=== PATIENT | male | born 1965 | race Two or more races ===

== ENCOUNTER 2023-06-09 22:42 | Emergency (ER) | payer OTHER ==
[~2023-06-09] VITALS: Ht 177.8 cm; Wt 80.0 kg
[2023-06-09] MEDS ORDERED: APIX5TAB PO (23:45)
[2023-06-09] MEDS ORDERED: CEPH250C PO (23:45)
[2023-06-09] MEDS ORDERED: ACE3T PO (23:45)
[2023-06-09 23:53] VITALS: BP 142/92; PULSE 82; TEMP 98.4; O2SAT 98
[2023-06-09 23:57] VITALS: PULSE 116; RESP 18; O2SAT 96
== END 2023-06-09 23:58 | disposition home or self-care (01) ==
LOC: EDBD 22:42 → ER 22:42
DX: S01.01XA Laceration without foreign body of scalp, initial encounter (principal); Z76.0 Encounter for issue of repeat prescription; Y04.8XXA Assault by other bodily force, initial encounter; Y93.89 Activity, other specified; Y92.89 Other specified places as the place of occurrence of the external cause; Y99.8 Other external cause status
CPT/HCPCS: 12002

== ENCOUNTER 2023-08-16 03:44 | Inpatient (IN) | payer OTHER ==
[~2023-08-16] VITALS: Ht 180.3 cm; Wt 91.0 kg
[2023-08-16] VITALS (9 sets, daily range): BP systolic 119–134; BP diastolic 69–111; PULSE 59–138; RESP 18–22; TEMP 97.6–98.9; O2SAT 93–99
[~2023-08-16 03:44] MED LIST: ACE3T PO; APIX5TAB PO; CEPH250C PO
[2023-08-16 04:09] LABS: Basophils # (auto) 0.3 10 ^3/uL (0-0.2); Basophils % (auto) 2.5 % (0.0-2.0); Eosinophils # (auto) 0.1 10 ^3/uL (0-0.8); Eosinophils % (auto) 1.2 % (0.0-7.0); Hematocrit 43.4 % (41.0-53.0); Hemoglobin 13.9 g/dL (13.5-17.5); Lymphocytes # (auto) 2.3 10 ^3/uL (0.4-5.4); Lymphocytes % (auto) 20.6 % (10.0-50.0); Mean Corpuscular Hemoglobin 31.4 pg (28.0-32.0); Mean Corpuscular Hgb Conc. 32.1 g/dL (32.0-36.0); Mean Corpuscular Volume 97.7 fL (80.0-100.0); Monocytes # (auto) 1.2 10 ^3/uL (0-1.3); Neutrophils # (auto) 7.3 10 ^3/uL (1.6-8.6); Neutrophils % (auto) 64.7 % (37.0-80.0); Nucleated Red Blood Cells % 0.1 %; Red Blood Cells 4.45 10^6/uL (4.5-5.90); Red Cell Distribution Width 17.6 % (11.8-14.3); White Blood Cell 11.3 10^3/uL (4.4-10.8)
[2023-08-16 04:14] LABS: Chloride 102 mmol/L (98-107); Potassium 3.8 mmol/L (3.5-5.1); Sodium 135 mmol/L (136-145)
[2023-08-16 04:15] LABS: Anion Gap 12 (5-15); Calcium 9.2 mg/dL (8.7-10.4); Carbon Dioxide 21 mmol/L (20-30)
[2023-08-16] MEDS ORDERED: AMIODARONE BOLUS KIT 100 ML IV ONE (04:15)
[2023-08-16] MEDS: METOPROLOL TARTRATE 1MG/1ML-5ML VIAL IV ONE ×2 (04:18→20:35)
[2023-08-16 04:20] LABS: BUN/Creatinine Ratio 18.5 (10.0-20.0); Blood Urea Nitrogen 24 mg/dL (9-23); Glucose 140 mg/dL (74-106)
[2023-08-16] MEDS ORDERED: AMIODARONE 450mg/250ml AE 250 ML IV SCH (04:30)
[2023-08-16] MEDS: DIGOXIN (250MCG/ML) 2 ML AMPULE IV ONE (04:32)
[2023-08-16] MEDS: FUROSEMIDE 40 MG/4 ML VIAL IV ONE (05:52)
[2023-08-16] MEDS ORDERED: NITROGLYCERIN 0.4 MG SL TAB SL PRN (06:00)
[2023-08-16] MEDS ORDERED: ONDANSETRON HCL 4 MG/2 ML VIAL IV PRN (06:00)
[2023-08-16] MEDS ORDERED: ACETAMINOPHEN 325 MG TAB PO PRN (06:00)
[2023-08-16] MEDS ORDERED: MORPHINE SULFATE INJ 2 MG/ml SYRG IV PRN (06:00)
[2023-08-16] MEDS: IOHEXOL 350 MG/ML 100ML IJ ONE (06:33)
[2023-08-16 06:36] LABS: INR 1.36 (0.9-1.15); Partial Thromboplastin Time 27.8 SEC (24.5-34.5)
[2023-08-16] MEDS: ENOXAPARIN SOD 100 MG/1 ML SYRINGE SC SCH (06:47)
[2023-08-16] MEDS: METOPROLOL SUCCINATE XL 50 MG TAB PO SCH (08:18)
[2023-08-16 08:24] LABS: Urine Bacteria None Seen /hpf (None Seen); Urine WBC None Seen /hpf (0 - 3)
[2023-08-16 08:44] LABS: Urine Blood Negative /uL (Negative); Urine Clarity Clear (Clear); Urine Protein, UAD Negative (Negative); Urine Specific Gravity 1.009 (1.001-1.035); Urine Urobilinogen Normal (Negative); Urine pH 6.5 (5.0-9.0)
[2023-08-16 08:45] LABS: Urine Color Straw (Yellow)
[2023-08-16] MEDS: ASPirin 81 mg TAB PO SCH (11:18)
[2023-08-16] MEDS: DIGOXIN 0.125 MG TAB PO SCH (11:18)
[2023-08-16] MEDS: LOSARTAN POTASSIUM 25 MG TAB PO SCH (11:19)
[2023-08-16] MEDS ORDERED: DIGO0.12 PO (12:13)
[2023-08-16] MEDS ORDERED: METO-289 PO (12:13)
[2023-08-16] MEDS ORDERED: LOSA-533 PO (12:13)
[2023-08-16] MEDS ORDERED: FURO40TA4 PO (12:13)
[2023-08-16 12:14] LABS: Amphetamine Screen, Urine Neg (NEGATIVE); Barbiturate Scree,Urine Neg (NEGATIVE); Benzodiazephine Screen, Urine Neg (NEGATIVE); Cocaine Screen, Urine Neg (NEGATIVE); Opiate Scree,Urine Neg (NEGATIVE)
[2023-08-16 12:15] LABS: Cannabinoid Screen, Urine Neg (NEGATIVE); Phencyclidine Screen, Urine Neg (NEGATIVE)
[2023-08-16 15:22] LABS: Magnesium 1.7 mg/dL (1.6-2.6)
[2023-08-16] MEDS: MAGNESIUM SULFATE 1GM/100ML 100 ML IV ONE (17:10)
[2023-08-16] MEDS: FUROSEMIDE 20 MG/2 ML VIAL IV SCH (17:24)
[2023-08-16] MEDS: SACUBITRIL-VALSARTAN 24mg/26mg TAB PO SCH (22:43)
[2023-08-16] MEDS: ATORVASTATIN 20 MG TAB PO SCH (22:44)
[2023-08-17] VITALS (8 sets, daily range): BP systolic 104–123; BP diastolic 67–89; PULSE 50–111; RESP 17–20; TEMP 97.2–98.2; O2SAT 92–100
[2023-08-17] MEDS: FUROSEMIDE 20 MG/2 ML VIAL IV ONE (01:27)
[2023-08-17] MEDS: METOPROLOL TARTRATE 1MG/1ML-5ML VIAL IV ONE (03:19)
[2023-08-17 06:10] LABS: Basophils # (auto) 0.1 10 ^3/uL (0-0.2); Eosinophils # (auto) 0.1 10 ^3/uL (0-0.8); Eosinophils % (auto) 1.1 % (0.0-7.0); Hematocrit 42.7 % (41.0-53.0); Hemoglobin 13.9 g/dL (13.5-17.5); Lymphocytes # (auto) 2.2 10 ^3/uL (0.4-5.4); Lymphocytes % (auto) 19.4 % (10.0-50.0); Mean Corpuscular Hemoglobin 31.7 pg (28.0-32.0); Mean Corpuscular Hgb Conc. 32.5 g/dL (32.0-36.0); Mean Corpuscular Volume 97.6 fL (80.0-100.0); Monocytes # (auto) 1.4 10 ^3/uL (0-1.3); Monocytes % (auto) 12.8 % (0.0-12.0); Neutrophils # (auto) 7.4 10 ^3/uL (1.6-8.6); Neutrophils % (auto) 65.7 % (37.0-80.0); Red Blood Cells 4.37 10^6/uL (4.5-5.90); Red Cell Distribution Width 17.5 % (11.8-14.3); White Blood Cell 11.2 10^3/uL (4.4-10.8)
[2023-08-17 06:24] LABS: Alanine Aminotransferase 38 U/L (7-40); Albumin 3.7 g/dL (3.2-4.8); Alkaline Phosphatase 130 U/L (46-116); Anion Gap 12 (5-15); Aspartate Aminotransferase 42 U/L (13-40); BUN/Creatinine Ratio 19.7 (10.0-20.0); Blood Urea Nitrogen 23 mg/dL (9-23); Calcium 8.8 mg/dL (8.5-10.1); Carbon Dioxide 22 mmol/L (20-30); Chloride 102 mmol/L (98-107); Glucose 89 mg/dL (74-106); Potassium 3.6 mmol/L (3.5-5.1); Sodium 136 mmol/L (136-145)
[2023-08-17 06:25] LABS: Total Protein 5.7 g/dL (5.7-8.2)
[2023-08-17] MEDS: ASPirin 81 mg TAB PO SCH (09:17)
[2023-08-17] MEDS: POTASSIUM CHL 20 Meq TABLET PO ONE (09:17)
[2023-08-17] MEDS: SPIRONOLACTONE 25 MG TAB PO SCH (09:18)
[2023-08-17] MEDS: EMPAGLIFLOZIN 10 MG TAB PO SCH (09:19)
[2023-08-17] MEDS: METOPROLOL SUCCINATE XL 50 MG TAB PO SCH (09:19)
[2023-08-17] MEDS: MAGNESIUM SULFATE 1GM/100ML 100 ML IV ONE (17:01)
[2023-08-17] MEDS: APIXABAN 5 MG TAB PO SCH (21:25)
[2023-08-18] VITALS (7 sets, daily range): BP systolic 102–116; BP diastolic 67–87; PULSE 63–131; RESP 17–20; TEMP 97.6–98.3; O2SAT 94–98
[2023-08-18 07:45] LABS: Anion Gap 10 (5-15); Carbon Dioxide 23 mmol/L (20-30); Chloride 105 mmol/L (98-107); Potassium 3.6 mmol/L (3.5-5.1); Sodium 138 mmol/L (136-145)
[2023-08-18 07:47] LABS: Calcium 8.8 mg/dL (8.5-10.1)
[2023-08-18 07:52] LABS: BUN/Creatinine Ratio 16.3 (10.0-20.0); Blood Urea Nitrogen 24 mg/dL (9-23); Glucose 100 mg/dL (74-106)
[2023-08-19 01:00] VITALS: BP 114/93; PULSE 67; RESP 16; TEMP 97.7; O2SAT 93
[2023-08-19 05:00] VITALS: BP 106/83; PULSE 75; RESP 18; TEMP 97.7; O2SAT 93
[2023-08-19 07:35] VITALS: PULSE 120
[2023-08-19 09:22] VITALS: BP 116/70; PULSE 103; RESP 18; TEMP 97.6; O2SAT 95
[2023-08-19] MEDS ORDERED: SPIR25TA PO (12:22)
[2023-08-19] MEDS ORDERED: METO-6 PO (12:22)
[2023-08-19] MEDS ORDERED: ASPI-325 PO (12:22)
[2023-08-19] MEDS ORDERED: ATOR20TA50 PO (12:22)
[2023-08-19] MEDS ORDERED: DIGO0.12 PO (12:22)
[2023-08-19] MEDS ORDERED: FURO40TA4 PO (12:22)
[2023-08-19] MEDS ORDERED: APIX5TAB PO (12:22)
[2023-08-19] MEDS ORDERED: EMPA1TAB PO (12:22)
[2023-08-19] MEDS ORDERED: SACU1TAB PO (12:22)
[2023-08-19 14:50] VITALS: BP 101/81; PULSE 90; RESP 17; TEMP 98.1; O2SAT 96
== END 2023-08-19 15:58 | disposition home or self-care (01) | DRG 201 ==
LOC: ER 03:44 → TELE 06:09 → TELE-WESTW 12:13
PROVIDERS: ADMIT Nurse Practitioner; ATTEND Internal Medicine
DX: I48.20 Chronic atrial fibrillation, unspecified (principal); I21.A1 Myocardial infarction type 2; I50.23 Acute on chronic systolic (congestive) heart failure; I42.0 Dilated cardiomyopathy; I11.0 Hypertensive heart disease with heart failure; E78.5 Hyperlipidemia, unspecified; F17.210 Nicotine dependence, cigarettes, uncomplicated; Z88.0 Allergy status to penicillin; Z88.8 Allergy status to other drugs, medicaments and biological substances; Z79.1 Long term (current) use of non-steroidal anti-inflammatories (NSAID); Z79.2 Long term (current) use of antibiotics; Z79.899 Other long term (current) drug therapy; Z82.49 Family history of ischemic heart disease and other diseases of the circulatory system; Z79.01 Long term (current) use of anticoagulants; Z91.128 Patient's intentional underdosing of medication regimen for other reason
CPT/HCPCS: 36415; 71045; 71275; 80048; 80053; 80061; 80307; 81001; 83036; 83735; 83880; 84443; 84484; 85025; 85379; 85610; 85730; 87081; 93005; 93306; 96374; 96375; 99291; G0378

== ENCOUNTER 2024-02-11 04:07 | Inpatient (IN) | payer OTHER ==
[~2024-02-11] VITALS: Ht 185.4 cm; Wt 94.6 kg
[~2024-02-11 04:07] MED LIST changes: -ACE3T PO; +ASPI-325 PO; +ATOR20TA50 PO; -CEPH250C PO; +DIGO0.12 PO; +EMPA1TAB PO; +FURO40TA4 PO; +METO-6 PO; +SACU1TAB PO; +SPIR25TA PO
[2024-02-11 05:45] VITALS: PULSE 125; RESP 18; O2SAT 99
[2024-02-11 07:26] VITALS: PULSE 147; RESP 25; O2SAT 97
[2024-02-11] MEDS: METOPROLOL TARTRATE 1MG/1ML-5ML VIAL IV ONE ×2 (08:16→11:52)
[2024-02-11] MEDS: SPIRONOLACTONE 25 MG TAB PO ONE (08:16)
[2024-02-11] MEDS: SODIUM CHLORIDE 0.9% 1,000 ML IV ONE (08:19)
[2024-02-11 08:43] LABS: Basophils # (auto) 0.1 10 ^3/uL (0-0.2); Eosinophils # (auto) 0.1 10 ^3/uL (0-0.8); Eosinophils % (auto) 1.2 % (0.0-7.0); Lymphocytes # (auto) 1.4 10 ^3/uL (0.4-5.4); Mean Corpuscular Hgb Conc. 31.8 g/dL (32.0-36.0); Nucleated Red Blood Cells % 0.1 %
[2024-02-11 08:45] LABS: Basophils % (auto) 1.2 % (0.0-2.0); Hematocrit 38.7 % (41.0-53.0); Hemoglobin 12.3 g/dL (13.5-17.5); Lymphocytes % (auto) 15.1 % (10.0-50.0); Mean Corpuscular Hemoglobin 26.3 pg (28.0-32.0); Mean Corpuscular Volume 82.7 fL (80.0-100.0); Monocytes # (auto) 1.3 10 ^3/uL (0-1.3); Neutrophils % (auto) 67.5 % (37.0-80.0); Platelet Count (auto) 323 10^3/uL (140-450); Red Blood Cells 4.68 10^6/uL (4.5-5.90); Red Cell Distribution Width 21.5 % (11.8-14.3)
[2024-02-11] MEDS: FUROSEMIDE 20 MG/2 ML VIAL IV ONE (08:48)
[2024-02-11 08:56] LABS: INR 1.39 (0.9-1.15); Partial Thromboplastin Time 26.2 SEC (24.5-34.5); Prothrombin Time 14.4 sec (9.3-11.8)
[2024-02-11 08:59] LABS: Alanine Aminotransferase 27 U/L (7-40); Albumin 4.1 g/dL (3.2-4.8); Alkaline Phosphatase 229 U/L (46-116); Anion Gap 8 (5-15); Aspartate Aminotransferase 31 U/L (13-40); BUN/Creatinine Ratio 17.2 (10.0-20.0); Bilirubin, Total 2.5 mg/dL (0.2-1.0); Blood Urea Nitrogen 23 mg/dL (9-23); Calcium 9.6 mg/dL (8.7-10.4); Carbon Dioxide 27 mmol/L (20-31); Chloride 101 mmol/L (98-107); Glucose 126 mg/dL (74-106); Magnesium 2.2 mg/dL (1.6-2.6); Potassium 3.7 mmol/L (3.5-5.1); Sodium 136 mmol/L (136-145); Total Protein 6.6 g/dL (5.7-8.2)
[2024-02-11 10:19] LABS: Urine Bacteria None Seen /hpf (None Seen)
[2024-02-11] MEDS: IOHEXOL 350 MG/ML 100ML IJ ONE (10:44)
[2024-02-11 10:47] LABS: Urine Blood Negative /uL (Negative); Urine Clarity Clear (Clear); Urine Color Yellow (Yellow); Urine Hyaline Cast MANY /lpf (0 - 2); Urine Mucus FEW (None Seen); Urine Protein, UAD 1+ (Negative); Urine Specific Gravity 1.022 (1.001-1.035); Urine Urobilinogen 2 mg/dL (Negative); Urine WBC 1 /hpf (0 - 3)
[2024-02-11] MEDS ORDERED: NITROGLYCERIN 0.4 MG SL TAB SL PRN (11:45)
[2024-02-11] MEDS ORDERED: MORPHINE SULFATE INJ 2 MG/ml SYRG IV PRN ×2 (11:45)
[2024-02-11] MEDS ORDERED: ONDANSETRON HCL 4 MG/2 ML VIAL IV PRN (11:45)
[2024-02-11] MEDS: dilTIAZem 25 MG/5 ML VIAL IV ONE (11:46)
[2024-02-11 12:54] LABS: Amphetamine Screen, Urine Pos (NEGATIVE); Barbiturate Scree,Urine Neg (NEGATIVE); Benzodiazephine Screen, Urine Neg (NEGATIVE); Cannabinoid Screen, Urine Neg (NEGATIVE); Opiate Scree,Urine Neg (NEGATIVE); Phencyclidine Screen, Urine Neg (NEGATIVE)
[2024-02-11 12:59] LABS: Cocaine Screen, Urine Neg (NEGATIVE)
[2024-02-11] MEDS: ENOXAPARIN SOD 40 MG/0.4 ML SYRINGE SC SCH (14:05)
[2024-02-11 17:35] LABS: Body Fluid pH 8
[2024-02-11] MEDS: FUROSEMIDE 20 MG/2 ML VIAL IV SCH (18:12)
[2024-02-11 19:17] LABS: Body Fluid Polymorphonuclear 70 % (0-25); Body Fluid Red Blood Cells 290 CUMM (0-2000); Body Fluid White Blood Cells 113 CUMM (0-200)
[2024-02-11 19:25] VITALS: PULSE 135; RESP 22; O2SAT 97
[2024-02-11] MEDS ORDERED: ATORVASTATIN 20 MG TAB PO SCH (22:00)
[2024-02-11] MEDS ORDERED: METOPROLOL SUCCINATE XL 50 MG TAB PO SCH (22:00)
[2024-02-11] MEDS: SACUBITRIL-VALSARTAN 24mg/26mg TAB PO SCH (22:48)
[2024-02-11] MEDS: ATORVASTATIN 20 MG TAB PO SCH (22:49)
[2024-02-11] MEDS: APIXABAN 5 MG TAB PO SCH (22:49)
[2024-02-12] VITALS (37 sets, daily range): BP systolic 33–135; BP diastolic 17–112; PULSE 100–156; RESP 13–35; TEMP 97.6–98.2; O2SAT 92–100
[2024-02-12 05:33] LABS: Hematocrit 38.4 % (41.0-53.0); Mean Corpuscular Hemoglobin 26.4 pg (28.0-32.0); Mean Corpuscular Hgb Conc. 31.3 g/dL (32.0-36.0); Mean Corpuscular Volume 84.3 fL (80.0-100.0); Platelet Count (auto) 304 10^3/uL (140-450); Red Blood Cells 4.55 10^6/uL (4.5-5.90); White Blood Cell 10.8 10^3/uL (4.4-10.8)
[2024-02-12 05:38] LABS: Red Cell Distribution Width 21.5 % (11.8-14.3)
[2024-02-12 05:40] LABS: Band Neutrophils % (manual) 0; Basophils % (manual) 0 (0.0-2.0); Blast Cells 0; Eosinophils % (manual) 0 (0-7); Metamyelocytes % 0; Myelocytes % 0; Promyelocytes % 0; Reactive Lymphocytes 0
[2024-02-12 05:41] LABS: Anion Gap 11 (5-15); Carbon Dioxide 23 mmol/L (20-31); Chloride 99 mmol/L (98-107); Potassium 3.9 mmol/L (3.5-5.1); Sodium 133 mmol/L (136-145)
[2024-02-12 05:42] LABS: Calcium 9.2 mg/dL (8.7-10.4)
[2024-02-12 05:47] LABS: BUN/Creatinine Ratio 17.1 (10.0-20.0); Blood Urea Nitrogen 26 mg/dL (9-23); Glucose 104 mg/dL (74-106)
[2024-02-12 08:02] LABS: Lymphocytes % (manual) 20 (10.0-50.0); Monocytes % (manual) 21 (0-12); Platelet Estimate Adequate
[2024-02-12] MEDS: EMPAGLIFLOZIN 10 MG TAB PO SCH (10:26)
[2024-02-12 11:08] LABS: Protein, Body Fluid 1.4 g/dL (.)
[2024-02-12] MEDS: DIGOXIN 0.125 MG TAB PO ONE (16:27)
[2024-02-12] MEDS: POTASSIUM CHL 20 Meq TABLET PO ONE (16:27)
[2024-02-12] MEDS: METOPROLOL TARTRATE 1MG/1ML-5ML VIAL IV ONE (16:28)
[2024-02-12] MEDS: PHENYLEPHRINE IV 250 ML IV SCH (16:55)
[2024-02-12] MEDS: PHENYLEPHRINE IV 250 ML IV ONE (16:59)
[2024-02-12] MEDS: FUROSEMIDE 40 MG/4 ML VIAL IV SCH (18:35)
[2024-02-12] MEDS: FUROSEMIDE INJECTION 100 MG in SODIUM CHL 0.9% 100 ML IV ONE (20:55)
[2024-02-12] MEDS: METOPROLOL SUCCINATE XL 50 MG TAB PO SCH (21:54)
[2024-02-13] VITALS (47 sets, daily range): BP systolic 91–137; BP diastolic 36–96; PULSE 60–159; RESP 14–46; TEMP 97.5–99.7; O2SAT 82–100
[2024-02-13] MEDS ORDERED: LORazepam 0.5 MG TAB PO PRN (02:00)
[2024-02-13 06:50] LABS: Chloride 98 mmol/L (98-107); Potassium 3.6 mmol/L (3.5-5.1); Sodium 135 mmol/L (136-145)
[2024-02-13 06:51] LABS: Anion Gap 9 (5-15); Carbon Dioxide 28 mmol/L (20-31)
[2024-02-13 06:52] LABS: Calcium 8.9 mg/dL (8.7-10.4)
[2024-02-13 06:56] LABS: BUN/Creatinine Ratio 23.8 (10.0-20.0); Glucose 92 mg/dL (74-106)
[2024-02-13 07:01] LABS: Blood Urea Nitrogen 39 mg/dL (9-23)
[2024-02-13 07:13] LABS: Basophils # (auto) 0.1 10 ^3/uL (0-0.2); Eosinophils # (auto) 0.1 10 ^3/uL (0-0.8); Hematocrit 38.3 % (41.0-53.0); Hemoglobin 12.1 g/dL (13.5-17.5); Lymphocytes # (auto) 1.4 10 ^3/uL (0.4-5.4); Lymphocytes % (auto) 15.1 % (10.0-50.0); Mean Corpuscular Hgb Conc. 31.5 g/dL (32.0-36.0); Mean Corpuscular Volume 82.6 fL (80.0-100.0); Monocytes # (auto) 1.3 10 ^3/uL (0-1.3); Monocytes % (auto) 14.5 % (0.0-12.0); Neutrophils # (auto) 6.2 10 ^3/uL (1.6-8.6); Neutrophils % (auto) 68.4 % (37.0-80.0); Nucleated Red Blood Cells % 0.1 %; Platelet Count (auto) 313 10^3/uL (140-450); Red Blood Cells 4.63 10^6/uL (4.5-5.90); Red Cell Distribution Width 21.6 % (11.8-14.3)
[2024-02-13] MEDS: DIGOXIN 0.125 MG TAB PO SCH (09:11)
[2024-02-13] MEDS: TAMSULOSIN HYDROCHLORIDE 0.4 MG CAP PO ONE ×2 (10:45→17:34)
[2024-02-13] MEDS: DIGOXIN (250MCG/ML) 2 ML AMPULE IV ONE (13:45)
[2024-02-13] MEDS: POTASSIUM EFFERVESENT TAB 25 MEQ PO ONE (17:11)
[2024-02-14] VITALS (34 sets, daily range): BP systolic 97–174; BP diastolic 63–96; PULSE 90–136; RESP 12–28; TEMP 97.5–98; O2SAT 37–100
[2024-02-14 05:43] LABS: Chloride 103 mmol/L (98-107); Potassium 4.4 mmol/L (3.5-5.1); Sodium 136 mmol/L (136-145)
[2024-02-14 05:44] LABS: Anion Gap 5 (5-15); Carbon Dioxide 28 mmol/L (20-31)
[2024-02-14 05:45] LABS: Basophils # (auto) 0.1 10 ^3/uL (0-0.2); Basophils % (auto) 0.9 % (0.0-2.0); Calcium 8.6 mg/dL (8.7-10.4); Eosinophils # (auto) 0.2 10 ^3/uL (0-0.8); Hematocrit 37.3 % (41.0-53.0); Hemoglobin 11.9 g/dL (13.5-17.5); Lymphocytes # (auto) 1.1 10 ^3/uL (0.4-5.4); Lymphocytes % (auto) 13.8 % (10.0-50.0); Mean Corpuscular Hemoglobin 26.5 pg (28.0-32.0); Mean Corpuscular Hgb Conc. 31.8 g/dL (32.0-36.0); Mean Corpuscular Volume 83.4 fL (80.0-100.0); Monocytes # (auto) 1.2 10 ^3/uL (0-1.3); Monocytes % (auto) 14.8 % (0.0-12.0); Neutrophils # (auto) 5.7 10 ^3/uL (1.6-8.6); Neutrophils % (auto) 68.5 % (37.0-80.0); Nucleated Red Blood Cells % 0.1 %; Platelet Count (auto) 290 10^3/uL (140-450); Red Blood Cells 4.47 10^6/uL (4.5-5.90); Red Cell Distribution Width 21.4 % (11.8-14.3); White Blood Cell 8.3 10^3/uL (4.4-10.8)
[2024-02-14 05:49] LABS: BUN/Creatinine Ratio 23.4 (10.0-20.0); Blood Urea Nitrogen 33 mg/dL (9-23); Glucose 112 mg/dL (74-106)
[2024-02-14] MEDS: SPIRONOLACTONE 25 MG TAB PO SCH (09:57)
[2024-02-14] MEDS: CALCIUM CARB 500 MG CHEW TAB PO PRN (10:27)
[2024-02-14 11:17] LABS: Hepatitis B Surface Antigen Negative (Negative)
[2024-02-14 11:37] LABS: Hepatitis A Ab IgM Negative
[2024-02-14 11:39] LABS: Hepatitis B Core IgM Negative; Hepatitis C Antibody Negative (Negative)
[2024-02-14] MEDS ORDERED: CALCIUM CARB 500 MG CHEW TAB PO SCH (12:00)
[2024-02-14] MEDS: TAMSULOSIN HYDROCHLORIDE 0.4 MG CAP PO SCH (18:00)
[2024-02-15] VITALS (9 sets, daily range): BP systolic 99–122; BP diastolic 63–94; PULSE 56–140; RESP 16–20; TEMP 36.5; O2SAT 96–98
[2024-02-15] MEDS ORDERED: ALBUTEROL SULF 2.5 MG/0.5ML(0.5%) NEB SOLN NEB SCH (06:00)
[2024-02-15 06:48] LABS: Anion Gap 7 (5-15); Carbon Dioxide 24 mmol/L (20-31); Chloride 106 mmol/L (98-107); Potassium 4.6 mmol/L (3.5-5.1); Sodium 137 mmol/L (136-145)
[2024-02-15 06:50] LABS: Calcium 9.4 mg/dL (8.7-10.4)
[2024-02-15 06:54] LABS: BUN/Creatinine Ratio 18.6 (10.0-20.0); Basophils # (auto) 0.1 10 ^3/uL (0-0.2); Basophils % (auto) 0.9 % (0.0-2.0); Blood Urea Nitrogen 24 mg/dL (9-23); Eosinophils # (auto) 0.2 10 ^3/uL (0-0.8); Eosinophils % (auto) 1.8 % (0.0-7.0); Glucose 112 mg/dL (74-106); Hematocrit 38.5 % (41.0-53.0); Hemoglobin 12.3 g/dL (13.5-17.5); Lymphocytes # (auto) 1.1 10 ^3/uL (0.4-5.4); Mean Corpuscular Hemoglobin 26.6 pg (28.0-32.0); Mean Corpuscular Volume 83.3 fL (80.0-100.0); Monocytes # (auto) 1.3 10 ^3/uL (0-1.3); Monocytes % (auto) 14.7 % (0.0-12.0); Neutrophils # (auto) 6.4 10 ^3/uL (1.6-8.6); Neutrophils % (auto) 70.6 % (37.0-80.0); Nucleated Red Blood Cells % 0.1 %; Platelet Count (auto) 334 10^3/uL (140-450); Red Blood Cells 4.62 10^6/uL (4.5-5.90); Red Cell Distribution Width 21.9 % (11.8-14.3); White Blood Cell 9.1 10^3/uL (4.4-10.8)
[2024-02-15] MEDS ORDERED: guaiFENesin-DM 100/10mg/5ml SYR PO PRN (09:15)
[2024-02-15] MEDS ORDERED: FURO1TAB31 PO (09:41)
[2024-02-15] MEDS ORDERED: DIGO1TAB48 PO (09:41)
[2024-02-15] MEDS ORDERED: CARV-214 PO (09:41)
[2024-02-15] MEDS: CARVEDILOL 3.125 MG TAB PO SCH (10:18)
[2024-02-15] MEDS: FUROSEMIDE 20 MG/2 ML VIAL IV ONE (10:19)
[2024-02-15] MEDS ORDERED: FUROSEMIDE 20 MG TAB PO SCH ×2 (18:00)
== END 2024-02-15 13:55 | disposition home or self-care (01) | DRG 133 ==
LOC: ER 04:07 → TELE 11:42 → DOU IN ICU 02-12 12:27 → TELE-CENTR 02-14 13:25
PROVIDERS: ADMIT Internal Medicine; ATTEND Internal Medicine
PROC: 0W993ZZ Drainage of Right Pleural Cavity, Percutaneous Approach (ICD-10-PCS; principal; 2024-02-11)
DX: J96.01 Acute respiratory failure with hypoxia (principal); N17.0 Acute kidney failure with tubular necrosis; I50.23 Acute on chronic systolic (congestive) heart failure; I42.0 Dilated cardiomyopathy; D68.69 Other thrombophilia; E87.1 Hypo-osmolality and hyponatremia; I42.7 Cardiomyopathy due to drug and external agent; I13.0 Hypertensive heart and chronic kidney disease with heart failure and stage 1 through stage 4 chronic kidney disease, or unspecified chronic kidney disease; I47.20 Ventricular tachycardia, unspecified; I48.19 Other persistent atrial fibrillation; N18.2 Chronic kidney disease, stage 2 (mild); E66.9 Obesity, unspecified; J91.8 Pleural effusion in other conditions classified elsewhere; N40.1 Benign prostatic hyperplasia with lower urinary tract symptoms; R33.8 Other retention of urine; F17.210 Nicotine dependence, cigarettes, uncomplicated; T50.995A Adverse effect of other drugs, medicaments and biological substances, initial encounter; Z82.49 Family history of ischemic heart disease and other diseases of the circulatory system; Z91.199 Patient's noncompliance with other medical treatment and regimen due to unspecified reason; Z68.27 Body mass index [BMI] 27.0-27.9, adult; Z86.718 Personal history of other venous thrombosis and embolism; Z88.0 Allergy status to penicillin; Y92.89 Other specified places as the place of occurrence of the external cause
CPT/HCPCS: 32555; 36415; 71045; 71046; 71275; 76604; 76942; 80048; 80053; 80074; 80162; 80307; 81001; 83735; 83880; 83986; 84443; 84484; 85007; 85025; 85027; 85379; 85610; 85730; 86703; 87081; 87205; 89051; 93005; 93306; G0378

== ENCOUNTER 2024-04-15 02:23 | Emergency (ER) | payer OTHER ==
[~2024-04-15] VITALS: Ht 180.3 cm; Wt 102.0 kg
[~2024-04-15 02:23] MED LIST changes: +CARV-214 PO; +DIGO1TAB48 PO; +FURO1TAB31 PO; -METO-6 PO
[2024-04-15 03:40] VITALS: BP 102/74; PULSE 85; RESP 18; TEMP 97.6; O2SAT 98
[2024-04-15] MEDS ORDERED: CLIN1CAP70 PO (03:44)
[2024-04-15] MEDS ORDERED: ACET500T58 PO (03:44)
--- NOTE | 2024-04-15 03:44 | ED.PDOC ---
Eye-HPI HPI Comments 58 year old male presents to ER with complaints of toothache x 1 week. Patient reports he has been experiencing left upper toothache with associated swelling to left upper gums x 1 week. He rates his current left upper tootache pain a 9/10 without radiation. States he has been taking aspirin for his pain without relief. Patient presents to ER ambulatory on arrival, with steady gait, in no distress and states he has not yet contacted a dentist to follow-up with but plans on contacting one this week. Denies fever, body aches, chills, facial swelling, headache or any further symptoms/complaints Chief Complaint: Tooth Pain Time Seen by MD: 02:24 Primary Care Provider: JANICE Reviewed Notes: Nurses Notes, Medications, Allergies Allergies: Coded Allergies: Amiodarone (Verified Allergy, Unknown, 08/16/23) Metoprolol (Verified Allergy, Unknown, rapid decrease in blood pressure, 02/13/24) Penicillins (Verified Allergy, Unknown, 06/09/23) Home Meds Active Scripts Acetaminophen (Acetaminophen) 500 Mg Tab, 500 MG PO QIDP, #30 TAB 0 Refills Prov:DONNELL BRITO 04/15/24 Clindamycin Hcl (Clindamycin Hcl) 300 Mg Cap, 300 MG PO QID for 7 Days, #28 CAP 0 Refills Prov:DONNELL BRITO 04/15/24 Furosemide (Lasix) 40 Mg Tab, 40 MG PO DAILY for 30 Days, #30 TAB Prov:ANTIONE LUA RESIDENT 02/15/24 Carvedilol (COREG) 3.125 Mg Tab, 3.125 MG PO Q12HR for 30 Days, #60 TAB Prov:ANTIONE LUA RESIDENT 02/15/24 Digoxin (Lanoxin) 125 Mcg Tab, 0.125 MG PO DAILY for 30 Days, #30 TAB Prov:ANTIONE LUA RESIDENT 02/15/24 Spironolactone (Aldactone) 25 Mg Tab, 12.5 MG PO DAILY for 30 Days, #15 TAB 6 Refills Prov:JAH AYALA DO 08/19/23 Sacubitril-Valsartan (Entresto 24-26 mg) 1 Tab Tab, 1 TAB PO BID for 30 Days, #60 TAB 6 Refills Prov:JAH AYALA DO 08/19/23 Empagliflozin (Jardiance) 10 Mg Tab, 10 MG PO DAILY for 30 Days, #30 TAB 6 Refills Prov:JAH AYALA DO 08/19/23 Atorvastatin Calcium (ATORVASTATIN CALCIUM) 20 Mg Tab, 10 MG PO HS for 30 Days, #15 TAB 6 Refills Prov:JAH AYALA DO 08/19/23 Aspirin (Aspirin Low Dose) 81 Mg Tab, 81 MG PO DAILY for 30 Days, #30 TAB 6 Refills Prov:JAH AYALA DO 08/19/23 Digoxin (Digoxin) 125 Mcg Tab, 1 TAB PO DAILY for 30 Days, #30 TAB 6 Refills Prov:JAH AYALA DO 08/19/23 Furosemide (Furosemide) 40 Mg Tab, 1 TAB PO DAILY for 30 Days, #30 TAB 6 Refills Prov:JAH AYALA DO 08/19/23 Apixaban Base (ELIQUIS) 5 Mg Tab, 5 MG PO BID for 30 Days, #60 TAB 6 Refills Prov:JAH AYALA DO 08/19/23 Information Source: Patient Mode of Arrival: Ambulatory Past Medical History PAST MEDICAL HISTORY: AFIB, CHF, High Lipids, HTN Surgical History: Hernia Repair Family History Family History: Unknown Social History Smoker: Cigarettes, Less Than 1 Pack/Day Alcohol: Occasionally Drugs: Methamphetamine Lives In: Home Constitutional: denies: chills, diaphoresis, fatigue, fever, malaise, sweats, weakness, others EENTM: reports: others (As stated in HPI) Respiratory: denies: cough, hemoptysis, orthopnea, SOB at rest, shortness of breath, SOB with excertion, stridor, wheezing, others Cardiovascular: denies: chest pain, dizzy spells, diaphoresis, Dyspnea on exertion, edema, irregular heart beat, left arm pain, lightheadedness, palpitations, PND, syncope, others Gastrointestinal: denies: abdomen distended, abdominal pain, blood streaked bowels, constipated, diarrhea, dysphagia, difficulty swallowing, hematemesis, melena, nausea, poor appetite, poor fluid intake, rectal bleeding, rectal pain, vomiting, others Genitourinary: denies: burning, dysuria, flank pain, frequency, hematuria, incontinence, penile discharge, penile sore, pain, testicle pain, testicle swelling, urgency, others Neurological: denies: dizziness, fainting, headache, left sided numbness, left sided weakness, numbness, paresthesia, pre-existing deficit, right sided numbness, right sided weakness, seizure, speech problems, tingling, tremors, weakness, others Musculoskeletal: denies: back pain, gout, joint pain, joint swelling, muscle pain, muscle stiffness, neck pain, others Integumetry: denies: bruises, change in color, change in hair/nails, dryness, laceration, lesions, lumps, rash, wounds, others Allergic/Immunocompromised: denies: Difficulty Healing, Frequent Infections, Hives, Itching, others Hematologic/Lymphatic: denies: anemia, blood clots, easy bleeding, easy bruising, swollen glands, others Endocrine: denies: excessive hunger, excessive sweating, excessive thirst, excessive urination, flushing, intolerance to cold, intolerance to heat, unexplained weight gain, unexplained weight loss, others Psychiatric: denies: anxiety, bipolar disorder, depression, hopeless, panic disorder, schizophrenia, sleepless, suicidal, others Physical Exam General Appearance: No Apparent Distress HEENT: PERRL/EOMI, Pharynx Normal, TMs Normal Neck: Full Range of Motion, Non-Tender, Normal Respiratory: Chest Non-Tender, Lungs Clear, No Accessory Muscle Use, No Respiratory Distress, Normal Breath Sounds Cardiovascular: No Murmur, No Gallop, Regular Rate/Rhythm Breast Exam: Deferred Gastrointestinal: NOT DONE Genitalia: Deferred Pelvic: Deferred Rectal: Deferred Extremities: Normal capillary refill, Normal range of motion Neurologic: Alert, certified nurse midwife II-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 Was a procedure done?: No Sedation Sedation?: No Images 1 - Missing tooth #12 noted with mild surrounding gum swelling/erythema, no bleeding/drainage noted. No facial swelling/skin changes noted. EENT DIFF Eye: N/A Mouth: Thrush, Other (dental abscess, Angel's angina, fractured tooth) X-Ray, Labs, Meds, VS Vital Signs Date Time Temp Pulse Resp B/P (MAP) Pulse Ox O2 Delivery O2 Flow Rate FiO2 04/15/24 03:40 85 18 98 Room Air 04/15/24 03:40 97.6 85 18 102/74 (83) 98 97.6 04/15/24 03:15 97.6 85 18 102/74 (83) 98 Hep-lock IV ordered Clindamycin 900 IV ordered Hurricane spray ordered. Patient educated on proper use/dosage Patient reported improvement in symptoms and in no distress prior to discharge Smoking/methamphetamine cessation discussed and advised Advised to follow up with PCP and dentist in 1-2 days Patient verbalized understanding and agreeable with current plan of care Advised to return to ER immediately if symptoms worsen Time of 1ST Reevaluation: 03:20 Reevaluation 1ST: N/A Patient Education/Counseling: Diagnosis, Treatment, Prognosis, Need For Follow Up Family Education/Counseling: No Family Present Departure 1 Departure Time of Disposition: 03:42 Impression: Primary Impression: Dental infection Disposition: 01 HOME / SELF CARE / HOMELESS Condition: Stable e-Prescriptions Acetaminophen (Acetaminophen) 500 Mg Tab 500 MG PO QIDP, #30 TAB 0 Refills Prov: DONNELL BRITO 04/15/24 Clindamycin Hcl (Clindamycin Hcl) 300 Mg Cap 300 MG PO QID for 7 Days, #28 CAP 0 Refills Prov: DONNELL BRITO 04/15/24 Discharged With: Self Critical Care Note Critical Care Time?: No Stability Stability form required: No Heart Score Heart Score: Heart Score Response (Comments) Value History N/A 0 EKG N/A 0 Age N/A 0 Risk Factors N/A 0 Troponin N/A 0 Total 0 DONNELL BRITO Apr 15, 2024 03:44
[2024-04-15] MEDS: BENZOCAINE (DENTAL) 20 % SPRAY 60ML MT ONE (03:58)
[2024-04-15] MEDS: CLINDAMYCIN 900MG IV 50 ML IV ONE (04:13)
== END 2024-04-15 05:07 | disposition home or self-care (01) ==
LOC: ER 02:23
DX: K04.7 Periapical abscess without sinus (principal); I11.0 Hypertensive heart disease with heart failure; I50.9 Heart failure, unspecified; I48.91 Unspecified atrial fibrillation; F17.210 Nicotine dependence, cigarettes, uncomplicated; E78.5 Hyperlipidemia, unspecified; Z79.01 Long term (current) use of anticoagulants; Z79.82 Long term (current) use of aspirin; Z79.84 Long term (current) use of oral hypoglycemic drugs; Z79.899 Other long term (current) drug therapy; Z88.0 Allergy status to penicillin; Z98.890 Other specified postprocedural states; Z88.8 Allergy status to other drugs, medicaments and biological substances
CPT/HCPCS: 96365; 99284; J3490

== ENCOUNTER 2024-09-02 20:58 | Inpatient (IN) | payer OTHER ==
[~2024-09-02] VITALS: Ht 180.3 cm; Wt 83.3 kg
[2024-09-02] MEDS: CEFEPIME 2GM/50ML NS 50 ML IV ONE (00:45)
[~2024-09-02 20:58] MED LIST changes: +ACET500T58 PO; +CLIN1CAP70 PO
[2024-09-02 21:42] LABS: Basophils # (auto) 0.1 10 ^3/uL (0-0.2); Eosinophils # (auto) 0.1 10 ^3/uL (0-0.8); Hemoglobin 14.3 g/dL (13.5-17.5); Lymphocytes # (auto) 1.3 10 ^3/uL (0.4-5.4); Monocytes # (auto) 1.7 10 ^3/uL (0-1.3); Nucleated Red Blood Cells % 0.1 %
[2024-09-02 21:43] LABS: Basophils % (auto) 0.9 % (0.0-2.0); Eosinophils % (auto) 0.5 % (0.0-7.0); Hematocrit 44.8 % (41.0-53.0); Lymphocytes % (auto) 11.8 % (10.0-50.0); Mean Corpuscular Hemoglobin 25.9 pg (28.0-32.0); Mean Corpuscular Hgb Conc. 31.9 g/dL (32.0-36.0); Mean Corpuscular Volume 81.2 fL (80.0-100.0); Monocytes % (auto) 14.7 % (0.0-12.0); Neutrophils # (auto) 8.1 10 ^3/uL (1.6-8.6); Neutrophils % (auto) 72.1 % (37.0-80.0); Platelet Count (auto) 367 10^3/uL (140-450); Red Blood Cells 5.51 10^6/uL (4.5-5.90); White Blood Cell 11.3 10^3/uL (4.4-10.8)
[2024-09-02 21:44] LABS: Red Cell Distribution Width 20.9 % (11.8-14.3)
--- NOTE | 2024-09-02 21:44 | ED.PDOC ---
SOB-HPI HPI Comments 59-year-old male with PMHx CHF, A-Fib presents with a chief complaint of SOB x 4 days. Patient mentions that he ran out of Lasix x 6 months ago. Patient mentions that he has been getting Lasix from a 2nd hand person and not getting refills from his primary care doctor. Patient also reports non-productive coughing. Chief Complaint: Shortness of Breath Time Seen by MD: 21:08 Primary Care Provider: JANICE Toussaint notes: Medications, Allergies Information Source: Patient Mode of Arrival: EMS Severity: Moderate Timing: Days Duration: Since onset Context: At Rest PE Risk Factors: None History of: CHF Prehospital treatment: 12 Lead EKG, [employer] Associated Signs and Symptoms: Cough If cough with SOB: Non-Productive Past Medical History PAST MEDICAL HISTORY: AFIB, CHF, High Lipids, HTN Surgical History: Hernia Repair Family History Family History: Unknown Social History Smoker: Cigarettes, Less Than 1 Pack/Day Alcohol: Occasionally Drugs: Methamphetamine Lives In: Home Constitutional: denies: chills, diaphoresis, fatigue, fever, malaise, sweats, weakness, others EENTM: denies: blurred vision, double vision, ear bleeding, ear discharge, ear drainage, ear pain, ear ringing, eye pain, eye redness, hearing loss, mouth pain, mouth swelling, nasal discharge, nose bleeding, nose congestion, nose pain, photophobia, tearing, throat pain, throat swelling, voice changes, others Respiratory: reports: cough, shortness of breath; denies: hemoptysis, orthopnea, SOB at rest, SOB with excertion, stridor, wheezing, others Cardiovascular: denies: chest pain, dizzy spells, diaphoresis, Dyspnea on exertion, edema, irregular heart beat, left arm pain, lightheadedness, palpitations, PND, syncope, others Gastrointestinal: denies: abdomen distended, abdominal pain, blood streaked bowels, constipated, diarrhea, dysphagia, difficulty swallowing, hematemesis, melena, nausea, poor appetite, poor fluid intake, rectal bleeding, rectal pain, vomiting, others Genitourinary: denies: burning, dysuria, flank pain, frequency, hematuria, incontinence, penile discharge, penile sore, pain, testicle pain, testicle swelling, urgency, others Neurological: denies: dizziness, fainting, headache, left sided numbness, left sided weakness, numbness, paresthesia, pre-existing deficit, right sided numbness, right sided weakness, seizure, speech problems, tingling, tremors, weakness, others Musculoskeletal: denies: back pain, gout, joint pain, joint swelling, muscle pain, muscle stiffness, neck pain, others Integumetry: denies: bruises, change in color, change in hair/nails, dryness, laceration, lesions, lumps, rash, wounds, others Allergic/Immunocompromised: denies: Difficulty Healing, Frequent Infections, Hives, Itching, others Hematologic/Lymphatic: denies: anemia, blood clots, easy bleeding, easy bruising, swollen glands, others Endocrine: denies: excessive hunger, excessive sweating, excessive thirst, excessive urination, flushing, intolerance to cold, intolerance to heat, unexplained weight gain, unexplained weight loss, others Psychiatric: denies: anxiety, bipolar disorder, depression, hopeless, panic disorder, schizophrenia, sleepless, suicidal, others All Other Systems: Reviewed and Negative Physical Exam General Appearance: Moderate Distress HEENT: Normal ENT Inspection, Pharynx Normal, TMs Normal Neck: Full Range of Motion, Non-Tender, Normal, Normal Inspection Respiratory: Chest Non-Tender, Lungs Clear, No Accessory Muscle Use, No Respiratory Distress, Normal Breath Sounds Cardiovascular: No Edema, No JVD, No Murmur, No Gallop, Normal Peripheral Pulses, Regular Rate/Rhythm Breast Exam: Deferred Gastrointestinal: No Organomegaly, Non Tender, No Pulsatile Mass, Normal Bowel Sounds, Soft Genitalia: Deferred Pelvic: Deferred Rectal: Deferred Extremities: No calf tenderness, Normal capillary refill, Normal inspection, Normal range of motion, Non-tender, No pedal edema Musculoskeletal : Apperance: Normal Neurologic: Alert, radio reporter II-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 Was a procedure done?: No Differential Dx Differential Diagnosis: CHF, COPD, Myocardial infarction, Pneumonia, Pulmonary Embolism, URI X-Ray, Labs, Meds, VS Vital Signs Date Time Temp Pulse Resp B/P (MAP) Pulse Ox O2 Delivery O2 Flow Rate FiO2 09/02/24 22:08 138 09/02/24 21:11 99.0 130 24 119/86 (97) 87 99.0 09/02/24 20:58 156 Lab Test 09/02/24 23:15 09/02/24 22:21 09/02/24 21:21 Range/Units Lactic Acid Level Pending 3.3 *H 0.4-2.0 mmol/L Troponin I High Sensitivity 48 50 </=54 ng/L White Blood Count 11.3 H 4.4-10.8 10^3/uL Red Blood Count 5.51 4.5-5.90 10^6/uL Hemoglobin 14.3 13.5-17.5 g/dL Hematocrit 44.8 41.0-53.0 % Mean Corpuscular Volume 81.2 80.0-100.0 fL Mean Corpuscular Hemoglobin 25.9 L 28.0-32.0 pg Mean Corpuscular Hemoglobin Concent 31.9 L 32.0-36.0 g/dL Red Cell Distribution Width 20.9 H 11.8-14.3 % Platelet Count 367 140-450 10^3/uL Mean Platelet Volume 8.3 6.9-10.8 fL Neutrophils (%) (Auto) 72.1 37.0-80.0 % Lymphocytes (%) (Auto) 11.8 10.0-50.0 % Monocytes (%) (Auto) 14.7 H 0.0-12.0 % Eosinophils (%) (Auto) 0.5 0.0-7.0 % Basophils (%) (Auto) 0.9 0.0-2.0 % Neutrophils # (Auto) 8.1 1.6-8.6 10 ^3/uL Lymphocytes # (Auto) 1.3 0.4-5.4 10 ^3/uL Monocytes # (Auto) 1.7 H 0-1.3 10 ^3/uL Eosinophils # (Auto) 0.1 0-0.8 10 ^3/uL Basophils # (Auto) 0.1 0-0.2 10 ^3/uL Nucleated Red Blood Cells 0.1 % Sodium Level 133 L 136-145 mmol/L Potassium Level 4.5 3.5-5.1 mmol/L Chloride Level 102 98-107 mmol/L Carbon Dioxide Level 20 20-31 mmol/L Anion Gap 11 5-15 Blood Urea Nitrogen 39 H 9-23 mg/dL Creatinine 1.33 H 0.700-1.30 mg/dL Glomerular Filtration Rate Calc 62 >90 mL/min BUN/Creatinine Ratio 29.3 H 10.0-20.0 Serum Glucose 145 H 74-106 mg/dL Calcium Level 9.3 8.7-10.4 mg/dL B-Type Natriuretic Peptide 4229.28 0-100 pg/mL Current Medications Medications (Trade) Dose Ordered Sig/Zainab Route Start Time Stop Time Status Last Admin Digoxin (Lanoxin Injection) 125 mcg ONCE ONCE IV 09/02/24 21:45 09/02/24 21:46 DC 09/02/24 22:08 Time of 1ST Reevaluation: 21:38 Reevaluation 1ST: Unchanged Patient Education/Counseling: Diagnosis, Treatment Family Education/Counseling: No Family Present Departure 1 Departure Time of Disposition: 23:24 (Patient presents with AFib with RVR, acute on chronic systolic failure with volume overload. Patient with a right lower lobe pneumonia however patient is lying overloaded so empirically cover patient with antibiotics but we will not give fluids instead we will diurese the patient. We will admit patient for further workup) Impression: Primary Impression: Atrial fibrillation with RVR Additional Impressions: Right lower lobe pneumonia Qualified Codes: J18.9 - Pneumonia, unspecified organism Acute on chronic systolic (congestive) heart failure Disposition: ADMITTED INPATIENT Admit to: Tele Condition: Guarded Critical Care Note Critical Care Time?: Yes Critical care comment: AFib with RVR Authorized and Performed by: Davida Malloy MD Total critical care time: Approximately 116 minutes Due to a high probability of clinically significant, life threatening deterioration, the patient required my highest level of preparedness to intervene emergently and I personally spent this critical care time directly and personally managing the patient. This critical care time included obtaining a history; examining the patient; pulse oximetry; ordering and review of studies; arranging urgent treatment with development of a management plan; evaluation of patient's response to treatment; frequent reassessment; and, discussions with other providers. This critical care time was performed to assess and manage the high probability of imminent, life-threatening deterioration that could result in multi-organ failure. It was exclusive of separately billable procedures and treating other patients and teaching time. Please see my other sections and the rest of the note for further information on patient assessment and treatment. Stability Stability form required: No Heart Score Heart Score: Heart Score Response (Comments) Value History Moderate Suspicious 1 EKG Repolarization Disturb 1 Age 45-64 1 Risk Factors >3 or Hx ASHD 2 Troponin >3 x's Normal limit 2 Total 7 I personally scribed for DVAIDA MALLOY MD ([email or web address]) on 09/02/24 at 21:44. Electronically submitted by Mendel Blair ([email or web address]). DAVIDA MALLOY MD Sep 02, 2024 21:44
[2024-09-02 21:48] LABS: Chloride 102 mmol/L (98-107); Potassium 4.5 mmol/L (3.5-5.1)
[2024-09-02 21:49] LABS: Anion Gap 11 (5-15); Calcium 9.3 mg/dL (8.7-10.4)
[2024-09-02 21:54] LABS: BUN/Creatinine Ratio 29.3 (10.0-20.0)
[2024-09-02 21:55] LABS: Blood Urea Nitrogen 39 mg/dL (9-23); Carbon Dioxide 20 mmol/L (20-31); Glucose 145 mg/dL (74-106); Sodium 133 mmol/L (136-145)
[2024-09-02 22:02] LABS: Lactic Acid w/Reflex 3.3 mmol/L (0.4-2.0)
[2024-09-02] MEDS: DIGOXIN (250MCG/ML) 2 ML AMPULE IV ONE ×2 (22:08→23:27)
--- NOTE | 2024-09-02 22:29 | DVH ---
CHEST RADIOGRAPH Indication: sob Technique: Single frontal view of the chest was obtained Comparison: XY CHEST PORTABLE on DOS: 02/11/24, XY CHEST PORTABLE on DOS: 08/16/23 FINDINGS: Lines and Tubes: None Lungs: Airspace disease right lower lung field with small pleural effusion findings appear worse than prior study of 02/11/2024 Pleura: No effusion. No pneumothorax. Cardiomediastinal contours: Unremarkable Bones: No acute osseous abnormality. IMPRESSION: 1. Right lower lobe airspace disease and small pleural effusion.
[2024-09-02 22:30] VITALS: PULSE 148; RESP 16; O2SAT 96
[2024-09-02] MEDS: FUROSEMIDE 40 MG/4 ML VIAL IV ONE (23:27)
--- NOTE | 2024-09-02 23:40 | DVHHPRES ---
History of Present Illness Resident Creating Document: DONNIE PEDRO RESIDENT History of Present Illness Mr Ozuna is a 59-year-old male with past history of congestive heart failure- LVEF 25%, severely dilated LV, atrial fibrillation on anticoagulation, benign prostatic hyperplasia, multiple right-sided thoracocentesis who presented to the ER with a chief complaint of shortness of breaths for the past week. Patient reports that he ran out of LasHappy Days 1 week back and has been getting his medications from friends. Patient does not have a PCP. Associated symptoms include orthopnea, PND, cough with productive whitish phlegm, nausea and vomiting. Patient also reports shortness of breath with whitish phlegm for the past 6 Echocardiogram 02/2024 showed severely dilated with LVEF 20% Patient last seen in his facility on 02/2024 in which 1.5 L of fluid was removed with thoracocentesis from biliary side PMH: congestive heart failure-LVEF 25%, severely dilated LV, atrial fibrillation on anticoagulation, benign prostatic hyperplasia, multiple right-sided thoracocentesis Social history: quit smoking 1 month ago, previously smoked 1 pack a day for 40 years. Lasted methamphetamine was 1 week back Patient seen and examined at the bedside. Has b/l expiratory wheezing Smoke: Quit ALCOHOL: heavy Drugs: Other Lives: Friends Review of Systems Constitutional: Yes: Weakness Respiratory: Cough, Shortness of breath, SOB with excertion, Wheezing Allergies: Coded Allergies: Amiodarone (Verified Allergy, Unknown, 08/16/23) Metoprolol (Verified Allergy, Unknown, rapid decrease in blood pressure, 02/13/24) Penicillins (Verified Allergy, Unknown, 06/09/23) Exam Vital Signs Vital Signs Date Time Temp Pulse Resp B/P (MAP) Pulse Ox O2 Delivery O2 Flow Rate FiO2 09/02/24 23:27 114/86 09/02/24 23:27 142 09/02/24 21:11 99.0 24 87 99.0 General Appearance: Alert, Oriented X3, Cooperative, No acute distress Respiratory: Other (expiratory wheezing, bilateral crackles. On 6 L NC) Cardiovascular: No murmurs, Other (Irregular and tachycardic) Abdominal: Normal bowel sounds, Other (soft reducible umbilical hernia) Extremities: Other (3+ pitting edema, Left knee is erythematous, warm and has a punctate wound) Labs/Xrays Labs Test 09/02/24 23:15 09/02/24 22:21 09/02/24 21:21 Range/Units Troponin I High Sensitivity 48 </=54 ng/L White Blood Count 11.3 H 4.4-10.8 10^3/uL Red Blood Count 5.51 4.5-5.90 10^6/uL Hemoglobin 14.3 13.5-17.5 g/dL Hematocrit 44.8 41.0-53.0 % Mean Corpuscular Volume 81.2 80.0-100.0 fL Mean Corpuscular Hemoglobin 25.9 L 28.0-32.0 pg Mean Corpuscular Hemoglobin Concent 31.9 L 32.0-36.0 g/dL Red Cell Distribution Width 20.9 H 11.8-14.3 % Platelet Count 367 140-450 10^3/uL Mean Platelet Volume 8.3 6.9-10.8 fL Neutrophils (%) (Auto) 72.1 37.0-80.0 % Lymphocytes (%) (Auto) 11.8 10.0-50.0 % Monocytes (%) (Auto) 14.7 H 0.0-12.0 % Eosinophils (%) (Auto) 0.5 0.0-7.0 % Basophils (%) (Auto) 0.9 0.0-2.0 % Neutrophils # (Auto) 8.1 1.6-8.6 10 ^3/uL Lymphocytes # (Auto) 1.3 0.4-5.4 10 ^3/uL Monocytes # (Auto) 1.7 H 0-1.3 10 ^3/uL Eosinophils # (Auto) 0.1 0-0.8 10 ^3/uL Basophils # (Auto) 0.1 0-0.2 10 ^3/uL Nucleated Red Blood Cells 0.1 % Sodium Level 133 L 136-145 mmol/L Potassium Level 4.5 3.5-5.1 mmol/L Chloride Level 102 98-107 mmol/L Carbon Dioxide Level 20 20-31 mmol/L Anion Gap 11 5-15 Blood Urea Nitrogen 39 H 9-23 mg/dL Creatinine 1.33 H 0.700-1.30 mg/dL Glomerular Filtration Rate Calc 62 >90 mL/min BUN/Creatinine Ratio 29.3 H 10.0-20.0 Serum Glucose 145 H 74-106 mg/dL Calcium Level 9.3 8.7-10.4 mg/dL B-Type Natriuretic Peptide 4229.28 0-100 pg/mL Assessment/Plan Assessment/Plan Acute hypoxic respiratory failure due to Acute on chronic HfrEF exacerbation - last LVEF 25% Sepsis due to Gram Negative Pneumonia Afib with RVR secondary to above ([id number] 2, hasbled 1) Pulmonary Edema Lactic Acidosis R/O L knee cellulitis NSTEMI, type 1 vs 2 R sided pleural effusion CKD Umbilical Hernia - soft reducible Mild Hyponatremia Meth use dependence BPH Last echo 02/2024 shows LVEF 25% and severly dilated LV Last thoracocentesis 02/2024 with 1.5ltr removed from R side Plan: BNP 4200, Trop 50, 48 IV lasix 40mg tid, strict I&O, fluid restriction IV Vancomycin, IV Cefepime and IV azithromycin, nebulized treatments Q6hr Coreg, entresto, spironolactone, and Jiardiance as GDMT Lovenox 1mg/kg bid for anticoagulation Chest U/S shows Small to moderate right pleural effusion with right atelectasis F/U with echocardiogram Follow up with urine studies and pth Follow up with blood culture and sputum culture Tamsulosin 0.4 mg daily F/U with Left knee ultrasound Plan discussed with patient in which all questions have been answered Goals of care discussed with patient for more than 20 minutes, full code status Case discussed with Dr. Miller Plan discussed with: Patient Date of Service: Sep 02, 2024 Billing Provider: JOHN MILLER MD Common Visit Codes: [id number] INP/OBS CARE (HIGH) DONNIE PEDRO RESIDENT Sep 02, 2024 23:40
[2024-09-02] MEDS: AZITHROMYCIN 250 MG TAB PO ONE (23:52)
[2024-09-02] MEDS: VANCOMYCIN 1GM/200ML PM 200 ML IV ONE (23:52)
[2024-09-03] VITALS (20 sets, daily range): BP systolic 97–124; BP diastolic 66–97; PULSE 84–128; RESP 13–23; TEMP 97.3–98.4; O2SAT 77–98
[2024-09-03 00:29] LABS: Urine Bacteria None Seen /hpf (None Seen)
[2024-09-03 00:44] LABS: Urine Blood Negative /uL (Negative); Urine Clarity Clear (Clear); Urine Color Light-Yellow (Yellow); Urine Hyaline Cast FEW /lpf (0 - 2); Urine Protein, UAD Negative (Negative); Urine Specific Gravity 1.009 (1.001-1.035); Urine Squamous Epithelial Cell None Seen /hpf (<5); Urine Urobilinogen Normal (Negative); Urine WBC 1 /HPF (0-3)
--- NOTE | 2024-09-03 02:04 | ECG ---
[facility] Test Date: 2024-09-02 Test Time: 20:53:41 Pat Name: CARMEN BERNAL Department: ED Room: [address] [place] [address] A Gender: M Mail Handler: ROGELIO : 1965 Requested By: DAVIDA MALLOY Order Number: [id number] Reading MD: Shad Washington Measurements Intervals [place] Rate: 156 P: 0 MI: 0 QRS: 122 QRSD: 86 T: 19 QT: 323 QTc: 521 Interpretive Statements Atrial fibrillation Probable right ventricular hypertrophy Prolonged QT interval Electronically Signed On 09-03-2024 17:10:32 PDT by Shad Washington Please click the below link to view image of tracing.
--- NOTE | 2024-09-03 02:56 | DVH ---
Date: 09/03/2024 02:11 AM Clinical history: R sided effusion Images submitted: 2 Technique: Limited sonographic evaluation of the right chest was performed . IMPRESSION: Small to moderate right pleural effusion with right atelectasis.
[2024-09-03 03:01] LABS: Amphetamine Screen, Urine Pos (NEGATIVE); Barbiturate Scree,Urine Neg (NEGATIVE); Benzodiazephine Screen, Urine Neg (NEGATIVE); Cannabinoid Screen, Urine Neg (NEGATIVE); Cocaine Screen, Urine Neg (NEGATIVE); Opiate Scree,Urine Neg (NEGATIVE); Phencyclidine Screen, Urine Neg (NEGATIVE)
[2024-09-03] MEDS ORDERED: MORPHINE SULFATE INJ 2 MG/ml SYRG IV PRN (05:30)
[2024-09-03] MEDS ORDERED: HYDROcodone-ACET 5/325MG TAB PO PRN (05:30)
[2024-09-03] MEDS ORDERED: ACETAMINOPHEN 500 MG TAB or CAP PO PRN (05:30)
[2024-09-03] MEDS: ENOXAPARIN SOD 100 MG/1 ML SYRINGE SC SCH (05:52)
[2024-09-03] MEDS: TAMSULOSIN HYDROCHLORIDE 0.4 MG CAP PO ONE (05:52)
[2024-09-03] MEDS: IPRATROPIUM BROM 0.5 MG/2.5ML INH SOL NEB SCH (06:00)
[2024-09-03] MEDS: LEVALBUTEROL HCL 1.25 MG/3 ML NEB NEB SCH (06:00)
[2024-09-03] MEDS: FUROSEMIDE 40 MG/4 ML VIAL IV SCH (06:21)
--- NOTE | 2024-09-03 06:54 | DVH ---
EXAM: XR Left Knee, 1 or 2 Views CLINICAL INDICATION: joint effusion TECHNIQUE: Frontal and/or lateral views of the left knee. COMPARISON: None FINDINGS: BONES/JOINTS: Unremarkable. No acute fracture. No dislocation. SOFT TISSUES: Soft tissue swelling. OTHER FINDINGS: . . IMPRESSION: No acute fracture.
[2024-09-03 07:10] LABS: Basophils # (auto) 0.1 10 ^3/uL (0-0.2); Eosinophils # (auto) 0.1 10 ^3/uL (0-0.8); Hemoglobin 13.5 g/dL (13.5-17.5); Neutrophils % (auto) 73.5 % (37.0-80.0)
[2024-09-03 07:14] LABS: Basophils % (auto) 0.8 % (0.0-2.0); Eosinophils % (auto) 0.9 % (0.0-7.0); Hematocrit 43.6 % (41.0-53.0); Lymphocytes # (auto) 1.3 10 ^3/uL (0.4-5.4); Lymphocytes % (auto) 10.8 % (10.0-50.0); Mean Corpuscular Hemoglobin 24.9 pg (28.0-32.0); Mean Corpuscular Hgb Conc. 30.9 g/dL (32.0-36.0); Mean Corpuscular Volume 80.6 fL (80.0-100.0); Monocytes # (auto) 1.7 10 ^3/uL (0-1.3); Neutrophils # (auto) 8.8 10 ^3/uL (1.6-8.6); Nucleated Red Blood Cells % 0.1 %; Platelet Count (auto) 350 10^3/uL (140-450); Red Blood Cells 5.41 10^6/uL (4.5-5.90); Red Cell Distribution Width 20.4 % (11.8-14.3)
[2024-09-03 07:25] LABS: INR 1.54 (0.9-1.15); Partial Thromboplastin Time 28.5 SEC (24.5-34.5); Prothrombin Time 15.6 sec (9.3-11.8)
[2024-09-03] MEDS ORDERED: LEVALBUTEROL HCL 1.25 MG/3 ML NEB NEB PRN (07:30)
[2024-09-03] MEDS ORDERED: IPRATROPIUM BROM 0.5 MG/2.5ML INH SOL NEB PRN (07:30)
[2024-09-03 07:32] LABS: Alanine Aminotransferase 26 U/L (7-40); Albumin 3.9 g/dL (3.2-4.8); Anion Gap 8 (5-15); Aspartate Aminotransferase 29 U/L (13-40); BUN/Creatinine Ratio 33.1 (10.0-20.0); Calcium 9.2 mg/dL (8.7-10.4); Carbon Dioxide 23 mmol/L (20-31); Chloride 103 mmol/L (98-107); Potassium 4.2 mmol/L (3.5-5.1); Total Protein 6.4 g/dL (5.7-8.2)
[2024-09-03 07:33] LABS: Alkaline Phosphatase 249 U/L (46-116); Bilirubin, Total 2.5 mg/dL (0.2-1.0); Blood Urea Nitrogen 43 mg/dL (9-23); Glucose 118 mg/dL (74-106); Sodium 134 mmol/L (136-145)
[2024-09-03] MEDS ORDERED: VANCOMYCIN PER PHARMACY 0 MG IV SCH (07:45)
[2024-09-03 07:51] LABS: CRP High Sensitivity 2.25 mg/dL (<1.0)
[2024-09-03] MEDS: CEFEPIME 1GM/ 50ML 50 ML IV ONE (08:25)
--- NOTE | 2024-09-03 08:27 | DVH ---
Exam: US LEFT LOWER EXTREMITY ULTRASOUN Date: 09/03/2024 07:52 AM Clinical History: r/p knee effusion Comparison: None Findings: Targeted sonographic evaluation of the soft tissues of the left knee was obtained utilizing grayscale and color Doppler imaging. Small left knee effusion IMPRESSION: Small left knee effusion END IMPRESSION:
[2024-09-03 08:43] LABS: Erythrocyte Sedimentation Rate 2 mm/hr (0-20)
[2024-09-03 08:57] LABS: Protein, Urine 19.8 mg/dL (1-14)
[2024-09-03 09:00] LABS: Creatinine, Urine 29.31 mg/dL (30.0-125.0); Urine Protein/Creatinine Ratio 0.68
[2024-09-03] MEDS ORDERED: cefTRIAXone 1GM/50ML D5W 50 ML IV SCH (09:00)
[2024-09-03 09:01] LABS: Rapid Influenza A Negative (Negative); Rapid Influenza B Negative (Negative)
[2024-09-03 09:02] LABS: COVID19 ANTIGEN SOFIA FIA NEGATIVE (NEGATIVE)
[2024-09-03] MEDS: VANCOMYCIN 1.25GM/250ML 250 ML IV ONE (09:12)
[2024-09-03] MEDS ORDERED: DIGOXIN 0.125 MG TAB PO SCH (10:00)
--- NOTE | 2024-09-03 10:05 | MEDREC ---
[facility] Intervention Section I [facility] Intervention: Review courses of therapy (DUE TO PROLONG QTc > 500 PLEASE CONSIDER SWITCHING AZITHROMYCIN TO DOXYCYCLINE ) RON BRAN PHARMACIST Sep 03, 2024 10:05
--- NOTE | 2024-09-03 10:45 | DVHINCON2 ---
Date Seen: Sep 03, 2024 Referring Physician JOSE Fagan Reason for Consultation Afib RVR History of Present Illness This is a 59-year-old male patient who presents to the emergency room with chief complaint of worsening shortness of breath for one week. The patient reports he ran out of all of his medications approximately two months ago. He now comes to the emergency room for further evaluation. Cardiology has been consulted at this time for atrial fibrillation with rapid ventricular rate. Initial twelve lead electrocardiogram reveals atrial fibrillation with rapid ventricular rate prolonged QTc interval. The patient denies any chest pain or palpitations at time of assessment. Initial troponin level of 50ng/L with down trend thereafter. Initial BNP level of 4229.28pg/mL. Significant past medical history includes congestive heart failure, atrial fibrillation (prescribed Eliquis), hypertension, hyperlipidemia, history of multiple thoracentesis, tobacco use, substance abuse, and obesity. The patient denies following up with Cardiology in the outpatient setting. Past Medical History Past medical history reviewed. No other significant than mentioned above. Past Surgical History Hernia repair Family History: FH: myocardial infarction G8 FATHER FH: natural G8 MOTHER Family History Family history reviewed. Social History Patient has a 41 pack-year history, quit smoking approximately two months ago Patient admits to drinking vodka shots daily Patient admits to recent methamphetamine use, last time approximately one week ago. Toxicology screen positive for amphetamines Allergies: Coded Allergies: Amiodarone (Verified Allergy, Unknown, 08/16/23) Metoprolol (Verified Allergy, Unknown, rapid decrease in blood pressure, 02/13/24) Penicillins (Verified Allergy, Unknown, 06/09/23) Home Meds Active Scripts Acetaminophen (Acetaminophen) 500 Mg Tab, 500 MG PO QIDP, #30 TAB 0 Refills Prov:DONNELL BRITO 04/15/24 Clindamycin Hcl (Clindamycin Hcl) 300 Mg Cap, 300 MG PO QID for 7 Days, #28 CAP 0 Refills Prov:DONNELL BRITO 04/15/24 Furosemide (Lasix) 40 Mg Tab, 40 MG PO DAILY for 30 Days, #30 TAB Prov:ANTIONE LUA RESIDENT 02/15/24 Carvedilol (COREG) 3.125 Mg Tab, 3.125 MG PO Q12HR for 30 Days, #60 TAB Prov:ANTIONE LUA RESIDENT 02/15/24 Digoxin (Lanoxin) 125 Mcg Tab, 0.125 MG PO DAILY for 30 Days, #30 TAB Prov:ANTIONE LUA RESIDENT 02/15/24 Spironolactone (Aldactone) 25 Mg Tab, 12.5 MG PO DAILY for 30 Days, #15 TAB 6 Refills Prov:JAH AYALA 08/19/23 Sacubitril-Valsartan (Entresto 24-26 mg) 1 Tab Tab, 1 TAB PO BID for 30 Days, #60 TAB 6 Refills Prov:JAH AYALA 08/19/23 Empagliflozin (Jardiance) 10 Mg Tab, 10 MG PO DAILY for 30 Days, #30 TAB 6 Refills Prov:JAH AYALA 08/19/23 Atorvastatin Calcium (ATORVASTATIN CALCIUM) 20 Mg Tab, 10 MG PO HS for 30 Days, #15 TAB 6 Refills Prov:JAH AYALA 08/19/23 Aspirin (Aspirin Low Dose) 81 Mg Tab, 81 MG PO DAILY for 30 Days, #30 TAB 6 Refills Prov:JAH AYALA 08/19/23 Digoxin (Digoxin) 125 Mcg Tab, 1 TAB PO DAILY for 30 Days, #30 TAB 6 Refills Prov:JAH AYALA 08/19/23 Furosemide (Furosemide) 40 Mg Tab, 1 TAB PO DAILY for 30 Days, #30 TAB 6 Refills Prov:JAH AYALA 08/19/23 Apixaban Base (ELIQUIS) 5 Mg Tab, 5 MG PO BID for 30 Days, #60 TAB 6 Refills Prov:JAH AYALA 08/19/23 Home Meds Home medications reviewed. Current Medications Current Medications Medications (Trade) Dose Ordered Sig/Zainab Route PRN Reason Start Time Stop Time Status Last Admin Aspirin (Ecotrin Enteric Coated Tablet) 81 mg DAILY PO 09/03/24 10:00 Atorvastatin Calcium (Lipitor) 10 mg HS PO 09/03/24 22:00 Carvedilol (Coreg Tablet) 3.125 mg Q12HR PO 09/03/24 10:00 Digoxin (Lanoxin Tablet) 0.125 mg DAILY PO 09/03/24 10:00 09/03/24 05:30 DC Ceftriaxone Sodium 50 ml @ 100 mls/hr DAILY@09 IV 09/03/24 09:00 09/03/24 07:34 DC Azithromycin 250 ml @ 125 mls/hr DAILY IV 09/03/24 10:00 Ipratropium [place] (Atrovent Medneb) 0.5 mg Q4HR NEB 09/03/24 06:00 09/03/24 07:25 DC Levalbuterol HCl (Xopenex Medneb) 1.25 mg Q4HR NEB 09/03/24 06:00 09/03/24 07:25 DC Furosemide (Lasix Injection) 40 mg TID IV 09/03/24 06:00 09/03/24 06:21 Acetaminophen (Tylenol Tablet Or Capsule) 500 mg Q4HPRN PRN PO MILD PAIN (1-3 PAIN SCALE) 09/03/24 05:30 Acetaminophen/ Hydrocodone Bitart ([place] 5/325MG Tab) 1 tab Q4HPRN PRN PO MODERATE PAIN (4-6 PAIN SCALE) 09/03/24 05:30 Morphine Sulfate 1 mg Q4HPRN PRN IV SEVERE PAIN (7-10 PAIN SCALE) 09/03/24 05:30 Enoxaparin Sodium (Lovenox) 90 mg Q12HR SC 09/03/24 05:30 09/03/24 05:52 Tamsulosin HCl (Flomax) 0.4 mg QPM PO 09/03/24 18:00 Empaglifozin (Jardiance) 10 mg DAILY PO 09/03/24 10:00 Sacubitril/ Valsartan (Entresto 24-26 Mg tab) 1 tab BID PO 09/03/24 10:00 Spironolactone (Aldactone) 12.5 mg DAILY PO 09/03/24 10:00 Ipratropium [place] (Atrovent Medneb) 0.5 mg Q4HPRN PRN NEB SHORTNESS OF BREATH 09/03/24 07:30 Levalbuterol HCl (Xopenex Medneb) 1.25 mg Q4HPRN PRN NEB SHORTNESS OF BREATH 09/03/24 07:30 Vancomycin HCl 0 ml @ 0 mls/hr UD IV 09/03/24 07:45 Cefepime HCl 50 ml @ 12.5 mls/hr Q8HR IV 09/03/24 14:00 Vancomycin HCl 250 ml @ 200 mls/hr Q24H IV 09/04/24 09:00 Review of Systems Constitutional: No symptom reported Ears, Nose, & Throat: No symptom reported Eyes: No symptom reported Neurological: No symptoms reported Pulmonary/Respiratory: Shortness of breath Cardiovascular: No symptom reported Gastrointestinal: No symptom reported Genitourinary: No symptom reported Musculoskeletal: No symptom reported Skin: No symptom reported Psychiatric: No symptom reported Endocrine: No symptom reported Hematologic/Lymphatic: No symptom reported Vital Signs Vital Signs Date Time Temp Pulse Resp B/P (MAP) Pulse Ox O2 Delivery O2 Flow Rate FiO2 09/03/24 10:01 126 22 109/65 (80) 94 09/03/24 08:09 Room Air* 0 21 21 09/02/24 21:37 98.2 98.2 Physical Exam General Appearance: Cooperative. Well-developed. Well-nourished. No acute distress. Pulmonary/Respiratory: Expiratory wheezes bilaterally Cardiovascular/Chest: Irregular rate and rhythm. Peripheral Pulses: 2+ Radial (R). 2+ Radial (L). 2+ Pedal (R). 2+ Pedal (L) Abdominal Exam: Normal bowel sounds. Ankle Exam: 2+ pitting edema Lower extremities: 2+ pitting edema Neuro/Mental Status: A/OX4, coherent. Thoughts/Psych: Normal thought pattern. Appropriate mood and affect. Good judgment and insight. Appearance: No acute distress. Skin Exam: Redness to bilateral knees and feet. Skin warm and dry Labs/Diagnostic Data Labs Test 09/03/24 06:40 09/03/24 05:55 09/03/24 00:22 09/03/24 00:21 Range/Units White Blood Count 12.0 H 4.4-10.8 10^3/uL Red Blood Count 5.41 4.5-5.90 10^6/uL Hemoglobin 13.5 13.5-17.5 g/dL Hematocrit 43.6 41.0-53.0 % Mean Corpuscular Volume 80.6 80.0-100.0 fL Mean Corpuscular Hemoglobin 24.9 L 28.0-32.0 pg Mean Corpuscular Hemoglobin Concent 30.9 L 32.0-36.0 g/dL Red Cell Distribution Width 20.4 H 11.8-14.3 % Platelet Count 350 140-450 10^3/uL Mean Platelet Volume 8.4 6.9-10.8 fL Neutrophils (%) (Auto) 73.5 37.0-80.0 % Lymphocytes (%) (Auto) 10.8 10.0-50.0 % Monocytes (%) (Auto) 14.0 H 0.0-12.0 % Eosinophils (%) (Auto) 0.9 0.0-7.0 % Basophils (%) (Auto) 0.8 0.0-2.0 % Neutrophils # (Auto) 8.8 H 1.6-8.6 10 ^3/uL Lymphocytes # (Auto) 1.3 0.4-5.4 10 ^3/uL Monocytes # (Auto) 1.7 H 0-1.3 10 ^3/uL Eosinophils # (Auto) 0.1 0-0.8 10 ^3/uL Basophils # (Auto) 0.1 0-0.2 10 ^3/uL Nucleated Red Blood Cells 0.1 % Erythrocyte Sedimentation Rate 2 0-20 mm/hr Prothrombin Time 15.6 H 9.3-11.8 sec Prothrombin Time INR 1.54 H 0.9-1.15 Activated Partial Thromboplast Time 28.5 24.5-34.5 SEC Sodium Level 134 L 136-145 mmol/L Potassium Level 4.2 3.5-5.1 mmol/L Chloride Level 103 98-107 mmol/L Carbon Dioxide Level 23 20-31 mmol/L Anion Gap 8 5-15 Blood Urea Nitrogen 43 H 9-23 mg/dL Creatinine 1.30 0.700-1.30 mg/dL Glomerular Filtration Rate Calc 64 >90 mL/min BUN/Creatinine Ratio 33.1 H 10.0-20.0 Serum Glucose 118 H 74-106 mg/dL Hemoglobin A1c 5.9 H <5.7 % A1C Serum Osmolality 299 H 278-298 mOsm/kg Lactic Acid Level 1.8 0.4-2.0 mmol/L Calcium Level 9.2 8.7-10.4 mg/dL Magnesium Level 2.0 1.6-2.6 mg/dL Total Bilirubin 2.5 H 0.2-1.0 mg/dL Aspartate Amino Transferase (AST) 29 13-40 U/L Alanine Aminotransferase (ALT) 26 7-40 U/L Alkaline Phosphatase 249 H 46-116 U/L C-Reactive Protein High Sensitivity 2.25 H <1.0 mg/dL Total Protein 6.4 5.7-8.2 g/dL Albumin 3.9 3.2-4.8 g/dL Vitamin B12 Level 1346 H 211-911 pg/mL Vitamin D 25-Hydroxy 26.6 L 30.0-100 ng/mL Thyroid Stimulating Hormone (TSH) 2.87 0.55-4.78 uIU/mL Influenza Type A Antigen Negative Negative Influenza Type B Antigen Negative Negative SARS-CoV-2 Antigen (Rapid) Negative NEGATIVE Urine Color Light-yellow Yellow Urine Clarity Clear Clear Urine pH 5.0 5.0-9.0 Urine Specific [place] 1.009 1.001-1.035 Urine Protein Negative Negative Urine Ketones Negative Negative Urine Blood Negative Negative /uL Urine Nitrite Negative Negative Urine Bilirubin Negative Negative Urine Urobilinogen Normal Negative mg/dL Urine Leukocyte Esterase Negative Negative /uL Urine RBC None seen 0 - 3 /hpf Urine Microscopic WBC 1 0-3 /HPF Urine Squamous Epithelial Cells None seen <5 /hpf Urine Bacteria None seen None Seen /hpf Urine Hyaline Casts Few 0 - 2 /lpf Urine Creatinine 29.31 L 30.0-125.0 mg/dL Urine Protein/Creatinine Ratio 0.68 Urine Sodium 95 40-220 mmol/L Urine Glucose Normal Normal mg/dL Urine Total Protein 19.8 H 1-14 mg/dL Urine Opiates Screen Neg NEGATIVE Urine Fentanyl Screen Neg NEGATIVE Urine Barbiturates Screen Neg NEGATIVE Urine Phencyclidine Screen Neg NEGATIVE Urine Amphetamines Screen Pos NEGATIVE Urine Benzodiazepines Screen Neg NEGATIVE Urine Cocaine Screen Neg NEGATIVE Urine Cannabinoids Screen Neg NEGATIVE Troponin I High Sensitivity 48 </=54 ng/L Test 09/02/24 21:21 Range/Units B-Type Natriuretic Peptide 4229.28 0-100 pg/mL Assessment Atrial fibrillation with rapid ventricular rate (Prescribed Eliquis) Acute on chronic decompensated HFrEF, NYHA class III Dilated cardiomyopathy, likely drug-induced Hypertension Hyperlipidemia Moderate tricuspid valve regurgitation Pulmonary hypertension ?Bilateral lower extremity cellulitis Polysubstance use Tobacco use Medical noncompliance Plan/Recommendation We will continue with the following plan/recommendations (Dr. Washington): * Obtain transthoracic echocardiogram to evaluate cardiac function * Transthoracic echocardiogram from 02/12/2024 reveals EF 25%, RVSP 48 mmHg * Initiate GDMT for CHF with stable BP * Aggressive diuresis as tolerated * Strict intake and output, maintain fluid restriction, daily weights * [id number] VASc score: 2 * Therapeutic Lovenox, transition to NOAC when appropriate * Digoxin loading dose, then daily oral Digoxin * Recommend hold antiarrhythmic agent given unknown how long patient has been in atrial fibrillation (*patient allergic to amiodarone as well) * Avoid calcium channel blockers such as Cardizem as this can lead to worsening heart failure * Monitor and replete electrolytes as needed, keep potassium greater than 4 and magnesium greater than 2 * Lipid-lowering agent * Risk factor modifications, counseled * Lifestyle and dietary changes * Cessation of drug and alcohol use * Adherence to prescribed medication Case discussed with Dr. Washington. Thank you for allowing us to care for this patient. Please call with any questions or concerns. Critical care time spent: 44 minutes This medical document was created using an electronic medical record system with voice recognition software and computerized dictation system. Although this document has been carefully reviewed, there might still be some phonetic and typographical errors. Occasional wrong-word or ``sound-alike substitutions may have occurred due to the inherent limitations of voice recognition software. These areas are purely typographical due to imperfections of the software programs and do not reflect any compromise in the patient's medical care. Please read the chart carefully and recognize, using context, where these substitutions have occurred. Plan discussed with: Patient NYHA Physical activity limitations: Class3(Marked) ordinary (activity causes symtoms) Date of Service: Sep 03, 2024 Billing Provider: SANDEEP VALDEZ Cardiology Common Codes: [id number] INP/OBS CARE (High) Cardiology Consultation Codes: [id number] CONSULT <45MIN SANDEEP VALDEZ Sep 03, 2024 10:45
[2024-09-03] MEDS: EMPAGLIFLOZIN 10 MG TAB PO SCH (10:49)
[2024-09-03] MEDS: SACUBITRIL-VALSARTAN 24mg/26mg TAB PO SCH (10:49)
[2024-09-03] MEDS: SPIRONOLACTONE 25 MG TAB PO SCH (10:50)
[2024-09-03] MEDS: ASPirin-EC 81 mg tab PO SCH (10:50)
[2024-09-03] MEDS: CARVEDILOL 3.125 MG TAB PO SCH (10:51)
[2024-09-03] MEDS: AZITHROMYCIN 500MG/ 250ML 250 ML IV SCH (10:51)
[2024-09-03] MEDS: DIGOXIN (250MCG/ML) 2 ML AMPULE IV ONE (11:01)
[2024-09-03] MEDS: NOREPINEPHRINE 8 MG/250ML KIT 250 ML IV SCH ×2 (12:45→16:51)
[2024-09-03] MEDS: NOREPINEPHRINE 8 MG/250ML KIT 250 ML IV ONE (13:01)
--- NOTE | 2024-09-03 14:13 | DVHPNRES ---
Progress Note Date Seen: Sep 03, 2024 Resident Creating Document: RAJANI CLAROS NANI Has the PT tested + for MRSA If YES, has PT been informed?: Yes Medical Necessity Reason Pt with a Central, PICC or Fol: No Subjective Review of Systems Mr Ozuna is a 59-year-old male with past history of congestive heart failure- LVEF 25%, severely dilated LV, atrial fibrillation on anticoagulation, benign prostatic hyperplasia, multiple right-sided thoracocentesis who presented to the ER with a chief complaint of shortness of breaths for the past week. Patient reports that he ran out of [employer] 1 week back and has been getting his medications from friends. Patient does not have a PCP. Associated symptoms include orthopnea, PND, cough with productive whitish phlegm, nausea and vomiting. Patient also reports shortness of breath with whitish phlegm for the past 6 Echocardiogram 02/2024 showed severely dilated with LVEF 20% Patient last seen in his facility on 02/2024 in which 1.5 L of fluid was removed with thoracocentesis from biliary side PMH: congestive heart failure-LVEF 25%, severely dilated LV, atrial fibrillation on anticoagulation, benign prostatic hyperplasia, multiple right-sided thoracocentesis Social history: quit smoking 1 month ago, previously smoked 1 pack a day for 40 years. Lasted methamphetamine was 1 week back Patient seen and examined at the bedside. Patient is still complaining of shortness of breaths. Patient reports: No new complaints, Feels better Changes from previous H/P or p: Changes Objective vital signs Vital Sign Date Time Temp Pulse Resp B/P (MAP) Pulse Ox O2 Delivery O2 Flow Rate FiO2 09/03/24 13:00 84/41 09/03/24 11:51 99 09/03/24 11:30 97.5 14 92 97.5 09/03/24 08:09 Room Air* 0 21 21 Total Intake and Output 09/02/24 09/02/24 09/03/24 15:00 23:00 07:00 Intake Total 50.0 ml Output Total 1800 ml Balance -1750.0 ml medications Current Medications Medications Dose Ordered Sig/Zainab Route Start Time Stop Time Status Last Admin Dose Admin Aspirin 81 mg DAILY PO 09/03/24 10:00 09/03/24 10:50 81 MG Atorvastatin Calcium 10 mg HS PO 09/03/24 22:00 Azithromycin 250 ml @ 125 mls/hr DAILY IV 09/03/24 10:00 09/03/24 10:51 125 MLS/HR Furosemide 40 mg TID IV 09/03/24 06:00 09/03/24 06:21 40 MG Acetaminophen 500 mg Q4HPRN PRN PO 09/03/24 05:30 Acetaminophen/ Hydrocodone Bitart 1 tab Q4HPRN PRN PO 09/03/24 05:30 Morphine Sulfate 1 mg Q4HPRN PRN IV 09/03/24 05:30 Enoxaparin Sodium 90 mg Q12HR SC 09/03/24 05:30 09/03/24 10:51 90 MG Tamsulosin HCl 0.4 mg QPM PO 09/03/24 18:00 Ipratropium [place] 0.5 mg Q4HPRN PRN NEB 09/03/24 07:30 Levalbuterol HCl 1.25 mg Q4HPRN PRN NEB 09/03/24 07:30 Vancomycin HCl 0 ml @ 0 mls/hr UD IV 09/03/24 07:45 Cefepime HCl 50 ml @ 12.5 mls/hr Q8HR IV 09/03/24 14:00 Vancomycin HCl 250 ml @ 200 mls/hr Q24H IV 09/04/24 09:00 Norepinephrine Bitartrate 32 mg/ Sodium Chloride 250 ml @ 0.938 mls/ hr Q24H IV 09/03/24 12:45 Examination General Appearance: Alert, Oriented X3, Cooperative, No acute distress HEENT: Atraumatic, PERRLA, EOMI, Mucous membrane moist/pink Respiratory: Bilateral lower zone mild crackles, with right lower zone decreased breath sounds Cardiovascular: Regular rate, Normal S1, Normal S2, No murmurs, no chest wall tenderness Abdominal: Normal bowel sounds, Soft, No tenderness, No hepatospenomegaly, No masses Extremities: Bilateral grade 2 pedal edema Skin: No rashes, No breakdown, No significant lesion Neuro: Normal gait, Normal speech, Strength at 5/5 X4 ext, Normal tone, Sensation intact, Cranial nerves 3-12 NL, Reflexes 2+ Psych/Mental Status: Mental status NL, Mood NL laboratory and microbiology Laboratory Tests 09/03/24 06:40 Test 09/03/24 06:40 Range/Units Serum Glucose 118 H 74-106 mg/dL Problem List/Assessment/Plan Problem List/Assessment/Plan Acute hypoxic respiratory failure due to Acute on chronic HfrEF exacerbation - last LVEF 25% Acute on chronic systolic heart failure Cardiogenic shock Chronic systolic/dilated heart failure, 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 Sepsis due to pneumonia Pneumonia, likely due to Gram-positive Gram-negative bacteria/viral Afib with RVR secondary to above ([id number] 2, hasbled 1) Pulmonary Edema Lactic Acidosis Possible L knee cellulitis Ruled out NSTEMI Right [id number] sided pleural effusion CKD Umbilical Hernia - soft reducible Mild Hyponatremia BPH Prediabetes Possible primary hyperparathyroidism Current smoker Ruled out cellulitis Possible pulmonary hypertension Moderate tricuspid valve regurgitation Dyslipidemia Plan: Last echo 02/2024 shows LVEF 25% and severly dilated LV Last thoracocentesis 02/2024 with 1.5ltr removed from R side BNP 4200 Ultrasound shows small left knee effusion Cardiology consulted, recommended medical management Empiric antibiotic, vancomycin, cefepime and doxycycline IV laser 40 mg t.i.d. Levophed drip We will GDMT gradually, once BP stabilized Digoxin Continue home meds DIET: Cardiac diet DVT PROPHYLAXIS: Therapeutic dose Lovenox GI PROPHYLAXIS:: Protonix BOWEL REGIMEN: Colace CODE STATUS: Goal of care discussed for more than 18 minutes, full code DISPOSITION: Telemetry Patient's status and plan discussed with the patient. Case discussed with Dr. Lynn. Plan discussed with: Patient (RN) My Orders My Orders Orders - RAJANI CLAROS RESDIENT Procedure Category Date Status Time Cardiac DIET 09/03/24 Transmitted Diet-2gna,Lofat,Lochol Lunch Date of Service: Sep 03, 2024 Billing Provider: BABATUNDE GUILLEN MD Common Visit Codes: [id number] INP/OBS CARE(HIGH) RAJANI CLAROS RESDIENT Sep 03, 2024 14:13 BABATUNDE GUILLEN MD September 06, 2024 20:41
[2024-09-03] MEDS: CEFEPIME 1GM/ 50ML 50 ML IV SCH (14:38)
[2024-09-03] MEDS: NOREPINEPHRINE BITARTRATE 32 MG in SODIUM CHL 0.9% 218 ML IV SCH (16:09)
[2024-09-03] MEDS: TAMSULOSIN HYDROCHLORIDE 0.4 MG CAP PO SCH (18:37)
[2024-09-03] MEDS: ATORVASTATIN 20 MG TAB PO SCH (21:29)
--- NOTE | 2024-09-03 21:41 | DVH ---
Exam: CT CT AB PEL WO CON-NO ORAL OR IV History: PAIN Comparison Study: None Technique: Multidetector spiral CT of the abdomen was performed from lung bases to pubic symphysis. Imaging was performed without IV contrast. Axial, coronal and sagittal multiplanar reformats were ob tained from the axial data set by the technologist. Radiation Dose : 1. Abdomen/Pelvis: CTDIvol 12.1 mGy, DLP 687 mGy*cm. Findings: Evaluation of solid organs is limited due to lack of intravenous contrast use. Lung Bases: Right lower lobe pneumonia. Small to moderate right pleural effusion Liver: The liver is normal in size. No focal lesions. Gallbladder and Biliary Tree: Unremarkable Spleen: Unremarkable Pancreas: The pancreas is grossly normal in appearance. Adrenal Glands: Unremarkable Kidneys: Kidneys are grossly normal without calculi or hydronephrosis. Bladder: Grossly unremarkable for degree of distention. Bowel: The stomach is grossly normal in appearance. Small bowel and colon are normal in caliber and d istribution. The appendix is not visualized; however, no secondary findings of acute appendicitis id entified. Ascites: Trace abdominopelvic ascites Lymphadenopathy: No mesenteric, retroperitoneal or periportal lymphadenopathy. Abdominal Wall and Mesentery: Unremarkable. Vasculature: The visualized abdominal aorta is normal in size and caliber. Evaluation of abdominal a nd pelvic vessels is limited due to lack of intravenous contrast. Pelvic Organs: Unremarkable Musculoskeletal: No aggressive focal bony lesions, acute fractures or dislocation. IMPRESSION: 1. Right lower lobe pneumonia. 2. Small to moderate right pleural effusion. 3. Trace abdominopelvic ascites. Radiation optimization: All CT scans at this facility use at least one of these dose optimization grupo hniques: automated exposure control mA and/or kV adjustment per patient size (includes targeted exam s where dose is matched to clinical indication) or iterative reconstruction.
[2024-09-04] VITALS (11 sets, daily range): BP systolic 92–129; BP diastolic 62–84; PULSE 65–113; RESP 14–18; TEMP 97.5–98.3; O2SAT 93–100
[2024-09-04 05:37] LABS: Basophils # (auto) 0.1 10 ^3/uL (0-0.2); Basophils % (auto) 0.8 % (0.0-2.0); Eosinophils # (auto) 0.2 10 ^3/uL (0-0.8); Eosinophils % (auto) 2.1 % (0.0-7.0); Hemoglobin 13.1 g/dL (13.5-17.5); Lymphocytes # (auto) 1.3 10 ^3/uL (0.4-5.4)
[2024-09-04 05:43] LABS: Hematocrit 40.7 % (41.0-53.0); Lymphocytes % (auto) 12.2 % (10.0-50.0); Mean Corpuscular Hemoglobin 25.8 pg (28.0-32.0); Mean Corpuscular Hgb Conc. 32.1 g/dL (32.0-36.0); Mean Corpuscular Volume 80.2 fL (80.0-100.0); Monocytes # (auto) 1.4 10 ^3/uL (0-1.3); Monocytes % (auto) 13.3 % (0.0-12.0); Neutrophils # (auto) 7.7 10 ^3/uL (1.6-8.6); Neutrophils % (auto) 71.6 % (37.0-80.0); Platelet Count (auto) 298 10^3/uL (140-450); Red Blood Cells 5.07 10^6/uL (4.5-5.90); Red Cell Distribution Width 19.8 % (11.8-14.3); White Blood Cell 10.7 10^3/uL (4.4-10.8)
[2024-09-04 06:02] LABS: Alanine Aminotransferase 21 U/L (7-40); Albumin 3.4 g/dL (3.2-4.8); Anion Gap 7 (5-15); BUN/Creatinine Ratio 29.6 (10.0-20.0); Calcium 8.9 mg/dL (8.7-10.4); Carbon Dioxide 31 mmol/L (20-31); Chloride 100 mmol/L (98-107); Glucose 102 mg/dL (74-106); Potassium 3.5 mmol/L (3.5-5.1); Sodium 138 mmol/L (136-145); Total Protein 5.8 g/dL (5.7-8.2)
[2024-09-04 06:06] LABS: Alkaline Phosphatase 217 U/L (46-116); Bilirubin, Total 2.6 mg/dL (0.2-1.0); Blood Urea Nitrogen 40 mg/dL (9-23)
[2024-09-04 06:11] LABS: Aspartate Aminotransferase 27 U/L (13-40)
[2024-09-04] MEDS: VANCOMYCIN 1.25GM/250ML 250 ML IV SCH (09:56)
--- NOTE | 2024-09-04 12:51 | DVHPNRES ---
Progress Note Date Seen: September 04, 2024 Resident Creating Document: RAJANI CLAROS NANI Has the PT tested + for MRSA If YES, has PT been informed?: Yes Medical Necessity Reason Pt with a Central, PICC or Fol: No Subjective Review of Systems Since the bedside. Patient is still complaining of shortness of breaths. Patient reports: No new complaints, Feels better Changes from previous H/P or p: Changes Objective vital signs Vital Sign Date Time Temp Pulse Resp B/P (MAP) Pulse Ox O2 Delivery O2 Flow Rate FiO2 09/04/24 10:00 96 Nasal Cannula 2.0 09/04/24 09:00 98.3 80 14 112/84 (93) 98.3 09/04/24 08:00 21 Total Intake and Output 09/03/24 09/03/24 09/04/24 15:00 23:00 07:00 Intake Total 550 ml 302.5 ml 549.5 ml Output Total 1650 ml 3440 ml 1890 ml Balance -1100 ml -3137.5 ml -1340.5 ml medications Current Medications Medications Dose Ordered Sig/Zainab Route Start Time Stop Time Status Last Admin Dose Admin Aspirin 81 mg DAILY PO 09/03/24 10:00 09/04/24 09:46 81 MG Atorvastatin Calcium 10 mg HS PO 09/03/24 22:00 09/03/24 21:29 10 MG Azithromycin 250 ml @ 125 mls/hr DAILY IV 09/03/24 10:00 09/04/24 10:12 125 MLS/HR Furosemide 40 mg TID IV 09/03/24 06:00 09/04/24 06:10 40 MG Acetaminophen 500 mg Q4HPRN PRN PO 09/03/24 05:30 Acetaminophen/ Hydrocodone Bitart 1 tab Q4HPRN PRN PO 09/03/24 05:30 Morphine Sulfate 1 mg Q4HPRN PRN IV 09/03/24 05:30 Enoxaparin Sodium 90 mg Q12HR SC 09/03/24 05:30 09/04/24 09:51 90 MG Tamsulosin HCl 0.4 mg QPM PO 09/03/24 18:00 09/03/24 18:37 0.4 MG Ipratropium [place] 0.5 mg Q4HPRN PRN NEB 09/03/24 07:30 Levalbuterol HCl 1.25 mg Q4HPRN PRN NEB 09/03/24 07:30 Vancomycin HCl 0 ml @ 0 mls/hr UD IV 09/03/24 07:45 Cefepime HCl 50 ml @ 12.5 mls/hr Q8HR IV 09/03/24 14:00 09/04/24 06:12 12.5 MLS/HR Vancomycin HCl 250 ml @ 200 mls/hr Q24H IV 09/04/24 09:00 09/04/24 09:56 200 MLS/HR Examination General Appearance: Alert, Oriented X3, Cooperative, No acute distress HEENT: Atraumatic, PERRLA, EOMI, Mucous membrane moist/pink Respiratory: Bilateral lower zone mild crackles, with right lower zone decreased breath sounds Cardiovascular: Regular rate, Normal S1, Normal S2, No murmurs, no chest wall tenderness Abdominal: Normal bowel sounds, Soft, No tenderness, No hepatospenomegaly, No masses Extremities: Bilateral grade 2 pedal edema Skin: No rashes, No breakdown, No significant lesion Neuro: Normal gait, Normal speech, Strength at 5/5 X4 ext, Normal tone, Sensation intact, Cranial nerves 3-12 NL, Reflexes 2+ Psych/Mental Status: Mental status NL, Mood NL laboratory and microbiology Laboratory Tests 09/04/24 04:57 Test 09/04/24 04:57 Range/Units Serum Glucose 102 74-106 mg/dL Microbiology Date/Time Source Procedure Growth Status 09/03/24 08:00 Nose MRSA Screen - Final Complete 09/02/24 23:25 Blood Blood Culture - Preliminary NO GROWTH AFTER 24 HOURS OF INCUBATION. 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 Sepsis due to pneumonia Pneumonia, likely due to Gram-positive Gram-negative bacteria/viral Afib with RVR secondary to above ([id number] 2, hasbled 1) Pulmonary Edema Lactic Acidosis Possible L knee cellulitis Ruled out NSTEMI Right [id number] sided pleural effusion CKD Umbilical Hernia - soft reducible Mild Hyponatremia BPH Prediabetes Possible primary hyperparathyroidism Current smoker Ruled out cellulitis Possible pulmonary hypertension Moderate tricuspid valve regurgitation Dyslipidemia Plan: Last echo 02/2024 shows LVEF 25% and severly dilated LV Last thoracocentesis 02/2024 with 1.5ltr removed from R side BNP 4200 Ultrasound shows small left knee effusion Cardiology consulted, recommended medical management Empiric antibiotic, vancomycin, cefepime and doxycycline Continue IV laser 40 mg t.i.d. Levophed drip We will GDMT gradually, once BP stabilized Digoxin Continue home meds DIET: Cardiac diet DVT PROPHYLAXIS: Therapeutic dose Lovenox GI PROPHYLAXIS:: Protonix BOWEL REGIMEN: Colace CODE STATUS: Goal of care discussed for more than 18 minutes, full code DISPOSITION: Telemetry Patient's status and plan discussed with the patient. Case discussed with Dr. Lynn. Plan discussed with: Patient, Other (RN) My Orders My Orders Orders - RAJANI CLAROS RESDIAELJANDRA Procedure Category Date Status Time Cardiac DIET 09/03/24 Transmitted Diet-2gna,Lofat,Lochol Lunch * Radiologist Consult CONS 09/03/24 Transmitted 16:53 Ct Ab Pel Wo Con-No CT 09/03/24 Resulted Oral Or Iv 21:14 Date of Service: September 04, 2024 Billing Provider: BABATUNDE GUILLEN MD Common Visit Codes: [id number] INP/OBS CARE(HIGH) RAJANI CLAROS RESDIENT September 04, 2024 12:50 BABATUNDE GUILLEN MD September 06, 2024 20:42
[2024-09-04] MEDS: SPIRONOLACTONE 25 MG TAB PO ONE (13:00)
[2024-09-04 13:07] LABS: Anti-Centromere B Antibody <0.2 AI (0.0-0.9); Anti-Jo-1 Antibody <0.2 AI (0.0-0.9); Anti-dsDNA Antibody 2 IU/mL (0-9); Antichromatin Antibody <0.2 AI (0.0-0.9); Antiscleroderma-70 Antibody <0.2 AI (0.0-0.9); RNP Antibody 0.4 AI (0.0-0.9); Sjogren's Anti-SS-A Antibody <0.2 AI (0.0-0.9); Sjogren's Anti-SS-B Antibody <0.2 AI (0.0-0.9); Smith Antibody <0.2 AI (0.0-0.9)
--- NOTE | 2024-09-04 13:17 | DVHSR ---
APPROVED REPORT EXAM: Two-dimensional and M-mode echocardiogram with Doppler and color Doppler. Blood Pressure: 122/88 mmHg INDICATION CHF exacerbation RISK FACTORS Height: 70, Weight: 185 DIMENSIONS LVDd5.7 (3.8-5.7cm)LA (2D)5.0 (1.9-4.0cm)Aortic Root4.5 (2.0-3.7cm) LVDs5.0 (2.5-4.0cm)LA (MM) (1.9-4.0cm)Aortic Cusp Exc2.1 (1.5-2.0cm) EF (%) 25.0 (55-70%)Rt. Atrium6.4 (1.9-4.0cm)Asc. Aorta cm Mitral Valve MitralMitral Stenosis E wave0.86m/sMV Mean GR.mmHg E/A ratio0.02D MVAcm2 Aortic Valve Aortic ValveAortic Stenosis V10.84m/Mac Mean GR.3mmHg V21.19m/Mac Peak GR.6mmHg LVOT Diameter2.3 (1.8-2.4cm)Doppler AVA2.93cm2 Pulmonic Valve V20.79m/s Tricuspid Valve TR Velocity2.65m/s [id number] Other Information Technically limited study due to high heart rate. Patient laying flat on his back during exam. Conclusion Technically good study. Atrial fibrillation. Biatrial enlargement. Aortic root enlargement. Dilated RV outflow tract. RV enlargement. Valves appear to be structurally normal. Left ventricular function is markedly diminished. EF is approximately 20% with severe global hypokin esis especially of the posterolateral wall. Underlying severe global hypokinesis with diminished RV function. Trace mitral insufficiency. Mild tricuspid regurgitation. Small pericardial effusion not hemodynamically significant. No masses or vegetations discernible.
--- NOTE | 2024-09-04 14:14 | DVHPN2 ---
Consult Progress Note Subjective Patient reports: Feels better Other Systems: Patient remains in AFib with controlled rate on residential monitor. Denies any cardiac symptoms at time of assessment Objective vital signs Vital Sign Date Time Temp Pulse Resp B/P (MAP) Pulse Ox O2 Delivery O2 Flow Rate FiO2 09/04/24 10:00 96 Nasal Cannula* 2 28 09/04/24 09:00 98.3 80 14 112/84 (93) 98.3 Total Intake and Output 09/03/24 09/03/24 09/04/24 15:00 23:00 07:00 Intake Total 550 ml 302.5 ml 549.5 ml Output Total 1650 ml 3440 ml 1890 ml Balance -1100 ml -3137.5 ml -1340.5 ml medications Current Medications Medications Dose Ordered Sig/Zainab Route Start Time Stop Time Status Last Admin Dose Admin Aspirin 81 mg DAILY PO 09/03/24 10:00 09/04/24 09:46 81 MG Atorvastatin Calcium 10 mg HS PO 09/03/24 22:00 09/03/24 21:29 10 MG Azithromycin 250 ml @ 125 mls/hr DAILY IV 09/03/24 10:00 09/04/24 10:12 125 MLS/HR Furosemide 40 mg TID IV 09/03/24 06:00 09/04/24 06:10 40 MG Acetaminophen 500 mg Q4HPRN PRN PO 09/03/24 05:30 Acetaminophen/ Hydrocodone Bitart 1 tab Q4HPRN PRN PO 09/03/24 05:30 Morphine Sulfate 1 mg Q4HPRN PRN IV 09/03/24 05:30 Enoxaparin Sodium 90 mg Q12HR SC 09/03/24 05:30 09/04/24 09:51 90 MG Tamsulosin HCl 0.4 mg QPM PO 09/03/24 18:00 09/03/24 18:37 0.4 MG Ipratropium [place] 0.5 mg Q4HPRN PRN NEB 09/03/24 07:30 Levalbuterol HCl 1.25 mg Q4HPRN PRN NEB 09/03/24 07:30 Vancomycin HCl 0 ml @ 0 mls/hr UD IV 09/03/24 07:45 Cefepime HCl 50 ml @ 12.5 mls/hr Q8HR IV 09/03/24 14:00 09/04/24 06:12 12.5 MLS/HR Vancomycin HCl 250 ml @ 200 mls/hr Q24H IV 09/04/24 09:00 09/04/24 09:56 200 MLS/HR Spironolactone 25 mg DAILY PO 09/05/24 10:00 Examination: GENERAL:Normal, LUNGS:Normal, CVS:Normal, NEURO:Normal laboratory and microbiology Laboratory Tests 09/04/24 04:57 Test 09/04/24 04:57 Range/Units Serum Glucose 102 74-106 mg/dL Problem List/Assessment/Plan Problem List/Assessment/Plan Atrial fibrillation with rapid ventricular rate (Prescribed Eliquis) Acute on chronic decompensated HFrEF, NYHA class III Cardiogenic shock Dilated cardiomyopathy, likely drug-induced Hypertension Hyperlipidemia Mild tricuspid valve regurgitation Pulmonary hypertension Polysubstance use Tobacco use Medical noncompliance Plan/Recommendations (Dr. Washington): * Obtain transthoracic echocardiogram reveals an EF of 20% * Initiate GDMT for CHF with stable BP * Aggressive diuresis as tolerated * Strict intake and output, maintain fluid restriction, daily weights * [id number] VASc score: 2, HAS-BLED score: 1 point * Therapeutic Lovenox, transition to NOAC (Eliquis) when appropriate * Daily oral digoxin, monitor digoxin levels * Recommend hold antiarrhythmic agent given unknown how long patient has been in atrial fibrillation (*patient allergic to amiodarone as well) * Avoid calcium channel blockers such as Cardizem as this can lead to worsening heart failure * Monitor and replete electrolytes as needed, keep potassium greater than 4 and magnesium greater than 2 * Lipid-lowering agent * Risk factor modifications, counseled * Lifestyle and dietary changes * Cessation of drug and alcohol use * Adherence to prescribed medication The patient may benefit from ischemic workup in the outpatient setting. The patient is not an ideal candidate at this time given medical noncompliance as well as polysubstance use. The patient was educated regarding the importance of cessation of all substance use. The patient was also educated on medication compliance. The patient will need to follow up with Cardiology in the outpatient setting within 1-2 weeks post discharge. There is no further inpatient cardiac workup indicated at this time. Please reconsult if needed. Thank you for allowing us to care for this patient. Please call with any questions or concerns. This medical document was created using an electronic medical record system with voice recognition software and computerized dictation system. Although this document has been carefully reviewed, there might still be some phonetic and typographical errors. Occasional wrong-word or ``sound-alike substitutions may have occurred due to the inherent limitations of voice recognition software. These areas are purely typographical due to imperfections of the software programs and do not reflect any compromise in the patient's medical care. Please read the chart carefully and recognize, using context, where these substitutions have occurred. Plan discussed with: Patient Date of Service: September 04, 2024 Billing Provider: SANDEEP VALDEZ Common Visit Codes: [id number] INP/OBS CARE(HIGH) SANDEEP VALDEZ September 04, 2024 14:14
[2024-09-04] MEDS: FUROSEMIDE 40 MG/4 ML VIAL IV SCH (18:26)
[2024-09-04] MEDS ORDERED: DOXYCYCLINE 100MG/100ML 100 ML IV ONE (18:30)
[2024-09-04] MEDS: DOXYCYCLINE 100MG/100ML 100 ML IV SCH (19:01)
[2024-09-05] VITALS (11 sets, daily range): BP systolic 93–122; BP diastolic 60–88; PULSE 52–148; RESP 17–18; TEMP 97.6–98.1; O2SAT 92–97
[2024-09-05] MEDS ORDERED: CARVEDILOL 3.125 MG TAB PO ONE (04:00)
[2024-09-05] MEDS: POTASSIUM EFFERVESENT TAB 25 MEQ PO ONE (04:11)
[2024-09-05 07:25] LABS: Basophils # (auto) 0.1 10 ^3/uL (0-0.2); Basophils % (auto) 0.7 % (0.0-2.0); Eosinophils # (auto) 0.2 10 ^3/uL (0-0.8); Eosinophils % (auto) 1.6 % (0.0-7.0); Hematocrit 40.9 % (41.0-53.0); Hemoglobin 13.1 g/dL (13.5-17.5); Lymphocytes # (auto) 1.3 10 ^3/uL (0.4-5.4); Lymphocytes % (auto) 14.1 % (10.0-50.0); Mean Corpuscular Hemoglobin 26.1 pg (28.0-32.0); Mean Corpuscular Hgb Conc. 31.9 g/dL (32.0-36.0); Mean Corpuscular Volume 81.8 fL (80.0-100.0); Monocytes # (auto) 1.4 10 ^3/uL (0-1.3); Neutrophils # (auto) 6.5 10 ^3/uL (1.6-8.6); Neutrophils % (auto) 68.6 % (37.0-80.0); Platelet Count (auto) 272 10^3/uL (140-450); Red Cell Distribution Width 20.7 % (11.8-14.3); White Blood Cell 9.5 10^3/uL (4.4-10.8)
[2024-09-05 07:36] LABS: Alanine Aminotransferase 24 U/L (7-40); Albumin 3.6 g/dL (3.2-4.8); Anion Gap 6 (5-15); Aspartate Aminotransferase 29 U/L (13-40); BUN/Creatinine Ratio 30.4 (10.0-20.0); Calcium 9.3 mg/dL (8.7-10.4); Carbon Dioxide 30 mmol/L (20-31); Chloride 100 mmol/L (98-107); Magnesium 1.9 mg/dL (1.6-2.6); Potassium 4.9 mmol/L (3.5-5.1); Sodium 136 mmol/L (136-145); Total Protein 6.1 g/dL (5.7-8.2)
[2024-09-05 07:39] LABS: Alkaline Phosphatase 240 U/L (46-116); Bilirubin, Total 2.1 mg/dL (0.2-1.0); Blood Urea Nitrogen 41 mg/dL (9-23)
[2024-09-05 07:54] LABS: Glucose 114 mg/dL (74-106)
--- NOTE | 2024-09-05 08:03 | ECG ---
[facility] Test Date: 2024-09-05 Test Time: 03:39:28 Pat Name: CARMEN BERNAL Department: Room: [facility]1T B Gender: M Table Cover Folder: sharyn : 1965 Requested By: NENO QUESADA Order Number: [id number] Reading MD: Shad Washington Measurements Intervals [place] Rate: 86 P: 0 GA: 0 QRS: 95 QRSD: 98 T: -27 QT: 427 QTc: 511 Interpretive Statements Atrial fibrillation Borderline right axis deviation Borderline T abnormalities, diffuse leads Prolonged QT interval Electronically Signed On 09-05-2024 9:09:01 PDT by Shad Washington Please click the below link to view image of tracing.
[2024-09-05] MEDS: SPIRONOLACTONE 25 MG TAB PO SCH (09:31)
[2024-09-05] MEDS: DIGOXIN 0.125 MG TAB PO ONE (09:31)
[2024-09-05] MEDS ORDERED: CARVEDILOL 3.125 MG TAB PO SCH (10:00)
--- NOTE | 2024-09-05 10:47 | DVH ---
US CHEST ULTRASOUND, HISTORY: Pleural effusion COMPARISON(S): None TECHNICAL DATA: Transverse and longitudinal images are obtained of the chest. FINDING: IMPRESSION(S): There is a moderate right pleural effusion.
--- NOTE | 2024-09-05 13:52 | DVH ---
US THORACENTESIS, HISTORY: RT PLEURAL EFFUSION PROCEDURE: Informed consent was obtained. The patient was seated on the bed. A limited localization u ltrasound of the right thorax was obtained, and the optimal approach was marked on the skin. The area was prepped with chlorhexidine which was allowed to dry and draped in the usual sterile fashion. Misael e out was performed. The skin and the soft tissues were infiltrated with 1% lidocaine. A 5.5 [place] c entesis needle catheter was advanced into right pleural space. Following aspiration of fluid, the cat heter was advanced and the needle removed. About 1500 cc of fluid was drained. Specimen/s was/were se nt for appropriate cultures/cytology/cultures and cytology. No immediate complication was identified. FINDINGS: Moderate right pleural effusion. Aspirated fluid is clear and serous. IMPRESSION: right thoracentesis with 1.5L removed.
--- NOTE | 2024-09-05 14:01 | DVH ---
CHEST RADIOGRAPH Indication: POST THORACENTESIS Technique: Single frontal view of the chest was obtained Comparison: XY CHEST PORTABLE on DOS: 09/02/24, XY CHEST PORTABLE on DOS: 02/11/24, XY CHEST PORTABLE o n DOS: 08/16/23 FINDINGS: Lines and Tubes: None Lungs: Improved aeration of the right mid and lower lung zone with right basilar opacity. No pneumothorax. Cardiomediastinal contours: Mild cardiomegaly. Bones: No acute osseous abnormality. IMPRESSION: Improved aeration of the right mid and lower lung zone with right basilar opacity which may represent atelectasis /pneumonia. Underlying trace effusion can not excluded. No pneumothorax.
[2024-09-05 14:12] LABS: Band Neutrophils % (manual) 0; Basophils % (manual) 0 (0.0-2.0); Blast Cells 0; Metamyelocytes % 0; Myelocytes % 0; Promyelocytes % 0; Reactive Lymphocytes 0
[2024-09-05 14:49] LABS: Body Fluid Red Blood Cells 270 CUMM (0-2000); Body Fluid White Blood Cells 280 CUMM (0-200)
[2024-09-05 15:21] LABS: Eosinophils % (manual) 2 (0-7); Lymphocytes % (manual) 21 (10.0-50.0); Monocytes % (manual) 15 (0-12)
[2024-09-05 15:22] LABS: Anisocytosis Slight; Ovalocytes FEW
[2024-09-05 15:23] LABS: Platelet Estimate Adequate
[2024-09-05 15:45] LABS: Platelet Count (auto) 272 10^3/uL (140-450)
--- NOTE | 2024-09-05 16:53 | DVHPNRES ---
Progress Note Date Seen: September 05, 2024 Resident Creating Document: RAJANI CLAROS NANI Has the PT tested + for MRSA If YES, has PT been informed?: Yes Medical Necessity Reason Pt with a Central, PICC or Fol: No Subjective Review of Systems Patient seen and examined at the bedside. Patient is still complained of shortness of breaths. Patient reports: No new complaints, Feels better Changes from previous H/P or p: Changes Objective vital signs Vital Sign Date Time Temp Pulse Resp B/P (MAP) Pulse Ox O2 Delivery O2 Flow Rate FiO2 09/05/24 13:00 98.1 62 18 93/72 (79) 96 98.1 09/05/24 10:00 Room Air* 0 21 Total Intake and Output 09/04/24 09/04/24 09/05/24 15:00 23:00 07:00 Intake Total 740 ml 1210 ml 500 ml Output Total 2000 ml 2100 ml Balance 740 ml -790 ml -1600 ml medications Current Medications Medications Dose Ordered Sig/Zainab Route Start Time Stop Time Status Last Admin Dose Admin Aspirin 81 mg DAILY PO 09/03/24 10:00 09/05/24 09:30 81 MG Atorvastatin Calcium 10 mg HS PO 09/03/24 22:00 09/04/24 22:02 10 MG Acetaminophen 500 mg Q4HPRN PRN PO 09/03/24 05:30 Acetaminophen/ Hydrocodone Bitart 1 tab Q4HPRN PRN PO 09/03/24 05:30 Morphine Sulfate 1 mg Q4HPRN PRN IV 09/03/24 05:30 Enoxaparin Sodium 90 mg Q12HR SC 09/03/24 05:30 09/05/24 09:30 90 MG Tamsulosin HCl 0.4 mg QPM PO 09/03/24 18:00 09/04/24 18:24 0.4 MG Vancomycin HCl 0 ml @ 0 mls/hr UD IV 09/03/24 07:45 Cefepime HCl 50 ml @ 12.5 mls/hr Q8HR IV 09/03/24 14:00 09/05/24 07:18 12.5 MLS/HR Vancomycin HCl 250 ml @ 200 mls/hr Q24H IV 09/04/24 09:00 09/05/24 09:26 200 MLS/HR Spironolactone 25 mg DAILY PO 09/05/24 10:00 09/05/24 09:31 25 MG Furosemide 40 mg BIDD IV 09/04/24 18:00 09/05/24 07:14 40 MG Doxycycline Hyclate 100 ml @ 50 mls/hr Q12H IV 09/04/24 18:30 09/05/24 07:21 50 MLS/HR Digoxin 0.125 mg DAILY PO 09/06/24 10:00 Examination General Appearance: Alert, Oriented X3, Cooperative, No acute distress HEENT: Atraumatic, PERRLA, EOMI, Mucous membrane moist/pink Respiratory: Bilateral lower zone mild crackles, with right lower zone decreased breath sounds Cardiovascular: Regular rate, Normal S1, Normal S2, No murmurs, no chest wall tenderness Abdominal: Normal bowel sounds, Soft, No tenderness, No hepatospenomegaly, No masses Extremities: Bilateral grade 2 pedal edema Skin: No rashes, No breakdown, No significant lesion Neuro: Normal gait, Normal speech, Strength at 5/5 X4 ext, Normal tone, Sensation intact, Cranial nerves 3-12 NL, Reflexes 2+ Psych/Mental Status: Mental status NL, Mood NL laboratory and microbiology Laboratory Tests 09/05/24 06:46 Test 09/05/24 06:46 Range/Units Serum Glucose 114 H 74-106 mg/dL Microbiology Date/Time Source Procedure Growth Status 09/03/24 08:00 Nose MRSA Screen - Final Complete 09/02/24 23:25 Blood Blood Culture - Preliminary NO GROWTH AFTER 48 HOURS OF INCUBATION. 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 Sepsis due to pneumonia Pneumonia, likely due to Gram-positive Gram-negative bacteria/viral Afib with RVR secondary to above ([id number] 2, hasbled 1) Pulmonary Edema Lactic Acidosis Possible L knee cellulitis Ruled out NSTEMI Right [id number] sided pleural effusion CKD Umbilical Hernia - soft reducible Mild Hyponatremia BPH Prediabetes Possible primary hyperparathyroidism Current smoker Ruled out cellulitis Possible pulmonary hypertension Moderate tricuspid valve regurgitation Dyslipidemia Plan: Last echo 02/2024 shows LVEF 25% and severly dilated LV Last thoracocentesis 02/2024 with 1.5ltr removed from R side BNP 4200 Ultrasound shows small left knee effusion Cardiology consulted, recommended medical management Empiric antibiotic, vancomycin, cefepime and doxycycline Continue IV laser 40 mg t.i.d. We will GDMT gradually, once BP stabilized Digoxin Continue home meds DIET: Cardiac diet DVT PROPHYLAXIS: Therapeutic dose Lovenox GI PROPHYLAXIS:: Protonix BOWEL REGIMEN: Colace CODE STATUS: Goal of care discussed for more than 18 minutes, full code DISPOSITION: Telemetry Patient's status and plan discussed with the patient. Case discussed with Dr. Ayala. Plan discussed with: Patient, Other (RN) My Orders My Orders Orders - RAJANI CLAROS RESDIALEJANDRA Procedure Category Date Status Time Doxycycline PHA 09/04/24 In Process 100mg/100ml 18:30 Digoxin Tablet PHA 09/06/24 In Process (Lanoxin Tablet) 10:00 Chest Ultrasound US 09/05/24 Resulted 10:03 * Radiologist Consult CONS 09/05/24 Transmitted 12:52 Thoracentesis US 09/05/24 Resulted 13:14 Date of Service: September 05, 2024 Billing Provider: JAH AYALA DO Common Visit Codes: [id number] INP/OBS CARE(HIGH) RAJANI CLAROS RESDIALEJANDRA September 05, 2024 16:52 JAH AYALA DO September 06, 2024 10:41
[2024-09-06 01:00] VITALS: BP 92/54; PULSE 68; RESP 18; TEMP 97.9; O2SAT 96
[2024-09-06 05:00] VITALS: BP 104/80; PULSE 111; RESP 18; TEMP 97.7; O2SAT 96
[2024-09-06] MEDS: DIGOXIN 0.125 MG TAB PO SCH (07:48)
[2024-09-06 08:00] VITALS: PULSE 121
[2024-09-06 09:00] VITALS: BP 121/90; PULSE 56; RESP 16; TEMP 97.8; O2SAT 98
[2024-09-06 10:00] VITALS: O2SAT 96
[2024-09-06] MEDS ORDERED: DIGO0.12 PO (10:33)
--- NOTE | 2024-09-06 11:06 | DVHDSRES ---
Discharge Summary Date of Admission Resident Creating Document: RAJANI CLAROS RESDIENT Sep 02, 2024 at 23:39 Date of Discharge: September 06, 2024 Admitting Diagnosis Shortness of breaths Labs/Diagnostic Data: Laboratory Results Test 09/05/24 13:50 09/05/24 06:46 09/03/24 06:40 09/03/24 05:55 Body Fluid Source Pleural fluid Body Fluid pH 9.0 Body Fluid WBC (Manual) 280 CUMM (0-200) Body Fluid RBC (Manual) 270 CUMM (0-2000) Body Fluid Mononuclear Cells 46 % Body Fluid Polymorphonuclear Cells 54 % (0-25) White Blood Count 9.5 10^3/uL (4.4-10.8) Red Blood Count 5.00 10^6/uL (4.5-5.90) Hemoglobin 13.1 g/dL (13.5-17.5) Hematocrit 40.9 % (41.0-53.0) Mean Corpuscular Volume 81.8 fL (80.0-100.0) Mean Corpuscular Hemoglobin 26.1 pg (28.0-32.0) Mean Corpuscular Hemoglobin Concent 31.9 g/dL (32.0-36.0) Red Cell Distribution Width 20.7 % (11.8-14.3) Platelet Count 272 10^3/uL (140-450) Mean Platelet Volume 8.3 fL (6.9-10.8) Neutrophils (%) (Auto) 68.6 % (37.0-80.0) Lymphocytes (%) (Auto) 14.1 % (10.0-50.0) Monocytes (%) (Auto) 15.0 % (0.0-12.0) Eosinophils (%) (Auto) 1.6 % (0.0-7.0) Basophils (%) (Auto) 0.7 % (0.0-2.0) Neutrophils # (Auto) 6.5 10 ^3/uL (1.6-8.6) Lymphocytes # (Auto) 1.3 10 ^3/uL (0.4-5.4) Monocytes # (Auto) 1.4 10 ^3/uL (0-1.3) Eosinophils # (Auto) 0.2 10 ^3/uL (0-0.8) Basophils # (Auto) 0.1 10 ^3/uL (0-0.2) Differential Total Cells Counted 100.0 (100) Neutrophils % (Manual) 62 (37.0-80.0) Band Neutrophils % (Manual) 0 Lymphocytes % (Manual) 21 (10.0-50.0) Monocytes % (Manual) 15 (0-12) Eosinophils % (Manual) 2 (0-7) Basophils % (Manual) 0 (0.0-2.0) Metamyelocytes % (manual) 0 Myelocytes % (Manual) 0 Promyelocytes % (Manual) 0 Blast Cells % (Manual) 0 Nucleated Red Blood Cells 0.0 % Reactive Lymphocytes 0 Platelet Estimate Adequate Anisocytosis (manual) Slight Ovalocytes Few Sodium Level 136 mmol/L (136-145) Potassium Level 4.9 mmol/L (3.5-5.1) Chloride Level 100 mmol/L (98-107) Carbon Dioxide Level 30 mmol/L (20-31) Anion Gap 6 (5-15) Blood Urea Nitrogen 41 mg/dL (9-23) Creatinine 1.35 mg/dL (0.700-1.30) Glomerular Filtration Rate Calc 61 mL/min (>90) BUN/Creatinine Ratio 30.4 (10.0-20.0) Serum Glucose 114 mg/dL (74-106) Calcium Level 9.3 mg/dL (8.7-10.4) Magnesium Level 1.9 mg/dL (1.6-2.6) Total Bilirubin 2.1 mg/dL (0.2-1.0) Aspartate Amino Transferase (AST) 29 U/L (13-40) Alanine Aminotransferase (ALT) 24 U/L (7-40) Alkaline Phosphatase 240 U/L (46-116) Total Protein 6.1 g/dL (5.7-8.2) Albumin 3.6 g/dL (3.2-4.8) Digoxin Level 0.33 ng/mL (0.8-2) Erythrocyte Sedimentation Rate 2 mm/hr (0-20) Prothrombin Time 15.6 sec (9.3-11.8) Prothrombin Time INR 1.54 (0.9-1.15) Activated Partial Thromboplast Time 28.5 SEC (24.5-34.5) Hemoglobin A1c 5.9 % A1C (<5.7) Serum Osmolality 299 mOsm/kg (278-298) Lactic Acid Level 1.8 mmol/L (0.4-2.0) C-Reactive Protein High Sensitivity 2.25 mg/dL (<1.0) Vitamin B12 Level 1346 pg/mL (211-911) Vitamin D 25-Hydroxy 26.6 ng/mL (30.0-100) Thyroid Stimulating Hormone (TSH) 2.87 uIU/mL (0.55-4.78) Parathyroid Hormone (Intact) 146.7 pg/mL (18.4-80.1) Anti-Nuclear Antibody Comment Comment (.) KAREN-1 Antibody <0.2 AI (0.0-0.9) SS-A/Ro Antibody <0.2 AI (0.0-0.9) SS-B/La Antibody <0.2 AI (0.0-0.9) Sm Antibody <0.2 AI (0.0-0.9) CLOCK REPAIR TECHNICIAN Antibody 0.4 AI (0.0-0.9) Scl-70 (Scleroderma) Antibody <0.2 AI (0.0-0.9) Anti-Double Strand DNA Antibody 2 IU/mL (0-9) Chromatin Antibody <0.2 AI (0.0-0.9) Centromere B Antibody <0.2 AI (0.0-0.9) Influenza Type A Antigen Negative (Negative) Influenza Type B Antigen Negative (Negative) SARS-CoV-2 Antigen (Rapid) Negative (NEGATIVE) Test 09/03/24 00:22 09/03/24 00:21 09/02/24 21:21 Urine Color Light-yellow (Yellow) Urine Clarity Clear (Clear) Urine pH 5.0 (5.0-9.0) Urine Specific [place] 1.009 (1.001-1.035) Urine Protein Negative (Negative) Urine Ketones Negative (Negative) Urine Blood Negative /uL (Negative) Urine Nitrite Negative (Negative) Urine Bilirubin Negative (Negative) Urine Urobilinogen Normal mg/dL (Negative) Urine Leukocyte Esterase Negative /uL (Negative) Urine RBC None seen /hpf (0 - 3) Urine Microscopic WBC 1 /HPF (0-3) Urine Squamous Epithelial Cells None seen /hpf (<5) Urine Bacteria None seen /hpf (None Seen) Urine Hyaline Casts Few /lpf (0 - 2) Urine Osmolality 388 mOsm/kg Urine Creatinine 29.31 mg/dL (30.0-125.0) Urine Protein/Creatinine Ratio 0.68 Urine Sodium 95 mmol/L (40-220) Urine Glucose Normal mg/dL (Normal) Urine Total Protein 19.8 mg/dL (1-14) Urine Opiates Screen Neg (NEGATIVE) Urine Fentanyl Screen Neg (NEGATIVE) Urine Barbiturates Screen Neg (NEGATIVE) Urine Phencyclidine Screen Neg (NEGATIVE) Urine Amphetamines Screen Pos (NEGATIVE) Urine Benzodiazepines Screen Neg (NEGATIVE) Urine Cocaine Screen Neg (NEGATIVE) Urine Cannabinoids Screen Neg (NEGATIVE) Troponin I High Sensitivity 48 ng/L (</=54) B-Type Natriuretic Peptide 4229.28 pg/mL (0-100) Other Laboratory Tests 09/05/24 06:46 Brief Hx & Hospital Course: Mr Ozuna is a 59-year-old male with past history of congestive heart failure- LVEF 25%, severely dilated LV, atrial fibrillation on anticoagulation, benign prostatic hyperplasia, multiple right-sided thoracocentesis who presented to the ER with a chief complaint of shortness of breaths for the past week. Patient reports that he ran out of Lasix 1 week back and has been getting his medications from friends. Patient does not have a PCP. Associated symptoms include orthopnea, PND, cough with productive whitish phlegm, nausea and vomiting. Patient also reports shortness of breath with whitish phlegm for the past 6 Echocardiogram 02/2024 showed severely dilated with LVEF 20% Patient last seen in his facility on 02/2024 in which 1.5 L of fluid was removed with thoracocentesis from biliary side PMH: congestive heart failure-LVEF 25%, severely dilated LV, atrial fibrillation on anticoagulation, benign prostatic hyperplasia, multiple right-sided thoracocentesis Social history: quit smoking 1 month ago, previously smoked 1 pack a day for 40 years. Lasted methamphetamine was 1 week back Hospital course: Patient was admitted on the line of acute on chronic systolic heart failure leading to respiratory failure and volume overload. The patient was started on IV diuretic Lasix 40 mg b.i.d.. EKGs showed AFib with RVR. Cardiology consulted and recommended IV diuretic and digoxin. On 2nd day, the patient underwent cardiogenic shock, and the patient was started on Levophed for 1 day, subsequently the patient gradually improved. CT scan was performed, showed consolidation and right-sided [id number] pleural effusion. The patient was given empiric antibiotic of vancomycin, cefepime and doxycycline, and feeling management. On 3rd day of admission, chest ultrasound repeated but still showed moderate pleural effusion, consulted IR and performed thoracentesis, took out 1.5 L, still pathology reports pending and will follow up on outpatient basis. During hospital admission, the patient had recurrent episodes of nonsustained ventricular tachycardia, considering his EF and narrow based QRS complex the patient was not a good candidate for ICD or ENGRAVER MACHINE at the moment. The patient needs optimization of the medicine for at least 3-6 months to be considered for possible ICD. On 09/06/24, the patient was feeling better since admission. Discharge plan discussed with the patient the patient discharged home. Discharge plan: Follow up with the PCP within 1 week of the discharge. Follow up with the discharge Clinic within 1 week of the discharge. Follow up with the Cardiology on outpatient basis. Tablet digoxin 0.125 mg daily Follow up with the digoxin level within 1 week of the discharge. Tablet Augmentin for 5 days Tablet doxycycline for 5 days Continue home meds Operations or Procedures [place] [address] Ph: [phone] DIAGNOSTIC IMAGING Diagnostic Imaging Report : [id number] Signed PATIENT: CARMEN OZUANACCT: [id number] UNIT: [id number] : 1965 LOC: [facility] ROOM / BED: [address] [place] [address] AGE / SEX: 59 / M ADM STATUS: ADM IN SERVICE 0522 ORDERING PHYSICIAN: DONNIE PEDRO PROCEDURE(s): ECIDC - ECHO 2D MODE CARDIAC DOP REASON: chf exacerbation ORDER NUMBER(s): [id number], ACCESSION NUMBER(s): [id number] APPROVED REPORT EXAM: Two-dimensional and M-mode echocardiogram with Doppler and color Doppler. Blood Pressure: 122/88 mmHg INDICATION CHF exacerbation RISK FACTORS Height: 70, Weight: 185 DIMENSIONS LVDd 5.7 (3.8-5.7cm) LA (2D) 5.0 (1.9-4.0cm) Aortic Root 4.5 (2.0- 3.7cm) LVDs 5.0 (2.5-4.0cm) LA (MM) (1.9-4.0cm) Aortic Cusp Exc 2.1 (1.5- 2.0cm) EF (%) 25.0 (55-70%) Rt. Atrium 6.4 (1.9-4.0cm) Asc. Aorta cm Mitral Valve Mitral Mitral Stenosis E wave 0.86m/s MV Mean GR. mmHg E/A ratio 0.0 2D MVA cm2 Aortic Valve Aortic Valve Aortic Stenosis V1 0.84m/s AO Mean GR. 3mmHg V2 1.19m/s AO Peak GR. 6mmHg LVOT Diameter 2.3 (1.8-2.4cm) Doppler ALLEN 2.93cm2 Pulmonic Valve V2 0.79m/s Tricuspid Valve TR Velocity 2.65m/s RVSP 45mmHg Other Information Technically limited study due to high heart rate. Patient laying flat on his back during exam. Conclusion Technically good study. Atrial fibrillation. Biatrial enlargement. Aortic root enlargement. Dilated RV outflow tract. RV enlargement. Valves appear to be structurally normal. Left ventricular function is markedly diminished. EF is approximately 20% with severe global hypokinesis especially of the posterolateral wall. Underlying severe global hypokinesis with diminished RV function. Trace mitral insufficiency. Mild tricuspid regurgitation. Small pericardial effusion not hemodynamically significant. No masses or vegetations discernible. SIGNED BY: NBA SALGUERO Sr., MD SIGNED DATE/TIME: 09/04/24 0264 CC: Condition at Discharge: Fair Final Diagnosis/Problems List Acute hypoxic respiratory failure due to Acute on chronic HfrEF exacerbation - last LVEF 25% Acute on chronic systolic heart failure Cardiogenic shock, given Levophed drip Chronic systolic/dilated heart failure, 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 Sepsis due to pneumonia Pneumonia, likely due to Gram-positive Gram-negative bacteria/viral Afib with RVR secondary to above ([id number] 2, hasbled 1) Pulmonary Edema Lactic Acidosis Possible L knee cellulitis Ruled out NSTEMI Right nfco-[id number] sided pleural effusion CKD Umbilical Hernia - soft reducible Mild Hyponatremia BPH Prediabetes Possible primary hyperparathyroidism Current smoker Ruled out cellulitis Possible pulmonary hypertension Moderate tricuspid valve regurgitation Dyslipidemia Hypertension Methamphetamine use disorder Current smoker, nicotine dependence Nonadherence with the medicine Discharge Disposition: Home Discharge Instruct/Medications Diet: Cardiac 2g Na,low cholest Activity: No Restrictions, As Tolerated Follow Up/Referral: With the PCP within 1 week of the discharge. Follow up with the Cardiology on outpatient basis. Follow up the digoxin level within 1 week after discharge with the PCP. Medications: Tablet digoxin 0.125 mg daily Continue home meds Discharge Statement: "Patient was advised to return to the ER or call 911 if any headaches, dizziness, shortness of breath, chest pain, abdominal pain, bleeding, fevers, or worsening of medical condition. Patient was counseled about treatment plan, medications, possible side effects, patientverbalized understanding. All questions were answered to the best of my ability. This discharge took greater then 30 minutes in planning, reviewing documentation, counseling the patient, and discussing with other team members." ASSESSMENT ASSESSMENT Assessment Heart failure Pneumonia Date of Service: September 06, 2024 Billing Provider: JAH AYALA DO Common Visit Codes: 12492-XPR/OBS DISCH DAY >30min RAJANI CLAROS RESDIENT September 06, 2024 11:06 JAH AYALA DO September 08, 2024 20:28
[2024-09-06] MEDS ORDERED: AUG875T PO (11:09)
[2024-09-06] MEDS ORDERED: DOXY-346 PO (11:09)
--- NOTE | 2024-09-06 11:23 | DVHINCON2 ---
Date of service: September 05, 2024 Referring Physician Acute kidney injury Reason for Consultation Jah Ayala MD History of Present Illness Gilbert Ozuna is a 59-year-old Male with Past Medical History pertinent for Congestive heart failure-LVEF 25%, Severely dilated LV, Atrial fibrillation on anticoagulation, Benign prostatic hyperplasia and Multiple right-sided thoracocentesis who presented to the hospital with a chief complaint of shortness of breaths for the past week. Patient reports running out of his Lasix 1 week prior and has been getting his medications from friends. Not established with a PCP. Patient was admitted for further evaluation of acute on chronic systolic heart failure leading to respiratory failure and volume overload. EKGs showed AFib with RVR. Patient underwent cardiogenic shock on day two of admission and received Levophed for [address] scan reported consolidation and right-sided [id number] pleural effusion. S/p thoracentesis with IR, 1.5 L removed. Patient has continued empiric antibiotics with vancomycin, cefepime and doxycycline. Diuresing with IV Lasix 40 mg twice daily. Patient currently reports feeling better. Continues to endorse shortness of breath. Labs this morning are remarkable for Creatinine 1.35 with BUN of 41. K is wnl. Allergies: Coded Allergies: Amiodarone (Verified Allergy, Unknown, 08/16/23) Metoprolol (Verified Allergy, Unknown, rapid decrease in blood pressure, 02/13/24) Penicillins (Verified Allergy, Unknown, 06/09/23) Home Meds Active Scripts Doxycycline (Monohydrate) (Doxycycline) 100 Mg Tab, 100 MG PO BID for 5 Days, #10 TAB Prov:RAJANI CLAROS RESDIENT 09/06/24 Amoxicillin & Pot Clavulanate (AUGMENTIN TABLET) 875 Mg Tb, 875 MG PO BID for 5 Days, #10 TAB Prov:KARRI CLAROSWAD RESDIENT 09/06/24 Digoxin (Digoxin) 125 Mcg Tab, 125 MCG PO DAILY for 20 Days, #20 TAB Prov:NISHANT CLAROSD RESDIENT 09/06/24 Acetaminophen (Acetaminophen) 500 Mg Tab, 500 MG PO QIDP, #30 TAB 0 Refills Prov:DONNELL BRITO 04/15/24 Clindamycin Hcl (Clindamycin Hcl) 300 Mg Cap, 300 MG PO QID for 7 Days, #28 CAP 0 Refills Prov:DONNELL BRITO 04/15/24 Furosemide (Lasix) 40 Mg Tab, 40 MG PO DAILY for 30 Days, #30 TAB Prov:[facility] 02/15/24 Carvedilol (COREG) 3.125 Mg Tab, 3.125 MG PO Q12HR for 30 Days, #60 TAB [facility] 02/15/24 Digoxin (Lanoxin) 125 Mcg Tab, 0.125 MG PO DAILY for 30 Days, #30 TAB Prov[facility] 02/15/24 Spironolactone (Aldactone) 25 Mg Tab, 12.5 MG PO DAILY for 30 Days, #15 TAB 6 Refills Prov:JAH AYALA [facility] 08/19/23 Sacubitril-Valsartan (Entresto 24-26 mg) 1 Tab Tab, 1 TAB PO BID for 30 Days, #60 TAB 6 Refills Prov:AYALAJAH Quinn [facility] 08/19/23 Empagliflozin (Jardiance) 10 Mg Tab, 10 MG PO DAILY for 30 Days, #30 TAB 6 Refills Prov:AYALAJAH Quinn [facility] 08/19/23 Atorvastatin Calcium (ATORVASTATIN CALCIUM) 20 Mg Tab, 10 MG PO HS for 30 Days, #15 TAB 6 Refills Prov:JAH AYALA [facility] 08/19/23 Aspirin (Aspirin Low Dose) 81 Mg Tab, 81 MG PO DAILY for 30 Days, #30 TAB 6 Refills Prov:AYALAJAH Quinn [facility] 08/19/23 Digoxin (Digoxin) 125 Mcg Tab, 1 TAB PO DAILY for 30 Days, #30 TAB 6 Refills Prov:AYALAJAH Quinn [facility] 08/19/23 Furosemide (Furosemide) 40 Mg Tab, 1 TAB PO DAILY for 30 Days, #30 TAB 6 Refills Prov:JAH AYALA [facility] 08/19/23 Apixaban Base (ELIQUIS) 5 Mg Tab, 5 MG PO BID for 30 Days, #60 TAB 6 Refills Prov:AYALAJAH Quinn [facility] 08/19/23 Current Medications Current Medications Medications (Trade) Dose Ordered Sig/Zainab Route PRN Reason Start Time Stop Time Status Last Admin Digoxin (Lanoxin Tablet) 0.125 mg DAILY PO 09/06/24 10:00 09/06/24 07:48 Family History: FH: myocardial infarction G8 FATHER FH: natural G8 MOTHER 19 CHILD Review of Systems Reviewed and negative unless otherwise noted in HPI. H&P Exam Vital Signs/I&O Vital Sign Date Time Temp Pulse Resp B/P (MAP) Pulse Ox O2 Delivery O2 Flow Rate FiO2 09/06/24 10:00 96 Room Air 0.0 09/06/24 10:00 21 09/06/24 09:00 97.8 56 16 121/90 (100) 97.8 Intake and Output 09/05/24 09/06/24 19:00 07:00 Intake Total 984 ml 1550 ml Output Total 2200 ml 4700 ml Balance -1216 ml -3150 ml Intake Oral 984 ml 1400 ml IV Total 150 ml Output Urine Total 2200 ml 4700 ml Physical Exam Vitals and nursing notes reviewed. General Appearance: Cooperative. Well-developed. Well-nourished. No acute distress. HENT: NC/AT. MMM Pulmonary/Respiratory: Normal effort. Clear breath sounds present. Cardiovascular/Chest: Irregular rate and rhythm. Abdominal Exam: Normal bowel sounds. Lower extremities: 2+ pitting edema Neuro/Mental Status: A/OX4, coherent. Thoughts/Psych: Normal thought pattern. Appropriate mood and affect. Good judgment and insight. Appearance: No acute distress. Skin Exam: Redness to bilateral knees and feet. Skin warm and dry Labs/Diagnostic Data Labs/Diagnostic Data Laboratory Tests Test 09/05/24 13:50 09/05/24 06:46 09/04/24 04:57 09/03/24 06:40 Range/Units Body Fluid Source Pleural fluid Body Fluid pH 9.0 Body Fluid WBC (Manual) 280 H 0-200 CUMM Body Fluid RBC (Manual) 270 0-2000 CUMM Body Fluid Mononuclear Cells 46 % Body Fluid Polymorphonuclear Cells 54 H 0-25 % White Blood Count 9.5 10.7 12.0 H 4.4-10.8 10^3/uL Red Blood Count 5.00 5.07 5.41 4.5-5.90 10^6/uL Hemoglobin 13.1 L 13.1 L 13.5 13.5-17.5 g/dL Hematocrit 40.9 L 40.7 L 43.6 41.0-53.0 % Mean Corpuscular Volume 81.8 80.2 80.6 80.0-100.0 fL Mean Corpuscular Hemoglobin 26.1 L 25.8 L 24.9 L 28.0-32.0 pg Mean Corpuscular Hemoglobin Concent 31.9 L 32.1 30.9 L 32.0-36.0 g/dL Red Cell Distribution Width 20.7 H 19.8 H 20.4 H 11.8-14.3 % Platelet Count 272 298 350 140-450 10^3/uL Mean Platelet Volume 8.3 8.5 8.4 6.9-10.8 fL Neutrophils (%) (Auto) 68.6 71.6 73.5 37.0-80.0 % Lymphocytes (%) (Auto) 14.1 12.2 10.8 10.0-50.0 % Monocytes (%) (Auto) 15.0 H 13.3 H 14.0 H 0.0-12.0 % Eosinophils (%) (Auto) 1.6 2.1 0.9 0.0-7.0 % Basophils (%) (Auto) 0.7 0.8 0.8 0.0-2.0 % Neutrophils # (Auto) 6.5 7.7 8.8 H 1.6-8.6 10 ^3/uL Lymphocytes # (Auto) 1.3 1.3 1.3 0.4-5.4 10 ^3/uL Monocytes # (Auto) 1.4 H 1.4 H 1.7 H 0-1.3 10 ^3/uL Eosinophils # (Auto) 0.2 0.2 0.1 0-0.8 10 ^3/uL Basophils # (Auto) 0.1 0.1 0.1 0-0.2 10 ^3/uL Differential Total Cells Counted 100.0 100 Neutrophils % (Manual) 62 37.0-80.0 Band Neutrophils % (Manual) 0 Lymphocytes % (Manual) 21 10.0-50.0 Monocytes % (Manual) 15 H 0-12 Eosinophils % (Manual) 2 0-7 Basophils % (Manual) 0 0.0-2.0 Metamyelocytes % (manual) 0 Myelocytes % (Manual) 0 Promyelocytes % (Manual) 0 Blast Cells % (Manual) 0 Nucleated Red Blood Cells 0.0 0.0 0.1 % Reactive Lymphocytes 0 Platelet Estimate Adequate Anisocytosis (manual) Slight Ovalocytes Few Sodium Level 136 138 134 L 136-145 mmol/L Potassium Level 4.9 3.5 4.2 3.5-5.1 mmol/L Chloride Level 100 100 103 98-107 mmol/L Carbon Dioxide Level 30 31 23 20-31 mmol/L Anion Gap 6 7 8 5-15 Blood Urea Nitrogen 41 H 40 H 43 H 9-23 mg/dL Creatinine 1.35 H 1.35 H 1.30 0.700-1.30 mg/dL Glomerular Filtration Rate Calc 61 61 64 >90 mL/min BUN/Creatinine Ratio 30.4 H 29.6 H 33.1 H 10.0-20.0 Serum Glucose 114 H 102 118 H 74-106 mg/dL Calcium Level 9.3 8.9 9.2 8.7-10.4 mg/dL Magnesium Level 1.9 2.0 1.6-2.6 mg/dL Total Bilirubin 2.1 H 2.6 H 2.5 H 0.2-1.0 mg/dL Aspartate Amino Transferase (AST) 29 27 29 13-40 U/L Alanine Aminotransferase (ALT) 24 21 26 7-40 U/L Alkaline Phosphatase 240 H 217 H 249 H 46-116 U/L Total Protein 6.1 5.8 6.4 5.7-8.2 g/dL Albumin 3.6 3.4 3.9 3.2-4.8 g/dL Digoxin Level 0.33 L 0.8-2 ng/mL Erythrocyte Sedimentation Rate 2 0-20 mm/hr Prothrombin Time 15.6 H 9.3-11.8 sec Prothrombin Time INR 1.54 H 0.9-1.15 Activated Partial Thromboplast Time 28.5 24.5-34.5 SEC Hemoglobin A1c 5.9 H <5.7 % A1C Serum Osmolality 299 H 278-298 mOsm/kg Lactic Acid Level 1.8 0.4-2.0 mmol/L C-Reactive Protein High Sensitivity 2.25 H <1.0 mg/dL Vitamin B12 Level 1346 H 211-911 pg/mL Vitamin D 25-Hydroxy 26.6 L 30.0-100 ng/mL Thyroid Stimulating Hormone (TSH) 2.87 0.55-4.78 uIU/mL Parathyroid Hormone (Intact) 146.7 H 18.4-80.1 pg/mL Anti-Nuclear Antibody Comment Comment . KAREN-1 Antibody <0.2 0.0-0.9 AI SS-A/Ro Antibody <0.2 0.0-0.9 AI SS-B/La Antibody <0.2 0.0-0.9 AI Sm Antibody <0.2 0.0-0.9 AI DAM WORKER Antibody 0.4 0.0-0.9 AI Scl-70 (Scleroderma) Antibody <0.2 0.0-0.9 AI Anti-Double Strand DNA Antibody 2 0-9 IU/mL Chromatin Antibody <0.2 0.0-0.9 AI Centromere B Antibody <0.2 0.0-0.9 AI Test 09/03/24 05:55 09/03/24 00:22 09/03/24 00:21 09/02/24 23:15 Range/Units Influenza Type A Antigen Negative Negative Influenza Type B Antigen Negative Negative SARS-CoV-2 Antigen (Rapid) Negative NEGATIVE Urine Color Light-yellow Yellow Urine Clarity Clear Clear Urine pH 5.0 5.0-9.0 Urine Specific [place] 1.009 1.001-1.035 Urine Protein Negative Negative Urine Ketones Negative Negative Urine Blood Negative Negative /uL Urine Nitrite Negative Negative Urine Bilirubin Negative Negative Urine Urobilinogen Normal Negative mg/dL Urine Leukocyte Esterase Negative Negative /uL Urine RBC None seen 0 - 3 /hpf Urine Microscopic WBC 1 0-3 /HPF Urine Squamous Epithelial Cells None seen <5 /hpf Urine Bacteria None seen None Seen /hpf Urine Hyaline Casts Few 0 - 2 /lpf Urine Osmolality 388 mOsm/kg Urine Creatinine 29.31 L 30.0-125.0 mg/dL Urine Protein/Creatinine Ratio 0.68 Urine Sodium 95 40-220 mmol/L Urine Glucose Normal Normal mg/dL Urine Total Protein 19.8 H 1-14 mg/dL Urine Opiates Screen Neg NEGATIVE Urine Fentanyl Screen Neg NEGATIVE Urine Barbiturates Screen Neg NEGATIVE Urine Phencyclidine Screen Neg NEGATIVE Urine Amphetamines Screen Pos NEGATIVE Urine Benzodiazepines Screen Neg NEGATIVE Urine Cocaine Screen Neg NEGATIVE Urine Cannabinoids Screen Neg NEGATIVE Troponin I High Sensitivity 48 </=54 ng/L Lactic Acid Level 2.7 *H 0.4-2.0 mmol/L Test 09/02/24 22:21 09/02/24 21:21 Range/Units Troponin I High Sensitivity 48 50 </=54 ng/L White Blood Count 11.3 H 4.4-10.8 10^3/uL Red Blood Count 5.51 4.5-5.90 10^6/uL Hemoglobin 14.3 13.5-17.5 g/dL Hematocrit 44.8 41.0-53.0 % Mean Corpuscular Volume 81.2 80.0-100.0 fL Mean Corpuscular Hemoglobin 25.9 L 28.0-32.0 pg Mean Corpuscular Hemoglobin Concent 31.9 L 32.0-36.0 g/dL Red Cell Distribution Width 20.9 H 11.8-14.3 % Platelet Count 367 140-450 10^3/uL Mean Platelet Volume 8.3 6.9-10.8 fL Neutrophils (%) (Auto) 72.1 37.0-80.0 % Lymphocytes (%) (Auto) 11.8 10.0-50.0 % Monocytes (%) (Auto) 14.7 H 0.0-12.0 % Eosinophils (%) (Auto) 0.5 0.0-7.0 % Basophils (%) (Auto) 0.9 0.0-2.0 % Neutrophils # (Auto) 8.1 1.6-8.6 10 ^3/uL Lymphocytes # (Auto) 1.3 0.4-5.4 10 ^3/uL Monocytes # (Auto) 1.7 H 0-1.3 10 ^3/uL Eosinophils # (Auto) 0.1 0-0.8 10 ^3/uL Basophils # (Auto) 0.1 0-0.2 10 ^3/uL Nucleated Red Blood Cells 0.1 % Sodium Level 133 L 136-145 mmol/L Potassium Level 4.5 3.5-5.1 mmol/L Chloride Level 102 98-107 mmol/L Carbon Dioxide Level 20 20-31 mmol/L Anion Gap 11 5-15 Blood Urea Nitrogen 39 H 9-23 mg/dL Creatinine 1.33 H 0.700-1.30 mg/dL Glomerular Filtration Rate Calc 62 >90 mL/min BUN/Creatinine Ratio 29.3 H 10.0-20.0 Serum Glucose 145 H 74-106 mg/dL Lactic Acid Level 3.3 *H 0.4-2.0 mmol/L Calcium Level 9.3 8.7-10.4 mg/dL B-Type Natriuretic Peptide 4229.28 0-100 pg/mL Microbiology Date/Time Source Procedure Growth Status 09/03/24 08:00 Nose MRSA Screen - Final Complete Assessment Atrial fibrillation with rapid ventricular rate Acute on chronic decompensated HFrEF, NYHA class III Cardiogenic shock Dilated cardiomyopathy, 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 Cardiology following. Empiric antibiotics with Vancomycin, Cefepime and Doxycycline. Diuretics with IV Lasix 40 mg t.i.d. Digoxin. Continue home medications as ordered. DVT/GI prophylaxis. Cardiac diet. Additional plan as per the hospital course. Plan discussed with: Patient, Other (RN) MATTHEW BLANCA DO September 06, 2024 11:23
--- NOTE | 2024-09-06 11:24 | DVHPN2 ---
Progress Note - Dictate Date Seen: September 06, 2024 Has the PT tested + for MRSA If YES, has PT been informed?: Yes Medical Necessity Reason Pt with a Central, PICC or Fol: No Subjective Patient was seen and evaluated in follow up. No acute events overnight. Patient reports feeling better. No new complaints. Discharge planning in progress. vital signs Vital Sign Date Time Temp Pulse Resp B/P (MAP) Pulse Ox O2 Delivery O2 Flow Rate FiO2 09/06/24 09:00 97.8 56 16 121/90 (100) 98 97.8 09/05/24 20:00 Room Air* 0 21 Total Intake and Output 09/05/24 09/05/24 09/06/24 15:00 23:00 07:00 Intake Total 240 ml 894 ml 1400 ml Output Total 2200 ml 4700 ml Balance 240 ml -1306 ml -3300 ml medications Current Medications Medications Dose Ordered Sig/Zainab Route Start Time Stop Time Status Last Admin Dose Admin Aspirin 81 mg DAILY PO 09/03/24 10:00 09/05/24 09:30 Atorvastatin Calcium 10 mg HS PO 09/03/24 22:00 09/05/24 21:55 Acetaminophen 500 mg Q4HPRN PRN PO 09/03/24 05:30 Acetaminophen/ Hydrocodone Bitart 1 tab Q4HPRN PRN PO 09/03/24 05:30 Morphine Sulfate 1 mg Q4HPRN PRN IV 09/03/24 05:30 Enoxaparin Sodium 90 mg Q12HR SC 09/03/24 05:30 09/05/24 21:56 Tamsulosin HCl 0.4 mg QPM PO 09/03/24 18:00 09/05/24 18:07 Vancomycin HCl 0 ml @ 0 mls/hr UD IV 09/03/24 07:45 Cefepime HCl 50 ml @ 12.5 mls/hr Q8HR IV 09/03/24 14:00 09/06/24 05:33 Vancomycin HCl 250 ml @ 200 mls/hr Q24H IV 09/04/24 09:00 09/05/24 09:26 Spironolactone 25 mg DAILY PO 09/05/24 10:00 09/05/24 09:31 Furosemide 40 mg BIDD IV 09/04/24 18:00 09/06/24 05:29 Doxycycline Hyclate 100 ml @ 50 mls/hr Q12H IV 09/04/24 18:30 09/06/24 06:18 Digoxin 0.125 mg DAILY PO 09/06/24 10:00 09/06/24 07:48 objective Vitals and nursing notes reviewed. General Appearance: Cooperative. Well-developed. Well-nourished. No acute distress. HENT: NC/AT. MMM Pulmonary/Respiratory: Normal effort. Clear breath sounds present. Cardiovascular/Chest: Irregular rate and rhythm. Abdominal Exam: Normal bowel sounds. Lower extremities: BLE edema, improved Neuro/Mental Status: A/OX4, coherent. Thoughts/Psych: Normal thought pattern. Appropriate mood and affect. Good judgment and insight. Appearance: No acute distress. Skin Exam: Redness to bilateral knees and feet. Skin warm and dry laboratory and microbiology Laboratory Tests 09/05/24 06:46 Test 09/05/24 06:46 Range/Units Serum Glucose 114 H 74-106 mg/dL Problem List Atrial fibrillation with rapid ventricular rate Acute on chronic decompensated HFrEF, NYHA class III Cardiogenic shock Dilated cardiomyopathy, likely drug-induced ROBERTO Hypertension Hyperlipidemia Mild tricuspid valve regurgitation Pulmonary hypertension Polysubstance use Tobacco use Medical noncompliance Assessment/Plan DC planning in progress. Cleared for discharge from Nephrology standpoint with outpatient follow up recommended. Plan discussed with: Patient, Other (RN) MATTHEW BLANCA DO September 06, 2024 11:24
[2024-09-06 11:50] VITALS: PULSE 140
[2024-09-06 13:08] LABS: Protein, Body Fluid 1.3 g/dL (.)
== END 2024-09-06 12:30 | disposition home or self-care (01) | DRG 720 ==
LOC: EDBD 20:58 → ER 20:58 → OVERFLOW 23:39 → TELE-WESTW 09-04 02:47
PROVIDERS: ADMIT Internal Medicine; ATTEND Internal Medicine
PROC: 0W993ZZ Drainage of Right Pleural Cavity, Percutaneous Approach (ICD-10-PCS; principal; 2024-09-05)
DX: A41.50 Gram-negative sepsis, unspecified (principal); J96.01 Acute respiratory failure with hypoxia; R57.0 Cardiogenic shock; I50.23 Acute on chronic systolic (congestive) heart failure; J15.69 Pneumonia due to other Gram-negative bacteria; J15.9 Unspecified bacterial pneumonia; J12.9 Viral pneumonia, unspecified; E87.20 Acidosis, unspecified; I13.0 Hypertensive heart and chronic kidney disease with heart failure and stage 1 through stage 4 chronic kidney disease, or unspecified chronic kidney disease; E87.1 Hypo-osmolality and hyponatremia; Z20.822 Contact with and (suspected) exposure to COVID-19; I27.20 Pulmonary hypertension, unspecified; I48.91 Unspecified atrial fibrillation; N18.9 Chronic kidney disease, unspecified; K42.9 Umbilical hernia without obstruction or gangrene; F15.90 Other stimulant use, unspecified, uncomplicated; N40.0 Benign prostatic hyperplasia without lower urinary tract symptoms; I07.1 Rheumatic tricuspid insufficiency; E78.5 Hyperlipidemia, unspecified; E21.0 Primary hyperparathyroidism; J91.8 Pleural effusion in other conditions classified elsewhere; N17.9 Acute kidney failure, unspecified; L03.115 Cellulitis of right lower limb; I42.0 Dilated cardiomyopathy; Z88.0 Allergy status to penicillin; Z88.8 Allergy status to other drugs, medicaments and biological substances; Z79.899 Other long term (current) drug therapy; Z79.82 Long term (current) use of aspirin; Z91.148 Patient's other noncompliance with medication regimen for other reason; T43.625A Adverse effect of amphetamines, initial encounter; Y92.89 Other specified places as the place of occurrence of the external cause
CPT/HCPCS: 32555; 36415; 71045; 73560; 74176; 76604; 76942; 80048; 80053; 80162; 80307; 81001; 82306; 82570; 82607; 83036; 83516; 83605; 83735; 83880; 83930; 83935; 83970; 83986; 84156; 84300; 84443; 84484; 85025; 85610; 85652; 85730; 86141; 86225; 86235; 87040; 87070; 87081; 87205; 87426; 87804; 89051; 93005; 93306; 93926; 94640; 96365; 96375; 99291; 99292; G0378; J0692

== ENCOUNTER 2024-09-20 22:00 | Emergency (ER) | payer OTHER ==
[~2024-09-20 22:00] MED LIST changes: +AUG875T PO; +DOXY-346 PO; -FURO40TA4 PO
[2024-09-21] MEDS ORDERED: TAMS-35 PO (00:57)
[2024-09-21] MEDS ORDERED: APIX5TAB PO (00:57)
[2024-09-21] MEDS ORDERED: FURO40TA4 PO (00:57)
[2024-09-21] MEDS ORDERED: POTA-228 PO (00:57)
== END 2024-09-20 22:19 | disposition left against medical advice (07) ==
LOC: ER 22:00
DX: Z76.0 Encounter for issue of repeat prescription (principal); Z53.21 Procedure and treatment not carried out due to patient leaving prior to being seen by health care provider

== ENCOUNTER 2024-09-20 23:46 | Emergency (ER) | payer OTHER ==
[~2024-09-20] VITALS: Ht 180.3 cm; Wt 85.9 kg
[2024-09-21] MEDS ORDERED: FURO40TA4 PO (00:57)
[2024-09-21] MEDS ORDERED: APIX5TAB PO (00:57)
[2024-09-21] MEDS ORDERED: TAMS-35 PO (00:57)
[2024-09-21] MEDS ORDERED: POTA-228 PO (00:57)
--- NOTE | 2024-09-21 01:01 | ED.PDOC ---
History of Present Illness HPI Comments 59 year old male who came to ER due to bilateral lower extremity swelling. Patient was discharged your last and was diagnosed with 1. Acute hypoxic respiratory failure due to Acute on chronic HF, 2. Cardiogenic shock, given Levophed drip, 3. Sepsis due to pneumonia, 4. Afib with RVR, 5. Pulmonary Edema, 6. BPH, 7. Hypertension, 8. Methamphetamine use disorder. Patient states he was discharged with no home medications, and since then he noted that these both his lower extremities has been gradually getting swollen. He denies any shortness a breath at this time. Patient coming in asking for a prescription of Lasix, Eliquis, Flomax, and potassium supplements. Chief Complaint: Lower Extremity Time Seen by MD: 01:00 Primary Care Provider: Dr. Matson Reviewed Notes: Nurses Notes Allergies: Coded Allergies: Amiodarone (Verified Allergy, Unknown, 08/16/23) Metoprolol (Verified Allergy, Unknown, rapid decrease in blood pressure, 1 ) Penicillins (Verified Allergy, Unknown, 06/09/23) Home Meds Active Scripts Tamsulosin Hcl (Flomax) 0.4 Mg Cap, 1 CAP PO DAILY for 90 Days, #30 CAP 11 Refills Prov:MICHAEL RAY MD 09/21/24 Apixaban Base (ELIQUIS) 5 Mg Tab, 5 MG PO BID for 90 Days, #180 TAB 5 Refills Prov:MICHAEL RAY MD 09/21/24 Potassium Chloride (Potassium Chloride ER) 10 Meq Tab, 10 MEQ PO BID for 90 Days, #180 TAB 5 Refills Prov:MICHAEL RAY MD 09/21/24 Furosemide (Furosemide) 40 Mg Tab, 1 TAB PO DAILY for 90 Days, #90 TAB 5 Refills Prov:MICHAEL RAY MD 09/21/24 Doxycycline (Monohydrate) (Doxycycline) 100 Mg Tab, 100 MG PO BID for 5 Days, #10 TAB Prov:RAJANI CLAROS RESDIENT 09/06/24 Amoxicillin & Pot Clavulanate (AUGMENTIN TABLET) 875 Mg Tb, 875 MG PO BID for 5 Days, #10 TAB Prov:RAJANI CLAROS RESDIENT 09/06/24 Digoxin (Digoxin) 125 Mcg Tab, 125 MCG PO DAILY for 20 Days, #20 TAB Prov:RAJANI CLAROS RESDIENT 09/06/24 Acetaminophen (Acetaminophen) 500 Mg Tab, 500 MG PO QIDP, #30 TAB 0 Refills Prov:DONNELL BRITO 04/15/24 Clindamycin Hcl (Clindamycin Hcl) 300 Mg Cap, 300 MG PO QID for 7 Days, #28 CAP 0 Refills Prov:DONNELL BRITO 04/15/24 Furosemide (Lasix) 40 Mg Tab, 40 MG PO DAILY for 30 Days, #30 TAB Prov:ANTIONE LUA [facility] 02/15/24 Carvedilol (COREG) 3.125 Mg Tab, 3.125 MG PO Q12HR for 30 Days, #60 TAB Prov:ANTIONE LUA [facility] 02/15/24 Digoxin (Lanoxin) 125 Mcg Tab, 0.125 MG PO DAILY for 30 Days, #30 TAB Prov:ANTIONE LUA [facility] 02/15/24 Spironolactone (Aldactone) 25 Mg Tab, 12.5 MG PO DAILY for 30 Days, #15 TAB 6 Refills Prov:JAH AYALA 08/19/23 Sacubitril-Valsartan (Entresto 24-26 mg) 1 Tab Tab, 1 TAB PO BID for 30 Days, #60 TAB 6 Refills Prov:JAH AYALA DO 08/19/23 Empagliflozin (Jardiance) 10 Mg Tab, 10 MG PO DAILY for 30 Days, #30 TAB 6 Refills Prov:JAH AYALA DO 08/19/23 Atorvastatin Calcium (ATORVASTATIN CALCIUM) 20 Mg Tab, 10 MG PO HS for 30 Days, #15 TAB 6 Refills Prov:JAH AYALA DO 08/19/23 Aspirin (Aspirin Low Dose) 81 Mg Tab, 81 MG PO DAILY for 30 Days, #30 TAB 6 Ref ills Prov:JAH AYALA DO 08/19/23 Digoxin (Digoxin) 125 Mcg Tab, 1 TAB PO DAILY for 30 Days, #30 TAB 6 Refills Prov:JAH AYALA DO 08/19/23 Apixaban Base (ELIQUIS) 5 Mg Tab, 5 MG PO BID for 30 Days, #60 TAB 6 Refills Prov:JAH AYALA DO 08/19/23 Information Source: Patient Mode of Arrival: Wheelchair Severity: Moderate Timing: Days Duration: Since onset Past Medical History PAST MEDICAL HISTORY: AFIB, CHF, High Lipids, HTN Past Medical History (Other): Pneumonia, pleural effusion, pulmonary edema Surgical History: Hernia Repair Family History Family History: Reviewed,noncontributory to illness Social History Smoker: Cigarettes, Less Than 1 Pack/Day Alcohol: Occasionally Drugs: Methamphetamine Lives In: Home Constitutional: denies: chills, diaphoresis, fatigue, fever, malaise, sweats, weakness, others EENTM: denies: blurred vision, double vision, ear bleeding, ear discharge, ear drainage, ear pain, ear ringing, eye pain, eye redness, hearing loss, mouth pain, mouth swelling, nasal discharge, nose bleeding, nose congestion, nose pain, photophobia, tearing, throat pain, throat swelling, voice changes, others Respiratory: denies: cough, hemoptysis, orthopnea, SOB at rest, shortness of breath, SOB with excertion, stridor, wheezing, others Cardiovascular: reports: edema; denies: chest pain, dizzy spells, diaphoresis, Dyspnea on exertion, irregular heart beat, left arm pain, lightheadedness, palpitations, PND, syncope, others Gastrointestinal: denies: abdomen distended, abdominal pain, blood streaked bowels, constipated, diarrhea, dysphagia, difficulty swallowing, hematemesis, melena, nausea, poor appetite, poor fluid intake, rectal bleeding, rectal pain, vomiting, others Genitourinary: denies: burning, dysuria, flank pain, frequency, hematuria, incontinence, penile discharge, penile sore, pain, testicle pain, testicle swelling, urgency, others Neurological: denies: dizziness, fainting, headache, left sided numbness, left sided weakness, numbness, paresthesia, pre-existing deficit, right sided numbness, right sided weakness, seizure, speech problems, tingling, tremors, weakness, others Musculoskeletal: denies: back pain, gout, joint pain, joint swelling, muscle pain, muscle stiffness, neck pain, others Integumetry: denies: bruises, change in color, change in hair/nails, dryness, laceration, lesions, lumps, rash, wounds, others Allergic/Immunocompromised: denies: Difficulty Healing, Frequent Infections, Hives, Itching, others Hematologic/Lymphatic: denies: anemia, blood clots, easy bleeding, easy bruising, swollen glands, others Endocrine: denies: excessive hunger, excessive sweating, excessive thirst, excessive urination, flushing, intolerance to cold, intolerance to heat, unexplained weight gain, unexplained weight loss, others Psychiatric: denies: anxiety, bipolar disorder, depression, hopeless, panic disorder, schizophrenia, sleepless, suicidal, others Physical Exam General Appearance: No Apparent Distress, Normal HEENT: Normal ENT Inspection, Pharynx Normal, TMs Normal Neck: Full Range of Motion, Non-Tender, Normal, Normal Inspection Respiratory: Chest Non-Tender, Lungs Clear, No Accessory Muscle Use, No Respiratory Distress, Normal Breath Sounds Cardiovascular: No Edema, No JVD, No Murmur, No Gallop, Normal Peripheral Pulses, Regular Rate/Rhythm Breast Exam: Deferred Gastrointestinal: No Organomegaly, Non Tender, No Pulsatile Mass, Normal Bowel Sounds, Soft Genitalia: Deferred Pelvic: Deferred Rectal: Deferred Extremities: No calf tenderness, Normal capillary refill, Normal inspection, Normal range of motion, Non-tender, No pedal edema Musculoskeletal : Apperance: Normal Neurologic: Alert, magento web developer II-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 Was a procedure done?: No Differential Dx Considerations may include: Congestive heart failure, AFib, medication noncompliance X-Ray, Labs, Meds, VS Vital Signs Date Time Temp Pulse Resp B/P (MAP) Pulse Ox O2 Delivery O2 Flow Rate FiO2 09/21/24 01:13 75 22 98 Room Air 09/21/24 01:13 98.3 75 22 110/75 (87) 98 98.3 09/21/24 01:07 110/75 09/20/24 23:50 97.7 62 18 117/91 (100) 95 97.7 Current Medications Medications (Trade) Dose Ordered Sig/Zainab Route Start Time Stop Time Status Last Admin Furosemide (Lasix Tablet) 40 mg ONCE ONCE PO 09/21/24 01:00 09/21/24 01:01 DC 09/21/24 01:07 Time of 1ST Reevaluation: 00:53 Reevaluation 1ST: Unchanged Patient Education/Counseling: Diagnosis, Treatment Family Education/Counseling: No Family Present Departure 1 Departure Time of Disposition: 03:00 Impression: Primary Impression: CHF (congestive heart failure) Disposition: 01 HOME / SELF CARE / HOMELESS Condition: Stable e-Prescriptions Tamsulosin Hcl (Flomax) 0.4 Mg Cap 1 CAP PO DAILY for 90 Days, #30 CAP 11 Refills Prov: MICHAEL RAY MD 09/21/24 Apixaban Base (ELIQUIS) 5 Mg Tab 5 MG PO BID for 90 Days, #180 TAB 5 Refills Prov: MICHAEL RAY MD 09/21/24 Potassium Chloride (Potassium Chloride ER) 10 Meq Tab 10 MEQ PO BID for 90 Days, #180 TAB 5 Refills Prov: MICHAEL RAY MD 09/21/24 Furosemide (Furosemide) 40 Mg Tab 1 TAB PO DAILY for 90 Days, #90 TAB 5 Refills Prov: MICHAEL RAY MD 09/21/24 Discharged With: Self Critical Care Note Critical Care Time?: No Stability Stability form required: No Heart Score Heart Score: Heart Score Response (Comments) Value History N/A 0 EKG N/A 0 Age N/A 0 Risk Factors N/A 0 Troponin N/A 0 Total 0 I personally scribed for MICHAEL RAY MD ([email or web address]) on 09/21/24 at 01:01. Electronically submitted by Richi Butt ([email or web address]). MICHAEL RAY MD September 21, 2024 01:01
[2024-09-21] MEDS: FUROSEMIDE 40 MG TAB PO ONE (01:07)
[2024-09-21 01:13] VITALS: BP 110/75; PULSE 75; RESP 22; TEMP 98.3; O2SAT 98
== END 2024-09-21 01:21 | disposition home or self-care (01) ==
LOC: ER 23:46
DX: I11.0 Hypertensive heart disease with heart failure (principal); I50.9 Heart failure, unspecified; I48.91 Unspecified atrial fibrillation; E78.5 Hyperlipidemia, unspecified; F17.210 Nicotine dependence, cigarettes, uncomplicated; F15.10 Other stimulant abuse, uncomplicated; Z98.890 Other specified postprocedural states; Z88.0 Allergy status to penicillin; Z79.899 Other long term (current) drug therapy

== ENCOUNTER 2024-10-03 00:10 | Inpatient (IN) | payer OTHER ==
[~2024-10-03] VITALS: Ht 180.3 cm; Wt 79.1 kg
[~2024-10-03 00:10] MED LIST changes: +FURO40TA4 PO; +POTA-228 PO; +TAMS-35 PO; +TAMS0.4C39 PO
--- NOTE | 2024-10-03 00:38 | ED.PDOC ---
HPI Comments HPI: Poor Historian. 59-year-old male presents to emergency department by ambulance from home for evaluation of midsternal chest pain and shortness of breath for the last three weeks worse in the last week. Patient has history of CHF and atrial fibrillation on Eliquis and states compliance with his water pills. He has been off of some of his medications in the last few days because he was not home. Denies any use of drugs however he drinks two shots of alcohol daily. Per EMS, patient was hypoxic 80% at room air. They placed him on supplemental oxygen. He was in atrial fibrillation with RVR at home. Past Medical History: CHF, atrial fibrillation, umbilical hernia Past Surgical History: Denies any REVIEW OF SYSTEMS: CONSTITUTIONAL: Denies acute: fever, diaphoresis, chills, HEAD: Denies acute: headache, photophobia Eyes: Denies acute: Double vision, vision loss, eye pain, eye discharge. EARS: Denies acute: tinnitus, hearing loss, ear discharge, ear pain, THROAT: Denies acute: sore throat, swelling, difficulty swallowing , pain with swallowing, change in voice. NECK: Denies acute: neck pain, neck swelling, stiff neck. HEART: Denies acute : , LUNGS: Denies acute: wheezing, cough, hemoptysis ABDOMEN: Denies acute: abdominal pain, Nausea, Vomiting, diarrhea, melena , hematemesis, hematochezia SKIN: Denies acute: rash, redness, lesions, itchiness. EXTREMITIES: Denies acute: calf pain, numbness, tingling, weakness, denies pain in extremity. Denies acute: Low back pain. Neuro: Denies acute: focal neurological deficit, motor or sensory focal neurological deficit, tremors, seizure like activity, confusion, dizziness, change in mental status, loss of bowel or bladder function, cauda equina like symptoms. : Denies acute: dysuria, hematuria, flank pain, increase in urinary frequency. PSYCH: Denies acute: hallucination, suicidal ideation, homicidal ideation. PHYSICAL EXAM: General: ---[id number]-----acute distress, awake and alert. Head: normocephalic, atraumatic. Neck: supple, trachea is midline, no swelling. Throat: Normal phonation. Eyes:, no erythema, no purulent discharge, no proptosis, no icterus. Heart: Regular rate and rhythm consistent with atrial fibrillation with RVR, no significant murmur appreciated. Lungs: Mild respiratory distress, Able to speak in full sentences. No wheezing, no rhonchi, no crackles. No stridors Clear to auscultation bilaterally. Abdomen: non tender to palpation, non distended, soft, no guarding, no rebound, + bowel sounds. Neuro: Awake, Alert, oriented to name, self, situation, follows commands GCS=15. Speech is normal. Skin: no petechia, no purpura, no cyanosis, non-pale, not jaundice. Lower extremities: --trace bilateral - Pitting edema no deformity, no focal swelling, no calf TTP. Makes eye contact. moves all four extremities. Face: no apparent facial droop. ED COURSE: Chief Complaint: Chest Pain Time Seen by MD: 00:11 Primary Care Provider: Dr. Matson Reviewed Notes: Nurses Notes, Allergies Allergies: Coded Allergies: Amiodarone (Verified Allergy, Unknown, 08/16/23) Metoprolol (Verified Allergy, Unknown, rapid decrease in blood pressure, 02/13/24) Penicillins (Verified Allergy, Unknown, 06/09/23) Home Meds Active Scripts Tamsulosin Hcl (Flomax) 0.4 Mg Cap, 1 CAP PO DAILY for 90 Days, #30 CAP 11 Refills Prov:MICHAEL RAY MD 09/21/24 Apixaban Base (ELIQUIS) 5 Mg Tab, 5 MG PO BID for 90 Days, #180 TAB 5 Refills Prov:MICHAEL RAY MD 09/21/24 Potassium Chloride (Potassium Chloride ER) 10 Meq Tab, 10 MEQ PO BID for 90 Days, #180 TAB 5 Refills Prov:MICHAEL RAY MD 09/21/24 Furosemide (Furosemide) 40 Mg Tab, 1 TAB PO DAILY for 90 Days, #90 TAB 5 Refills Prov:MICHAEL RAY MD 09/21/24 Doxycycline (Monohydrate) (Doxycycline) 100 Mg Tab, 100 MG PO BID for 5 Days, #10 TAB Prov:RAJANI CLAROS 09/06/24 Amoxicillin & Pot Clavulanate (AUGMENTIN TABLET) 875 Mg Tb, 875 MG PO BID for 5 Days, #10 TAB Prov:NISHANTSOBEIDANISHANTSerge RESDIENT 09/06/24 Digoxin (Digoxin) 125 Mcg Tab, 125 MCG PO DAILY for 20 Days, #20 TAB Prov:NISHANT CLAROSSerge RESDIENT 09/06/24 Acetaminophen (Acetaminophen) 500 Mg Tab, 500 MG PO QIDP, #30 TAB 0 Refills Prov:DONNELL BRITO 04/15/24 Clindamycin Hcl (Clindamycin Hcl) 300 Mg Cap, 300 MG PO QID for 7 Days, #28 CAP 0 Refills Prov:DONNELL BRITO 04/15/24 Furosemide (Lasix) 40 Mg Tab, 40 MG PO DAILY for 30 Days, #30 TAB Prov:ANTIONE LUA [facility] 02/15/24 Carvedilol (COREG) 3.125 Mg Tab, 3.125 MG PO Q12HR for 30 Days, #60 TAB Prov:ANTIONE LUA [facility] 02/15/24 Digoxin (Lanoxin) 125 Mcg Tab, 0.125 MG PO DAILY for 30 Days, #30 TAB Prov:ANTIONE LUA [facility] 02/15/24 Spironolactone (Aldactone) 25 Mg Tab, 12.5 MG PO DAILY for 30 Days, #15 TAB 6 Refills Prov:JAH AYALA 08/19/23 Sacubitril-Valsartan (Entresto 24-26 mg) 1 Tab Tab, 1 TAB PO BID for 30 Days, #60 TAB 6 Refills Prov:JAH AYALA DO 08/19/23 Empagliflozin (Jardiance) 10 Mg Tab, 10 MG PO DAILY for 30 Days, #30 TAB 6 Refills Prov:JAH AYALA 08/19/23 Atorvastatin Calcium (ATORVASTATIN CALCIUM) 20 Mg Tab, 10 MG PO HS for 30 Days, #15 TAB 6 Refills Prov:JAH AYALA DO 08/19/23 Aspirin (Aspirin Low Dose) 81 Mg Tab, 81 MG PO DAILY for 30 Days, #30 TAB 6 Refills Prov:JAH AYALA DO 08/19/23 Digoxin (Digoxin) 125 Mcg Tab, 1 TAB PO DAILY for 30 Days, #30 TAB 6 Refills Prov:JAH AYALA DO 08/19/23 Apixaban Base (ELIQUIS) 5 Mg Tab, 5 MG PO BID for 30 Days, #60 TAB 6 Refills Prov:JAH AYALA DO 08/19/23 Mode of Arrival: Ambulatory Past Medical History PAST MEDICAL HISTORY: AFIB, CHF, High Lipids, HTN Surgical History: Hernia Repair Family History Family History: Reviewed,noncontributory to illness Social History Smoker: Cigarettes, Less Than 1 Pack/Day Alcohol: Occasionally Drugs: Methamphetamine Lives In: Home Was a procedure done? Was a procedure done?: No CP Differential Dx Differential Diagnosis: A-fib, A-Flutter, Angina, Anxiety / Panic Attack, Atrial Dysrhythmia, Digoxin Toxicity, Electrolyte Disorder, Heart Failure, Hyperthyroidism, Hyperventilation, Hypoxia, MAT, NH, PAC's, PSVT, Pulmonary E mbolus, PVC's, Sinus Tachycardia, Torsades De Pointes, Ventricular Dysrhythmia, V-Fib, V-Tach, WPW Differential Diagnosis: Other (Ddx include but not limitied to gastritis, musculoskeletal pain, radiculopathy, atypical chest pain, dissection, aneurysm, ACS, unstable angina, hiatal hernia, GERD, anxiety, costochondritis, PE, pneumothroax, neoplasm, cardiac ischemia, drug abuse, anemia.) X-Ray, Labs, Meds, VS Vital Signs Date Time Temp Pulse Resp B/P (MAP) Pulse Ox O2 Delivery O2 Flow Rate FiO2 10/03/24 01:25 132 10/03/24 01:25 136/70 10/03/24 01:06 98.3 129 25 136/70 (92) 97 98.3 10/03/24 00:11 34 10/03/24 00:10 97.9 130 18 112/85 (94) 96 97.9 Lab Test 10/03/24 00:40 Range/Units White Blood Count 9.2 4.4-10.8 10^3/uL Red Blood Count 4.80 4.5-5.90 10^6/uL Hemoglobin 12.3 L 13.5-17.5 g/dL Hematocrit 38.5 L 41.0-53.0 % Mean Corpuscular Volume 80.2 80.0-100.0 fL Mean Corpuscular Hemoglobin 25.7 L 28.0-32.0 pg Mean Corpuscular Hemoglobin Concent 32.1 32.0-36.0 g/dL Red Cell Distribution Width 21.9 H 11.8-14.3 % Platelet Count 302 140-450 10^3/uL Mean Platelet Volume 8.1 6.9-10.8 fL Neutrophils (%) (Auto) 71.2 37.0-80.0 % Lymphocytes (%) (Auto) 11.4 10.0-50.0 % Monocytes (%) (Auto) 15.2 H 0.0-12.0 % Eosinophils (%) (Auto) 0.8 0.0-7.0 % Basophils (%) (Auto) 1.4 0.0-2.0 % Neutrophils # (Auto) 6.5 1.6-8.6 10 ^3/uL Lymphocytes # (Auto) 1.0 0.4-5.4 10 ^3/uL Monocytes # (Auto) 1.4 H 0-1.3 10 ^3/uL Eosinophils # (Auto) 0.1 0-0.8 10 ^3/uL Basophils # (Auto) 0.1 0-0.2 10 ^3/uL Nucleated Red Blood Cells 0.1 % Sodium Level 135 L 136-145 mmol/L Potassium Level 3.8 3.5-5.1 mmol/L Chloride Level 96 L 98-107 mmol/L Carbon Dioxide Level 27 20-31 mmol/L Anion Gap 12 5-15 Blood Urea Nitrogen 34 H 9-23 mg/dL Creatinine 1.69 H 0.700-1.30 mg/dL Glomerular Filtration Rate Calc 46 >90 mL/min BUN/Creatinine Ratio 20.1 H 10.0-20.0 Serum Glucose 107 H 74-106 mg/dL Lactic Acid Level Pending Calcium Level 8.8 8.7-10.4 mg/dL Magnesium Level 1.7 1.6-2.6 mg/dL Total Bilirubin 2.7 H 0.2-1.0 mg/dL Aspartate Amino Transferase (AST) 29 13-40 U/L Alanine Aminotransferase (ALT) 20 7-40 U/L Alkaline Phosphatase 182 H 46-116 U/L Troponin I High Sensitivity 48 </=54 ng/L B-Type Natriuretic Peptide 2805.18 0-100 pg/mL Total Protein 6.0 5.7-8.2 g/dL Albumin 3.8 3.2-4.8 g/dL Current Medications Medications (Trade) Dose Ordered Sig/Zainab Route Start Time Stop Time Status Last Admin Furosemide (Lasix Injection) 40 mg ONCE ONCE IV 10/03/24 00:30 10/03/24 00:31 DC 10/03/24 01:25 Digoxin (Lanoxin Injection) 125 mcg ONCE ONCE IV 10/03/24 00:45 10/03/24 00:48 DC 10/03/24 01:25 Time of 1ST Reevaluation: 01:32 (Chest x-ray is still pending. Patient has not received his medications yet.) Reevaluation 1ST: Unchanged Patient Education/Counseling: Diagnosis, Treatment Family Education/Counseling: Other Comments Patient presented with the above HPI.-hypoxemia, atrial fibrillation with RVR, chest pain, shortness of breath-----workup was initiated. patient was found with the above mentioned diagnosis. the following medications were ordered: please refer to order lists of meds and tests obtained by myself Dr. Vieira. Patient ED course and VS have been stabilized. Patient has been reassessed in the ED and remained in a stable condition. Pertinent incidental findings were discussed with the patient and/or family. Patient/family voices understanding and is agreeable with plan. Patient has been observed in the ED adequate length of time to insure improvement/stability. Escalation of care considered: Consideration of escalation to observation or admission Patient is allergic to amiodarone and metoprolol, patient was given his home medications of digoxin IV and Lasix. Patient states he is compliant with his Eliquis. Patient was ADMITTED to the medicine team for further evaluation and treatment of their presentation. All the reports of any imaging studies that were ordered by myself were reviewed by myself. Departure 1 Departure Time of Disposition: 00:37 Impression: Primary Impression: Atrial fibrillation with RVR Additional Impressions: Chest pain Dyspnea Hypoxemia CHF exacerbation Disposition: ADMITTED INPATIENT Admit to: Tele Condition: Guarded Discharged With: Self Critical Care Note Critical Care Time?: Yes (45 min-critical care time only) Heart Score Heart Score: Heart Score Response (Comments) Value History Highly Suspicious [address]-Deviation 2 Age 45-64 1 Risk Factors 1 or 2 risk factors 1 Troponin Normal limit 0 Total 6 ARTIE VIEIRA DO October 03, 2024 00:38
[2024-10-03 01:03] LABS: Basophils # (auto) 0.1 10 ^3/uL (0-0.2); Basophils % (auto) 1.4 % (0.0-2.0); Eosinophils # (auto) 0.1 10 ^3/uL (0-0.8); Eosinophils % (auto) 0.8 % (0.0-7.0); Hematocrit 38.5 % (41.0-53.0); Hemoglobin 12.3 g/dL (13.5-17.5); Lymphocytes % (auto) 11.4 % (10.0-50.0); Mean Corpuscular Hemoglobin 25.7 pg (28.0-32.0); Mean Corpuscular Hgb Conc. 32.1 g/dL (32.0-36.0); Mean Corpuscular Volume 80.2 fL (80.0-100.0); Monocytes # (auto) 1.4 10 ^3/uL (0-1.3); Monocytes % (auto) 15.2 % (0.0-12.0); Neutrophils # (auto) 6.5 10 ^3/uL (1.6-8.6); Neutrophils % (auto) 71.2 % (37.0-80.0); Nucleated Red Blood Cells % 0.1 %; Platelet Count (auto) 302 10^3/uL (140-450); Red Cell Distribution Width 21.9 % (11.8-14.3); White Blood Cell 9.2 10^3/uL (4.4-10.8)
[2024-10-03] MEDS: DIGOXIN (250MCG/ML) 2 ML AMPULE IV ONE ×2 (01:25→02:19)
[2024-10-03] MEDS: FUROSEMIDE 40 MG/4 ML VIAL IV ONE (01:25)
[2024-10-03 01:26] LABS: Alanine Aminotransferase 20 U/L (7-40); Albumin 3.8 g/dL (3.2-4.8); Anion Gap 12 (5-15); Aspartate Aminotransferase 29 U/L (13-40); BUN/Creatinine Ratio 20.1 (10.0-20.0); Calcium 8.8 mg/dL (8.7-10.4); Carbon Dioxide 27 mmol/L (20-31); Magnesium 1.7 mg/dL (1.6-2.6); Potassium 3.8 mmol/L (3.5-5.1)
[2024-10-03 01:30] LABS: Alkaline Phosphatase 182 U/L (46-116); Bilirubin, Total 2.7 mg/dL (0.2-1.0); Blood Urea Nitrogen 34 mg/dL (9-23); Chloride 96 mmol/L (98-107); Glucose 107 mg/dL (74-106); Sodium 135 mmol/L (136-145)
[2024-10-03 01:31] LABS: Lactic Acid w/Reflex 2.7 mmol/L (0.4-2.0)
[2024-10-03 01:35] VITALS: PULSE 138; RESP 24; O2SAT 96
[2024-10-03] MEDS ORDERED: ONDANSETRON HCL 4 MG/2 ML VIAL IV PRN (01:45)
[2024-10-03] MEDS ORDERED: ACETAMINOPHEN 325 MG TAB PO PRN (01:45)
[2024-10-03] MEDS ORDERED: NITROGLYCERIN 0.4 MG SL TAB SL PRN (01:45)
[2024-10-03] MEDS ORDERED: MORPHINE SULFATE INJ 2 MG/ml SYRG IV PRN (01:45)
[2024-10-03] MEDS ORDERED: DOCUSATE SOD 100 MG CAP PO PRN (01:45)
--- NOTE | 2024-10-03 01:46 | DVHHP2 ---
History of Present Illness Reason for Visit: Atrial fibrillation with RVR History of Present Illness The patient is a 59-year-old male with past medical history of CHF, atrial fibrillation, hypertension, and hyperlipidemia who presented to [facility] ED with complaint of midsternal chest pain. Patient reports symptoms progressively get worse with associated shortness of breaths for the past 3 weeks, increased work of breathing, getting worse that prompted this visit. Patient was seen and evaluated in the ED, laboratory data shows WBC 9.2, platelets 302, sodium 135, potassium 3.8, BUN 34, creatinine 1.69, glucose 107, lactic acid 2.7, total bilirubin 2.7, BNP 2805.18, troponin 48, blood pressure 136/70, heart rate 132 trending down to 96, temperature 98.3 F, O2 saturation 97% on oxygen. Chest x-ray revealing moderate to large right-sided pleural effusion and associated atelectasis/consolidation in right mid to lower lung, left lung is well inflated and clear, no pulmonary edema. Patient was started on IV Lasix, please see medication orders section in the computer. On my assessment, patient denies chest pain at this moment, no headache, no dizziness, currently on oxygen, no diaphoresis, no nausea, no vomiting, no fever, no chills. Patient was admitted for further evaluation and medical management. Past Medical History CHF, Atrial fibrillation, HTN, HLD, umbilical hernia Past Surgical History Hernia Repair Family History Reviewed, noncontributory to the management of this case. Past Social History The patient lives at home, smokes cigarettes less than 1 pack per day, drinks alcohol occasionally, uses methamphetamine. Review of Systems Constitutional: No: Fever, Chills, Sweats, Weakness, Malaise, Other Eyes: No: Pain, Vision change, Conjunctivae inflammation, Eyelid inflammation, Other, Redness ENT: No: Ear pain, Ear discharge, Nose pain, Nose discharge, Nose congestion, Mouth pain, Mouth swelling, Throat pain, Throat swelling, Other Respiratory: Shortness of breath, Other (SOB at rest); No: Cough, Dry, SOB with excertion, Wheezing, Hemoptysis, Pleuritic Pain, Sputum, Wheezing Cardiovascular: Chest Pain; No: Palpitations, Orthopnea, Paroxysmal Noc. Dyspnea, Edema, Lt Headedness, Other Gastrointestinal: No: Nausea, Vomiting, Abdominal Pain, Diarrhea, Constipation, Melena, Hematochezia, Other Genitourinary: No Dysuria, No Frequency, No Incontinence, No Hematuria, No Retention, No Other Musculoskeletal: No: other, neck pain, shoulder pain, arm pain, back pain, hand pain, leg pain, foot pain Skin: No: Rash, Lesions, Jaundice, Bruising, Other Neurological: No: Weakness, Numbness, Incoordination, Change in speech, C onfusion, Seizures, Other Allergies: Coded Allergies: Amiodarone (Verified Allergy, Unknown, 08/16/23) Metoprolol (Verified Allergy, Unknown, rapid decrease in blood pressure, 02/13/24) Penicillins (Verified Allergy, Unknown, 06/09/23) Exam Vital Signs Vital Signs Date Time Temp Pulse Resp B/P (MAP) Pulse Ox O2 Delivery O2 Flow Rate FiO2 10/03/24 01:35 98.1 138 24 135/87 (103) 95 98.1 10/03/24 01:35 Nasal Cannula* 4 36 General Appearance: Alert, Oriented X3, Cooperative, No acute distress HEENT: Atraumatic, PERRLA, EOMI, Mucous membr. moist/pink Respiratory: Other (Diminished breath sounds) Cardiovascular: Regular rate, Normal S1, Normal S2, No murmurs Abdominal: Normal bowel sounds, Soft, No tenderness, No hepatospenomegaly, No masses Extremities: No clubbing, No cyanosis, No edema, Normal pulses, No tenderness/swelling Skin: No rashes, No breakdown, No significant lesion Neuro: Normal speech, Normal tone, Sensation intact, Cranial nerves 3-12 NL, Reflexes 2+, Other (Generalized weakness) Psych/Mental Status: Mental status NL, Mood NL Labs/Xrays Labs Test 10/03/24 00:40 Range/Units White Blood Count 9.2 4.4-10.8 10^3/uL Red Blood Count 4.80 4.5-5.90 10^6/uL Hemoglobin 12.3 L 13.5-17.5 g/dL Hematocrit 38.5 L 41.0-53.0 % Mean Corpuscular Volume 80.2 80.0-100.0 fL Mean Corpuscular Hemoglobin 25.7 L 28.0-32.0 pg Mean Corpuscular Hemoglobin Concent 32.1 32.0-36.0 g/dL Red Cell Distribution Width 21.9 H 11.8-14.3 % Platelet Count 302 140-450 10^3/uL Mean Platelet Volume 8.1 6.9-10.8 fL Neutrophils (%) (Auto) 71.2 37.0-80.0 % Lymphocytes (%) (Auto) 11.4 10.0-50.0 % Monocytes (%) (Auto) 15.2 H 0.0-12.0 % Eosinophils (%) (Auto) 0.8 0.0-7.0 % Basophils (%) (Auto) 1.4 0.0-2.0 % Neutrophils # (Auto) 6.5 1.6-8.6 10 ^3/uL Lymphocytes # (Auto) 1.0 0.4-5.4 10 ^3/uL Monocytes # (Auto) 1.4 H 0-1.3 10 ^3/uL Eosinophils # (Auto) 0.1 0-0.8 10 ^3/uL Basophils # (Auto) 0.1 0-0.2 10 ^3/uL Nucleated Red Blood Cells 0.1 % Sodium Level 135 L 136-145 mmol/L Potassium Level 3.8 3.5-5.1 mmol/L Chloride Level 96 L 98-107 mmol/L Carbon Dioxide Level 27 20-31 mmol/L Anion Gap 12 5-15 Blood Urea Nitrogen 34 H 9-23 mg/dL Creatinine 1.69 H 0.700-1.30 mg/dL Glomerular Filtration Rate Calc 46 >90 mL/min BUN/Creatinine Ratio 20.1 H 10.0-20.0 Serum Glucose 107 H 74-106 mg/dL Lactic Acid Level 2.7 *H 0.4-2.0 mmol/L Calcium Level 8.8 8.7-10.4 mg/dL Magnesium Level 1.7 1.6-2.6 mg/dL Total Bilirubin 2.7 H 0.2-1.0 mg/dL Aspartate Amino Transferase (AST) 29 13-40 U/L Alanine Aminotransferase (ALT) 20 7-40 U/L Alkaline Phosphatase 182 H 46-116 U/L Troponin I High Sensitivity 48 </=54 ng/L B-Type Natriuretic Peptide 2805.18 0-100 pg/mL Total Protein 6.0 5.7-8.2 g/dL Albumin 3.8 3.2-4.8 g/dL PATIENT: CARMEN BERNALACCT: [id number] UNIT: [id number] : 1965 LOC: OVERFLOW ROOM / BED: [address] [place] [address] AGE / SEX: 59 / M ADM STATUS: ADM IN SERVICE ORDERING PHYSICIAN: ARTIE VIEIRA DO PROCEDURE(s): CXRP - CHEST PORTABLE REASON: cp sob hypoxemia Atrial fib w RVR ORDER NUMBER(s): [id number], ACCESSION NUMBER(s): [id number] CHEST RADIOGRAPH Indication: cp sob hypoxemia Atrial fib w RVR Technique: Single frontal view of the chest was obtained COMPARISON: XY CHEST PORTABLE on DOS: 09/05/24 FINDINGS/IMPRESSION: Lines and Tubes: None Lungs/Pleura: [id number] right-sided pleural effusion and associated atelectasis/consolidation in right edr-tj-payym lung. Left lung is well-inflated and clear. No pulmonary edema. Cardiomediastinal contours: Cardiomegaly. Assessment/Plan Assessment/Plan Atrial fibrillation with RVR Acute chest pain Acute renal injury Dyspnea Acute respiratory failure with hypoxia Hypoxemia Acute exacerbation of congestive heart failure Plan 1. Admit to telemetry unit 2. Breathing treatment 3. Pain control management 4. Management of fluids and electrolytes 5. Consultation for Cardiology/hospitalist 6. Diagnostic tests chest x-ray 7. DVT prophylaxis-on Eliquis 8. Repeat labs CBC, CMP in a.m. 9. Continue with current medical management 10. Treatment plan discussed with patient and RN. Patient verbalized understanding. Plan discussed with: Patient, Other (RN) My Orders Orders - [facility] Procedure Category Date Status Time Complete Blood Count LAB 10/03/24 Verified 04:00 Comprehensive LAB 10/03/24 Verified Metabolic Panel 04:00 Furosemide Injection PHA 10/03/24 Verified (Lasix Injection) 10:00 Digoxin Tablet PHA 10/03/24 Verified (Lanoxin Tablet) 10:00 Atorvastatin (Lipitor) PHA 10/03/24 Verified 22:00 Carvedilol Tablet PHA 10/03/24 Verified (Coreg Tablet) 10:00 Famotidine Injection PHA 10/03/24 Verified (Pepcid Injection) 10:00 * Cardiology Consult CONS 10/03/24 Verified 01:37 Apixaban (Eliquis) PHA 10/03/24 Verified 10:00 Admit ADMIT 10/03/24 Verified 01:37 Allergies MICHAEL 10/03/24 Verified 01:37 Code Status CODE 10/03/24 Verified 01:37 Oxygen Per Hour RT 10/03/24 Verified 01:37 Hydrocodone-Acet PHA 10/03/24 Verified 5/325mg Tab ([place] 01:45 Ondansetron Hcl PHA 10/03/24 Verified (Zofran) 01:45 Docusate Sodium PHA 10/03/24 Verified Capsule (Colace 01:45 Fall Risk Precautions [facility] 10/03/[address] 01:37 Complete Blood Count LAB 10/04/24 Verified 04:00 Comprehensive LAB 10/04/24 Verified Metabolic Panel 04:00 Cardiac DIET 10/03/24 Verified Diet-2gna,Lofat,Lochol Breakfast Echo 2d Mode Cardiac US 10/03/24 Verified DOP 01:37 Condition: Serious [facility] 10/03/24 Verified 01:37 Acetaminophen Tablet PHA 10/03/24 Verified (Tylenol Tablet) 01:45 Maintain Bed Rest [facility] 10/03/24 Verified 01:37 Sequential [facility] 10/03/24 Verified Compression Device Nitroglycerin [facility] 10/03/24 Verified Sublingual (Ntrostat 01:45 Morphine Sulfate [facility] 10/03/24 Verified Injection 01:45 Stat Ekg For Chest [facility] 10/03/24 Verified Pain 01:37 Notify Md Of Changes [facility] 10/03/24 Verified From Base 01:37 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 [facility] 10/03/24 Verified 24 Hours 01:37 Emergency Dysrhythmia [facility] 10/03/24 Verified Protocol 01:37 Rhythm Strips Once [facility] 10/03/24 Verified Every Shift 01:37 Oxygen By Nasal RT 10/03/24 Verified Cannula 01:37 Problem List: (1) Atrial fibrillation with RVR (2) Acute chest pain (3) Acute renal injury (4) Dyspnea (5) Acute respiratory failure with hypoxia (6) Acute exacerbation of congestive heart failure Date of Service: October 03, 2024 Billing Provider: SUMAN MCKEON DNP Common Visit Codes: [id number] INP/OBS CARE (HIGH) SUMAN MCKEON DNP October 03, 2024 01:46
--- NOTE | 2024-10-03 02:05 | DVH ---
CHEST RADIOGRAPH Indication: cp sob hypoxemia Atrial fib w RVR Technique: Single frontal view of the chest was obtained COMPARISON: XY CHEST PORTABLE on DOS: 09/05/24 FINDINGS / IMPRESSION: Lines and Tubes: None Lungs / Pleura: Frbhbayn-fj-kiawb right-sided pleural effusion and associated atelectasis/consolidati on in right fvm-xx-jkrez lung. Left lung is well-inflated and clear. No pulmonary edema. Cardiomediastinal contours: Cardiomegaly.
[2024-10-03 02:40] LABS: Urine Bacteria None Seen /hpf (None Seen)
[2024-10-03 02:53] LABS: Urine Blood Negative /uL (Negative); Urine Clarity Clear (Clear); Urine Color Dark-Yellow (Yellow); Urine Hyaline Cast MANY /lpf (0 - 2); Urine Mucus FEW (None Seen); Urine Protein, UAD 1+ (Negative); Urine Specific Gravity 1.018 (1.001-1.035); Urine Squamous Epithelial Cell FEW /hpf (<5); Urine Urobilinogen 8 mg/dL (Negative); Urine WBC 2 /HPF (0-3); Urine pH 5.5 (5.0-9.0)
--- NOTE | 2024-10-03 05:48 | ECG ---
[facility] Test Date: 2024-10-03 Test Time: 00:11:45 Pat Name: CARMEN BERNAL Department: ED Room: 0203T Gender: M Security Developer: korin : 1965 Requested By: ARTIE VIEIRA Order Number: [id number] Reading MD: Shad Washington Measurements Intervals [place] Rate: 134 P: 0 WV: 0 QRS: 87 QRSD: 75 T: 259 QT: 344 QTc: 514 Interpretive Statements Atrial fibrillation Ventricular premature complex Consider anterolateral infarct Borderline repolarization abnormality Prolonged QT interval Electronically Signed On 10-05-2024 22:16:36 PDT by Shad Washington Please click the below link to view image of tracing.
[2024-10-03 06:22] LABS: Basophils # (auto) 0.1 10 ^3/uL (0-0.2); Basophils % (auto) 1.4 % (0.0-2.0); Eosinophils # (auto) 0.1 10 ^3/uL (0-0.8); Hematocrit 41.3 % (41.0-53.0); Hemoglobin 13.3 g/dL (13.5-17.5); Lymphocytes # (auto) 1.1 10 ^3/uL (0.4-5.4); Lymphocytes % (auto) 12.3 % (10.0-50.0); Mean Corpuscular Hemoglobin 25.8 pg (28.0-32.0); Mean Corpuscular Hgb Conc. 32.2 g/dL (32.0-36.0); Mean Corpuscular Volume 80.2 fL (80.0-100.0); Monocytes # (auto) 1.4 10 ^3/uL (0-1.3); Monocytes % (auto) 15.7 % (0.0-12.0); Neutrophils # (auto) 6.4 10 ^3/uL (1.6-8.6); Neutrophils % (auto) 69.6 % (37.0-80.0); Nucleated Red Blood Cells % 0.1 %; Platelet Count (auto) 290 10^3/uL (140-450); Red Blood Cells 5.15 10^6/uL (4.5-5.90); White Blood Cell 9.2 10^3/uL (4.4-10.8)
[2024-10-03 06:41] LABS: Alanine Aminotransferase 17 U/L (7-40); Anion Gap 14 (5-15); Aspartate Aminotransferase 27 U/L (13-40); BUN/Creatinine Ratio 20.9 (10.0-20.0); Calcium 9.1 mg/dL (8.7-10.4); Carbon Dioxide 26 mmol/L (20-31); Glucose 94 mg/dL (74-106); Sodium 136 mmol/L (136-145); Total Protein 6.5 g/dL (5.7-8.2)
[2024-10-03 06:50] LABS: Alkaline Phosphatase 188 U/L (46-116); Bilirubin, Total 2.9 mg/dL (0.2-1.0); Blood Urea Nitrogen 32 mg/dL (9-23); Chloride 96 mmol/L (98-107); Potassium 3.1 mmol/L (3.5-5.1)
[2024-10-03 08:00] VITALS: PULSE 101; RESP 16; O2SAT 95
[2024-10-03] MEDS: POTASSIUM CHL 20 Meq TABLET PO ONE (08:27)
[2024-10-03] MEDS: MAGNESIUM SULFATE 1GM/100ML 100 ML IV ONE ×2 (08:27→10:09)
[2024-10-03 09:43] LABS: Amphetamine Screen, Urine Pos (NEGATIVE); Barbiturate Scree,Urine Neg (NEGATIVE); Benzodiazephine Screen, Urine Neg (NEGATIVE); Cannabinoid Screen, Urine Neg (NEGATIVE); Cocaine Screen, Urine Neg (NEGATIVE); Opiate Scree,Urine Neg (NEGATIVE); Phencyclidine Screen, Urine Neg (NEGATIVE)
--- NOTE | 2024-10-03 11:02 | DVHINCON2 ---
RAJANI CLAROS [facility] 10/03/24 1102: Date Seen: October 03, 2024 Reason for Consultation Shortness of breaths History of Present Illness This is a 59-year-old male with past medical history of heart failure (HFrEF, methamphetamine induced, EF 20%), permanent AFib (on Eliquis), BPH, recurrent right-sided pleural effusion/thoracentesis, hypertension and dyslipidemia came to the hospital due to shortness of breath since 1 week. Patient was recently discharged from hospital (had admitted due to CHF exacerbation), per patient he could not get his medicine including urine pills, since discharge he has shortness of breaths which progressively worsened and prompted this visit. Per patient, he has shortness of bed at baseline (Functional Class III) but recently has worsened. He also reports orthopnea, PND, generalized weakness. He denies fever, chest pain, cough, nausea, vomiting, or any recent sick contact. Of note, during last admission the patient underwent thoracentesis (took out 1.5 L of fluid), fluid analysis could not meet light criteria. Previous hospitalization: Had admitted on 09/02/2024, due to CHF exacerbation PMHx: heart failure (HFrEF, methamphetamine induced, EF 20%), permanent AFib (on Eliquis), BPH, recurrent right-sided pleural effusion/thoracentesis, hypertension and dyslipidemia PSHx: Not significant Family history: Noncontributory Social history: Ex methamphetamine user, ex marijuana user, received ex-smoker, denies any current drug use. Home medication: Eliquis 5 mg b.i.d., digoxin 0.125 mg, has been, atorvastatin, Jardiance, Lasix 40 mg daily, Entresto, Aldactone, and carvedilol, but the patient does not take any medicine the med. Allergic history: Amiodarone, metoprolol and penicillin Patient seen and examined at bedside. Patient is still complaining of shortness of breaths. Past Medical History Per H&P Past Surgical History Per H&P Family History: FH: myocardial infarction G8 FATHER FH: natural G8 MOTHER 19 CHILD Allergies: Coded Allergies: Amiodarone (Verified Allergy, Unknown, 08/16/23) Metoprolol (Verified Allergy, Unknown, rapid decrease in blood pressure, 02/13/24) Penicillins (Verified Allergy, Unknown, 06/09/23) Home Meds Active Scripts Tamsulosin Hcl (Flomax) 0.4 Mg Cap, 1 CAP PO DAILY for 90 Days, #30 CAP 11 Refills Prov:MICHAEL RAY MD 09/21/24 Apixaban Base (ELIQUIS) 5 Mg Tab, 5 MG PO BID for 90 Days, #180 TAB 5 Refills Prov:MICHAEL RAY MD 09/21/24 Potassium Chloride (Potassium Chloride ER) 10 Meq Tab, 10 MEQ PO BID for 90 Days, #180 TAB 5 Refills Prov:MICHAEL RAY MD 09/21/24 Furosemide (Furosemide) 40 Mg Tab, 1 TAB PO DAILY for 90 Days, #90 TAB 5 Refills Prov:MICHAEL RAY MD 09/21/24 Doxycycline (Monohydrate) (Doxycycline) 100 Mg Tab, 100 MG PO BID for 5 Days, #10 TAB Prov:RAJANI CLAROS RESDIENT 09/06/24 Amoxicillin & Pot Clavulanate (AUGMENTIN TABLET) 875 Mg Tb, 875 MG PO BID for 5 Days, #10 TAB Prov:RAJANI CLAROS RESDIENT 09/06/24 Digoxin (Digoxin) 125 Mcg Tab, 125 MCG PO DAILY for 20 Days, #20 TAB Prov:RAJANI CLAROS RESDIENT 09/06/24 Acetaminophen (Acetaminophen) 500 Mg Tab, 500 MG PO QIDP, #30 TAB 0 Refills Prov:DONNELL BRITO 04/15/24 Clindamycin Hcl (Clindamycin Hcl) 300 Mg Cap, 300 MG PO QID for 7 Days, #28 CAP 0 Refills Prov:DONNELL BRITO 04/15/24 Furosemide (Lasix) 40 Mg Tab, 40 MG PO DAILY for 30 Days, #30 TAB Prov:HASANTIONE ARTEAGA RESIDENT 02/15/24 Carvedilol (COREG) 3.125 Mg Tab, 3.125 MG PO Q12HR for 30 Days, #60 TAB Prov:HASJENNIRASHEDUL RESIDENT 02/15/24 Digoxin (Lanoxin) 125 Mcg Tab, 0.125 MG PO DAILY for 30 Days, #30 TAB Prov:JUDITH LUAUL RESIDENT 02/15/24 Spironolactone (Aldactone) 25 Mg Tab, 12.5 MG PO DAILY for 30 Days, #15 TAB 6 Refills Prov:JAH AYALA DO 08/19/23 Sacubitril-Valsartan (Entresto 24-26 mg) 1 Tab Tab, 1 TAB PO BID for 30 Days, #60 TAB 6 Refills Prov:JAH AYALA DO 08/19/23 Empagliflozin (Jardiance) 10 Mg Tab, 10 MG PO DAILY for 30 Days, #30 TAB 6 Refills Prov:JAH AYALA DO 08/19/23 Atorvastatin Calcium (ATORVASTATIN CALCIUM) 20 Mg Tab, 10 MG PO HS for 30 Days, #15 TAB 6 Refills Prov:JAH AYALA DO 08/19/23 Aspirin (Aspirin Low Dose) 81 Mg Tab, 81 MG PO DAILY for 30 Days, #30 TAB 6 Refills Prov:JAH AYALA DO 08/19/23 Digoxin (Digoxin) 125 Mcg Tab, 1 TAB PO DAILY for 30 Days, #30 TAB 6 Refills Prov:JAH AYALA DO 08/19/23 Apixaban Base (ELIQUIS) 5 Mg Tab, 5 MG PO BID for 30 Days, #60 TAB 6 Refills Prov:JAH AYALA DO 08/19/23 Current Medications Current Medications Medications (Trade) Dose Ordered Sig/Zainab Route PRN Reason Start Time Stop Time Status Last Admin Furosemide (Lasix Injection) 40 mg DAILY IV 10/03/24 10:00 Digoxin (Lanoxin Tablet) 0.125 mg DAILY PO 10/03/24 10:00 Atorvastatin Calcium (Lipitor) 20 mg HS PO 10/03/24 22:00 Carvedilol (Coreg Tablet) 3.125 mg Q12HR PO 10/03/24 10:00 Famotidine (Pepcid Injection) 20 mg DAILY IV 10/03/24 10:00 Apixaban (Eliquis) 5 mg BID PO 10/03/24 10:00 Acetaminophen/ Hydrocodone Bitart ([place] 5/325MG Tab) 1 tab Q4HP PRN PO MODERATE PAIN (4-6 PAIN SCALE) 10/03/24 01:45 Ondansetron HCl (Zofran) 4 mg Q4HP PRN IV NAUSEA / VOMITING 10/03/24 01:45 Docusate Sodium (Colace Capsule) 100 mg BIDPRN PRN PO FOR CONSTIPATION 10/03/24 01:45 Acetaminophen (Tylenol Tablet) 650 mg Q6HP PRN PO PAIN SCALE 1-3 OR TEMP>100.4 10/03/24 01:45 Nitroglycerin (Ntrostat Sublingual) 0.4 mg Q5MINP PRN SL FOR CHEST PAIN 10/03/24 01:45 Morphine Sulfate 2 mg Q30M PRN IV FOR CHEST PAIN 10/03/24 01:45 Review of Systems Per H&P Vital Signs Vital Signs Date Time Temp Pulse Resp B/P (MAP) Pulse Ox O2 Delivery O2 Flow Rate FiO2 10/03/24 10:00 139 20 127/101 (110) 98 10/03/24 08:00 97.4 97.4 10/03/24 08:00 Nasal Cannula* 4 36 Physical Exam General Appearance: Alert, Oriented X3, Cooperative, No acute distress HEENT: Atraumatic, PERRLA, EOMI, Mucous membrane moist/pink Respiratory: Bilateral lower zone crackles, decreased breath sound on the right side mid and lower zone Cardiovascular: Regular rate, Normal S1, Normal S2, No murmurs, no chest wall tenderness Abdominal: Normal bowel sounds, Soft, No tenderness, No hepatospenomegaly, No masses Extremities: No clubbing, No cyanosis, No edema, Normal pulses, No tenderness/swelling Skin: No rashes, No breakdown, No significant lesion Neuro: Normal gait, Normal speech, Strength at 5/5 X4 ext, Normal tone, Sensation intact, Cranial nerves 3-12 NL, Reflexes 2+ Psych/Mental Status: Mental status NL, Mood NL Labs/Diagnostic Data Labs Test 10/03/24 05:36 10/03/24 02:30 10/03/24 00:40 Range/Units White Blood Count 9.2 4.4-10.8 10^3/uL Red Blood Count 5.15 4.5-5.90 10^6/uL Hemoglobin 13.3 L 13.5-17.5 g/dL Hematocrit 41.3 41.0-53.0 % Mean Corpuscular Volume 80.2 80.0-100.0 fL Mean Corpuscular Hemoglobin 25.8 L 28.0-32.0 pg Mean Corpuscular Hemoglobin Concent 32.2 32.0-36.0 g/dL Red Cell Distribution Width 22.0 H 11.8-14.3 % Platelet Count 290 140-450 10^3/uL Mean Platelet Volume 8.5 6.9-10.8 fL Neutrophils (%) (Auto) 69.6 37.0-80.0 % Lymphocytes (%) (Auto) 12.3 10.0-50.0 % Monocytes (%) (Auto) 15.7 H 0.0-12.0 % Eosinophils (%) (Auto) 1.0 0.0-7.0 % Basophils (%) (Auto) 1.4 0.0-2.0 % Neutrophils # (Auto) 6.4 1.6-8.6 10 ^3/uL Lymphocytes # (Auto) 1.1 0.4-5.4 10 ^3/uL Monocytes # (Auto) 1.4 H 0-1.3 10 ^3/uL Eosinophils # (Auto) 0.1 0-0.8 10 ^3/uL Basophils # (Auto) 0.1 0-0.2 10 ^3/uL Nucleated Red Blood Cells 0.1 % Sodium Level 136 136-145 mmol/L Potassium Level 3.1 L 3.5-5.1 mmol/L Chloride Level 96 L 98-107 mmol/L Carbon Dioxide Level 26 20-31 mmol/L Anion Gap 14 5-15 Blood Urea Nitrogen 32 H 9-23 mg/dL Creatinine 1.53 H 0.700-1.30 mg/dL Glomerular Filtration Rate Calc 52 >90 mL/min BUN/Creatinine Ratio 20.9 H 10.0-20.0 Serum Glucose 94 74-106 mg/dL Lactic Acid Level 2.2 *H 0.4-2.0 mmol/L Calcium Level 9.1 8.7-10.4 mg/dL Total Bilirubin 2.9 H 0.2-1.0 mg/dL Aspartate Amino Transferase (AST) 27 13-40 U/L Alanine Aminotransferase (ALT) 17 7-40 U/L Alkaline Phosphatase 188 H 46-116 U/L Troponin I High Sensitivity 45 </=54 ng/L Total Protein 6.5 5.7-8.2 g/dL Albumin 4.0 3.2-4.8 g/dL Urine Color Dark-yellow Yellow Urine Clarity Clear Clear Urine pH 5.5 5.0-9.0 Urine Specific [place] 1.018 1.001-1.035 Urine Protein 1+ H Negative Urine Ketones Negative Negative Urine Blood Negative Negative /uL Urine Nitrite Negative Negative Urine Bilirubin 1+ Negative Urine Urobilinogen 8 H Negative mg/dL Urine Leukocyte Esterase Negative Negative /uL Urine RBC 3 0 - 3 /hpf Urine Microscopic WBC 2 0-3 /HPF Urine Squamous Epithelial Cells Few <5 /hpf Urine Bacteria None seen None Seen /hpf Urine Hyaline Casts Many 0 - 2 /lpf Urine Mucus Few None Seen Urine Glucose Normal Normal mg/dL Urine Opiates Screen Neg NEGATIVE Urine Fentanyl Screen Neg NEGATIVE Urine Barbiturates Screen Neg NEGATIVE Urine Phencyclidine Screen Neg NEGATIVE Urine Amphetamines Screen Pos NEGATIVE Urine Benzodiazepines Screen Neg NEGATIVE Urine Cocaine Screen Neg NEGATIVE Urine Cannabinoids Screen Neg NEGATIVE Magnesium Level 1.7 1.6-2.6 mg/dL B-Type Natriuretic Peptide 2805.18 0-100 pg/mL Assessment Acute hypoxic respiratory failure, likely due to CHF exacerbation Acute on chronic systolic heart failure Acute pulmonary edema, due to systolic heart failure Dilated cardiomyopathy, methamphetamine induced, EF 20% Right-sided pleural effusion, likely due to heart failure Atrial fibrillation with RVR Secondary hypercoagulability ROBERTO, likely VMN Methamphetamine use disorder Hypertension Dyslipidemia Possible pulmonary hypertension Moderate tricuspid valve regurgitation * EKGs shows, atrial fibrillation with rapid ventricular response, no significant ST or T-wave changes * Serial trop I is within normal limits, BNP is raised at 2800 * Echo from 09/04/2024 shows biatrial enlargement, severe LV global hypokinesia with EF 20% * [place] heart failure diagnostic criteria: Positive for the heart failure * Vasc score: 2 Plan/Recommendation (Case discussed with Dr. Calvin) * IV diuretic, Lasix60 mg t.i.d and metolazone 5mg daily * Continue Jardiance 10 mg daily, spironolactone 12.5 mg daily, and Entresto 24/ b.i.d. * Lovenox. and digoxin 0.125 mg daily * Follow up with the patient * Rest of plan, per primary team, may consult the IR for possible thoracentesis Thank you for allowing us to participate in this patient's care. Please call if you have any questions or concerns. Plan discussed with: Patient, Other NYHA Physical activity limitations: Class4(Severe)discomfort Date of Service: October 03, 2024 Billing Provider: VALERY CALVIN MD Cardiology Common Codes: [id number] INP/OBS CARE (High) VALERY CALVIN MD 10/03/24 1842: Family History: FH: myocardial infarction G8 FATHER FH: natural G8 MOTHER 19 CHILD Allergies: Coded Allergies: Amiodarone (Verified Allergy, Unknown, 08/16/23) Metoprolol (Verified Allergy, Unknown, rapid decrease in blood pressure, 02/13/24) Penicillins (Verified Allergy, Unknown, 06/09/23) Home Meds Active Scripts Tamsulosin Hcl (Flomax) 0.4 Mg Cap, 1 CAP PO DAILY for 90 Days, #30 CAP 11 Refills Prov:MICHAEL RAY MD 09/21/24 Apixaban Base (ELIQUIS) 5 Mg Tab, 5 MG PO BID for 90 Days, #180 TAB 5 Refills Prov:MICHAEL RAY MD 09/21/24 Potassium Chloride (Potassium Chloride ER) 10 Meq Tab, 10 MEQ PO BID for 90 Days, #180 TAB 5 Refills Prov:MICHAEL RAY MD 09/21/24 Furosemide (Furosemide) 40 Mg Tab, 1 TAB PO DAILY for 90 Days, #90 TAB 5 Refills Prov:MICHAEL RAY MD 09/21/24 Doxycycline (Monohydrate) (Doxycycline) 100 Mg Tab, 100 MG PO BID for 5 Days, #10 TAB Prov:RAJANI CLAROS RESDIENT 09/06/24 Amoxicillin & Pot Clavulanate (AUGMENTIN TABLET) 875 Mg Tb, 875 MG PO BID for 5 Days, #10 TAB Prov:RAJANI CLAROS RESDIENT 09/06/24 Digoxin (Digoxin) 125 Mcg Tab, 125 MCG PO DAILY for 20 Days, #20 TAB Prov:RAJANI CLAROS RESDIENT 09/06/24 Acetaminophen (Acetaminophen) 500 Mg Tab, 500 MG PO QIDP, #30 TAB 0 Refills Prov:DONNELL BRITO 04/15/24 Clindamycin Hcl (Clindamycin Hcl) 300 Mg Cap, 300 MG PO QID for 7 Days, #28 CAP 0 Refills Prov:DONNELL BRITO 04/15/24 Furosemide (Lasix) 40 Mg Tab, 40 MG PO DAILY for 30 Days, #30 TAB Prov:ANTIONE LUA [facility] 02/15/24 Carvedilol (COREG) 3.125 Mg Tab, 3.125 MG PO Q12HR for 30 Days, #60 TAB Prov:ANTIONE LUA [facility] 02/15/24 Digoxin (Lanoxin) 125 Mcg Tab, 0.125 MG PO DAILY for 30 Days, #30 TAB Prov:[facility]UDITH [facility] 02/15/24 Spironolactone (Aldactone) 25 Mg Tab, 12.5 MG PO DAILY for 30 Days, #15 TAB 6 Refills Prov:JAH AYALA 08/19/23 Sacubitril-Valsartan (Entresto 24-26 mg) 1 Tab Tab, 1 TAB PO BID for 30 Days, #60 TAB 6 Refills Prov:JAH AYALA 08/19/23 Empagliflozin (Jardiance) 10 Mg Tab, 10 MG PO DAILY for 30 Days, #30 TAB 6 Refills Prov:JAH AYALA 08/19/23 Atorvastatin Calcium (ATORVASTATIN CALCIUM) 20 Mg Tab, 10 MG PO HS for 30 Days, #15 TAB 6 Refills Prov:JAH AYALA 08/19/23 Aspirin (Aspirin Low Dose) 81 Mg Tab, 81 MG PO DAILY for 30 Days, #30 TAB 6 Refills Prov:JAH AYALA 08/19/23 Digoxin (Digoxin) 125 Mcg Tab, 1 TAB PO DAILY for 30 Days, #30 TAB 6 Refills Prov:JAH AYALA [facility] 08/19/23 Apixaban Base (ELIQUIS) 5 Mg Tab, 5 MG PO BID for 30 Days, #60 TAB 6 Refills Prov:JAH AYALA 08/19/23 Plan/Recommendation very ill patient, drug addict pt seen with CV team and examined early shock needs flomax +- martinez metolazone hold BB for now high risk for decompensation RAJANI CLAROS RESDIALEJANDRA October 03, 2024 11:02 VALERY CALVIN MD October 03, 2024 18:42
[2024-10-03] MEDS: FAMOTIDINE (10MG/ML) 2ML VL IV SCH (11:11)
[2024-10-03] MEDS: FUROSEMIDE 40 MG/4 ML VIAL IV SCH ×3 (11:12→22:22)
[2024-10-03] MEDS: APIXABAN 5 MG TAB PO SCH (11:12)
[2024-10-03] MEDS: DIGOXIN 0.125 MG TAB PO SCH (11:13)
[2024-10-03] MEDS: CARVEDILOL 3.125 MG TAB PO SCH (11:13)
[2024-10-03] MEDS: SPIRONOLACTONE 25 MG TAB PO ONE (13:04)
[2024-10-03 13:23] LABS: Magnesium 2.2 mg/dL (1.6-2.6)
[2024-10-03 13:26] LABS: Potassium 3.3 mmol/L (3.5-5.1)
[2024-10-03] MEDS ORDERED: CARVEDILOL 3.125 MG TAB PO SCH ×2 (13:30→22:00)
[2024-10-03] MEDS: TAMSULOSIN HYDROCHLORIDE 0.4 MG CAP PO ONE (13:54)
[2024-10-03] MEDS: CARVEDILOL 3.125 MG TAB PO ONE (13:55)
[2024-10-03] MEDS: HYDROcodone-ACET 5/325MG TAB PO PRN (15:03)
--- NOTE | 2024-10-03 16:08 | DVH ---
Bilateral Chest Sonogram Clinical history: Pleural effusion Technique: Limited sonographic evaluation of the right and left chest was performed. Findings/Impression: Small left and moderate right pleural effusion.
[2024-10-03] MEDS: metOLazone 5 MG TAB PO ONE (17:33)
[2024-10-03 19:30] VITALS: PULSE 98; RESP 21; O2SAT 98
[2024-10-03] MEDS: ENOXAPARIN SOD 100 MG/1 ML SYRINGE SC SCH (22:17)
[2024-10-03] MEDS: ATORVASTATIN 20 MG TAB PO SCH (22:17)
[2024-10-03 23:10] VITALS: BP 115/84; PULSE 85; RESP 20; TEMP 97.4; O2SAT 100
[2024-10-04] VITALS (8 sets, daily range): BP systolic 107–164; BP diastolic 58–86; PULSE 40–140; RESP 17–20; TEMP 97.1–98.1; O2SAT 95–100
[2024-10-04] MEDS: POTASSIUM CHL 20 Meq TABLET PO ONE (06:00)
[2024-10-04 07:35] LABS: Basophils # (auto) 0.1 10 ^3/uL (0-0.2); Eosinophils # (auto) 0.2 10 ^3/uL (0-0.8); Hematocrit 38.8 % (41.0-53.0); Hemoglobin 12.4 g/dL (13.5-17.5); Monocytes # (auto) 1.3 10 ^3/uL (0-1.3); Nucleated Red Blood Cells % 0.1 %; White Blood Cell 9.4 10^3/uL (4.4-10.8)
[2024-10-04 07:37] LABS: Basophils % (auto) 1.6 % (0.0-2.0); Eosinophils % (auto) 1.9 % (0.0-7.0); Lymphocytes # (auto) 1.1 10 ^3/uL (0.4-5.4); Lymphocytes % (auto) 12.2 % (10.0-50.0); Mean Corpuscular Hemoglobin 25.6 pg (28.0-32.0); Mean Corpuscular Hgb Conc. 31.9 g/dL (32.0-36.0); Mean Corpuscular Volume 80.3 fL (80.0-100.0); Monocytes % (auto) 13.6 % (0.0-12.0); Neutrophils # (auto) 6.7 10 ^3/uL (1.6-8.6); Neutrophils % (auto) 70.7 % (37.0-80.0); Platelet Count (auto) 286 10^3/uL (140-450); Red Blood Cells 4.83 10^6/uL (4.5-5.90); Red Cell Distribution Width 21.9 % (11.8-14.3)
[2024-10-04 07:55] LABS: Alanine Aminotransferase 16 U/L (7-40); Anion Gap 12 (5-15); BUN/Creatinine Ratio 23.2 (10.0-20.0); Calcium 9.6 mg/dL (8.7-10.4); Carbon Dioxide 27 mmol/L (20-31); Potassium 3.8 mmol/L (3.5-5.1)
[2024-10-04 07:56] LABS: Total Protein 6.3 g/dL (5.7-8.2)
[2024-10-04 07:57] LABS: Albumin 3.8 g/dL (3.2-4.8); Aspartate Aminotransferase 26 U/L (13-40)
[2024-10-04 07:59] LABS: Alkaline Phosphatase 189 U/L (46-116); Bilirubin, Total 3.3 mg/dL (0.2-1.0); Blood Urea Nitrogen 43 mg/dL (9-23); Chloride 96 mmol/L (98-107); Glucose 165 mg/dL (74-106); Sodium 135 mmol/L (136-145)
[2024-10-04] MEDS: metOLazone 5 MG TAB PO SCH ×2 (09:06→17:20)
[2024-10-04] MEDS: EMPAGLIFLOZIN 10 MG TAB PO SCH (09:06)
[2024-10-04] MEDS: SPIRONOLACTONE 25 MG TAB PO SCH (09:15)
--- NOTE | 2024-10-04 10:32 | DVHPN2 ---
Reviewed: Care Plan, H&P, Labs, Medications, Previous Orders, Radiology Changes from previous H/P or p: No Changes General: Per HPI Eyes: No Pain, No Vision change, No Conjunctivae inflammation, No Eyelid inflammation, No Other, No Redness ENT: No Ear pain, No Ear discharge, No Nose pain, No Nose discharge, No Nose congestion, No Mouth pain, No Mouth swelling, No Throat pain, No Throat swelling, No Other Cardiovascular: Chest Pain; No Palpitations, No Orthopnea, No Paroxysmal Noc. Dyspnea, No Edema, No Lt Headedness, No Other Respiratory: No Cough, No Dry; Shortness of breath; No SOB with excertion, No Wheezing, No Hemoptysis, No Pleuritic Pain, No Sputum; Other (SOB at rest) Gastrointestinal: No Nausea, No Vomiting, No Abdominal Pain, No Diarrhea, No Constipation, No Melena, No Hematochezia, No Other Genitourinary: No Dysuria, No Frequency, No Incontinence, No Hematuria, No Retention, No Other Musculoskeletal: No other, No neck pain, No shoulder pain, No arm pain, No back pain, No hand pain, No leg pain, No foot pain Skin: No Rash, No Lesions, No Jaundice, No Bruising, No Other Objective Vitals Vital Signs Date Time Temp Pulse Resp B/P (MAP) Pulse Ox O2 Delivery O2 Flow Rate FiO2 10/04/24 09:06 114/86 10/04/24 09:06 66 10/04/24 08:36 97.9 19 99 97.9 10/04/24 08:00 Nasal Cannula* 4 36 Intake/Output Intake and Output 10/04/24 07:00 Intake Total 500 ml Output Total 950 ml Balance -450 ml Intake Oral 400 ml IV Total 100 ml Output Urine Total 950 ml General Appearance: Alert, Oriented X3, Cooperative HEENT: Atraumatic Cardiovascular: Regular rate, Normal S1, Normal S2 Abdomen: Normal bowel sounds, Soft Medications Current Medications Medications Dose Ordered Sig/Zainab Route Start Time Stop Time Status Last Admin Dose Admin Digoxin 0.125 mg DAILY PO 10/03/24 10:00 10/04/24 09:06 0.125 MG Atorvastatin Calcium 20 mg HS PO 10/03/24 22:00 10/03/24 22:17 20 MG Famotidine 20 mg DAILY IV 10/03/24 10:00 10/04/24 09:05 20 MG Acetaminophen/ Hydrocodone Bitart 1 tab Q4HP PRN PO 10/03/24 01:45 10/03/24 15:03 1 TAB Ondansetron HCl 4 mg Q4HP PRN IV 10/03/24 01:45 Docusate Sodium 100 mg BIDPRN PRN PO 10/03/24 01:45 Acetaminophen 650 mg Q6HP PRN PO 10/03/24 01:45 Nitroglycerin 0.4 mg Q5MINP PRN SL 10/03/24 01:45 Morphine Sulfate 2 mg Q30M PRN IV 10/03/24 01:45 Empaglifozin 10 mg DAILY PO 10/04/24 10:00 10/04/24 09:06 10 MG Spironolactone 12.5 mg DAILY PO 10/04/24 10:00 10/04/24 09:15 12.5 MG Tamsulosin HCl 0.4 mg QPM PO 10/04/24 18:00 Enoxaparin Sodium 90 mg Q12HR SC 10/03/24 22:00 10/04/24 09:05 90 MG Furosemide 60 mg TID IV 10/03/24 22:00 10/03/24 22:22 60 MG Metolazone 5 mg DAILY PO 10/04/24 10:00 10/04/24 09:06 5 MG Laboratory Results Laboratory Tests 10/04/24 05:35 Chemistry Test 10/03/24 12:48 10/04/24 05:35 Magnesium Level 2.2 mg/dL (1.6-2.6) Albumin 3.8 g/dL (3.2-4.8) Calcium Level 9.6 mg/dL (8.7-10.4) Total Protein 6.3 g/dL (5.7-8.2) LFT Test 10/04/24 05:35 Alanine Aminotransferase (ALT) 16 U/L (7-40) Alkaline Phosphatase 189 U/L (46-116) H Aspartate Amino Transferase (AST) 26 U/L (13-40) Total Bilirubin 3.3 mg/dL (0.2-1.0) H Urinalysis Test 10/03/24 02:30 Urine Color Dark-yellow (Yellow) Urine Clarity Clear (Clear) Urine pH 5.5 (5.0-9.0) Urine Specific [place] 1.018 (1.001-1.035) Urine Protein 1+ (Negative) H Urine Ketones Negative (Negative) Urine Blood Negative /uL (Negative) Urine Nitrite Negative (Negative) Urine Bilirubin 1+ (Negative) Urine Urobilinogen 8 mg/dL (Negative) H Urine Leukocyte Esterase Negative /uL (Negative) Urine RBC 3 /hpf (0 - 3) Urine Microscopic WBC 2 /HPF (0-3) Urine Squamous Epithelial Cells Few /hpf (<5) Urine Bacteria None seen /hpf (None Seen) Urine Hyaline Casts Many /lpf (0 - 2) Urine Mucus Few (None Seen) Urine Glucose Normal mg/dL (Normal) Labs and/or images reviewed: Labs reviewed by me, Image(s) reviewed by me Assessment/Plan Assessment/Plan The patient is a 59-year-old male with past medical history of CHF, atrial fibrillation, hypertension, and hyperlipidemia who presented to [facility] ED with complaint of midsternal chest pain. Patient reports symptoms progressively get worse with associated shortness of breaths for the past 3 weeks, increased work of breathing, getting worse that prompted this visit. Patient was seen and evaluated in the ED, laboratory data shows WBC 9.2, platelets 302, sodium 135, potassium 3.8, BUN 34, creatinine 1.69, glucose 107, lactic acid 2.7, total bilirubin 2.7, BNP 2805.18, troponin 48, blood pressure 136/70, heart rate 132 trending down to 96, temperature 98.3 F, O2 saturation 97% on oxygen. Chest x-ray revealing moderate to large right-sided pleural effusion and associated atelectasis/consolidation in right mid to lower lung, left lung is well inflated and clear, no pulmonary edema. Patient was started on IV Lasix, please see medication orders section in the computer. On my assessment, patient denies chest pain at this moment, no headache, no dizziness, currently on oxygen, no diaphoresis, no nausea, no vomiting, no fever, no chills. Patient was admitted for further evaluation and medical management. Atrial fibrillation with RVR Acute chest pain Acute renal injury Dyspnea Acute respiratory failure with hypoxia Acute exacerbation of congestive heart failure moderate to large pleural effusion 10/04/2024: consult to pulm for thoracentesis cardio consulted nephro on board Plan discussed with: Patient My Orders Orders - AYALA,JAH T DO Procedure Category Date Status Time Mrsa Screen VISH 10/04/24 In Process 06:03 *Consult CONS 10/04/24 Transmitted / 10:24 Date of Service: October 04, 2024 Billing Provider: JAH AYALA DO Common Visit Codes: [id number] INP/OBS CARE(HIGH) JAH AYALA DO October 04, 2024 10:32
--- NOTE | 2024-10-04 10:44 | DVHINCON2 ---
Date of service: October 04, [address] ayala Reason for Consultation pl effusion History of Present Illness HPI Patient is a 59-year-old gentleman with a history of congestive heart failure who presented with shortness of breaths and swelling. He was found to have pleural effusions bilaterally more on the right. Patient required supplemental oxygen admitted for further workup. Home Meds Active Scripts Tamsulosin Hcl (Flomax) 0.4 Mg Cap, 1 CAP PO DAILY for 90 Days, #30 CAP 11 Refills Prov:MICHAEL RAY MD 09/21/24 Apixaban Base (ELIQUIS) 5 Mg Tab, 5 MG PO BID for 90 Days, #180 TAB 5 Refills Prov:MICHAEL RAY MD 09/21/24 Potassium Chloride (Potassium Chloride ER) 10 Meq Tab, 10 MEQ PO BID for 90 Days, #180 TAB 5 Refills Prov:MICHAEL RAY MD 09/21/24 Furosemide (Furosemide) 40 Mg Tab, 1 TAB PO DAILY for 90 Days, #90 TAB 5 Refills Prov:MICHAEL RAY MD 09/21/24 Doxycycline (Monohydrate) (Doxycycline) 100 Mg Tab, 100 MG PO BID for 5 Days, #10 TAB Prov:RAJANI CLAROS RESDIENT 09/06/24 Amoxicillin & Pot Clavulanate (AUGMENTIN TABLET) 875 Mg Tb, 875 MG PO BID for 5 Days, #10 TAB Prov:RAJANI CLAROS RESDIENT 09/06/24 Digoxin (Digoxin) 125 Mcg Tab, 125 MCG PO DAILY for 20 Days, #20 TAB Prov:RAJANI CLAROS RESDIENT 09/06/24 Acetaminophen (Acetaminophen) 500 Mg Tab, 500 MG PO QIDP, #30 TAB 0 Refills Prov:DONNELL BRITO 04/15/24 Clindamycin Hcl (Clindamycin Hcl) 300 Mg Cap, 300 MG PO QID for 7 Days, #28 CAP 0 Refills Prov:DONNELL BRITO 04/15/24 Furosemide (Lasix) 40 Mg Tab, 40 MG PO DAILY for 30 Days, #30 TAB Prov:ANTIONE LUA 02/15/24 Carvedilol (COREG) 3.125 Mg Tab, 3.125 MG PO Q12HR for 30 Days, #60 TAB Prov:ANTIONE LUA [facility] 02/15/24 Digoxin (Lanoxin) 125 Mcg Tab, 0.125 MG PO DAILY for 30 Days, #30 TAB Prov:JUDITH LUAHCA [facility] 02/15/24 Spironolactone (Aldactone) 25 Mg Tab, 12.5 MG PO DAILY for 30 Days, #15 TAB 6 Refills Prov:JAH AYALA 08/19/23 Sacubitril-Valsartan (Entresto 24-26 mg) 1 Tab Tab, 1 TAB PO BID for 30 Days, #60 TAB 6 Refills Prov:JAH AYALA 08/19/23 Empagliflozin (Jardiance) 10 Mg Tab, 10 MG PO DAILY for 30 Days, #30 TAB 6 Refills Prov:JAH AYALA 08/19/23 Atorvastatin Calcium (ATORVASTATIN CALCIUM) 20 Mg Tab, 10 MG PO HS for 30 Days, #15 TAB 6 Refills Prov:JAH AYALA 08/19/23 Aspirin (Aspirin Low Dose) 81 Mg Tab, 81 MG PO DAILY for 30 Days, #30 TAB 6 Refills Prov:JAH AYALA 08/19/23 Digoxin (Digoxin) 125 Mcg Tab, 1 TAB PO DAILY for 30 Days, #30 TAB 6 Refills Prov:JAH AYALA 08/19/23 Apixaban Base (ELIQUIS) 5 Mg Tab, 5 MG PO BID for 30 Days, #60 TAB 6 Refills Prov:JAH AYALA 08/19/23 Past Medical History Cardiac: CHF, HTN Pulmonary: No pertinent Hx Central Nervous System: No pertinent Hx GI: No pertinent Hx Hemotology/Oncology: No pertinent Hx Hepatobiliary: No pertinent Hx Psychiatric: No pertinent Hx Musculoskeletal: No pertinent Hx Rheumotologic: No pertinent Hx Infectious Disease: No peritnent Hx ENT: No pertinent Hx Renal/: No pertinent Hx Endocrine: No pertinent Hx Dermatology: No pertinent Hx Past Surgical History: No pertinent Hx Patient Family History: FH: myocardial infarction G8 FATHER FH: natural G8 MOTHER 19 CHILD Review of Systems Constitutional: No symptom reported Ears, Nose, & Throat: No symptom reported Eyes: No symptom reported Pulmonary/Respiratory: Dyspnea Cardiovascular: No symptom reported Gastrointestinal: No symptom reported Genitourinary: No symptom reported Musculoskeletal: No symptom reported Skin: No symptom reported Psychiatric: No symptom reported Endocrine: No symptom reported Hemotologic/Lymphatic: No symptom reported H&P Exam Vital Signs Vital Signs Date Time Temp Pulse Resp B/P (MAP) Pulse Ox O2 Delivery O2 Flow Rate FiO2 10/04/24 09:06 114/86 10/04/24 09:06 66 10/04/24 08:36 97.9 19 99 97.9 10/04/24 08:00 Nasal Cannula* 4 36 General Appeara: Well developed, Well nourished Head Exam: Normal inspection Neck Exam: Normal inspection, Non-tender, Normal alignment Eye Exam: bilateral eye Normal inspection, bilateral eye PERRL Ear Exam: bilateral ear Auricle normal, bilateral ear Canal normal Nasal Exam: Normal inspection Mouth: Normal Inspection Pulmonary/Respiratory: Normal inspection, Normal breath sounds, Chest non- tender Cardiovascular/Chest: Normal inspection Peripheral Pulses: 4+ carotid (R), 4+ carotid (L) Abdominal Exam: Normal bowel sounds Labs/Xrays Labs Test 10/04/24 05:35 10/03/24 12:48 10/03/24 05:36 10/03/24 02:30 Range/Units White Blood Count 9.4 4.4-10.8 10^3/uL Red Blood Count 4.83 4.5-5.90 10^6/uL Hemoglobin 12.4 L 13.5-17.5 g/dL Hematocrit 38.8 L 41.0-53.0 % Mean Corpuscular Volume 80.3 80.0-100.0 fL Mean Corpuscular Hemoglobin 25.6 L 28.0-32.0 pg Mean Corpuscular Hemoglobin Concent 31.9 L 32.0-36.0 g/dL Red Cell Distribution Width 21.9 H 11.8-14.3 % Platelet Count 286 140-450 10^3/uL Mean Platelet Volume 8.7 6.9-10.8 fL Neutrophils (%) (Auto) 70.7 37.0-80.0 % Lymphocytes (%) (Auto) 12.2 10.0-50.0 % Monocytes (%) (Auto) 13.6 H 0.0-12.0 % Eosinophils (%) (Auto) 1.9 0.0-7.0 % Basophils (%) (Auto) 1.6 0.0-2.0 % Neutrophils # (Auto) 6.7 1.6-8.6 10 ^3/uL Lymphocytes # (Auto) 1.1 0.4-5.4 10 ^3/uL Monocytes # (Auto) 1.3 0-1.3 10 ^3/uL Eosinophils # (Auto) 0.2 0-0.8 10 ^3/uL Basophils # (Auto) 0.1 0-0.2 10 ^3/uL Nucleated Red Blood Cells 0.1 % Sodium Level 135 L 136-145 mmol/L Potassium Level 3.8 3.5-5.1 mmol/L Chloride Level 96 L 98-107 mmol/L Carbon Dioxide Level 27 20-31 mmol/L Anion Gap 12 5-15 Blood Urea Nitrogen 43 #H 9-23 mg/dL Creatinine 1.85 H 0.700-1.30 mg/dL Glomerular Filtration Rate Calc 42 >90 mL/min BUN/Creatinine Ratio 23.2 H 10.0-20.0 Serum Glucose 165 H 74-106 mg/dL Calcium Level 9.6 8.7-10.4 mg/dL Total Bilirubin 3.3 H 0.2-1.0 mg/dL Aspartate Amino Transferase (AST) 26 13-40 U/L Alanine Aminotransferase (ALT) 16 7-40 U/L Alkaline Phosphatase 189 H 46-116 U/L Total Protein 6.3 5.7-8.2 g/dL Albumin 3.8 3.2-4.8 g/dL Magnesium Level 2.2 1.6-2.6 mg/dL Lactic Acid Level 2.2 *H 0.4-2.0 mmol/L Troponin I High Sensitivity 45 </=54 ng/L Urine Color Dark-yellow Yellow Urine Clarity Clear Clear Urine pH 5.5 5.0-9.0 Urine Specific [place] 1.018 1.001-1.035 Urine Protein 1+ H Negative Urine Ketones Negative Negative Urine Blood Negative Negative /uL Urine Nitrite Negative Negative Urine Bilirubin 1+ Negative Urine Urobilinogen 8 H Negative mg/dL Urine Leukocyte Esterase Negative Negative /uL Urine RBC 3 0 - 3 /hpf Urine Microscopic WBC 2 0-3 /HPF Urine Squamous Epithelial Cells Few <5 /hpf Urine Bacteria None seen None Seen /hpf Urine Hyaline Casts Many 0 - 2 /lpf Urine Mucus Few None Seen Urine Glucose Normal Normal mg/dL Urine Opiates Screen Neg NEGATIVE Urine Fentanyl Screen Neg NEGATIVE Urine Barbiturates Screen Neg NEGATIVE Urine Phencyclidine Screen Neg NEGATIVE Urine Amphetamines Screen Pos NEGATIVE Urine Benzodiazepines Screen Neg NEGATIVE Urine Cocaine Screen Neg NEGATIVE Urine Cannabinoids Screen Neg NEGATIVE Test 10/03/24 00:40 Range/Units B-Type Natriuretic Peptide 2805.18 0-100 pg/mL Assessment/Plan Plan Acute hypoxemic respiratory failure Congestive heart failure Atelectasis Pleural effusions Management plan Hold Eliquis We will proceed to ultrasound-guided thoracentesis Otherwise continue supportive care diuresis etc. Plan discussed with: Patient JESSICA RAYMUNDO MD October 04, 2024 10:44
--- NOTE | 2024-10-04 14:11 | DVHPN2 ---
Progress Note Date Seen: October 04, 2024 Medical Necessity Reason Pt with a Central, PICC or Fol: No Subjective Patient reports: Feels better Other Systems: diureseing little better pt seen with RN Objective vital signs Vital Sign Date Time Temp Pulse Resp B/P (MAP) Pulse Ox O2 Delivery O2 Flow Rate FiO2 10/04/24 13:23 111/78 10/04/24 12:56 97.3 40 18 100 97.3 10/04/24 08:00 Nasal Cannula* 4 36 Total Intake and Output 10/03/24 10/03/24 10/04/24 15:00 23:00 07:00 Intake Total 100 ml 400 ml Output Total 250 ml 700 ml Balance -150 ml -300 ml medications Current Medications Medications Dose Ordered Sig/Zainab Route Start Time Stop Time Status Last Admin Dose Admin Digoxin 0.125 mg DAILY PO 10/03/24 10:00 10/04/24 09:06 0.125 MG Atorvastatin Calcium 20 mg HS PO 10/03/24 22:00 10/03/24 22:17 20 MG Famotidine 20 mg DAILY IV 10/03/24 10:00 10/04/24 09:05 20 MG Acetaminophen/ Hydrocodone Bitart 1 tab Q4HP PRN PO 10/03/24 01:45 10/03/24 15:03 1 TAB Ondansetron HCl 4 mg Q4HP PRN IV 10/03/24 01:45 Docusate Sodium 100 mg BIDPRN PRN PO 10/03/24 01:45 Acetaminophen 650 mg Q6HP PRN PO 10/03/24 01:45 Nitroglycerin 0.4 mg Q5MINP PRN SL 10/03/24 01:45 Morphine Sulfate 2 mg Q30M PRN IV 10/03/24 01:45 Empaglifozin 10 mg DAILY PO 10/04/24 10:00 10/04/24 09:06 10 MG Spironolactone 12.5 mg DAILY PO 10/04/24 10:00 10/04/24 09:15 12.5 MG Tamsulosin HCl 0.4 mg QPM PO 10/04/24 18:00 Enoxaparin Sodium 90 mg Q12HR SC 10/03/24 22:00 10/04/24 09:05 90 MG Furosemide 60 mg TID IV 10/03/24 22:00 10/04/24 13:23 60 MG Metolazone 5 mg DAILY PO 10/04/24 10:00 10/04/24 09:06 5 MG Examination: GENERAL:Abnormal, HEENT:Abnormal, LUNGS:Abnormal, CVS:Abnormal, ABDOMEN:Abnormal laboratory and microbiology Laboratory Tests 10/04/24 05:35 Test 10/04/24 05:35 Range/Units Serum Glucose 165 H 74-106 mg/dL Microbiology Date/Time Source Procedure Growth Status 10/04/24 05:55 Nose MRSA Screen - Final Methicillin Resistant S.aureus Complete Problem List/Assessment/Plan Problem List/Assessment/Plan class IV HF ckd meth abuse drug abuse cont metolazone talked to RN, do not hold his lasix , was held in AM for no reason afib , resume doac hold BB for today if renal function worsens, will need inotrope therapy pt is aware his prognossi is poor and his response to diuretics are worse than before, he is non compliant, doesnt see MD outside of this hospital or obtain meds Plan discussed with: Patient My Orders My Orders Orders - VALERY CALVIN MD Procedure Category Date Status Time Furosemide Injection PHA 10/03/24 In Process (Lasix Injection) 22:00 Basic Metabolic Panel LAB 10/05/24 Verified 05:00 Basic Metabolic Panel LAB 10/06/24 Verified 05:00 Date of Service: October 04, 2024 Billing Provider: VALERY CALVIN MD Common Visit Codes: NOT BILLABLE VALERY CALVIN MD October 04, 2024 14:11
[2024-10-04] MEDS: TAMSULOSIN HYDROCHLORIDE 0.4 MG CAP PO SCH (17:20)
[2024-10-04] MEDS: FUROSEMIDE 40 MG/4 ML VIAL IV SCH (21:21)
[2024-10-05] VITALS (9 sets, daily range): BP systolic 98–142; BP diastolic 54–93; PULSE 61–119; RESP 16–18; TEMP 97.1–98.7; O2SAT 95–100
[2024-10-05 05:45] LABS: Anion Gap 8 (5-15)
[2024-10-05 05:50] LABS: BUN/Creatinine Ratio 23.4 (10.0-20.0); Glucose 86 mg/dL (74-106)
[2024-10-05 05:51] LABS: Blood Urea Nitrogen 46 mg/dL (9-23); Carbon Dioxide 34 mmol/L (20-31); Chloride 92 mmol/L (98-107); Potassium 3.3 mmol/L (3.5-5.1); Sodium 134 mmol/L (136-145)
[2024-10-05] MEDS ORDERED: DOBUTamine 1000MCG/ML 250 ML IV SCH (08:30)
--- NOTE | 2024-10-05 09:55 | DVHPN2 ---
Reviewed: Care Plan, H&P, Labs, Medications, Previous Orders, Radiology Changes from previous H/P or p: No Changes General: Per HPI Eyes: No Pain, No Vision change, No Conjunctivae inflammation, No Eyelid inflammation, No Other, No Redness ENT: No Ear pain, No Ear discharge, No Nose pain, No Nose discharge, No Nose congestion, No Mouth pain, No Mouth swelling, No Throat pain, No Throat swelling, No Other Cardiovascular: Chest Pain; No Palpitations, No Orthopnea, No Paroxysmal Noc. Dyspnea, No Edema, No Lt Headedness, No Other Respiratory: No Cough, No Dry; Shortness of breath; No SOB with excertion, No Wheezing, No Hemoptysis, No Pleuritic Pain, No Sputum; Other (SOB at rest) Gastrointestinal: No Nausea, No Vomiting, No Abdominal Pain, No Diarrhea, No Constipation, No Melena, No Hematochezia, No Other Genitourinary: No Dysuria, No Frequency, No Incontinence, No Hematuria, No Retention, No Other Musculoskeletal: No other, No neck pain, No shoulder pain, No arm pain, No back pain, No hand pain, No leg pain, No foot pain Skin: No Rash, No Lesions, No Jaundice, No Bruising, No Other Objective Vitals Vital Signs Date Time Temp Pulse Resp B/P (MAP) Pulse Ox O2 Delivery O2 Flow Rate FiO2 10/05/24 09:00 97.9 97 16 142/88 (106) 99 97.9 10/05/24 07:46 Nasal Cannula* 4 36 Intake/Output Intake and Output 10/05/24 07:00 Intake Total 1300 ml Output Total 4100 ml Balance -2800 ml Intake Oral 1300 ml Output Urine Total 4100 ml # Bowel Movements 2 General Appearance: Alert, Oriented X3, Cooperative HEENT: Atraumatic Cardiovascular: Regular rate, Normal S1, Normal S2 Abdomen: Normal bowel sounds, Soft Medications Current Medications Medications Dose Ordered Sig/Zainab Route Start Time Stop Time Status Last Admin Dose Admin Digoxin 0.125 mg DAILY PO 10/03/24 10:00 10/05/24 08:38 0.125 MG Atorvastatin Calcium 20 mg HS PO 10/03/24 22:00 10/04/24 21:18 20 MG Famotidine 20 mg DAILY IV 10/03/24 10:00 10/05/24 08:37 20 MG Acetaminophen/ Hydrocodone Bitart 1 tab Q4HP PRN PO 10/03/24 01:45 10/03/24 15:03 1 TAB Ondansetron HCl 4 mg Q4HP PRN IV 10/03/24 01:45 Docusate Sodium 100 mg BIDPRN PRN PO 10/03/24 01:45 Acetaminophen 650 mg Q6HP PRN PO 10/03/24 01:45 Nitroglycerin 0.4 mg Q5MINP PRN SL 10/03/24 01:45 Morphine Sulfate 2 mg Q30M PRN IV 10/03/24 01:45 Empaglifozin 10 mg DAILY PO 10/04/24 10:00 10/05/24 08:38 10 MG Spironolactone 12.5 mg DAILY PO 10/04/24 10:00 10/05/24 08:38 12.5 MG Tamsulosin HCl 0.4 mg QPM PO 10/04/24 18:00 10/04/24 17:20 0.4 MG Enoxaparin Sodium 90 mg Q12HR SC 10/03/24 22:00 10/04/24 09:05 90 MG Furosemide 80 mg TID IV 10/04/24 22:00 10/05/24 05:29 80 MG Metolazone 5 mg BIDD PO 10/04/24 18:00 10/05/24 05:29 5 MG Laboratory Results Laboratory Tests 10/04/24 05:35 10/05/24 04:29 Chemistry Test 10/05/24 04:29 Calcium Level 10.0 mg/dL (8.7-10.4) Urinalysis Test 10/03/24 02:30 Urine Color Dark-yellow (Yellow) Urine Clarity Clear (Clear) Urine pH 5.5 (5.0-9.0) Urine Specific [place] 1.018 (1.001-1.035) Urine Protein 1+ (Negative) H Urine Ketones Negative (Negative) Urine Blood Negative /uL (Negative) Urine Nitrite Negative (Negative) Urine Bilirubin 1+ (Negative) Urine Urobilinogen 8 mg/dL (Negative) H Urine Leukocyte Esterase Negative /uL (Negative) Urine RBC 3 /hpf (0 - 3) Urine Microscopic WBC 2 /HPF (0-3) Urine Squamous Epithelial Cells Few /hpf (<5) Urine Bacteria None seen /hpf (None Seen) Urine Hyaline Casts Many /lpf (0 - 2) Urine Mucus Few (None Seen) Urine Glucose Normal mg/dL (Normal) Microbiology Microbiology Date/Time Source Procedure Growth Status 10/04/24 05:55 Nose MRSA Screen - Final Methicillin Resistant S.aureus Complete Assessment/Plan Assessment/Plan The patient is a 59-year-old male with past medical history of CHF, atrial fibrillation, hypertension, and hyperlipidemia who presented to [facility] ED with complaint of midsternal chest pain. Patient reports symptoms progressively get worse with associated shortness of breaths for the past 3 weeks, increased work of breathing, getting worse that prompted this visit. Patient was seen and evaluated in the ED, laboratory data shows WBC 9.2, platelets 302, sodium 135, potassium 3.8, BUN 34, creatinine 1.69, glucose 107, lactic acid 2.7, total bilirubin 2.7, BNP 2805.18, troponin 48, blood pressure 136/70, heart rate 132 trending down to 96, temperature 98.3 F, O2 saturation 97% on oxygen. Chest x-ray revealing moderate to large right-sided pleural effusion and associated atelectasis/consolidation in right mid to lower lung, left lung is well inflated and clear, no pulmonary edema. Patient was started on IV Lasix, please see medication orders section in the computer. On my assessment, patient denies chest pain at this moment, no headache, no dizziness, currently on oxygen, no diaphoresis, no nausea, no vomiting, no fever, no chills. Patient was admitted for further evaluation and medical management. Atrial fibrillation with RVR Acute chest pain Acute renal injury Dyspnea Acute respiratory failure with hypoxia Acute exacerbation of congestive heart failure moderate to large pleural effusion 10/04/2024: consult to pulm for thoracentesis cardio consulted nephro on board 10/05/2024 to be evaluated by cardio and nephro Plan discussed with: Patient My Orders Orders - JAH AYALA DO Procedure Category Date Status Time *Consult CONS 10/04/24 Transmitted / 10:24 *Dr. Romana Mancuso CONS 10/04/24 Transmitted 10:31 Furosemide Injection PHA 10/04/24 In Process (Lasix Injection) 22:00 Metolazone (Zaroxolyn) PHA 10/04/24 In Process 18:00 Date of Service: Oct 05, 2024 Billing Provider: JAH AYALA DO Common Visit Codes: [id number] INP/OBS CARE(HIGH) JAH AYALA DO Oct 05, 2024 09:55
--- NOTE | 2024-10-05 10:06 | DVHPN2 ---
Progress Note Date Seen: Oct 05, 2024 Medical Necessity Reason Pt with a Central, PICC or Fol: No Subjective Patient reports: Feels better Other Systems: diuresed well Objective vital signs Vital Sign Date Time Temp Pulse Resp B/P (MAP) Pulse Ox O2 Delivery O2 Flow Rate FiO2 10/05/24 09:00 97.9 97 16 142/88 (106) 99 97.9 10/05/24 07:46 Nasal Cannula* 4 36 Total Intake and Output 10/04/24 10/04/24 10/05/24 15:00 23:00 07:00 Intake Total 600 ml 700 ml Output Total 2000 ml 2100 ml Balance -1400 ml -1400 ml medications Current Medications Medications Dose Ordered Sig/Zainab Route Start Time Stop Time Status Last Admin Dose Admin Digoxin 0.125 mg DAILY PO 10/03/24 10:00 10/05/24 08:38 0.125 MG Atorvastatin Calcium 20 mg HS PO 10/03/24 22:00 10/04/24 21:18 20 MG Famotidine 20 mg DAILY IV 10/03/24 10:00 10/05/24 08:37 20 MG Acetaminophen/ Hydrocodone Bitart 1 tab Q4HP PRN PO 10/03/24 01:45 10/03/24 15:03 1 TAB Ondansetron HCl 4 mg Q4HP PRN IV 10/03/24 01:45 Docusate Sodium 100 mg BIDPRN PRN PO 10/03/24 01:45 Acetaminophen 650 mg Q6HP PRN PO 10/03/24 01:45 Nitroglycerin 0.4 mg Q5MINP PRN SL 10/03/24 01:45 Morphine Sulfate 2 mg Q30M PRN IV 10/03/24 01:45 Empaglifozin 10 mg DAILY PO 10/04/24 10:00 10/05/24 08:38 10 MG Spironolactone 12.5 mg DAILY PO 10/04/24 10:00 10/05/24 08:38 12.5 MG Tamsulosin HCl 0.4 mg QPM PO 10/04/24 18:00 10/04/24 17:20 0.4 MG Enoxaparin Sodium 90 mg Q12HR SC 10/03/24 22:00 10/04/24 09:05 90 MG Furosemide 80 mg TID IV 10/04/24 22:00 10/05/24 05:29 80 MG Metolazone 5 mg BIDD PO 10/04/24 18:00 10/05/24 05:29 5 MG Examination: GENERAL:Abnormal, HEENT:Abnormal, LUNGS:Abnormal, CVS:Abnormal, ABDOMEN:Abnormal laboratory and microbiology Laboratory Tests 10/05/24 04:29 10/04/24 05:35 Test 10/05/24 04:29 Range/Units Serum Glucose 86 74-106 mg/dL Microbiology Date/Time Source Procedure Growth Status 10/04/24 05:55 Nose MRSA Screen - Final Methicillin Resistant S.aureus Complete Problem List/Assessment/Plan Problem List/Assessment/Plan class IV HF ckd meth abuse drug abuse cont metolazone talked to RN, do not hold his lasix , was held in AM for no reason afib , resume doac hold BB for today if renal function worsens, will need inotrope therapy pt is aware his prognossi is poor and his response to diuretics are worse than before, he is non compliant, doesnt see MD outside of this hospital or obtain meds hold off on dobutamine 1 more day of aggressive diuresis plan for dc 10/06 if stable on po lasix, Plan discussed with: Patient Date of Service: Oct 05, 2024 Billing Provider: VALERY CALVIN MD Common Visit Codes: NOT BILLABLE VALERY CALVIN MD Oct 05, 2024 10:06
--- NOTE | 2024-10-05 14:30 | DVHNC2 ---
Procedure - Procedure right-sided thoracentesis ultrasound-guided Indication pleural effusion. Procedure in detail consent was obtained time-out was done per protocol patient sustained a sitting position. ChloraPrep x2 was used to clean the upper significant sterile drapes cc cover the area local analgesia lidocaine 1% 3 cc. Approximately 1.3 L of light yellow fluid drained with size 8 Burmese catheter. At the end of the procedure Band-Aid applied No complications Chest x-ray ordered JESSICA RAYMUNDO MD Oct 05, 2024 14:30
--- NOTE | 2024-10-05 14:31 | DVHPN2 ---
Progress Note - Dictate Date Seen: Oct 05, 2024 Medical Necessity Reason Pt with a Central, PICC or Fol: No vital signs Vital Sign Date Time Temp Pulse Resp B/P (MAP) Pulse Ox O2 Delivery O2 Flow Rate FiO2 10/05/24 13:00 97.9 100 18 99/66 (77) 100 97.9 10/05/24 07:46 Nasal Cannula* 4 36 Total Intake and Output 10/04/24 10/04/24 10/05/24 15:00 23:00 07:00 Intake Total 600 ml 700 ml Output Total 2000 ml 2100 ml Balance -1400 ml -1400 ml medications Current Medications Medications Dose Ordered Sig/Zainab Route Start Time Stop Time Status Last Admin Dose Admin Digoxin 0.125 mg DAILY PO 10/03/24 10:00 10/05/24 08:38 0.125 MG Atorvastatin Calcium 20 mg HS PO 10/03/24 22:00 10/04/24 21:18 20 MG Famotidine 20 mg DAILY IV 10/03/24 10:00 10/05/24 08:37 20 MG Acetaminophen/ Hydrocodone Bitart 1 tab Q4HP PRN PO 10/03/24 01:45 10/03/24 15:03 1 TAB Ondansetron HCl 4 mg Q4HP PRN IV 10/03/24 01:45 Docusate Sodium 100 mg BIDPRN PRN PO 10/03/24 01:45 Acetaminophen 650 mg Q6HP PRN PO 10/03/24 01:45 Nitroglycerin 0.4 mg Q5MINP PRN SL 10/03/24 01:45 Morphine Sulfate 2 mg Q30M PRN IV 10/03/24 01:45 Empaglifozin 10 mg DAILY PO 10/04/24 10:00 10/05/24 08:38 10 MG Spironolactone 12.5 mg DAILY PO 10/04/24 10:00 10/05/24 08:38 12.5 MG Tamsulosin HCl 0.4 mg QPM PO 10/04/24 18:00 10/04/24 17:20 0.4 MG Enoxaparin Sodium 90 mg Q12HR SC 10/03/24 22:00 10/04/24 09:05 90 MG Furosemide 80 mg TID IV 10/04/24 22:00 10/05/24 05:29 80 MG Metolazone 5 mg BIDD PO 10/04/24 18:00 10/05/24 05:29 5 MG laboratory and microbiology Laboratory Tests 10/05/24 04:29 10/04/24 05:35 Test 10/05/24 04:29 Range/Units Serum Glucose 86 74-106 mg/dL Assessment/Plan Acute hypoxemic respiratory failure Pleural effusions Congestive heart failure Cardiomyopathy Events Patient is status post right-sided thoracentesis 1.3 L of fluid drained today Management plan Restart anticoagulants for cardiac issues Continue diuresis Supportive care bronchodilators/oxygen/incentive spirometry Plan discussed with: Other (rn) JESSICA RAYMUNDO MD Oct 05, 2024 14:31
--- NOTE | 2024-10-05 15:06 | DVH ---
INDICATION: S/P THORACETESIS TECHNIQUE: Frontal view of the chest. COMPARISON: XY CHEST PORTABLE on DOS: 10/03/24, XY CHEST PORTABLE on DOS: 09/05/24, XY CHEST PORTABLE on DOS: 09/02/24, XY CHEST PORTABLE on DOS: 02/11/24, XY CHEST PORTABLE on DOS: 08/16/23 FINDINGS: DECREASED RIGHT PLEURAL EFFUSION STATUS POST THORACENTESIS.. Small right pleural effusion remains . C ardiomegaly.. . Stable right basilar opacity. The bony structures of the chest are intact without fracture. IMPRESSION: 1. No pneumothorax status post right thoracentesis.
[2024-10-06 01:00] VITALS: BP 104/81; PULSE 67; RESP 18; O2SAT 96
[2024-10-06 05:00] VITALS: BP 111/72; PULSE 65; RESP 18; TEMP 97.7; O2SAT 95
[2024-10-06 06:39] LABS: Alanine Aminotransferase 17 U/L (7-40); Albumin 3.8 g/dL (3.2-4.8); Anion Gap 9 (5-15); Aspartate Aminotransferase 24 U/L (13-40); BUN/Creatinine Ratio 26.5 (10.0-20.0); Calcium 9.4 mg/dL (8.7-10.4); Glucose 85 mg/dL (74-106); Sodium 136 mmol/L (136-145); Total Protein 6.2 g/dL (5.7-8.2)
[2024-10-06 06:45] LABS: Alkaline Phosphatase 202 U/L (46-116); Bilirubin, Total 2.4 mg/dL (0.2-1.0); Blood Urea Nitrogen 53 mg/dL (9-23); Carbon Dioxide 39 mmol/L (20-31); Chloride 88 mmol/L (98-107); Potassium 3.3 mmol/L (3.5-5.1)
[2024-10-06 08:00] VITALS: PULSE 101; PULSE 111; RESP 18
[2024-10-06] MEDS: POTASSIUM EFFERVESENT TAB 25 MEQ PO ONE (08:42)
[2024-10-06 09:03] VITALS: BP 112/63; PULSE 60; RESP 17; TEMP 98.2; O2SAT 93
--- NOTE | 2024-10-06 11:24 | DVHPN2 ---
Subjective Feels better On room air Edema is gone Reviewed: Care Plan, H&P, Labs, Medications, Previous Orders, Radiology Changes from previous H/P or p: Changes General: Per HPI Eyes: No Pain, No Vision change, No Conjunctivae inflammation, No Eyelid inflammation, No Other, No Redness ENT: No Ear pain, No Ear discharge, No Nose pain, No Nose discharge, No Nose congestion, No Mouth pain, No Mouth swelling, No Throat pain, No Throat swelling, No Other Cardiovascular: Chest Pain; No Palpitations, No Orthopnea, No Paroxysmal Noc. Dyspnea, No Edema, No Lt Headedness, No Other Respiratory: No Cough, No Dry; Shortness of breath; No SOB with excertion, No Wheezing, No Hemoptysis, No Pleuritic Pain, No Sputum; Other (SOB at rest) Gastrointestinal: No Nausea, No Vomiting, No Abdominal Pain, No Diarrhea, No Constipation, No Melena, No Hematochezia, No Other Genitourinary: No Dysuria, No Frequency, No Incontinence, No Hematuria, No Retention, No Other Musculoskeletal: No other, No neck pain, No shoulder pain, No arm pain, No back pain, No hand pain, No leg pain, No foot pain Skin: No Rash, No Lesions, No Jaundice, No Bruising, No Other Objective Vitals Vital Signs Date Time Temp Pulse Resp B/P (MAP) Pulse Ox O2 Delivery O2 Flow Rate FiO2 10/06/24 09:48 108/60 10/06/24 09:48 62 10/06/24 09:03 98.2 17 93 98.2 10/06/24 08:00 Nasal Cannula* 2 28 Intake/Output Intake and Output 10/06/24 07:00 Intake Total 1975 ml Output Total 7650 ml Balance -5675 ml Intake Oral 1975 ml Output Urine Total 7650 ml General Appearance: Alert, Oriented X3, Cooperative HEENT: Atraumatic Cardiovascular: Regular rate, Normal S1, Normal S2 Abdomen: Normal bowel sounds, Soft Medications Current Medications Medications Dose Ordered Sig/Zainab Route Start Time Stop Time Status Last Admin Dose Admin Digoxin 0.125 mg DAILY PO 10/03/24 10:00 10/06/24 09:48 0.125 MG Atorvastatin Calcium 20 mg HS PO 10/03/24 22:00 10/05/24 22:55 20 MG Famotidine 20 mg DAILY IV 10/03/24 10:00 10/06/24 09:47 20 MG Acetaminophen/ Hydrocodone Bitart 1 tab Q4HP PRN PO 10/03/24 01:45 10/03/24 15:03 1 TAB Ondansetron HCl 4 mg Q4HP PRN IV 10/03/24 01:45 Docusate Sodium 100 mg BIDPRN PRN PO 10/03/24 01:45 Acetaminophen 650 mg Q6HP PRN PO 10/03/24 01:45 Nitroglycerin 0.4 mg Q5MINP PRN SL 10/03/24 01:45 Morphine Sulfate 2 mg Q30M PRN IV 10/03/24 01:45 Empaglifozin 10 mg DAILY PO 10/04/24 10:00 10/06/24 09:47 10 MG Spironolactone 12.5 mg DAILY PO 10/04/24 10:00 10/06/24 09:49 12.5 MG Tamsulosin HCl 0.4 mg QPM PO 10/04/24 18:00 10/05/24 17:40 0.4 MG Mupirocin 1 applic BID EACHNOSTRI 10/06/24 22:00 10/11/24 21:59 Apixaban 5 mg BID PO 10/06/24 22:00 UNV Furosemide 40 mg DAILY PO 10/07/24 10:00 UNV Laboratory Results Laboratory Tests 10/04/24 05:35 10/06/24 05:04 Chemistry Test 10/06/24 05:04 Albumin 3.8 g/dL (3.2-4.8) Calcium Level 9.4 mg/dL (8.7-10.4) Total Protein 6.2 g/dL (5.7-8.2) LFT Test 10/06/24 05:04 Alanine Aminotransferase (ALT) 17 U/L (7-40) Alkaline Phosphatase 202 U/L (46-116) H Aspartate Amino Transferase (AST) 24 U/L (13-40) Total Bilirubin 2.4 mg/dL (0.2-1.0) H Urinalysis Test 10/03/24 02:30 Urine Color Dark-yellow (Yellow) Urine Clarity Clear (Clear) Urine pH 5.5 (5.0-9.0) Urine Specific [place] 1.018 (1.001-1.035) Urine Protein 1+ (Negative) H Urine Ketones Negative (Negative) Urine Blood Negative /uL (Negative) Urine Nitrite Negative (Negative) Urine Bilirubin 1+ (Negative) Urine Urobilinogen 8 mg/dL (Negative) H Urine Leukocyte Esterase Negative /uL (Negative) Urine RBC 3 /hpf (0 - 3) Urine Microscopic WBC 2 /HPF (0-3) Urine Squamous Epithelial Cells Few /hpf (<5) Urine Bacteria None seen /hpf (None Seen) Urine Hyaline Casts Many /lpf (0 - 2) Urine Mucus Few (None Seen) Urine Glucose Normal mg/dL (Normal) Microbiology Microbiology Date/Time Source Procedure Growth Status 10/04/24 05:55 Nose MRSA Screen - Final Methicillin Resistant S.aureus Complete Assessment/Plan Assessment/Plan Acute hypoxic respiratory failure due to heart failure, improved Acute on chronic heart failure with low ejection fraction Acute pulmonary edema, due to systolic heart failure Dilated cardiomyopathy, methamphetamine induced, EF 20% Right-sided pleural effusion, likely due to heart failure Atrial fibrillation with rapid ventricular response Right pleural effusion status post thoracentesis Acute kidney injury hemodynamically mediated due to vasomotor nephropathy Chronic kidney disease MRSA of the nares Amphetamine use Hypertension Dyslipidemia Moderate tricuspid valve regurgitation Hypokalemia Plan Replace potassium Stopped the IV Lasix and metolazone Continue Aldactone Start p.o. Lasix Restart beta blockers Coreg low-dose Discontinue Lovenox Start Eliquis Lipitor Digoxin Jardiance Monitor in the hospital 1 more day Discharge planning for tomorrow Full code Advance directives discussed for 18 minutes Plan discussed with: Patient My Orders Orders - DAVID VOGEL MD Procedure Category Date Status Time Mupirocin 2% Oint PHA 10/06/24 In Process Mrsa Nares (Bactroban 22:00 Apixaban (Eliquis) PHA 10/06/24 Logged 22:00 Furosemide Tablet PHA 10/07/24 Logged (Lasix Tablet) 10:00 Date of Service: Oct 06, 2024 Billing Provider: DAVID VOGEL MD Common Visit Codes: [id number] INP/OBS CARE(HIGH) Secondary Visit Codes: [id number] CARE PLAN 30 MINUTES DAVID VOGEL MD Oct 06, 2024 11:23
--- NOTE | 2024-10-06 11:46 | DVHPN2 ---
Progress Note Date Seen: Oct 06, 2024 Medical Necessity Reason Pt with a Central, PICC or Fol: No Subjective Patient reports: Feels better Objective vital signs Vital Sign Date Time Temp Pulse Resp B/P (MAP) Pulse Ox O2 Delivery O2 Flow Rate FiO2 10/06/24 09:48 108/60 10/06/24 09:48 62 10/06/24 09:03 98.2 17 93 98.2 10/06/24 08:00 Nasal Cannula* 2 28 Total Intake and Output 10/05/24 10/05/24 10/06/24 15:00 23:00 07:00 Intake Total 1175 ml 800 ml Output Total 5100 ml 2550 ml Balance -3925 ml -1750 ml medications Current Medications Medications Dose Ordered Sig/Zainab Route Start Time Stop Time Status Last Admin Dose Admin Digoxin 0.125 mg DAILY PO 10/03/24 10:00 10/06/24 09:48 0.125 MG Atorvastatin Calcium 20 mg HS PO 10/03/24 22:00 10/05/24 22:55 20 MG Acetaminophen/ Hydrocodone Bitart 1 tab Q4HP PRN PO 10/03/24 01:45 10/03/24 15:03 1 TAB Ondansetron HCl 4 mg Q4HP PRN IV 10/03/24 01:45 Docusate Sodium 100 mg BIDPRN PRN PO 10/03/24 01:45 Acetaminophen 650 mg Q6HP PRN PO 10/03/24 01:45 Nitroglycerin 0.4 mg Q5MINP PRN SL 10/03/24 01:45 Morphine Sulfate 2 mg Q30M PRN IV 10/03/24 01:45 Empaglifozin 10 mg DAILY PO 10/04/24 10:00 10/06/24 09:47 10 MG Spironolactone 12.5 mg DAILY PO 10/04/24 10:00 10/06/24 09:49 12.5 MG Tamsulosin HCl 0.4 mg QPM PO 10/04/24 18:00 10/05/24 17:40 0.4 MG Mupirocin 1 applic BID EACHNOSTRI 10/06/24 22:00 10/11/24 21:59 Apixaban 5 mg BID PO 10/06/24 22:00 UNV Furosemide 40 mg DAILY PO 10/07/24 10:00 UNV Carvedilol 3.125 mg Q12HR PO 10/06/24 22:00 UNV Examination: GENERAL:Abnormal, HEENT:Abnormal, LUNGS:Abnormal, CVS:Abnormal, ABDOMEN:Abnormal laboratory and microbiology Laboratory Tests 10/06/24 05:04 10/04/24 05:35 Test 10/06/24 05:04 Range/Units Serum Glucose 85 74-106 mg/dL Microbiology Date/Time Source Procedure Growth Status 10/04/24 05:55 Nose MRSA Screen - Final Methicillin Resistant S.aureus Complete Problem List/Assessment/Plan Problem List/Assessment/Plan class IV HF ckd meth abuse drug abuse cont metolazone talked to RN, do not hold his lasix , was held in AM for no reason afib , resume doac hold BB for today if renal function worsens, will need inotrope therapy pt is aware his prognossi is poor and his response to diuretics are worse than before, he is non compliant, doesnt see MD outside of this hospital or obtain meds hold off on dobutamine 1 more day of aggressive diuresis plan for dc 10/06 if stable on po lasix, diuresed very well on 10/06 hold diuretics today cv cleared for dcd home cont HF meds signing off Plan discussed with: Patient Date of Service: Oct 06, 2024 Billing Provider: VALERY CALVIN MD Common Visit Codes: NOT BILLABLE VALERY CALVIN MD Oct 06, 2024 11:46
[2024-10-06 13:00] VITALS: BP 96/68; PULSE 84; RESP 19; TEMP 97.6; O2SAT 98
[2024-10-06 17:00] VITALS: BP 108/80; PULSE 50; RESP 19; TEMP 98; O2SAT 98
--- NOTE | 2024-10-06 19:55 | DVHPN2 ---
Progress Note - Dictate Date Seen: Oct 06, 2024 Medical Necessity Reason Pt with a Central, PICC or Fol: No Subjective Patient seen and examined at bedside. Remains on supplemental oxygen Overnight events reviewed. vital signs Vital Sign Date Time Temp Pulse Resp B/P (MAP) Pulse Ox O2 Delivery O2 Flow Rate FiO2 10/06/24 17:00 98.0 50 19 108/80 (89) 98 98.0 10/06/24 08:00 Nasal Cannula* 2 28 Total Intake and Output 10/05/24 10/05/24 10/06/24 15:00 23:00 07:00 Intake Total 1175 ml 800 ml Output Total 5100 ml 2550 ml Balance -3925 ml -1750 ml medications Current Medications Medications Dose Ordered Sig/Zainab Route Start Time Stop Time Status Last Admin Dose Admin Digoxin 0.125 mg DAILY PO 10/03/24 10:00 10/06/24 09:48 0.125 MG Atorvastatin Calcium 20 mg HS PO 10/03/24 22:00 10/05/24 22:55 20 MG Acetaminophen/ Hydrocodone Bitart 1 tab Q4HP PRN PO 10/03/24 01:45 10/03/24 15:03 1 TAB Ondansetron HCl 4 mg Q4HP PRN IV 10/03/24 01:45 Docusate Sodium 100 mg BIDPRN PRN PO 10/03/24 01:45 Acetaminophen 650 mg Q6HP PRN PO 10/03/24 01:45 Nitroglycerin 0.4 mg Q5MINP PRN SL 10/03/24 01:45 Morphine Sulfate 2 mg Q30M PRN IV 10/03/24 01:45 Empaglifozin 10 mg DAILY PO 10/04/24 10:00 10/06/24 09:47 10 MG Spironolactone 12.5 mg DAILY PO 10/04/24 10:00 10/06/24 09:49 12.5 MG Tamsulosin HCl 0.4 mg QPM PO 10/04/24 18:00 10/06/24 17:54 0.4 MG Mupirocin 1 applic BID EACHNOSTRI 10/06/24 22:00 10/11/24 21:59 Apixaban 5 mg BID PO 10/06/24 22:00 Furosemide 40 mg DAILY PO 10/07/24 10:00 Carvedilol 3.125 mg Q12HR PO 10/06/24 22:00 objective Gen.: Patient lying in bed in no apparent distress. On supplemental oxygen. Head: Normocephalic, atraumatic. Eyes: EOMI/PERRLA. Ears: Normal hearing. Normal anatomy. Neck/trachea: Trachea midline, supple. Nose: Normal external anatomy. Mouth: Moist mucous membranes. Chest: Decreased air entry bilaterally. No wheezing or rhonchi. Cardiovascular: Positive S1, positive S2. Regular rate and rhythm. Abdomen: Positive bowel sounds in all 4 quadrants. Soft, non-tender, non- distended. : Deferred. Rectal: Deferred. Skin: Warm, dry. Intact. Extremities: 2+ radial pulses bilaterally. No lower extremity edema. Neuro: Awake, alert, oriented x3. No gross motor or sensory deficits. Cranial nerves II through XII intact. Gait not assessed. laboratory and microbiology Laboratory Tests 10/06/24 05:04 10/04/24 05:35 Test 10/06/24 05:04 Range/Units Serum Glucose 85 74-106 mg/dL Assessment/Plan Impression: Acute hypoxemic respiratory failure Dependence on supplemental oxygen Pleural effusion, s/p right thoracentesis Atelectasis Congestive heart failure Cardiomyopathy Events Status post right-sided thoracentesis w/ 1.3 L of yellow fluid drained yesterday. Remains on supplemental oxygen, 2 LPM NC Taper O2 as tolerated Incentive spirometry Eliquis BID. Diurese with Lasix and metolazone. Monitor renal function Monitor electrolytes. Supplement as necessary. Monitor ins and outs. Labs and imaging reviewed. Rest of plan as noted below. Plan: Supplemental oxygen Titrate to keep O2 sats above 92%. Continue diuresis Supportive care w/ bronchodilators/oxygen/incentive spirometry Eliquis BID. Monitor renal function Monitor electrolytes. Supplement as necessary. Monitor ins and outs. Prognosis: Guarded given patient's multiple co-morbidities. Rest of plan per hospitalist and other consultants. Thank you Dr. Ornelas, for allowing me to participate in this patient's care. Further recommendations will depend on the patient's clinical course. Please do not hesitate to contact me if you have any questions or concerns. This medical document was created using an electronic medical record system with [employer] system. Although these documentations are being carefully reviewed, there may still be some phonetic and typographical changes. The errors are purely typographical, due to imperfection on the software program, and do not reflect any compromise in the patient's medical care. Dietary Evaluation Review Comments: Monitor PO intake to meet 75% of his needs, Avoid sodium Expected Outcomes/Goals: maintain fluid balance, meaint body weight Plan discussed with: Patient, Other (DAVID Montero) CIELO ZIMMERMAN MD Oct 06, 2024 19:55
[2024-10-06] MEDS ORDERED: CARVEDILOL 3.125 MG TAB PO SCH (22:00)
[2024-10-06] MEDS ORDERED: MUPIROCIN 2% OINT 15gm or 22gm FOR MRSA NARES EACHNOSTRI SCH (22:00)
[2024-10-06] MEDS ORDERED: APIXABAN 5 MG TAB PO SCH (22:00)
--- NOTE | 2024-10-07 08:40 | DVHDS2 ---
Discharge Summary Date of Admission October 03, 2024 at 01:37 Date of Discharge: Oct 06, 2024 Labs/Diagnostic Data: Laboratory Results Test 10/06/24 05:04 10/04/24 05:35 10/03/24 12:48 10/03/24 05:36 Sodium Level 136 mmol/L (136-145) Potassium Level 3.3 mmol/L (3.5-5.1) Chloride Level 88 mmol/L (98-107) Carbon Dioxide Level 39 mmol/L (20-31) Anion Gap 9 (5-15) Blood Urea Nitrogen 53 mg/dL (9-23) Creatinine 2.00 mg/dL (0.700-1.30) Glomerular Filtration Rate Calc 38 mL/min (>90) BUN/Creatinine Ratio 26.5 (10.0-20.0) Serum Glucose 85 mg/dL (74-106) Calcium Level 9.4 mg/dL (8.7-10.4) Total Bilirubin 2.4 mg/dL (0.2-1.0) Aspartate Amino Transferase (AST) 24 U/L (13-40) Alanine Aminotransferase (ALT) 17 U/L (7-40) Alkaline Phosphatase 202 U/L (46-116) Total Protein 6.2 g/dL (5.7-8.2) Albumin 3.8 g/dL (3.2-4.8) White Blood Count 9.4 10^3/uL (4.4-10.8) Red Blood Count 4.83 10^6/uL (4.5-5.90) Hemoglobin 12.4 g/dL (13.5-17.5) Hematocrit 38.8 % (41.0-53.0) Mean Corpuscular Volume 80.3 fL (80.0-100.0) Mean Corpuscular Hemoglobin 25.6 pg (28.0-32.0) Mean Corpuscular Hemoglobin Concent 31.9 g/dL (32.0-36.0) Red Cell Distribution Width 21.9 % (11.8-14.3) Platelet Count 286 10^3/uL (140-450) Mean Platelet Volume 8.7 fL (6.9-10.8) Neutrophils (%) (Auto) 70.7 % (37.0-80.0) Lymphocytes (%) (Auto) 12.2 % (10.0-50.0) Monocytes (%) (Auto) 13.6 % (0.0-12.0) Eosinophils (%) (Auto) 1.9 % (0.0-7.0) Basophils (%) (Auto) 1.6 % (0.0-2.0) Neutrophils # (Auto) 6.7 10 ^3/uL (1.6-8.6) Lymphocytes # (Auto) 1.1 10 ^3/uL (0.4-5.4) Monocytes # (Auto) 1.3 10 ^3/uL (0-1.3) Eosinophils # (Auto) 0.2 10 ^3/uL (0-0.8) Basophils # (Auto) 0.1 10 ^3/uL (0-0.2) Nucleated Red Blood Cells 0.1 % Magnesium Level 2.2 mg/dL (1.6-2.6) Lactic Acid Level 2.2 mmol/L (0.4-2.0) Troponin I High Sensitivity 45 ng/L (</=54) Test 10/03/24 02:30 10/03/24 00:40 Urine Color Dark-yellow (Yellow) Urine Clarity Clear (Clear) Urine pH 5.5 (5.0-9.0) Urine Specific [place] 1.018 (1.001-1.035) Urine Protein 1+ (Negative) Urine Ketones Negative (Negative) Urine Blood Negative /uL (Negative) Urine Nitrite Negative (Negative) Urine Bilirubin 1+ (Negative) Urine Urobilinogen 8 mg/dL (Negative) Urine Leukocyte Esterase Negative /uL (Negative) Urine RBC 3 /hpf (0 - 3) Urine Microscopic WBC 2 /HPF (0-3) Urine Squamous Epithelial Cells Few /hpf (<5) Urine Bacteria None seen /hpf (None Seen) Urine Hyaline Casts Many /lpf (0 - 2) Urine Mucus Few (None Seen) Urine Glucose Normal mg/dL (Normal) Urine Opiates Screen Neg (NEGATIVE) Urine Fentanyl Screen Neg (NEGATIVE) Urine Barbiturates Screen Neg (NEGATIVE) Urine Phencyclidine Screen Neg (NEGATIVE) Urine Amphetamines Screen Pos (NEGATIVE) Urine Benzodiazepines Screen Neg (NEGATIVE) Urine Cocaine Screen Neg (NEGATIVE) Urine Cannabinoids Screen Neg (NEGATIVE) B-Type Natriuretic Peptide 2805.18 pg/mL (0-100) Other Laboratory Tests 10/06/24 05:04 10/04/24 05:35 Brief Hx & Hospital Course: Final diagnoses: Acute hypoxic respiratory failure due to heart failure, improved Acute on chronic heart failure with low ejection fraction Acute pulmonary edema, due to systolic heart failure Dilated cardiomyopathy, methamphetamine induced, EF 20% Right-sided pleural effusion, likely due to heart failure Atrial fibrillation with rapid ventricular response Right pleural effusion status post thoracentesis Acute kidney injury hemodynamically mediated due to vasomotor nephropathy Chronic kidney disease MRSA of the nares Amphetamine use Hypertension Dyslipidemia Moderate tricuspid valve regurgitation Hypokalemia The patient's potassium was low, we ordered replacement Changed Lovenox to Eliquis Started PO Lasix We wanted him to stay one more day However he left AMA Condition at Discharge: Undetermined Final Diagnosis/Problems List Acute hypoxic respiratory failure due to heart failure, improved Acute on chronic heart failure with low ejection fraction Acute pulmonary edema, due to systolic heart failure Dilated cardiomyopathy, methamphetamine induced, EF 20% Right-sided pleural effusion, likely due to heart failure Atrial fibrillation with rapid ventricular response Right pleural effusion status post thoracentesis Acute kidney injury hemodynamically mediated due to vasomotor nephropathy Chronic kidney disease MRSA of the nares Amphetamine use Hypertension Dyslipidemia Moderate tricuspid valve regurgitation Hypokalemia Discharge Disposition: AMA SNF Discharge Will this Physician continue t: No Discharge Statement: "Patient was advised to return to the ER or call 911 if any headaches, dizziness, shortness of breath, chest pain, abdominal pain, bleeding, fevers, or worsening of medical condition. Patient was counseled about treatment plan, medications, possible side effects, patientverbalized understanding. All questions were answered to the best of my ability. This discharge took greater then 30 minutes in planning, reviewing documentation, counseling the patient, and discussing with other team members." ASSESSMENT ASSESSMENT Assessment Date of Service: Oct 06, 2024 Billing Provider: DAVID VOGEL MD Common Visit Codes: [id number] DISCH DAY >30min DAVID VOGEL MD Oct 07, 2024 08:40
[2024-10-07] MEDS ORDERED: FUROSEMIDE 20 MG TAB PO SCH (10:00)
== END 2024-10-06 20:19 | disposition left against medical advice (07) | DRG 133 ==
LOC: EDBD 00:10 → ER 00:12 → OVERFLOW 01:37 → TELE-CENTR 23:10
PROVIDERS: ADMIT Internal Medicine Geriatric Medicine; ATTEND Internal Medicine Geriatric Medicine
PROC: 0W993ZZ Drainage of Right Pleural Cavity, Percutaneous Approach (ICD-10-PCS; principal; 2024-10-05)
DX: J96.01 Acute respiratory failure with hypoxia (principal); N17.0 Acute kidney failure with tubular necrosis; I50.23 Acute on chronic systolic (congestive) heart failure; D68.59 Other primary thrombophilia; J91.8 Pleural effusion in other conditions classified elsewhere; I42.0 Dilated cardiomyopathy; I13.0 Hypertensive heart and chronic kidney disease with heart failure and stage 1 through stage 4 chronic kidney disease, or unspecified chronic kidney disease; Z99.81 Dependence on supplemental oxygen; Z79.01 Long term (current) use of anticoagulants; I07.1 Rheumatic tricuspid insufficiency; F15.10 Other stimulant abuse, uncomplicated; N18.9 Chronic kidney disease, unspecified; E78.5 Hyperlipidemia, unspecified; I48.91 Unspecified atrial fibrillation; N40.0 Benign prostatic hyperplasia without lower urinary tract symptoms; J98.11 Atelectasis; F17.210 Nicotine dependence, cigarettes, uncomplicated; E87.6 Hypokalemia; Z53.29 Procedure and treatment not carried out because of patient's decision for other reasons; Z82.49 Family history of ischemic heart disease and other diseases of the circulatory system; Z79.899 Other long term (current) drug therapy; Z79.84 Long term (current) use of oral hypoglycemic drugs; Z91.199 Patient's noncompliance with other medical treatment and regimen due to unspecified reason; Z88.0 Allergy status to penicillin; Z79.82 Long term (current) use of aspirin
CPT/HCPCS: 32555; 36415; 71045; 76604; 80048; 80053; 80307; 81001; 83605; 83735; 83880; 84132; 84484; 85025; 87081; 93005; 99291; G0378; J3490

== ENCOUNTER 2024-10-14 04:59 | Inpatient (IN) | payer OTHER ==
[~2024-10-14] VITALS: Ht 180.3 cm; Wt 83.5 kg
[~2024-10-14 04:59] MED LIST changes: -AUG875T PO; -CLIN1CAP70 PO; -DIGO1TAB48 PO; -DOXY-346 PO; -FURO1TAB31 PO; -TAMS-35 PO
--- NOTE | 2024-10-14 05:29 | ECG ---
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
[2024-10-14 05:45] VITALS: PULSE 93; RESP 20; O2SAT 96
[2024-10-14] MEDS: SODIUM CHLORIDE 0.9% 250 ML IV ONE ×2 (05:49→07:01)
[2024-10-14 06:18] LABS: Basophils # (auto) 0.1 10 ^3/uL (0-0.2); Chloride 103 mmol/L (98-107); Lymphocytes # (auto) 1.2 10 ^3/uL (0.4-5.4); Monocytes # (auto) 1.5 10 ^3/uL (0-1.3); Neutrophils # (auto) 6.6 10 ^3/uL (1.6-8.6); Nucleated Red Blood Cells % 0.1 %; Potassium 3.5 mmol/L (3.5-5.1); Sodium 136 mmol/L (136-145); White Blood Cell 9.6 10^3/uL (4.4-10.8)
[2024-10-14 06:19] LABS: Anion Gap 9 (5-15); Carbon Dioxide 24 mmol/L (20-31)
[2024-10-14 06:22] LABS: Basophils % (auto) 1.2 % (0.0-2.0); Eosinophils # (auto) 0.2 10 ^3/uL (0-0.8); Eosinophils % (auto) 1.9 % (0.0-7.0); Hematocrit 37.3 % (41.0-53.0); Lymphocytes % (auto) 12.7 % (10.0-50.0); Mean Corpuscular Hemoglobin 25.7 pg (28.0-32.0); Mean Corpuscular Hgb Conc. 32.1 g/dL (32.0-36.0); Monocytes % (auto) 15.5 % (0.0-12.0); Neutrophils % (auto) 68.7 % (37.0-80.0); Platelet Count (auto) 402 10^3/uL (140-450); Red Blood Cells 4.66 10^6/uL (4.5-5.90); Red Cell Distribution Width 22.5 % (11.8-14.3)
[2024-10-14 06:24] LABS: Glucose 101 mg/dL (74-106)
[2024-10-14 06:25] LABS: BUN/Creatinine Ratio 31.4 (10.0-20.0)
[2024-10-14 06:28] LABS: Blood Urea Nitrogen 33 mg/dL (9-23); Calcium 8.5 mg/dL (8.7-10.4); Lipase 54 U/L (12-53)
[2024-10-14] MEDS ORDERED: SODIUM CHLORIDE 0.9% 1,000 ML IV ONE (06:45)
[2024-10-14] MEDS: ONDANSETRON HCL 4 MG/2 ML VIAL IV ONE (07:01)
[2024-10-14] MEDS: SODIUM CHLORIDE 0.9% 1,000 ML IV ONE (07:01)
[2024-10-14] MEDS: MORPHINE SULFATE 4 MG/ML SYR/VIAL IV ONE (07:02)
--- NOTE | 2024-10-14 07:09 | ED.PDOC ---
GI ASSESSMENT HPI Comments 59 y/o M, BIBA, with PMHx of CHF, AFib, HLD, and HTN presents to the ED for CC of abdominal pain. Patient reports, he has been experiencing epigastric abdominal pain onset, x6 hours. Patient relays, that he has had an associated cough [id number]. Patient denies nausea, vomiting, diarrhea, fever, or chills. No other symptoms or modifying factors present at this time. Chief Complaint: Abdominal Pain Time Seen by MD: 06:55 Primary Care Provider: Dr. Matson Reviewed Notes: Nurses Notes, Civil Celebrant Notes, Medications, Allergies Allergies: Coded Allergies: Amiodarone (Verified Allergy, Unknown, 08/16/23) Metoprolol (Verified Allergy, Unknown, rapid decrease in blood pressure, 02/13/24) Penicillins (Verified Allergy, Unknown, 06/09/23) Home Meds Active Scripts Digoxin (Digoxin) 125 Mcg Tab, 125 MCG PO DAILY for 20 Days, #20 TAB Prov:RAJANI CLAROS RESDIENT 09/06/24 Acetaminophen (Acetaminophen) 500 Mg Tab, 500 MG PO QIDP, #30 TAB 0 Refills Prov:DONNELL BRITO 04/15/24 Carvedilol (COREG) 3.125 Mg Tab, 3.125 MG PO Q12HR for 30 Days, #60 TAB Prov:ANTIONE LUA 02/15/24 Spironolactone (Aldactone) 25 Mg Tab, 12.5 MG PO DAILY for 30 Days, #15 TAB 6 Refills Prov:JAH AYALA DO 08/19/23 Sacubitril-Valsartan (Entresto 24-26 mg) 1 Tab Tab, 1 TAB PO BID for 30 Days, #60 TAB 6 Refills Prov:JAH AYALA DO 08/19/23 Empagliflozin (Jardiance) 10 Mg Tab, 10 MG PO DAILY for 30 Days, #30 TAB 6 Refills Prov:JAH AYALA DO 08/19/23 Atorvastatin Calcium (ATORVASTATIN CALCIUM) 20 Mg Tab, 10 MG PO HS for 30 Days, #15 TAB 6 Refills Prov:JAH AYALA DO 08/19/23 Aspirin (Aspirin Low Dose) 81 Mg Tab, 81 MG PO DAILY for 30 Days, #30 TAB 6 Refills Prov:JAH AYALA DO 08/19/23 Reported Medications Potassium Chloride (Potassium Chloride ER) 10 Meq Tab, 1 TAB PO BID for 5 Days, #10 10/06/24 Tamsulosin Hcl (Tamsulosin Hcl) 0.4 Mg Cap, 1 CAP PO DAILY for 30 Days, #30 10/06/24 Apixaban Base (ELIQUIS) 5 Mg Tab, 1 TAB PO BID for 90 Days, #180 10/06/24 Furosemide (Furosemide) 40 Mg Tab, 1 TAB PO DAILY for 90 Days, #90 10/06/24 Information Source: Patient, Emergency Med Personnel Mode of Arrival: EMS Timing: Hours Duration: Since onset Prehospital treatment: None Quality: None Vomitus: None Stool: Normal Severity: Moderate Recent: None Recent Hx of: None Pain Location: Epigastric Modifying Factors: Nothing Associated sign and symptoms: Abdominal Pain Past Medical History PAST MEDICAL HISTORY: AFIB, CHF, High Lipids, HTN Surgical History: Hernia Repair Family History Family History: Reviewed,noncontributory to illness Social History Smoker: Cigarettes, Less Than 1 Pack/Day Alcohol: Occasionally Drugs: Methamphetamine Lives In: Home Constitutional: denies: chills, diaphoresis, fatigue, fever, malaise, sweats, weakness, others EENTM: denies: blurred vision, double vision, ear bleeding, ear discharge, ear drainage, ear pain, ear ringing, eye pain, eye redness, hearing loss, mouth pain, mouth swelling, nasal discharge, nose bleeding, nose congestion, nose pain, photophobia, tearing, throat pain, throat swelling, voice changes, others Respiratory: reports: cough; denies: hemoptysis, orthopnea, SOB at rest, shortness of breath, SOB with excertion, stridor, wheezing, others Cardiovascular: denies: chest pain, dizzy spells, diaphoresis, Dyspnea on exertion, edema, irregular heart beat, left arm pain, lightheadedness, palpitations, PND, syncope, others Gastrointestinal: reports: abdominal pain; denies: abdomen distended, blood streaked bowels, constipated, diarrhea, dysphagia, difficulty swallowing, hem atemesis, melena, nausea, poor appetite, poor fluid intake, rectal bleeding, rectal pain, vomiting, others Genitourinary: denies: burning, dysuria, flank pain, frequency, hematuria, incontinence, penile discharge, penile sore, pain, testicle pain, testicle swelling, urgency, others Neurological: denies: dizziness, fainting, headache, left sided numbness, left sided weakness, numbness, paresthesia, pre-existing deficit, right sided numbness, right sided weakness, seizure, speech problems, tingling, tremors, weakness, others Musculoskeletal: denies: back pain, gout, joint pain, joint swelling, muscle pain, muscle stiffness, neck pain, others Integumetry: denies: bruises, change in color, change in hair/nails, dryness, laceration, lesions, lumps, rash, wounds, others Allergic/Immunocompromised: denies: Difficulty Healing, Frequent Infections, Hives, Itching, others Hematologic/Lymphatic: denies: anemia, blood clots, easy bleeding, easy bruising, swollen glands, others Endocrine: denies: excessive hunger, excessive sweating, excessive thirst, excessive urination, flushing, intolerance to cold, intolerance to heat, unexplained weight gain, unexplained weight loss, others Psychiatric: denies: anxiety, bipolar disorder, depression, hopeless, panic disorder, schizophrenia, sleepless, suicidal, others All Other Systems: Reviewed and Negative Physical Exam General Appearance: Mild Distress HEENT: Pharynx Normal Neck: Normal Inspection Respiratory: No Respiratory Distress Cardiovascular: Irregular, Tachycardia Breast Exam: Deferred Gastrointestinal: Other (epigastric tenderness) Genitalia: Deferred Pelvic: Deferred Rectal: Deferred Extremities: No pedal edema Neurologic: No Motor Deficits Cerebellar Function: NOT DONE Reflexes: NOT DONE Skin: Normal Color Lymphatic: NOT DONE Was a procedure done? Was a procedure done?: No GI differential Dx Differential Diagnosis: Diverticular disease, Hernia, Inflammatory BD, Ischemic Bowel, Pancreatitis X-Ray, Labs, Meds, VS Vital Signs Date Time Temp Pulse Resp B/P (MAP) Pulse Ox O2 Delivery O2 Flow Rate FiO2 10/14/24 07:32 62 15 116/62 10/14/24 07:30 102 19 97 Nasal Cannula* 2 28 10/14/24 07:30 102 19 116/62 (80) 97 10/14/24 07:06 97 24 116/62 (80) 98 10/14/24 07:02 97 24 116/62 10/14/24 05:45 93 20 96 Room Air* 0 21 10/14/24 05:45 97.5 101 20 89/50 (63) 96 97.5 10/14/24 05:14 98.1 105 18 164/112 (129) 95 98.1 10/14/24 05:01 105 Lab Test 10/14/24 08:06 10/14/24 05:40 Range/Units Urine Color Yellow Yellow Urine Clarity Clear Clear Urine pH 5.0 5.0-9.0 Urine Specific [place] 1.022 1.001-1.035 Urine Protein Trace H Negative Urine Ketones Negative Negative Urine Blood Negative Negative /uL Urine Nitrite Negative Negative Urine Bilirubin Negative Negative Urine Urobilinogen 2 H Negative mg/dL Urine Leukocyte Esterase Negative Negative /uL Urine RBC None seen 0 - 3 /hpf Urine Microscopic WBC < 1 0-3 /HPF Urine Squamous Epithelial Cells None seen <5 /hpf Urine Bacteria None seen None Seen /hpf Urine Glucose 3+ H Normal mg/dL White Blood Count 9.6 4.4-10.8 10^3/uL Red Blood Count 4.66 4.5-5.90 10^6/uL Hemoglobin 12.0 L 13.5-17.5 g/dL Hematocrit 37.3 L 41.0-53.0 % Mean Corpuscular Volume 80.0 80.0-100.0 fL Mean Corpuscular Hemoglobin 25.7 L 28.0-32.0 pg Mean Corpuscular Hemoglobin Concent 32.1 32.0-36.0 g/dL Red Cell Distribution Width 22.5 H 11.8-14.3 % Platelet Count 402 140-450 10^3/uL Mean Platelet Volume 7.9 6.9-10.8 fL Neutrophils (%) (Auto) 68.7 37.0-80.0 % Lymphocytes (%) (Auto) 12.7 10.0-50.0 % Monocytes (%) (Auto) 15.5 H 0.0-12.0 % Eosinophils (%) (Auto) 1.9 0.0-7.0 % Basophils (%) (Auto) 1.2 0.0-2.0 % Neutrophils # (Auto) 6.6 1.6-8.6 10 ^3/uL Lymphocytes # (Auto) 1.2 0.4-5.4 10 ^3/uL Monocytes # (Auto) 1.5 H 0-1.3 10 ^3/uL Eosinophils # (Auto) 0.2 0-0.8 10 ^3/uL Basophils # (Auto) 0.1 0-0.2 10 ^3/uL Nucleated Red Blood Cells 0.1 % Sodium Level 136 136-145 mmol/L Potassium Level 3.5 3.5-5.1 mmol/L Chloride Level 103 98-107 mmol/L Carbon Dioxide Level 24 20-31 mmol/L Anion Gap 9 5-15 Blood Urea Nitrogen 33 H 9-23 mg/dL Creatinine 1.05 0.700-1.30 mg/dL Glomerular Filtration Rate Calc 82 >90 mL/min BUN/Creatinine Ratio 31.4 H 10.0-20.0 Serum Glucose 101 74-106 mg/dL Calcium Level 8.5 L 8.7-10.4 mg/dL Troponin I High Sensitivity 32 </=54 ng/L Lipase 54 H 12-53 U/L Current Medications Medications (Trade) Dose Ordered Sig/Zainab Route Start Time Stop Time Status Last Admin Sodium Chloride 250 ml @ 250 mls/hr Q1H ONCE IV 10/14/24 05:45 10/14/24 06:44 DC 10/14/24 05:49 Sodium Chloride 1,000 ml @ 250 mls/hr Q4H ONCE IV 10/14/24 07:00 10/14/24 10:59 10/14/24 07:01 Ondansetron HCl (Zofran) 4 mg ONCE ONCE IV 10/14/24 07:00 10/14/24 07:01 DC 10/14/24 07:01 Morphine Sulfate 4 mg ONCE ONCE IV 10/14/24 07:00 10/14/24 07:01 [place] 10/14/24 07:02 [place] [address] Ph: [phone] DIAGNOSTIC IMAGING Diagnostic Imaging Report : [id number] Signed PATIENT: CARMEN BERNALACCT: [id number] UNIT: [id number] : 1965 LOC: ER ROOM / BED: / AGE / SEX: 59 / M ADM STATUS: REG ER SERVICE 7 ORDERING PHYSICIAN: DAVIDA MALLOY MD PROCEDURE(s): CXRP - CHEST PORTABLE REASON: weakness ORDER NUMBER(s): [id number], ACCESSION NUMBER(s): [id number] CLINICAL INFORMATION: 59 years old, Male; weakness. TECHNIQUE: Single AP portable chest radiograph was obtained. COMPARISON: XY CHEST PORTABLE on DOS: 10/05/24, XY CHEST PORTABLE on DOS: 10/03/24, XY CHEST PORTABLE on DOS: 09/05/24 FINDINGS: Lungs: Atelectasis in the lung bases. Cardiac: Moderate cardiomegaly, unchanged. Pulmonary vasculature: Mild prominence of the pulmonary vasculature. Mediastinum/rodrigo: Unremarkable. Bones: No acute osseous abnormality identified. Other: No other significant findings. IMPRESSION: 1. Cardiomegaly and mild prominence of the pulmonary vasculature suggesting a degree of pulmonary vascular congestion in the appropriate clinical setting. 2. Mild bibasilar atelectasis. No focal consolidation. ATED BY: WINSTON CHO DO DICTATED DATE/TIME: 10/14/24717 SIGNED BY: WINSTON CHO DO SIGNED DATE/TIME: 10/14/24717 CC: Time of 1ST Reevaluation: 07:25 Reevaluation 1ST: Unchanged Patient Education/Counseling: Diagnosis, Treatment Family Education/Counseling: No Family Present Departure 1 Departure Time of Disposition: 08:38 (Patient presented with abdominal pain that was concerning for possible appendicits, gastritis, cholecystitis, colitis, gastroenteritis, sbo, or orther possible surgical emergency. Data: 1. I ordered and reviewed the result of at least 3 labs including a CBC, BMP, and Urinalysis. 2. I independently interpreted the following tests: CT Abdoment and Pelvis is concerning for umbilical hernia.Risk:This patient has a high risk of morbidity due to further diagnostic testing or treatment and may suffer from an acute abdominal process disorder. Workup reveals intractable abdominal pain and umbilical hernia and patient should be admitted for further workup. and possible expert consultation. ) Impression: Primary Impression: Intractable abdominal pain Additional Impressions: Umbilical hernia Qualified Codes: K42.9 - Umbilical hernia without obstruction or gangrene Projectile vomiting with nausea Disposition: ADMITTED INPATIENT Admit to: Med Surg Condition: Guarded Critical Care Note Critical Care Time?: Yes Critical care comment: Intractable abdominal pain Authorized and Performed by: Davida Malloy MD Total critical care time: Approximately 39 minutes Due to a high probability of clinically significant, life threatening deterioration, the patient required my highest level of preparedness to intervene emergently and I personally spent this critical care time directly and personally managing the patient. This critical care time included obtaining a history; examining the patient; pulse oximetry; ordering and review of studies; arranging urgent treatment with development of a management plan; evaluation of patient's response to treatment; frequent reassessment; and, discussions with other providers. This critical care time was performed to assess and manage the high probability of imminent, life-threatening deterioration that could result in multi-organ failure. It was exclusive of separately billable procedures and treating other patients and teaching time. Please see my other sections and the rest of the note for further information on patient assessment and treatment. Stability Stability form required: No Heart Score Heart Score: Heart Score Response (Comments) Value History N/A 0 EKG N/A 0 Age N/A 0 Risk Factors N/A 0 Troponin N/A 0 Total 0 I personally scribed for DAVIDA MALLOY MD ([email or web address]) on 10/14/24 at 07:09. Electronically submitted by Misty Wong ([email or web address]). I personally scribed for DAVIDA MALLOY MD ([email or web address]) on 10/14/24 at 07:29. Electronically submitted by Misty Wong ([email or web address]). DAVIDA MALLOY MD Oct 14, 2024 07:09
--- NOTE | 2024-10-14 07:20 | DVH ---
CLINICAL INFORMATION: 59 years old, Male; weakness. TECHNIQUE: Single AP portable chest radiograph was obtained. COMPARISON: XY CHEST PORTABLE on DOS: 10/05/24, XY CHEST PORTABLE on DOS: 10/03/24, XY CHEST PORTABLE on DOS: 09/05/24 FINDINGS: Lungs: Atelectasis in the lung bases. Cardiac: Moderate cardiomegaly, unchanged. Pulmonary vasculature: Mild prominence of the pulmonary vasculature. Mediastinum/rodrigo: Unremarkable. Bones: No acute osseous abnormality identified. Other: No other significant findings. IMPRESSION: 1. Cardiomegaly and mild prominence of the pulmonary vasculature suggesting a degree of pulmonary vas cular congestion in the appropriate clinical setting. 2. Mild bibasilar atelectasis. No focal consolidation.
[2024-10-14 07:30] VITALS: PULSE 102; RESP 19; O2SAT 97
[2024-10-14] MEDS: IOHEXOL 300 MG/ML 100ML BOTTLE IJ ONE (07:50)
[2024-10-14 08:12] LABS: Urine Bacteria None Seen /hpf (None Seen)
--- NOTE | 2024-10-14 08:14 | DVH ---
EXAM: CT Abdomen and Pelvis With Intravenous Contrast CLINICAL INDICATION: abdominal pain TECHNIQUE: Axial computed tomography images of the abdomen and pelvis with intravenous contrast. is CT exam was performed using one or more of the following dose reduction techniques: automated exp osure control, adjustment of the mA and/or kV according to patient size, and/or use of iterative felix nstruction technique. CONTRAST: RADIATION DOSE: CTDIvol = 9.64 mGy, DLP = 520.91 mGy-cm COMPARISON: None FINDINGS: LUNG BASES: See below. PLEURAL SPACE: Bilateral pleural effusions with dependent atelectasis, bilaterally. HEART: Cardiomegaly. ABDOMEN: LIVER: Hepatomegaly with fatty infiltration. GALLBLADDER AND BILE DUCTS: Unremarkable. No calcified stones. No ductal dilation. PANCREAS: Unremarkable. No mass. No ductal dilation. SPLEEN: Unremarkable. No splenomegaly. ADRENALS: Unremarkable. No mass. KIDNEYS AND URETERS: Unremarkable. No stones within either kidney. No hydronephrosis. STOMACH AND BOWEL: Fecal retention in the colon consistent with constipation. No obstruction. No mucosal thickening. PELVIS: APPENDIX: Normal appendix. BLADDER: Unremarkable. No mass. REPRODUCTIVE: Unremarkable as visualized. ABDOMEN and PELVIS: INTRAPERITONEAL SPACE: Unremarkable. No free air. No significant fluid collection. BONES/JOINTS: No acute fracture. No dislocation. SOFT TISSUES: Umbilical hernia containing fat. Left inguinal hernia. VASCULATURE: Scattered calcified atherosclerotic disease of aorta. No abdominal aortic aneurysm. LYMPH NODES: Unremarkable. No enlarged lymph nodes. OTHER FINDINGS: . . . . IMPRESSION: 1. Normal appendix. 2. Hepatomegaly with fatty infiltration. 3. Umbilical hernia containing fat. 4. Fecal retention in the colon consistent with constipation. 5. No obstructive uropathy. 6. Left inguinal hernia.
[2024-10-14 08:34] LABS: Urine Blood Negative /uL (Negative); Urine Clarity Clear (Clear); Urine Color Yellow (Yellow); Urine Protein, UAD TRACE (Negative); Urine Specific Gravity 1.022 (1.001-1.035); Urine Squamous Epithelial Cell None Seen /hpf (<5); Urine Urobilinogen 2 mg/dL (Negative); Urine WBC < 1 /HPF (0-3)
[2024-10-14] MEDS ORDERED: MORPHINE SULFATE INJ 2 MG/ml SYRG IV PRN (09:45)
[2024-10-14] MEDS ORDERED: ACETAMINOPHEN 325 MG TAB PO PRN (09:45)
[2024-10-14] MEDS ORDERED: ONDANSETRON HCL 4 MG/2 ML VIAL IV PRN (09:45)
[2024-10-14] MEDS ORDERED: HYDROcodone-ACET 5/325MG TAB PO PRN (09:45)
[2024-10-14] MEDS ORDERED: DOCUSATE SOD 100 MG CAP PO PRN (09:45)
[2024-10-14] MEDS: TAMSULOSIN HYDROCHLORIDE 0.4 MG CAP PO SCH (10:00)
[2024-10-14] MEDS: FUROSEMIDE 20 MG/2 ML VIAL IV ONE (10:00)
--- NOTE | 2024-10-14 10:00 | DVHHP2 ---
History of Present Illness Reason for Visit: Abdominal pain History of Present Illness Gilbert Ozuna is a 59-year-old male with past medical history of CHF, atrial fibrillation, hypertension, pre-diabetes, chronic kidney disease, and BPH, who came in for abdominal pain. Patient states he has had a cough for about 6 months. His coughing has caused an umbilical hernia. He states it is usually around the size of golf ball. It doesn't hurt, it will pop out when he coughs and he is able to manually reduce it. Yesterday he was coughing, felt a pop, and extreme pain in his umbilical region. There is a small mass, smaller than normal, and too painful for him to reduce, prompting him to come to the ER. Cardiovascular: AFIB, CHF, HTN Renal/: Chronic renal insuff, Benign prostatic enlarg. Past Surgical History: Hernia Repair Smoke: No ALCOHOL: occassional Drugs: None Lives: with Family Domestic Violence: Neg Review of Systems Constitutional: No: Fever, Chills, Sweats, Weakness, Malaise, Other Eyes: No: Pain, Vision change, Conjunctivae inflammation, Eyelid inflammation, Other, Redness ENT: No: Ear pain, Ear discharge, Nose pain, Nose discharge, Nose congestion, Mouth pain, Mouth swelling, Throat pain, Throat swelling, Other Respiratory: Cough, Sputum; No: Dry, Shortness of breath, SOB with excertion, Wheezing, Hemoptysis, Pleuritic Pain, Wheezing, Other Cardiovascular: No: Chest Pain, Palpitations, Orthopnea, Paroxysmal Noc. Dyspnea, Edema, Lt Headedness, Other Gastrointestinal: Abdominal Pain; No: Nausea, Vomiting, Diarrhea, Constipation, Melena, Hematochezia, Other Genitourinary: No Dysuria, No Frequency, No Incontinence, No Hematuria, No Retention, No Other Musculoskeletal: No: other, neck pain, shoulder pain, arm pain, back pain, hand pain, leg pain, foot pain Skin: No: Rash, Lesions, Jaundice, Bruising, Other Neurological: No: Weakness, Numbness, Incoordination, Change in speech, Confusion, Seizures, Other Allergies: Coded Allergies: Amiodarone (Verified Allergy, Unknown, 08/16/23) Metoprolol (Verified Allergy, Unknown, rapid decrease in blood pressure, 02/13/24) Penicillins (Verified Allergy, Unknown, 06/09/23) Medications Current Medications Medications Dose Ordered Sig/Zainab Route Start Time Stop Time Status Last Admin Dose Admin Sodium Chloride 10 ml Q8HR IV 10/14/24 14:00 UNV Acetaminophen/ Hydrocodone Bitart 1 tab Q4HP PRN PO 10/14/24 09:45 UNV Ondansetron HCl 4 mg Q4HP PRN IV 10/14/24 09:45 UNV Docusate Sodium 100 mg BIDPRN PRN PO 10/14/24 09:45 UNV Acetaminophen 650 mg Q6HP PRN PO 10/14/24 09:45 UNV Morphine Sulfate 2 mg Q4HPRN PRN IV 10/14/24 09:45 UNV Empaglifozin 10 mg DAILY PO 10/14/24 10:00 UNV Tamsulosin HCl 0.4 mg DAILY PO 10/14/24 10:00 UNV Exam Vital Signs Vital Signs Date Time Temp Pulse Resp B/P (MAP) Pulse Ox O2 Delivery O2 Flow Rate FiO2 10/14/24 09:00 98 17 98/73 (81) 98 10/14/24 07:30 Nasal Cannula* 2 28 10/14/24 05:45 97.5 97.5 General Appearance: Alert, Oriented X3, Cooperative, mild distress HEENT: Atraumatic, PERRLA Respiratory: Other (Diminshed breath sounds ) Cardiovascular: Regular rate, Normal S1, Normal S2 Abdominal: Normal bowel sounds, Other (umbilical pain with small proturding mass noted) Extremities: No clubbing, No cyanosis, No edema, Normal pulses Skin: No rashes, No breakdown, No significant lesion Neuro: Normal gait, Normal speech, Strength at 5/5 X4 ext, Normal tone Psych/Mental Status: Mental status NL, Mood NL Labs/Xrays Labs Test 10/14/24 08:06 10/14/24 05:40 Range/Units Urine Color Yellow Yellow Urine Clarity Clear Clear Urine pH 5.0 5.0-9.0 Urine Specific [place] 1.022 1.001-1.035 Urine Protein Trace H Negative Urine Ketones Negative Negative Urine Blood Negative Negative /uL Urine Nitrite Negative Negative Urine Bilirubin Negative Negative Urine Urobilinogen 2 H Negative mg/dL Urine Leukocyte Esterase Negative Negative /uL Urine RBC None seen 0 - 3 /hpf Urine Microscopic WBC < 1 0-3 /HPF Urine Squamous Epithelial Cells None seen <5 /hpf Urine Bacteria None seen None Seen /hpf Urine Glucose 3+ H Normal mg/dL White Blood Count 9.6 4.4-10.8 10^3/uL Red Blood Count 4.66 4.5-5.90 10^6/uL Hemoglobin 12.0 L 13.5-17.5 g/dL Hematocrit 37.3 L 41.0-53.0 % Mean Corpuscular Volume 80.0 80.0-100.0 fL Mean Corpuscular Hemoglobin 25.7 L 28.0-32.0 pg Mean Corpuscular Hemoglobin Concent 32.1 32.0-36.0 g/dL Red Cell Distribution Width 22.5 H 11.8-14.3 % Platelet Count 402 140-450 10^3/uL Mean Platelet Volume 7.9 6.9-10.8 fL Neutrophils (%) (Auto) 68.7 37.0-80.0 % Lymphocytes (%) (Auto) 12.7 10.0-50.0 % Monocytes (%) (Auto) 15.5 H 0.0-12.0 % Eosinophils (%) (Auto) 1.9 0.0-7.0 % Basophils (%) (Auto) 1.2 0.0-2.0 % Neutrophils # (Auto) 6.6 1.6-8.6 10 ^3/uL Lymphocytes # (Auto) 1.2 0.4-5.4 10 ^3/uL Monocytes # (Auto) 1.5 H 0-1.3 10 ^3/uL Eosinophils # (Auto) 0.2 0-0.8 10 ^3/uL Basophils # (Auto) 0.1 0-0.2 10 ^3/uL Nucleated Red Blood Cells 0.1 % Sodium Level 136 136-145 mmol/L Potassium Level 3.5 3.5-5.1 mmol/L Chloride Level 103 98-107 mmol/L Carbon Dioxide Level 24 20-31 mmol/L Anion Gap 9 5-15 Blood Urea Nitrogen 33 H 9-23 mg/dL Creatinine 1.05 0.700-1.30 mg/dL Glomerular Filtration Rate Calc 82 >90 mL/min BUN/Creatinine Ratio 31.4 H 10.0-20.0 Serum Glucose 101 74-106 mg/dL Calcium Level 8.5 L 8.7-10.4 mg/dL Troponin I High Sensitivity 32 </=54 ng/L Lipase 54 H 12-53 U/L EXAM: CT Abdomen and Pelvis With Intravenous Contrast FINDINGS: LUNG BASES: See below. PLEURAL SPACE: Bilateral pleural effusions with dependent atelectasis, bilaterally. HEART: Cardiomegaly. ABDOMEN: LIVER: Hepatomegaly with fatty infiltration. GALLBLADDER AND BILE DUCTS: Unremarkable. No calcified stones. No ductal dilation. PANCREAS: Unremarkable. No mass. No ductal dilation. SPLEEN: Unremarkable. No splenomegaly. ADRENALS: Unremarkable. No mass. KIDNEYS AND URETERS: Unremarkable. No stones within either kidney. No hydronephrosis. STOMACH AND BOWEL: Fecal retention in the colon consistent with constipation. No obstruction. No mucosal thickening. PELVIS: APPENDIX: Normal appendix. BLADDER: Unremarkable. No mass. REPRODUCTIVE: Unremarkable as visualized. ABDOMEN and PELVIS: INTRAPERITONEAL SPACE: Unremarkable. No free air. No significant fluid collection. BONES/JOINTS: No acute fracture. No dislocation. SOFT TISSUES: Umbilical hernia containing fat. Left inguinal hernia. VASCULATURE: Scattered calcified atherosclerotic disease of aorta. No abdominal aortic aneurysm. LYMPH NODES: Unremarkable. No enlarged lymph nodes. OTHER FINDINGS: . . . . IMPRESSION: 1. Normal appendix. 2. Hepatomegaly with fatty infiltration. 3. Umbilical hernia containing fat. 4. Fecal retention in the colon consistent with constipation. 5. No obstructive uropathy. 6. Left inguinal hernia. TECHNIQUE: Single AP portable chest radiograph was obtained. FINDINGS: Lungs: Atelectasis in the lung bases. Cardiac: Moderate cardiomegaly, unchanged. Pulmonary vasculature: Mild prominence of the pulmonary vasculature. Mediastinum/rodrigo: Unremarkable. Bones: No acute osseous abnormality identified. Other: No other significant findings. IMPRESSION: 1. Cardiomegaly and mild prominence of the pulmonary vasculature suggesting a degree of pulmonary vascular congestion in the appropriate clinical setting. 2. Mild bibasilar atelectasis. No focal consolidation. 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 Procedure Category Date Status Time Lactulose Oral PHA 10/14/24 Logged 09:45 Admit ADMIT 10/14/24 Transmitted 09:45 Code Status CODE 10/14/24 Transmitted 09:45 Sodium Chloride Lock PHA 10/14/24 Transmitted (Saline Lock Ns) 14:00 Hydrocodone-Acet PHA 10/14/24 Transmitted 5/325mg Tab ([place] 09:45 Ondansetron Hcl PHA 10/14/24 Transmitted (Zofran) 09:45 Docusate Sodium PHA 10/14/24 Transmitted Capsule (Colace 09:45 Complete Blood Count LAB 10/15/24 Verified 04:00 Comprehensive LAB 10/15/24 Verified Metabolic Panel 04:00 Cardiac DIET 10/14/24 Transmitted Diet-2gna,Lofat,Lochol Lunch Condition: Serious MICHAEL 10/14/24 In Process 09:45 Acetaminophen Tablet PHA 10/14/24 Transmitted (Tylenol Tablet) 09:45 Morphine Sulfate PHA 10/14/24 Transmitted Injection 09:45 Empagliflozin PHA 10/14/24 Transmitted (Jardiance) 10:00 Tamsulosin PHA 10/14/24 Transmitted Hydrochloride (Flomax) 10:00 Date of Service: Oct 14, 2024 Billing Provider: RUSTY CASON Common Visit Codes: [id number] INP/OBS CARE (MOD) RUSTY CASON Oct 14, 2024 10:00
[2024-10-14] MEDS: LACTULOSE 20Gm/30ML SOLN PO ONE (10:08)
[2024-10-14] MEDS: EMPAGLIFLOZIN 10 MG TAB PO SCH (10:08)
[2024-10-14 10:32] VITALS: BP 89/48; PULSE 92; RESP 16; TEMP 97.8; O2SAT 95
[2024-10-14] MEDS ORDERED: SODIUM CHLORIDE 0.9% 1,000 ML IV SCH (11:30)
[2024-10-14 11:40] VITALS: BP 95/48; PULSE 57; PULSE 75; RESP 16; TEMP 97; O2SAT 95; O2SAT 96
[2024-10-14 13:00] VITALS: BP 108/97; PULSE 57; RESP 16; TEMP 97.6; O2SAT 96
[2024-10-14 13:05] LABS: Amphetamine Screen, Urine Neg (NEGATIVE); Barbiturate Scree,Urine Neg (NEGATIVE); Benzodiazephine Screen, Urine Neg (NEGATIVE); Cannabinoid Screen, Urine Neg (NEGATIVE); Cocaine Screen, Urine Neg (NEGATIVE); Opiate Scree,Urine Neg (NEGATIVE); Phencyclidine Screen, Urine Neg (NEGATIVE)
--- NOTE | 2024-10-14 13:58 | DVHCONRES ---
NENO QUESADA RESIDENT 10/14/24 1358: Date Seen: Oct 14, 2024 Resident Creating Document: NENO QUESADA RESIDENT Reason for Consultation Cardiac clearance for preop History of Present Illness Patient is a 51-year-old male with past medical history of heart failure with reduced ejection fraction 10% improved to 20% in August 2024, amphetamine cardiomyopathy, history of recurrent PE and DVT, atrial fibrillation diagnosed 15 years ago, hypertension, prediabetes, polysubstance abuse, questionable chronic kidney disease and BPH who comes in due to abdominal pain. According to the patient, he has had umbilical hernia usually on the size of a golf ball, without pain and manually reducible. However, according to the patient with a past 6 months he has been having productive cough with whitish sputum which is caused his umbilical hernia to enlarge, yesterday after having a coughing spell he felt a popping sensation along with severe pain in the umbilical area, at this point per patient mass was not reducible, which is what prompted this visit to the hospital. CT abdomen pelvis showed umbilical hernia containing fat, bilateral pleural effusions with dependent atelectasis, cardiomegaly with a hepatomegaly with fatty infiltration and a left inguinal hernia. Cardiology is consulted for preoperative evaluation. Per patient, he is able to climb up to 2 flights of stairs without any shortness of breath or chest pain limiting him. Past Medical History heart failure with reduced ejection fraction 20% in August 2024, atrial fibri llation diagnosed 15 years ago, hypertension, prediabetes, questionable chronic kidney disease and BPH Past Surgical History Left hand surgery as a child Family History: FH: myocardial infarction G8 FATHER FH: natural G8 MOTHER 19 CHILD Social History Smoking: Quit in 2023, prior to that was smoking half a pack per day for 40 years Alcohol: Reduced usage now, prior history of heavy alcohol use daily 1 year ago Drugs: Currently denies with a negative UDS, however, prior history of prolonged and heavy methamphetamine abuse Allergies: Coded Allergies: Amiodarone (Verified Allergy, Unknown, 08/16/23) Metoprolol (Verified Allergy, Unknown, rapid decrease in blood pressure, 02/13/24) Penicillins (Verified Allergy, Unknown, 06/09/23) Home Meds Active Scripts Digoxin (Digoxin) 125 Mcg Tab, 125 MCG PO DAILY for 20 Days, #20 TAB Prov:RAJANI CLAROSENT 09/06/24 Acetaminophen (Acetaminophen) 500 Mg Tab, 500 MG PO QIDP, #30 TAB 0 Refills Prov:DONNELL BRITO 04/15/24 Carvedilol (COREG) 3.125 Mg Tab, 3.125 MG PO Q12HR for 30 Days, #60 TAB Prov:[facility] 02/15/24 Spironolactone (Aldactone) 25 Mg Tab, 12.5 MG PO DAILY for 30 Days, #15 TAB 6 Refills Prov:JAH AYALA 08/19/23 Sacubitril-Valsartan (Entresto 24-26 mg) 1 Tab Tab, 1 TAB PO BID for 30 Days, #60 TAB 6 Refills Prov:JAH AYALA 08/19/23 Empagliflozin (Jardiance) 10 Mg Tab, 10 MG PO DAILY for 30 Days, #30 TAB 6 Refills Prov:AYALAJAH Quinn [facility] 08/19/23 Atorvastatin Calcium (ATORVASTATIN CALCIUM) 20 Mg Tab, 10 MG PO HS for 30 Days, #15 TAB 6 Refills Prov:JAH AYALA 08/19/23 Aspirin (Aspirin Low Dose) 81 Mg Tab, 81 MG PO DAILY for 30 Days, #30 TAB 6 Refills Prov:JAH AYALA 08/19/23 Reported Medications Potassium Chloride (Potassium Chloride ER) 10 Meq Tab, 1 TAB PO BID for 5 Days, #10 10/06/24 Tamsulosin Hcl (Tamsulosin Hcl) 0.4 Mg Cap, 1 CAP PO DAILY for 30 Days, #30 10/06/24 Apixaban Base (ELIQUIS) 5 Mg Tab, 1 TAB PO BID for 90 Days, #180 10/06/24 Furosemide (Furosemide) 40 Mg Tab, 1 TAB PO DAILY for 90 Days, #90 10/06/24 Current Medications Current Medications Medications (Trade) Dose Ordered Sig/Zainab Route PRN Reason Start Time Stop Time Status Last Admin Sodium Chloride (Saline Lock Ns) 10 ml Q8HR IV 10/14/24 14:00 Acetaminophen/ Hydrocodone Bitart ([place] 5/325MG Tab) 1 tab Q4HP PRN PO MODERATE PAIN (4-6 PAIN SCALE) 10/14/24 09:45 Ondansetron HCl (Zofran) 4 mg Q4HP PRN IV NAUSEA / VOMITING 10/14/24 09:45 Docusate Sodium (Colace Capsule) 100 mg BIDPRN PRN PO FOR CONSTIPATION 10/14/24 09:45 Acetaminophen (Tylenol Tablet) 650 mg Q6HP PRN PO PAIN SCALE 1-3 OR TEMP>100.4 10/14/24 09:45 Morphine Sulfate 2 mg Q4HPRN PRN IV SEVERE PAIN (7-10 PAIN SCALE) 10/14/24 09:45 UNV Empaglifozin (Jardiance) 10 mg DAILY PO 10/14/24 10:00 10/14/24 10:08 Tamsulosin HCl (Flomax) 0.4 mg DAILY PO 10/14/24 10:00 10/14/24 10:00 Furosemide (Lasix Injection) 20 mg DAILY IV 10/15/24 10:00 Morphine Sulfate 2 mg Q4HPRN PRN IV SEVERE PAIN (7-10 PAIN SCALE) 10/14/24 10:15 Sodium Chloride 1,000 ml @ 60 mls/hr [id number] IV 10/14/24 11:30 10/14/24 13:51 DC Ceftriaxone Sodium 50 ml @ 100 mls/hr DAILY@09 IV 10/15/24 09:00 Metronidazole 100 ml @ 100 mls/hr Q8HR IV 10/14/24 14:00 Potassium Chloride/Dextrose/ Sod Cl 1,000 ml @ 120 mls/hr Q8H20M IV 10/14/24 14:00 Review of Systems Patient seen and examined at bedside. Patient is alert and oriented to time, place person and responding to all questions. Eyes: No Pain, No Vision change, No Conjunctivae inflammation, No Eyelid inflammation, No Other, No Redness ENT: No Ear pain, No Ear discharge, No Nose pain, No Nose discharge, No Nose congestion, No Mouth pain, No Mouth swelling, No Throat pain, No Throat swelling, No Other Cardiovascular: No Chest Pain, No Palpitations, No Orthopnea, No Paroxysmal No Dyspnea, No Edema, No Lt Headedness, No Other Respiratory: Productive cough, No Shortness of breath, No SOB with exertion, No Wheezing, No Hemoptysis, No Pleuritic Pain, No Sputum, No Other Gastrointestinal: No Nausea, No Vomiting, Abdominal Pain, No Diarrhea, No Constipation, No Melena, No Hematochezia, No Other Genitourinary: No Dysuria, No Frequency, No Incontinence, No Hematuria, No Retention, No Other Musculoskeletal: No other, No neck pain, No shoulder pain, No arm pain, No back pain, No hand pain, No leg pain, No foot pain Skin: No Rash, No Lesions, No Jaundice, No Bruising, No Other Vital Signs Vital Signs Date Time Temp Pulse Resp B/P (MAP) Pulse Ox O2 Delivery O2 Flow Rate FiO2 10/14/24 13:00 97.6 57 16 108/97 (101) 96 97.6 10/14/24 07:30 Nasal Cannula* 2 28 Physical Exam General Appearance: Cooperative. Well developed. Well nourished. NAD Head Exam: Normal inspection Neck Exam: Normal inspection. Non-tender. Normal alignment Pulmonary/Respiratory: Chest non-tender. Decreased bilateral breath sounds, no crackles, trace expiratory wheezes in bilateral bases Cardiovascular/Chest: Regular rate and rhythm. No murmurs. No JVD. Peripheral Pulses: 2+ Radial (R). 2+ Radial (L). 2+ Pedal (R). 2+ Pedal (L) Abdominal Exam: Normal bowel sounds. Soft. normal abdomen, no visible veins, Nontender. No hepatospenomegaly. Small protruding umbilical hernia noted Ankle Exam: Negative ankle edema Lower extremities: Negative lower extremity edema Neuro/Mental Status: A&O x4. Coherent. Thoughts/Psych: Normal thought pattern. Appropriate mood and affect. Good judgement and insight Skin Exam: Normal inspection. Normal color. Warm. Dry Labs/Diagnostic Data Labs Test 10/14/24 08:06 10/14/24 05:40 Range/Units Urine Color Yellow Yellow Urine Clarity Clear Clear Urine pH 5.0 5.0-9.0 Urine Specific [place] 1.022 1.001-1.035 Urine Protein Trace H Negative Urine Ketones Negative Negative Urine Blood Negative Negative /uL Urine Nitrite Negative Negative Urine Bilirubin Negative Negative Urine Urobilinogen 2 H Negative mg/dL Urine Leukocyte Esterase Negative Negative /uL Urine RBC None seen 0 - 3 /hpf Urine Microscopic WBC < 1 0-3 /HPF Urine Squamous Epithelial Cells None seen <5 /hpf Urine Bacteria None seen None Seen /hpf Urine Glucose 3+ H Normal mg/dL Urine Opiates Screen Neg NEGATIVE Urine Fentanyl Screen Neg NEGATIVE Urine Barbiturates Screen Neg NEGATIVE Urine Phencyclidine Screen Neg NEGATIVE Urine Amphetamines Screen Neg NEGATIVE Urine Benzodiazepines Screen Neg NEGATIVE Urine Cocaine Screen Neg NEGATIVE Urine Cannabinoids Screen Neg NEGATIVE White Blood Count 9.6 4.4-10.8 10^3/uL Red Blood Count 4.66 4.5-5.90 10^6/uL Hemoglobin 12.0 L 13.5-17.5 g/dL Hematocrit 37.3 L 41.0-53.0 % Mean Corpuscular Volume 80.0 80.0-100.0 fL Mean Corpuscular Hemoglobin 25.7 L 28.0-32.0 pg Mean Corpuscular Hemoglobin Concent 32.1 32.0-36.0 g/dL Red Cell Distribution Width 22.5 H 11.8-14.3 % Platelet Count 402 140-450 10^3/uL Mean Platelet Volume 7.9 6.9-10.8 fL Neutrophils (%) (Auto) 68.7 37.0-80.0 % Lymphocytes (%) (Auto) 12.7 10.0-50.0 % Monocytes (%) (Auto) 15.5 H 0.0-12.0 % Eosinophils (%) (Auto) 1.9 0.0-7.0 % Basophils (%) (Auto) 1.2 0.0-2.0 % Neutrophils # (Auto) 6.6 1.6-8.6 10 ^3/uL Lymphocytes # (Auto) 1.2 0.4-5.4 10 ^3/uL Monocytes # (Auto) 1.5 H 0-1.3 10 ^3/uL Eosinophils # (Auto) 0.2 0-0.8 10 ^3/uL Basophils # (Auto) 0.1 0-0.2 10 ^3/uL Nucleated Red Blood Cells 0.1 % Sodium Level 136 136-145 mmol/L Potassium Level 3.5 3.5-5.1 mmol/L Chloride Level 103 98-107 mmol/L Carbon Dioxide Level 24 20-31 mmol/L Anion Gap 9 5-15 Blood Urea Nitrogen 33 H 9-23 mg/dL Creatinine 1.05 0.700-1.30 mg/dL Glomerular Filtration Rate Calc 82 >90 mL/min BUN/Creatinine Ratio 31.4 H 10.0-20.0 Serum Glucose 101 74-106 mg/dL Calcium Level 8.5 L 8.7-10.4 mg/dL Troponin I High Sensitivity 32 </=54 ng/L Lipase 54 H 12-53 U/L Assessment Persistent atrial fibrillation; CHADS VASc 5 Chronic heart failure with reduced ejection fraction 20% in August 2024 Methamphetamine cardiomyopathy Secondary hypercoagulable state with history of recurrent DVT and PE Chronic recurrent pleural effusion Acute intractable abdominal pain due to Umbilical hernia Plan: Resumed GDMT as tolerated Echocardiogram from 09/03/2024 showed biatrial enlargement dilated RV outflow tract, RV enlarged. EF 20% with global hypokinesis with decreased RV function. EKG shows atrial fibrillation Negative UDS Serum BNP 809 RCRI 2 points with 10.1% of risk of MACE. Patient has history of congestive heart failure, possible coronary artery disease but patient has good functional capacity likely equivalent to 4-5 METs, per patient he is able to climb up to 2 flights of stairs without getting short of breath or chest pain limiting mobility. Per Cardiology standpoint, patient is at a moderate risk for moderate risk surgery. At this time, there was no additional cardiac workup indicated prior to surgery. Thank you so much for the opportunity to consult on your patient. Cardiology team will sign off. In case of any questions or concerns please feel free to reach out. Plan discussed with Dr. Ornelas Plan discussed with: Patient, Other (RN) Visit Coding Cardiology RES Date of Service: Oct 14, 2024 Billing Provider: MARAH ORNELAS MD Cardiology Common Codes: [id number] INP/OBS CARE (High) MARAH ORNELAS MD 10/16/24 1016: Date Seen: Oct 14, 2024 Family History: FH: myocardial infarction G8 FATHER FH: natural G8 MOTHER 19 CHILD Allergies: Coded Allergies: Amiodarone (Verified Allergy, Unknown, 08/16/23) Metoprolol (Verified Allergy, Unknown, rapid decrease in blood pressure, 02/13/24) Penicillins (Verified Allergy, Unknown, 06/09/23) Home Meds Active Scripts Digoxin (Digoxin) 125 Mcg Tab, 125 MCG PO DAILY for 20 Days, #20 TAB Prov:RAJANI CLAROS RESDIENT 09/06/24 Acetaminophen (Acetaminophen) 500 Mg Tab, 500 MG PO QIDP, #30 TAB 0 Refills Prov:DONNELL BRITO 04/15/24 Carvedilol (COREG) 3.125 Mg Tab, 3.125 MG PO Q12HR for 30 Days, #60 TAB Prov:ANTIONE LUA RESIDENT 02/15/24 Spironolactone (Aldactone) 25 Mg Tab, 12.5 MG PO DAILY for 30 Days, #15 TAB 6 Refills Prov:JAH AYALA DO 08/19/23 Sacubitril-Valsartan (Entresto 24-26 mg) 1 Tab Tab, 1 TAB PO BID for 30 Days, #60 TAB 6 Refills Prov:JAH AYALA DO 08/19/23 Empagliflozin (Jardiance) 10 Mg Tab, 10 MG PO DAILY for 30 Days, #30 TAB 6 Refills Prov:JAH AYALA DO 08/19/23 Atorvastatin Calcium (ATORVASTATIN CALCIUM) 20 Mg Tab, 10 MG PO HS for 30 Days, #15 TAB 6 Refills Prov:JAH AYALA DO 08/19/23 Aspirin (Aspirin Low Dose) 81 Mg Tab, 81 MG PO DAILY for 30 Days, #30 TAB 6 Refills Prov:JAH AYALA 08/19/23 Reported Medications Potassium Chloride (Potassium Chloride ER) 10 Meq Tab, 1 TAB PO BID for 5 Days, #10 10/06/24 Tamsulosin Hcl (Tamsulosin Hcl) 0.4 Mg Cap, 1 CAP PO DAILY for 30 Days, #30 10/06/24 Apixaban Base (ELIQUIS) 5 Mg Tab, 1 TAB PO BID for 90 Days, #180 10/06/24 Furosemide (Furosemide) 40 Mg Tab, 1 TAB PO DAILY for 90 Days, #90 10/06/24 Plan/Recommendation 59yo M, drug use, dilated CM. CHF admission 1 month prior. Currently reporting significantly improved functional class. No acute cardiac syndrome. OK to proceed with surgery understanding risk associated with patients comorbidities. patient expressed understanding and agreeable. monitor AF HR, IV Lopressor 5 mg q4h if needed to control. Otherwise patient will need outpatient follow up for risk factor modification. Also referral for ICD, primary prevention of SCD. Visit Coding Cardiology RES Cardiology Common Codes: [id number] INP/OBS CARE (High) NENO QUESADA Oct 14, 2024 13:58 MARAH ORNELAS MD Oct 16, 2024 10:16
[2024-10-14] MEDS: cefTRIAXone 1GM/50ML D5W 50 ML IV ONE (14:09)
[2024-10-14] MEDS: SODIUM CHLOR 0.9% PF (SALINE LOCK) 10ML VIAL/SYR IV SCH (14:09)
[2024-10-14] MEDS: metroNIDAZOLE 500MG/100ML 100 ML IV SCH (14:09)
[2024-10-14] MEDS: ENOXAPARIN SOD 100 MG/1 ML SYRINGE SC ONE (14:26)
[2024-10-14 14:28] LABS: INR 1.08 (0.9-1.15); Partial Thromboplastin Time 25.7 SEC (24.5-34.5); Prothrombin Time 11.4 sec (9.3-11.8)
--- NOTE | 2024-10-14 15:17 | DVHPN2 ---
Progress Note Date Seen: Oct 14, 2024 Medical Necessity Reason Pt with a Central, PICC or Fol: No Objective vital signs Vital Sign Date Time Temp Pulse Resp B/P (MAP) Pulse Ox O2 Delivery O2 Flow Rate FiO2 10/14/24 13:00 97.6 57 16 108/97 (101) 96 97.6 10/14/24 07:30 Nasal Cannula* 2 28 Total Intake and Output 10/13/24 10/13/24 10/14/24 15:00 23:00 07:00 Intake Total 250 ml Balance 250 ml medications Current Medications Medications Dose Ordered Sig/Zainab Route Start Time Stop Time Status Last Admin Dose Admin Sodium Chloride 10 ml Q8HR IV 10/14/24 14:00 10/14/24 14:09 10 ML Acetaminophen/ Hydrocodone Bitart 1 tab Q4HP PRN PO 10/14/24 09:45 Ondansetron HCl 4 mg Q4HP PRN IV 10/14/24 09:45 Docusate Sodium 100 mg BIDPRN PRN PO 10/14/24 09:45 Acetaminophen 650 mg Q6HP PRN PO 10/14/24 09:45 Morphine Sulfate 2 mg Q4HPRN PRN IV 10/14/24 09:45 UNV Empaglifozin 10 mg DAILY PO 10/14/24 10:00 10/14/24 10:08 10 MG Tamsulosin HCl 0.4 mg DAILY PO 10/14/24 10:00 10/14/24 10:00 0.4 MG Furosemide 20 mg DAILY IV 10/15/24 10:00 Morphine Sulfate 2 mg Q4HPRN PRN IV 10/14/24 10:15 Ceftriaxone Sodium 50 ml @ 100 mls/hr DAILY@09 IV 10/15/24 09:00 Metronidazole 100 ml @ 100 mls/hr Q8HR IV 10/14/24 14:00 10/14/24 14:09 100 MLS/HR Potassium Chloride/Dextrose/ Sod Cl 1,000 ml @ 120 mls/hr Q8H20M IV 10/14/24 14:00 laboratory and microbiology Laboratory Tests 10/14/24 05:40 Test 10/14/24 05:40 Range/Units Serum Glucose 101 74-106 mg/dL Problem List/Assessment/Plan Problem List/Assessment/Plan 10/14/24 patient e valuated in the emergency department, he has a tender umbilical hernia but has eaten just prior to my arrival, abdomen is generally non tender, non distended, CT shows hernia with contained fat, no bowel involvement, will repair in AM, operation, risks and complications explained in detail Plan discussed with: Patient TAI TANNER MD Oct 14, 2024 15:17
[2024-10-14] MEDS: D5W/SOD CHL 0.45%/KCL 20MEQ 1,000 ML IV SCH (16:23)
[2024-10-14] MEDS: MORPHINE SULFATE 4 MG/ML SYR/VIAL IV PRN (18:42)
[2024-10-14 21:00] VITALS: BP 104/83; PULSE 42; RESP 18; TEMP 98.6; O2SAT 94
[2024-10-14] MEDS: MUPIROCIN 2% OINT 15gm or 22gm FOR MRSA NARES EACHNOSTRI SCH (22:00)
[2024-10-15 05:00] VITALS: BP 96/71; PULSE 94; RESP 18; TEMP 97.3; O2SAT 95
[2024-10-15 07:38] LABS: Basophils # (auto) 0.1 10 ^3/uL (0-0.2); Hemoglobin 12.3 g/dL (13.5-17.5); Monocytes # (auto) 1.2 10 ^3/uL (0-1.3)
[2024-10-15 07:42] LABS: Basophils % (auto) 1.5 % (0.0-2.0); Eosinophils # (auto) 0.2 10 ^3/uL (0-0.8); Eosinophils % (auto) 1.7 % (0.0-7.0); Hematocrit 38.7 % (41.0-53.0); Lymphocytes % (auto) 11.7 % (10.0-50.0); Mean Corpuscular Hemoglobin 25.8 pg (28.0-32.0); Mean Corpuscular Hgb Conc. 31.7 g/dL (32.0-36.0); Mean Corpuscular Volume 81.3 fL (80.0-100.0); Monocytes % (auto) 13.8 % (0.0-12.0); Neutrophils # (auto) 6.3 10 ^3/uL (1.6-8.6); Neutrophils % (auto) 71.3 % (37.0-80.0); Platelet Count (auto) 360 10^3/uL (140-450); Red Blood Cells 4.76 10^6/uL (4.5-5.90); White Blood Cell 8.8 10^3/uL (4.4-10.8)
[2024-10-15 07:47] LABS: Red Cell Distribution Width 22.7 % (11.8-14.3)
[2024-10-15 08:00] VITALS: PULSE 69; RESP 20; O2SAT 89
[2024-10-15 08:06] LABS: Alanine Aminotransferase 24 U/L (7-40); Anion Gap 9 (5-15); Aspartate Aminotransferase 24 U/L (13-40); Calcium 9.8 mg/dL (8.7-10.4); Carbon Dioxide 26 mmol/L (20-31); Chloride 103 mmol/L (98-107); Glucose 102 mg/dL (74-106); Potassium 4.2 mmol/L (3.5-5.1); Sodium 138 mmol/L (136-145); Total Protein 6.6 g/dL (5.7-8.2)
[2024-10-15 08:07] LABS: Alkaline Phosphatase 193 U/L (46-116); Bilirubin, Total 1.9 mg/dL (0.2-1.0); Blood Urea Nitrogen 29 mg/dL (9-23)
[2024-10-15 09:00] VITALS: BP 132/104; PULSE 69; RESP 20; TEMP 96.9; O2SAT 90
[2024-10-15] MEDS: cefTRIAXone 1GM/50ML D5W 50 ML IV SCH (09:45)
[2024-10-15] MEDS: FUROSEMIDE 20 MG/2 ML VIAL IV SCH (10:00)
--- NOTE | 2024-10-15 11:44 | DVHPN2 ---
Reviewed: Care Plan, H&P, Labs, Medications, Previous Orders, Radiology Changes from previous H/P or p: No Changes Eyes: No Pain, No Vision change, No Conjunctivae inflammation, No Eyelid inflammation, No Other, No Redness ENT: No Ear pain, No Ear discharge, No Nose pain, No Nose discharge, No Nose congestion, No Mouth pain, No Mouth swelling, No Throat pain, No Throat swelling, No Other Cardiovascular: No Chest Pain, No Palpitations, No Orthopnea, No Paroxysmal Noc. Dyspnea, No Edema, No Lt Headedness, No Other Respiratory: Cough; No Dry, No Shortness of breath, No SOB with excertion, No Wheezing, No Hemoptysis, No Pleuritic Pain; Sputum; No Other Gastrointestinal: No Nausea, No Vomiting; Abdominal Pain; No Diarrhea, No Constipation, No Melena, No Hematochezia, No Other Genitourinary: No Dysuria, No Frequency, No Incontinence, No Hematuria, No Retention, No Other Musculoskeletal: No other, No neck pain, No shoulder pain, No arm pain, No back pain, No hand pain, No leg pain, No foot pain Skin: No Rash, No Lesions, No Jaundice, No Bruising, No Other Objective Vitals Vital Signs Date Time Temp Pulse Resp B/P (MAP) Pulse Ox O2 Delivery O2 Flow Rate FiO2 10/15/24 09:00 96.9 69 20 132/104 (113) 90 96.9 10/15/24 08:00 Room Air* 0 21 Intake/Output Intake and Output 10/15/24 07:00 Intake Total 1520 ml Output Total 452 ml Balance 1068 ml Intake Oral 750 ml IV Total 770 ml Output Urine Total 450 ml Stool Total 2 ml # Voids 2 Medications Current Medications Medications Dose Ordered Sig/Zainab Route Start Time Stop Time Status Last Admin Dose Admin Sodium Chloride 10 ml Q8HR IV 10/14/24 14:00 10/15/24 06:43 10 ML Acetaminophen/ Hydrocodone Bitart 1 tab Q4HP PRN PO 10/14/24 09:45 Ondansetron HCl 4 mg Q4HP PRN IV 10/14/24 09:45 Docusate Sodium 100 mg BIDPRN PRN PO 10/14/24 09:45 Acetaminophen 650 mg Q6HP PRN PO 10/14/24 09:45 Morphine Sulfate 2 mg Q4HPRN PRN IV 10/14/24 09:45 UNV Empaglifozin 10 mg DAILY PO 10/14/24 10:00 10/14/24 10:08 10 MG Tamsulosin HCl 0.4 mg DAILY PO 10/14/24 10:00 10/14/24 10:00 0.4 MG Furosemide 20 mg DAILY IV 10/15/24 10:00 Morphine Sulfate 2 mg Q4HPRN PRN IV 10/14/24 10:15 10/14/24 23:02 2 MG Ceftriaxone Sodium 50 ml @ 100 mls/hr DAILY@09 IV 10/15/24 09:00 10/15/24 09:45 100 MLS/HR Metronidazole 100 ml @ 100 mls/hr Q8HR IV 10/14/24 14:00 10/15/24 06:43 100 MLS/HR Potassium Chloride/Dextrose/ Sod Cl 1,000 ml @ 120 mls/hr Q8H20M IV 10/14/24 14:00 10/15/24 06:42 120 MLS/HR Mupirocin 1 applic BID EACHNOSTRI 10/14/24 22:00 10/19/24 21:59 10/14/24 22:00 1 APPLIC Laboratory Results Laboratory Tests 10/15/24 05:35 Chemistry Test 10/15/24 05:35 Albumin 4.0 g/dL (3.2-4.8) Calcium Level 9.8 mg/dL (8.7-10.4) Total Protein 6.6 g/dL (5.7-8.2) Coagulation Test 10/14/24 13:54 Prothrombin Time 11.4 sec (9.3-11.8) Prothrombin Time INR 1.08 (0.9-1.15) Activated Partial Thromboplast Time 25.7 SEC (24.5-34.5) LFT Test 10/15/24 05:35 Alanine Aminotransferase (ALT) 24 U/L (7-40) Alkaline Phosphatase 193 U/L (46-116) H Aspartate Amino Transferase (AST) 24 U/L (13-40) Total Bilirubin 1.9 mg/dL (0.2-1.0) H Urinalysis Test 10/14/24 08:06 Urine Color Yellow (Yellow) Urine Clarity Clear (Clear) Urine pH 5.0 (5.0-9.0) Urine Specific [place] 1.022 (1.001-1.035) Urine Protein Trace (Negative) H Urine Ketones Negative (Negative) Urine Blood Negative /uL (Negative) Urine Nitrite Negative (Negative) Urine Bilirubin Negative (Negative) Urine Urobilinogen 2 mg/dL (Negative) H Urine Leukocyte Esterase Negative /uL (Negative) Urine RBC None seen /hpf (0 - 3) Urine Microscopic WBC < 1 /HPF (0-3) Urine Squamous Epithelial Cells None seen /hpf (<5) Urine Bacteria None seen /hpf (None Seen) Urine Glucose 3+ mg/dL (Normal) H Microbiology Microbiology Date/Time Source Procedure Growth Status 10/14/24 12:00 Nose MRSA Screen - Final Methicillin Resistant S.aureus Complete Labs and/or images reviewed: Labs reviewed by me, Image(s) reviewed by me Assessment/Plan Assessment/Plan Acute abdominal pain secondary to Umbilical hernia status post surgery by Dr. Grant 10-15-24 Acute hypoxic respiratory failure due to heart failure, improved Acute on chronic heart failure with low ejection fraction Acute pulmonary edema, due to systolic heart failure Dilated cardiomyopathy, methamphetamine induced, EF 20% Right-sided pleural effusion, likely due to heart failure Atrial fibrillation with rapid ventricular response Acute kidney injury hemodynamically mediated due to vasomotor nephropathy Chronic kidney disease Amphetamine use Hypertension Dyslipidemia Moderate tricuspid valve regurgitation Hypokalemia Time spent 45 minutes Plan discussed with: Patient Date of Service: Oct 15, 2024 Billing Provider: TAMMI LYNN MD Common Visit Codes: [id number] INP/OBS CARE(HIGH) TAMMI LYNN MD Oct 15, 2024 11:44
[2024-10-15] MEDS: LIDOCAINE W/ EPINEPHRINE 1% 20ML VIAL ONE (12:37)
[2024-10-15] MEDS: SUCCINYLCHOLINE CHLORIDE 20 MG/ML 10ML VIAL IV ONE (12:48)
[2024-10-15] MEDS ORDERED: HYDROmorphone HCL 2 MG/ML VL/or syr ONE (12:49)
[2024-10-15] MEDS ORDERED: fentaNYL CITRATE 100 MCG/2 ML VL ONE (12:49)
[2024-10-15] MEDS: BUPIVACAINE 0.5% P/F INJ 10 ML VIAL ONE (13:00)
[2024-10-15] MEDS ORDERED: ROCURONIUM 10MG/ML 10ML VIAL IV ONE (13:20)
[2024-10-15] MEDS ORDERED: SUGAMMADEX 200mg/2ml Vial (100MG/ML) IV ONE (13:37)
[2024-10-15 13:46] VITALS: PULSE 118; RESP 12; O2SAT 94
[2024-10-15] MEDS ORDERED: HYDROmorphone HCL 2 MG/ML VL/or syr IV PRN (14:00)
[2024-10-15] MEDS: ONDANSETRON HCL 4 MG/2 ML VIAL IV ONE (14:00)
[2024-10-15] MEDS ORDERED: ACETAMINOPHEN IV 1000 MG/100ML (10MG/ML) IV PRN (14:00)
--- NOTE | 2024-10-15 14:01 | DVHOP ---
DATE OF SURGERY: 10/15/2024 PREOPERATIVE DIAGNOSIS: Incarcerated umbilical hernia. POSTOPERATIVE DIAGNOSIS: Incarcerated umbilical hernia. SURGEON: Richi Grant MD EMPLOYEE PLACEMENT SPECIALIST: José Luis De Los Santos NP ANESTHESIA: General endotracheal, Dr. Lambert. PROCEDURE: Repair of incarcerated umbilical hernia. DESCRIPTION OF PROCEDURE: Under general anesthesia with the patient's skin prepped and draped, incision was made over the palpable visible bulge above the umbilicus. This was exposed by dissection of surrounding fat. The sac of the hernia contained hemorrhagic fluid. The sac was opened and the incarcerated omental fat was inspected. It appeared viable. It was reduced into the peritoneal cavity. The sac of the hernia was excised. The edges of the hernia sac were explored with a dissecting finger source to minimize the likelihood of injury to sub lying bowel. I changed my mind. The repair consisted of 0 nonabsorbable suture. Subcutaneous tissues and skin were then approximated using Monocryl suture, Dermabond glue, and Steri-Strips. The patient remained stable throughout the procedure and left the operating room following an accurate needle and sponge counts. His family (sister Myranda) was informed by phone. However, she expressed that she and her brother are not on speaking terms and her brother probably just wanted her to be notified in case and was informed as it was the number given to us by the patient preoperatively as contact. MD DANG Hererra/JUANCHO TID: [id number] RECEIPT: [id number]
[2024-10-15 16:36] VITALS: BP 101/81; PULSE 91; RESP 18; TEMP 96.3; O2SAT 96
[2024-10-15 21:00] VITALS: BP 95/70; PULSE 98; RESP 17; TEMP 80.4; O2SAT 97
[2024-10-16] VITALS (8 sets, daily range): BP systolic 92–123; BP diastolic 68–87; PULSE 52–115; RESP 15–20; TEMP 97.5–98.5; O2SAT 89–98
--- NOTE | 2024-10-16 08:09 | DVHPN2 ---
Reviewed: Care Plan, H&P, Labs, Medications, Previous Orders, Radiology Changes from previous H/P or p: No Changes Eyes: No Pain, No Vision change, No Conjunctivae inflammation, No Eyelid inflammation, No Other, No Redness ENT: No Ear pain, No Ear discharge, No Nose pain, No Nose discharge, No Nose congestion, No Mouth pain, No Mouth swelling, No Throat pain, No Throat swelling, No Other Cardiovascular: No Chest Pain, No Palpitations, No Orthopnea, No Paroxysmal Noc. Dyspnea, No Edema, No Lt Headedness, No Other Respiratory: Cough; No Dry, No Shortness of breath, No SOB with excertion, No Wheezing, No Hemoptysis, No Pleuritic Pain; Sputum; No Other Gastrointestinal: No Nausea, No Vomiting; Abdominal Pain; No Diarrhea, No Constipation, No Melena, No Hematochezia, No Other Genitourinary: No Dysuria, No Frequency, No Incontinence, No Hematuria, No Retention, No Other Musculoskeletal: No other, No neck pain, No shoulder pain, No arm pain, No back pain, No hand pain, No leg pain, No foot pain Skin: No Rash, No Lesions, No Jaundice, No Bruising, No Other Objective Vitals Vital Signs Date Time Temp Pulse Resp B/P (MAP) Pulse Ox O2 Delivery O2 Flow Rate FiO2 10/16/24 06:14 78 18 116/74 10/16/24 04:54 98.1 95 98.1 10/15/24 20:00 Room Air* 0 21 Intake/Output Intake and Output 10/16/24 07:00 Intake Total 1050 ml Output Total 650 ml Balance 400 ml Intake Oral 700 ml IV Total 350 ml Output Urine Total 650 ml # Voids 4 # Bowel Movements 1 Medications Current Medications Medications Dose Ordered Sig/Zainab Route Start Time Stop Time Status Last Admin Dose Admin Sodium Chloride 10 ml Q8HR IV 10/14/24 14:00 10/16/24 05:47 10 ML Acetaminophen/ Hydrocodone Bitart 1 tab Q4HP PRN PO 10/14/24 09:45 Ondansetron HCl 4 mg Q4HP PRN IV 10/14/24 09:45 Docusate Sodium 100 mg BIDPRN PRN PO 10/14/24 09:45 Acetaminophen 650 mg Q6HP PRN PO 10/14/24 09:45 Morphine Sulfate 2 mg Q4HPRN PRN IV 10/14/24 09:45 UNV Empaglifozin 10 mg DAILY PO 10/14/24 10:00 10/15/24 15:19 10 MG Tamsulosin HCl 0.4 mg DAILY PO 10/14/24 10:00 10/15/24 15:18 0.4 MG Furosemide 20 mg DAILY IV 10/15/24 10:00 Morphine Sulfate 2 mg Q4HPRN PRN IV 10/14/24 10:15 10/16/24 05:44 2 MG Ceftriaxone Sodium 50 ml @ 100 mls/hr DAILY@09 IV 10/15/24 09:00 10/15/24 09:45 100 MLS/HR Metronidazole 100 ml @ 100 mls/hr Q8HR IV 10/14/24 14:00 10/15/24 22:11 100 MLS/HR Potassium Chloride/Dextrose/ Sod Cl 1,000 ml @ 120 mls/hr Q8H20M IV 10/14/24 14:00 10/15/24 15:15 120 MLS/HR Mupirocin 1 applic BID EACHNOSTRI 10/14/24 22:00 10/19/24 21:59 10/15/24 22:23 1 APPLIC Laboratory Results Laboratory Tests 10/15/24 05:35 Urinalysis Test 10/14/24 08:06 Urine Color Yellow (Yellow) Urine Clarity Clear (Clear) Urine pH 5.0 (5.0-9.0) Urine Specific [place] 1.022 (1.001-1.035) Urine Protein Trace (Negative) H Urine Ketones Negative (Negative) Urine Blood Negative /uL (Negative) Urine Nitrite Negative (Negative) Urine Bilirubin Negative (Negative) Urine Urobilinogen 2 mg/dL (Negative) H Urine Leukocyte Esterase Negative /uL (Negative) Urine RBC None seen /hpf (0 - 3) Urine Microscopic WBC < 1 /HPF (0-3) Urine Squamous Epithelial Cells None seen /hpf (<5) Urine Bacteria None seen /hpf (None Seen) Urine Glucose 3+ mg/dL (Normal) H Microbiology Microbiology Date/Time Source Procedure Growth Status 10/14/24 12:00 Nose MRSA Screen - Final Methicillin Resistant S.aureus Complete Labs and/or images reviewed: Labs reviewed by me, Image(s) reviewed by me Assessment/Plan Assessment/Plan Incarcerated umbilical hernia status post surgery by Dr. Grnat 10/15/2024 Acute hypoxic respiratory failure due to heart failure, improved Acute on chronic congestive heart failure with low ejection fraction Acute pulmonary edema, due to systolic heart failure Dilated cardiomyopathy, methamphetamine induced, EF 20% Right-sided pleural effusion, likely due to heart failure Atrial fibrillation with rapid ventricular response Acute kidney injury hemodynamically mediated due to vasomotor nephropathy Chronic kidney disease Amphetamine use Hypertension Dyslipidemia Moderate tricuspid valve regurgitation Hypokalemia Time spent 45 minutes Advance diet as tolerated Plan discussed with: Patient My Orders Orders - TAMMI LYNN MD Procedure Category Date Status Time Full Liq Diet DIET 10/15/24 Transmitted Dinner Date of Service: Oct 16, 2024 Billing Provider: TAMMI LYNN MD Common Visit Codes: [id number] INP/OBS CARE(HIGH) TAMMI LYNN MD Oct 16, 2024 08:09
--- NOTE | 2024-10-16 13:18 | DVHPN2 ---
Subjective Date Seen: Oct 16, 2024 Post op day Post op day: 1 Patient reports: No new complaints Nursing reports: No new complaints General: Normal HNT: Normal Cardiovascular: Normal Respiratory: Normal Gastrointestinal: Normal Genitourinary: Normal Musculoskeletal: Normal Neurological: Normal Objective Vitals Vital Sign Date Time Temp Pulse Resp B/P (MAP) Pulse Ox O2 Delivery O2 Flow Rate FiO2 10/16/24 10:00 111/73 10/16/24 09:00 98.1 115 19 95 98.1 10/16/24 08:00 Room Air* 0 21 Total Intake and Output 10/15/24 10/15/24 10/16/24 15:00 23:00 07:00 Intake Total 250 ml 300 ml 500 ml Output Total 650 ml Balance 250 ml 300 ml -150 ml Medications Current Medications Medications Dose Ordered Sig/Zainab Route Start Time Stop Time Status Last Admin Dose Admin Sodium Chloride 10 ml Q8HR IV 10/14/24 14:00 10/16/24 05:47 10 ML Acetaminophen/ Hydrocodone Bitart 1 tab Q4HP PRN PO 10/14/24 09:45 Ondansetron HCl 4 mg Q4HP PRN IV 10/14/24 09:45 Docusate Sodium 100 mg BIDPRN PRN PO 10/14/24 09:45 Acetaminophen 650 mg Q6HP PRN PO 10/14/24 09:45 Morphine Sulfate 2 mg Q4HPRN PRN IV 10/14/24 09:45 UNV Empaglifozin 10 mg DAILY PO 10/14/24 10:00 10/16/24 10:00 10 MG Tamsulosin HCl 0.4 mg DAILY PO 10/14/24 10:00 10/16/24 10:36 0.4 MG Furosemide 20 mg DAILY IV 10/15/24 10:00 10/16/24 10:00 20 MG Morphine Sulfate 2 mg Q4HPRN PRN IV 10/14/24 10:15 10/16/24 05:44 2 MG Ceftriaxone Sodium 50 ml @ 100 mls/hr DAILY@09 IV 10/15/24 09:00 10/15/24 09:45 100 MLS/HR Metronidazole 100 ml @ 100 mls/hr Q8HR IV 10/14/24 14:00 10/15/24 22:11 100 MLS/HR Potassium Chloride/Dextrose/ Sod Cl 1,000 ml @ 120 mls/hr Q8H20M IV 10/14/24 14:00 10/15/24 15:15 120 MLS/HR Mupirocin 1 applic BID EACHNOSTRI 10/14/24 22:00 10/19/24 21:59 10/16/24 10:00 1 APPLIC General: Normal, Well developed Head/Eyes: Normal ENT: Normal Neck: Normal Lungs: Normal Cardiovascular: Normal, Regular rate and rhythm Abdominal: Normal, Soft Skin: Normal, Normal inspection Labs and Microbiology Laboratory Tests 10/15/24 05:35 Test 10/15/24 05:35 Range/Units Serum Glucose 102 74-106 mg/dL Ass/Plan Labs and/or images reviewed: Labs reviewed by me, Image(s) reviewed by me Problem List 10/14/24 patient e valuated in the emergency department, he has a tender umbilical hernia but has eaten just prior to my arrival, abdomen is generally non tender, non distended, CT shows hernia with contained fat, no bowel involvement, will repair in AM, operation, risks and complications explained in detail Problems(with codes): (1) Umbilical hernia (2) Intractable abdominal pain Assessment/Plan no new complaints abdomen soft, non distended, appropriately tender tolerating diet, denies nausea and vomiting passing gas Plan: per surgery point of view ok to discharge ok to shower in 72 hours advance diet as tolerated follow up in surgery clinic in two weeks Prognosis: Excellent Plan discussed with patient, Dr. Grant Visit Coding Surgery Date of Service if different f: Oct 16, 2024 Billing Provider: TAI GRANT MD Surgery Visit Codes: [id number] INP/OBS CARE(HIGH) YOUSIF MALIK DENTURE [employer] W[employer] SPECIALIST Oct 16, 2024 13:17
[2024-10-17 01:00] VITALS: BP 105/85; PULSE 84; RESP 18; TEMP 97.8; O2SAT 97
[2024-10-17 05:00] VITALS: BP 104/84; PULSE 59; RESP 18; TEMP 97.7; O2SAT 95
[2024-10-17 08:03] VITALS: PULSE 69; RESP 20; O2SAT 89
[2024-10-17] MEDS ORDERED: MET500T PO (08:18)
[2024-10-17] MEDS ORDERED: LEVO500T91 PO (08:18)
[2024-10-17] MEDS ORDERED: HYDR-4902 PO (08:19)
--- NOTE | 2024-10-17 08:21 | DVHPN2 ---
Reviewed: Care Plan, H&P, Labs, Medications, Previous Orders, Radiology Changes from previous H/P or p: No Changes Eyes: No Pain, No Vision change, No Conjunctivae inflammation, No Eyelid inflammation, No Other, No Redness ENT: No Ear pain, No Ear discharge, No Nose pain, No Nose discharge, No Nose congestion, No Mouth pain, No Mouth swelling, No Throat pain, No Throat swelling, No Other Cardiovascular: No Chest Pain, No Palpitations, No Orthopnea, No Paroxysmal Noc. Dyspnea, No Edema, No Lt Headedness, No Other Respiratory: Cough; No Dry, No Shortness of breath, No SOB with excertion, No Wheezing, No Hemoptysis, No Pleuritic Pain; Sputum; No Other Gastrointestinal: No Nausea, No Vomiting; Abdominal Pain; No Diarrhea, No Constipation, No Melena, No Hematochezia, No Other Genitourinary: No Dysuria, No Frequency, No Incontinence, No Hematuria, No Retention, No Other Musculoskeletal: No other, No neck pain, No shoulder pain, No arm pain, No back pain, No hand pain, No leg pain, No foot pain Skin: No Rash, No Lesions, No Jaundice, No Bruising, No Other Objective Vitals Vital Signs Date Time Temp Pulse Resp B/P (MAP) Pulse Ox O2 Delivery O2 Flow Rate FiO2 10/17/24 08:03 69 20 89 Room Air* 0 21 10/17/24 05:00 97.7 104/84 (91) 97.7 Intake/Output Intake and Output 10/17/24 07:00 Intake Total 850 ml Output Total 1325 ml Balance -475 ml Intake Oral 850 ml Output Urine Total 1325 ml # Bowel Movements 2 Medications Current Medications Medications Dose Ordered Sig/Zainab Route Start Time Stop Time Status Last Admin Dose Admin Sodium Chloride 10 ml Q8HR IV 10/14/24 14:00 10/17/24 05:41 10 ML Acetaminophen/ Hydrocodone Bitart 1 tab Q4HP PRN PO 10/14/24 09:45 Ondansetron HCl 4 mg Q4HP PRN IV 10/14/24 09:45 Docusate Sodium 100 mg BIDPRN PRN PO 10/14/24 09:45 Acetaminophen 650 mg Q6HP PRN PO 10/14/24 09:45 Morphine Sulfate 2 mg Q4HPRN PRN IV 10/14/24 09:45 UNV Empaglifozin 10 mg DAILY PO 10/14/24 10:00 10/16/24 10:00 10 MG Tamsulosin HCl 0.4 mg DAILY PO 10/14/24 10:00 10/16/24 10:36 0.4 MG Furosemide 20 mg DAILY IV 10/15/24 10:00 10/16/24 10:00 20 MG Morphine Sulfate 2 mg Q4HPRN PRN IV 10/14/24 10:15 10/17/24 03:33 2 MG Ceftriaxone Sodium 50 ml @ 100 mls/hr DAILY@09 IV 10/15/24 09:00 10/15/24 09:45 100 MLS/HR Metronidazole 100 ml @ 100 mls/hr Q8HR IV 10/14/24 14:00 10/15/24 22:11 100 MLS/HR Potassium Chloride/Dextrose/ Sod Cl 1,000 ml @ 120 mls/hr Q8H20M IV 10/14/24 14:00 10/15/24 15:15 120 MLS/HR Mupirocin 1 applic BID EACHNOSTRI 10/14/24 22:00 10/19/24 21:59 10/16/24 21:15 1 APPLIC Laboratory Results Laboratory Tests 10/15/24 05:35 Urinalysis Test 10/14/24 08:06 Urine Color Yellow (Yellow) Urine Clarity Clear (Clear) Urine pH 5.0 (5.0-9.0) Urine Specific [place] 1.022 (1.001-1.035) Urine Protein Trace (Negative) H Urine Ketones Negative (Negative) Urine Blood Negative /uL (Negative) Urine Nitrite Negative (Negative) Urine Bilirubin Negative (Negative) Urine Urobilinogen 2 mg/dL (Negative) H Urine Leukocyte Esterase Negative /uL (Negative) Urine RBC None seen /hpf (0 - 3) Urine Microscopic WBC < 1 /HPF (0-3) Urine Squamous Epithelial Cells None seen /hpf (<5) Urine Bacteria None seen /hpf (None Seen) Urine Glucose 3+ mg/dL (Normal) H Microbiology Microbiology Date/Time Source Procedure Growth Status 10/14/24 12:00 Nose MRSA Screen - Final Methicillin Resistant S.aureus Complete Labs and/or images reviewed: Labs reviewed by me, Image(s) reviewed by me Assessment/Plan Assessment/Plan Incarcerated umbilical hernia status post surgery by Dr. Grant 10/15/2024 Acute hypoxic respiratory failure due to heart failure, improved Acute on chronic congestive heart failure with low ejection fraction Acute pulmonary edema, due to systolic heart failure Dilated cardiomyopathy, methamphetamine induced, EF 20% Mild Right-sided pleural effusion, likely due to heart failure Atrial fibrillation with rapid ventricular response Acute kidney injury hemodynamically mediated due to vasomotor nephropathy Chronic kidney disease Amphetamine use Hypertension Dyslipidemia Moderate tricuspid valve regurgitation Hypokalemia Time spent 45 minutes Advance diet as tolerated Patient is having bowel movement abdomen is soft afebrile stable vital signs cleared for discharge by surgeon Plan discussed with: Patient My Orders Orders - TAMMI LYNN MD Procedure Category Date Status Time * [employer] CONS 10/16/24 Transmitted Consult Soft Diet DIET 10/16/24 Transmitted Breakfast Date of Service: Oct 17, 2024 Billing Provider: TAMMI LYNN MD Common Visit Codes: [id number] INP/OBS CARE(HIGH) TAMMI LYNN MD Oct 17, 2024 08:21
--- NOTE | 2024-10-17 08:25 | DVHDS2 ---
Discharge Summary Date of Admission Oct 14, 2024 at 09:45 Date of Discharge: Oct 17, 2024 Admitting Diagnosis Abdominal pain Wounds: Surgery for the umbilical hernia Labs/Diagnostic Data: Laboratory Results Test 10/15/24 05:35 10/14/24 13:54 10/14/24 08:06 10/14/24 05:40 White Blood Count 8.8 10^3/uL (4.4-10.8) Red Blood Count 4.76 10^6/uL (4.5-5.90) Hemoglobin 12.3 g/dL (13.5-17.5) Hematocrit 38.7 % (41.0-53.0) Mean Corpuscular Volume 81.3 fL (80.0-100.0) Mean Corpuscular Hemoglobin 25.8 pg (28.0-32.0) Mean Corpuscular Hemoglobin Concent 31.7 g/dL (32.0-36.0) Red Cell Distribution Width 22.7 % (11.8-14.3) Platelet Count 360 10^3/uL (140-450) Mean Platelet Volume 8.2 fL (6.9-10.8) Neutrophils (%) (Auto) 71.3 % (37.0-80.0) Lymphocytes (%) (Auto) 11.7 % (10.0-50.0) Monocytes (%) (Auto) 13.8 % (0.0-12.0) Eosinophils (%) (Auto) 1.7 % (0.0-7.0) Basophils (%) (Auto) 1.5 % (0.0-2.0) Neutrophils # (Auto) 6.3 10 ^3/uL (1.6-8.6) Lymphocytes # (Auto) 1.0 10 ^3/uL (0.4-5.4) Monocytes # (Auto) 1.2 10 ^3/uL (0-1.3) Eosinophils # (Auto) 0.2 10 ^3/uL (0-0.8) Basophils # (Auto) 0.1 10 ^3/uL (0-0.2) Nucleated Red Blood Cells 0.0 % Sodium Level 138 mmol/L (136-145) Potassium Level 4.2 mmol/L (3.5-5.1) Chloride Level 103 mmol/L (98-107) Carbon Dioxide Level 26 mmol/L (20-31) Anion Gap 9 (5-15) Blood Urea Nitrogen 29 mg/dL (9-23) Creatinine 1.16 mg/dL (0.700-1.30) Glomerular Filtration Rate Calc 73 mL/min (>90) BUN/Creatinine Ratio 25.0 (10.0-20.0) Serum Glucose 102 mg/dL (74-106) Calcium Level 9.8 mg/dL (8.7-10.4) Total Bilirubin 1.9 mg/dL (0.2-1.0) Aspartate Amino Transferase (AST) 24 U/L (13-40) Alanine Aminotransferase (ALT) 24 U/L (7-40) Alkaline Phosphatase 193 U/L (46-116) Total Protein 6.6 g/dL (5.7-8.2) Albumin 4.0 g/dL (3.2-4.8) Prothrombin Time 11.4 sec (9.3-11.8) Prothrombin Time INR 1.08 (0.9-1.15) Activated Partial Thromboplast Time 25.7 SEC (24.5-34.5) Urine Color Yellow (Yellow) Urine Clarity Clear (Clear) Urine pH 5.0 (5.0-9.0) Urine Specific [place] 1.022 (1.001-1.035) Urine Protein Trace (Negative) Urine Ketones Negative (Negative) Urine Blood Negative /uL (Negative) Urine Nitrite Negative (Negative) Urine Bilirubin Negative (Negative) Urine Urobilinogen 2 mg/dL (Negative) Urine Leukocyte Esterase Negative /uL (Negative) Urine RBC None seen /hpf (0 - 3) Urine Microscopic WBC < 1 /HPF (0-3) Urine Squamous Epithelial Cells None seen /hpf (<5) Urine Bacteria None seen /hpf (None Seen) Urine Glucose 3+ mg/dL (Normal) Urine Opiates Screen Neg (NEGATIVE) Urine Fentanyl Screen Neg (NEGATIVE) Urine Barbiturates Screen Neg (NEGATIVE) Urine Phencyclidine Screen Neg (NEGATIVE) Urine Amphetamines Screen Neg (NEGATIVE) Urine Benzodiazepines Screen Neg (NEGATIVE) Urine Cocaine Screen Neg (NEGATIVE) Urine Cannabinoids Screen Neg (NEGATIVE) Troponin I High Sensitivity 32 ng/L (</=54) B-Type Natriuretic Peptide 809.45 pg/mL (0-100) Lipase 54 U/L (12-53) Other Laboratory Tests 10/15/24 05:35 Brief Hx & Hospital Course: 59-year-old male with a history of hypertension hyperlipidemia amphetamine abuse congestive heart failure chronic respiratory failure dilated cardiomyopathy ejection fraction 20 percent atrial fibrillation chronic kidney disease came in for abdominal pain found to have incarcerated umbilical hernia underwent surgery by Dr. Grant on 10/15/2024 postop course uneventful cleared for discharge by surgeon. Prescription for Levaquin Flagyl [place] transmitted to pharmacy he will follow up with surgeon in two weeks Consults/Reason for consult Surgeon Dr. Grant Operations or Procedures Umbilical hernia repair Condition at Discharge: Fair Final Diagnosis/Problems List Incarcerated umbilical hernia status post surgery by Dr. Grant 10/15/2024 Acute hypoxic respiratory failure due to heart failure, improved Acute on chronic congestive heart failure with low ejection fraction Acute pulmonary edema, due to systolic heart failure Dilated cardiomyopathy, methamphetamine induced, EF 20% Mild Right-sided pleural effusion, likely due to heart failure Atrial fibrillation with rapid ventricular response Acute kidney injury hemodynamically mediated due to vasomotor nephropathy Chronic kidney disease Amphetamine use Hypertension Dyslipidemia Moderate tricuspid valve regurgitation Hypokalemia Discharge Disposition: Home Discharge Instruct/Medications Diet: Cardiac 2g Na,low cholest Activity: Light activity Follow Up/Referral: Follow up with surgeon Dr. Grant in two weeks Follow up with the primary Dr in one week Resume all previous home meds Medications: Levaquin Flagyl [place] [facility] (Time taken for discharge summary 45 minutes) Discharge Statement: "Patient was advised to return to the ER or call 911 if any headaches, dizziness, shortness of breath, chest pain, abdominal pain, bleeding, fevers, or worsening of medical condition. Patient was counseled about treatment plan, medications, possible side effects, patientverbalized understanding. All questions were answered to the best of my ability. This discharge took greater then 30 minutes in planning, reviewing documentation, counseling the patient, and discussing with other team members." ASSESSMENT ASSESSMENT Hospital Course Improved Assessment Incarcerated umbilical hernia status post surgery by Dr. Grant 10/15/2024 Acute hypoxic respiratory failure due to heart failure, improved Acute on chronic congestive heart failure with low ejection fraction Acute pulmonary edema, due to systolic heart failure Dilated cardiomyopathy, methamphetamine induced, EF 20% Mild Right-sided pleural effusion, likely due to heart failure Atrial fibrillation with rapid ventricular response Acute kidney injury hemodynamically mediated due to vasomotor nephropathy Chronic kidney disease Amphetamine use Hypertension Dyslipidemia Moderate tricuspid valve regurgitation Hypokalemia Date of Service: Oct 17, 2024 Billing Provider: TAMMI LYNN MD Common Visit Codes: [id number] DISCH DAY >30min TAMMI LYNN MD Oct 17, 2024 08:25
[2024-10-17 08:30] VITALS: BP 100/76; PULSE 103; RESP 19; TEMP 97.3; O2SAT 97
[2024-10-17 09:14] VITALS: BP 100/76; PULSE 103; RESP 19; TEMP 97.3; O2SAT 97
[2024-10-17 09:27] VITALS: BP 110/60; PULSE 80; RESP 19
== END 2024-10-17 12:05 | disposition home or self-care (01) | DRG 228 ==
LOC: ER 04:59 → EDBD 04:59 → OVERFLOW 09:45 → CENTRAL 17:32
PROVIDERS: ADMIT Family Medicine; ATTEND Family Medicine
PROC: 0WQF0ZZ Repair Abdominal Wall, Open Approach (ICD-10-PCS; principal; 2024-10-15 12:57)
DX: K42.0 Umbilical hernia with obstruction, without gangrene (principal); J81.0 Acute pulmonary edema; N17.0 Acute kidney failure with tubular necrosis; I50.23 Acute on chronic systolic (congestive) heart failure; I42.0 Dilated cardiomyopathy; I13.0 Hypertensive heart and chronic kidney disease with heart failure and stage 1 through stage 4 chronic kidney disease, or unspecified chronic kidney disease; I48.19 Other persistent atrial fibrillation; E86.0 Dehydration; J90 Pleural effusion, not elsewhere classified; E78.5 Hyperlipidemia, unspecified; E87.6 Hypokalemia; K59.00 Constipation, unspecified; N18.9 Chronic kidney disease, unspecified; N40.0 Benign prostatic hyperplasia without lower urinary tract symptoms; F15.90 Other stimulant use, unspecified, uncomplicated; I07.1 Rheumatic tricuspid insufficiency; Z88.0 Allergy status to penicillin; Z88.8 Allergy status to other drugs, medicaments and biological substances; Z79.82 Long term (current) use of aspirin; Z79.899 Other long term (current) drug therapy
CPT/HCPCS: 36415; 71045; 74177; 80048; 80053; 80307; 81001; 83690; 83880; 84484; 85025; 85610; 85730; 86850; 86900; 86901; 87081; 88302; 93005; 96365; 96372; 96375; 99291; G0378; J0131; J0330; J2405; J3490

== ENCOUNTER 2024-12-15 22:25 | Inpatient (IN) | payer OTHER ==
[~2024-12-15] VITALS: Ht 177.8 cm; Wt 85.0 kg
[~2024-12-15 22:25] MED LIST changes: +HYDR-4902 PO; +LEVO500T91 PO; +MET500T PO
--- NOTE | 2024-12-15 22:59 | ECG ---
[facility] Test Date: 2024-12-15 Test Time: 22:32:29 Pat Name: CARMEN BERNAL Department: ED Room: 0248T Gender: M Second Rigger: [id number] : [id number] Requested By: EMERGENCY EMERGENCY Order Number: [id number] Reading MD: Shad Washington Measurements Intervals [place] Rate: 134 P: 0 MT: 0 QRS: 104 QRSD: 92 T: -58 QT: 317 QTc: 474 Interpretive Statements Atrial fibrillation Right axis deviation Borderline T abnormalities, inferior leads Electronically Signed On 12-22-2024 22:26:31 PDT by Shad Washington Please click the below link to view image of tracing.
--- NOTE | 2024-12-15 23:28 | ED.PDOC ---
History of Present Illness HPI Comments This is a 59 year-old male, with a PMHX of CHF, High Lipids, HTN, who presents to the ED via EMS with a chief complaint of tremors with associated SOB as of X2 weeks ago. Patient reports his lungs are "full of liquid". Patient reports running out of prescribed Eliquis for 1.5 weeks. Patient additionally states he has been experiencing abdominal "tightness", with no known relief. Patient has no further complaints at this time. Patient denies cough, chest pain, dizziness, weakness, or LOC. REVIEW OF SYSTEMS: General: (+) Tremors, No fever, no chills, or fatigue HEENT: No sore throat, no earache, no congestion, no neck pain. Cardiac: No chest pain. No palpitations. Lungs: (+) shortness of breath, no cough. GI: No nausea, no vomiting, no diarrhea, no constipation, no abdominal pain : No dysuria, frequency, or urgency. No hematuria. Musculoskeletal: No joint pain , no joint swelling, no extremity edema. Skin: No rash, no itching. Neuro: No headache, no dizziness, no weakness Physical EXAM: General: Awake, alert and oriented. No acute distress. Skin: Skin in warm, dry and intact. Appropriate color for ethnicity. HEENT: The head is normocephalic and atraumatic. Conjunctivae are clear without exudates or hemorrhage. Sclera is non-icteric. EOM are intact. No signs of nystagmus. Eyelids are normal in appearance without swelling or lesions. Oral mucosa is pink and moist Neck: The neck is supple with normal range of motion. No JVD. Cardiac: Heart rate and rhythm are normal. No murmurs, gallops, or rubs are auscultated. Respiratory: (+) Diminished Breath Sounds Bilaterally with Wheezing. Abdominal: (+) Abdominal distention, firm, nontender. Bowel sounds are present and normoactive in all four quadrants. Extremities: Upper and lower extremities are atraumatic in appearance without deformity or edema. Neurological: The patient is awake, alert and oriented to person, place, and time with normal speech. Speech is clear. There is no facial asymmetry. Psychiatric: Appropriate mood and affect. Good judgement and insight. Chief Complaint: Shortness of Breath Time Seen by MD: 23:09 Primary Care Provider: Dr. Matson Reviewed Notes: Medications, Allergies Allergies: Coded Allergies: Amiodarone (Verified Allergy, Unknown, 08/16/23) Metoprolol (Verified Allergy, Unknown, rapid decrease in blood pressure, 02/13/24) Penicillins (Verified Allergy, Unknown, 06/09/23) Home Meds Active Scripts Hydrocodone-Acetaminophen (Hydrocodone Bitartrate/AC 5-325 mg) 1 Tab Tab, 1 TAB PO QID PRN, #20 TAB Prov:TAMMI LYNN MD 10/17/24 Metronidazole (Metronidazole) 500 Mg Tab, 500 MG PO TID, #20 TAB Prov:TAMMI LYNN MD 10/17/24 Levofloxacin Hemihydrate (LEVAQUIN 500 MG) 500 Mg Tab, 1 TAB PO DAILY, #7 TAB Prov:TAMMI LYNN MD 10/17/24 Digoxin (Digoxin) 125 Mcg Tab, 125 MCG PO DAILY for 20 Days, #20 TAB Prov:RAJANI CLAROS RESDIENT 09/06/24 Acetaminophen (Acetaminophen) 500 Mg Tab, 500 MG PO QIDP, #30 TAB 0 Refills Prov:DONNELL BRITO 04/15/24 Carvedilol (COREG) 3.125 Mg Tab, 3.125 MG PO Q12HR for 30 Days, #60 TAB Prov:ANTIONE LUA 02/15/24 Spironolactone (Aldactone) 25 Mg Tab, 12.5 MG PO DAILY for 30 Days, #15 TAB 6 Re fills Prov:JAH AYALA DO 08/19/23 Sacubitril-Valsartan (Entresto 24-26 mg) 1 Tab Tab, 1 TAB PO BID for 30 Days, #60 TAB 6 Refills Prov:JAH AYALA DO 08/19/23 Empagliflozin (Jardiance) 10 Mg Tab, 10 MG PO DAILY for 30 Days, #30 TAB 6 Refills Prov:JAH AYALA DO 08/19/23 Atorvastatin Calcium (ATORVASTATIN CALCIUM) 20 Mg Tab, 10 MG PO HS for 30 Days, #15 TAB 6 Refills Prov:JAH AYALA DO 08/19/23 Aspirin (Aspirin Low Dose) 81 Mg Tab, 81 MG PO DAILY for 30 Days, #30 TAB 6 Refills Prov:JAH AYALA DO 08/19/23 Reported Medications Potassium Chloride (Potassium Chloride ER) 10 Meq Tab, 1 TAB PO BID for 5 Days, #10 10/06/24 Tamsulosin Hcl (Tamsulosin Hcl) 0.4 Mg Cap, 1 CAP PO DAILY for 30 Days, #30 10/06/24 Apixaban Base (ELIQUIS) 5 Mg Tab, 1 TAB PO BID for 90 Days, #180 10/06/24 Furosemide (Furosemide) 40 Mg Tab, 1 TAB PO DAILY for 90 Days, #90 10/06/24 Information Source: Patient Mode of Arrival: EMS Severity: Moderate Timing: Weeks Duration: Since onset Associated signs and symptoms SOB, Tremors Past Medical History PAST MEDICAL HISTORY: AFIB, CHF, High Lipids, HTN Surgical History: Hernia Repair Family History Family History: Reviewed,noncontributory to illness Social History Smoker: Cigarettes, Less Than 1 Pack/Day Alcohol: Occasionally Drugs: Methamphetamine Lives In: Home Was a procedure done? Was a procedure done?: No EKG EKG : Pulse Rate (adult): 134 [place]: RAD Cardiac Rhythm: Afib Comments Borderline T abnormalities , no STEMI Differential Dx Considerations may include: Differential diagnoses considered includebut arenot limited to acute Bronchitis, Asthma, COPD, Pneumothorax, PE, CHF, Pulmonary HTN, Anemia, CO Poisoning, Methemoglobinemia, Hyperventilation, Metabolic Acidosis, Pulmonary Edema, Pneumonia, ACS, Pericardial Tamponade, Anxiety, other X-Ray, Labs, Meds, VS Vital Signs Date Time Temp Pulse Resp B/P (MAP) Pulse Ox O2 Delivery O2 Flow Rate FiO2 12/16/24 00:19 107/80 12/15/24 23:59 69 20 107/80 (89) 97 12/15/24 23:59 69 20 97 Nasal Cannula 2.0 12/15/24 23:59 97 Nasal Cannula* 2 28 12/15/24 23:28 134 12/15/24 22:36 98.9 124 24 112/69 98 98.9 12/15/24 22:32 134 Lab Test 12/16/24 00:20 12/15/24 23:31 Range/Units Troponin I High Sensitivity 31 32 </=54 ng/L White Blood Count 9.2 4.4-10.8 10^3/uL Red Blood Count 4.93 4.5-5.90 10^6/uL Hemoglobin 12.4 L 13.5-17.5 g/dL Hematocrit 39.6 L 41.0-53.0 % Mean Corpuscular Volume 80.3 80.0-100.0 fL Mean Corpuscular Hemoglobin 25.2 L 28.0-32.0 pg Mean Corpuscular Hemoglobin Concent 31.4 L 32.0-36.0 g/dL Red Cell Distribution Width 22.1 H 11.8-14.3 % Platelet Count 381 140-450 10^3/uL Mean Platelet Volume 7.9 6.9-10.8 fL Neutrophils (%) (Auto) 70.6 37.0-80.0 % Lymphocytes (%) (Auto) 9.9 L 10.0-50.0 % Monocytes (%) (Auto) 17.3 H 0.0-12.0 % Eosinophils (%) (Auto) 1.2 0.0-7.0 % Basophils (%) (Auto) 1.0 0.0-2.0 % Neutrophils # (Auto) 6.5 1.6-8.6 10 ^3/uL Lymphocytes # (Auto) 0.9 0.4-5.4 10 ^3/uL Monocytes # (Auto) 1.6 H 0-1.3 10 ^3/uL Eosinophils # (Auto) 0.1 0-0.8 10 ^3/uL Basophils # (Auto) 0.1 0-0.2 10 ^3/uL Nucleated Red Blood Cells 0.1 % Sodium Level 139 136-145 mmol/L Potassium Level 4.8 3.5-5.1 mmol/L Chloride Level 108 H 98-107 mmol/L Carbon Dioxide Level 21 20-31 mmol/L Anion Gap 10 5-15 Blood Urea Nitrogen 41 H 9-23 mg/dL Creatinine 1.29 0.700-1.30 mg/dL Glomerular Filtration Rate Calc 64 >90 mL/min BUN/Creatinine Ratio 31.8 H 10.0-20.0 Serum Glucose 106 74-106 mg/dL Calcium Level 8.9 8.7-10.4 mg/dL B-Type Natriuretic Peptide 3515.39 0-100 pg/mL Current Medications Medications (Trade) Dose Ordered Sig/Zainab Route Start Time Stop Time Status Last Admin Furosemide (Lasix Injection) 40 mg ONCE ONCE IV 12/16/24 00:00 12/16/24 00:01 DC 12/16/24 00:19 Tamsulosin HCl (Flomax) 0.4 mg ONCE ONCE PO 12/16/24 00:00 12/16/24 00:01 DC 12/16/24 00:[address] [address] Ph: [phone] DIAGNOSTIC IMAGING Diagnostic Imaging Report : [id number] Signed PATIENT: CARMEN BERNALACCT: [id number] UNIT: [id number] : 1965 LOC: ER ROOM / BED: / AGE / SEX: 59 / M ADM STATUS: REG ER SERVICE 56 ORDERING PHYSICIAN: ANABEL SEGURA MD PROCEDURE(s): CXR1 - CHEST XRAY 1 VIEW REASON: Shortness of breath ORDER NUMBER(s): [id number], ACCESSION NUMBER(s): [id number] CHEST RADIOGRAPH Indication: Shortness of breath Technique: Single frontal view of the chest was obtained COMPARISON: XY CHEST PORTABLE on DOS: 10/14/24, XY CHEST PORTABLE on DOS: 10/05/24, US CHEST ULTRASOUND on DOS: 10/03/24, XY CHEST PORTABLE on DOS: 10/03/24, XY CHEST PORTABLE on DOS: 09/05/24 FINDINGS: Lines and Tubes: None Lungs: Moderate interstitial pulmonary edema Pleura: Probable mild right pleural effusion No pneumothorax. Cardiomediastinal contours: Cardiomegaly Bones: Unremarkable IMPRESSION: 1. Moderate interstitial pulmonary edema. 2. Probable mild right pleural effusion. Time of 1ST Reevaluation: 00:14 Reevaluation 1ST: Unchanged Patient Education/Counseling: Other (Need for admission) Family Education/Counseling: No Family Present SEPSIS Sepsis Screen Date sepsis recognized/suspect: Dec 15, 2024 Time Sepsis recognized/suspect: 2239 Recent Procedure: No On Antibiotic Therapy: No Respiratory Rate >20: No Heart Rate >90: Yes Temp<36 C (96.8 F) or >38.3 C: No SBP <90 or MAP <65 mmHG: No New Acute Mental Status Change: No Is the patient on CPAP, BIPAP,: No Physician Orders Chest Xray 1 View (12/15/24 22:57) Titrate Oxygen (12/15/24 22:57) Oxygen (12/15/24 ) Continous Pulse Oximetry (12/15/24 22:57) Saline Lock (12/15/24 22:57) Vendor Management Specialist (12/15/24 ) Vital Signs Date Time Temp Pulse Resp B/P (MAP) Pulse Ox O2 Delivery O2 Flow Rate FiO2 12/16/24 00:19 107/80 12/15/24 23:59 69 20 107/80 (89) 97 12/15/24 23:59 69 20 97 Nasal Cannula 2.0 12/15/24 23:59 97 Nasal Cannula* 2 28 12/15/24 23:28 134 12/15/24 22:36 98.9 124 24 112/69 98 98.9 12/15/24 22:32 134 Laboratory Tests Test 12/15/24 23:31 White Blood Count 9.2 10^3/uL (4.4-10.8) Departure 1 Departure Time of Disposition: 00:42 Impression: Primary Impression: CHF exacerbation Additional Impression: Recurrent right pleural effusion Disposition: ADMITTED INPATIENT Condition: Serious Comments MDM: 59-year-old male with a history of CHF presents with worsening shortness of breath. Initial evaluation included thorough history, physical examination and appropriate diagnostic testing. Based on the clinical presentation and diagnostic findings, the patient appears to have CHF exacerbation and pleural effusion Lasix administered in the ED Given the complexity of the case and need for further management patient is being admitted to the hospitalist service for further monitoring, treatment and evaluation. Risks, benefits and alternatives of admission and proposed interventions were discussed with the patient. Patient is in agreement with the plan. Extensive evaluation was performed in attempt to identify or rule out: (See differential diagnosis section) The following tests were ordered, and results were reviewed by me and discussed with patient: (See diagnostic results section) The following test were independently interpreted by me: EKG I reviewed and agreed with the following test results read by other providers: Chest x-ray I reviewed the following notes from the pt's past medical encounters: August 03, 2024 for AFib with RVR Additional information was gathered from interviewing the following independent historians: N/A Discussion of management or test interpretation with external physician/other qualified health wound care technician: N/A Addressed an acute or chronic illness that poses a threat to life or bodily function: CHF exacerbation and pleural effusion Decision regarding hospitalization or escalation of hospital level of care: Risk and benefits of admission for further treatment of patient's condition was considered. Due to patient's current clinical condition, high risk of decline and poor outcome if discharged and need for further inpatient management and monitoring, patient will be admitted to the hospital. Drug therapy requiring intensive monitoring for toxicity: IV furosemide Parenteral controlled substances: N/A Decision regarding elective major surgery with identified patient or procedure risk factors: N/A Decision regarding emergency major surgery: N/A Decision not to resuscitate or to de-escalate care because of poor prognosis: N/A Diagnosis or treatment significantly limited by social determinants of health: N/A Critical Care Note Critical Care Time?: No Stability Stability form required: No Heart Score Heart Score: Heart Score Response (Comments) Value History Moderate Suspicious 1 EKG Normal 0 Age 45-64 1 Risk Factors 1 or 2 risk factors 1 Troponin Normal limit 0 Total 3 I personally scribed for ANABEL SEGURA MD ([email or web address]) on 12/15/24 at 23:28. Electronically submitted by Moon Sanchez ([facility]). I personally scribed for ANABEL SEGURA MD ([email or web address]) on 12/15/24 at 23:37. Electronically submitted by Moon Sanchez ([facility]). I personally scribed for ANABEL SEGURA MD ([email or web address]) on 12/15/24 at 23:39. Electronically submitted by Moon Sanchez ([facility]). I personally scribed for ANABEL SEGURA MD (DVMINCH) on 12/15/24 at 23:55. Electronically submitted by Moon Sanchez ([facility]ascular Imaging). I personally scribed for ANABEL SEGURA MD (DVMINCH) on 12/16/24 at 00:50. Electronically submitted by Moon Sanchez ([facility]). ANABEL SEGURA MD Dec 15, 2024 23:28
--- NOTE | 2024-12-15 23:38 | DVH ---
CHEST RADIOGRAPH Indication: Shortness of breath Technique: Single frontal view of the chest was obtained COMPARISON: XY CHEST PORTABLE on DOS: 10/14/24, XY CHEST PORTABLE on DOS: 10/05/24, US CHEST ULTRASOUND on DOS: 10/03/24, XY CHEST PORTABLE on DOS: 10/03/24, XY CHEST PORTABLE on DOS: 09/05/24 FINDINGS: Lines and Tubes: None Lungs: Moderate interstitial pulmonary edema Pleura: Probable mild right pleural effusion No pneumothorax. Cardiomediastinal contours: Cardiomegaly Bones: Unremarkable IMPRESSION: 1. Moderate interstitial pulmonary edema. 2. Probable mild right pleural effusion.
[2024-12-15 23:59] LABS: Hematocrit 39.6 % (41.0-53.0); Hemoglobin 12.4 g/dL (13.5-17.5); Mean Corpuscular Hemoglobin 25.2 pg (28.0-32.0); Mean Corpuscular Volume 80.3 fL (80.0-100.0); Nucleated Red Blood Cells % 0.1 %
[2024-12-16 00:08] LABS: Potassium 4.8 mmol/L (3.5-5.1); Sodium 139 mmol/L (136-145)
[2024-12-16] MEDS: TAMSULOSIN HYDROCHLORIDE 0.4 MG CAP PO ONE (00:08)
[2024-12-16 00:09] LABS: Anion Gap 10 (5-15); Calcium 8.9 mg/dL (8.7-10.4); Carbon Dioxide 21 mmol/L (20-31)
[2024-12-16 00:12] LABS: Chloride 108 mmol/L (98-107)
[2024-12-16 00:14] LABS: BUN/Creatinine Ratio 31.8 (10.0-20.0); Glucose 106 mg/dL (74-106)
[2024-12-16 00:16] LABS: Blood Urea Nitrogen 41 mg/dL (9-23)
[2024-12-16] MEDS: FUROSEMIDE 40 MG/4 ML VIAL IV ONE (00:19)
--- NOTE | 2024-12-16 02:14 | DVHHPRES ---
History of Present Illness Resident Creating Document: JIM SANDOVAL RESIDENT History of Present Illness Gilbert Barth is a 59 year-old male, with past medical history of CHF, hypertension, hyperlipidemia and BPH. The patient presented to the ED via EMS with a chief complaint of 2 weeks of progressive shortness of breath, and reports his lungs are "full of liquid", associated with abdominal fullness sensation, wet cough and bilateral leg swelling that ascends up to his tights. The patient reports he has run out of his CHF medication for the last month, he had a hernia repair surgery a month ago and was not able to refill his medications. The patient reports having recurrent pleural effusion that requires thoracocentesis in every CHF exacerbation. The patient denies fever, chills, chest pain, dizziness or weakness. Initial evaluation in the ED the chest xray showed moderate interstitial pulmonary edema, probable mild right pleural effusion. Labs showed, BNP: 3,515.39, troponins 33 and 31. The patient will be admitted for further evaluation and management. Cardiovascular: CHF, HTN, hyperipidemia Past Surgical History: Hernia Repair Family History: DM, Hypertension Smoke: Quit (Used to smoke a pack of cigarrets every day for 15 years. Quit 1 year ago. ) ALCOHOL: occassional Drugs: Other (Quit methamphetamines 1 month ago) Lives: with Family Review of Systems Constitutional: No: Fever, Chills, Sweats, Weakness, Malaise, Other Eyes: No: Pain, Vision change, Conjunctivae inflammation, Eyelid inflammation, Other, Redness ENT: No: Ear pain, Ear discharge, Nose pain, Nose discharge, Nose congestion, Mouth pain, Mouth swelling, Throat pain, Throat swelling, Other Respiratory: Cough, Shortness of breath, SOB with excertion Cardiovascular: Lt Headedness; No: Chest Pain, Palpitations, Orthopnea, Paroxysmal Noc. Dyspnea, Edema, Other Gastrointestinal: No: Nausea, Vomiting, Abdominal Pain, Diarrhea, Constipation, Melena, Hematochezia, Other Genitourinary: No Dysuria, No Frequency, No Incontinence, No Hematuria, No Retention, No Other Musculoskeletal: No: other, neck pain, shoulder pain, arm pain, back pain, hand pain, leg pain, foot pain Skin: No: Rash, Lesions, Jaundice, Bruising, Other Neurological: No: Weakness, Numbness, Incoordination, Change in speech, Confusion, Seizures, Other Allergies: Coded Allergies: Amiodarone (Verified Allergy, Unknown, 08/16/23) Metoprolol (Verified Allergy, Unknown, rapid decrease in blood pressure, 02/13/24) Penicillins (Verified Allergy, Unknown, 06/09/23) Exam Vital Signs Vital Signs Date Time Temp Pulse Resp B/P (MAP) Pulse Ox O2 Delivery O2 Flow Rate FiO2 12/16/24 00:19 107/80 12/15/24 23:59 69 20 97 12/15/24 23:59 Nasal Cannula 2.0 12/15/24 23:59 28 12/15/24 22:36 98.9 98.9 General Appearance: Alert, Oriented X3, Cooperative, moderate distress HEENT: Atraumatic, Mucous membr. moist/pink Respiratory: Other (Tachypneic, reduced lung expancion bilaterally, crackles in bilateral upper and middle lung echevarria.) Cardiovascular: Other (Tachycardic, irrigular heart beats. ) Abdominal: Normal bowel sounds, Other (distended, tense to palpation. ) Extremities: No clubbing, No cyanosis, Other (Billateral swelling pitting edema up to the thights. ) Skin: No rashes, No breakdown, No significant lesion Neuro: Normal gait, Normal speech, Strength at 5/5 X4 ext, Normal tone, Sensation intact Psych/Mental Status: Mental status NL, Mood NL Labs/Xrays Labs Test 12/16/24 00:20 12/15/24 23:31 Range/Units Troponin I High Sensitivity 31 </=54 ng/L White Blood Count 9.2 4.4-10.8 10^3/uL Red Blood Count 4.93 4.5-5.90 10^6/uL Hemoglobin 12.4 L 13.5-17.5 g/dL Hematocrit 39.6 L 41.0-53.0 % Mean Corpuscular Volume 80.3 80.0-100.0 fL Mean Corpuscular Hemoglobin 25.2 L 28.0-32.0 pg Mean Corpuscular Hemoglobin Concent 31.4 L 32.0-36.0 g/dL Red Cell Distribution Width 22.1 H 11.8-14.3 % Platelet Count 381 140-450 10^3/uL Mean Platelet Volume 7.9 6.9-10.8 fL Neutrophils (%) (Auto) 70.6 37.0-80.0 % Lymphocytes (%) (Auto) 9.9 L 10.0-50.0 % Monocytes (%) (Auto) 17.3 H 0.0-12.0 % Eosinophils (%) (Auto) 1.2 0.0-7.0 % Basophils (%) (Auto) 1.0 0.0-2.0 % Neutrophils # (Auto) 6.5 1.6-8.6 10 ^3/uL Lymphocytes # (Auto) 0.9 0.4-5.4 10 ^3/uL Monocytes # (Auto) 1.6 H 0-1.3 10 ^3/uL Eosinophils # (Auto) 0.1 0-0.8 10 ^3/uL Basophils # (Auto) 0.1 0-0.2 10 ^3/uL Nucleated Red Blood Cells 0.1 % Sodium Level 139 136-145 mmol/L Potassium Level 4.8 3.5-5.1 mmol/L Chloride Level 108 H 98-107 mmol/L Carbon Dioxide Level 21 20-31 mmol/L Anion Gap 10 5-15 Blood Urea Nitrogen 41 H 9-23 mg/dL Creatinine 1.29 0.700-1.30 mg/dL Glomerular Filtration Rate Calc 64 >90 mL/min BUN/Creatinine Ratio 31.8 H 10.0-20.0 Serum Glucose 106 74-106 mg/dL Calcium Level 8.9 8.7-10.4 mg/dL B-Type Natriuretic Peptide 3515.39 0-100 pg/mL SEPSIS Sepsis Screen Date sepsis recognized/suspect: Dec 15, 2024 Time Sepsis recognized/suspect: 2239 Recent Procedure: No On Antibiotic Therapy: No Respiratory Rate >20: No Heart Rate >90: Yes Temp<36 C (96.8 F) or >38.3 C: No SBP <90 or MAP <65 mmHG: No New Acute Mental Status Change: No Is the patient on CPAP, BIPAP,: No Physician Orders Chest Xray 1 View (12/15/24 22:57) Troponin-I Hs (12/16/24 01:57) Titrate Oxygen (12/15/24 22:57) Oxygen (12/15/24 ) Continous Pulse Oximetry (12/15/24 22:57) Saline Lock (12/15/24 22:57) Compressed Yeast Supervisor (12/15/24 ) Admit (12/16/24 01:42) Code Status (12/16/24 01:42) Vital Signs .PER UNIT PROTOCOL (12/16/24:42) Review Orders With Adm. (12/16/24 01:42) Bedside Commode (12/16/24 01:42) Notify Md Of Changes From Base (12/16/24 01:42) Advance Directive (12/16/24:42) Echo 2d Mode Cardiac Dop (12/16/24 01:42) Basic Metabolic Panel (12/16/24 01:42) Urinalysis (12/16/24:42) Patient Condition (12/16/24:42) Allergies (12/16/24:42) Drug Screen (12/16/24 01:42) Notify Md Of Changes From Base (12/16/24 01:42) Oxygen By Nasal Cannula (12/16/24:42) Direct Service Worker For 24 Hours (12/16/24:42) Pantoprazole Tablet (Protonix Tablet) (12/16/24 10:00) Complete Blood Count (12/16/24 04:00) Comprehensive Metabolic Panel (12/16/24 04:00) * Cardiology Consult (12/16/24 01:42) Vital Signs Date Time Temp Pulse Resp B/P (MAP) Pulse Ox O2 Delivery O2 Flow Rate FiO2 12/16/24 00:19 107/80 12/15/24 23:59 69 20 107/80 (89) 97 12/15/24 23:59 69 20 97 Nasal Cannula 2.0 12/15/24 23:59 97 Nasal Cannula* 2 28 12/15/24 23:28 134 12/15/24 22:36 98.9 124 24 112/69 98 98.9 12/15/24 22:32 134 Laboratory Tests Test 12/15/24 23:31 White Blood Count 9.2 10^3/uL (4.4-10.8) Medications Medications Dose Ordered Sig/Zainab Route Start Time Stop Time Status Last Admin Dose Admin Furosemide 40 mg ONCE ONCE IV 12/16/24 00:00 12/16/24 00:01 DC 12/16/24 00:19 40 MG Tamsulosin HCl 0.4 mg ONCE ONCE PO 12/16/24 00:00 12/16/24 00:01 DC 12/16/24 00:08 0.4 MG Assessment/Plan Assessment/Plan #Acute hypoxic respiratory failure #Acute on Chronic CHF Systolic vs Diastolic. BNP: 3,515.39 O2 2L 97% Lasix 40mg IV Spironolactone 25mg Strict I&O ECHOD2 Cardiac consult #Atrial fibrillation EKG: Atrial fibrillation Telemetry Carvedilol 3.125mg Apixaban 5mg [id number] score 2 #Pleural Effusion Lasix 40mg IV Radiology consult, consider thoracocentesis. #Essential Hypertension Medication reconciliation #Hyperlipidemia Lipid panel. Cardiac diet DVT prophylaxis- Apixaban PUD prophylaxis Protonic. Goals of care discussed with the patient > 35 min. Discussed plan of care with Dr. Miller Code status: Full code PCP: Dr. Martinez Plan discussed with: Patient, the patient agrees with the admission plan. Plan discussed with: Patient My Orders Orders - JIM SANDOVAL RESIDENT Procedure Category Date Status Time Admit ADMIT 12/16/24 Transmitted 01:42 Code Status CODE 12/16/24 Transmitted 01:42 Vital Signs BANNER 12/16/24 Transmitted 01:42 Review Orders With BANNER 12/16/24 Transmitted Adm. 01:42 Bedside Commode BANNER 12/16/24 Transmitted 01:42 Notify Of Changes BANNER 12/16/24 Transmitted From Base 01:42 Advance Directive BANNER 12/16/24 Transmitted 01:42 Echo 2d Mode Cardiac US 12/16/24 Transmitted DOP 01:42 Basic Metabolic Panel LAB 12/16/24 Transmitted 01:42 Urinalysis LAB 12/16/24 Transmitted 01:42 Patient Condition ORDERS 12/16/24 Transmitted 01:42 Allergies BANNER 12/16/24 Transmitted 01:42 Drug Screen LAB 12/16/24 Transmitted 01:42 Notify Of Changes BANNER 12/16/24 Transmitted From Base 01:42 Oxygen By Nasal RT 12/16/24 Transmitted Cannula 01:42 Direct Service Worker For BANNER 12/16/24 Transmitted 24 Hours 01:42 Pantoprazole Tablet PHA 12/16/24 Transmitted (Protonix Tablet) 10:00 Complete Blood Count LAB 12/16/24 Transmitted 04:00 Comprehensive LAB 12/16/24 Transmitted Metabolic Panel 04:00 * Cardiology Consult CONS 12/16/24 Transmitted 01:42 Date of Service: Dec 16, 2024 Billing Provider: JOHN MILLER MD Common Visit Codes: 32036-VYRLONA INP/OBS CARE (HIGH) Secondary Visit Codes: 77254-[id number] CARE PLAN 30 MINUTES JIM SANDOVAL RESIDENT Dec 16, 2024 02:14
[2024-12-16] MEDS: CARVEDILOL 3.125 MG TAB PO SCH ×2 (02:15→10:00)
[2024-12-16] MEDS: SPIRONOLACTONE 25 MG TAB PO SCH (04:10)
[2024-12-16] MEDS ORDERED: FUROSEMIDE 40 MG/4 ML VIAL IV SCH (06:00)
[2024-12-16 06:58] LABS: Alanine Aminotransferase 16 U/L (7-40); Albumin 3.9 g/dL (3.2-4.8); Anion Gap 11 (5-15); BUN/Creatinine Ratio 31.3 (10.0-20.0); Calcium 8.7 mg/dL (8.7-10.4); Carbon Dioxide 22 mmol/L (20-31); Chloride 106 mmol/L (98-107); Potassium 4.3 mmol/L (3.5-5.1); Sodium 139 mmol/L (136-145); Total Protein 6.3 g/dL (5.7-8.2)
[2024-12-16 06:59] LABS: Alkaline Phosphatase 225 U/L (46-116); Bilirubin, Total 2.1 mg/dL (0.2-1.0); Blood Urea Nitrogen 42 mg/dL (9-23); Glucose 119 mg/dL (74-106)
[2024-12-16 07:18] LABS: Triglycerides 81 mg/dL (< 150)
[2024-12-16 07:20] LABS: Cholesterol 128 mg/dL (< 200)
[2024-12-16 07:21] LABS: HDL Cholesterol 23 mg/dL (40-59)
[2024-12-16] MEDS ORDERED: FUROSEMIDE 20 MG/2 ML VIAL IV ONE (08:45)
--- NOTE | 2024-12-16 08:45 | DVH ---
Bilateral Chest Sonogram Date: 12/16/2024 07:22 AM Clinical history: FLUID CHECK FOR POSSIBLE THORACENTESIS Findings: Limited sonographic evaluation of the right and left chest was performed to localize and karel fluid f or thoracentesis. There is a moderate right pleural effusion. Trace left pleural effusion IMPRESSION: Moderate right pleural effusion END IMPRESSION:
[2024-12-16] MEDS: FUROSEMIDE 100 MG/10ML VIAL IV SCH ×2 (09:54→13:00)
[2024-12-16] MEDS: ATORVASTATIN 20 MG TAB PO ONE (09:54)
[2024-12-16] MEDS ORDERED: SPIRONOLACTONE 25 MG TAB PO SCH (10:00)
[2024-12-16] MEDS: PANTOPRAZOLE 40 MG TAB PO SCH (10:00)
[2024-12-16] MEDS: EMPAGLIFLOZIN 10 MG TAB PO SCH (10:00)
[2024-12-16] MEDS ORDERED: APIXABAN 5 MG TAB PO SCH (10:00)
--- NOTE | 2024-12-16 10:53 | DVH ---
PROCEDURE: Ultrasound-guided thoracentesis Procedural Personnel Attending physician(s): Collin Bean Fellow physician(s): None Resident physician(s): None A dvanced practice provider(s): None Pre-procedure diagnosis: Dyspnea Post-procedure diagnosis: Same Indication: Therapeutic Additional clinical history: None Complications: No immediate complications. IMPRESSION: Ultrasound-guided thoracentesis with drainage of 3150 mL of serous fluid. Plan: Resume care by clinical team. Fluid analysis pending. PROCEDURE SUMMARY: - Ultrasound-guided thoracentesis - additional procedure(s): None PROCEDURE DETAILS: Pre-procedure Consent: Informed consent for the procedure including risks, benefits and alternatives was obtained and time-out was performed prior to the procedure. Preparation: The site was prepared an d draped using maximal sterile barrier technique including cutaneous antisepsis. Anesthesia/sedation level of anesthesia/sedation: No sedation Anesthesia/sedation administered by: Not applicable Total intra-service sedation time (minutes): Not applicable Limited thoracic ultrasound Limited thoracic ultrasound was performed. Left hemithorax findings: Not investigated Right hemithorax findings: Large pleural effusion Thoracentesis Local anesthesia was administered. A safe window for thoracentesis was identified with ultrasound. Th e pleural space was accessed and fluid return confirmed position. The fluid was drained. The catheter was removed and a sterile dressing was applied. Catheter size (Fr):5 Catheter valve: Yes Fluid appearance: serous Volume drained (mL): 3150 Post-drainage ultrasound: No visible effusion Additional Details Additional description of procedure: None Registry event: V/3/f Device used: None Equipment details: None Specimens removed: Aspirated fluid was sent for analysis. Estimated blood loss (mL): Less than 10 Standardized report: [email or web address] Attestation Signer name: Collin Bean I attest that I was present for the entire procedure. I reviewed the stored images and agree with the report as written.
--- NOTE | 2024-12-16 11:17 | DVH ---
EXAM: XY CHEST PORTABLE Indication: POST THORACENTESIS Technique: Single frontal view of the chest was obtained Comparison: XY CHEST XRAY 1 VIEW on DOS: 12/15/24, XY CHEST PORTABLE on DOS: 10/14/24, XY CHEST PORTABL E on DOS: 10/05/24, XY CHEST PORTABLE on DOS: 10/03/24, XY CHEST PORTABLE on DOS: 09/05/24 FINDINGS: Lines and Tubes: None Lungs: Suggestion of trace loculated fluid in the right horizontal fissure. Pulmonary edema. No pneumothorax. Cardiomediastinal contours: Cardiomegaly. Bones: No acute osseous abnormality. IMPRESSION: Suggestion of trace loculated fluid in the right horizontal fissure. Pulmonary edema. Cardiomegaly. Pulmonary edema.
[2024-12-16 11:56] LABS: Urine Protein, UAD TRACE (Negative)
[2024-12-16 12:20] LABS: Amphetamine Screen, Urine Neg (NEGATIVE)
[2024-12-16 12:21] LABS: Barbiturate Scree,Urine Neg (NEGATIVE); Benzodiazephine Screen, Urine Neg (NEGATIVE); Cannabinoid Screen, Urine Neg (NEGATIVE); Cocaine Screen, Urine Neg (NEGATIVE); Opiate Scree,Urine Neg (NEGATIVE); Phencyclidine Screen, Urine Neg (NEGATIVE)
[2024-12-16] MEDS: ENOXAPARIN SOD 100 MG/1 ML SYRINGE SC ONE (13:00)
[2024-12-16 13:23] VITALS: BP 87/51; PULSE 57; RESP 16; TEMP 98.1; O2SAT 96
[2024-12-16 13:24] VITALS: BP 86/56; PULSE 74; PULSE 76; RESP 16; TEMP 98.4; O2SAT 96
[2024-12-16 15:35] LABS: Hemoglobin 12.6 g/dL (13.5-17.5); Mean Corpuscular Hemoglobin 25.0 pg (28.0-32.0)
--- NOTE | 2024-12-16 15:35 | DVHPNRES ---
Progress Note Date Seen: Dec 16, 2024 Resident Creating Document: RAJANI CLAROS RESDIENT Medical Necessity Reason Pt with a Central, PICC or Fol: No Subjective Review of Systems This is a 59-year-old male with past medical history of heart failure (HFrEF, methamphetamine induced, EF 20%), permanent AFib (on Eliquis), BPH, recurrent right-sided pleural effusion/thoracentesis, hypertension and dyslipidemia came to the hospital due to shortness of breath since 1 week. Patient was recently discharged from hospital (had admitted due to CHF exacerbation), per patient he could not get his medicine including urine pills, since discharge he has shortness of breaths which progressively worsened and prompted this visit. Per patient, he has shortness of bed at baseline (Functional Class III) but recently has worsened. He also reports orthopnea, PND, generalized weakness. He denies fever, chest pain, cough, nausea, vomiting, or any recent sick contact. Of note, during last admission the patient underwent thoracentesis (took out 1.5 L of fluid), fluid analysis could not meet light criteria. Previous hospitalization: Had admitted on 09/02/2024, due to CHF exacerbation PMHx: heart failure (HFrEF, methamphetamine induced, EF 20%), permanent AFib (on Eliquis), BPH, recurrent right-sided pleural effusion/thoracentesis, hypertension and dyslipidemia PSHx: Not significant Family history: Noncontributory Social history: Ex methamphetamine user, ex marijuana user, received ex-smoker, denies any current drug use. Home medication: Eliquis 5 mg b.i.d., digoxin 0.125 mg, has been, atorvastatin, Jardiance, Lasix 40 mg daily, Entresto, Aldactone, and carvedilol, but the patient does not take any medicine the med. Allergic history: Amiodarone, metoprolol and penicillin Patient seen and examined at bedside. Patient is still complaining of shortness of breaths. Objective vital signs Vital Sign Date Time Temp Pulse Resp B/P (MAP) Pulse Ox O2 Delivery O2 Flow Rate FiO2 12/16/24 13:23 98.1 57 16 87/51 (63) 96 98.1 12/15/24 23:59 Nasal Cannula 2.0 12/15/24 23:59 28 medications Current Medications Medications Dose Ordered Sig/Zainab Route Start Time Stop Time Status Last Admin Dose Admin Pantoprazole Sodium 40 mg DAILY PO 12/16/24 10:00 Spironolactone 25 mg DAILY PO 12/16/24 02:15 12/16/24 04:10 25 MG Spironolactone 25 mg DAILY PO 12/16/24 10:00 Cancel Empaglifozin 10 mg DAILY PO 12/16/24 10:00 Carvedilol 3.125 mg Q12HR PO 12/16/24 10:00 Atorvastatin Calcium 40 mg HS PO 12/17/24 22:00 Furosemide 80 mg DAILY IV 12/16/24 13:00 Enoxaparin Sodium 90 mg Q12HR SC 12/16/24 22:00 Sacubitril/ Valsartan 1 tab BID PO 12/16/24 22:00 Examination General Appearance: Alert, Oriented X3, Cooperative, No acute distress HEENT: Atraumatic, PERRLA, EOMI, Mucous membrane moist/pink Respiratory: Decrease right-sided breath sounds with bilateral crackles Cardiovascular: Regular rate, Normal S1, Normal S2, No murmurs, no chest wall tenderness Abdominal: Normal bowel sounds, Soft, No tenderness, No hepatospenomegaly, No masses Extremities: Bilateral lower zone grade 2 pedal edema Skin: No rashes, No breakdown, No significant lesion Neuro: Normal gait, Normal speech, Strength at 5/5 X4 ext, Normal tone, Sensation intact, Cranial nerves 3-12 NL, Reflexes 2+ Psych/Mental Status: Mental status NL, Mood NL laboratory and microbiology Laboratory Tests 12/16/24 02:24 Test 12/16/24 02:24 Range/Units Serum Glucose 119 H 74-106 mg/dL Labs and/or images reviewed: Labs reviewed by me, Image(s) reviewed by me Problem List/Assessment/Plan Problem List/Assessment/Plan Acute hypoxic respiratory failure, likely due to CHF exacerbation Acute on chronic systolic heart failure Acute pulmonary edema, due to systolic heart failure Dilated cardiomyopathy, methamphetamine induced, EF 20% Right-sided pleural effusion, likely due to heart failure Atrial fibrillation with RVR Secondary hypercoagulability ROBERTO, likely VMN Methamphetamine use disorder Hypertension Dyslipidemia Possible pulmonary hypertension Moderate tricuspid valve regurgitation * EKGs shows, atrial fibrillation with rapid ventricular response, no significant ST or T-wave changes * Serial trop I is within normal limits, BNP is raised at 3500s * Echo from 09/04/2024 shows biatrial enlargement, severe LV global hypokinesia with EF 20% * [place] heart failure diagnostic criteria: Positive for the heart failure * Vasc score: 2 Plan/Recommendation * IV diuretic Lasix 80 mg daily * Spironolactone, Entresto, carvedilol and Jardiance * Consulted Radiology, performed thoracentesis and drained 3 L of fluid * Oxygen through nasal cannula * Consulted for methamphetamine use cessation DIET: Cardiac diet DVT PROPHYLAXIS: Lovenox therapeutic dose CODE STATUS: Goal of care discussed for more than 18 minutes, full code DISPOSITION: Med surge Patient's status and plan discussed with the patient. Case discussed with Dr. Perez. Plan discussed with: Patient, Other (RN) My Orders My Orders Orders - RAJANI CLAROS Procedure Category Date Status Time Empagliflozin PHA 12/16/24 In Process (Jardiance) 10:00 Carvedilol Tablet PHA 12/16/24 In Process (Coreg Tablet) 10:00 Communication Order ORDERS 12/16/24 Transmitted 08:40 Atorvastatin (Lipitor) PHA 12/17/24 In Process 22:00 Furosemide Injection PHA 12/16/24 In Process (Lasix Injection) 13:00 Enoxaparin Sodium PHA 12/16/24 In Process (Lovenox) 22:00 Sacubitril-Valsartan PHA 12/16/24 In Process (Entresto 24-26 Mg 22:00 Strict I&O ED NURSING 12/16/24 Transmitted Basic Metabolic Panel LAB 12/17/24 Verified 04:00 Date of Service: Dec 16, 2024 Billing Provider: JONELLE PEREZ MD Common Visit Codes: [id number] INP/OBS CARE(HIGH) RAJANI CLAROS RESDIENT Dec 16, 2024 15:35 JONELLE PEREZ MD Dec 19, 2024 22:14
[2024-12-16 15:36] LABS: Hematocrit 41.0 % (41.0-53.0); Mean Corpuscular Volume 81.0 fL (80.0-100.0); Nucleated Red Blood Cells % 0.1 %
[2024-12-16 16:43] VITALS: BP 75/55; PULSE 50; RESP 26; TEMP 98.2; O2SAT 97
--- NOTE | 2024-12-16 18:28 | DVHSR ---
APPROVED REPORT EXAM: LIMITED Two-dimensional and M-mode echocardiogram with Doppler and color Doppler. Blood Pressure: 107/80 mmHg INDICATION CHF exacerbation RISK FACTORS Height: 5'10", Weight: 190 DIMENSIONS LVDd5.0 (3.8-5.7cm)LA (2D)3.8 (1.9-4.0cm)Aortic Root (2.0-3.7cm) LVDs4.8 (2.5-4.0cm)LA (MM) (1.9-4.0cm)Aortic Cusp Exc (1.5-2.0cm) EF (%) 15.0 (55-70%)Rt. Atrium7.1 (1.9-4.0cm)Asc. Aorta cm IVSd0.9 (0.7-1.1cm)RV (D)6.3 (1.8-2.4cm) PWd1.1 (0.7-1.1cm) Mitral Valve MitralMitral Stenosis E/A ratio0.02D MVAcm2 Tricuspid Valve TR Velocity2.89m/s [id number] Other Information Technically limited study due to patient lying flat, limited repeat to eval ef. Conclusion DILATED ALL CARDIAC CHAMBERS SEVERE GLOBAL HYPOKINESIS OF LV AND RV LV EF IS ONLY 15% NORMAL VALVES MILD MR AND TR NO EFFUSION
[2024-12-16 20:00] VITALS: PULSE 120; PULSE 142; RESP 20; O2SAT 95
[2024-12-16 21:00] VITALS: BP 97/71; PULSE 65; RESP 20; TEMP 97.9; O2SAT 95
[2024-12-16] MEDS ORDERED: METOPROLOL TARTRATE 25 MG TAB PO SCH (22:15)
[2024-12-16] MEDS: ENOXAPARIN SOD 100 MG/1 ML SYRINGE SC SCH (22:26)
[2024-12-17] VITALS (8 sets, daily range): BP systolic 92–116; BP diastolic 68–83; PULSE 52–135; RESP 18; TEMP 97.5–98; O2SAT 91–99
--- NOTE | 2024-12-17 00:17 | DVHINCON2 ---
Date of service: Dec 16, 2024 Referring Physician Jayesh Reason for Consultation CHF exacerbation History of Present Illness This is a 59 year-old male with a PMH of CHF, High Lipids, HTN, who was brought in by EMS with a complaint of tremors with associated SOB x 2 weeks ago. Patient reports his lungs are "full of liquid". Patient reports running out of prescribed Eliquis for 1.5 weeks. Patient additionally states he has been experiencing abdominal "tightness", with no known relief. EKG shows A Fib at 134. Chest x-ray shows moderate interstitial pulmonary edema and probable mild right pleural effusion. Chest US shows moderate right pleural effusion. Troponin is negative. Patient was admitted to the hospital. I am asked to consult on this patient. Family History: FH: myocardial infarction G8 FATHER FH: natural G8 MOTHER 19 CHILD Allergies: Coded Allergies: Amiodarone (Verified Allergy, Unknown, 08/16/23) Metoprolol (Verified Allergy, Unknown, rapid decrease in blood pressure, 02/13/24) Penicillins (Verified Allergy, Unknown, 06/09/23) Home Meds Active Scripts Hydrocodone-Acetaminophen (Hydrocodone Bitartrate/AC 5-325 mg) 1 Tab Tab, 1 TAB PO QID PRN, #20 TAB Prov:TAMMI LYNN MD 10/17/24 Metronidazole (Metronidazole) 500 Mg Tab, 500 MG PO TID, #20 TAB Prov:TAMMI LYNN MD 10/17/24 Levofloxacin Hemihydrate (LEVAQUIN 500 MG) 500 Mg Tab, 1 TAB PO DAILY, #7 TAB Prov:TAMMI LYNN MD 10/17/24 Digoxin (Digoxin) 125 Mcg Tab, 125 MCG PO DAILY for 20 Days, #20 TAB Prov:RAJANI CLAROS RESDIENT 09/06/24 Acetaminophen (Acetaminophen) 500 Mg Tab, 500 MG PO QIDP, #30 TAB 0 Refills Prov:DONNELL BRITO 04/15/24 Carvedilol (COREG) 3.125 Mg Tab, 3.125 MG PO Q12HR for 30 Days, #60 TAB Prov:ANTIONE LAU 02/15/24 Spironolactone (Aldactone) 25 Mg Tab, 12.5 MG PO DAILY for 30 Days, #15 TAB 6 Refills Prov:JAH AYALA DO 08/19/23 Sacubitril-Valsartan (Entresto 24-26 mg) 1 Tab Tab, 1 TAB PO BID for 30 Days, #60 TAB 6 Refills Prov:JAH AYALA DO 08/19/23 Empagliflozin (Jardiance) 10 Mg Tab, 10 MG PO DAILY for 30 Days, #30 TAB 6 Refills Prov:JAH AYALA DO 08/19/23 Atorvastatin Calcium (ATORVASTATIN CALCIUM) 20 Mg Tab, 10 MG PO HS for 30 Days, #15 TAB 6 Refills Prov:JAH AYALA DO 08/19/23 Aspirin (Aspirin Low Dose) 81 Mg Tab, 81 MG PO DAILY for 30 Days, #30 TAB 6 Refills Prov:JAH AYALA DO 08/19/23 Reported Medications Potassium Chloride (Potassium Chloride ER) 10 Meq Tab, 1 TAB PO BID for 5 Days, #10 10/06/24 Tamsulosin Hcl (Tamsulosin Hcl) 0.4 Mg Cap, 1 CAP PO DAILY for 30 Days, #30 10/06/24 Apixaban Base (ELIQUIS) 5 Mg Tab, 1 TAB PO BID for 90 Days, #180 10/06/24 Furosemide (Furosemide) 40 Mg Tab, 1 TAB PO DAILY for 90 Days, #90 10/06/24 Current Medications Current Medications Medications (Trade) Dose Ordered Sig/Zainab Route PRN Reason Start Time Stop Time Status Last Admin Pantoprazole Sodium (Protonix Tablet) 40 mg DAILY PO 12/16/24 10:00 Carvedilol (Coreg Tablet) 3.125 mg Q12HR PO 12/16/24 02:15 12/16/24 08:46 DC Spironolactone (Aldactone) 25 mg DAILY PO 12/16/24 02:15 12/16/24 04:10 Furosemide (Lasix Injection) 40 mg BIDD IV 12/16/24 06:00 12/16/24 08:29 DC Apixaban (Eliquis) 5 mg BID PO 12/16/24 10:00 12/16/24 08:28 DC Spironolactone (Aldactone) 25 mg DAILY PO 12/16/24 10:00 Cancel Empaglifozin (Jardiance) 10 mg DAILY PO 12/16/24 10:00 Carvedilol (Coreg Tablet) 3.125 mg Q12HR PO 12/16/24 10:00 12/16/24 22:02 DC Atorvastatin Calcium (Lipitor) 40 mg HS PO 12/17/24 22:00 Furosemide (Lasix Injection) 60 mg BIDD IV 12/16/24 08:42 12/16/24 13:02 DC Furosemide (Lasix Injection) 80 mg DAILY IV 12/16/24 13:00 Enoxaparin Sodium (Lovenox) 90 mg Q12HR SC 12/16/24 22:00 12/16/24 22:26 Sacubitril/ Valsartan (Entresto 24-26 Mg tab) 1 tab BID PO 12/16/24 22:00 Hold Metoprolol Tartrate (Lopressor Tablet) 12.5 mg BID PO 12/16/24 22:15 12/16/24 22:16 DC Review of Systems Constitutional: No: Fever, Chills, Sweats, Weakness, Malaise, Other Eyes: No: Pain, Vision change, Conjunctivae inflammation, Eyelid inflammation, Other, Redness ENT: No: Ear pain, Ear discharge, Nose pain, Nose discharge, Nose congestion, Mouth pain, Mouth swelling, Throat pain, Throat swelling, Other Respiratory: Cough, Shortness of breath, SOB with excertion Cardiovascular: Lt Headedness; No: Chest Pain, Palpitations, Orthopnea, Paroxysmal Noc. Dyspnea, Edema, Other Gastrointestinal: No: Nausea, Vomiting, Abdominal Pain, Diarrhea, Constipation, Melena, Hematochezia, Other Genitourinary: No Dysuria, No Frequency, No Incontinence, No Hematuria, No Retention, No Other Musculoskeletal: No: other, neck pain, shoulder pain, arm pain, back pain, hand pain, leg pain, foot pain Skin: No: Rash, Lesions, Jaundice, Bruising, Other Neurological: No: Weakness, Numbness, Incoordination, Change in speech, Confu leonardo, Seizures, Other Vital Signs Vital Signs Date Time Temp Pulse Resp B/P (MAP) Pulse Ox O2 Delivery O2 Flow Rate FiO2 12/16/24 21:00 97.9 65 20 97/71 (80) 95 97.9 12/16/24 13:24 Room Air* 0 21 Physical Exam GENERAL: Alert and oriented x 3. No acute distress. EYES: PERRL, EOMI. Anicteric. HENT: Moist mucous membranes. LUNGS: Diminished Breath Sounds Bilaterally with Wheezing. CARDIOVASCULAR: Regular rate and rhythm. ABDOMEN: Abdominal distention, firm, nontender. Bowel sounds are present and normoactive in all four quadrants. EXTREMITIES: No edema. NEUROLOGIC: No focal neurological deficits. SKIN: Warm, dry. Labs/Diagnostic Data Labs Test 12/16/24 15:21 12/16/24 11:06 12/16/24 10:40 12/16/24 02:27 Range/Units White Blood Count 12.5 #H 4.4-10.8 10^3/uL Red Blood Count 5.06 4.5-5.90 10^6/uL Hemoglobin 12.6 L 13.5-17.5 g/dL Hematocrit 41.0 41.0-53.0 % Mean Corpuscular Volume 81.0 80.0-100.0 fL Mean Corpuscular Hemoglobin 25.0 L 28.0-32.0 pg Mean Corpuscular Hemoglobin Concent 30.8 L 32.0-36.0 g/dL Red Cell Distribution Width 22.1 H 11.8-14.3 % Platelet Count 392 140-450 10^3/uL Mean Platelet Volume 8.0 6.9-10.8 fL Neutrophils (%) (Auto) 78.7 37.0-80.0 % Lymphocytes (%) (Auto) 6.3 L 10.0-50.0 % Monocytes (%) (Auto) 13.2 H 0.0-12.0 % Eosinophils (%) (Auto) 0.8 0.0-7.0 % Basophils (%) (Auto) 1.0 0.0-2.0 % Neutrophils # (Auto) 9.8 H 1.6-8.6 10 ^3/uL Lymphocytes # (Auto) 0.8 0.4-5.4 10 ^3/uL Monocytes # (Auto) 1.6 H 0-1.3 10 ^3/uL Eosinophils # (Auto) 0.1 0-0.8 10 ^3/uL Basophils # (Auto) 0.1 0-0.2 10 ^3/uL Nucleated Red Blood Cells 0.1 % Urine Color Yellow Yellow Urine Clarity Clear Clear Urine pH 5.0 5.0-9.0 Urine Specific [place] 1.017 1.001-1.035 Urine Protein Trace H Negative Urine Ketones Negative Negative Urine Blood Negative Negative /uL Urine Nitrite Negative Negative Urine Bilirubin Negative Negative Urine Urobilinogen 2 H Negative mg/dL Urine Leukocyte Esterase Negative Negative /uL Urine RBC 1 0 - 3 /hpf Urine Microscopic WBC 1 0-3 /HPF Urine Squamous Epithelial Cells None seen <5 /hpf Urine Bacteria None seen None Seen /hpf Urine Hyaline Casts Few 0 - 2 /lpf Urine Mucus Few None Seen Urine Glucose Normal Normal mg/dL Urine Opiates Screen Neg NEGATIVE Urine Fentanyl Screen Neg NEGATIVE Urine Barbiturates Screen Neg NEGATIVE Urine Phencyclidine Screen Neg NEGATIVE Urine Amphetamines Screen Neg NEGATIVE Urine Benzodiazepines Screen Neg NEGATIVE Urine Cocaine Screen Neg NEGATIVE Urine Cannabinoids Screen Neg NEGATIVE Body Fluid Source Pleural fluid Body Fluid pH 8.0 Body Fluid WBC (Manual) 233 H 0-200 CUMM Body Fluid RBC (Manual) 158 0-2000 CUMM Body Fluid Mononuclear Cells 90 % Body Fluid Polymorphonuclear Cells 10 0-25 % Troponin I High Sensitivity 28 </=54 ng/L Test 12/16/24 02:24 12/15/24 23:31 Range/Units Sodium Level 139 136-145 mmol/L Potassium Level 4.3 3.5-5.1 mmol/L Chloride Level 106 98-107 mmol/L Carbon Dioxide Level 22 20-31 mmol/L Anion Gap 11 5-15 Blood Urea Nitrogen 42 H 9-23 mg/dL Creatinine 1.34 H 0.700-1.30 mg/dL Glomerular Filtration Rate Calc 61 >90 mL/min BUN/Creatinine Ratio 31.3 H 10.0-20.0 Serum Glucose 119 H 74-106 mg/dL Calcium Level 8.7 8.7-10.4 mg/dL Total Bilirubin 2.1 H 0.2-1.0 mg/dL Aspartate Amino Transferase (AST) 28 13-40 U/L Alanine Aminotransferase (ALT) 16 7-40 U/L Alkaline Phosphatase 225 H 46-116 U/L Total Protein 6.3 5.7-8.2 g/dL Albumin 3.9 3.2-4.8 g/dL Triglycerides Level 81 < 150 mg/dL Cholesterol Level 128 < 200 mg/dL LDL Cholesterol 103 H < 100 mg/dL HDL Cholesterol 23 L 40-59 mg/dL B-Type Natriuretic Peptide 3515.39 0-100 pg/mL Assessment Acute hypoxic respiratory failure, likely due to CHF exacerbation. Acute on chronic systolic heart failure. Acute pulmonary edema. Dilated cardiomyopathy, methamphetamine induced, EF 20%. Right-sided pleural effusion. Atrial fibrillation with RVR. Secondary hypercoagulability. ROBERTO. Methamphetamine use disorder. Hypertension. Dyslipidemia. Moderate tricuspid valve regurgitation. Plan/Recommendation I agree with your ongoing assessment and care of plan. Echocardiogram. Lipitor. DVT and GI prophylactics. Diuretics with Lasix. Additional plan as per the hospital course. A total of 45 minutes was spent reviewing the patient record, examining the pa tient, making a diagnostic and therapeutic plan, discussing this plan with medical personnel, following up on diagnostic studies and following the patient for clinical stability excluding any and all procedures. At least 50% of this time was spent in direct, glcw-or-cxso contact. Plan discussed with: Patient MARTIN BLANCA MD Dec 17, 2024 00:17
[2024-12-17 01:46] LABS: COVID19 ANTIGEN SOFIA FIA NEGATIVE (NEGATIVE)
[2024-12-17 06:58] LABS: Anion Gap 7 (5-15); Carbon Dioxide 23 mmol/L (20-31); Chloride 106 mmol/L (98-107); Sodium 136 mmol/L (136-145)
[2024-12-17 07:01] LABS: Calcium 8.6 mg/dL (8.7-10.4); Potassium 5.2 mmol/L (3.5-5.1)
[2024-12-17 07:04] LABS: BUN/Creatinine Ratio 28.6 (10.0-20.0); Glucose 98 mg/dL (74-106)
[2024-12-17 07:16] LABS: Blood Urea Nitrogen 42 mg/dL (9-23)
--- NOTE | 2024-12-17 08:50 | ECG ---
[facility] Test Date: 2024-12-16 Test Time: 21:36:14 Pat Name: CARMEN BERNAL Department: Respiratoy Room: 0248T A Gender: M Configuration Specialist: HETAL : 1965 Requested By: RODO BLANCA Order Number: [id number] Reading MD: Shad Washington Measurements Intervals [place] Rate: 122 P: 0 MS: 0 QRS: 86 QRSD: 74 T: -89 QT: 309 QTc: 441 Interpretive Statements Atrial fibrillation RSR' in V1 or V2, right VCD or RVH Nonspecific T abnormalities, lateral leads Electronically Signed On 12-22-2024 22:12:37 PDT by Shad Washington Please click the below link to view image of tracing.
--- NOTE | 2024-12-17 08:50 | ECG ---
[facility] Test Date: 2024-12-16 Test Time: 21:35:26 Pat Name: CARMEN BERNAL Department: Respiratoy Room: 0248T A Gender: M Retail Business Development Manager: HETAL : 1965 Requested By: RAJANI CLAROS Order Number: [id number] Reading MD: Shad Washington Measurements Intervals [place] Rate: 114 P: 0 GA: 0 QRS: 82 QRSD: 86 T: -90 QT: 347 QTc: 478 Interpretive Statements Atrial fibrillation Borderline repolarization abnormality Borderline prolonged QT interval Electronically Signed On 12-22-2024 22:12:31 PDT by Shad Washington Please click the below link to view image of tracing.
[2024-12-17] MEDS: SACUBITRIL-VALSARTAN 24mg/26mg TAB PO SCH (10:38)
[2024-12-17 13:07] LABS: Glucose, Body Fluid 117.0 mg/dL (.); LD, Body Fluid 79.0 IU/L (.)
--- NOTE | 2024-12-17 15:25 | DVHPNRES ---
Progress Note Date Seen: Dec 17, 2024 Resident Creating Document: RAJANI CLAROS RESDIENT Medical Necessity Reason Pt with a Central, PICC or Fol: No Subjective Review of Systems Patient seen and examined at bedside. Patient is doing better since admission. But still have shortness of breaths Objective vital signs Vital Sign Date Time Temp Pulse Resp B/P (MAP) Pulse Ox O2 Delivery O2 Flow Rate FiO2 12/17/24 13:00 97.6 109 18 107/83 (91) 98 97.6 12/17/24 08:00 Room Air* 0 21 Total Intake and Output 12/16/24 12/16/24 12/17/24 15:00 23:00 07:00 Intake Total 594 ml 500 ml Output Total 150 ml 850 ml Balance 444 ml -350 ml medications Current Medications Medications Dose Ordered Sig/Zainab Route Start Time Stop Time Status Last Admin Dose Admin Pantoprazole Sodium 40 mg DAILY PO 12/16/24 10:00 12/17/24 10:40 40 MG Spironolactone 25 mg DAILY PO 12/16/24 02:15 12/17/24 10:39 25 MG Spironolactone 25 mg DAILY PO 12/16/24 10:00 Cancel Empaglifozin 10 mg DAILY PO 12/16/24 10:00 12/17/24 10:40 10 MG Atorvastatin Calcium 40 mg HS PO 12/17/24 22:00 Furosemide 80 mg DAILY IV 12/16/24 13:00 12/17/24 10:39 80 MG Enoxaparin Sodium 90 mg Q12HR SC 12/16/24 22:00 12/17/24 10:40 90 MG Sacubitril/ Valsartan 1 tab BID PO 12/16/24 22:00 Hold Examination General Appearance: Alert, Oriented X3, Cooperative, No acute distress HEENT: Atraumatic, PERRLA, EOMI, Mucous membrane moist/pink Respiratory: Bilateral lower zone crackles Cardiovascular: Regular rate, Normal S1, Normal S2, No murmurs, no chest wall tenderness Abdominal: Normal bowel sounds, Soft, No tenderness, No hepatospenomegaly, No masses Extremities: No clubbing, No cyanosis, No edema, Normal pulses, No tenderness/swelling Skin: No rashes, No breakdown, No significant lesion Neuro: Normal gait, Normal speech, Strength at 5/5 X4 ext, Normal tone, Sensation intact, Cranial nerves 3-12 NL, Reflexes 2+ Psych/Mental Status: Mental status NL, Mood NL laboratory and microbiology Laboratory Tests 12/17/24 06:00 12/16/24 15:21 Test 12/17/24 06:00 Range/Units Serum Glucose 98 74-106 mg/dL Microbiology Date/Time Source Procedure Growth Status 12/16/24 10:40 Pleural Fluid Gram Stain - Final Resulted 12/16/24 10:40 Pleural Fluid Aerobic Culture - Preliminary Resulted Labs and/or images reviewed: Labs reviewed by me, Image(s) reviewed by me Problem List/Assessment/Plan Problem List/Assessment/Plan Acute hypoxic respiratory failure, likely due to CHF exacerbation Acute on chronic systolic heart failure Acute pulmonary edema, due to systolic heart failure Dilated cardiomyopathy, methamphetamine induced, EF 20% Right-sided pleural effusion, likely due to heart failure Permanent Atrial fibrillation Secondary hypercoagulability ROBERTO, likely VMN Methamphetamine use disorder Hypertension Dyslipidemia Possible pulmonary hypertension Moderate tricuspid valve regurgitation * EKGs shows, atrial fibrillation with rapid ventricular response, no significant ST or T-wave changes * Serial trop I is within normal limits, BNP is raised at 3500s * Echo from 09/04/2024 shows biatrial enlargement, severe LV global hypokinesia with EF 20% * [place] heart failure diagnostic criteria: Positive for the heart failure * Vasc score: 2 * Echo performed, showed EF 15% Plan/Recommendation * IV diuretic Lasix 80 mg daily * Spironolactone, Entresto, carvedilol and Jardiance * Consulted Radiology, performed thoracentesis and drained 3 L of fluid * Oxygen through nasal cannula * Consulted for methamphetamine use cessation DIET: Cardiac diet DVT PROPHYLAXIS: Lovenox therapeutic dose CODE STATUS: Goal of care discussed for more than 18 minutes, full code DISPOSITION: Med surge Patient's status and plan discussed with the patient. Case discussed with Dr. Perez. Plan discussed with: Patient, Other (RN) Date of Service: Dec 17, 2024 Billing Provider: JONELLE PEREZ MD Common Visit Codes: [id number] INP/OBS CARE(HIGH) RAJANI CLAROS RESDIENT Dec 17, 2024 15:25 JONELLE PEREZ MD Dec 19, 2024 22:39
[2024-12-17] MEDS ORDERED: CALCIUM GLUC 1,000mg/50ml-NS 50 ML IV ONE (16:00)
[2024-12-17] MEDS: CALCIUM GLUC 1,000mg/50ml-NS 50 ML IV ONE (17:07)
[2024-12-17] MEDS: ATORVASTATIN 20 MG TAB PO SCH (21:35)
--- NOTE | 2024-12-17 23:46 | DVHPN2 ---
Progress Note - Dictate Date Seen: Dec 17, 2024 Medical Necessity Reason Pt with a Central, PICC or Fol: No Subjective Patient was seen and evaluated in follow up. Patient is s/p thoracentesis with approx 3150 ml of serous fluid removed. Patient reports feeling better today. 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 Influenza A/B, and COVID are negative. Telemetry reviewed. vital signs Vital Sign Date Time Temp Pulse Resp B/P (MAP) Pulse Ox O2 Delivery O2 Flow Rate FiO2 12/17/24 13:00 97.6 109 18 107/83 (91) 98 97.6 12/17/24 08:00 Room Air* 0 21 Total Intake and Output 12/16/24 12/16/24 12/17/24 15:00 23:00 07:00 Intake Total 594 ml 500 ml Output Total 150 ml 850 ml Balance 444 ml -350 ml medications Current Medications Medications Dose Ordered Sig/Zainab Route Start Time Stop Time Status Last Admin Dose Admin Pantoprazole Sodium 40 mg DAILY PO 12/16/24 10:00 12/17/24 10:40 40 MG Spironolactone 25 mg DAILY PO 12/16/24 02:15 12/17/24 10:39 25 MG Spironolactone 25 mg DAILY PO 12/16/24 10:00 Cancel Empaglifozin 10 mg DAILY PO 12/16/24 10:00 12/17/24 10:40 10 MG Atorvastatin Calcium 40 mg HS PO 12/17/24 22:00 Furosemide 80 mg DAILY IV 12/16/24 13:00 12/17/24 10:39 80 MG Enoxaparin Sodium 90 mg Q12HR SC 12/16/24 22:00 12/17/24 10:40 90 MG Sacubitril/ Valsartan 1 tab BID PO 12/16/24 22:00 Hold objective GENERAL: Alert and oriented x 3. No acute distress. EYES: PERRL, EOMI. Anicteric. HENT: Moist mucous membranes. LUNGS: Diminished Breath Sounds Bilaterally with Wheezing. CARDIOVASCULAR: Regular rate and rhythm. ABDOMEN: Abdominal distention, firm, nontender. Bowel sounds are present and normoactive in all four quadrants. EXTREMITIES: No edema. NEUROLOGIC: No focal neurological deficits. SKIN: Warm, dry. laboratory and microbiology Laboratory Tests 12/17/24 06:00 12/16/24 15:21 Test 12/17/24 06:00 Range/Units Serum Glucose 98 74-106 mg/dL Problem List Acute hypoxic respiratory failure, likely due to CHF exacerbation. Acute on chronic systolic heart failure. Acute pulmonary edema. Dilated cardiomyopathy, methamphetamine induced, EF 20%. Right-sided pleural effusion. Atrial fibrillation with RVR. Secondary hypercoagulability. ROBERTO. Methamphetamine use disorder. Hypertension. Dyslipidemia. Moderate tricuspid valve regurgitation. Assessment/Plan Continued all current supportive medical care. Lipitor. DVT and GI prophylactics. Diuretics with Lasix. Additional plan as per the hospital course. Plan discussed with: Patient MARTIN BLANCA MD Dec 17, 2024 14:33
[2024-12-18] VITALS (8 sets, daily range): BP systolic 90–144; BP diastolic 36–81; PULSE 64–118; RESP 16–20; TEMP 97.5–98.3; O2SAT 95–100
[2024-12-18 06:34] LABS: Hematocrit 39.9 % (41.0-53.0)
[2024-12-18 06:36] LABS: Hemoglobin 12.7 g/dL (13.5-17.5); Mean Corpuscular Hemoglobin 25.5 pg (28.0-32.0); Mean Corpuscular Volume 80.0 fL (80.0-100.0)
[2024-12-18 06:42] LABS: Chloride 103 mmol/L (98-107); Potassium 4.3 mmol/L (3.5-5.1); Sodium 136 mmol/L (136-145)
[2024-12-18 06:43] LABS: Anion Gap 8 (5-15); Carbon Dioxide 25 mmol/L (20-31)
[2024-12-18 06:45] LABS: Calcium 8.4 mg/dL (8.7-10.4)
[2024-12-18 06:48] LABS: BUN/Creatinine Ratio 25.5 (10.0-20.0); Glucose 95 mg/dL (74-106)
[2024-12-18 06:49] LABS: Blood Urea Nitrogen 38 mg/dL (9-23)
[2024-12-18 09:43] LABS: Anisocytosis Slight; Total Cells Counted 100.0 (100)
[2024-12-18 09:44] LABS: Ovalocytes FEW; Stomatocytes Few
--- NOTE | 2024-12-18 18:21 | DVHPNRES ---
Progress Note Date Seen: Dec 18, 2024 Resident Creating Document: JULES DONALD RESIDENT Medical Necessity Reason Pt with a Central, PICC or Fol: No Objective vital signs Vital Sign Date Time Temp Pulse Resp B/P (MAP) Pulse Ox O2 Delivery O2 Flow Rate FiO2 12/18/24 17:01 98.2 70 18 96/68 (77) 96 98.2 12/18/24 08:00 Room Air* 0 21 Total Intake and Output 12/17/24 12/17/24 12/18/24 15:00 23:00 07:00 Intake Total 2921 ml 230 ml Output Total 950 ml 700 ml Balance 1971 ml -470 ml medications Current Medications Medications Dose Ordered Sig/Zainab Route Start Time Stop Time Status Last Admin Dose Admin Pantoprazole Sodium 40 mg DAILY PO 12/16/24 10:00 12/18/24 09:55 40 MG Spironolactone 25 mg DAILY PO 12/16/24 02:15 12/18/24 09:55 25 MG Spironolactone 25 mg DAILY PO 12/16/24 10:00 Cancel Empaglifozin 10 mg DAILY PO 12/16/24 10:00 12/18/24 09:55 10 MG Atorvastatin Calcium 40 mg HS PO 12/17/24 22:00 12/17/24 21:35 40 MG Furosemide 80 mg DAILY IV 12/16/24 13:00 12/18/24 09:55 80 MG Enoxaparin Sodium 90 mg Q12HR SC 12/16/24 22:00 12/18/24 09:56 90 MG Examination General Appearance: Alert, Oriented X3, Cooperative, No acute distress HEENT: Atraumatic, PERRLA, EOMI, Mucous membrane moist/pink Respiratory: Bilateral lower zone crackles, was on 1 L NC now in room air Cardiovascular: Regular rate, Normal S1, Normal S2, No murmurs, no chest wall tenderness Abdominal: Normal bowel sounds, Soft, No tenderness, No hepatospenomegaly, No masses Extremities: No clubbing, No cyanosis, No edema, Normal pulses, No tenderness/swelling Skin: No rashes, No breakdown, No significant lesion Neuro: Normal gait, Normal speech, Strength at 5/5 X4 ext, Normal tone, Sensation intact, Cranial nerves 3-12 NL, Reflexes 2+ Psych/Mental Status: Mental status NL, Mood NL laboratory and microbiology Laboratory Tests 8/14/25 06:01 Test 12/18/24 06:01 Range/Units Serum Glucose 95 74-106 mg/dL Microbiology Date/Time Source Procedure Growth Status 12/16/24 10:40 Pleural Fluid Gram Stain - Final Resulted 12/16/24 10:40 Pleural Fluid Aerobic Culture - Preliminary Resulted Labs and/or images reviewed: Labs reviewed by me, Image(s) reviewed by me Problem List/Assessment/Plan Problem List/Assessment/Plan A 59-year-old male with a history of congestive heart failure, hyperlipidemia, and hypertension was brought in by EMS due to tremors and shortness of breath that began two weeks ago. He reports feeling like his lungs are "full of liquid" and has been off Eliquis for the past 1.5 weeks. He also complains of persistent abdominal tightness without relief. Evaluation revealed atrial fibrillation with a heart rate of 134 on EKG, moderate interstitial pulmonary edema and probable mild right pleural effusion on chest X-ray, and confirmed moderate right pleural effusion on chest ultrasound. Troponin levels were negative. The patient was admitted, and a consult was requested for further management. Assessment Acute hypoxic respiratory failure, likely due to CHF exacerbation, improved to room air Acute on chronic systolic heart failure Acute pulmonary edema, due to systolic heart failure Dilated cardiomyopathy Heart Failure with recuded EF 15%, NYHA III-IV Right-sided pleural effusion, likely due to heart failure s/p thoracocentesis 12/16 s/p 3 L fluid out Permanent Atrial fibrillation, Vasc score: 2+, on Lovenox therapeutic dose in hospital Secondary hypercoagulability due to anticoagulant CKD with ROBERTO, likely VMN Prior Methamphetamine use disorder, tox -ve Essential Hypertension Hyperbilirubinemia Dyslipidemia Moderate pulmonary hypertension RVSP 48 Moderate tricuspid valve regurgitation QTC prolongation Plan: Continue IV diuretic Lasix, GDMT, daily weight, in-out check 2670 u/o SC lovenox continue check CBC and CMP tomorrow given previous higher bilirubin Continue GDMT as tolerated, Methamphetamine cesation counseling Repeat x-ray, follow pleural fluid cultures Lipitor GI prophylaxis Telemetry, correct electrolytes and avoid qtc prolonging meds Likely a candidate for lifevest, AICD Needs close cardiology and PCP follow up with medication compliance Overall guarded prognosis Goals of care, clnical work and care plan discussed over 27 minutes. Likely discharge within next 24-48 hours. Case discussed with Dr. Perez. Plan discussed with: Patient My Orders My Orders Orders - JULES DONALD RESIDENT Procedure Category Date Status Time Complete Blood Count LAB 12/19/24 Verified 04:00 Comprehensive LAB 12/19/24 Verified Metabolic Panel 04:00 Chest Xray 1 View XY 12/18/24 Logged 18:01 Magnesium LAB 12/19/24 Verified 04:00 Schedule For Dc MICHAEL 12/18/24 Verified Clinic F/U 18:19 Date of Service: Dec 18, 2024 Billing Provider: JONELLE PEREZ MD Common Visit Codes: [id number] INP/OBS CARE(HIGH) JULES DONALD RESIDENT Dec 18, 2024 18:21 JONELLE PEREZ MD Dec 19, 2024 23:21
--- NOTE | 2024-12-18 23:20 | DVHPN2 ---
Progress Note - Dictate Date Seen: Dec 18, 2024 Medical Necessity Reason Pt with a Central, PICC or Fol: No Subjective Patient was seen and evaluated in follow up. Patient complains of generalized pain. 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 Electrolytes are being replaced. Telemetry reviewed. vital signs Vital Sign Date Time Temp Pulse Resp B/P (MAP) Pulse Ox O2 Delivery O2 Flow Rate FiO2 12/18/24 09:55 97/81 12/18/24 08:48 97.5 115 16 100 97.5 12/18/24 08:00 Room Air* 0 21 Total Intake and Output 12/17/24 12/17/24 12/18/24 15:00 23:00 07:00 Intake Total 2921 ml 230 ml Output Total 950 ml 700 ml Balance 1971 ml -470 ml medications Current Medications Medications Dose Ordered Sig/Zainab Route Start Time Stop Time Status Last Admin Dose Admin Pantoprazole Sodium 40 mg DAILY PO 12/16/24 10:00 12/18/24 09:55 40 MG Spironolactone 25 mg DAILY PO 12/16/24 02:15 12/18/24 09:55 25 MG Spironolactone 25 mg DAILY PO 12/16/24 10:00 Cancel Empaglifozin 10 mg DAILY PO 12/16/24 10:00 12/18/24 09:55 10 MG Atorvastatin Calcium 40 mg HS PO 12/17/24 22:00 12/17/24 21:35 40 MG Furosemide 80 mg DAILY IV 12/16/24 13:00 12/18/24 09:55 80 MG Enoxaparin Sodium 90 mg Q12HR SC 12/16/24 22:00 12/18/24 09:56 90 MG objective GENERAL: Alert and oriented x 3. No acute distress. EYES: PERRL, EOMI. Anicteric. HENT: Moist mucous membranes. LUNGS: Diminished Breath Sounds Bilaterally with Wheezing. CARDIOVASCULAR: Regular rate and rhythm. ABDOMEN: Abdominal distention, firm, nontender. Bowel sounds are present and normoactive in all four quadrants. EXTREMITIES: No edema. NEUROLOGIC: No focal neurological deficits. SKIN: Warm, dry. laboratory and microbiology Laboratory Tests 12/18/24 06:01 Test 12/18/24 06:01 Range/Units Serum Glucose 95 74-106 mg/dL Problem List Acute hypoxic respiratory failure, likely due to CHF exacerbation. Acute on chronic systolic heart failure. Acute pulmonary edema. Dilated cardiomyopathy, methamphetamine induced, EF 20%. Right-sided pleural effusion. Atrial fibrillation with RVR. Secondary hypercoagulability. ROBERTO. Methamphetamine use disorder. Hypertension. Dyslipidemia. Moderate tricuspid valve regurgitation. Assessment/Plan Continued all current supportive medical care. Aldactone. Diuretics with Lasix. DVT and GI prophylactics. Additional plan as per the hospital course. Plan discussed with: Patient MARTIN BLANCA MD Dec 18, 2024 12:56
[2024-12-19 05:00] VITALS: BP 102/67; PULSE 53; RESP 16; TEMP 98; O2SAT 95
[2024-12-19 08:00] VITALS: PULSE 115
[2024-12-19 08:26] LABS: Hematocrit 38.9 % (41.0-53.0); Hemoglobin 12.3 g/dL (13.5-17.5); Mean Corpuscular Hemoglobin 25.5 pg (28.0-32.0); Mean Corpuscular Volume 80.7 fL (80.0-100.0); Nucleated Red Blood Cells % 0.0 %
[2024-12-19 08:49] LABS: Alanine Aminotransferase 18 U/L (7-40); Albumin 3.9 g/dL (3.2-4.8); Anion Gap 6 (5-15); BUN/Creatinine Ratio 20.8 (10.0-20.0); Carbon Dioxide 26 mmol/L (20-31); Chloride 105 mmol/L (98-107); Magnesium 1.9 mg/dL (1.6-2.6); Potassium 4.9 mmol/L (3.5-5.1); Sodium 137 mmol/L (136-145); Total Protein 6.1 g/dL (5.7-8.2)
[2024-12-19 08:56] VITALS: BP 114/99; PULSE 96; RESP 18; TEMP 98.3; O2SAT 93
[2024-12-19 08:56] LABS: Alkaline Phosphatase 264 U/L (46-116); Bilirubin, Total 1.9 mg/dL (0.2-1.0); Blood Urea Nitrogen 31 mg/dL (9-23); Calcium 8.6 mg/dL (8.7-10.4); Glucose 108 mg/dL (74-106)
[2024-12-19] MEDS ORDERED: SACU1TAB PO (11:17)
[2024-12-19] MEDS ORDERED: CARV3.1240 PO (11:20)
[2024-12-19] MEDS ORDERED: EMPA1TAB PO (11:20)
[2024-12-19] MEDS ORDERED: ASPI81CH49 PO (11:20)
[2024-12-19] MEDS ORDERED: POTA-228 PO (11:20)
[2024-12-19] MEDS ORDERED: FURO1TAB33 PO (11:20)
[2024-12-19] MEDS ORDERED: SPIR25TA8 PO (11:20)
[2024-12-19] MEDS ORDERED: APIX5TAB PO (11:20)
[2024-12-19] MEDS ORDERED: ATOR40TA52 PO (11:20)
[2024-12-19 12:51] VITALS: BP 114/99; TEMP 36.8
[2024-12-19] MEDS ORDERED: TAMS-35 PO (14:43)
--- NOTE | 2024-12-19 15:24 | DVH ---
CHEST RADIOGRAPH Indication: COUGH AND SOB Technique: Single frontal view of the chest was obtained COMPARISON: XY CHEST PORTABLE on DOS: 12/16/24, XY CHEST XRAY 1 VIEW on DOS: 12/15/24, XY CHEST PORTABL E on DOS: 10/14/24, XY CHEST PORTABLE on DOS: 10/05/24, XY CHEST PORTABLE on DOS: 10/03/24 FINDINGS: Lines and Tubes: None Lungs: Mildly progressive right basilar pulmonary airspace disease and small right pleural effusion. There is mild right hemidiaphragmatic elevation. The left lung is clear. No pneumothorax. Cardiomediastinal contours: Cardiomegaly. Bones: Unremarkable IMPRESSION: 1. Mildly progressive right basilar pulmonary airspace disease and small right pleural effusion. 2. Cardiomegaly.
--- NOTE | 2024-12-19 18:36 | DVHDSRES ---
Discharge Summary Date of Admission Resident Creating Document: JULES DONALD RESIDENT Dec 16, 2024 at 01:42 Date of Discharge: Dec 19, 2024 Labs/Diagnostic Data: Laboratory Results Test 12/19/24 07:51 12/18/24 06:01 12/17/24 01:20 12/16/24 11:06 White Blood Count 9.0 10^3/uL (4.4-10.8) Red Blood Count 4.83 10^6/uL (4.5-5.90) Hemoglobin 12.3 g/dL (13.5-17.5) Hematocrit 38.9 % (41.0-53.0) Mean Corpuscular Volume 80.7 fL (80.0-100.0) Mean Corpuscular Hemoglobin 25.5 pg (28.0-32.0) Mean Corpuscular Hemoglobin Concent 31.7 g/dL (32.0-36.0) Red Cell Distribution Width 21.8 % (11.8-14.3) Platelet Count 338 10^3/uL (140-450) Mean Platelet Volume 8.2 fL (6.9-10.8) Neutrophils (%) (Auto) 70.2 % (37.0-80.0) Lymphocytes (%) (Auto) 10.4 % (10.0-50.0) Monocytes (%) (Auto) 16.3 % (0.0-12.0) Eosinophils (%) (Auto) 2.0 % (0.0-7.0) Basophils (%) (Auto) 1.1 % (0.0-2.0) Neutrophils # (Auto) 6.3 10 ^3/uL (1.6-8.6) Lymphocytes # (Auto) 0.9 10 ^3/uL (0.4-5.4) Monocytes # (Auto) 1.5 10 ^3/uL (0-1.3) Eosinophils # (Auto) 0.2 10 ^3/uL (0-0.8) Basophils # (Auto) 0.1 10 ^3/uL (0-0.2) Nucleated Red Blood Cells 0.0 % Sodium Level 137 mmol/L (136-145) Potassium Level 4.9 mmol/L (3.5-5.1) Chloride Level 105 mmol/L (98-107) Carbon Dioxide Level 26 mmol/L (20-31) Anion Gap 6 (5-15) Blood Urea Nitrogen 31 mg/dL (9-23) Creatinine 1.49 mg/dL (0.700-1.30) Glomerular Filtration Rate Calc 54 mL/min (>90) BUN/Creatinine Ratio 20.8 (10.0-20.0) Serum Glucose 108 mg/dL (74-106) Calcium Level 8.6 mg/dL (8.7-10.4) Magnesium Level 1.9 mg/dL (1.6-2.6) Total Bilirubin 1.9 mg/dL (0.2-1.0) Aspartate Amino Transferase (AST) 28 U/L (13-40) Alanine Aminotransferase (ALT) 18 U/L (7-40) Alkaline Phosphatase 264 U/L (46-116) Total Protein 6.1 g/dL (5.7-8.2) Albumin 3.9 g/dL (3.2-4.8) Differential Total Cells Counted 100.0 (100) Neutrophils % (Manual) 63 (37.0-80.0) Band Neutrophils % (Manual) 0 Lymphocytes % (Manual) 12 (10.0-50.0) Monocytes % (Manual) 22 (0-12) Eosinophils % (Manual) 3 (0-7) Basophils % (Manual) 0 (0.0-2.0) Metamyelocytes % (manual) 0 Myelocytes % (Manual) 0 Promyelocytes % (Manual) 0 Blast Cells % (Manual) 0 Reactive Lymphocytes 0 Platelet Estimate Adequate Large Platelets Few Anisocytosis (manual) Slight Ovalocytes Few Stomatocytes Few [place] Cells Few Influenza Type A Antigen Negative (Negative) Influenza Type B Antigen Negative (Negative) SARS-CoV-2 Antigen (Rapid) Negative (NEGATIVE) Urine Color Yellow (Yellow) Urine Clarity Clear (Clear) Urine pH 5.0 (5.0-9.0) Urine Specific [place] 1.017 (1.001-1.035) Urine Protein Trace (Negative) Urine Ketones Negative (Negative) Urine Blood Negative /uL (Negative) Urine Nitrite Negative (Negative) Urine Bilirubin Negative (Negative) Urine Urobilinogen 2 mg/dL (Negative) Urine Leukocyte Esterase Negative /uL (Negative) Urine RBC 1 /hpf (0 - 3) Urine Microscopic WBC 1 /HPF (0-3) Urine Squamous Epithelial Cells None seen /hpf (<5) Urine Bacteria None seen /hpf (None Seen) Urine Hyaline Casts Few /lpf (0 - 2) Urine Mucus Few (None Seen) Urine Glucose Normal mg/dL (Normal) Urine Opiates Screen Neg (NEGATIVE) Urine Fentanyl Screen Neg (NEGATIVE) Urine Barbiturates Screen Neg (NEGATIVE) Urine Phencyclidine Screen Neg (NEGATIVE) Urine Amphetamines Screen Neg (NEGATIVE) Urine Benzodiazepines Screen Neg (NEGATIVE) Urine Cocaine Screen Neg (NEGATIVE) Urine Cannabinoids Screen Neg (NEGATIVE) Test 12/16/24 10:40 12/16/24 02:27 12/16/24 02:24 12/15/24 23:31 Body Fluid Source Pleural fluid Body Fluid pH 8.0 Body Fluid WBC (Manual) 233 CUMM (0-200) Body Fluid RBC (Manual) 158 CUMM (0-2000) Body Fluid Mononuclear Cells 90 % Body Fluid Polymorphonuclear Cells 10 % (0-25) Body Fluid Glucose 117 mg/dL (.) Body Fluid Total Protein 1.5 g/dL (.) Body Fluid Lactate Dehydrogenase 79 IU/L (.) Troponin I High Sensitivity 28 ng/L (</=54) Triglycerides Level 81 mg/dL (< 150) Cholesterol Level 128 mg/dL (< 200) LDL Cholesterol 103 mg/dL (< 100) HDL Cholesterol 23 mg/dL (40-59) B-Type Natriuretic Peptide 3515.39 pg/mL (0-100) Other Laboratory Tests 12/19/24 07:51 Brief Hx & Hospital Course: HISTORY OF PRESENT ILLNESS: This is a 59-year-old male with past medical history of heart failure (HFrEF, methamphetamine induced, EF 20%), permanent AFib (on Eliquis), BPH, recurrent right-sided pleural effusion/thoracentesis, hypertension and dyslipidemia came to the hospital due to shortness of breath since 1 week. Patient was recently discharged from hospital (had admitted due to CHF exacerbation), per patient he could not get his medicine including urine pills, since discharge he has shortness of breaths which progressively worsened and prompted this visit. Per patient, he has shortness of bed at baseline (Functional Class III) but recently has worsened. He also reports orthopnea, PND, generalized weakness. He denies fever, chest pain, cough, nausea, vomiting, or any recent sick contact. Of note, during last admission the patient underwent thoracentesis (took out 1.5 L of fluid), fluid analysis could not meet light criteria. Previous hospitalization: Had admitted on 09/02/2024, due to CHF exacerbation PMHx: heart failure (HFrEF, methamphetamine induced, EF 20%), permanent AFib (on Eliquis), BPH, recurrent right-sided pleural effusion/thoracentesis, hypertension and dyslipidemia PSHx: Not significant Family history: Noncontributory Social history: Ex methamphetamine user, ex marijuana user, received ex-smoker, denies any current drug use. Home medication: Eliquis 5 mg b.i.d., digoxin 0.125 mg, has been, atorvastatin, Jardiance, Lasix 40 mg daily, Entresto, Aldactone, and carvedilol, but the patient does not take any medicine the med. Allergic history: Amiodarone, metoprolol and penicillin HOSPITAL COURSE: Patient was admitted at the line of acute hypoxic respiratory failure due to acute on chronic systolic heart failure due to medication and adherence. Patient was started on IV diuretic of Lasix 80 mg daily and resumed spironolactone, Entresto, carvedilol, and Jardiance. EKG performed, showed atrial fibrillation with rapid ventricular response with no significant ST or T- wave changes. Serial trop I is within normal limits with BNP was raised at the 3500s. Echocardiogram performed and showed LVEF 15%. Cardiology consulted, recommended medical management. Due to severe shortness of breaths and right- sided pleural effusion, Radiology was consulted and performed thoracentesis and drained 3 L of fluid. Pleural fluid analysis and culture was performed, which showed no significant finding. On 12/20/2023, the patient was feeling better since admission. Shortness of breath was improved and the patient was able to maintain oxygen saturation on room air. Discharge plan discussed with the patient the patient discharged home. FINAL DIAGNOSIS: Acute hypoxic respiratory failure, likely due to CHF exacerbation Acute on chronic systolic heart failure Acute pulmonary edema, due to systolic heart failure Dilated cardiomyopathy, methamphetamine induced, EF 20% Right-sided pleural effusion, likely due to heart failure Atrial fibrillation with RVR Secondary hypercoagulability ROBERTO, likely VMN Methamphetamine use disorder Hypertension Dyslipidemia Possible pulmonary hypertension Moderate tricuspid valve regurgitation Condition at Discharge: Good Final Diagnosis/Problems List Acute on chronic systolic heart failure Discharge Disposition: Home Discharge Instruct/Medications Diet: Cardiac 2g Na,low cholest Activity: No Restrictions, As Tolerated Follow Up/Referral: Follow up with the PCP within 1 week of the discharge. Follow up with Cardiology on outpatient basis Medications: Jardiance 10 mg daily Entresto twice daily Spironolactone 25 mg daily Carvedilol 3.125 Lasix 20 mg daily KCl 10 mEq daily Atorvastatin 40 mg daily Aspirin 81 mg daily Eliquis 5 mg twice daily Scheduled Acetaminophen (Acetaminophen), 500 MG PO QIDP Apixaban Base (Eliquis), 1 TAB PO BID, (Reported) Apixaban Base (Eliquis), 5 MG PO BID Aspirin (Aspirin Low Dose), 81 MG PO DAILY Aspirin (Aspirin), 81 MG PO DAILY Atorvastatin Calcium (Atorvastatin Calcium), 10 MG PO HS Atorvastatin Calcium (Atorvastatin Calcium), 40 MG PO DAILY Carvedilol (Coreg), 3.125 MG PO Q12HR Carvedilol (Carvedilol), 3.125 MG PO BID Digoxin (Digoxin), 125 MCG PO DAILY Empagliflozin (Jardiance), 10 MG PO DAILY Empagliflozin (Jardiance), 10 MG PO DAILY Furosemide (Furosemide), 1 TAB PO DAILY, (Reported) Furosemide (Lasix), 20 MG PO DAILY Levofloxacin Hemihydrate (Levaquin 500 Mg), 1 TAB PO DAILY Metronidazole (Metronidazole), 500 MG PO TID Potassium Chloride (Potassium Chloride ER), 1 TAB PO BID, (Reported) Potassium Chloride (Potassium Chloride ER), 10 MEQ PO DAILY Sacubitril-Valsartan (Entresto 24-26 mg), 1 TAB PO BID Sacubitril-Valsartan (Entresto 24-26 mg), 1 TAB PO BID Spironolactone (Aldactone), 12.5 MG PO DAILY Spironolactone (Spironolactone), 25 MG PO DAILY Tamsulosin Hcl (Tamsulosin Hcl), 1 CAP PO DAILY, (Reported) Tamsulosin Hcl (Flomax), 0.4 CAP PO DAILY Scheduled PRN Hydrocodone-Acetaminophen (Hydrocodone Bitartrate/AC 5-325 mg), 1 TAB PO QID PRN Discharge Statement: "Patient was advised to return to the ER or call 911 if any headaches, dizziness, shortness of breath, chest pain, abdominal pain, bleeding, fevers, or worsening of medical condition. Patient was counseled about treatment plan, medications, possible side effects, patientverbalized understanding. All questions were answered to the best of my ability. This discharge took greater then 30 minutes in planning, reviewing documentation, counseling the patient, and discussing with other team members." ASSESSMENT ASSESSMENT Assessment Acute on chronic systolic heart failure Date of Service: Dec 19, 2024 Billing Provider: JONELLE PEREZ MD Common Visit Codes: 69916-SSV/OBS DISCH DAY >30min RAJANI CLAROS RESDIENT Dec 19, 2024 18:36 JONELLE PEREZ MD Dec 19, 2024 23:42
--- NOTE | 2024-12-19 20:29 | DVHPN2 ---
Progress Note - Dictate Date Seen: Dec 19, 2024 Medical Necessity Reason Pt with a Central, PICC or Fol: No Subjective Patient was seen and evaluated in follow up. Patient reports feeling better today. BUN 31, HELPER COORDINATOR 1.49, CA 8.6. Patient is cardiac stable for discharge. Telemetry reviewed. vital signs Vital Sign Date Time Temp Pulse Resp B/P (MAP) Pulse Ox O2 Delivery O2 Flow Rate FiO2 12/19/24 12:51 36.8 12/19/24 09:30 114/99 12/19/24 08:56 96 18 93 12/19/24 08:29 Room Air* 0 21 Total Intake and Output 12/18/24 12/18/24 12/19/24 15:00 23:00 07:00 Intake Total 1120 ml 120 ml Output Total 2670 ml 900 ml Balance -1550 ml -780 ml medications Current Medications Medications Dose Ordered Sig/Zainab Route Start Time Stop Time Status Last Admin Dose Admin Pantoprazole Sodium 40 mg DAILY PO 12/16/24 10:00 12/19/24 09:31 40 MG Spironolactone 25 mg DAILY PO 12/16/24 02:15 12/19/24 09:30 25 MG Spironolactone 25 mg DAILY PO 12/16/24 10:00 Cancel Empaglifozin 10 mg DAILY PO 12/16/24 10:00 12/19/24 09:30 10 MG Atorvastatin Calcium 40 mg HS PO 12/17/24 22:00 12/18/24 21:31 40 MG Furosemide 80 mg DAILY IV 12/16/24 13:00 12/19/24 09:30 80 MG Enoxaparin Sodium 90 mg Q12HR SC 12/16/24 22:00 12/19/24 09:30 90 MG objective GENERAL: Alert and oriented x 3. No acute distress. EYES: PERRL, EOMI. Anicteric. HENT: Moist mucous membranes. LUNGS: Diminished Breath Sounds Bilaterally with Wheezing. CARDIOVASCULAR: Regular rate and rhythm. ABDOMEN: Abdominal distention, firm, nontender. Bowel sounds are present and normoactive in all four quadrants. EXTREMITIES: No edema. NEUROLOGIC: No focal neurological deficits. SKIN: Warm, dry. laboratory and microbiology Laboratory Tests 12/19/24 07:51 Test 12/19/24 07:51 Range/Units Serum Glucose 108 H 74-106 mg/dL Problem List Acute hypoxic respiratory failure, likely due to CHF exacerbation. Acute on chronic systolic heart failure. Acute pulmonary edema. Dilated cardiomyopathy, methamphetamine induced, EF 20%. Right-sided pleural effusion. Atrial fibrillation with RVR. Secondary hypercoagulability. ROBERTO. Methamphetamine use disorder. Hypertension. Dyslipidemia. Moderate tricuspid valve regurgitation. Assessment/Plan Continued all current supportive medical care. Aldactone. Diuretics with Lasix. DVT and GI prophylactics. Additional plan as per the hospital course. Plan discussed with: Patient MARTIN BLANCA MD Dec 19, 2024 13:24
== END 2024-12-19 16:20 | disposition home or self-care (01) | DRG 133 ==
LOC: EDBD 22:25 → ER 22:25 → OVERFLOW 12-16 01:42 → EAST 12-16 13:21 → TELE-EAST 12-16 20:52
PROVIDERS: ADMIT Student in an Organized Health Care Education/Training Program; ATTEND Emergency Medicine
PROC: 0W993ZX Drainage of Right Pleural Cavity, Percutaneous Approach, Diagnostic (ICD-10-PCS; principal; 2024-12-16)
DX: J96.01 Acute respiratory failure with hypoxia (principal); N17.0 Acute kidney failure with tubular necrosis; I50.23 Acute on chronic systolic (congestive) heart failure; I27.20 Pulmonary hypertension, unspecified; D68.69 Other thrombophilia; J91.8 Pleural effusion in other conditions classified elsewhere; I42.0 Dilated cardiomyopathy; I11.0 Hypertensive heart disease with heart failure; Z20.822 Contact with and (suspected) exposure to COVID-19; I07.1 Rheumatic tricuspid insufficiency; F15.10 Other stimulant abuse, uncomplicated; E78.5 Hyperlipidemia, unspecified; I48.91 Unspecified atrial fibrillation; F17.210 Nicotine dependence, cigarettes, uncomplicated; Z88.0 Allergy status to penicillin; Z82.49 Family history of ischemic heart disease and other diseases of the circulatory system
CPT/HCPCS: 32555; 36415; 71045; 76604; 76942; 80048; 80053; 80061; 80307; 81001; 83735; 83880; 83986; 84484; 85007; 85025; 85027; 87070; 87205; 87426; 87804; 89051; 93005; 93306; G0378

== ENCOUNTER 2024-12-29 11:22 | Emergency (ER) | payer OTHER ==
[~2024-12-29] VITALS: Ht 177.8 cm; Wt 85.0 kg
[~2024-12-29 11:22] MED LIST changes: +ASPI81CH49 PO; +ATOR40TA52 PO; +CARV3.1240 PO; +FURO1TAB33 PO; +SPIR25TA8 PO; +TAMS-35 PO
[2024-12-29 11:45] VITALS: BP 98/60; PULSE 110; RESP 20; TEMP 98.6; O2SAT 95
== END 2024-12-29 12:19 | disposition left against medical advice (07) ==
LOC: ER 11:22
DX: R06.02 Shortness of breath (principal); Z53.21 Procedure and treatment not carried out due to patient leaving prior to being seen by health care provider

== ENCOUNTER 2025-01-10 03:39 | Inpatient (IN) | payer MEDICAID, OTHER ==
[~2025-01-10] VITALS: Ht 180.3 cm; Wt 81.9 kg
[2025-01-10] VITALS (10 sets, daily range): BP systolic 95–114; BP diastolic 69–85; PULSE 86–150; RESP 18–24; TEMP 96.5–98.7; O2SAT 93–100
--- NOTE | 2025-01-10 03:55 | ED.PDOC ---
HPI Comments 59-year-old male who came to ER for shortness of breath. Patient was discharged your last month, diagnosed with 1. Acute hypoxic respiratory failure, likely due to CHF exacerbation ,2. Acute on chronic systolic heart failure, 3. Acute pulmonary edema, due to systolic heart failure, 4. Dilated cardiomyopathy, methamphetamine induced, EF 20%, 5. Right-sided pleural effusion, likely due to heart failure , 6. Atrial fibrillation with RVR, 7. Secondary hypercoagulability, 8. ROBERTO, likely VMN,9. Methamphetamine use disorder , 10. Hypertension, 11. Dyslipidemia, 12. Possible pulmonary hypertension, 13. Mod erate tricuspid valve regurgitation. Patient states he has been off his Lasix and other meds for the past 2 days, and he has been having progressively worsening shortness a breath, abdominal pain/distention, chest pains, and bipedal edema Chief Complaint: Shortness of Breath Time Seen by MD: 03:53 Primary Care Provider: Dr. Matson Reviewed Notes: Nurses Notes Allergies: Coded Allergies: Amiodarone (Verified Allergy, Unknown, 08/16/23) Metoprolol (Verified Allergy, Unknown, rapid decrease in blood pressure, 02/13/24) Penicillins (Verified Allergy, Unknown, 06/09/23) Home Meds Active Scripts Tamsulosin Hcl (Flomax) 0.4 Mg Cap, 0.4 CAP PO DAILY, #90 CAP 3 Refills Prov:RAJANI CLAROS RESDIENT 12/19/24 Atorvastatin Calcium (ATORVASTATIN CALCIUM) 40 Mg Tab, 40 MG PO DAILY for 30 Days, #30 TAB 3 Refills Prov:RAJANI CLAROS RESDIENT 12/19/24 Apixaban Base (ELIQUIS) 5 Mg Tab, 5 MG PO BID for 30 Days, #60 TAB 3 Refills Prov:RAJANI CLAROS RESDIENT 12/19/24 Aspirin (Aspirin) 81 Mg Chw, 81 MG PO DAILY for 30 Days, #30 TAB.CHEW 3 Refills Prov:RAJANI CLAROS RESDIENT 12/19/24 Potassium Chloride (Potassium Chloride ER) 10 Meq Tab, 10 MEQ PO DAILY for 30 Days, #30 TAB 3 Refills Prov:RAJANI CLAROS RESDIENT 12/19/24 Furosemide (Lasix) 20 Mg Tb, 20 MG PO DAILY for 30 Days, #30 TAB 3 Refills Prov:RAJANI CLAROS RESDIENT 12/19/24 Carvedilol (Carvedilol) 3.125 Mg Tab, 3.125 MG PO BID for 30 Days, #60 TAB 3 Refills Prov:RAJANI CLAROS RESDIENT 12/19/24 Empagliflozin (Jardiance) 10 Mg Tab, 10 MG PO DAILY for 30 Days, #30 TAB 3 Refills Prov:RAJANI CLAROS RESDIENT 12/19/24 Spironolactone (Spironolactone) 25 Mg Tab, 25 MG PO DAILY for 30 Days, #30 TAB 3 Refills Prov:RAJANI CLAROS RESDIENT 12/19/24 Sacubitril-Valsartan (Entresto 24-26 mg) 1 Tab Tab, 1 TAB PO BID for 30 Days, #60 TAB 3 Refills Prov:NISHANTMICHAELNISHANT LEWISSerge RESDIENT 12/19/24 Hydrocodone-Acetaminophen (Hydrocodone Bitartrate/AC 5-325 mg) 1 Tab Tab, 1 TAB PO QID PRN, #20 TAB Prov:TAMMI LYNN MD 10/17/24 Metronidazole (Metronidazole) 500 Mg Tab, 500 MG PO TID, #20 TAB Prov:TAMMI LYNN MD 10/17/24 Levofloxacin Hemihydrate (LEVAQUIN 500 MG) 500 Mg Tab, 1 TAB PO DAILY, #7 TAB Prov:TAMMI LYNN MD 10/17/24 Digoxin (Digoxin) 125 Mcg Tab, 125 MCG PO DAILY for 20 Days, #20 TAB Prov:RAJANI CLAROS RESDIENT 09/06/24 Acetaminophen (Acetaminophen) 500 Mg Tab, 500 MG PO QIDP, #30 TAB 0 Refills Prov:DONNELL BRITO 04/15/24 Carvedilol (COREG) 3.125 Mg Tab, 3.125 MG PO Q12HR for 30 Days, #60 TAB Prov:ANTIONE LUA 02/15/24 Spironolactone (Aldactone) 25 Mg Tab, 12.5 MG PO DAILY for 30 Days, #15 TAB 6 Refills Prov:JAH AYALA DO 4/14/24 Sacubitril-Valsartan (Entresto 24-26 mg) 1 Tab Tab, 1 TAB PO BID for 30 Days, #60 TAB 6 Refills Prov:JAH AYALA DO 08/19/23 Empagliflozin (Jardiance) 10 Mg Tab, 10 MG PO DAILY for 30 Days, #30 TAB 6 Refills Prov:JAH AYALA DO 08/19/23 Atorvastatin Calcium (ATORVASTATIN CALCIUM) 20 Mg Tab, 10 MG PO HS for 30 Days, #15 TAB 6 Refills Prov:JAH AYALA DO 08/19/23 Aspirin (Aspirin Low Dose) 81 Mg Tab, 81 MG PO DAILY for 30 Days, #30 TAB 6 Refills Prov:JAH AYALA DO 08/19/23 Reported Medications Potassium Chloride (Potassium Chloride ER) 10 Meq Tab, 1 TAB PO BID for 5 Days, #10 10/06/24 Tamsulosin Hcl (Tamsulosin Hcl) 0.4 Mg Cap, 1 CAP PO DAILY for 30 Days, #30 10/06/24 Apixaban Base (ELIQUIS) 5 Mg Tab, 1 TAB PO BID for 90 Days, #180 10/06/24 Furosemide (Furosemide) 40 Mg Tab, 1 TAB PO DAILY for 90 Days, #90 10/06/24 Mode of Arrival: Ambulatory Past Medical History PAST MEDICAL HISTORY: AFIB, CHF, High Lipids, HTN Surgical History: Hernia Repair Family History Family History: Reviewed,noncontributory to illness Social History Smoker: Cigarettes, Less Than 1 Pack/Day Alcohol: Occasionally Drugs: Methamphetamine Lives In: Home Constitutional: reports: weakness; denies: chills, diaphoresis, fatigue, fever, malaise, sweats, others EENTM: denies: blurred vision, double vision, ear bleeding, ear discharge, ear drainage, ear pain, ear ringing, eye pain, eye redness, hearing loss, mouth pain, mouth swelling, nasal discharge, nose bleeding, nose congestion, nose pain, photophobia, tearing, throat pain, throat swelling, voice changes, others Respiratory: reports: SOB at rest, shortness of breath, SOB with excertion; denies: cough, hemoptysis, orthopnea, stridor, wheezing, others Cardiovascular: reports: chest pain, dizzy spells, edema; denies: diaphoresis, Dyspnea on exertion, irregular heart beat, left arm pain, lightheadedness, palpitations, PND, syncope, others Gastrointestinal: denies: abdomen distended, abdominal pain, blood streaked bowels, constipated, diarrhea, dysphagia, difficulty swallowing, hematemesis, melena, nausea, poor appetite, poor fluid intake, rectal bleeding, rectal pain, vomiting, others Genitourinary: denies: burning, dysuria, flank pain, frequency, hematuria, incontinence, penile discharge, penile sore, pain, testicle pain, testicle swelling, urgency, others Neurological: denies: dizziness, fainting, headache, left sided numbness, left sided weakness, numbness, paresthesia, pre-existing deficit, right sided numbness, right sided weakness, seizure, speech problems, tingling, tremors, weakness, others Musculoskeletal: denies: back pain, gout, joint pain, joint swelling, muscle pain, muscle stiffness, neck pain, others Integumetry: denies: bruises, change in color, change in hair/nails, dryness, laceration, lesions, lumps, rash, wounds, others Allergic/Immunocompromised: denies: Difficulty Healing, Frequent Infections, Hives, Itching, others Hematologic/Lymphatic: denies: anemia, blood clots, easy bleeding, easy bruising, swollen glands, others Endocrine: denies: excessive hunger, excessive sweating, excessive thirst, excessive urination, flushing, intolerance to cold, intolerance to heat, unexplained weight gain, unexplained weight loss, others Psychiatric: denies: anxiety, bipolar disorder, depression, hopeless, panic disorder, schizophrenia, sleepless, suicidal, others Physical Exam General Appearance: No Apparent Distress, Normal HEENT: Normal ENT Inspection, Pharynx Normal, TMs Normal Neck: Full Range of Motion, Non-Tender, Normal, Normal Inspection Respiratory: Chest Non-Tender, Lungs Clear, No Accessory Muscle Use, No Respiratory Distress, Normal Breath Sounds Cardiovascular: No Edema, No JVD, No Murmur, No Gallop, Normal Peripheral Pulses, Regular Rate/Rhythm Breast Exam: Deferred Gastrointestinal: No Organomegaly, Non Tender, No Pulsatile Mass, Normal Bowel Sounds, Soft Genitalia: Deferred Pelvic: Deferred Rectal: Deferred Extremities: No calf tenderness, Normal capillary refill, Normal inspection, Normal range of motion, Non-tender, No pedal edema Musculoskeletal : Apperance: Normal Neurologic: Alert, 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 Was a procedure done?: No CP Differential Dx Differential Diagnosis: Angina, Anxiety / Panic Attack Differential Diagnosis: CHF, HTN Essential Differential Diagnosis: Angina, Chest Wall Pain, Costochondritis, Esophageal reflux/spasm, Gastritis, Myocardial Infarction X-Ray, Labs, Meds, VS Vital Signs Date Time Temp Pulse Resp B/P (MAP) Pulse Ox O2 Delivery O2 Flow Rate FiO2 01/10/25 04:56 98.1 150 22 115/57 (76) 97 98.1 01/10/25 04:56 150 22 97 Nasal Cannula* 2 28 01/10/25 04:00 113/67 01/10/25 03:40 98.0 142 26 110/89 98 98.0 01/10/25 03:40 140 Lab Test 01/10/25 04:50 01/10/25 03:45 Range/Units Troponin I High Sensitivity 30 Pending White Blood Count 8.6 4.4-10.8 10^3/uL Red Blood Count 4.96 4.5-5.90 10^6/uL Hemoglobin 12.4 L 13.5-17.5 g/dL Hematocrit 39.0 L 41.0-53.0 % Mean Corpuscular Volume 78.6 L 80.0-100.0 fL Mean Corpuscular Hemoglobin 24.9 L 28.0-32.0 pg Mean Corpuscular Hemoglobin Concent 31.7 L 32.0-36.0 g/dL Red Cell Distribution Width 21.4 H 11.8-14.3 % Platelet Count 422 140-450 10^3/uL Mean Platelet Volume 7.9 6.9-10.8 fL Neutrophils (%) (Auto) 74.8 37.0-80.0 % Lymphocytes (%) (Auto) 10.0 10.0-50.0 % Monocytes (%) (Auto) 12.7 H 0.0-12.0 % Eosinophils (%) (Auto) 1.6 0.0-7.0 % Basophils (%) (Auto) 0.9 0.0-2.0 % Neutrophils # (Auto) 6.5 1.6-8.6 10 ^3/uL Lymphocytes # (Auto) 0.9 0.4-5.4 10 ^3/uL Monocytes # (Auto) 1.1 0-1.3 10 ^3/uL Eosinophils # (Auto) 0.1 0-0.8 10 ^3/uL Basophils # (Auto) 0.1 0-0.2 10 ^3/uL Nucleated Red Blood Cells 0.3 % Prothrombin Time 13.8 H 9.3-11.8 sec Prothrombin Time INR 1.34 H 0.9-1.15 Activated Partial Thromboplast Time 25.1 24.5-34.5 SEC Sodium Level 136 136-145 mmol/L Potassium Level 4.4 3.5-5.1 mmol/L Chloride Level 98 98-107 mmol/L Carbon Dioxide Level 27 20-31 mmol/L Anion Gap 11 5-15 Blood Urea Nitrogen 31 H 9-23 mg/dL Creatinine 1.30 0.700-1.30 mg/dL Glomerular Filtration Rate Calc 64 >90 mL/min BUN/Creatinine Ratio 23.8 H 10.0-20.0 Serum Glucose 139 H 74-106 mg/dL Calcium Level 9.1 8.7-10.4 mg/dL Magnesium Level 2.0 1.6-2.6 mg/dL Total Bilirubin 2.3 H 0.2-1.0 mg/dL Aspartate Amino Transferase (AST) 23 13-40 U/L Alanine Aminotransferase (ALT) 14 7-40 U/L Alkaline Phosphatase 293 H 46-116 U/L B-Type Natriuretic Peptide 2545.07 0-100 pg/mL Total Protein 6.7 5.7-8.2 g/dL Albumin 4.1 3.2-4.8 g/dL Current Medications Medications (Trade) Dose Ordered Sig/Zainab Route Start Time Stop Time Status Last Admin Aspirin 162 mg ONCE ONCE PO 01/10/25 04:00 01/10/25 04:01 DC 01/10/25 04:00 Furosemide (Lasix Injection) 40 mg ONCE ONCE IV 01/10/25 04:00 01/10/25 04:01 DC 01/10/25 04:00 Time of 1ST Reevaluation: 03:54 Reevaluation 1ST: Unchanged Patient Education/Counseling: Diagnosis, Treatment Family Education/Counseling: No Family Present SEPSIS Sepsis Screen Date sepsis recognized/suspect: Jan 10, 2025 Time Sepsis recognized/suspect: 033 Recent Procedure: No On Antibiotic Therapy: No Respiratory Rate >20: Yes Heart Rate >90: Yes Temp<36 C (96.8 F) or >38.3 C: No SBP <90 or MAP <65 mmHG: No New Acute Mental Status Change: No Is the patient on CPAP, BIPAP,: No Physician Orders Electrocardigram (01/10/25 03:42) Chest Portable (01/10/25 03:46) Urinalysis (01/10/25 03:46) Troponin-I Hs (01/10/25 04:46) Troponin-I Hs (01/10/25 06:46) Drug Screen (01/10/25 03:46) Vital Signs Date Time Temp Pulse Resp B/P (MAP) Pulse Ox O2 Delivery O2 Flow Rate FiO2 01/10/25 04:56 98.1 150 22 115/57 (76) 97 98.1 01/10/25 04:56 150 22 97 Nasal Cannula* 2 28 01/10/25 04:00 113/67 01/10/25 03:40 98.0 142 26 110/89 98 98.0 01/10/25 03:40 140 Laboratory Tests Test 01/10/25 03:45 White Blood Count 8.6 10^3/uL (4.4-10.8) Medications Medications Dose Ordered Sig/Zainab Route Start Time Stop Time Status Last Admin Dose Admin Aspirin 162 mg ONCE ONCE PO 01/10/25 04:00 01/10/25 04:01 DC 01/10/25 04:00 Furosemide 40 mg ONCE ONCE IV 01/10/25 04:00 01/10/25 04:01 DC 01/10/25 04:00 Departure 1 Departure Time of Disposition: 05:25 Impression: Primary Impression: Acute exacerbation of congestive heart failure Disposition: ADMITTED INPATIENT Admit to: Tele Condition: Guarded Discharged With: Self Comments 59-year-old male with a history of congestive heart failure now with acute CHF exacerbation. He had a right pleural effusion and signs of CHF on his chest x- ray. His BNP is high. Patient was given aspirin and Lasix. Patient will need admission for supportive care and further workup. Critical Care Note Critical Care Time?: No Stability Stability form required: No Heart Score Heart Score: Heart Score Response (Comments) Value History Moderate Suspicious 1 EKG Repolarization Disturb 1 Age 45-64 1 Risk Factors >3 or Hx ASHD 2 Troponin >3 x's Normal limit 2 Total 7 I personally scribed for MICHAEL RAY MD ([email or web address]) on 01/10/25 at 03:54. Electronically submitted by Richi Butt ([email or web address]). MICHAEL RAY MD Jan 10, 2025 03:54
[2025-01-10] MEDS: FUROSEMIDE 40 MG/4 ML VIAL IV ONE (04:00)
[2025-01-10 04:43] LABS: Hematocrit 39.0 % (41.0-53.0); Hemoglobin 12.4 g/dL (13.5-17.5); Mean Corpuscular Hemoglobin 24.9 pg (28.0-32.0); Mean Corpuscular Volume 78.6 fL (80.0-100.0); Nucleated Red Blood Cells % 0.3 %
[2025-01-10 04:51] LABS: Alanine Aminotransferase 14 U/L (7-40); Albumin 4.1 g/dL (3.2-4.8); Anion Gap 11 (5-15); BUN/Creatinine Ratio 23.8 (10.0-20.0); Calcium 9.1 mg/dL (8.7-10.4); Carbon Dioxide 27 mmol/L (20-31); Magnesium 2.0 mg/dL (1.6-2.6); Potassium 4.4 mmol/L (3.5-5.1); Total Protein 6.7 g/dL (5.7-8.2)
[2025-01-10 04:54] LABS: INR 1.34 (0.9-1.15); Partial Thromboplastin Time 25.1 SEC (24.5-34.5); Prothrombin Time 13.8 sec (9.3-11.8)
[2025-01-10 05:04] LABS: Alkaline Phosphatase 293 U/L (46-116); Bilirubin, Total 2.3 mg/dL (0.2-1.0); Blood Urea Nitrogen 31 mg/dL (9-23); Chloride 98 mmol/L (98-107); Glucose 139 mg/dL (74-106); Sodium 136 mmol/L (136-145)
--- NOTE | 2025-01-10 05:07 | DVH ---
CHEST RADIOGRAPH Indication: SOB Technique: Single frontal view of the chest was obtained COMPARISON: XY CHEST PORTABLE on DOS: 12/19/24, XY CHEST PORTABLE on DOS: 12/16/24, XY CHEST XRAY 1 VIE W on DOS: 12/15/24, XY CHEST PORTABLE on DOS: 10/14/24, XY CHEST PORTABLE on DOS: 10/05/24 FINDINGS: Lines and Tubes: None Lungs: Congestion Pleura: Moderate right pleural effusion No pneumothorax. Cardiomediastinal contours: Cardiomegaly Bones: Unremarkable IMPRESSION: Congestion and moderate right pleural effusion
--- NOTE | 2025-01-10 06:42 | ECG ---
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
[2025-01-10 08:20] LABS: Urine Protein, UAD Negative (Negative)
[2025-01-10 08:35] LABS: Amphetamine Screen, Urine Pos (NEGATIVE); Barbiturate Scree,Urine Neg (NEGATIVE); Benzodiazephine Screen, Urine Neg (NEGATIVE); Cannabinoid Screen, Urine Neg (NEGATIVE); Cocaine Screen, Urine Neg (NEGATIVE); Opiate Scree,Urine Neg (NEGATIVE); Phencyclidine Screen, Urine Neg (NEGATIVE)
[2025-01-10] MEDS ORDERED: AMIODARONE BOLUS KIT 100 ML IV ONE (08:45)
[2025-01-10] MEDS ORDERED: AMIODARONE 360mg/200mL PREMIX 200 ML IV ONE (09:00)
[2025-01-10] MEDS: DIGOXIN 0.125 MG TAB PO ONE (09:04)
[2025-01-10] MEDS ORDERED: MORPHINE SULFATE INJ 2 MG/ml SYRG IV PRN (09:30)
[2025-01-10] MEDS ORDERED: NITROGLYCERIN 0.4 MG SL TAB SL PRN (09:30)
[2025-01-10] MEDS ORDERED: ACETAMINOPHEN 325 MG TAB PO PRN (09:30)
[2025-01-10] MEDS ORDERED: ALBUTEROL SULF 2.5 MG/0.5ML(0.5%) NEB SOLN NEB PRN (09:30)
[2025-01-10] MEDS ORDERED: HYDROcodone-ACET 5/325MG TAB PO PRN (09:30)
--- NOTE | 2025-01-10 09:38 | DVHHP2 ---
History of Present Illness Reason for Visit: CHF exacerbation History of Present Illness This is a 59-year-old male with history of methamphetamine, hypertension, hyperlipidemia, AFib, CHF who presents to ED with complaint of shortness of breaths. The patient was discharged last month at this facility for increased s hortness of breath. The patient is here as he is concerned that his shortness of breath has not improved within the last few days. The patient states he has been off his Lasix and other medications for the past few days. The patient will be admitted under hospitalist care to the step-down unit as he currently is on IV Cardizem drip due to uncontrolled atrial fibrillation. In review of chest x-ray shows moderate right pleural effusion. The patient has history of pleural effusion needing to be drained. The patient denies fever, chills, headache, dizziness, palpitation, chest pain, nausea, vomiting, abdominal pain, diarrhea, constipation and other associated symptoms. The plan has been discussed with the patient and primary RN in which all questions concerns have been addressed Cardiovascular: AFIB, HTN, hyperipidemia Past Surgical History: Hernia Repair Family History: None Smoke: <1 pack per day ALCOHOL: occassional Drugs: Other (Methamphetamine) Lives: Alone Domestic Violence: Neg Review of Systems Respiratory: Shortness of breath Allergies: Coded Allergies: Amiodarone (Verified Allergy, Unknown, 08/16/23) Metoprolol (Verified Allergy, Unknown, rapid decrease in blood pressure, 02/13/24) Penicillins (Verified Allergy, Unknown, 06/09/23) Medications Current Medications Medications Dose Ordered Sig/Zainab Route Start Time Stop Time Status Last Admin Dose Admin Enoxaparin Sodium 40 mg DAILY SC 01/10/25 10:00 UNV Acetaminophen 650 mg Q6HP PRN PO 01/10/25 09:30 UNV Nitroglycerin 0.4 mg Q5MINP PRN SL 01/10/25 09:30 UNV Morphine Sulfate 2 mg Q30M PRN IV 01/10/25 09:30 UNV Furosemide 40 mg DAILY IV 01/10/25 10:00 UNV Albuterol 2.5 mg Q2HPRN PRN NEB 01/10/25 09:30 UNV Apixaban 5 mg BID PO 01/10/25 10:00 UNV Aspirin 81 mg DAILY PO 01/10/25 10:00 UNV Atorvastatin Calcium 10 mg HS PO 01/10/25 22:00 UNV Carvedilol 3.125 mg BID PO 01/10/25 10:00 UNV Digoxin 0.125 mg DAILY PO 01/10/25 10:00 UNV Empaglifozin 10 mg DAILY PO 01/10/25 10:00 UNV Acetaminophen/ Hydrocodone Bitart 1 tab QID PRN PO 01/10/25 09:30 UNV Sacubitril/ Valsartan 1 tab BID PO 01/10/25 10:00 UNV Tamsulosin HCl 0.4 mg DAILY PO 01/10/25 10:00 UNV Patient Own Medication 40 mg DAILY PO 01/10/25 10:00 UNV Exam Vital Signs Vital Signs Date Time Temp Pulse Resp B/P (MAP) Pulse Ox O2 Delivery O2 Flow Rate FiO2 01/10/25 09:04 145 01/10/25 08:55 118/97 01/10/25 04:56 98.1 22 97 98.1 01/10/25 04:56 Nasal Cannula* 2 28 General Appearance: Alert, Oriented X3, Cooperative, mild distress HEENT: Atraumatic, PERRLA, Mucous membr. moist/pink Respiratory: Other (Crackles to bilateral lower lung echevarria) Cardiovascular: Other (Uncontrolled atrial fibrillation) Abdominal: Normal bowel sounds, Soft, No tenderness, No hepatospenomegaly, No masses Extremities: No clubbing, No cyanosis, No edema Skin: No rashes, No breakdown Neuro: Normal speech, Normal tone, Sensation intact Psych/Mental Status: Mental status NL Labs/Xrays Labs Test 01/10/25 07:54 01/10/25 06:50 01/10/25 03:45 Range/Units Urine Color Light-yellow Yellow Urine Clarity Clear Clear Urine pH 5.0 5.0-9.0 Urine Specific [place] 1.009 1.001-1.035 Urine Protein Negative Negative Urine Ketones Negative Negative Urine Blood Negative Negative /uL Urine Nitrite Negative Negative Urine Bilirubin Negative Negative Urine Urobilinogen Normal Negative mg/dL Urine Leukocyte Esterase Negative Negative /uL Urine RBC None seen 0 - 3 /hpf Urine Microscopic WBC < 1 0-3 /HPF Urine Squamous Epithelial Cells None seen <5 /hpf Urine Bacteria None seen None Seen /hpf Urine Hyaline Casts Mod 0 - 2 /lpf Urine Glucose Normal Normal mg/dL Urine Opiates Screen Neg NEGATIVE Urine Fentanyl Screen Neg NEGATIVE Urine Barbiturates Screen Neg NEGATIVE Urine Phencyclidine Screen Neg NEGATIVE Urine Amphetamines Screen Pos NEGATIVE Urine Benzodiazepines Screen Neg NEGATIVE Urine Cocaine Screen Neg NEGATIVE Urine Cannabinoids Screen Neg NEGATIVE Troponin I High Sensitivity 32 </=54 ng/L White Blood Count 8.6 4.4-10.8 10^3/uL Red Blood Count 4.96 4.5-5.90 10^6/uL Hemoglobin 12.4 L 13.5-17.5 g/dL Hematocrit 39.0 L 41.0-53.0 % Mean Corpuscular Volume 78.6 L 80.0-100.0 fL Mean Corpuscular Hemoglobin 24.9 L 28.0-32.0 pg Mean Corpuscular Hemoglobin Concent 31.7 L 32.0-36.0 g/dL Red Cell Distribution Width 21.4 H 11.8-14.3 % Platelet Count 422 140-450 10^3/uL Mean Platelet Volume 7.9 6.9-10.8 fL Neutrophils (%) (Auto) 74.8 37.0-80.0 % Lymphocytes (%) (Auto) 10.0 10.0-50.0 % Monocytes (%) (Auto) 12.7 H 0.0-12.0 % Eosinophils (%) (Auto) 1.6 0.0-7.0 % Basophils (%) (Auto) 0.9 0.0-2.0 % Neutrophils # (Auto) 6.5 1.6-8.6 10 ^3/uL Lymphocytes # (Auto) 0.9 0.4-5.4 10 ^3/uL Monocytes # (Auto) 1.1 0-1.3 10 ^3/uL Eosinophils # (Auto) 0.1 0-0.8 10 ^3/uL Basophils # (Auto) 0.1 0-0.2 10 ^3/uL Nucleated Red Blood Cells 0.3 % Prothrombin Time 13.8 H 9.3-11.8 sec Prothrombin Time INR 1.34 H 0.9-1.15 Activated Partial Thromboplast Time 25.1 24.5-34.5 SEC Sodium Level 136 136-145 mmol/L Potassium Level 4.4 3.5-5.1 mmol/L Chloride Level 98 98-107 mmol/L Carbon Dioxide Level 27 20-31 mmol/L Anion Gap 11 5-15 Blood Urea Nitrogen 31 H 9-23 mg/dL Creatinine 1.30 0.700-1.30 mg/dL Glomerular Filtration Rate Calc 64 >90 mL/min BUN/Creatinine Ratio 23.8 H 10.0-20.0 Serum Glucose 139 H 74-106 mg/dL Calcium Level 9.1 8.7-10.4 mg/dL Magnesium Level 2.0 1.6-2.6 mg/dL Total Bilirubin 2.3 H 0.2-1.0 mg/dL Aspartate Amino Transferase (AST) 23 13-40 U/L Alanine Aminotransferase (ALT) 14 7-40 U/L Alkaline Phosphatase 293 H 46-116 U/L B-Type Natriuretic Peptide 2545.07 0-100 pg/mL Total Protein 6.7 5.7-8.2 g/dL Albumin 4.1 3.2-4.8 g/dL ORDERING PHYSICIAN: MICHAEL RAY MD PROCEDURE(s): CXRP - CHEST PORTABLE REASON: SOB ORDER NUMBER(s): [id number], ACCESSION NUMBER(s): [id number] CHEST RADIOGRAPH Indication: SOB Technique: Single frontal view of the chest was obtained COMPARISON: XY CHEST PORTABLE on DOS: 12/19/24, XY CHEST PORTABLE on DOS: 12/16/24, XY CHEST XRAY 1 VIEW on DOS: 12/15/24, XY CHEST PORTABLE on DOS: 10/14/24, XY CHEST PORTABLE on DOS: 10/05/24 FINDINGS: Lines and Tubes: None Lungs: Congestion Pleura: Moderate right pleural effusion No pneumothorax. Cardiomediastinal contours: Cardiomegaly Bones: Unremarkable IMPRESSION: Congestion and moderate right pleural effusion IS Sepsis Screen Date sepsis recognized/suspect: Jan 10, 2025 Time Sepsis recognized/suspect: 0502 Recent Procedure: No On Antibiotic Therapy: No Respiratory Rate >20: No Heart Rate >90: Yes Temp<36 C (96.8 F) or >38.3 C: No SBP <90 or MAP <65 mmHG: No New Acute Mental Status Change: No Is the patient on CPAP, BIPAP,: No Physician Orders Chest Portable (01/10/25 03:46) Admit (01/10/25 09:17) 2 Gm Sodium Diet (01/10/25 Breakfast) Enoxaparin Sodium (Lovenox) (01/10/25 10:00) Complete Blood Count (01/11/25 04:00) Comprehensive Metabolic Panel (01/11/25 04:00) Echo 2d Mode Cardiac Dop (01/10/25:17) Condition: Fair (01/10/25:17) Acetaminophen Tablet (Tylenol Tablet) (01/10/25 09:30) Bedrest With Bathroom Privileg (01/10/25:17) Nitroglycerin Sublingual (Ntrostat Subli (01/10/25 09:30) Morphine Sulfate Injection (01/10/25 09:30) Stat Ekg For Chest Pain (01/10/25:) Notify Of Changes From Base (01/10/25:) Sign Carpenter For 24 Hours (01/10/25:) Emergency Dysrhythmia Protocol (01/10/25:) Rhythm Strips Once Every Shift (01/10/25:) Oxygen By Nasal Cannula (01/10/25:) * Radiologist Consult (01/10/25 09:19) Prothrombin Time W/ Inr (01/10/25 09:19) Furosemide Injection (Lasix Injection) (01/10/25 10:00) B-Type Natriuretic Peptide (01/11/25 04:00) Albuterol Medneb (Ventolin Medneb) (01/10/25 09:30) Apixaban (Eliquis) (01/10/25 10:00) Aspirin Enteric Coated Tablet (Ecotrin E (01/10/25 10:00) Atorvastatin (Lipitor) (01/10/25 22:00) Digoxin Tablet (Lanoxin Tablet) (01/10/25 10:00) Empagliflozin (Jardiance) (01/10/25 10:00) Hydrocodone-Acet 5/325mg Tab ([place] 5/32 (01/10/25 09:30) Sacubitril-Valsartan (Entresto 24-26 Mg (01/10/25 10:00) Tamsulosin Hydrochloride (Flomax) (01/10/25 10:00) (Nf) Atorvastatin Calcium (01/10/25 10:00) Carvedilol Tablet (Coreg Tablet) (01/10/25 10:00) Vital Signs Date Time Temp Pulse Resp B/P (MAP) Pulse Ox O2 Delivery O2 Flow Rate FiO2 01/10/25 09:04 145 01/10/25 08:55 118/97 01/10/25 04:56 98.1 150 22 115/57 (76) 97 98.1 01/10/25 04:56 150 22 97 Nasal Cannula* 2 28 01/10/25 04:00 113/67 01/10/25 03:40 98.0 142 26 110/89 98 98.0 01/10/25 03:40 140 Laboratory Tests Test 01/10/25 03:45 White Blood Count 8.6 10^3/uL (4.4-10.8) Medications Medications Dose Ordered Sig/Zainab Route Start Time Stop Time Status Last Admin Dose Admin Aspirin 162 mg ONCE ONCE PO 01/10/25 04:00 01/10/25 04:01 DC 01/10/25 04:00 162 MG Digoxin 0.25 mg ONCE ONCE PO 01/10/25 09:00 01/10/25 09:01 DC 01/10/25 09:04 0.25 MG Furosemide 40 mg ONCE ONCE IV 01/10/25 04:00 01/10/25 04:01 DC 01/10/25 04:00 40 MG Reassessment Post Fluid Pulse Location: Radial Pulse Strength: Normal Capillary Refill Exam: < 3 seconds Skin Temperature: Warm Skin Moisture: Moist Skin Tugor: WNL Skin Color: WNL Fingernail Color: WNL Assessment/Plan Assessment/Plan CHF exacerbation---admitted to Er for shortness of breaths Last month visit for same complaint History of methamphetamine use, AFib, hypertension, CHF and hyperlipidemia Chest x-ray shows right-sided pleural effusion Currently on IV diltiazem for rate control Admit to step-down unit for continuous monitoring ACS protocol Reviewed CBC which is normal Reviewed BMP which is normal Cardiac enzyme negative x3 INR 1.34 Reviewed BNP 2545 Tox screen shows positive amphetamine Urinalysis is negative Reviewed chest x-ray which showed moderate right pleural effusion IV Lasix now and daily IV Cardizem drip Digoxin Albuterol q.2h p.r.n. shortness of breath Consult interventional radiologist for possible drainage Echocardiogram pending BNP in a.m. We will consider to consult engine repairer for evaluation and recommendation if needed Hypertension Continue antihypertensive agent Continue to monitor Hyperlipidemia Continue statin Polysubstance abuse Alcohol and methamphetamine use Tox region shows positive amphetamine Consider community resources to assist with use Reconcile home medication DVT prophylaxis PUD prophylaxis Labs in a.m. Discussed plan of care with the patient and primary RN in which all questions concerns have been addressed Plan discussed with: Patient My Orders Orders - ELIANE MOORE [employer]GER Procedure Category Date Status Time Admit ADMIT 01/10/25 Transmitted 09:17 2 Gm Sodium Diet DIET 01/10/25 Transmitted Breakfast Enoxaparin Sodium PHA 01/10/25 Logged (Lovenox) 10:00 Complete Blood Count LAB 01/11/25 Verified 04:00 Comprehensive LAB 01/11/25 Verified Metabolic Panel 04:00 Echo 2d Mode Cardiac US 01/10/25 Logged DOP 09:17 Condition: Fair [facility] 01/10/25 In Process 09:[address] [facility] 01/10/25 Logged (Tylenol Tablet) 09:30 Bedrest With Bathroom [facility] 01/10/25 In Process Privileg 09:[address] [facility] 01/10/25 Logged Sublingual (Ntrostat 09:30 Morphine Sulfate PHA 01/10/25 Logged Injection 09:30 Stat Ekg For Chest [facility] 01/10/25 In Process Pain 09:17 Notify Of Changes [facility] 01/10/25 In Process From Base 09:17 Sign Carpenter For [facility] 01/10/25 In Process 24 Hours 09:17 Emergency Dysrhythmia [facility] 01/10/25 In Process Protocol 09:17 Rhythm Strips Once [facility] 01/10/25 In Process Every Shift 09:17 Oxygen By Nasal RT 01/10/25 Transmitted Cannula 09:17 * Radiologist Consult CONS 01/10/25 Transmitted 09:19 Prothrombin Time W/ LAB 01/10/25 Logged INR 09:19 Furosemide Injection PHA 01/10/25 Logged (Lasix Injection) 10:00 B-Type Natriuretic LAB 01/11/25 Verified Peptide 04:00 Albuterol Medneb PHA 01/10/25 Logged (Ventolin Medneb) 09:30 Apixaban (Eliquis) PHA 01/10/25 Logged 10:00 Aspirin Enteric PHA 01/10/25 Logged Coated Tablet 10:00 Atorvastatin (Lipitor) PHA 01/10/25 Logged 22:00 Digoxin Tablet PHA 01/10/25 Logged (Lanoxin Tablet) 10:00 Empagliflozin PHA 01/10/25 Logged (Jardiance) 10:00 Hydrocodone-Acet PHA 01/10/25 Logged 5/325mg Tab ([place] 09:30 Sacubitril-Valsartan PHA 01/10/25 Logged (Entresto 24-26 Mg 10:00 Tamsulosin PHA 01/10/25 Logged Hydrochloride (Flomax) 10:00 (Nf) Atorvastatin PHA 01/10/25 Logged Calcium 10:00 Carvedilol Tablet PHA 01/10/25 Logged (Coreg Tablet) 10:00 Date of Service: Jan 10, 2025 Billing Provider: ELIANE MOORE Common Visit Codes: [id number] INP/OBS CARE (HIGH) ELIANE MOORE Jan 10, 2025 09:38
[2025-01-10 10:12] LABS: INR 1.37 (0.9-1.15); Prothrombin Time 14.1 sec (9.3-11.8)
[2025-01-10] MEDS: ENOXAPARIN SOD 40 MG/0.4 ML SYRINGE SC SCH (10:14)
[2025-01-10] MEDS: EMPAGLIFLOZIN 10 MG TAB PO SCH (11:28)
[2025-01-10] MEDS: CARVEDILOL 3.125 MG TAB PO SCH (11:28)
[2025-01-10] MEDS: APIXABAN 5 MG TAB PO SCH ×2 (11:28→21:11)
[2025-01-10] MEDS: ASPirin-EC 81 mg tab PO SCH (11:28)
[2025-01-10] MEDS: SACUBITRIL-VALSARTAN 24mg/26mg TAB PO SCH (11:28)
[2025-01-10] MEDS: FUROSEMIDE 40 MG/4 ML VIAL IV SCH (11:30)
[2025-01-10] MEDS: TAMSULOSIN HYDROCHLORIDE 0.4 MG CAP PO SCH (17:17)
[2025-01-10] MEDS: DIGOXIN 0.125 MG TAB PO SCH (17:19)
[2025-01-10] MEDS: ATORVASTATIN 20 MG TAB PO SCH (21:12)
[2025-01-10] MEDS ORDERED: ATORVASTATIN 20 MG TAB PO SCH (22:00)
[2025-01-11] VITALS (13 sets, daily range): BP systolic 79–130; BP diastolic 44–96; PULSE 64–144; RESP 17–22; TEMP 97.5–98.6; O2SAT 93–98
[2025-01-11 05:41] LABS: Hematocrit 37.4 % (41.0-53.0); Hemoglobin 11.8 g/dL (13.5-17.5); Mean Corpuscular Hemoglobin 24.6 pg (28.0-32.0); Mean Corpuscular Volume 78.2 fL (80.0-100.0); Nucleated Red Blood Cells % 0.1 %
[2025-01-11 06:00] LABS: Alanine Aminotransferase 12 U/L (7-40); Albumin 3.5 g/dL (3.2-4.8); Anion Gap 8 (5-15); BUN/Creatinine Ratio 24.4 (10.0-20.0); Carbon Dioxide 29 mmol/L (20-31); Chloride 100 mmol/L (98-107); Glucose 92 mg/dL (74-106); Sodium 137 mmol/L (136-145); Total Protein 5.8 g/dL (5.7-8.2)
[2025-01-11 06:12] LABS: Alkaline Phosphatase 277 U/L (46-116); Bilirubin, Total 2.3 mg/dL (0.2-1.0); Blood Urea Nitrogen 29 mg/dL (9-23); Calcium 8.5 mg/dL (8.7-10.4); Potassium 3.5 mmol/L (3.5-5.1)
--- NOTE | 2025-01-11 13:56 | DVHPN2 ---
Reviewed: Care Plan, H&P, Labs, Medications, Previous Orders, Radiology Changes from previous H/P or p: No Changes Respiratory: Shortness of breath Objective Vitals Vital Signs Date Time Temp Pulse Resp B/P (MAP) Pulse Ox O2 Delivery O2 Flow Rate FiO2 01/11/25 12:40 97.8 64 20 130/82 (98) 94 97.8 01/11/25 09:32 Room Air 01/11/25 09:32 0 21 Intake/Output Intake and Output 01/11/25 07:00 Intake Total 730 ml Output Total 1950 ml Balance -1220 ml Intake Oral 730 ml Output Urine Total 1950 ml Medications Current Medications Medications Dose Ordered Sig/Zainab Route Start Time Stop Time Status Last Admin Dose Admin Enoxaparin Sodium 40 mg DAILY SC 01/10/25 10:00 Hold 01/10/25 10:14 40 MG Acetaminophen 650 mg Q6HP PRN PO 01/10/25 09:30 Nitroglycerin 0.4 mg Q5MINP PRN SL 01/10/25 09:30 Morphine Sulfate 2 mg Q30M PRN IV 01/10/25 09:30 Furosemide 40 mg DAILY IV 01/10/25 10:00 01/11/25 10:35 40 MG Albuterol 2.5 mg Q2HPRN PRN NEB 01/10/25 09:30 Aspirin 81 mg DAILY PO 01/10/25 10:00 01/11/25 10:37 81 MG Atorvastatin Calcium 10 mg HS PO 01/10/25 22:00 Cancel Carvedilol 3.125 mg BID PO 01/10/25 10:00 Digoxin 0.125 mg DAILY PO 01/10/25 17:10 01/11/25 10:37 0.125 MG Empaglifozin 10 mg DAILY PO 01/10/25 10:00 01/11/25 10:35 10 MG Acetaminophen/ Hydrocodone Bitart 1 tab QID PRN PO 01/10/25 09:30 Sacubitril/ Valsartan 1 tab BID PO 01/10/25 10:00 01/10/25 21:11 1 TAB Tamsulosin HCl 0.4 mg QPM PO 01/10/25 18:00 01/10/25 17:17 0.4 MG Atorvastatin Calcium 40 mg HS PO 01/10/25 22:00 01/10/25 21:12 40 MG Apixaban 5 mg BID PO 01/10/25 22:00 01/11/25 10:37 5 MG Laboratory Results Laboratory Tests 01/11/25 05:01 Chemistry Test 01/11/25 05:01 Albumin 3.5 g/dL (3.2-4.8) Calcium Level 8.5 mg/dL (8.7-10.4) L Total Protein 5.8 g/dL (5.7-8.2) Cardiac Markers Test 01/11/25 05:01 B-Type Natriuretic Peptide 3144.62 pg/mL (0-100) LFT Test 01/11/25 05:01 Alanine Aminotransferase (ALT) 12 U/L (7-40) Alkaline Phosphatase 277 U/L (46-116) H Aspartate Amino Transferase (AST) 26 U/L (13-40) Total Bilirubin 2.3 mg/dL (0.2-1.0) H Urinalysis Test 01/10/25 07:54 Urine Color Light-yellow (Yellow) Urine Clarity Clear (Clear) Urine pH 5.0 (5.0-9.0) Urine Specific [place] 1.009 (1.001-1.035) Urine Protein Negative (Negative) Urine Ketones Negative (Negative) Urine Blood Negative /uL (Negative) Urine Nitrite Negative (Negative) Urine Bilirubin Negative (Negative) Urine Urobilinogen Normal mg/dL (Negative) Urine Leukocyte Esterase Negative /uL (Negative) Urine RBC None seen /hpf (0 - 3) Urine Microscopic WBC < 1 /HPF (0-3) Urine Squamous Epithelial Cells None seen /hpf (<5) Urine Bacteria None seen /hpf (None Seen) Urine Hyaline Casts Mod /lpf (0 - 2) Urine Glucose Normal mg/dL (Normal) Labs and/or images reviewed: Labs reviewed by me, Image(s) reviewed by me Assessment/Plan Assessment/Plan Acute CHF exacerbation Lasix cardiology consult Hypertension Hypercholesterolemia Polysubstance abuse including alcohol and methamphetamine: Counseled Pleural effusion: Radiology consult for thoracentesis Time spent 50 minutes Advanced care planning time 20 minutes Patient is full code Plan discussed with: Patient Date of Service: Jan 11, 2025 Billing Provider: TAMMI LYNN MD Common Visit Codes: [id number] INP/OBS CARE(HIGH) Secondary Visit Codes: [id number] CARE PLAN 30 MINUTES TAMMI LYNN MD Jan 11, 2025 13:56
[2025-01-11] MEDS: BACITRACIN TOP OINT 1 UD PKG TOP SCH (22:59)
--- NOTE | 2025-01-11 23:41 | DVHINCON2 ---
Date of service: Jan 11, 2025 Referring Physician Amaury Reason for Consultation CHF exacerbation History of Present Illness This is a 59-year-old male with a past medical history of methamphetamine, hypertension, hyperlipidemia, AFib, CHF who presents to ED with a complaint of shortness of breath. The patient was discharged last month at [facility] for increased shortness of breath. The patient is here as he is concerned that his shortness of breath has not improved within the last few days. The patient states he has been off his Lasix and other medications for the past few days. BUN 29, TROP 29, 30, 32.Chest x-ray shows moderate right pleural effusion. EKG shows tachycardia at 140. Patient was admitted to the hospital. I am asked to consult on this patient. Family History: FH: myocardial infarction G8 FATHER FH: natural G8 MOTHER 19 CHILD Allergies: Coded Allergies: Amiodarone (Verified Allergy, Unknown, 08/16/23) Metoprolol (Verified Allergy, Unknown, rapid decrease in blood pressure, 02/13/24) Penicillins (Verified Allergy, Unknown, 06/09/23) Home Meds Active Scripts Tamsulosin Hcl (Flomax) 0.4 Mg Cap, 0.4 CAP PO DAILY, #90 CAP 3 Refills Prov:RAJANI CLAROS RESDIENT 12/19/24 Atorvastatin Calcium (ATORVASTATIN CALCIUM) 40 Mg Tab, 40 MG PO DAILY for 30 Days, #30 TAB 3 Refills Prov:RAJANI CLAROS RESDIENT 12/19/24 Apixaban Base (ELIQUIS) 5 Mg Tab, 5 MG PO BID for 30 Days, #60 TAB 3 Refills Prov:RAJANI CLAROS RESDIENT 12/19/24 Aspirin (Aspirin) 81 Mg Chw, 81 MG PO DAILY for 30 Days, #30 TAB.CHEW 3 Refills Prov:RAJANI CLAROS RESDIENT 12/19/24 Potassium Chloride (Potassium Chloride ER) 10 Meq Tab, 10 MEQ PO DAILY for 30 Days, #30 TAB 3 Refills Prov:RAJANI CLAROS RESDIENT 12/19/24 Furosemide (Lasix) 20 Mg Tb, 20 MG PO DAILY for 30 Days, #30 TAB 3 Refills Prov:RAJANI CLAROS RESDIENT 12/19/24 Carvedilol (Carvedilol) 3.125 Mg Tab, 3.125 MG PO BID for 30 Days, #60 TAB 3 Refills Prov:RAJANI CLAROS RESDIENT 12/19/24 Empagliflozin (Jardiance) 10 Mg Tab, 10 MG PO DAILY for 30 Days, #30 TAB 3 Refills Prov:RAJANI CLAROS RESDIENT 12/19/24 Spironolactone (Spironolactone) 25 Mg Tab, 25 MG PO DAILY for 30 Days, #30 TAB 3 Refills Prov:RAJANI CLAROS RESDIENT 12/19/24 Sacubitril-Valsartan (Entresto 24-26 mg) 1 Tab Tab, 1 TAB PO BID for 30 Days, #60 TAB 3 Refills Prov:RAJANI CLAROS RESDIENT 12/19/24 Hydrocodone-Acetaminophen (Hydrocodone Bitartrate/AC 5-325 mg) 1 Tab Tab, 1 TAB PO QID PRN, #20 TAB Prov:TAMMI LYNN MD 10/17/24 Metronidazole (Metronidazole) 500 Mg Tab, 500 MG PO TID, #20 TAB Prov:TAMMI LYNN MD 10/17/24 Levofloxacin Hemihydrate (LEVAQUIN 500 MG) 500 Mg Tab, 1 TAB PO DAILY, #7 TAB Prov:TAMMI LYNN MD 10/17/24 Digoxin (Digoxin) 125 Mcg Tab, 125 MCG PO DAILY for 20 Days, #20 TAB Prov:RAJANI CLAROS RESDIENT 09/06/24 Acetaminophen (Acetaminophen) 500 Mg Tab, 500 MG PO QIDP, #30 TAB 0 Refills Prov:DONNELL BRITO 04/15/24 Carvedilol (COREG) 3.125 Mg Tab, 3.125 MG PO Q12HR for 30 Days, #60 TAB Prov:ANTIONE LUA 02/15/24 Spironolactone (Aldactone) 25 Mg Tab, 12.5 MG PO DAILY for 30 Days, #15 TAB 6 Refills Prov:JAH AYALA DO 08/19/23 Sacubitril-Valsartan (Entresto 24-26 mg) 1 Tab Tab, 1 TAB PO BID for 30 Days, #60 TAB 6 Refills Prov:JAH AYALA DO 08/19/23 Empagliflozin (Jardiance) 10 Mg Tab, 10 MG PO DAILY for 30 Days, #30 TAB 6 Refills Prov:JAH AYALA DO 08/19/23 Atorvastatin Calcium (ATORVASTATIN CALCIUM) 20 Mg Tab, 10 MG PO HS for 30 Days, #15 TAB 6 Refills Prov:JAH AYALA DO 08/19/23 Aspirin (Aspirin Low Dose) 81 Mg Tab, 81 MG PO DAILY for 30 Days, #30 TAB 6 Refills Prov:JAH AYALA DO 08/19/23 Reported Medications Potassium Chloride (Potassium Chloride ER) 10 Meq Tab, 1 TAB PO BID for 5 Days, #10 10/06/24 Tamsulosin Hcl (Tamsulosin Hcl) 0.4 Mg Cap, 1 CAP PO DAILY for 30 Days, #30 10/06/24 Apixaban Base (ELIQUIS) 5 Mg Tab, 1 TAB PO BID for 90 Days, #180 10/06/24 Furosemide (Furosemide) 40 Mg Tab, 1 TAB PO DAILY for 90 Days, #90 10/06/24 Current Medications Current Medications Medications (Trade) Dose Ordered Sig/Zainab Route PRN Reason Start Time Stop Time Status Last Admin Atorvastatin Calcium (Lipitor) 10 mg HS PO 01/10/25 22:00 Cancel Atorvastatin Calcium (Lipitor) 40 mg HS PO 01/10/25 22:00 01/10/25 21:12 Apixaban (Eliquis) 5 mg BID PO 01/10/25 22:00 01/11/25 10:37 Bacitracin 1 applic BID TOP 01/11/25 22:00 Review of Systems Constitutional: reports: weakness; denies: chills, diaphoresis, fatigue, fever, malaise, sweats, others EENTM: denies: blurred vision, double vision, ear bleeding, ear discharge, ear drainage, ear pain, ear ringing, eye pain, eye redness, hearing loss, mouth pain, mouth swelling, nasal discharge, nose bleeding, nose congestion, nose pain, photophobia, tearing, throat pain, throat swelling, voice changes, others Respiratory: reports: SOB at rest, shortness of breath, SOB with excertion; denies: cough, hemoptysis, orthopnea, stridor, wheezing, others Cardiovascular: reports: chest pain, dizzy spells, edema; denies: diaphoresis, Dyspnea on exertion, irregular heart beat, left arm pain, lightheadedness, palpitations, PND, syncope, others Gastrointestinal: denies: abdomen distended, abdominal pain, blood streaked bowels, constipated, diarrhea, dysphagia, difficulty swallowing, hematemesis, melena, nausea, poor appetite, poor fluid intake, rectal bleeding, rectal pain, vomiting, others Genitourinary: denies: burning, dysuria, flank pain, frequency, hematuria, incontinence, penile discharge, penile sore, pain, testicle pain, testicle swelling, urgency, others Neurological: denies: dizziness, fainting, headache, left sided numbness, left sided weakness, numbness, paresthesia, pre-existing deficit, right sided numbness, right sided weakness, seizure, speech problems, tingling, tremors, weakness, others Musculoskeletal: denies: back pain, gout, joint pain, joint swelling, muscle pain, muscle stiffness, neck pain, others Integumetry: denies: bruises, change in color, change in hair/nails, dryness, laceration, lesions, lumps, rash, wounds, others Allergic/Immunocompromised: denies: Difficulty Healing, Frequent Infections, Hives, Itching, others Hematologic/Lymphatic: denies: anemia, blood clots, easy bleeding, easy bruising, swollen glands, others Endocrine: denies: excessive hunger, excessive sweating, excessive thirst, excessive urination, flushing, intolerance to cold, intolerance to heat, unexplained weight gain, unexplained weight loss, others Psychiatric: denies: anxiety, bipolar disorder, depression, hopeless, panic disorder, schizophrenia, sleepless, suicidal, others Vital Signs Vital Signs Date Time Temp Pulse Resp B/P (MAP) Pulse Ox O2 Delivery O2 Flow Rate FiO2 01/11/25 17:00 97.5 90 20 105/96 (99) 96 97.5 01/11/25 09:32 Room Air 01/11/25 09:32 0 21 Physical Exam GENERAL: Alert and oriented x 3. No acute distress. EYES: PERRL, EOMI. Anicteric. HENT: Moist mucous membranes. LUNGS: Clear to auscultation bilaterally. CARDIOVASCULAR: Regular rate and rhythm. ABDOMEN: Soft, nontender and nondistended. EXTREMITIES: No edema. NEUROLOGIC: No focal neurological deficits. SKIN: Warm, dry. Labs/Diagnostic Data Labs Test 01/11/25 05:01 01/10/25 07:54 01/10/25 06:50 01/10/25 03:45 Range/Units White Blood Count 9.8 4.4-10.8 10^3/uL Red Blood Count 4.78 4.5-5.90 10^6/uL Hemoglobin 11.8 L 13.5-17.5 g/dL Hematocrit 37.4 L 41.0-53.0 % Mean Corpuscular Volume 78.2 L 80.0-100.0 fL Mean Corpuscular Hemoglobin 24.6 L 28.0-32.0 pg Mean Corpuscular Hemoglobin Concent 31.5 L 32.0-36.0 g/dL Red Cell Distribution Width 21.0 H 11.8-14.3 % Platelet Count 380 140-450 10^3/uL Mean Platelet Volume 7.7 6.9-10.8 fL Neutrophils (%) (Auto) 74.1 37.0-80.0 % Lymphocytes (%) (Auto) 9.1 L 10.0-50.0 % Monocytes (%) (Auto) 13.9 H 0.0-12.0 % Eosinophils (%) (Auto) 1.8 0.0-7.0 % Basophils (%) (Auto) 1.1 0.0-2.0 % Neutrophils # (Auto) 7.3 1.6-8.6 10 ^3/uL Lymphocytes # (Auto) 0.9 0.4-5.4 10 ^3/uL Monocytes # (Auto) 1.4 H 0-1.3 10 ^3/uL Eosinophils # (Auto) 0.2 0-0.8 10 ^3/uL Basophils # (Auto) 0.1 0-0.2 10 ^3/uL Nucleated Red Blood Cells 0.1 % Sodium Level 137 136-145 mmol/L Potassium Level 3.5 3.5-5.1 mmol/L Chloride Level 100 98-107 mmol/L Carbon Dioxide Level 29 20-31 mmol/L Anion Gap 8 5-15 Blood Urea Nitrogen 29 H 9-23 mg/dL Creatinine 1.19 0.700-1.30 mg/dL Glomerular Filtration Rate Calc 71 >90 mL/min BUN/Creatinine Ratio 24.4 H 10.0-20.0 Serum Glucose 92 74-106 mg/dL Calcium Level 8.5 L 8.7-10.4 mg/dL Total Bilirubin 2.3 H 0.2-1.0 mg/dL Aspartate Amino Transferase (AST) 26 13-40 U/L Alanine Aminotransferase (ALT) 12 7-40 U/L Alkaline Phosphatase 277 H 46-116 U/L B-Type Natriuretic Peptide 3144.62 0-100 pg/mL Total Protein 5.8 5.7-8.2 g/dL Albumin 3.5 3.2-4.8 g/dL Urine Color Light-yellow Yellow Urine Clarity Clear Clear Urine pH 5.0 5.0-9.0 Urine Specific [place] 1.009 1.001-1.035 Urine Protein Negative Negative Urine Ketones Negative Negative Urine Blood Negative Negative /uL Urine Nitrite Negative Negative Urine Bilirubin Negative Negative Urine Urobilinogen Normal Negative mg/dL Urine Leukocyte Esterase Negative Negative /uL Urine RBC None seen 0 - 3 /hpf Urine Microscopic WBC < 1 0-3 /HPF Urine Squamous Epithelial Cells None seen <5 /hpf Urine Bacteria None seen None Seen /hpf Urine Hyaline Casts Mod 0 - 2 /lpf Urine Glucose Normal Normal mg/dL Urine Opiates Screen Neg NEGATIVE Urine Fentanyl Screen Neg NEGATIVE Urine Barbiturates Screen Neg NEGATIVE Urine Phencyclidine Screen Neg NEGATIVE Urine Amphetamines Screen Pos NEGATIVE Urine Benzodiazepines Screen Neg NEGATIVE Urine Cocaine Screen Neg NEGATIVE Urine Cannabinoids Screen Neg NEGATIVE Prothrombin Time 14.1 H 9.3-11.8 sec Prothrombin Time INR 1.37 H 0.9-1.15 Troponin I High Sensitivity 32 </=54 ng/L Activated Partial Thromboplast Time 25.1 24.5-34.5 SEC Magnesium Level 2.0 1.6-2.6 mg/dL Microbiology Date/Time Source Procedure Growth Status 01/10/25 21:46 Nose MRSA Screen - Final Methicillin Resistant S.aureus Complete Assessment Acute CHF exacerbation. Hypertension . Hypercholesterolemia Polysubstance abuse including alcohol and methamphetamine. Pleural effusion. AFib. Plan/Recommendation I agree with your ongoing assessment and care of plan. Echocardiogram. Morphine and [place] for pain management. Eliquis. Aspirin, Lipitor. Coreg. Digoxin. Diuretics with Lasix. Entresto. Nitro SL. Additional plan as per the hospital course. A total of 45 minutes was spent reviewing the patient record, examining the patient, making a diagnostic and therapeutic plan, discussing this plan with medical personnel, following up on diagnostic studies and following the patient for clinical stability excluding any and all procedures. At least 50% of this time was spent in direct, [id number] contact. Plan discussed with: Patient MARTIN BLANCA MD Jan 11, 2025 19:13
[2025-01-12] VITALS (8 sets, daily range): BP systolic 83–133; BP diastolic 43–81; PULSE 61–142; RESP 16–19; TEMP 97.1–98.9; O2SAT 92–97
--- NOTE | 2025-01-12 08:45 | DVH ---
Bilateral Chest Sonogram Date: 01/12/2025 08:25 AM Clinical history: FLUID CHECK FOR POSSIBLE THORACENTESIS Technique: Limited sonographic evaluation of the bilateral chest was performed to evaluate for pleu ral effusion. Finding/Impression: Moderate right pleural effusion and small left pleural effusion.
--- NOTE | 2025-01-12 11:09 | DVH ---
US THORACENTESIS, HISTORY: PLEURAL EFFUSION PROCEDURE: Informed consent was obtained. The patient was seated on the bed. A limited localization u ltrasound of the right thorax was obtained, and the optimal approach was marked on the skin. The area was prepped with chlorhexidine which was allowed to dry and draped in the usual sterile fashion. Misael e out was performed. The skin and the soft tissues were infiltrated with 1% lidocaine. A 5.5 [place] c entesis needle catheter was advanced into right pleural space. Following aspiration of fluid, the cat heter was advanced and the needle removed. About 1500 cc of fluid was drained. Specimen/s was/were se nt for appropriate cultures/cytology/cultures and cytology. No immediate complication was identified. FINDINGS: Moderate right pleural effusion. Aspirated fluid is clear and serous. IMPRESSION: Right thoracentesis with 1.5L removed.
--- NOTE | 2025-01-12 11:58 | DVH ---
EXAM: XY CHEST PORTABLE Indication: POST THORACENTESIS Technique: Single frontal view of the chest was obtained Comparison: XY CHEST PORTABLE on DOS: 01/10/25, XY CHEST PORTABLE on DOS: 12/19/24, XY CHEST PORTABLE on DOS: 12/16/24, XY CHEST XRAY 1 VIEW on DOS: 12/15/24, XY CHEST PORTABLE on DOS: 10/14/24 FINDINGS: Lines and Tubes: None Lungs: Interval decrease in right pleural effusion. No pneumothorax. Cardiomediastinal contours: Cardiomegaly. Bones: No acute osseous abnormality. IMPRESSION: Cardiomegaly. Interval decrease in right pleural effusion.
--- NOTE | 2025-01-12 18:14 | DVHPN2 ---
Subjective Seen and examined at bedside. s/p Thoracentesis done. UDS still positive for Amphetamines. Reviewed: Care Plan, H&P, Labs, Medications, Previous Orders, Radiology Changes from previous H/P or p: No Changes Respiratory: Shortness of breath Objective Vitals Vital Signs Date Time Temp Pulse Resp B/P (MAP) Pulse Ox O2 Delivery O2 Flow Rate FiO2 01/12/25 16:58 98.9 103 19 111/67 (82) 92 98.9 01/12/25 08:00 Room Air* 0 21 Intake/Output Intake and Output 01/12/25 07:00 Intake Total 2326 ml Output Total 2750 ml Balance -424 ml Intake Oral 2326 ml Output Urine Total 2750 ml # Bowel Movements 1 General Appearance: Alert, Oriented X3, Cooperative, No acute distress HEENT: Atraumatic Lungs: Other (creps) Cardiovascular: Regular rate, Normal S1, Normal S2 Abdomen: Normal bowel sounds, Soft Rectal: Deferred Psych/Mental Status: Mental status NL Medications Current Medications Medications Dose Ordered Sig/Zainab Route Start Time Stop Time Status Last Admin Dose Admin Enoxaparin Sodium 40 mg DAILY SC 01/10/25 10:00 Hold 01/10/25 10:14 40 MG Acetaminophen 650 mg Q6HP PRN PO 01/10/25 09:30 Nitroglycerin 0.4 mg Q5MINP PRN SL 01/10/25 09:30 Morphine Sulfate 2 mg Q30M PRN IV 01/10/25 09:30 Furosemide 40 mg DAILY IV 01/10/25 10:00 01/12/25 08:41 40 MG Albuterol 2.5 mg Q2HPRN PRN NEB 01/10/25 09:30 Cancel Aspirin 81 mg DAILY PO 01/10/25 10:00 01/12/25 08:41 81 MG Atorvastatin Calcium 10 mg HS PO 01/10/25 22:00 Cancel Carvedilol 3.125 mg BID PO 01/10/25 10:00 Digoxin 0.125 mg DAILY PO 01/10/25 17:10 01/12/25 08:55 0.125 MG Empaglifozin 10 mg DAILY PO 01/10/25 10:00 01/12/25 08:41 10 MG Acetaminophen/ Hydrocodone Bitart 1 tab QID PRN PO 01/10/25 09:30 Sacubitril/ Valsartan 1 tab BID PO 01/10/25 10:00 01/12/25 08:41 1 TAB Tamsulosin HCl 0.4 mg QPM PO 01/10/25 18:00 01/12/25 17:02 0.4 MG Atorvastatin Calcium 40 mg HS PO 01/10/25 22:00 01/11/25 22:58 40 MG Apixaban 5 mg BID PO 01/10/25 22:00 01/12/25 08:41 5 MG Bacitracin 1 applic BID TOP 01/11/25 22:00 01/12/25 08:41 1 APPLIC Laboratory Results Laboratory Tests 01/11/25 05:01 Urinalysis Test 01/10/25 07:54 Urine Color Light-yellow (Yellow) Urine Clarity Clear (Clear) Urine pH 5.0 (5.0-9.0) Urine Specific [place] 1.009 (1.001-1.035) Urine Protein Negative (Negative) Urine Ketones Negative (Negative) Urine Blood Negative /uL (Negative) Urine Nitrite Negative (Negative) Urine Bilirubin Negative (Negative) Urine Urobilinogen Normal mg/dL (Negative) Urine Leukocyte Esterase Negative /uL (Negative) Urine RBC None seen /hpf (0 - 3) Urine Microscopic WBC < 1 /HPF (0-3) Urine Squamous Epithelial Cells None seen /hpf (<5) Urine Bacteria None seen /hpf (None Seen) Urine Hyaline Casts Mod /lpf (0 - 2) Urine Glucose Normal mg/dL (Normal) Microbiology Microbiology Date/Time Source Procedure Growth Status 01/10/25 21:46 Nose MRSA Screen - Final Methicillin Resistant S.aureus Complete Assessment/Plan Assessment/Plan # Acute Systolic CHF - Bumex IV # Pulm Edema # 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
[2025-01-12] MEDS: BUMETANIDE 2.5mg/10ml (0.25 mg/ml) INJ IV ONE (18:20)
--- NOTE | 2025-01-12 23:23 | DVHPN2 ---
Progress Note - Dictate Date Seen: Jan 12, 2025 Medical Necessity Reason Pt with a Central, PICC or Fol: No Subjective Patient was seen and evaluated in follow up. Patient is c/o SOB. UDS + AMPH. Patient is s/p right thoracentesis with 1.5L removed. Patient is afebrile. Telemetry reviewed. vital signs Vital Sign Date Time Temp Pulse Resp B/P (MAP) Pulse Ox O2 Delivery O2 Flow Rate FiO2 01/12/25 21:00 98.0 61 16 133/81 (98) 96 98.0 01/12/25 08:00 Room Air* 0 21 Total Intake and Output 01/11/25 01/11/25 01/12/25 15:00 23:00 07:00 Intake Total 466 ml 1000 ml 860 ml Output Total 2050 ml 700 ml Balance 466 ml -1050 ml 160 ml medications Current Medications Medications Dose Ordered Sig/Zainab Route Start Time Stop Time Status Last Admin Dose Admin Enoxaparin Sodium 40 mg DAILY SC 01/10/25 10:00 Hold 01/10/25 10:14 40 MG Acetaminophen 650 mg Q6HP PRN PO 01/10/25 09:30 Nitroglycerin 0.4 mg Q5MINP PRN SL 01/10/25 09:30 Morphine Sulfate 2 mg Q30M PRN IV 01/10/25 09:30 Albuterol 2.5 mg Q2HPRN PRN NEB 01/10/25 09:30 Cancel Aspirin 81 mg DAILY PO 01/10/25 10:00 01/12/25 08:41 81 MG Atorvastatin Calcium 10 mg HS PO 01/10/25 22:00 Cancel Carvedilol 3.125 mg BID PO 01/10/25 10:00 Digoxin 0.125 mg DAILY PO 01/10/25 17:10 01/12/25 08:55 0.125 MG Acetaminophen/ Hydrocodone Bitart 1 tab QID PRN PO 01/10/25 09:30 Sacubitril/ Valsartan 1 tab BID PO 01/10/25 10:00 01/12/25 21:22 1 TAB Tamsulosin HCl 0.4 mg QPM PO 01/10/25 18:00 01/12/25 17:02 0.4 MG Atorvastatin Calcium 40 mg HS PO 01/10/25 22:00 01/12/25 21:22 40 MG Apixaban 5 mg BID PO 01/10/25 22:00 01/12/25 21:22 5 MG Bacitracin 1 applic BID TOP 01/11/25 22:00 01/12/25 21:22 1 APPLIC Bumetanide 2.5 mg BIDD IV 01/13/25 06:00 objective GENERAL: Alert and oriented x 3. No acute distress. EYES: PERRL, EOMI. Anicteric. HENT: Moist mucous membranes. LUNGS: Clear to auscultation bilaterally. CARDIOVASCULAR: Regular rate and rhythm. ABDOMEN: Soft, nontender and nondistended. EXTREMITIES: No edema. NEUROLOGIC: No focal neurological deficits. SKIN: Warm, dry. laboratory and microbiology Laboratory Tests 01/11/25 05:01 Test 01/11/25 05:01 Range/Units Serum Glucose 92 74-106 mg/dL Problem List Acute CHF exacerbation. Hypertension . Hypercholesterolemia Polysubstance abuse including alcohol and methamphetamine. Pleural effusion. AFib. Assessment/Plan Continued all current supportive medical care. Echocardiogram. Morphine and [place] for pain management. Eliquis. Aspirin, Lipitor. Coreg. Digoxin. Diuretics with Lasix. Entresto. Additional plan as per the hospital course. Plan discussed with: Patient MARTIN BLANCA MD Jan 12, 2025 23:23
[2025-01-13 01:00] VITALS: BP 93/56; PULSE 69; RESP 19; TEMP 97.8; O2SAT 96
[2025-01-13 05:00] VITALS: BP 112/81; PULSE 87; RESP 16; TEMP 97.2; O2SAT 97
[2025-01-13] MEDS: BUMETANIDE 2.5mg/10ml (0.25 mg/ml) INJ IV SCH (05:41)
[2025-01-13 07:26] LABS: Chloride 102 mmol/L (98-107); Potassium 4.6 mmol/L (3.5-5.1); Sodium 140 mmol/L (136-145)
[2025-01-13 07:27] LABS: Anion Gap 6 (5-15)
[2025-01-13 07:32] LABS: Glucose 88 mg/dL (74-106)
[2025-01-13 07:33] LABS: BUN/Creatinine Ratio 18.7 (10.0-20.0); Magnesium 1.9 mg/dL (1.6-2.6)
[2025-01-13 07:36] LABS: Blood Urea Nitrogen 25 mg/dL (9-23); Calcium 8.2 mg/dL (8.7-10.4); Carbon Dioxide 32 mmol/L (20-31)
[2025-01-13 07:56] VITALS: PULSE 141
[2025-01-13 08:41] VITALS: BP 97/75; PULSE 90; RESP 14; TEMP 98; O2SAT 96
[2025-01-13 12:50] VITALS: BP 114/81; PULSE 102; RESP 14; TEMP 97.3; O2SAT 96
[2025-01-13] MEDS ORDERED: BUM1T PO (14:28)
[2025-01-13] MEDS ORDERED: APIX5TAB PO (14:28)
[2025-01-13] MEDS ORDERED: POTA-228 PO (14:28)
[2025-01-13] MEDS ORDERED: SACU1TAB PO (14:28)
[2025-01-13] MEDS ORDERED: ATOR40TA52 PO (14:28)
[2025-01-13] MEDS ORDERED: CARV3.1240 PO (14:28)
[2025-01-13] MEDS ORDERED: DIGO0.12 PO (14:28)
[2025-01-13] MEDS ORDERED: TAMS0.4C39 PO (14:28)
--- NOTE | 2025-01-13 14:31 | DVHDS2 ---
Discharge Summary Date of Admission Jan 10, 2025 at 09:17 Date of Discharge: Jan 13, 2025 Admitting Diagnosis Acute Systolic CHF Labs/Diagnostic Data: Laboratory Results Test 01/13/25 06:26 01/12/25 11:05 01/11/25 05:01 01/10/25 07:54 Sodium Level 140 mmol/L (136-145) Potassium Level 4.6 mmol/L (3.5-5.1) Chloride Level 102 mmol/L (98-107) Carbon Dioxide Level 32 mmol/L (20-31) Anion Gap 6 (5-15) Blood Urea Nitrogen 25 mg/dL (9-23) Creatinine 1.34 mg/dL (0.700-1.30) Glomerular Filtration Rate Calc 61 mL/min (>90) BUN/Creatinine Ratio 18.7 (10.0-20.0) Serum Glucose 88 mg/dL (74-106) Calcium Level 8.2 mg/dL (8.7-10.4) Magnesium Level 1.9 mg/dL (1.6-2.6) B-Type Natriuretic Peptide 1969.72 pg/mL (0-100) Body Fluid Source Pleural fluid Body Fluid pH 8.0 Body Fluid WBC (Manual) 121 CUMM (0-200) Body Fluid RBC (Manual) 273 CUMM (0-2000) Body Fluid Mononuclear Cells 61 % Body Fluid Polymorphonuclear Cells 39 % (0-25) White Blood Count 9.8 10^3/uL (4.4-10.8) Red Blood Count 4.78 10^6/uL (4.5-5.90) Hemoglobin 11.8 g/dL (13.5-17.5) Hematocrit 37.4 % (41.0-53.0) Mean Corpuscular Volume 78.2 fL (80.0-100.0) Mean Corpuscular Hemoglobin 24.6 pg (28.0-32.0) Mean Corpuscular Hemoglobin Concent 31.5 g/dL (32.0-36.0) Red Cell Distribution Width 21.0 % (11.8-14.3) Platelet Count 380 10^3/uL (140-450) Mean Platelet Volume 7.7 fL (6.9-10.8) Neutrophils (%) (Auto) 74.1 % (37.0-80.0) Lymphocytes (%) (Auto) 9.1 % (10.0-50.0) Monocytes (%) (Auto) 13.9 % (0.0-12.0) Eosinophils (%) (Auto) 1.8 % (0.0-7.0) Basophils (%) (Auto) 1.1 % (0.0-2.0) Neutrophils # (Auto) 7.3 10 ^3/uL (1.6-8.6) Lymphocytes # (Auto) 0.9 10 ^3/uL (0.4-5.4) Monocytes # (Auto) 1.4 10 ^3/uL (0-1.3) Eosinophils # (Auto) 0.2 10 ^3/uL (0-0.8) Basophils # (Auto) 0.1 10 ^3/uL (0-0.2) Nucleated Red Blood Cells 0.1 % Total Bilirubin 2.3 mg/dL (0.2-1.0) Aspartate Amino Transferase (AST) 26 U/L (13-40) Alanine Aminotransferase (ALT) 12 U/L (7-40) Alkaline Phosphatase 277 U/L (46-116) Total Protein 5.8 g/dL (5.7-8.2) Albumin 3.5 g/dL (3.2-4.8) Urine Color Light-yellow (Yellow) Urine Clarity Clear (Clear) Urine pH 5.0 (5.0-9.0) Urine Specific [place] 1.009 (1.001-1.035) Urine Protein Negative (Negative) Urine Ketones Negative (Negative) Urine Blood Negative /uL (Negative) Urine Nitrite Negative (Negative) Urine Bilirubin Negative (Negative) Urine Urobilinogen Normal mg/dL (Negative) Urine Leukocyte Esterase Negative /uL (Negative) Urine RBC None seen /hpf (0 - 3) Urine Microscopic WBC < 1 /HPF (0-3) Urine Squamous Epithelial Cells None seen /hpf (<5) Urine Bacteria None seen /hpf (None Seen) Urine Hyaline Casts Mod /lpf (0 - 2) Urine Glucose Normal mg/dL (Normal) Urine Opiates Screen Neg (NEGATIVE) Urine Fentanyl Screen Neg (NEGATIVE) Urine Barbiturates Screen Neg (NEGATIVE) Urine Phencyclidine Screen Neg (NEGATIVE) Urine Amphetamines Screen Pos (NEGATIVE) Urine Benzodiazepines Screen Neg (NEGATIVE) Urine Cocaine Screen Neg (NEGATIVE) Urine Cannabinoids Screen Neg (NEGATIVE) Test 9/6/25 06:50 01/10/25 03:45 Prothrombin Time 14.1 sec (9.3-11.8) Prothrombin Time INR 1.37 (0.9-1.15) Troponin I High Sensitivity 32 ng/L (</=54) Activated Partial Thromboplast Time 25.1 SEC (24.5-34.5) Other Laboratory Tests 01/13/25 06:26 01/11/25 05:01 Brief Hx & Hospital Course: Patient has an EF os 15% due to AMphetamine Abuse, admitted for Acute Systolic CHF and shortenss of breath. Underwent Thoracentesis, feeling better. Prescriptions refilled, counseled on medication compliance. 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 # Acute Hypoxic Resp Failure - resolved Discharge Disposition: Home Discharge Instruct/Medications Diet: Cardiac 2g Na,low cholest Activity: Light activity Follow Up/Referral: [facility] Medications: see [facility] Scheduled Acetaminophen (Acetaminophen), 500 MG PO QIDP Apixaban Base (Eliquis), 1 TAB PO BID, (Reported) Apixaban Base (Eliquis), 5 MG PO BID Aspirin (Aspirin Low Dose), 81 MG PO DAILY Aspirin (Aspirin), 81 MG PO DAILY Atorvastatin Calcium (Atorvastatin Calcium), 10 MG PO HS Atorvastatin Calcium (Atorvastatin Calcium), 40 MG PO DAILY Bumetanide (Bumex Tablet), 1 MG PO BID Carvedilol (Coreg), 3.125 MG PO Q12HR Carvedilol (Carvedilol), 3.125 MG PO BID Digoxin (Digoxin), 125 MCG PO DAILY Empagliflozin (Jardiance), 10 MG PO DAILY Empagliflozin (Jardiance), 10 MG PO DAILY Furosemide (Furosemide), 1 TAB PO DAILY, (Reported) Furosemide (Lasix), 20 MG PO DAILY Levofloxacin Hemihydrate (Levaquin 500 Mg), 1 TAB PO DAILY Metronidazole (Metronidazole), 500 MG PO TID Potassium Chloride (Potassium Chloride ER), 1 TAB PO BID, (Reported) Potassium Chloride (Potassium Chloride ER), 10 MEQ PO DAILY Sacubitril-Valsartan (Entresto 24-26 mg), 1 TAB PO BID Sacubitril-Valsartan (Entresto 24-26 mg), 1 TAB PO BID Spironolactone (Aldactone), 12.5 MG PO DAILY Spironolactone (Spironolactone), 25 MG PO DAILY Tamsulosin Hcl (Flomax), 0.4 CAP PO DAILY Tamsulosin Hcl (Tamsulosin Hcl), 1 CAP PO DAILY Scheduled PRN Hydrocodone-Acetaminophen (Hydrocodone Bitartrate/AC 5-325 mg), 1 TAB PO QID PRN Discharge Statement: "Patient was advised to return to the ER or call 911 if any headaches, dizziness, shortness of breath, chest pain, abdominal pain, bleeding, fevers, or worsening of medical condition. Patient was counseled about treatment plan, medications, possible side effects, patientverbalized understanding. All questions were answered to the best of my ability. This discharge took greater then 30 minutes in planning, reviewing documentation, counseling the patient, and discussing with other team members." ASSESSMENT ASSESSMENT Assessment Date of Service: Jan 13, 2025 Billing Provider: JOHN SHAH MD Common Visit Codes: 53657-PTH/OBS DISCH DAY >30min JOHN SHAH MD Jan 13, 2025 14:31
[2025-01-13 16:07] LABS: Glucose, Body Fluid 130.0 mg/dL (.); LD, Body Fluid 94.0 IU/L (.)
[2025-01-13 16:56] VITALS: BP 95/72; PULSE 74; RESP 18; TEMP 98; O2SAT 98
--- NOTE | 2025-01-13 22:36 | DVHPN2 ---
Progress Note - Dictate Date Seen: Jan 13, 2025 Medical Necessity Reason Pt with a Central, PICC or Fol: No Subjective Patient was seen and evaluated in follow up. Patient has no new complaints at this time. Patient denies any cardiac symptoms. Patient is cardiac stable for discharge. Telemetry reviewed. vital signs Vital Sign Date Time Temp Pulse Resp B/P (MAP) Pulse Ox O2 Delivery O2 Flow Rate FiO2 01/13/25 16:56 98.0 74 18 95/72 (80) 98 98.0 01/13/25 07:50 Room Air* 0 21 Total Intake and Output 01/12/25 01/12/25 01/13/25 15:00 23:00 07:00 Intake Total 650 ml 350 ml Output Total 800 ml 1600 ml Balance -150 ml -1250 ml medications Current Medications Medications Dose Ordered Sig/Zainab Route Start Time Stop Time Status Last Admin Dose Admin Albuterol 2.5 mg Q2HPRN PRN NEB 01/10/25 09:30 Cancel Atorvastatin Calcium 10 mg HS PO 01/10/25 22:00 Cancel objective GENERAL: Alert and oriented x 3. No acute distress. EYES: PERRL, EOMI. Anicteric. HENT: Moist mucous membranes. LUNGS: Clear to auscultation bilaterally. CARDIOVASCULAR: Regular rate and rhythm. ABDOMEN: Soft, nontender and nondistended. EXTREMITIES: No edema. NEUROLOGIC: No focal neurological deficits. SKIN: Warm, dry. laboratory and microbiology Laboratory Tests 01/13/25 06:26 01/11/25 05:01 Test 01/13/25 06:26 Range/Units Serum Glucose 88 74-106 mg/dL Problem List Acute CHF exacerbation. Hypertension . Hypercholesterolemia Polysubstance abuse including alcohol and methamphetamine. Pleural effusion. AFib. Assessment/Plan Continued all current supportive medical care. Morphine and Tracy for pain management. Eliquis. Aspirin, Lipitor. Coreg. Digoxin. Diuretics with Lasix. Entresto. Additional plan as per the hospital course. Plan discussed with: Patient MARTIN BLANCA MD Jan 13, 2025 22:36
--- NOTE | 2025-01-14 08:21 | ECG ---
[facility] Test Date: 2025-01-10 Test Time: 20:25:40 Pat Name: CARMEN BERNAL Department: Room: 0283T A Gender: M Sole Dyer: : 1965 Requested By: ELIANE MOORE Order Number: [id number] Reading MD: Measurements Intervals [place] Rate: 117 P: 0 SD: 0 QRS: 59 QRSD: 95 T: 257 QT: 379 QTc: 529 Interpretive Statements Atrial fibrillation Low voltage, extremity leads RSR' in V1 or V2, right VCD or RVH Nonspecific T abnormalities, lateral leads Prolonged QT interval Please click the below link to view image of tracing.
== END 2025-01-13 17:56 | disposition home or self-care (01) | DRG 133 ==
LOC: ER 03:39 → OVERFLOW 09:17 → TELE-WESTW 18:59
PROVIDERS: ADMIT Internal Medicine; ATTEND Internal Medicine
PROC: 0W993ZZ Drainage of Right Pleural Cavity, Percutaneous Approach (ICD-10-PCS; principal; 2025-01-12)
DX: J96.01 Acute respiratory failure with hypoxia (principal); I50.23 Acute on chronic systolic (congestive) heart failure; I27.20 Pulmonary hypertension, unspecified; I42.0 Dilated cardiomyopathy; I11.0 Hypertensive heart disease with heart failure; J91.8 Pleural effusion in other conditions classified elsewhere; E78.00 Pure hypercholesterolemia, unspecified; I48.91 Unspecified atrial fibrillation; F17.210 Nicotine dependence, cigarettes, uncomplicated; F15.10 Other stimulant abuse, uncomplicated; Z88.0 Allergy status to penicillin; Z88.8 Allergy status to other drugs, medicaments and biological substances; Z82.49 Family history of ischemic heart disease and other diseases of the circulatory system; Z79.01 Long term (current) use of anticoagulants
CPT/HCPCS: 32555; 36415; 71045; 76604; 76942; 80048; 80053; 80307; 81001; 83735; 83880; 83986; 84484; 85025; 85610; 85730; 87070; 87081; 87205; 89051; 93005; 96374; G0378

== ENCOUNTER 2025-03-14 22:48 | Emergency (ER) | payer MEDICAID ==
[~2025-03-14] VITALS: Ht 182.9 cm; Wt 77.0 kg
[~2025-03-14 22:48] MED LIST changes: -ACET500T58 PO; -ASPI-325 PO; -ASPI81CH49 PO; -ATOR20TA50 PO; +BUM1T PO; -CARV-214 PO; -EMPA1TAB PO; -FURO1TAB33 PO; -FURO40TA4 PO; -HYDR-4902 PO; -LEVO500T91 PO; -MET500T PO; -SPIR25TA PO; -SPIR25TA8 PO; -TAMS-35 PO
[2025-03-14 22:49] VITALS: BP 109/75; PULSE 125; RESP 20; TEMP 101.5; O2SAT 95
[2025-03-14] MEDS ORDERED: LACTATED RINGER'S 2,350 ML IV ONE (23:00)
[2025-03-14] MEDS ORDERED: CEFEPIME 1GM/50ML D5W or NS KIT IV ONE (23:15)
--- NOTE | 2025-03-15 00:15 | DVH ---
CHEST RADIOGRAPH Indication: sepsis Technique: Single frontal view of the chest was obtained COMPARISON: XY CHEST PORTABLE on DOS: 01/12/25, XY CHEST PORTABLE on DOS: 01/10/25, XY CHEST PORTABLE on DOS: 12/19/24, XY CHEST PORTABLE on DOS: 12/16/24, XY CHEST XRAY 1 VIEW on DOS: 12/15/24 FINDINGS: Cardiac silhouette is enlarged. Mild diffuse prominence of the pulmonary vasculature. Slight prominence of the interstitium. Moderate right-sided pleural effusion with dense atelectasis/ consolidation throughout the right mid and lower lung. IMPRESSION: Moderate right-sided pleural effusion with dense atelectasis / consolidation throughout the right mid and lower lung. This could represent a pneumonia in the setting of sepsis. Cardiomegaly with mild pulmonary edema.
[2025-03-15 00:18] LABS: Alanine Aminotransferase 25 U/L (7-40); Albumin 3.8 g/dL (3.2-4.8); Anion Gap 8 (5-15); BUN/Creatinine Ratio 20.7 (10.0-20.0); Carbon Dioxide 27 mmol/L (20-31); Glucose 102 mg/dL (74-106); Potassium 3.9 mmol/L (3.5-5.1); Total Protein 6.4 g/dL (5.7-8.2)
[2025-03-15 00:21] LABS: Mean Corpuscular Volume 75.6 fL (80.0-100.0); Nucleated Red Blood Cells % 0.0 %
[2025-03-15 00:22] LABS: Hematocrit 37.0 % (41.0-53.0); Hemoglobin 11.7 g/dL (13.5-17.5); Mean Corpuscular Hemoglobin 23.8 pg (28.0-32.0)
[2025-03-15 00:27] LABS: Alkaline Phosphatase 296 U/L (46-116); Bilirubin, Total 3.9 mg/dL (0.2-1.0); Blood Urea Nitrogen 31 mg/dL (9-23); Calcium 8.6 mg/dL (8.7-10.4); Chloride 95 mmol/L (98-107); Sodium 130 mmol/L (136-145)
[2025-03-15 00:45] LABS: INR 1.79 (0.9-1.15); Partial Thromboplastin Time 29.1 SEC (24.5-34.5); Prothrombin Time 17.9 sec (9.3-11.8)
--- NOTE | 2025-03-15 01:08 | ED.PDOC ---
SOB-HPI HPI Comments HPI: 59-year-old male who came to ER due to shortness of breath. Patient states he has been having productive cough for over a year, worsening with shortness of breath and intermittent episodes of fever. Patient has history of CHF and AFib, takes Eliquis and digoxin. 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 REVIEW OF SYSTEMS: CONSTITUTIONAL: Denies acute: diaphoresis, chills, HEAD: Denies acute: headache, photophobia Eyes: Denies acute: Double vision, vision loss, eye pain, eye discharge. EARS: Denies acute: tinnitus, hearing loss, ear discharge, ear pain, THROAT: Denies acute: sore throat, swelling, difficulty swallowing , pain with swallowing, change in voice. NECK: Denies acute: neck pain, neck swelling, stiff neck. HEART: Denies acute : chest pain, palpitations, LUNGS: Denies acute: wheezing, hemoptysis ABDOMEN: Denies acute: abdominal pain, Nausea, Vomiting, diarrhea, melena , hematemesis, hematochezia SKIN: Denies acute: rash, redness, lesions, itchiness. EXTREMITIES: Denies acute: calf pain, numbness, tingling, weakness, denies pain in extremity. Denies acute: Low back pain. Neuro: Denies acute: focal neurological deficit, motor or sensory focal neurological deficit, tremors, seizure like activity, confusion, dizziness, change in mental status, loss of bowel or bladder function, cauda equina like symptoms. : Denies acute: dysuria, hematuria, flank pain, increase in urinary frequency. PSYCH: Denies acute: hallucination, suicidal ideation, homicidal ideation. PHYSICAL EXAM: General: ----moderate----acute distress, awake and alert. Head: normocephalic, atraumatic. No raccoon's eyes, no villavicencio sign. Neck: supple, trachea is midline, no swelling. Throat: Normal phonation. Eyes:, no erythema, no purulent discharge, no proptosis, no icterus. Heart: regular rate, regular rhythm, no significant murmur appreciated. Lungs: no apparent respiratory distress, Able to speak in full sentences. No wheezing, no rhonchi, no crackles. No stridors Clear to auscultation bilaterally. Abdomen: non tender to palpation, non distended, soft, no guarding, no rebound, + bowel sounds. Neuro: Awake, Alert, oriented to name, self, situation, follows commands GCS=15. Speech is normal. Skin: no petechia, no purpura, no cyanosis, non-pale, not jaundice. Lower extremities: --no - Pitting edema no deformity, no focal swelling, no calf TTP. Makes eye contact. moves all four extremities. Face: no apparent facial droop. ED COURSE: DISCLAIMER: This medical document was created using an electronic medical record system with voice recognition software and computerized dictation system. Although this document has been carefully reviewed, there might still be some phonetic and typographical errors. Occasional wrong-word or "sound-alike" substitutions may have occurred due to the inherent limitations of voice recognition software. These areas are purely typographical due to imperfections of the software programs and do not reflect any compromise in the patient's medical care. Please read the chart carefully and recognize, using context, where these substitutions have occurred. Chief Complaint: Shortness of Breath Time Seen by MD: 01:00 Primary Care Provider: Dr. Matson Reviewed notes: Nurses Notes, Allergies Information Source: Patient Mode of Arrival: Wheelchair Past Medical History PAST MEDICAL HISTORY: AFIB, CHF, High Lipids, HTN Surgical History: Hernia Repair Family History Family History: Reviewed,noncontributory to illness Social History Smoker: Cigarettes, Less Than 1 Pack/Day Alcohol: Occasionally Drugs: Methamphetamine Lives In: Home X-Ray, Labs, Meds, VS Vital Signs Date Time Temp Pulse Resp B/P (MAP) Pulse Ox O2 Delivery O2 Flow Rate FiO2 03/14/25 22:49 101.5 125 20 109/75 95 101.5 Lab Test 03/15/25 01:22 03/14/25 23:48 Range/Units Troponin I High Sensitivity Pending 61 *H </=54 ng/L White Blood Count 12.1 H 4.4-10.8 10^3/uL Red Blood Count 4.89 4.5-5.90 10^6/uL Hemoglobin 11.7 L 13.5-17.5 g/dL Hematocrit 37.0 L 41.0-53.0 % Mean Corpuscular Volume 75.6 L 80.0-100.0 fL Mean Corpuscular Hemoglobin 23.8 L 28.0-32.0 pg Mean Corpuscular Hemoglobin Concent 31.5 L 32.0-36.0 g/dL Red Cell Distribution Width 20.9 H 11.8-14.3 % Platelet Count 306 140-450 10^3/uL Mean Platelet Volume 8.0 6.9-10.8 fL Neutrophils (%) (Auto) 78.8 37.0-80.0 % Lymphocytes (%) (Auto) 5.9 L 10.0-50.0 % Monocytes (%) (Auto) 14.5 H 0.0-12.0 % Eosinophils (%) (Auto) 0.1 0.0-7.0 % Basophils (%) (Auto) 0.7 0.0-2.0 % Neutrophils # (Auto) 9.5 H 1.6-8.6 10 ^3/uL Lymphocytes # (Auto) 0.7 0.4-5.4 10 ^3/uL Monocytes # (Auto) 1.7 H 0-1.3 10 ^3/uL Eosinophils # (Auto) 0 0-0.8 10 ^3/uL Basophils # (Auto) 0.1 0-0.2 10 ^3/uL Nucleated Red Blood Cells 0.0 % Platelet Estimate Pending Prothrombin Time 17.9 H 9.3-11.8 sec Prothrombin Time INR 1.79 H 0.9-1.15 Activated Partial Thromboplast Time 29.1 24.5-34.5 SEC Sodium Level 130 L 136-145 mmol/L Potassium Level 3.9 3.5-5.1 mmol/L Chloride Level 95 L 98-107 mmol/L Carbon Dioxide Level 27 20-31 mmol/L Anion Gap 8 5-15 Blood Urea Nitrogen 31 H 9-23 mg/dL Creatinine 1.50 H 0.700-1.30 mg/dL Glomerular Filtration Rate Calc 54 >90 mL/min BUN/Creatinine Ratio 20.7 H 10.0-20.0 Serum Glucose 102 74-106 mg/dL Lactic Acid Level 1.6 0.4-2.0 mmol/L Calcium Level 8.6 L 8.7-10.4 mg/dL Total Bilirubin 3.9 H 0.2-1.0 mg/dL Aspartate Amino Transferase (AST) 41 H 13-40 U/L Alanine Aminotransferase (ALT) 25 7-40 U/L Alkaline Phosphatase 296 H 46-116 U/L B-Type Natriuretic Peptide 3503.01 0-100 pg/mL Total Protein 6.4 5.7-8.2 g/dL Albumin 3.8 3.2-4.8 g/dL SEPSIS Sepsis Screen Date sepsis recognized/suspect: Mar 14, 2025 Time Sepsis recognized/suspect: 2251 Recent Procedure: No On Antibiotic Therapy: No Respiratory Rate >20: No Heart Rate >90: Yes Temp<36 C (96.8 F) or >38.3 C: Yes SBP <90 or MAP <65 mmHG: No New Acute Mental Status Change: No Is the patient on CPAP, BIPAP,: No Physician Orders Complete Blood Count (03/14/25 23:00) Urinalysis (03/14/25 23:00) Chest Portable (03/14/25 23:00) Accucheck (03/14/25 23:00) Blood Culture (03/14/25 23:00) Cefepime 1gm/50ml (Maxipime 1gm/50ml) (03/15/25 06:00) Notify Md If Map <65 Or Bp<90 (03/14/25 23:00) If Map<65 Start Vasopressor (03/14/25 23:00) Sepsis Reassesment After Fluid (03/15/25 00:00) Covid19 Antigen Cindy (03/14/25 ) Rapid Influenza A&B (03/14/25 23:00) Electrocardigram (03/14/25 23:00) Troponin-I Hs (03/15/25 00:00) Troponin-I Hs (03/15/25 02:00) Rbc Morphology (03/14/25 23:48) Vital Signs Date Time Temp Pulse Resp B/P (MAP) Pulse Ox O2 Delivery O2 Flow Rate FiO2 11/8/25 22:49 101.5 125 20 109/75 95 101.5 Laboratory Tests Test 03/14/25 23:48 Lactic Acid Level 1.6 mmol/L (0.4-2.0) White Blood Count 12.1 10^3/uL (4.4-10.8) H Departure 1 Departure Time of Disposition: 01:07 Impression: Primary Impression: CHF exacerbation Additional Impressions: Elevated troponin Pneumonia Pleural effusion Sepsis Disposition: ADMITTED INPATIENT Admit to: [facility] Condition: Guarded Discharged With: Self I personally scribed for ARTIE VIEIRA DO ([email or web address]) on 03/15/25 at 01:26. Electron[facility] I personally scribed for ARTIE VIEIRA DO ([email or web address]) on 03/15/25 at 01:33. Electronically submitted by [facility] Butt [facility] I personally scribed for ARTIE VIEIRA DO ([email or web address]) on 03/15/25 at 01:35. Electronically submitted by Richi Butt [facility] ARTIE VIEIRA DO Mar 15, 2025 01:08
[2025-03-15] MEDS ORDERED: FUROSEMIDE 100 MG/10ML VIAL IV ONE (01:15)
[2025-03-15] MEDS ORDERED: CEFEPIME 1GM/50ML 50 ML IV SCH (06:00)
[2025-03-15 07:48] LABS: Anisocytosis Slight
== END 2025-03-15 02:39 | disposition left against medical advice (07) ==
LOC: ER 22:48
DX: A41.9 Sepsis, unspecified organism (principal); I13.0 Hypertensive heart and chronic kidney disease with heart failure and stage 1 through stage 4 chronic kidney disease, or unspecified chronic kidney disease; I50.9 Heart failure, unspecified; R79.89 Other specified abnormal findings of blood chemistry; J18.9 Pneumonia, unspecified organism; J90 Pleural effusion, not elsewhere classified; Z79.899 Other long term (current) drug therapy
CPT/HCPCS: 36415; 71045; 80053; 83605; 83880; 84484; 85025; 85610; 85730; 87040; 87077; 87147; 87186

== ENCOUNTER 2025-03-18 13:10 | Inpatient (IN) | payer MEDICAID ==
[~2025-03-18] VITALS: Ht 180.3 cm; Wt 73.2 kg
--- NOTE | 2025-03-18 13:48 | ED.PDOC ---
SOB-HPI HPI Comments This is a 59 year old male AMANDAA presenting to the ED with chief complaint of SOB. Patient reports that he has been experiencing worsening SOB with associated generalized weakness, abdominal pain, and distention for the past few days. Patient relays that he has history of CHF due to a cardiac arrest caused by metoprolol given to him at [facility]. Patient notes recent methamphetamine use in an attempt to relieve his SOB. Patient denies any N/V/D, chest pain, dizziness, headache, numbness, weakness, fever, or chills. Chief Complaint: Shortness of Breath Time Seen by MD: 13:43 Primary Care Provider: Dr. Matson Reviewed notes: Nurses Notes, Bilingual Case Manager Notes, Medications, Allergies Information Source: Patient, Emergency Med Personnel Mode of Arrival: EMS Severity: Moderate Timing: Days Duration: Since onset Context: At Rest PE Risk Factors: None History of: CHF Past Medical History PAST MEDICAL HISTORY: AFIB, CHF, CKF, High Lipids, HTN Surgical History: Hernia Repair Family History Family History: Reviewed,noncontributory to illness Social History Smoker: Cigarettes, Less Than 1 Pack/Day Alcohol: Occasionally Drugs: Methamphetamine Lives In: Home Constitutional: reports: weakness; denies: chills, diaphoresis, fatigue, fever, malaise, sweats, others EENTM: denies: blurred vision, double vision, ear bleeding, ear discharge, ear drainage, ear pain, ear ringing, eye pain, eye redness, hearing loss, mouth pain, mouth swelling, nasal discharge, nose bleeding, nose congestion, nose pain, photophobia, tearing, throat pain, throat swelling, voice changes, others Respiratory: reports: shortness of breath; denies: cough, hemoptysis, orthopnea, SOB at rest, SOB with excertion, stridor, wheezing, others Cardiovascular: denies: chest pain, dizzy spells, diaphoresis, Dyspnea on exertion, edema, irregular heart beat, left arm pain, lightheadedness, palpitations, PND, syncope, others Gastrointestinal: reports: abdomen distended, abdominal pain; denies: blood streaked bowels, constipated, diarrhea, dysphagia, difficulty swallowing, hematemesis, melena, nausea, poor appetite, poor fluid intake, rectal bleeding, rectal pain, vomiting, others Genitourinary: denies: burning, dysuria, flank pain, frequency, hematuria, incontinence, penile discharge, penile sore, pain, testicle pain, testicle swelling, urgency, others Neurological: denies: dizziness, fainting, headache, left sided numbness, left sided weakness, numbness, paresthesia, pre-existing deficit, right sided numbness, right sided weakness, seizure, speech problems, tingling, tremors, weakness, others Musculoskeletal: denies: back pain, gout, joint pain, joint swelling, muscle pain, muscle stiffness, neck pain, others Integumetry: denies: bruises, change in color, change in hair/nails, dryness, laceration, lesions, lumps, rash, wounds, others Allergic/Immunocompromised: denies: Difficulty Healing, Frequent Infections, Hives, Itching, others Hematologic/Lymphatic: denies: anemia, blood clots, easy bleeding, easy bruis ing, swollen glands, others Endocrine: denies: excessive hunger, excessive sweating, excessive thirst, exc essive urination, flushing, intolerance to cold, intolerance to heat, unexplained weight gain, unexplained weight loss, others Psychiatric: denies: anxiety, bipolar disorder, depression, hopeless, panic disorder, schizophrenia, sleepless, suicidal, others All Other Systems: Reviewed and Negative Physical Exam General Appearance: Moderate Distress, Obese HEENT: Normal ENT Inspection, PERRL/EOMI, Pharynx Normal, TMs Normal Neck: Full Range of Motion, Non-Tender, Normal, Normal Inspection Respiratory: Chest Non-Tender, Crackles, Decreased Breath Sounds, Expiration, Inspiration, No Accessory Muscle Use, No Respiratory Distress, Rhonchi Cardiovascular: No Edema, No JVD, No Murmur, No Gallop, Normal Peripheral Pulses, Tachycardia Breast Exam: Deferred Gastrointestinal: Hepatomegaly, Non Tender, No Pulsatile Mass, Normal Bowel Sounds, Soft Genitalia: Deferred Pelvic: Deferred Rectal: Deferred Extremities: No calf tenderness, Normal capillary refill, Normal inspection, Normal range of motion, Non-tender, No pedal edema Musculoskeletal : Apperance: Normal Neurologic: Alert, 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 Was a procedure done?: No Differential Dx Differential Diagnosis: CHF, Dysrhythmia, Hyponatremia, Myocardial infarction, Pneumonia, Pulmonary Embolism, Respiratory Distress X-Ray, Labs, Meds, VS Vital Signs Date Time Temp Pulse Resp B/P (MAP) Pulse Ox O2 Delivery O2 Flow Rate FiO2 03/18/25 14:30 141 03/18/25 14:00 158 27 77/57 (64) 91 03/18/25 13:29 100.0 130 19 93/54 94 100.0 Lab Test 03/18/25 15:30 03/18/25 13:45 Range/Units Lactic Acid Level 5.0 *H 0.4-2.0 mmol/L White Blood Count 19.2 #H 4.4-10.8 10^3/uL Red Blood Count 4.71 4.5-5.90 10^6/uL Hemoglobin 11.1 L 13.5-17.5 g/dL Hematocrit 35.8 L 41.0-53.0 % Mean Corpuscular Volume 76.1 L 80.0-100.0 fL Mean Corpuscular Hemoglobin 23.7 L 28.0-32.0 pg Mean Corpuscular Hemoglobin Concent 31.1 L 32.0-36.0 g/dL Red Cell Distribution Width 21.5 H 11.8-14.3 % Platelet Count 225 140-450 10^3/uL Mean Platelet Volume 9.5 6.9-10.8 fL Neutrophils (%) (Auto) 37.0-80.0 % Lymphocytes (%) (Auto) 10.0-50.0 % Monocytes (%) (Auto) 0.0-12.0 % Basophils (%) (Auto) 0.0-2.0 % Neutrophils # (Auto) 1.6-8.6 10 ^3/uL Lymphocytes # (Auto) 0.4-5.4 10 ^3/uL Monocytes # (Auto) 0-1.3 10 ^3/uL Differential Total Cells Counted 100.0 100 Neutrophils % (Manual) 79 37.0-80.0 Band Neutrophils % (Manual) 3 Lymphocytes % (Manual) 8 L 10.0-50.0 Monocytes % (Manual) 9 0-12 Eosinophils % (Manual) 1 0-7 Basophils % (Manual) 0 0.0-2.0 Metamyelocytes % (manual) 0 Myelocytes % (Manual) 0 Promyelocytes % (Manual) 0 Blast Cells % (Manual) 0 Reactive Lymphocytes 0 Platelet Estimate Adequate Hypochromasia (manual) Slight Anisocytosis (manual) Slight Microcytosis Slight Prothrombin Time 25.1 H 9.3-11.8 sec Prothrombin Time INR 2.60 H 0.9-1.15 Activated Partial Thromboplast Time 38.4 H 24.5-34.5 SEC D-Dimer, Quantitative 24.58 H 0.0-0.49 mg/L FEU Sodium Level 121 #L 136-145 mmol/L Potassium Level 5.2 H 3.5-5.1 mmol/L Chloride Level 85 #L 98-107 mmol/L Carbon Dioxide Level 16 #L 20-31 mmol/L Anion Gap 20 H 5-15 Blood Urea Nitrogen 68 H 9-23 mg/dL Creatinine 2.96 H 0.700-1.30 mg/dL Glomerular Filtration Rate Calc 24 >90 mL/min BUN/Creatinine Ratio 23.0 H 10.0-20.0 Serum Glucose 69 L 74-106 mg/dL Calcium Level 8.3 L 8.7-10.4 mg/dL Magnesium Level 2.2 1.6-2.6 mg/dL Total Bilirubin 6.8 H 0.2-1.0 mg/dL Aspartate Amino Transferase (AST) 129 H 13-40 U/L Alanine Aminotransferase (ALT) 45 H 7-40 U/L Alkaline Phosphatase 198 H 46-116 U/L Troponin I High Sensitivity 213 *H </=54 ng/L B-Type Natriuretic Peptide 3471.13 0-100 pg/mL Total Protein 5.4 L 5.7-8.2 g/dL Albumin 3.2 3.2-4.8 g/dL Thyroid Stimulating Hormone (TSH) 4.95 H 0.55-4.78 uIU/mL Digoxin Level 0.35 L 0.8-2 ng/mL Current Medications Medications (Trade) Dose Ordered Sig/Zainab Route Start Time Stop Time Status Last Admin Sodium Chloride 1,000 ml @ 150 mls/hr Q6H40M ONCE IV 03/18/25 13:45 03/18/25 20:24 03/18/25 14:02 [place] [address] Ph: [phone] DIAGNOSTIC IMAGING Diagnostic Imaging Report : [id number] Signed PATIENT: CARMEN BERNALACCT: [id number] UNIT: [id number] : 1965 LOC: ER ROOM / BED: / AGE / SEX: 59 / M ADM STATUS: REG ER SERVICE 1344 ORDERING PHYSICIAN: JESUS OROSCO MD PROCEDURE(s): CXRP - CHEST PORTABLE REASON: Shortness of breath ORDER NUMBER(s): [id number], ACCESSION NUMBER(s): [id number] EXAM: XY CHEST PORTABLE Indication: Shortness of breath Technique: Single frontal view of the chest was obtained Comparison: XY CHEST PORTABLE on DOS: 03/14/25, XY CHEST PORTABLE on DOS: 01/12/25, XY CHEST PORTABLE on DOS: 01/10/25, XY CHEST PORTABLE on DOS: 12/19/24, XY CHEST PORTABLE on DOS: 12/16/24 FINDINGS: Lines and Tubes: None Lungs: Moderate right pleural effusion with right basilar opacity. No pneumothorax. Cardiomediastinal contours: Cardiomeglay. Bones: No acute osseous abnormality. IMPRESSION: Cardiomeglay.Moderate right pleural effusion with right basilar opacity. ATED BY: SIOMARA CARVALHO MD DICTATED DATE/TIME: 03/18/251423 SIGNED BY: SIOMARA CARVALHO MD SIGNED DATE/TIME: 03/18/251423 CC: X-Ray, Labs, Meds, VS Comment Course in the emergency department eventful patient came in with a severe shortness of breath and generalized weakness patient was admitted at [facility] where he had a cardiac arrest and was discharged with CHF Patient came today because of severe shortness of breath and exhaustion CBC [id number] with 79% neutrophils H&H 11 and 35 with microcytosis Digoxin 0.35 D-dimer severely elevated at 24.58 INR 2.6 0 TSH 4.95 Troponin 213 BNP 3471.13 Liver enzymes elevated Bilirubin elevated 6.8 Magnesium 2.2 Sodium 121 Potassium 5.2 Chloride 85 CO2 16 GFR of 24 Blood sugar 69 chest x-ray shows right pleural effusion with a right basilar opacity Patient will be admitted for further care to ICU Images Reviewed?: Images reviewed and evaluated by me Time of 1ST Reevaluation: 14:42 Reevaluation 1ST: Unchanged Patient Education/Counseling: Diagnosis, Treatment, Prognosis Family Education/Counseling: Diagnosis, Treatment, Prognosis, No Family Present SEPSIS Sepsis Screen Date sepsis recognized/suspect: Mar 18, 2025 Time Sepsis recognized/suspect: 1318 Recent Procedure: No On Antibiotic Therapy: No Respiratory Rate >20: No Heart Rate >90: No Temp<36 C (96.8 F) or >38.3 C: No SBP <90 or MAP <65 mmHG: No New Acute Mental Status Change: No Is the patient on CPAP, BIPAP,: No Physician Orders Chest Portable (03/18/25 13:44) Heplock Iv (03/18/25 13:44) Veterinary Dentist (03/18/25 13:44) Blood Pressure (03/18/25 13:44) Oxygen (03/18/25 13:44) Pulse Oximetry (03/18/25 13:44) Sodium Chloride 0.9% (03/18/25 13:45) Urinalysis (03/18/25 13:44) Electrocardigram (03/18/25 13:44) Nm Vq Scan (03/18/25 14:56) Ceftriaxone Ivpb Rocephin (03/18/25 16:30) Vital Signs Date Time Temp Pulse Resp B/P (MAP) Pulse Ox O2 Delivery O2 Flow Rate FiO2 03/18/25 14:30 141 03/18/25 14:00 158 27 77/57 (64) 91 03/18/25 13:29 100.0 130 19 93/54 94 100.0 Laboratory Tests Test 03/18/25 13:45 03/18/25 15:30 White Blood Count 19.2 10^3/uL (4.4-10.8) #H Lactic Acid Level 5.0 mmol/L (0.4-2.0) *H Medications Medications Dose Ordered Sig/Zainab Route Start Time Stop Time Status Last Admin Dose Admin Sodium Chloride 1,000 ml @ 150 mls/hr Q6H40M ONCE IV 03/18/25 13:45 03/18/25 20:24 03/18/25 14:02 Departure 1 Departure Time of Disposition: 15:04 Impression: Primary Impression: Acute chest pain Additional Impressions: CHF exacerbation CKD (chronic kidney disease) stage 4, GFR 15-29 ml/min Dehydration with hyponatremia Uncontrolled atrial fibrillation Hypothyroidism Elevated troponin Elevated d-dimer Hyperkalemia Disposition: ADMITTED INPATIENT Admit to: ICU Condition: Critical Critical Care Note Critical Care Time?: Yes (45 min-critical care time only) Stability Stability form required: Yes Heart Score Heart Score: Heart Score Response (Comments) Value History Highly Suspicious 2 EKG Repolarization Disturb 1 Age 45-64 1 Risk Factors >3 or Hx ASHD 2 Troponin >3 x's Normal limit 2 Total 8 I personally scribed for JESUS OROSCO MD ([email or web address]) on 03/18/25 at 13:48. Electronically submitted by Jamir Shore ([email or web address]). I personally scribed for JESUS OROSCO MD ([email or web address]) on 03/18/25 at 14:32. Electronically submitted by Jamir Shore ([email or web address]). JESUS OROSCO MD Mar 18, 2025 13:48
[2025-03-18 14:00] VITALS: PULSE 158; RESP 27; O2SAT 91
[2025-03-18] MEDS: SODIUM CHLORIDE 0.9% 1,000 ML IV ONE (14:02)
[2025-03-18 14:05] LABS: Hematocrit 35.8 % (41.0-53.0); Hemoglobin 11.1 g/dL (13.5-17.5); Mean Corpuscular Hemoglobin 23.7 pg (28.0-32.0); Mean Corpuscular Volume 76.1 fL (80.0-100.0)
[2025-03-18 14:18] LABS: Anion Gap 20 (5-15); BUN/Creatinine Ratio 23.0 (10.0-20.0); Magnesium 2.2 mg/dL (1.6-2.6)
[2025-03-18 14:19] LABS: Alanine Aminotransferase 45 U/L (7-40); Albumin 3.2 g/dL (3.2-4.8); Alkaline Phosphatase 198 U/L (46-116); Bilirubin, Total 6.8 mg/dL (0.2-1.0); Blood Urea Nitrogen 68 mg/dL (9-23); Calcium 8.3 mg/dL (8.7-10.4); Carbon Dioxide 16 mmol/L (20-31); Chloride 85 mmol/L (98-107); Glucose 69 mg/dL (74-106); Potassium 5.2 mmol/L (3.5-5.1); Sodium 121 mmol/L (136-145); Total Protein 5.4 g/dL (5.7-8.2)
[2025-03-18 14:21] LABS: Anisocytosis Slight; Total Cells Counted 100.0 (100)
[2025-03-18 14:23] LABS: INR 2.6 (0.9-1.15); Partial Thromboplastin Time 38.4 SEC (24.5-34.5); Prothrombin Time 25.1 sec (9.3-11.8)
--- NOTE | 2025-03-18 14:26 | DVH ---
EXAM: XY CHEST PORTABLE Indication: Shortness of breath Technique: Single frontal view of the chest was obtained Comparison: XY CHEST PORTABLE on DOS: 03/14/25, XY CHEST PORTABLE on DOS: 01/12/25, XY CHEST PORTABLE on DOS: 01/10/25, XY CHEST PORTABLE on DOS: 12/19/24, XY CHEST PORTABLE on DOS: 12/16/24 FINDINGS: Lines and Tubes: None Lungs: Moderate right pleural effusion with right basilar opacity. No pneumothorax. Cardiomediastinal contours: Cardiomeglay. Bones: No acute osseous abnormality. IMPRESSION: Cardiomeglay.Moderate right pleural effusion with right basilar opacity.
[2025-03-18 16:27] LABS: Lactic Acid w/Reflex 5.0 mmol/L (0.4-2.0)
[2025-03-18] MEDS: DIGOXIN (250MCG/ML) 2 ML AMPULE IV ONE ×2 (17:10→22:50)
--- NOTE | 2025-03-18 18:37 | DVH ---
NUCLEAR MEDICINE VENTILATION/PERFUSION LUNG SCAN. INDICATION: PULMONARY EMBOLISM COMPARISON: None TECHNIQUE: Following intravenous demonstration of 4.5 millicuries of technetium 99m MAA. Ventilation study could not be performed with the patient because of uncontrollable coughing.. FINDINGS: There is normal uptake of radionuclide on both the ventilation and perfusion portions of the examination. No mismatched perfusion defects are demonstrated. Uptake is normally homogeneous. IMPRESSION: 1. Low probability for PE on the perfusion study alone.
[2025-03-18] MEDS ORDERED: ACETAMINOPHEN 325 MG TAB PO PRN (19:15)
[2025-03-18] MEDS ORDERED: NITROGLYCERIN 0.4 MG SL TAB SL PRN (19:15)
[2025-03-18] MEDS ORDERED: ONDANSETRON HCL 4 MG/2 ML VIAL IV PRN (19:15)
[2025-03-18] MEDS ORDERED: MORPHINE SULFATE INJ 2 MG/ml SYRG IV PRN (19:15)
[2025-03-18 20:22] VITALS: PULSE 130; RESP 20; O2SAT 97
[2025-03-18] MEDS: ATORVASTATIN 20 MG TAB PO SCH (21:23)
[2025-03-18] MEDS: APIXABAN 5 MG TAB PO SCH (21:23)
[2025-03-18] MEDS: CARVEDILOL 3.125 MG TAB PO SCH (21:24)
[2025-03-18] MEDS: HYDROcodone-ACET 5/325MG TAB PO PRN (22:50)
[2025-03-19] VITALS (22 sets, daily range): BP systolic 95–124; BP diastolic 56–97; PULSE 53–137; RESP 17–62; TEMP 97.5; O2SAT 65–100
[2025-03-19] MEDS: PHENYLEPHRINE IV 250 ML IV SCH (00:30)
[2025-03-19] MEDS: KETOROLAC TROMETH 30 MG/ML 1ML VIAL IV ONE (01:47)
[2025-03-19] MEDS: NOREPINEPHRINE 8 MG/250ML KIT 250 ML IV SCH (04:10)
--- NOTE | 2025-03-19 04:21 | DVHHP2 ---
History of Present Illness Reason for Visit: Shortness for breath History of Present Illness 59-year-old male presents for evaluation of shortness for breath. Patient reports a two day history of worsening shortness for breath with generalized weakness and chest pressure. Denies nausea or vomiting. No headache. Patient noted to be in AFib with RVR. Past Medical History Chronic kidney disease, CHF, AFib, dyslipidemia, hypertension Past Surgical History Hernia repair Family History Noncontributory Smoke: <1 pack per day ALCOHOL: occassional Drugs: Other (Methamphetamine) Review of Systems Review of Systems Review of systems are currently negative otherwise addressed in HPI. Allergies: Coded Allergies: Amiodarone (Verified Allergy, Unknown, 08/16/23) Metoprolol (Verified Allergy, Unknown, rapid decrease in blood pressure, 02/13/24) Penicillins (Verified Allergy, Unknown, 06/09/23) Medications Current Medications Medications Dose Ordered Sig/Zainab Route Start Time Stop Time Status Last Admin Dose Admin Furosemide 20 mg BIDD IV 03/19/25 06:00 Aspirin 162 mg DAILY PO 03/19/25 10:00 Carvedilol 3.125 mg Q12HR PO 03/18/25 22:00 Hold 03/18/25 21:24 3.125 MG Apixaban 5 mg BID PO 03/18/25 22:00 03/18/25 21:23 5 MG Spironolactone 25 mg DAILY PO 03/19/25 10:00 Atorvastatin Calcium 40 mg HS PO 03/18/25 22:00 03/18/25 21:23 40 MG Sacubitril/ Valsartan 1 tab BID PO 03/19/25 10:00 Digoxin 0.125 mg DAILY PO 03/19/25 10:00 Ceftriaxone Sodium 50 ml @ 100 mls/hr DAILY@09 IV 03/19/25 09:00 Acetaminophen/ Hydrocodone Bitart 1 tab Q4HP PRN PO 03/18/25 19:15 03/18/25 22:50 1 TAB Ondansetron HCl 4 mg Q4HP PRN IV 03/18/25 19:15 Acetaminophen 650 mg Q6HP PRN PO 03/18/25 19:15 Nitroglycerin 0.4 mg Q5MINP PRN SL 03/18/25 19:15 Morphine Sulfate 2 mg Q30M PRN IV 03/18/25 19:15 Phenylephrine HCl 250 ml @ 30 mls/hr Q8H20M IV 03/19/25 00:15 03/19/25 00:30 30 MLS/HR Norepinephrine Bitartrate 250 ml @ 3.75 mls/hr Q24H IV 03/19/25 04:00 03/19/25 04:10 3.75 MLS/HR Exam Vital Signs Vital Signs Date Time Temp Pulse Resp B/P (MAP) Pulse Ox O2 Delivery O2 Flow Rate FiO2 03/19/25 04:10 85/43 03/19/25 04:00 102 17 98 03/18/25 20:22 Room Air* 0 21 03/18/25 19:30 97.9 97.9 Exam Gen: 59-year-old male in mild distress Skin: Warm, dry, normal color and texture, no rash. HEENT: Normocephalic atraumatic, mucous membranes moist and pink. Neck: Cervical and supraclavicular nodes normal without enlargement, trachea is midline, thyroid gland is normal without masses. Pulmonary: Clear to auscultation and percussion bilaterally. Cardiac: Irregular rhythm Abdomen: Soft, nontender, nondistended, bowel sounds present all 4 quadrants, no guarding, no rigidity, no organomegaly. Extremities: No cyanosis, clubbing, no edema Neuro: Cranial nerves II through XII grossly intact, normal affect and speech, no focal motor deficits. Labs/Xrays ORDERING PHYSICIAN: JESUS OROSCO MD PROCEDURE(s): VQ - NM VQ SCAN REASON: PULMONARY EMBOLISM ORDER NUMBER(s): [id number], ACCESSION NUMBER(s): [id number] NUCLEAR MEDICINE VENTILATION/PERFUSION LUNG SCAN. INDICATION: PULMONARY EMBOLISM COMPARISON: None TECHNIQUE: Following intravenous demonstration of 4.5 millicuries of technetium 99m MAA. Ventilation study could not be performed with the patient because of uncontrollable coughing.. FINDINGS: There is normal uptake of radionuclide on both the ventilation and perfusion portions of the examination. No mismatched perfusion defects are demonstrated. Uptake is normally homogeneous. IMPRESSION: 1. Low probability for PE on the perfusion study alone. Labs Test 03/18/25 17:17 03/18/25 15:30 03/18/25 13:45 Range/Units Lactic Acid Level 4.1 *H 0.4-2.0 mmol/L White Blood Count 19.2 #H 4.4-10.8 10^3/uL Red Blood Count 4.71 4.5-5.90 10^6/uL Hemoglobin 11.1 L 13.5-17.5 g/dL Hematocrit 35.8 L 41.0-53.0 % Mean Corpuscular Volume 76.1 L 80.0-100.0 fL Mean Corpuscular Hemoglobin 23.7 L 28.0-32.0 pg Mean Corpuscular Hemoglobin Concent 31.1 L 32.0-36.0 g/dL Red Cell Distribution Width 21.5 H 11.8-14.3 % Platelet Count 225 140-450 10^3/uL Mean Platelet Volume 9.5 6.9-10.8 fL Neutrophils (%) (Auto) 37.0-80.0 % Lymphocytes (%) (Auto) 10.0-50.0 % Monocytes (%) (Auto) 0.0-12.0 % Basophils (%) (Auto) 0.0-2.0 % Neutrophils # (Auto) 1.6-8.6 10 ^3/uL Lymphocytes # (Auto) 0.4-5.4 10 ^3/uL Monocytes # (Auto) 0-1.3 10 ^3/uL Differential Total Cells Counted 100.0 100 Neutrophils % (Manual) 79 37.0-80.0 Band Neutrophils % (Manual) 3 Lymphocytes % (Manual) 8 L 10.0-50.0 Monocytes % (Manual) 9 0-12 Eosinophils % (Manual) 1 0-7 Basophils % (Manual) 0 0.0-2.0 Metamyelocytes % (manual) 0 Myelocytes % (Manual) 0 Promyelocytes % (Manual) 0 Blast Cells % (Manual) 0 Reactive Lymphocytes 0 Platelet Estimate Adequate Hypochromasia (manual) Slight Anisocytosis (manual) Slight Microcytosis Slight Prothrombin Time 25.1 H 9.3-11.8 sec Prothrombin Time INR 2.60 H 0.9-1.15 Activated Partial Thromboplast Time 38.4 H 24.5-34.5 SEC D-Dimer, Quantitative 24.58 H 0.0-0.49 mg/L FEU Sodium Level 121 #L 136-145 mmol/L Potassium Level 5.2 H 3.5-5.1 mmol/L Chloride Level 85 #L 98-107 mmol/L Carbon Dioxide Level 16 #L 20-31 mmol/L Anion Gap 20 H 5-15 Blood Urea Nitrogen 68 H 9-23 mg/dL Creatinine 2.96 H 0.700-1.30 mg/dL Glomerular Filtration Rate Calc 24 >90 mL/min BUN/Creatinine Ratio 23.0 H 10.0-20.0 Serum Glucose 69 L 74-106 mg/dL Calcium Level 8.3 L 8.7-10.4 mg/dL Magnesium Level 2.2 1.6-2.6 mg/dL Total Bilirubin 6.8 H 0.2-1.0 mg/dL Aspartate Amino Transferase (AST) 129 H 13-40 U/L Alanine Aminotransferase (ALT) 45 H 7-40 U/L Alkaline Phosphatase 198 H 46-116 U/L Troponin I High Sensitivity 213 *H </=54 ng/L B-Type Natriuretic Peptide 3471.13 0-100 pg/mL Total Protein 5.4 L 5.7-8.2 g/dL Albumin 3.2 3.2-4.8 g/dL Thyroid Stimulating Hormone (TSH) 4.95 H 0.55-4.78 uIU/mL Digoxin Level 0.35 L 0.8-2 ng/mL SEPSIS Sepsis Screen Date sepsis recognized/suspect: Mar 18, 2025 Time Sepsis recognized/suspect: 1949 Recent Procedure: No On Antibiotic Therapy: No Respiratory Rate >20: No Heart Rate >90: Yes Temp<36 C (96.8 F) or >38.3 C: No SBP <90 or MAP <65 mmHG: No New Acute Mental Status Change: No Is the patient on CPAP, BIPAP,: No Physician Orders * Cardiology Consult (03/18/25 22:15) Phenylephrine Iv (Phenylephrine/Ns) (03/19/25 00:15) Transfer Orders (03/19/25 00:31) Norepinephrine 8 Mg/250ml Kit (Levophed) (03/19/25 04:00) Vital Signs Date Time Temp Pulse Resp B/P (MAP) Pulse Ox O2 Delivery O2 Flow Rate FiO2 03/19/25 04:10 85/43 03/19/25 04:00 102 17 73/47 (56) 98 11/13/25 03:50 82/37 03/19/25 03:40 110 17 82/29 (46) 95 03/19/25 03:30 90 30 79/47 (58) 98 03/19/25 03:15 122 32 67/40 (49) 95 03/19/25 03:00 98 26 65/43 (50) 95 03/19/25 02:50 79/53 03/19/25 02:50 114 31 79/53 (62) 96 03/19/25 02:30 78/56 03/19/25 02:30 121 20 78/56 (63) 96 03/19/25 02:20 84/54 03/19/25 02:15 115 30 74/46 (55) 96 03/19/25 02:15 74/46 03/19/25 02:00 129 30 95/51 (66) 96 03/19/25 02:00 95/51 03/19/25 01:45 61/28 03/19/25 01:45 141 28 61/28 (39) 94 03/19/25 01:15 132 34 135/100 (112) 96 03/19/25 00:45 100 29 80/60 (67) 96 03/19/25 00:45 80/60 03/19/25 00:30 83/61 03/19/25 00:30 86 29 83/61 (68) 96 03/19/25 00:00 148 03/18/25 23:40 165 33 119/56 (77) 96 03/18/25 22:50 165 03/18/25 22:26 160 37 105/46 (65) 03/18/25 22:24 160 105/46 03/18/25 22:14 159 03/18/25 22:00 171 28 113/74 (87) 97 03/18/25 21:30 174 37 122/94 (103) 97 03/18/25 21:24 159 122/87 03/18/25 21:00 149 33 113/86 (95) 97 03/18/25 20:30 148 25 97/77 (84) 97 03/18/25 20:22 130 20 97 Room Air* 0 21 Laboratory Tests Test 03/18/25 17:17 Lactic Acid Level 4.1 mmol/L (0.4-2.0) *H Medications Medications Dose Ordered Sig/Zainab Route Start Time Stop Time Status Last Admin Dose Admin Acetaminophen/ Hydrocodone Bitart 1 tab Q4HP PRN PO 03/18/25 19:15 03/18/25 22:50 1 TAB Apixaban 5 mg BID PO 03/18/25 22:00 03/18/25 21:23 5 MG Atorvastatin Calcium 40 mg HS PO 03/18/25 22:00 03/18/25 21:23 40 MG Carvedilol 3.125 mg Q12HR PO 03/18/25 22:00 Hold 03/18/25 21:24 3.125 MG Ceftriaxone Sodium 50 ml @ 100 mls/hr ONCE ONCE IV 03/18/25 16:30 03/18/25 16:59 DC 03/18/25 17:10 100 MLS/HR Digoxin 125 mcg ONCE ONCE IV 03/18/25 16:30 03/18/25 16:31 DC 03/18/25 17:10 125 MCG Digoxin 500 mcg ONCE ONCE IV 03/18/25 22:30 03/18/25 22:43 DC 03/18/25 22:50 500 MCG Ketorolac Tromethamine 15 mg ONCE ONCE IV 03/19/25 01:30 03/19/25 01:31 DC 03/19/25 01:47 15 MG Norepinephrine Bitartrate 250 ml @ 3.75 mls/hr Q24H IV 03/19/25 04:00 03/19/25 04:10 3.75 MLS/HR Phenylephrine HCl 250 ml @ 30 mls/hr Q8H20M IV 03/19/25 00:15 03/19/25 00:30 30 MLS/HR Assessment/Plan Assessment/Plan Assessment Acute on chronic respiratory failure CHF exacerbation AFib with RVR Questionable pneumonia Coagulopathy Chronic kidney disease Plan Admit the patient to ICU to the hospitalist Rocephin/azithromycin Med nebs Cardiology consultation Resume home medications Continue treatment per orders. Plan discussed with: Patient My Orders Orders - RODERICK NEWELL Procedure Category Date Status Time Blood Culture VISH 03/18/25 In Process 19:09 Furosemide Injection PHA 03/19/25 In Process (Lasix Injection) 06:00 Aspirin Tablet PHA 03/19/25 In Process 10:00 Carvedilol Tablet PHA 03/18/25 In Process (Coreg Tablet) 22:00 Apixaban (Eliquis) PHA 03/18/25 In Process 22:00 Spironolactone PHA 03/19/25 In Process (Aldactone) 10:00 Atorvastatin (Lipitor) PHA 03/18/25 In Process 22:00 Digoxin Tablet PHA 03/19/25 In Process (Lanoxin Tablet) 10:00 Ceftriaxone 1gm/50ml PHA 03/19/25 In Process (Rocephin) 09:00 Admit ADMIT 03/18/25 Transmitted 19:09 Renal DIET 03/19/25 Transmitted Standard(2gna,3gk,Lopho) Breakfast Hydrocodone-Acet PHA 03/18/25 In Process 5/325mg Tab ([place] 19:15 Ondansetron Hcl PHA 03/18/25 In Process (Zofran) 19:15 Complete Blood Count LAB 03/19/25 Logged 04:00 Comprehensive LAB 03/19/25 Logged Metabolic Panel 04:00 Cardiac DIET 03/19/25 Transmitted Diet-2gna,Lofat,Lochol Breakfast Condition: Critical MICHAEL 03/18/25 In Process 19:09 Acetaminophen Tablet PHA 03/18/25 In Process (Tylenol Tablet) 19:15 Bedrest With Bathroom MICHAEL 03/18/25 In Process Privileg 19:09 Nitroglycerin PHA 03/18/25 In Process Sublingual (Ntrostat 19:15 Morphine Sulfate PHA 03/18/25 In Process Injection 19:15 Stat Ekg For Chest MICHAEL 03/18/25 In Process Pain 19:09 Notify Md Of Changes [facility] 03/18/25 In Process From Base 19:09 Chief Design Drafter For [facility] 03/18/25 In Process 24 Hours 19:09 Emergency Dysrhythmia MICHAEL 03/18/25 In Process Protocol 19:09 Rhythm Strips Once MICHAEL 03/18/25 In Process Every Shift 19:09 Oxygen By Nasal RT 03/18/25 Transmitted Cannula 19:09 Thyroid Panel LAB 03/18/25 In Process 19:29 Sacubitril-Valsartan PHA 03/19/25 In Process (Entresto 24-26 Mg 10:00 * Cardiology Consult CONS 03/18/25 Transmitted 22:15 Transfer Orders XFER 03/19/25 Transmitted 00:31 Norepinephrine 8 PHA 03/19/25 In Process Mg/250ml Kit 04:00 Date of Service: Mar 18, 2025 Billing Provider: RODERICK NEEWLL Common Visit Codes: [id number] CARE 30-74 MIN RODERICK NEWELL Mar 19, 2025 04:21
[2025-03-19 05:50] LABS: Hematocrit 40.2 % (41.0-53.0); Hemoglobin 12.5 g/dL (13.5-17.5); Mean Corpuscular Hemoglobin 23.5 pg (28.0-32.0); Mean Corpuscular Volume 75.6 fL (80.0-100.0)
[2025-03-19 06:08] LABS: Anion Gap 15 (5-15); BUN/Creatinine Ratio 16.6 (10.0-20.0); Potassium 5.0 mmol/L (3.5-5.1)
[2025-03-19 06:13] LABS: Alanine Aminotransferase 53 U/L (7-40); Albumin 3.0 g/dL (3.2-4.8); Alkaline Phosphatase 223 U/L (46-116); Bilirubin, Total 6.6 mg/dL (0.2-1.0); Blood Urea Nitrogen 49 mg/dL (9-23); Calcium 8.3 mg/dL (8.7-10.4); Carbon Dioxide 20 mmol/L (20-31); Chloride 88 mmol/L (98-107); Glucose 71 mg/dL (74-106); Sodium 123 mmol/L (136-145); Total Protein 5.6 g/dL (5.7-8.2)
[2025-03-19] MEDS: FUROSEMIDE 20 MG/2 ML VIAL IV SCH ×2 (06:31→14:46)
--- NOTE | 2025-03-19 07:10 | ECG ---
[facility] Test Date: 2025-03-18 Test Time: 22:14:03 Pat Name: CARMEN BERNAL Department: ED Room: 0262 Gender: M [employer]: ZEKE : 1965 Requested By: JESUS OROSCO Order Number: [id number] Reading MD: Shad Washington Measurements Intervals [place] Rate: 159 P: 0 HI: 0 QRS: 107 QRSD: 102 T: 72 QT: 299 QTc: 487 Interpretive Statements Atrial fibrillation Right axis deviation Borderline low voltage, extremity leads RSR' in V1 or V2, probably normal variant Probable anterolateral infarct, old Baseline wander in lead(s) I,III,aVL Electronically Signed On 03-20-2025 15:45:39 PST by Shad Washington Please click the below link to view image of tracing.
[2025-03-19 07:17] LABS: Total Cells Counted 100.0 (100)
[2025-03-19] MEDS: LIDOCAINE 1% (LOCAL ANESTH.) PF 5ml SDV ID ONE (08:30)
--- NOTE | 2025-03-19 09:09 | DVH ---
CHEST RADIOGRAPH Indication: S/P PICC LINE PLACEMENT Technique: Single frontal view of the chest was obtained COMPARISON: XY CHEST PORTABLE on DOS: 03/18/25, XY CHEST PORTABLE on DOS: 03/14/25, XY CHEST PORTABLE on DOS: 01/12/25, XY CHEST PORTABLE on DOS: 01/10/25, XY CHEST PORTABLE on DOS: 12/19/24 FINDINGS: Lines and Tubes: Right PICC in satisfactory position. Lungs: Congestion Pleura: Small to moderate right pleural effusion No pneumothorax. Cardiomediastinal contours: Cardiomegaly Bones: Unremarkable IMPRESSION: Unchanged pulmonary edema.
[2025-03-19] MEDS: VASOPRESSIN 20 UNITS in SODIUM CHL 0.9% 99 ML IV SCH (09:15)
[2025-03-19] MEDS: PHENYLEPHRINE IV 250 ML IV ONE (09:22)
[2025-03-19] MEDS ORDERED: DAPTOmycin 0 MG in SODIUM CHL 0.9% 50 ML IV SCH (10:00)
[2025-03-19] MEDS: SODIUM CHLOR 0.9% PF (SALINE LOCK) 10ML VIAL/SYR IV SCH (10:00)
[2025-03-19] MEDS ORDERED: SPIRONOLACTONE 25 MG TAB PO SCH (10:00)
[2025-03-19] MEDS ORDERED: SACUBITRIL-VALSARTAN 24mg/26mg TAB PO SCH (10:00)
[2025-03-19] MEDS ORDERED: MEROPENEM 500MG IVPB 50 ML IV SCH (10:00)
[2025-03-19] MEDS: PHENYLEPHRINE INJ 80 MG in SODIUM CHL 0.9% 242 ML IV SCH (11:05)
[2025-03-19] MEDS: NOREPINEPHRINE BITARTRATE 32 MG in SODIUM CHL 0.9% 218 ML IV SCH (11:05)
[2025-03-19] MEDS: DIGOXIN 0.125 MG TAB PO SCH (11:19)
[2025-03-19] MEDS: HYDROCORTISONE SOD SUCC 100 MG/2ML INJ VIAL IV SCH (11:19)
[2025-03-19] MEDS: AZITHROMYCIN 500MG/250ML 250 ML IV SCH (11:19)
--- NOTE | 2025-03-19 11:46 | DVH ---
INDICATION: elevated bilirubin TECHNIQUE: Multiple real-time sonographic images were obtained of the right upper quadrant. COMPARISON: US ABDOMEN COMPLETE on DOS: 12/20/22 FINDINGS: Liver demonstrates coarsened echotexture with irregular surface contour. The liver measures 15 cm in length. No liver lesions. The main portal vein is patent and demonstrates hepatopetal flow. There is mild ascites throughout the abdomen and pelvis. Bilateral pleural effusions are noted. No biliary ductal dilatation. CBD measures 4.6 mm. No gallstones or gallbladder sludge. There is moderate gallbladder wall thickening, likely related to third spacing. Negative sonographic Bruno's sign. The right kidney measures 9 cm. The right kidney is normal in contour, size, and shape. The echogenicity is normal. There is no hydronephrosis. The pancreas is not well visualized due to overlying bowel gas. IMPRESSION: Cirrhosis Mild ascites Bilateral pleural effusions Moderate gallbladder wall thickening, likely related to third spacing
--- NOTE | 2025-03-19 12:25 | DVHPNRES ---
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 He also reports chills and decreased oral intake. In the ED he was febrile, hypotensive, and tachycardic, and developed an episode of AF with RVR with HR up to 151. He denied syncope, new lower extremity swelling, or focal neurological deficits. Troponin was 213 Past Medical History Chronic kidney disease, CHF, AFib, dyslipidemia, hypertension Past Surgical History Hernia repair Family History Noncontributory Smoke: <1 pack per day ALCOHOL: occassional Drugs: Other (Methamphetamine) He required vasopressor support for hypotension and is currently on phenylephrine and vasopressin. CXR and CT imaging demonstrated a right pleural effusion with right basilar opacity concerning for pneumonia. A V/Q scan was negative for PE. RUQ ultrasound showed cirrhosis with ascites, pleural effusion, and gallbladder wall thickening consistent with third spacing rather than acute cholecystitis. Initial labs revealed WBC 19.2 --> 28.9 with 80% neutrophils, Na 123, Cr 2.96 (baseline ~1.4), elevated lactate, Tbili 6.6, AST 146, ALT 53. Blood cultures resulted positive for gram-positive cocci in clusters. Antibiotics were escalated from ceftriaxone to meropenem and daptomycin due to septic shock with bacteremia. For his arrhythmia, he received a 500 mcg IV digoxin load and we will continued on digoxin PO every other day. He is continued on apixaban. GDMT is held due to hypotension and worsening renal function. He is receiving gentle diuresis with furosemide. Nephrology was consulted for ROBERTO and chronic hyponatremia. A repeat transthoracic echocardiogram was ordered to reassess EF and volume status. The primary driver examiner of his admission is septic shock likely secondary to pneumonia with associated gram-positive bacteremia and ROBERTO. His chronic HFrEF appears stable and is not the primary cause of decompensation. Objective vital signs Vital Sign Date Time Temp Pulse Resp B/P (MAP) Pulse Ox O2 Delivery O2 Flow Rate FiO2 03/19/25 11:19 111 03/19/25 09:50 103/73 03/19/25 07:30 22 93 03/19/25 07:24 Nasal Cannula* 2 28 03/19/25 06:45 97.9 97.9 Total Intake and Output 03/18/25 03/18/25 03/19/25 15:00 23:00 07:00 Intake Total 577.50 ml Balance 577.50 ml medications Current Medications Medications Dose Ordered Sig/Zainab Route Start Time Stop Time Status Last Admin Dose Admin Furosemide 20 mg BIDD IV 03/19/25 06:00 03/19/25 06:31 20 MG Aspirin 162 mg DAILY PO 03/19/25 10:00 03/19/25 11:19 162 MG Apixaban 5 mg BID PO 03/18/25 22:00 03/19/25 11:18 5 MG Atorvastatin Calcium 40 mg HS PO 03/18/25 22:00 03/18/25 21:23 40 MG Acetaminophen/ Hydrocodone Bitart 1 tab Q4HP PRN PO 03/18/25 19:15 03/18/25 22:50 1 TAB Ondansetron HCl 4 mg Q4HP PRN IV 03/18/25 19:15 Acetaminophen 650 mg Q6HP PRN PO 03/18/25 19:15 Nitroglycerin 0.4 mg Q5MINP PRN SL 03/18/25 19:15 Morphine Sulfate 2 mg Q30M PRN IV 03/18/25 19:15 Azithromycin 250 ml @ 125 mls/hr DAILY IV 03/19/25 10:00 03/19/25 11:19 125 MLS/HR Phenylephrine HCl 80 mg/Sodium Chloride 250 ml @ 7.5 mls/hr Q24H IV 03/19/25 09:15 03/19/25 11:05 24.375 MLS/HR Norepinephrine Bitartrate 32 mg/ Sodium Chloride 250 ml @ 0.938 mls/ hr Q24H IV 03/19/25 09:15 03/19/25 11:05 6.563 MLS/HR Vasopressin 20 units/Sodium Chloride 100 ml @ 9 mls/hr Q11H7M IV 03/19/25 09:15 Hydrocortisone Sodium Succinate 100 mg Q12HR IV 03/19/25 10:00 03/19/25 11:19 100 MG Meropenem 50 ml @ 17 mls/hr DAILY IV 03/19/25 10:00 UNV Daptomycin / Sodium Chloride 50 ml @ 100 mls/hr DAILY IV 03/19/25 10:00 UNV Sodium Chloride 10 ml QSHIFT@10,22 IV 03/19/25 10:00 03/19/25 10:00 10 ML Meropenem 50 ml @ 16.7 mls/hr Q12H IV 03/19/25 12:00 Digoxin 0.125 mg EOD PO 03/20/25 10:00 UNV Examination General: Ill-appearing, diaphoretic, fatigued, in mild respiratory distress. o2 2 lt HEENT: scleral icterus, mucous membranes dry. Neck: No JVD appreciable due to body habitus and positioning. Cardiac: Tachycardic, irregular rhythm, no murmurs, rubs, or gallops. Cool extremities. Lungs: Decreased breath sounds on the right base, crackles present, no wheezes. Abdomen: Soft, mildly distended, RUQ tenderness, no rebound or guarding. Extremities: No significant pitting edema; pulses palpable. Neuro: Alert and oriented 3, no focal deficits. Skin: Warm, no rashes, no erythema around IV sites. laboratory and microbiology Laboratory Tests 03/19/25 04:42 Test 03/19/25 04:42 Range/Units Serum Glucose 71 L 74-106 mg/dL Microbiology Date/Time Source Procedure Growth Status 03/18/25 19:34 Blood Blood Culture - Preliminary Resulted Problem List/Assessment/Plan Problem List/Assessment/Plan Assessment & Plan 1. Septic Shock likely secondary to pneumonia with gram-positive bacteremia Febrile, hypotensive, WBC 28.9, lactate elevated, positive blood cultures (gram- positive cocci in clusters). Imaging showing pleural effusion with basilar opacity. On phenylephrine, and levophed. Continue IV meropenem + daptomycin; de-escalate per cultures. Maintain MAP--> 65. Continue vasopressor weaning as tolerated. Consider thoracentesis of right pleural effusion if respiratory status or hemodynamics require it. Daily CXR to monitor effusion. 2. Acute on Chronic Hypoxic Respiratory Failure from pneumonia + pleural effusion SOB with right pleural effusion and consolidation. Evaluate for diagnostic/therapeutic thoracentesis. 3. Gram-positive bacteremia Continue daptomycin. Repeat blood cultures 2. Monitor for end-organ involvement. If persistent bacteremia, consider GELY. TTE ordered 4. Acute Kidney Injury on CKD Cr 2.96 from baseline ~1.4, likely ischemic ATN in shock + sepsis. Avoid nephrotoxins. Strict I/O, daily weights. Continue gentle diuresis only if volume overloaded. Nephrology consulted; follow recommendations. Renal-dose medications. 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 GDMT held due to hypotension and ROBERTO. Continue low-dose furosemide for mild volume management if tolerated. Hold ACEi/ARB/ARNI, MRA, SGLT2i. Continue apixaban. Repeat TTE pending. 6. Atrial fibrillation with RVR (improved) HR peaked at 151; improved with digoxin load. Continue digoxin every other day. No need of dig levels Continue apixaban. Telemetry monitoring. 7. Chronic Hyponatremia Na 123; suspected chronic given history and cirrhosis. Slow correction, Na goal 46 mEq/24 hrs. Nephrology following. Avoid over-diuresis. 8. Cirrhosis with ascites Seen on RUQ ultrasound. Trend LFTs, INR. Case discussed with Dr Washington Plan discussed with: Patient My Orders My Orders Orders - RUPALI SOOD RESIDENT Procedure Category Date Status Time Covid19 Antigen Cindy LAB 03/19/25 Logged Rapid Influenza A&B LAB 03/19/25 Logged 09:01 *[facility] CONS 03/19/25 Transmitted -[place] 09:02 Sodium Chl 0.9% PHA 03/19/25 In Process (Ns... 09:15 Sodium Chl 0.9% PHA 03/19/25 In Process (Ns... 09:15 Sodium Chl 0.9% PHA 03/19/25 In Process (So... W/Vasopressin 09:15 Hydrocortisone PHA 03/19/25 In Process Succinate Inj 10:00 Drug Screen LAB 03/19/25 Logged 09:14 Communication Order ORDERS 03/19/25 Transmitted 09:14 Daptomycin (Cubicin) PHA 03/19/25 Logged 10:00 LIVER US 03/19/25 Resulted 09:53 Echo 2d Mode Cardiac US 03/19/25 Logged DOP 11:13 Meropenem 1gm Ivpb PHA 03/19/25 In Process (Merrem 1gm/50ml) 12:00 Digoxin Tablet PHA 03/20/25 Logged (Lanoxin Tablet) 10:00 Visit Coding Cardiology RES Date of Service: Mar 19, 2025 Billing Provider: NBA WASHINGTON Sr., MD Cardiology Common Codes: [id number] CARE 30-74 MIN RUPALI SOOD RESIDENT Mar 19, 2025 12:25
[2025-03-19] MEDS: ALBUMIN 25% 100 ML IV ONE (12:52)
[2025-03-19] MEDS: MEROPENEM 1GM IVPB 50 ML IV SCH (13:12)
--- NOTE | 2025-03-19 13:44 | DVHCONRES ---
Date Seen: Mar 19, 2025 Resident Creating Document: RAJANI CLAROS RESDIENT History of Present Illness This is a 59-year-old male with past medical history of heart failure (HFrEF, methamphetamine induced, EF 15%), permanent AFib (on Eliquis), BPH, recurrent right-sided pleural effusion/thoracentesis, hypertension and dyslipidemia came to the hospital due to shortness of breath since 3 days. Patient was recently discharged from hospital (had admitted due to CHF exacerbation). Per patient, he has shortness of bed at baseline (Functional Class III) but recently has wor sened. He also reports orthopnea, PND, generalized weakness. Previous hospitalization: Had admitted on 09/02/2024, due to CHF exacerbation PMHx: heart failure (HFrEF, methamphetamine induced, EF 20%), permanent AFib (on Eliquis), BPH, recurrent right-sided pleural effusion/thoracentesis, hypertension and dyslipidemia PSHx: Not significant Family history: Noncontributory Social history: Ex methamphetamine user, ex marijuana user, received ex-smoker, denies any current drug use. Home medication: Eliquis 5 mg b.i.d., digoxin 0.125 mg, has been, atorvastatin, Jardiance, Lasix 40 mg daily, Entresto, Aldactone, and carvedilol, but the patient does not take any medicine the med. Allergic history: Amiodarone, metoprolol and penicillin Family History: FH: myocardial infarction G8 FATHER FH: natural G8 MOTHER 19 CHILD Allergies: Coded Allergies: Amiodarone (Verified Allergy, Unknown, 08/16/23) Metoprolol (Verified Allergy, Unknown, rapid decrease in blood pressure, 02/13/24) Penicillins (Verified Allergy, Unknown, 06/09/23) Home Meds Active Scripts Bumetanide (Bumex Tablet) 1 Mg Tab, 1 MG PO BID for 30 Days, #60 TAB BLK BX WARNING-CAN LEAD TO PROFOUND DIURESIS WITH FLUID- ELECTROLYTE LOSS Prov:JOHN SHAH MD 01/13/25 Atorvastatin Calcium (ATORVASTATIN CALCIUM) 40 Mg Tab, 40 MG PO DAILY for 30 Days, #30 TAB 3 Refills Prov:JOHN SHAH MD 01/13/25 Apixaban Base (ELIQUIS) 5 Mg Tab, 5 MG PO BID for 30 Days, #60 TAB 3 Refills Prov:JOHN SHAH MD 01/13/25 Potassium Chloride (Potassium Chloride ER) 10 Meq Tab, 10 MEQ PO DAILY for 30 Days, #30 TAB 3 Refills Prov:JOHN SHAH MD 01/13/25 Carvedilol (Carvedilol) 3.125 Mg Tab, 3.125 MG PO BID for 30 Days, #60 TAB 3 Refills Prov:JOHN SHAH MD 01/13/25 Tamsulosin Hcl (Tamsulosin Hcl) 0.4 Mg Cap, 1 CAP PO DAILY for 30 Days, #30 CAP Prov:JOHN SHAH MD 01/13/25 Digoxin (Digoxin) 125 Mcg Tab, 125 MCG PO DAILY for 30 Days, #30 TAB Prov:JOHN SHAH MD 01/13/25 Sacubitril-Valsartan (Entresto 24-26 mg) 1 Tab Tab, 1 TAB PO BID for 30 Days, #60 TAB 6 Refills Prov:JOHN SHAH MD 01/13/25 Current Medications Current Medications Medications (Trade) Dose Ordered Sig/Zainab Route PRN Reason Start Time Stop Time Status Last Admin Furosemide (Lasix Injection) 20 mg BIDD IV 03/19/25 06:00 03/19/25 13:40 DC 03/19/25 06:31 Aspirin 162 mg DAILY PO 03/19/25 10:00 03/19/25 11:19 Carvedilol (Coreg Tablet) 3.125 mg Q12HR PO 03/18/25 22:00 03/19/25 11:46 DC 03/18/25 21:24 Apixaban (Eliquis) 5 mg BID PO 03/18/25 22:00 03/19/25 11:18 Spironolactone (Aldactone) 25 mg DAILY PO 03/19/25 10:00 03/19/25 09:23 DC Atorvastatin Calcium (Lipitor) 40 mg HS PO 03/18/25 22:00 03/18/25 21:23 Sacubitril/ Valsartan (Entresto 24-26 Mg tab) 1 tab BID PO 03/19/25 10:00 03/19/25 09:24 DC Digoxin (Lanoxin Tablet) 0.125 mg DAILY PO 03/19/25 10:00 03/19/25 11:46 DC 03/19/25 11:19 Ceftriaxone Sodium 50 ml @ 100 mls/hr DAILY@09 IV 03/19/25 09:00 03/19/25 11:12 DC Acetaminophen/ Hydrocodone Bitart (Landis 5/325MG Tab) 1 tab Q4HP PRN PO MODERATE PAIN (4-6 PAIN SCALE) 03/18/25 19:15 03/18/25 22:50 Ondansetron HCl (Zofran) 4 mg Q4HP PRN IV NAUSEA / VOMITING 03/18/25 19:15 Acetaminophen (Tylenol Tablet) 650 mg Q6HP PRN PO PAIN SCALE 1-3 OR TEMP>100.4 03/18/25 19:15 Nitroglycerin (Ntrostat Sublingual) 0.4 mg Q5MINP PRN SL FOR CHEST PAIN 03/18/25 19:15 Morphine Sulfate 2 mg Q30M PRN IV FOR CHEST PAIN 03/18/25 19:15 Phenylephrine HCl 250 ml @ 30 mls/hr Q8H20M IV 03/19/25 00:15 03/19/25 09:10 DC 03/19/25 07:44 Norepinephrine Bitartrate 250 ml @ 3.75 mls/hr Q24H IV 03/19/25 04:00 03/19/25 09:10 DC 03/19/25 04:10 Azithromycin 250 ml @ 125 mls/hr DAILY IV 03/19/25 10:00 03/19/25 11:19 Phenylephrine HCl 80 mg/Sodium Chloride 250 ml @ 7.5 mls/hr Q24H IV 03/19/25 09:15 03/19/25 11:05 Norepinephrine Bitartrate 32 mg/ Sodium Chloride 250 ml @ 0.938 mls/ hr Q24H IV 03/19/25 09:15 03/19/25 11:05 Vasopressin 20 units/Sodium Chloride 100 ml @ 9 mls/hr Q11H7M IV 03/19/25 09:15 Hydrocortisone Sodium Succinate (Solu-CORTEF INJECTION) 100 mg Q12HR IV 03/19/25 10:00 03/19/25 11:19 Meropenem 50 ml @ 17 mls/hr DAILY IV 03/19/25 10:00 UNV Daptomycin / Sodium Chloride 50 ml @ 100 mls/hr DAILY IV 03/19/25 10:00 UNV Sodium Chloride (Saline Lock Ns) 10 ml QSHIFT@10,22 IV 03/19/25 10:00 03/19/25 10:00 Meropenem 50 ml @ 16.7 mls/hr Q12H IV 03/19/25 12:00 03/19/25 13:12 Digoxin (Lanoxin Tablet) 0.125 mg EOD PO 03/20/25 10:00 Linezolid 300 ml @ 150 mls/hr Q12HR IV 03/19/25 22:00 UNV Furosemide (Lasix Injection) 4 mg BIDD IV 03/19/25 13:45 UNV Metolazone (Zaroxolyn) 5 mg DAILY PO 03/20/25 10:00 UNV Albumin Human 100 ml @ 100 mls/hr Q8H IV 03/19/25 13:45 03/20/25 06:44 UNV Review of Systems Seen and examined at the bedside. Patient is still complaining of shortness of and generalized weakness. Vital Signs Vital Signs Date Time Temp Pulse Resp B/P (MAP) Pulse Ox O2 Delivery O2 Flow Rate FiO2 03/19/25 11:19 111 03/19/25 09:50 103/73 03/19/25 07:30 22 93 03/19/25 07:24 Nasal Cannula* 2 28 03/19/25 06:45 97.9 97.9 Physical Exam General Appearance: Alert, Oriented X3, Cooperative, in moderate respiratory distress HEENT: Atraumatic, PERRLA, EOMI, Mucous membrane moist/pink Respiratory: Bilateral crackles Cardiovascular: Regular rate, Normal S1, Normal S2, No murmurs, no chest wall tenderness Abdominal: Normal bowel sounds, Soft, No tenderness, No hepatospenomegaly, No masses Extremities: Bilateral pedal edema Skin: No rashes, No breakdown, No significant lesion Neuro: Normal gait, Normal speech, Strength at 5/5 X4 ext, Normal tone, Sensation intact, Cranial nerves 3-12 NL, Reflexes 2+ Psych/Mental Status: Mental status NL, Mood NL Labs/Diagnostic Data Labs Test 03/19/25 04:42 03/18/25 17:17 03/18/25 15:30 03/18/25 13:45 Range/Units White Blood Count 28.9 #H 4.4-10.8 10^3/uL Red Blood Count 5.31 4.5-5.90 10^6/uL Hemoglobin 12.5 L 13.5-17.5 g/dL Hematocrit 40.2 #L 41.0-53.0 % Mean Corpuscular Volume 75.6 L 80.0-100.0 fL Mean Corpuscular Hemoglobin 23.5 L 28.0-32.0 pg Mean Corpuscular Hemoglobin Concent 31.1 L 32.0-36.0 g/dL Red Cell Distribution Width 21.4 H 11.8-14.3 % Platelet Count 210 140-450 10^3/uL Mean Platelet Volume 9.9 6.9-10.8 fL Neutrophils (%) (Auto) 37.0-80.0 % Lymphocytes (%) (Auto) 10.0-50.0 % Monocytes (%) (Auto) 0.0-12.0 % Basophils (%) (Auto) 0.0-2.0 % Neutrophils # (Auto) 1.6-8.6 10 ^3/uL Lymphocytes # (Auto) 0.4-5.4 10 ^3/uL Monocytes # (Auto) 0-1.3 10 ^3/uL Differential Total Cells Counted 100.0 100 Neutrophils % (Manual) 80 37.0-80.0 Band Neutrophils % (Manual) 6 Lymphocytes % (Manual) 3 L 10.0-50.0 Monocytes % (Manual) 7 0-12 Eosinophils % (Manual) 1 0-7 Basophils % (Manual) 0 0.0-2.0 Metamyelocytes % (manual) 0 Myelocytes % (Manual) 0 Promyelocytes % (Manual) 0 Blast Cells % (Manual) 3 Reactive Lymphocytes 0 Platelet Estimate Adequate Sodium Level 123 L 136-145 mmol/L Potassium Level 5.0 3.5-5.1 mmol/L Chloride Level 88 L 98-107 mmol/L Carbon Dioxide Level 20 20-31 mmol/L Anion Gap 15 5-15 Blood Urea Nitrogen 49 #H 9-23 mg/dL Creatinine 2.95 H 0.700-1.30 mg/dL Glomerular Filtration Rate Calc 24 >90 mL/min BUN/Creatinine Ratio 16.6 10.0-20.0 Serum Glucose 71 L 74-106 mg/dL Calcium Level 8.3 L 8.7-10.4 mg/dL Total Bilirubin 6.6 H 0.2-1.0 mg/dL Aspartate Amino Transferase (AST) 146 H 13-40 U/L Alanine Aminotransferase (ALT) 53 H 7-40 U/L Alkaline Phosphatase 223 H 46-116 U/L Total Protein 5.6 L 5.7-8.2 g/dL Albumin 3.0 L 3.2-4.8 g/dL Lactic Acid Level 4.1 *H 0.4-2.0 mmol/L Hypochromasia (manual) Slight Anisocytosis (manual) Slight Microcytosis Slight Prothrombin Time 25.1 H 9.3-11.8 sec Prothrombin Time INR 2.60 H 0.9-1.15 Activated Partial Thromboplast Time 38.4 H 24.5-34.5 SEC D-Dimer, Quantitative 24.58 H 0.0-0.49 mg/L FEU Magnesium Level 2.2 1.6-2.6 mg/dL Troponin I High Sensitivity 213 *H </=54 ng/L B-Type Natriuretic Peptide 3471.13 0-100 pg/mL Thyroid Stimulating Hormone (TSH) 4.95 H 0.55-4.78 uIU/mL Digoxin Level 0.35 L 0.8-2 ng/mL Microbiology Date/Time Source Procedure Growth Status 03/18/25 19:34 Blood Blood Culture - Preliminary Resulted Assessment This is a 59-year-old male with past medical history of heart failure (HFrEF, methamphetamine induced, EF 15%), permanent AFib (on Eliquis), BPH, recurrent right-sided pleural effusion/thoracentesis, hypertension and dyslipidemia came to the hospital due to shortness of breath since 3 days. Nephrology is consulted due to raised creatinine. ROBERTO, on CKD , due to septic/cardiogenic shock Hyponatremia, likely due to advanced heart failure Hypokalemia Septic shock Acute on chronic systolic heart failure NSTEMI AFib, with a RVR Hypertension Dyslipidemia Cirrhosis Plan/recommendation: (Dr. Banerjee) * IV Lasix 40 mg b.i.d., and metolazone oral 5 mg daily * IV albumin 100 mL 25% q.8 hours for 2 days * Avoid nephrotoxic medication * Strict I&Os * We will follow up with the patient's Thank you for giving us the opportunity to the care of your patient. Please call back if you have any questions/concerns. Addendum Patient seen and examined, plan discussed with resident. Agree with above, we will follow closely Plan discussed with: Patient, Other (RN) RAJANI CLAROS Mar 19, 2025 13:44 SURENDRA BANERJEE MD Mar 20, 2025 17:24
[2025-03-19] MEDS: ALBUMIN 25% 100 ML IV SCH (13:45)
[2025-03-19 15:44] LABS: COVID19 ANTIGEN SOFIA FIA NEGATIVE (NEGATIVE)
--- NOTE | 2025-03-19 16:55 | DVHPN2 ---
Subjective Patient reports generalized weakness Reviewed: Care Plan, H&P, Labs, Medications, Previous Orders Changes from previous H/P or p: No Changes General: Per HPI Objective Vitals Vital Signs Date Time Temp Pulse Resp B/P (MAP) Pulse Ox O2 Delivery O2 Flow Rate FiO2 03/19/25 14:46 110/77 03/19/25 11:19 111 03/19/25 07:30 22 93 03/19/25 07:24 Nasal Cannula* 2 28 03/19/25 06:45 97.9 97.9 Intake/Output Intake and Output 03/19/25 06:59 Intake Total 577.50 ml Balance 577.50 ml Intake IV Total 577.50 ml General Appearance: Alert, Oriented X3, Cooperative, No acute distress HEENT: Atraumatic, PERRLA Lungs: Clear to auscultation, Normal air movement Cardiovascular: Normal S1, Normal S2 Abdomen: Normal bowel sounds, Soft, No tenderness, No hepatospenomegaly, No masses Musculoskeletal: Normal sensory function, Normal motor function Skin: Dry, Intact Psych/Mental Status: Mental status NL, Mood NL Medications Current Medications Medications Dose Ordered Sig/Zainab Route Start Time Stop Time Status Last Admin Dose Admin Aspirin 162 mg DAILY PO 03/19/25 10:00 03/19/25 11:19 162 MG Apixaban 5 mg BID PO 03/18/25 22:00 03/19/25 11:18 5 MG Atorvastatin Calcium 40 mg HS PO 03/18/25 22:00 03/18/25 21:23 40 MG Acetaminophen/ Hydrocodone Bitart 1 tab Q4HP PRN PO 03/18/25 19:15 03/18/25 22:50 1 TAB Ondansetron HCl 4 mg Q4HP PRN IV 03/18/25 19:15 Acetaminophen 650 mg Q6HP PRN PO 03/18/25 19:15 Nitroglycerin 0.4 mg Q5MINP PRN SL 03/18/25 19:15 Morphine Sulfate 2 mg Q30M PRN IV 03/18/25 19:15 Azithromycin 250 ml @ 125 mls/hr DAILY IV 03/19/25 10:00 03/19/25 11:19 125 MLS/HR Phenylephrine HCl 80 mg/Sodium Chloride 250 ml @ 7.5 mls/hr Q24H IV 03/19/25 09:15 03/19/25 11:05 24.375 MLS/HR Norepinephrine Bitartrate 32 mg/ Sodium Chloride 250 ml @ 0.938 mls/ hr Q24H IV 03/19/25 09:15 03/19/25 11:05 6.563 MLS/HR Vasopressin 20 units/Sodium Chloride 100 ml @ 9 mls/hr Q11H7M IV 03/19/25 09:15 Hydrocortisone Sodium Succinate 100 mg Q12HR IV 03/19/25 10:00 03/19/25 11:19 100 MG Meropenem 50 ml @ 17 mls/hr DAILY IV 03/19/25 10:00 UNV Daptomycin / Sodium Chloride 50 ml @ 100 mls/hr DAILY IV 03/19/25 10:00 UNV Sodium Chloride 10 ml QSHIFT@10,22 IV 03/19/25 10:00 03/19/25 10:00 10 ML Meropenem 50 ml @ 16.7 mls/hr Q12H IV 03/19/25 12:00 03/19/25 13:12 16.7 MLS/HR Digoxin 0.125 mg EOD PO 03/20/25 10:00 Linezolid 300 ml @ 150 mls/hr Q12HR IV 03/19/25 22:00 Furosemide 4 mg BIDD IV 03/19/25 13:45 03/19/25 14:46 4 MG Metolazone 5 mg DAILY PO 03/20/25 10:00 Albumin Human 100 ml @ 100 mls/hr Q8H IV 03/19/25 13:45 03/20/25 06:44 Laboratory Results Laboratory Tests 03/19/25 04:42 Chemistry Test 03/19/25 04:42 Albumin 3.0 g/dL (3.2-4.8) L Calcium Level 8.3 mg/dL (8.7-10.4) L Total Protein 5.6 g/dL (5.7-8.2) L LFT Test 03/19/25 04:42 Alanine Aminotransferase (ALT) 53 U/L (7-40) H Alkaline Phosphatase 223 U/L (46-116) H Aspartate Amino Transferase (AST) 146 U/L (13-40) H Total Bilirubin 6.6 mg/dL (0.2-1.0) H Microbiology Microbiology Date/Time Source Procedure Growth Status 03/18/25 19:34 Blood Blood Culture - Preliminary Resulted Labs and/or images reviewed: Labs reviewed by me, Image(s) reviewed by me Assessment/Plan Assessment/Plan Impression: -septic shock -acute hypoxic respiratory failure -acute on chronic systolic and diastolic heart failure -right pleural effusion -acute kidney injury -chronic kidney disease stage IIIB/four -PE ruled out -history of polysubstance abuse Plan: -continue vasopressor therapy -antibiotic therapy: Cefepime, Zyvox -continue hydrocortisone -blood and urine culture -bronchodilators -PPI -DVT study -nephrology and cardiology consultation -repeat labs in a.m. Critical care time spent with patient discussing and formulating plan of care: 40 minutes. This does not include time spent performing procedures. This medical document was created using an electronic medical record system with [employer] dictation system. Although this document has been carefully reviewed, there may still be some phonetic and typographical errors. These areas are purely typographical due to imperfections of the software programs, and do not reflect any compromise in the patient's medical care. Plan discussed with: Patient, Other (RN) My Orders Orders - ANGELA VAUGHAN NP Procedure Category Date Status Time Linezolid 600mg/300ml PHA 03/19/25 In Process (Zyvox) 22:00 Drug Screen LAB 03/19/25 Logged 13:23 Date of Service: Mar 19, 2025 Billing Provider: ANGELA VAUGHAN NP Common Visit Codes: [id number] CARE 30-74 MIN ANGELA VAUGHAN NP Mar 19, 2025 16:55
--- NOTE | 2025-03-19 17:25 | DVH ---
CLINICAL HISTORY: elevated d dimer TECHNIQUE: Color and duplex doppler imagine of the bilateral lower extremity veins was performed. Vessel compression and augmentation if possible was also performed. COMPARISON: US LEFT LOWER EXTREMITY ULTRASOUN on DOS: 09/03/24 FINDINGS: Right Lower Extremity: Right common femoral vein: Normal compressibility and flow. Right superficial femoral vein: Normal compressibility and flow. Right popliteal vein: Normal compressibility and flow. Left Lower Extremity: Left common femoral vein: Normal compressibility and flow. Left superficial femoral vein: Normal compressibility and flow. Left popliteal vein: Normal compressibility and flow. IMPRESSION: NO SONOGRAPHIC EVIDENCE FOR DEEP VENOUS THROMBOSIS IN THE BILATERAL LOWER EXTREMITY VEINS.
--- NOTE | 2025-03-19 18:39 | DVH ---
CLINICAL HISTORY: ROBERTO TECHNIQUE: Complete ultrasound exam of the kidneys and bladder was performed. COMPARISON: US LIVER on DOS: 03/19/25, US ABDOMEN COMPLETE on DOS: 12/20/22 FINDINGS: The right kidney has normal echogenicity and measures 8.8 cm. There is no focal parenchymal abnormality or evidence for stone. There is no hydronephrosis. The left kidney has normal echogenicity and measures 10.5 cm. There is a 1.4 cm cyst with no evidence for stone. There is no hydronephrosis. The bladder is grossly unremarkable. There are bilateral pleural effusions and ascites. IMPRESSION: No acute sonographic abnormality of the kidneys. Bilateral pleural effusions and ascites, difficult to quantitate. However, diffusion of the right appears grossly moderate.
--- NOTE | 2025-03-19 19:30 | ECG ---
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
[2025-03-19 19:31] LABS: Magnesium 2.7 mg/dL (1.6-2.6)
[2025-03-19] MEDS: LINEZOLID 600MG/300ML 300 ML IV SCH (21:07)
[2025-03-20] VITALS (107 sets, daily range): BP systolic 51–144; BP diastolic 18–105; PULSE 103–157; RESP 14–36; TEMP 97–97.9; O2SAT 78–100
[2025-03-20 04:14] LABS: Hematocrit 46.1 % (41.0-53.0); Hemoglobin 14.3 g/dL (13.5-17.5); Mean Corpuscular Hemoglobin 23.6 pg (28.0-32.0); Mean Corpuscular Volume 76.1 fL (80.0-100.0)
[2025-03-20 04:20] LABS: Base Excess -7.4 mmol/L (-2.0-3.0)
[2025-03-20 04:20] LABS: Anion Gap 14 (5-15); Calcium 8.8 mg/dL (8.7-10.4); Carbon Dioxide 20 mmol/L (20-31); Chloride 89 mmol/L (98-107); Potassium 5.5 mmol/L (3.5-5.1); Sodium 123 mmol/L (136-145)
[2025-03-20 04:25] LABS: BUN/Creatinine Ratio 15.9 (10.0-20.0)
[2025-03-20 04:32] LABS: Blood Urea Nitrogen 56 mg/dL (9-23); Glucose 181 mg/dL (74-106)
[2025-03-20] MEDS: FUROSEMIDE 20 MG/2 ML VIAL IV SCH (05:57)
--- NOTE | 2025-03-20 06:06 | DVH ---
CHEST RADIOGRAPH Indication: acute respiratory failure Technique: Single frontal view of the chest was obtained COMPARISON: XY CHEST PORTABLE on DOS: 03/19/25, XY CHEST PORTABLE on DOS: 03/18/25, XY CHEST PORTABLE on DOS: 03/14/25, XY CHEST PORTABLE on DOS: 01/12/25, XY CHEST PORTABLE on DOS: 01/10/25 FINDINGS: Lines and Tubes: Right PICC in satisfactory position. Lungs: Pulmonary edema. Pleura: Small right pleural effusion. No pneumothorax. Cardiomediastinal contours: Cardiomegaly. Bones: Unremarkable IMPRESSION: Unchanged pulmonary edema
[2025-03-20 06:42] LABS: Anisocytosis Slight; Total Cells Counted 100.0 (100)
[2025-03-20] MEDS: SODIUM ZIRCONIUM CYCL 10 GM PAK PO ONE (08:30)
[2025-03-20] MEDS: InsuLIN REG 1unit/0.01ml Soln (100units/ml) IV ONE ×2 (08:30→10:30)
--- NOTE | 2025-03-20 08:30 | MEDREC ---
[facility] Intervention Section I [facility] Intervention: Duplication of therapy (Duplicate with Cefepime and Meropenem. Please consider d/c one.) SANDOR ALARCON [facility] RESIDENT Mar 20, 2025 08:30
[2025-03-20] MEDS: ALBUTEROL SULF 2.5 MG/0.5ML(0.5%) NEB SOLN NEB ONE (08:55)
[2025-03-20] MEDS: CALCIUM GLUC 1,000mg/50ml-NS 50 ML IV ONE (09:28)
[2025-03-20] MEDS: DEXTROSE (50%) 50ML SYRG IV ONE ×2 (09:28→10:30)
[2025-03-20] MEDS: DIGOXIN 0.125 MG TAB PO SCH (10:00)
[2025-03-20] MEDS ORDERED: CEFEPIME 1GM/50ML 50 ML IV SCH (10:00)
--- NOTE | 2025-03-20 10:44 | DVHPN2 ---
Subjective Patient reports generalized weakness Reviewed: Care Plan, H&P, Labs, Medications, Previous Orders Changes from previous H/P or p: No Changes General: Per HPI Objective Vitals Vital Signs Date Time Temp Pulse Resp B/P (MAP) Pulse Ox O2 Delivery O2 Flow Rate FiO2 03/20/25 09:05 128 18 99 03/20/25 08:55 Mask 8.0 03/20/25 08:55 60 03/20/25 07:29 117/86 03/20/25 00:01 97.0 97.0 Intake/Output Intake and Output 03/20/25 07:00 Intake Total 1552.543 ml Balance 1552.543 ml Intake Oral 250 ml IV Total 1302.543 ml # Voids 1 General Appearance: Alert, Oriented X3, Cooperative, moderate distress, Other (Patient lethargic.) HEENT: Atraumatic, PERRLA Lungs: Clear to auscultation, Normal air movement Cardiovascular: Normal S1, Normal S2 Abdomen: Normal bowel sounds, Soft, No tenderness, No hepatospenomegaly, No masses Musculoskeletal: Normal sensory function, Normal motor function Neuro: Cranial nerves 3-12 NL Skin: Dry, Intact Psych/Mental Status: Mental status NL, Mood NL Medications Current Medications Medications Dose Ordered Sig/Zainab Route Start Time Stop Time Status Last Admin Dose Admin Aspirin 162 mg DAILY PO 03/19/25 10:00 03/19/25 11:19 162 MG Apixaban 5 mg BID PO 03/18/25 22:00 03/19/25 21:06 5 MG Atorvastatin Calcium 40 mg HS PO 03/18/25 22:00 03/19/25 21:06 40 MG Acetaminophen/ Hydrocodone Bitart 1 tab Q4HP PRN PO 03/18/25 19:15 03/18/25 22:50 1 TAB Ondansetron HCl 4 mg Q4HP PRN IV 03/18/25 19:15 Acetaminophen 650 mg Q6HP PRN PO 03/18/25 19:15 Nitroglycerin 0.4 mg Q5MINP PRN SL 03/18/25 19:15 Morphine Sulfate 2 mg Q30M PRN IV 03/18/25 19:15 Phenylephrine HCl 80 mg/Sodium Chloride 250 ml @ 7.5 mls/hr Q24H IV 03/19/25 09:15 03/19/25 19:56 33.75 MLS/HR Norepinephrine Bitartrate 32 mg/ Sodium Chloride 250 ml @ 0.938 mls/ hr Q24H IV 03/19/25 09:15 03/19/25 11:05 6.563 MLS/HR Vasopressin 20 units/Sodium Chloride 100 ml @ 9 mls/hr Q11H7M IV 03/19/25 09:15 Hydrocortisone Sodium Succinate 100 mg Q12HR IV 03/19/25 10:00 03/20/25 09:31 100 MG Meropenem 50 ml @ 17 mls/hr DAILY IV 03/19/25 10:00 UNV Daptomycin / Sodium Chloride 50 ml @ 100 mls/hr DAILY IV 03/19/25 10:00 UNV Sodium Chloride 10 ml QSHIFT@10,22 IV 03/19/25 10:00 03/20/25 09:32 10 ML Meropenem 50 ml @ 16.7 mls/hr Q12H IV 03/19/25 12:00 Hold 03/19/25 13:12 16.7 MLS/HR Digoxin 0.125 mg EOD PO 03/20/25 10:00 Linezolid 300 ml @ 150 mls/hr Q12HR IV 03/19/25 22:00 03/19/25 21:07 150 MLS/HR Metolazone 5 mg DAILY PO 03/20/25 10:00 Bumetanide 25 mg/ Miscellaneous 100 ml @ 4 mls/hr Q24H IV 03/20/25 08:30 Laboratory Results Laboratory Tests 03/20/25 03:58 Chemistry Test 03/19/25 18:05 03/20/25 03:58 Magnesium Level 2.7 mg/dL (1.6-2.6) H Phosphorus Level 5.5 mg/dL (2.4-5.1) H Calcium Level 8.8 mg/dL (8.7-10.4) Blood Gas Results Test 03/20/25 04:10 Arterial Blood pH 7.339 (7.350-7.450) FiO2 % 52.0 Microbiology Microbiology Date/Time Source Procedure Growth Status 03/18/25 19:34 Blood Blood Culture - Preliminary Resulted Labs and/or images reviewed: Labs reviewed by me, Image(s) reviewed by me Assessment/Plan Assessment/Plan Impression: -septic shock -acute hypoxic respiratory failure -acute on chronic systolic and diastolic heart failure -right pleural effusion -acute kidney injury -chronic kidney disease stage IIIB/four -PE ruled out -history of polysubstance abuse -thrombocytopenia -metabolic encephalopathy Plan: Events: Patient with worsening clinical status. Continues to have poor urine output. Olsen catheter has not been placed by nursing staff as ordered. Attempted to place Olsen catheter now. Not able to take pills at this time given encephalopathy. -check ammonia level -potassium lowering : D50 with insulin -continue vasopressor therapy -antibiotic therapy: Cefepime, Zyvox -continue hydrocortisone -blood and urine culture: Preliminary blood culture positive for Gram-positive cocci -echocardiogram pending -bronchodilators -PPI -nephrology and cardiology consultation -repeat labs in a.m. Critical care time spent with patient discussing and formulating plan of care: 40 minutes. This does not include time spent performing procedures. This medical document was created using an electronic medical record system with [employer] dictation system. Although this document has been carefully reviewed, there may still be some phonetic and typographical errors. These areas are purely typographical due to imperfections of the software programs, and do not reflect any compromise in the patient's medical care. Plan discussed with: Patient, Other (RN) My Orders Orders - ANGELA VAUGHAN NP Procedure Category Date Status Time Linezolid 600mg/300ml PHA 03/19/25 In Process (Zyvox) 22:00 Drug Screen LAB 03/19/25 Logged 13:23 Bilat Lower Dvt US 03/19/25 Resulted 16:51 Urinalysis LAB 03/19/25 Logged 16:51 Mrsa Screen VISH 03/19/25 In Process 22:34 Ammonia LAB 03/20/25 Logged 10:13 Date of Service: Mar 20, 2025 Billing Provider: ANGELA VAUGHAN NP Common Visit Codes: [id number] CARE 30-74 MIN ANGELA VAUGHAN NP Mar 20, 2025 10:44
[2025-03-20] MEDS: BUMETANIDE INJECTION 25 MG in GIVE UN-DILUTED 0 ML IV SCH (11:40)
[2025-03-20 12:07] LABS: Free Thyroxine Index 1.4 (1.2-4.9)
--- NOTE | 2025-03-20 12:37 | DVHSR ---
APPROVED REPORT EXAM: LIMITED Two-dimensional and M-mode echocardiogram with Doppler and color Doppler. INDICATION Limited: rule out endocarditis RISK FACTORS Height: 71, Weight: 180 DIMENSIONS LVDd 5.3 (3.8-5.7cm) LA (2D) (1.9-4.0cm) Aortic Root (2.0-3.7cm) LVDs 4.9 (2.5-4.0cm) LA (MM) (1.9-4.0cm) Aortic Cusp Exc (1.5-2.0cm) EF (%) 20.0 (55-70%) Rt. Atrium (1.9-4.0cm) Asc. Aorta cm Mitral Valve Mitral Mitral Stenosis E/A ratio 0.0 2D MVA cm2 Other Information Technically limited study due to to rule out endocarditis and LVEF. Conclusion Technically difficult study. Difficult acoustic windows. Limited access. Underlying atrial fibrillation. Biatrial and biventricular enlargement. Aortic root enlargement. Mild thickening of the mitral leaflets. Mild mitral annular calcification. Mild aortic sclerosis. The tricuspid and pulmonic or structurally normal. Left ventricular systolic performance is markedly diminished. EF is approximately 20% with severe global hypokinesis. Diminished RV function. Doming of the interventricular septum in systole and diastole consistent with a pressure in the volume overload/pulmonary hypertension. Doppler is suboptimal. No pericardial effusion masses or vegetations.
[2025-03-20] MEDS: ALBUMIN 25% 100 ML IV SCH (13:10)
--- NOTE | 2025-03-20 14:24 | DVHPNRES ---
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 He also reports chills and decreased oral intake. In the ED he was febrile, hypotensive, and tachycardic, and developed an episode of AF with RVR with HR up to 151. He denied syncope, new lower extremity swelling, or focal neurological deficits. Troponin was 213 Past Medical History Chronic kidney disease, CHF, AFib, dyslipidemia, hypertension Past Surgical History Hernia repair Family History Noncontributory Smoke: <1 pack per day ALCOHOL: occassional Drugs: Other (Methamphetamine) He required vasopressor support for hypotension and is currently on phenylephrine and vasopressin. CXR and CT imaging demonstrated a right pleural effusion with right basilar opacity concerning for pneumonia. A V/Q scan was negative for PE. RUQ ultrasound showed cirrhosis with ascites, pleural effusion, and gallbladder wall thickening consistent with third spacing rather than acute cholecystitis. Initial labs revealed WBC 19.2 --> 28.9 with 80% neutrophils, Na 123, Cr 2.96 (baseline ~1.4), elevated lactate, Tbili 6.6, AST 146, ALT 53. Blood cultures resulted positive for gram-positive cocci in clusters. Antibiotics were escalated from ceftriaxone to meropenem and daptomycin due to septic shock with bacteremia. For his arrhythmia, he received a 500 mcg IV digoxin load and we will continued on digoxin PO every other day. He is continued on apixaban. GDMT is held due to hypotension and worsening renal function. He is receiving gentle diuresis with furosemide. Nephrology was consulted for ROBERTO and chronic hyponatremia. A repeat transthoracic echocardiogram was ordered to reassess EF and volume status. 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 His chronic HFrEF appears stable and is not the primary cause of decompensation. 03/20/25: Patient still on pressors, wbc trending high, right now on meropenem and linezolid, ECHO prelim read by Dr Washington showed an image that can be artifact vs intracavitary mass, per Dr Washington rescan is needed to clarify, new blood cultures are ordered, we will continue f/u Objective vital signs Vital Sign Date Time Temp Pulse Resp B/P (MAP) Pulse Ox O2 Delivery O2 Flow Rate FiO2 03/20/25 12:00 97.0 110 18 130/87 (101) 82 97.0 03/20/25 10:00 Simple Mask* 8 60 Total Intake and Output 03/19/25 03/19/25 03/20/25 15:00 23:00 07:00 Intake Total 350 ml 637.500 ml 702.543 ml Balance 350 ml 637.500 ml 702.543 ml medications Current Medications Medications Dose Ordered Sig/Zainab Route Start Time Stop Time Status Last Admin Dose Admin Aspirin 162 mg DAILY PO 03/19/25 10:00 03/19/25 11:19 162 MG Apixaban 5 mg BID PO 03/18/25 22:00 03/19/25 21:06 5 MG Atorvastatin Calcium 40 mg HS PO 03/18/25 22:00 03/19/25 21:06 40 MG Acetaminophen/ Hydrocodone Bitart 1 tab Q4HP PRN PO 03/18/25 19:15 03/18/25 22:50 1 TAB Ondansetron HCl 4 mg Q4HP PRN IV 03/18/25 19:15 Acetaminophen 650 mg Q6HP PRN PO 03/18/25 19:15 Nitroglycerin 0.4 mg Q5MINP PRN SL 03/18/25 19:15 Morphine Sulfate 2 mg Q30M PRN IV 03/18/25 19:15 Phenylephrine HCl 80 mg/Sodium Chloride 250 ml @ 7.5 mls/hr Q24H IV 03/19/25 09:15 03/20/25 11:32 26.25 MLS/HR Norepinephrine Bitartrate 32 mg/ Sodium Chloride 250 ml @ 0.938 mls/ hr Q24H IV 03/19/25 09:15 03/19/25 11:05 6.563 MLS/HR Vasopressin 20 units/Sodium Chloride 100 ml @ 9 mls/hr Q11H7M IV 03/19/25 09:15 Hydrocortisone Sodium Succinate 100 mg Q12HR IV 03/19/25 10:00 03/20/25 09:31 100 MG Meropenem 50 ml @ 17 mls/hr DAILY IV 03/19/25 10:00 UNV Daptomycin / Sodium Chloride 50 ml @ 100 mls/hr DAILY IV 03/19/25 10:00 UNV Sodium Chloride 10 ml QSHIFT@10,22 IV 03/19/25 10:00 03/20/25 09:32 10 ML Digoxin 0.125 mg EOD PO 03/20/25 10:00 Linezolid 300 ml @ 150 mls/hr Q12HR IV 03/19/25 22:00 03/20/25 10:46 150 MLS/HR Metolazone 5 mg DAILY PO 03/20/25 10:00 Bumetanide 25 mg/ Miscellaneous 100 ml @ 4 mls/hr Q24H IV 03/20/25 08:30 03/20/25 11:40 4 MLS/HR Albumin Human 100 ml @ 100 mls/hr Q8H IV 03/20/25 12:30 03/21/25 05:29 03/20/25 13:10 100 MLS/HR Meropenem 50 ml @ 16.7 mls/hr Q12H IV 03/20/25 14:00 Examination General: Ill-appearing, diaphoretic, fatigued, in mild respiratory distress. o2 2 lt HEENT: scleral icterus, mucous membranes dry. Neck: No JVD appreciable due to body habitus and positioning. Cardiac: Tachycardic, irregular rhythm, no murmurs, rubs, or gallops. Cool extremities. Lungs: Decreased breath sounds on the right base, crackles present, no wheezes. Abdomen: Soft, mildly distended, RUQ tenderness, no rebound or guarding. Extremities: No significant pitting edema; pulses palpable. Neuro: Alert and oriented 3, no focal deficits. Skin: Warm, no rashes, no erythema around IV sites. laboratory and microbiology Laboratory Tests 03/20/25 13:14 03/20/25 03:58 Test 03/20/25 03:58 Range/Units Serum Glucose 181 #H 74-106 mg/dL Microbiology Date/Time Source Procedure Growth Status 03/18/25 19:34 Blood Blood Culture - Preliminary Resulted Problem List/Assessment/Plan Problem List/Assessment/Plan Assessment & Plan 1. Septic Shock likely secondary to pneumonia with gram-positive bacteremia Febrile, hypotensive, WBC 28.9, lactate elevated, positive blood cultures (gram- positive cocci in clusters). Imaging showing pleural effusion with basilar opacity. On phenylephrine, and levophed. Continue IV meropenem + linezolid 03/20/25: Patient still on pressors, wbc trending high, right now on meropenem and linezolid, ECHO prelim read by Dr Washington showed an image that can be artifact vs intracavitary mass, per Dr Washington rescan is needed to clarify, new blood cultures are ordered, we will continue f/u 2. Acute on Chronic Hypoxic Respiratory Failure from pneumonia + pleural effusion SOB with right pleural effusion and consolidation. 3. Gram-positive bacteremia Continue daptomycin. Repeat blood cultures 2. Monitor for end-organ involvement. If persistent bacteremia, consider GELY. 03/20/25: Patient still on pressors, wbc trending high, right now on meropenem and linezolid, ECHO prelim read by Dr Washington showed an image that can be artifact vs intracavitary mass, per Dr Washington rescan is needed to clarify, new blood cultures are ordered, we will continue f/u 4. Acute Kidney Injury on CKD Avoid nephrotoxins. Strict I/O, daily weights. Continue gentle diuresis only if volume overloaded. Nephrology consulted; follow recommendations. Renal-dose medications. 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 GDMT held due to hypotension and ROBERTO. Continue low-dose furosemide for mild volume management if tolerated. Hold ACEi/ARB/ARNI, MRA, SGLT2i. Continue apixaban. 6. Atrial fibrillation with RVR (improved) HR peaked at 151; improved with digoxin load. Continue digoxin every other day. No need of dig levels Continue apixaban. Telemetry monitoring. 7. Chronic Hyponatremia Na 123; suspected chronic given history and cirrhosis. Slow correction, Na goal 46 mEq/24 hrs. Nephrology following. Avoid over-diuresis. 8. Cirrhosis with ascites Seen on RUQ ultrasound. Trend LFTs, INR. Case discussed with Dr Washington Plan discussed with: Patient, Other (rn, Justino GARCIA) My Orders My Orders Orders - ALMAGUER R,RUPALI RESIDENT Procedure Category Date Status Time Echo 2d Mode Cardiac US 03/20/25 Logged DOP 09:36 Visit Coding Cardiology RES Date of Service: Mar 20, 2025 Billing Provider: RUPALI SOOD RESIDENT Cardiology Common Codes: 45993-QGSYBVPQ CARE 30-74 MIN RUPALI SOOD Mar 20, 2025 14:24
[2025-03-20] MEDS: MEROPENEM 1GM IVPB 50 ML IV SCH (15:47)
--- NOTE | 2025-03-20 17:24 | DVHPN2 ---
Progress Note Date Seen: Mar 20, 2025 Resident Creating Document: RAJANI CLAROS NANI Has the PT tested + for MRSA If YES, has PT been informed?: No Medical Necessity Reason Pt with a Central, PICC or Fol: Yes Subjective Review of Systems Patient seen and examined at the bedside. Patient is more altered and can not provide history. Objective vital signs Vital Sign Date Time Temp Pulse Resp B/P (MAP) Pulse Ox O2 Delivery O2 Flow Rate FiO2 03/20/25 14:15 121 16 114/74 (87) 91 03/20/25 14:00 Simple Mask* 8 60 03/20/25 12:00 97.0 97.0 Total Intake and Output 03/19/25 03/19/25 03/20/25 15:00 23:00 07:00 Intake Total 350 ml 637.500 ml 702.543 ml Balance 350 ml 637.500 ml 702.543 ml medications Current Medications Medications Dose Ordered Sig/Zainab Route Start Time Stop Time Status Last Admin Dose Admin Aspirin 162 mg DAILY PO 03/19/25 10:00 03/19/25 11:19 162 MG Apixaban 5 mg BID PO 03/18/25 22:00 03/19/25 21:06 5 MG Atorvastatin Calcium 40 mg HS PO 03/18/25 22:00 03/19/25 21:06 40 MG Acetaminophen/ Hydrocodone Bitart 1 tab Q4HP PRN PO 03/18/25 19:15 03/18/25 22:50 1 TAB Ondansetron HCl 4 mg Q4HP PRN IV 03/18/25 19:15 Acetaminophen 650 mg Q6HP PRN PO 03/18/25 19:15 Nitroglycerin 0.4 mg Q5MINP PRN SL 03/18/25 19:15 Morphine Sulfate 2 mg Q30M PRN IV 03/18/25 19:15 Phenylephrine HCl 80 mg/Sodium Chloride 250 ml @ 7.5 mls/hr Q24H IV 03/19/25 09:15 03/20/25 11:32 26.25 MLS/HR Norepinephrine Bitartrate 32 mg/ Sodium Chloride 250 ml @ 0.938 mls/ hr Q24H IV 03/19/25 09:15 03/19/25 11:05 6.563 MLS/HR Vasopressin 20 units/Sodium Chloride 100 ml @ 9 mls/hr Q11H7M IV 03/19/25 09:15 Hydrocortisone Sodium Succinate 100 mg Q12HR IV 03/19/25 10:00 03/20/25 09:31 100 MG Meropenem 50 ml @ 17 mls/hr DAILY IV 03/19/25 10:00 UNV Daptomycin / Sodium Chloride 50 ml @ 100 mls/hr DAILY IV 03/19/25 10:00 UNV Sodium Chloride 10 ml QSHIFT@10,22 IV 03/19/25 10:00 03/20/25 09:32 10 ML Digoxin 0.125 mg EOD PO 03/20/25 10:00 Linezolid 300 ml @ 150 mls/hr Q12HR IV 03/19/25 22:00 03/20/25 10:46 150 MLS/HR Metolazone 5 mg DAILY PO 03/20/25 10:00 Bumetanide 25 mg/ Miscellaneous 100 ml @ 4 mls/hr Q24H IV 03/20/25 08:30 03/20/25 11:40 4 MLS/HR Albumin Human 100 ml @ 100 mls/hr Q8H IV 03/20/25 12:30 03/21/25 05:29 03/20/25 13:10 100 MLS/HR Meropenem 50 ml @ 16.7 mls/hr Q12H IV 03/20/25 14:00 03/20/25 15:47 16.7 MLS/HR Examination General Appearance: Alert, Oriented X3, Cooperative, in moderate respiratory distress HEENT: Atraumatic, PERRLA, EOMI, Mucous membrane moist/pink Respiratory: Bilateral crackles Cardiovascular: Regular rate, Normal S1, Normal S2, No murmurs, no chest wall tenderness Abdominal: Normal bowel sounds, Soft, No tenderness, No hepatospenomegaly, No masses Extremities: Bilateral pedal edema Skin: No rashes, No breakdown, No significant lesion Neuro: Normal gait, Normal speech, Strength at 5/5 X4 ext, Normal tone, Sensation intact, Cranial nerves 3-12 NL, Reflexes 2+ Psych/Mental Status: Mental status NL, Mood NL laboratory and microbiology Laboratory Tests 03/20/25 13:14 03/20/25 03:58 Test 03/20/25 03:58 Range/Units Serum Glucose 181 #H 74-106 mg/dL Microbiology Date/Time Source Procedure Growth Status 03/19/25 23:20 Nose MRSA Screen - Final Methicillin Resistant S.aureus Complete 03/18/25 19:34 Blood Blood Culture - Preliminary Resulted Labs and/or images reviewed: Labs reviewed by me, Image(s) reviewed by me Problem List/Assessment/Plan Problem List/Assessment/Plan This is a 59-year-old male with past medical history of heart failure (HFrEF, methamphetamine induced, EF 15%), permanent AFib (on Eliquis), BPH, recurrent right-sided pleural effusion/thoracentesis, hypertension and dyslipidemia came to the hospital due to shortness of breath since 3 days. Nephrology is consulted due to raised creatinine. ROBERTO, on CKD 2, due to septic/cardiogenic shock Hyponatremia, likely due to advanced heart failure Hypokalemia Septic shock Acute on chronic systolic heart failure NSTEMI AFib, with a RVR Hypertension Dyslipidemia Cirrhosis Plan/recommendation: (Dr. Banerjee) * Kidney function is worsening, no urine output, monitor kidney function * Bumex drip 1 milligram/hour., and metolazone oral 5 mg daily * IV albumin 100 mL 25% q.8 hours for 2 days * 100 mEq sodium bicarbonate push * Avoid nephrotoxic medication * Strict I&Os * We will follow up with the patient Thank you for giving us the opportunity to the care of your patient. Please call back if you have any questions/concerns. Addendum Patient seen and examined, plan discussed with resident. Agree with above, we will follow closely girlriend bedside Plan discussed with: Patient, Other (RN) My Orders My Orders Orders - RAJANI CLAROS RESDIALEJANDRA Procedure Category Date Status Time Strict I & O MICHAEL 03/19/25 In Process 18:05 Kidney US 03/19/25 Resulted 18:05 Urine Sodium LAB 03/19/25 Logged 18:05 Urine LAB 03/19/25 Logged Protein/Creatinine Urine Creatinine LAB 03/19/25 Logged 18:05 Give Un-Diluted PHA 03/20/25 In Process (Gi... W/Bumetanide 08:30 Bladder Scan ORDERS 03/20/25 Transmitted 08:27 Albumin 25% (Albutein) PHA 03/20/25 In Process 12:30 Critical Care Time (mins): 40 RAJANI CLAROS Mar 20, 2025 17:24 SURENDRA BANERJEE MD Mar 20, 2025 18:09
[2025-03-20] MEDS: SODIUM BICARB 8.4% 50Meq/50ml SYR Vial IV ONE (18:01)
[2025-03-20 23:05] LABS: Base Excess -5.0 mmol/L (-2.0-3.0)
[2025-03-21] VITALS (113 sets, daily range): BP systolic 78–139; BP diastolic 51–114; PULSE 56–205; RESP 14–29; TEMP 96.5–97.9; O2SAT 62–100
[2025-03-21 01:35] LABS: Amphetamine Screen, Urine Pos (NEGATIVE); Barbiturate Scree,Urine Neg (NEGATIVE); Benzodiazephine Screen, Urine Neg (NEGATIVE); Cannabinoid Screen, Urine Neg (NEGATIVE); Cocaine Screen, Urine Neg (NEGATIVE); Opiate Scree,Urine Neg (NEGATIVE); Phencyclidine Screen, Urine Neg (NEGATIVE)
[2025-03-21 01:37] LABS: Urine Protein, UAD 2+ (Negative)
[2025-03-21] MEDS: DIGOXIN (250MCG/ML) 2 ML AMPULE IV ONE (03:18)
[2025-03-21 04:27] LABS: Protein, Urine 1084.4 mg/dL (1-14)
[2025-03-21 04:35] LABS: Hemoglobin 12.2 g/dL (13.5-17.5)
[2025-03-21 04:39] LABS: Hematocrit 38.8 % (41.0-53.0); Mean Corpuscular Hemoglobin 23.8 pg (28.0-32.0); Mean Corpuscular Volume 75.7 fL (80.0-100.0); Nucleated Red Blood Cells % 0.5 %
[2025-03-21 04:58] LABS: Anion Gap 17 (5-15); BUN/Creatinine Ratio 22.7 (10.0-20.0); Carbon Dioxide 21 mmol/L (20-31); Total Protein 6.2 g/dL (5.7-8.2)
[2025-03-21 04:59] LABS: Albumin 3.7 g/dL (3.2-4.8)
[2025-03-21 05:06] LABS: Alanine Aminotransferase 55 U/L (7-40); Alkaline Phosphatase 217 U/L (46-116); Bilirubin, Total 8.1 mg/dL (0.2-1.0); Blood Urea Nitrogen 100 mg/dL (9-23); Calcium 8.3 mg/dL (8.7-10.4); Chloride 88 mmol/L (98-107); Glucose 157 mg/dL (74-106); Magnesium 2.7 mg/dL (1.6-2.6); Potassium 5.5 mmol/L (3.5-5.1); Sodium 126 mmol/L (136-145)
--- NOTE | 2025-03-21 05:50 | DVH ---
CHEST RADIOGRAPH Indication: SOB Technique: 1 view Comparison: XY CHEST PORTABLE on DOS: 03/20/25, XY CHEST PORTABLE on DOS: 03/19/25, XY CHEST PORTABLE on DOS: 03/18/25, XY CHEST PORTABLE on DOS: 03/14/25, XY CHEST PORTABLE on DOS: 01/12/25 FINDINGS: Lines and Tubes: Unchanged right upper extremity PICC. Lungs/Pleura: Unchanged. Cardiomediastinum: Unchanged. Other: Unchanged osseous structures. IMPRESSION: 1. No significant change from the previous study. Heart failure pattern with pleural effusions and adjacent airspace disease.
[2025-03-21] MEDS: CALCIUM GLUC 1,000mg/50ml-NS 50 ML IV ONE (06:14)
[2025-03-21] MEDS: DEXTROSE (50%) 50ML SYRG IV ONE (06:15)
[2025-03-21] MEDS: SODIUM BICARB 8.4% 50Meq/50ml SYR INJ IV ONE (06:15)
[2025-03-21] MEDS: ALBUTEROL SULF 2.5 MG/0.5ML(0.5%) NEB SOLN NEB ONE (06:16)
[2025-03-21] MEDS: InsuLIN REG 1unit/0.01ml Soln (100units/ml) IV ONE (06:23)
--- NOTE | 2025-03-21 08:05 | DVH ---
Exam: US US GUIDED VASCULAR ACCESS Date: 03/19/2025 07:50 AM Clinical History: PICC LINE PLACEMENT Comparison: US BILAT LOWER DVT on DOS: 03/19/25, US LEFT LOWER EXTREMITY ULTRASOUN on DOS: 09/03/24 Findings: Targeted sonographic evaluation of the basilic vein was obtained utilizing grayscale and color Doppler imaging. IMPRESSION: Sonographic assistance for central line placement. Please refer to procedural report for detailed findings.
[2025-03-21] MEDS: ROCURONIUM 10MG/ML 10ML VIAL IV ONE ×2 (10:19→11:15)
[2025-03-21] MEDS: ETOMIDATE (2MG/ML) 20ML VIAL IV ONE ×2 (10:28→11:15)
[2025-03-21] MEDS: MIDAZOLAM DRIP 100 mg/100mL NS 100 ML IV ONE (10:32)
[2025-03-21] MEDS: fentaNYL Drip 2500mCg/250mlNS 250 ML IV ONE (10:32)
[2025-03-21] MEDS: PROPOFOL 100 ML IV ONE (10:33)
[2025-03-21] MEDS: PROPOFOL 100 ML IV SCH (10:42)
[2025-03-21] MEDS: MIDAZOLAM DRIP 100 mg/100mL NS 100 ML IV SCH (10:42)
[2025-03-21] MEDS: fentaNYL Drip 2500mCg/250mlNS 250 ML IV SCH (10:42)
--- NOTE | 2025-03-21 11:21 | DVH ---
CHEST RADIOGRAPH Indication: CENTRAL LINE Technique: XY CHEST XRAY 1 VIEW COMPARISON: 03/21/2025 FINDINGS: The endotracheal tube tip projects 3.7 cm above the ramses. Right IJ leisa catheter tip projects over the SVC. Right PICC line tip projects over the SVC. The cardiac silhouette is enlarged. The lungs demonstrate bilateral patchy airspace opacities. The pulmonary vasculature is prominent. Moderate to large bilateral pleural effusions, [id number]. There is no pneumothorax. IMPRESSION: As above
[2025-03-21 12:16] LABS: Base Excess -3.6 mmol/L (-2.0-3.0)
--- NOTE | 2025-03-21 12:51 | DVHNC2 ---
Procedure - Procedure- Endotracheal intubation Indication- Airway protection Procedure Consent was obtained and timeout performed per protocol. The patient was placed in the supine position, preoxygenated with 100% FiO2 and pre-medicated with Etomidate 20mg and Rocuronium 50mg IV. MAC size 4 was used to visualize the vocal cords, size 8.0 [place] endotracheal tube was passed through the cords into the trachea and secured at 24cm at the lip. Correct placement of the tube was confirmed by auscultation of breath sounds bilaterally and positive capnography. Chest x-ray ordered JESSICA RAYMUNDO MD Mar 21, 2025 12:51
--- NOTE | 2025-03-21 12:51 | DVHPN2 ---
Progress Note - Dictate Date Seen: Mar 21, 2025 Has the PT tested + for MRSA If YES, has PT been informed?: No Medical Necessity Reason Pt with a Central, PICC or Fol: Yes The following are medically ne: Central Line vital signs Vital Sign Date Time Temp Pulse Resp B/P (MAP) Pulse Ox O2 Delivery O2 Flow Rate FiO2 03/21/25 11:55 120 24 107/72 (84) 100 100 03/21/25 07:46 Oxymizer 10 03/21/25 04:01 97.2 97.2 Total Intake and Output 03/20/25 03/20/25 03/21/25 15:00 23:00 07:00 Intake Total 762.252 ml 970.852 ml 1097.315 ml Output Total 15 ml 25 ml Balance 762.252 ml 955.852 ml 1072.315 ml medications Current Medications Medications Dose Ordered Sig/Zainba Route Start Time Stop Time Status Last Admin Dose Admin Aspirin 162 mg DAILY PO 03/19/25 10:00 03/21/25 09:31 162 MG Apixaban 5 mg BID PO 03/18/25 22:00 03/21/25 09:31 5 MG Atorvastatin Calcium 40 mg HS PO 03/18/25 22:00 03/20/25 21:14 40 MG Acetaminophen/ Hydrocodone Bitart 1 tab Q4HP PRN PO 03/18/25 19:15 03/20/25 22:30 1 TAB Ondansetron HCl 4 mg Q4HP PRN IV 03/18/25 19:15 Acetaminophen 650 mg Q6HP PRN PO 03/18/25 19:15 Nitroglycerin 0.4 mg Q5MINP PRN SL 03/18/25 19:15 Morphine Sulfate 2 mg Q30M PRN IV 03/18/25 19:15 Phenylephrine HCl 80 mg/Sodium Chloride 250 ml @ 7.5 mls/hr Q24H IV 03/19/25 09:15 03/21/25 04:59 29.063 MLS/HR Norepinephrine Bitartrate 32 mg/ Sodium Chloride 250 ml @ 0.938 mls/ hr Q24H IV 03/19/25 09:15 03/21/25 05:05 5.625 MLS/HR Vasopressin 20 units/Sodium Chloride 100 ml @ 9 mls/hr Q11H7M IV 03/19/25 09:15 Hydrocortisone Sodium Succinate 100 mg Q12HR IV 03/19/25 10:00 03/21/25 09:31 100 MG Meropenem 50 ml @ 17 mls/hr DAILY IV 03/19/25 10:00 UNV Daptomycin / Sodium Chloride 50 ml @ 100 mls/hr DAILY IV 03/19/25 10:00 UNV Sodium Chloride 10 ml QSHIFT@10,22 IV 03/19/25 10:00 03/21/25 09:31 10 ML Digoxin 0.125 mg EOD PO 03/20/25 10:00 Linezolid 300 ml @ 150 mls/hr Q12HR IV 03/19/25 22:00 03/21/25 09:31 150 MLS/HR Metolazone 5 mg DAILY PO 03/20/25 10:00 Bumetanide 25 mg/ Miscellaneous 100 ml @ 4 mls/hr Q24H IV 03/20/25 08:30 03/21/25 04:56 4 MLS/HR Meropenem 50 ml @ 16.7 mls/hr Q12H IV 03/20/25 14:00 03/21/25 03:32 16.7 MLS/HR Propofol 100 ml @ 2.721 mls/ hr Q24H IV 03/21/25 11:15 Midazolam HCl 100 ml @ 1 mls/hr Q24H IV 03/21/25 11:15 Fentanyl Citrate 250 ml @ 2.5 mls/hr Q24H IV 03/21/25 11:15 laboratory and microbiology Laboratory Tests 03/21/25 03:10 Test 03/21/25 03:10 Range/Units Serum Glucose 157 H 74-106 mg/dL Assessment/Plan Speeder Frame Tender rounds Patient is a 59-year old gentleman with a history of substance abuse, congestive heart failure and 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 Patient was found to have worsening labs and hemodynamics requiring two pressors. Blood cultures positive for GPC raising concern for endocarditis. He continued to decline and was subsequently intubated at the bedside, right IJ central line placed for intravenous access. Impression Acute hypoxemic respiratory failure Hx of substance abuse Bacteremia ROBERTO Patient seen and examined in STEFF Events On mechanical ventilation S/p intubation Initial settings RR 24, tidal volume 450, PEEP 5, FiO2 100% Right IJ central line placed for intravenous access See separate note for procedure in detail Labs and imaging reviewed ABG reviewed Management Vent support Titrate to maintain sats 90% or above Sedation for vent synchrony Continue antibiotics F/u cultures and ID Bronchodilators Monitor renal function Monitor electrolytes Supplement as needed Pressors as needed for hemodynamic support To maintain a mean arterial pressure of 65 mmHg F/u cardiology DVT prophylaxis Critical care time 35 minutes Plan discussed with: Other (Rn) JESSICA RAYMUNDO MD Mar 21, 2025 12:51
--- NOTE | 2025-03-21 12:52 | DVHNC2 ---
Procedure - Procedure- Right IJ central line placement ultrasound guided Indication- Intravenous access Procedure in detail Consent was obtained and timeout performed per protocol. The patient was placed in the supine position and the right IJ vein was localized using ultrasound SonoSite. ChloraPrep was used to clean the operative field, sterile drapes used to cover the area and local analgesia Lidocaine 1% 3 cc. Triple-lumen catheter was inserted over the wire with direct ultrasound guidance in the right IJ vein. The wire was removed, catheter flushed with normal saline and secured with 2 sutures. Sterile dressing applied. No complications. JESSICA RAYMUNDO MD Mar 21, 2025 12:52
--- NOTE | 2025-03-21 12:56 | DVHNC2 ---
Procedure - Procedure- Right IJ dialysis catheter placement ultrasound guided Indication- Renal failure and fluid removal Procedure in detail Consent was obtained and timeout performed per protocol. The patient was placed in the supine position and the right IJ vein was localized using ultrasound SonoSite. ChloraPrep was used to clean the operative field, sterile drapes used to cover the area and local analgesia Lidocaine 1% 3 cc. Dual-lumen hemodialysis catheter was inserted over the wire with direct ultrasound guidance in the right IJ vein. The wire was removed, catheter flushed with normal saline and secured with 2 sutures. Sterile dressing applied. No complications. JESSICA RAYMUNDO MD Mar 21, 2025 12:56
--- NOTE | 2025-03-21 13:28 | DVH ---
CHEST RADIOGRAPH Indication: OGT PLACEMENT AND ET TUBE VERIFICATION AFTER ADJUSTMENT. Technique: Single frontal view of the chest was obtained Comparison: XY CHEST XRAY 1 VIEW on DOS: 03/21/25, XY CHEST PORTABLE on DOS: 03/21/25, XY CHEST PORTABLE on DOS: 03/20/25 FINDINGS: Lines and Tubes: Endotracheal tube 5.3 cm above the ramses. Right internal jugular catheter in place in superior vena cava tip is not well seen. Lungs: Bibasilar airspace disease is noted without significant improvement from study of 03/21/2025 at 10:42 a.m. Pleura: No effusion. No pneumothorax. Cardiomediastinal contours: Unremarkable Bones: No acute osseous abnormality. IMPRESSION: 1. Endotracheal tube 5.3 cm above the ramses 2. Right internal jugular catheter in place in the superior vena cava tip is not well seen may be at the cavoatrial junction or within the atrium. 3. Bibasilar airspace disease and pleural effusions are unimproved from earlier film 1052 a.m.
--- NOTE | 2025-03-21 13:43 | DVHPN2 ---
Consult Progress Note Subjective Patient reports: Other (intubated) Review of Systems: Not Done (Sedated and intubated) Objective vital signs Vital Sign Date Time Temp Pulse Resp B/P (MAP) Pulse Ox O2 Delivery O2 Flow Rate FiO2 03/21/25 11:55 120 24 107/72 (84) 100 100 03/21/25 07:46 Oxymizer 10 03/21/25 04:01 97.2 97.2 Total Intake and Output 03/20/25 03/20/25 03/21/25 15:00 23:00 07:00 Intake Total 762.252 ml 970.852 ml 1097.315 ml Output Total 15 ml 25 ml Balance 762.252 ml 955.852 ml 1072.315 ml medications Current Medications Medications Dose Ordered Sig/Zainab Route Start Time Stop Time Status Last Admin Dose Admin Aspirin 162 mg DAILY PO 03/19/25 10:00 03/21/25 09:31 162 MG Apixaban 5 mg BID PO 03/18/25 22:00 03/21/25 09:31 5 MG Atorvastatin Calcium 40 mg HS PO 03/18/25 22:00 03/20/25 21:14 40 MG Acetaminophen/ Hydrocodone Bitart 1 tab Q4HP PRN PO 03/18/25 19:15 03/20/25 22:30 1 TAB Ondansetron HCl 4 mg Q4HP PRN IV 03/18/25 19:15 Acetaminophen 650 mg Q6HP PRN PO 03/18/25 19:15 Nitroglycerin 0.4 mg Q5MINP PRN SL 03/18/25 19:15 Morphine Sulfate 2 mg Q30M PRN IV 03/18/25 19:15 Phenylephrine HCl 80 mg/Sodium Chloride 250 ml @ 7.5 mls/hr Q24H IV 03/19/25 09:15 03/21/25 04:59 29.063 MLS/HR Norepinephrine Bitartrate 32 mg/ Sodium Chloride 250 ml @ 0.938 mls/ hr Q24H IV 03/19/25 09:15 03/21/25 05:05 5.625 MLS/HR Vasopressin 20 units/Sodium Chloride 100 ml @ 9 mls/hr Q11H7M IV 03/19/25 09:15 Hydrocortisone Sodium Succinate 100 mg Q12HR IV 03/19/25 10:00 03/21/25 09:31 100 MG Meropenem 50 ml @ 17 mls/hr DAILY IV 03/19/25 10:00 UNV Daptomycin / Sodium Chloride 50 ml @ 100 mls/hr DAILY IV 03/19/25 10:00 UNV Sodium Chloride 10 ml QSHIFT@10,22 IV 03/19/25 10:00 03/21/25 09:31 10 ML Digoxin 0.125 mg EOD PO 03/20/25 10:00 Linezolid 300 ml @ 150 mls/hr Q12HR IV 03/19/25 22:00 03/21/25 09:31 150 MLS/HR Metolazone 5 mg DAILY PO 03/20/25 10:00 Bumetanide 25 mg/ Miscellaneous 100 ml @ 4 mls/hr Q24H IV 03/20/25 08:30 03/21/25 04:56 4 MLS/HR Meropenem 50 ml @ 16.7 mls/hr Q12H IV 03/20/25 14:00 03/21/25 03:32 16.7 MLS/HR Propofol 100 ml @ 2.721 mls/ hr Q24H IV 03/21/25 11:15 Midazolam HCl 100 ml @ 1 mls/hr Q24H IV 03/21/25 11:15 Fentanyl Citrate 250 ml @ 2.5 mls/hr Q24H IV 03/21/25 11:15 Examination: CVS:Abnormal (atrial fibrillation with RVR) laboratory and microbiology Laboratory Tests 03/21/25 03:10 Test 03/21/25 03:10 Range/Units Serum Glucose 157 H 74-106 mg/dL Problem List/Assessment/Plan Problem List/Assessment/Plan Problem List/Assessment/Plan Problem List/Assessment/Plan Assessment & Plan 1. Septic Shock likely secondary to pneumonia with gram-positive bacteremia Febrile, hypotensive, WBC 28.9, lactate elevated, positive blood cultures (gram- positive cocci in clusters). Imaging showing pleural effusion with basilar opacity. On phenylephrine, and levophed. Continue IV meropenem + linezolid 03/20/25: Patient still on pressors, wbc trending high, right now on meropenem and linezolid, ECHO prelim read by Dr Washington showed an image that can be artifact vs intracavitary mass, per Dr Felix you is needed to clarify, new blood cultures are ordered, we will continue f/u 03/21/2025 pending repeat ECHO. Intubated this a.m., FiO2 100%. On vasopressor support. 2. Acute on Chronic Hypoxic Respiratory Failure from pneumonia + pleural effusion SOB with right pleural effusion and consolidation. On 100% FiO2, intubated. Sedated. Pulmonology on board. 3. Gram-positive bacteremia Continue daptomycin. Repeat blood cultures 2. Monitor for end-organ involvement. If persistent bacteremia, consider GELY. 03/20/25: Patient still on pressors, wbc trending high, right now on meropenem and linezolid, ECHO prelim read by Dr Washington showed an image that can be artifact vs intracavitary mass, per Dr Washington rescan is needed to clarify, new blood cultures are ordered, we will continue f/u - continue monitoring blood cultures. 4. Acute Kidney Injury on CKD Avoid nephrotoxins. Strict I/O, daily weights. Continue gentle diuresis only if volume overloaded. Nephrology consulted; follow recommendations. Renal-dose medications. 03/20/2025 Plan initiation on HD. 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 GDMT held due to hypotension and ROBERTO. Continue low-dose furosemide for mild volume management if tolerated. Hold ACEi/ARB/ARNI, MRA, SGLT2i. Continue apixaban. 6. Atrial fibrillation with RVR (improved) HR peaked at 151; improved with digoxin load. Continue digoxin every other day. No need of dig levels Continue apixaban. Telemetry monitoring. Still in RVR, did held in setting of worsening kidney function. 7. Chronic Hyponatremia Na 123; suspected chronic given history and cirrhosis. Slow correction, Na goal 46 mEq/24 hrs. Nephrology following. Avoid over-diuresis. 8. Cirrhosis with ascites Seen on RUQ ultrasound. Trend LFTs, INR. Poor overall prognosis. Case discussed with Dr Washington Plan discussed with: Other (bedside RN) Date of Service: Mar 21, 2025 Billing Provider: DEBORA OHARA Common Visit Codes: [id number] INP/OBS CARE(HIGH), [id number] CARE 30-74 MIN DEBORA OHARA Mar 21, 2025 13:43
--- NOTE | 2025-03-21 14:13 | DVHPN2 ---
Progress Note Date Seen: Mar 21, 2025 Has the PT tested + for MRSA If YES, has PT been informed?: No Medical Necessity Reason Pt with a Central, PICC or Fol: Yes The following are medically ne: Central Line Subjective Patient reports: Other (events noted) Review of Systems: Deferred Objective vital signs Vital Sign Date Time Temp Pulse Resp B/P (MAP) Pulse Ox O2 Delivery O2 Flow Rate FiO2 03/21/25 14:00 113 24 111/77 (88) 98 03/21/25 12:00 96.5 96.5 03/21/25 11:55 100 03/21/25 10:00 Oxymizer 10.0 Total Intake and Output 03/20/25 03/20/25 03/21/25 15:00 23:00 07:00 Intake Total 762.252 ml 970.852 ml 1097.315 ml Output Total 15 ml 25 ml Balance 762.252 ml 955.852 ml 1072.315 ml medications Current Medications Medications Dose Ordered Sig/Zainab Route Start Time Stop Time Status Last Admin Dose Admin Aspirin 162 mg DAILY PO 03/19/25 10:00 03/21/25 09:31 162 MG Apixaban 5 mg BID PO 03/18/25 22:00 03/21/25 09:31 5 MG Atorvastatin Calcium 40 mg HS PO 03/18/25 22:00 03/20/25 21:14 40 MG Acetaminophen/ Hydrocodone Bitart 1 tab Q4HP PRN PO 03/18/25 19:15 03/20/25 22:30 1 TAB Ondansetron HCl 4 mg Q4HP PRN IV 03/18/25 19:15 Acetaminophen 650 mg Q6HP PRN PO 03/18/25 19:15 Nitroglycerin 0.4 mg Q5MINP PRN SL 03/18/25 19:15 Morphine Sulfate 2 mg Q30M PRN IV 03/18/25 19:15 Phenylephrine HCl 80 mg/Sodium Chloride 250 ml @ 7.5 mls/hr Q24H IV 03/19/25 09:15 03/21/25 04:59 29.063 MLS/HR Norepinephrine Bitartrate 32 mg/ Sodium Chloride 250 ml @ 0.938 mls/ hr Q24H IV 03/19/25 09:15 03/21/25 05:05 5.625 MLS/HR Vasopressin 20 units/Sodium Chloride 100 ml @ 9 mls/hr Q11H7M IV 03/19/25 09:15 Hydrocortisone Sodium Succinate 100 mg Q12HR IV 03/19/25 10:00 03/21/25 09:31 100 MG Meropenem 50 ml @ 17 mls/hr DAILY IV 03/19/25 10:00 UNV Daptomycin / Sodium Chloride 50 ml @ 100 mls/hr DAILY IV 03/19/25 10:00 UNV Sodium Chloride 10 ml QSHIFT@10,22 IV 03/19/25 10:00 03/21/25 09:31 10 ML Digoxin 0.125 mg EOD PO 03/20/25 10:00 Linezolid 300 ml @ 150 mls/hr Q12HR IV 03/19/25 22:00 03/21/25 09:31 150 MLS/HR Metolazone 5 mg DAILY PO 03/20/25 10:00 Bumetanide 25 mg/ Miscellaneous 100 ml @ 4 mls/hr Q24H IV 03/20/25 08:30 03/21/25 04:56 4 MLS/HR Meropenem 50 ml @ 16.7 mls/hr Q12H IV 03/20/25 14:00 03/21/25 03:32 16.7 MLS/HR Propofol 100 ml @ 2.721 mls/ hr Q24H IV 03/21/25 11:15 Midazolam HCl 100 ml @ 1 mls/hr Q24H IV 03/21/25 11:15 Fentanyl Citrate 250 ml @ 2.5 mls/hr Q24H IV 03/21/25 11:15 laboratory and microbiology Laboratory Tests 03/21/25 03:10 Test 03/21/25 03:10 Range/Units Serum Glucose 157 H 74-106 mg/dL Microbiology Date/Time Source Procedure Growth Status 03/20/25 15:03 Blood Blood Culture - Preliminary Resulted 03/19/25 23:20 Nose MRSA Screen - Final Methicillin Resistant S.aureus Complete Problem List/Assessment/Plan Problem List/Assessment/Plan This is a 59-year-old male with past medical history of heart failure (HFrEF, methamphetamine induced, EF 15%), permanent AFib (on Eliquis), BPH, recurrent right-sided pleural effusion/thoracentesis, hypertension and dyslipidemia came to the hospital due to shortness of breath since 3 days. Nephrology is consulted due to raised creatinine. ROBERTO, on CKD 2, due to septic/cardiogenic shock VDRF intubated 03/21 Hyponatremia, likely due to advanced heart failure Hypokalemia Septic shock Acute on chronic systolic heart failure NSTEMI AFib, with a RVR Hypertension Dyslipidemia Cirrhosis Plan/recommendation: no response to bumex drip recommend HD s/p leisa cath intubated Plan discussed with: Other My Orders My Orders Orders - SURENDRA BANERJEE MD Procedure Category Date Status Time Communication Order ORDERS 03/21/25 Transmitted 08:51 Hepatitis B Surface LAB 03/21/25 In Process Antigen 11:42 Hemodialysis Orders ORDERS 03/21/25 Transmitted 12:45 Dialysis Nursing MICHAEL 03/21/25 In Process Message 12:45 Document Fluid Input MICHAEL 03/21/25 In Process And Outpu 12:45 SURENDRA BANERJEE MD Mar 21, 2025 14:13
--- NOTE | 2025-03-21 14:32 | DVHPN2 ---
Subjective The patient is seen and examined at bedside. The patient just get intubated early today. Remained on vent Reviewed: Care Plan, H&P, Labs, Medications, Previous Orders Changes from previous H/P or p: No Changes General: Per HPI Objective Vitals Vital Signs Date Time Temp Pulse Resp B/P (MAP) Pulse Ox O2 Delivery O2 Flow Rate FiO2 03/21/25 14:22 100 24 107/73 (84) 98 60 03/21/25 12:00 96.5 96.5 03/21/25 12:00 Mechanical Ventilator+ 10 Intake/Output Intake and Output 03/21/25 07:00 Intake Total 2830.419 ml Output Total 40 ml Balance 2790.419 ml Intake Oral 920 ml IV Total 1910.419 ml Output Urine Total 40 ml General Appearance: Other (Intubated, on vent) HEENT: Atraumatic, PERRLA Lungs: Clear to auscultation, Normal air movement Cardiovascular: Normal S1, Normal S2 Abdomen: Normal bowel sounds, Soft, No tenderness, No hepatospenomegaly, No masses Neuro: Other (Intubated, on vent, unable to exam) Skin: Dry, Intact Psych/Mental Status: Other (Intubated, on vent, unable to exam) Medications Current Medications Medications Dose Ordered Sig/Zainab Route Start Time Stop Time Status Last Admin Dose Admin Aspirin 162 mg DAILY PO 03/19/25 10:00 03/21/25 09:31 162 MG Apixaban 5 mg BID PO 03/18/25 22:00 03/21/25 09:31 5 MG Atorvastatin Calcium 40 mg HS PO 03/18/25 22:00 03/20/25 21:14 40 MG Acetaminophen/ Hydrocodone Bitart 1 tab Q4HP PRN PO 03/18/25 19:15 03/20/25 22:30 1 TAB Ondansetron HCl 4 mg Q4HP PRN IV 03/18/25 19:15 Acetaminophen 650 mg Q6HP PRN PO 03/18/25 19:15 Nitroglycerin 0.4 mg Q5MINP PRN SL 03/18/25 19:15 Morphine Sulfate 2 mg Q30M PRN IV 03/18/25 19:15 Phenylephrine HCl 80 mg/Sodium Chloride 250 ml @ 7.5 mls/hr Q24H IV 03/19/25 09:15 03/21/25 04:59 29.063 MLS/HR Norepinephrine Bitartrate 32 mg/ Sodium Chloride 250 ml @ 0.938 mls/ hr Q24H IV 03/19/25 09:15 03/21/25 05:05 5.625 MLS/HR Vasopressin 20 units/Sodium Chloride 100 ml @ 9 mls/hr Q11H7M IV 03/19/25 09:15 Hydrocortisone Sodium Succinate 100 mg Q12HR IV 03/19/25 10:00 03/21/25 09:31 100 MG Meropenem 50 ml @ 17 mls/hr DAILY IV 03/19/25 10:00 UNV Daptomycin / Sodium Chloride 50 ml @ 100 mls/hr DAILY IV 03/19/25 10:00 UNV Sodium Chloride 10 ml QSHIFT@,22 IV 03/19/25 10:00 03/21/25 09:31 10 ML Digoxin 0.125 mg EOD PO 03/20/25 10:00 Linezolid 300 ml @ 150 mls/hr Q12HR IV 03/19/25 22:00 03/21/25 09:31 150 MLS/HR Metolazone 5 mg DAILY PO 03/20/25 10:00 Bumetanide 25 mg/ Miscellaneous 100 ml @ 4 mls/hr Q24H IV 03/20/25 08:30 03/21/25 04:56 4 MLS/HR Meropenem 50 ml @ 16.7 mls/hr Q12H IV 03/20/25 14:00 03/21/25 03:32 16.7 MLS/HR Propofol 100 ml @ 2.721 mls/ hr Q24H IV 03/21/25 11:15 Midazolam HCl 100 ml @ 1 mls/hr Q24H IV 03/21/25 11:15 Fentanyl Citrate 250 ml @ 2.5 mls/hr Q24H IV 03/21/25 11:15 Laboratory Results Laboratory Tests 03/21/25 03:10 Chemistry Test 03/21/25 03:10 Albumin 3.7 g/dL (3.2-4.8) Calcium Level 8.3 mg/dL (8.7-10.4) L Magnesium Level 2.7 mg/dL (1.6-2.6) H Total Protein 6.2 g/dL (5.7-8.2) LFT Test 03/21/25 03:10 Alanine Aminotransferase (ALT) 55 U/L (7-40) H Alkaline Phosphatase 217 U/L (46-116) H Aspartate Amino Transferase (AST) 95 U/L (13-40) H Total Bilirubin 8.1 mg/dL (0.2-1.0) H Urinalysis Test 03/21/25 00:00 03/21/25 03:10 Urine Color Dark-yellow (Yellow) Urine Clarity Turbid (Clear) H Urine pH 6.0 (5.0-9.0) Urine Specific Monitor 1.014 (1.001-1.035) Urine Protein 2+ (Negative) H Urine Ketones Negative (Negative) Urine Blood 3+ /uL (Negative) H Urine Nitrite Negative (Negative) Urine Bilirubin 1+ (Negative) Urine Urobilinogen Normal mg/dL (Negative) Urine Leukocyte Esterase 2+ /uL (Negative) Urine RBC 896 /hpf (0 - 3) Urine Microscopic WBC 37 /HPF (0-3) H Urine Squamous Epithelial Cells Few /hpf (<5) Urine Bacteria None seen /hpf (None Seen) Urine Sperm Present /hpf (None Seen) Urine Glucose 1+ mg/dL (Normal) H Urine Creatinine 35.89 mg/dL (30.0-125.0) Urine Protein/Creatinine Ratio 30.21 Urine Sodium 95 mmol/L (40-220) Urine Total Protein 1084.4 mg/dL (1-14) H Blood Gas Results Test 03/20/25 22:55 03/21/25 12:04 Arterial Blood pH 7.373 (7.350-7.450) 7.357 (7.350-7.450) FiO2 % 60.0 100.0 Microbiology Microbiology Date/Time Source Procedure Growth Status 03/20/25 15:03 Blood Blood Culture - Preliminary Resulted 03/19/25 23:20 Nose MRSA Screen - Final Methicillin Resistant S.aureus Complete Labs and/or images reviewed: Labs reviewed by me, Image(s) reviewed by me Assessment/Plan Assessment/Plan -septic shock -acute hypoxic respiratory failure status post intubation, on vent -acute on chronic systolic and diastolic heart failure -right pleural effusion -acute kidney injury -chronic kidney disease stage IIIB/four -PE ruled out -history of polysubstance abuse -thrombocytopenia -metabolic encephalopathy Plan: Events: Status post intubation this morning because the patient can not keep airway open Patient with worsening clinical status. Continues to have poor urine output. Olsen catheter has not been placed by nursing staff as ordered. Attempted to place Olsen catheter now. Not able to take pills at this time given encephalopathy. -check ammonia level -potassium lowering : D50 with insulin -continue vasopressor therapy -antibiotic therapy: Cefepime, Zyvox -continue hydrocortisone -blood and urine culture: Preliminary blood culture positive for Gram-positive cocci -echocardiogram pending -bronchodilators -PPI -nephrology and cardiology consultation -repeat labs in a.m. - Devante cath placed. Hemodialysis today Critical care time spent 40 minutes. This does not include time spent performing procedures. This medical document was created using an electronic medical record system with [employer] direct computerized dictation system. Although this document has been carefully reviewed, there may still be some phonetic and typographical errors. These areas are purely typographical due to imperfections of the software programs, and do not reflect any compromise in the patient's medical care. Plan discussed with: Other (RN) Date of Service: Mar 21, 2025 Billing Provider: EDVIN BAH MD Common Visit Codes: [id number] CARE 30-74 MIN EDVIN BAH MD Mar 21, 2025 14:32
[2025-03-21] MEDS: SODIUM CHL 0.9% 1000 ML BAG XX ONE (21:19)
[2025-03-21] MEDS: ATORVASTATIN 20 MG TAB GT SCH (22:02)
[2025-03-21] MEDS: APIXABAN 5 MG TAB GT SCH (22:03)
--- NOTE | 2025-03-21 23:24 | DVHPN2 ---
Consult Progress Note Subjective Patient reports: Other (intubated) Review of Systems: Not Done (Sedated and intubated) Other Systems: Patient was seen and evaluated in follow up in the ICU. Patient is intubated and sedated on ventilator. 60% FiO2. WBC 25.8, NA 126, K 5.5, CL 88, BUN 100, ORTHOPHOTO TECH/DRAFTSMAN 4.40, AST 95, ALT 55. Chest x-ray shows bibasilar airspace disease and pleural effusions are unimproved from earlier film 1052 a.m. Objective vital signs Vital Sign Date Time Temp Pulse Resp B/P (MAP) Pulse Ox O2 Delivery O2 Flow Rate FiO2 03/21/25 16:06 103 24 100/70 (80) 100 60 03/21/25 14:00 Oxymizer 10 03/21/25 12:00 96.5 96.5 Total Intake and Output 03/20/25 03/20/25 03/21/25 15:00 23:00 07:00 Intake Total 762.252 ml 970.852 ml 1097.315 ml Output Total 15 ml 25 ml Balance 762.252 ml 955.852 ml 1072.315 ml medications Current Medications Medications Dose Ordered Sig/Zainab Route Start Time Stop Time Status Last Admin Dose Admin Aspirin 162 mg DAILY PO 03/19/25 10:00 03/21/25 09:31 162 MG Apixaban 5 mg BID PO 03/18/25 22:00 03/21/25 09:31 5 MG Atorvastatin Calcium 40 mg HS PO 03/18/25 22:00 03/20/25 21:14 40 MG Acetaminophen/ Hydrocodone Bitart 1 tab Q4HP PRN PO 03/18/25 19:15 03/20/25 22:30 1 TAB Ondansetron HCl 4 mg Q4HP PRN IV 03/18/25 19:15 Acetaminophen 650 mg Q6HP PRN PO 03/18/25 19:15 Nitroglycerin 0.4 mg Q5MINP PRN SL 03/18/25 19:15 Morphine Sulfate 2 mg Q30M PRN IV 03/18/25 19:15 Phenylephrine HCl 80 mg/Sodium Chloride 250 ml @ 7.5 mls/hr Q24H IV 03/19/25 09:15 03/21/25 14:45 24.375 MLS/HR Norepinephrine Bitartrate 32 mg/ Sodium Chloride 250 ml @ 0.938 mls/ hr Q24H IV 03/19/25 09:15 03/21/25 05:05 5.625 MLS/HR Vasopressin 20 units/Sodium Chloride 100 ml @ 9 mls/hr Q11H7M IV 03/19/25 09:15 Hydrocortisone Sodium Succinate 100 mg Q12HR IV 03/19/25 10:00 03/21/25 09:31 100 MG Meropenem 50 ml @ 17 mls/hr DAILY IV 03/19/25 10:00 UNV Daptomycin / Sodium Chloride 50 ml @ 100 mls/hr DAILY IV 03/19/25 10:00 UNV Sodium Chloride 10 ml QSHIFT@10,22 IV 03/19/25 10:00 03/21/25 09:31 10 ML Digoxin 0.125 mg EOD PO 03/20/25 10:00 Linezolid 300 ml @ 150 mls/hr Q12HR IV 03/19/25 22:00 03/21/25 09:31 150 MLS/HR Metolazone 5 mg DAILY PO 03/20/25 10:00 Bumetanide 25 mg/ Miscellaneous 100 ml @ 4 mls/hr Q24H IV 03/20/25 08:30 03/21/25 04:56 4 MLS/HR Meropenem 50 ml @ 16.7 mls/hr Q12H IV 03/20/25 14:00 03/21/25 14:49 16.7 MLS/HR Propofol 100 ml @ 2.721 mls/ hr Q24H IV 03/21/25 11:15 03/21/25 10:42 2.721 MLS/HR Midazolam HCl 100 ml @ 1 mls/hr Q24H IV 03/21/25 11:15 03/21/25 10:42 1 MLS/HR Fentanyl Citrate 250 ml @ 2.5 mls/hr Q24H IV 03/21/25 11:15 03/21/25 10:42 2.5 MLS/HR Examination: GENERAL:Normal (Intubated on vent), HEENT:Normal, LUNGS:Abnormal (decreased breath sounds), CVS:Abnormal (atrial fibrillation with RVR), NEURO:Abnormal (sedated ) laboratory and microbiology Laboratory Tests 03/21/25 03:10 Test 03/21/25 03:10 Range/Units Serum Glucose 157 H 74-106 mg/dL Problem List/Assessment/Plan Problem List/Assessment/Plan Problem List Septic Shock likely secondary to pneumonia with gram-positive bacteremia. Acute on Chronic Hypoxic Respiratory Failure from pneumonia + pleural effusion. Gram-positive bacteremia. Acute Kidney Injury on CKD. 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 Atrial fibrillation with RVR (improved). Chronic Hyponatremia. Cirrhosis with ascites. Assessment/Plan Continued all current supportive medical care. Patient has been seen by Simon Bolton MINERAL ENGINEER on my behalf, him and I discussed the plan with the patient. Continue IV antibiotics. Vasopressors for hemodynamic support. Pending repeat ECHO. Avoid nephrotoxins. Strict I/O, daily weights. Continue gentle diuresis only if volume overloaded. GDMT held due to hypotension and ROBERTO. Hold ACEi/ARB/ARNI, MRA, SGLT2i. Continue apixaban. Continue digoxin every other day. No need of dig levels. Trend LFTs, INR. Poor overall prognosis. Additional plan as per the hospital course. Plan discussed with: Other Dietary Evaluation Review Comments: Nutrition Recommendation: 1) EN Nepro Carbsteady @ 45ml/hr x 24hr (goal) along with Pro-stat 1 pk BID. TF at goal volume along with Pro-stat provide 2144 kcal (100%), 118 gm protein (100%), and 785 ml free water. 2) Consider TPN/PN if NPO>7 days 3) Monitor NPO status, lab values, weight trend, and I/O Expected Outcomes/Goals: Intake to meet >75% estimated needs Lab values to improve FU 2-3 days Date of Service: Mar 21, 2025 Billing Provider: MARTIN BLANCA MD Cardiology Common Codes: [id number] HOSP CARE(High, [id number] CARE 30-74 MIN MARTIN BLANCA MD Mar 21, 2025 17:28
[2025-03-22] VITALS (103 sets, daily range): BP systolic 88–117; BP diastolic 55–80; PULSE 77–109; RESP 20–27; TEMP 96.6–98.4; O2SAT 97–100
[2025-03-22 04:36] LABS: Hemoglobin 10.6 g/dL (13.5-17.5); Mean Corpuscular Hemoglobin 23.7 pg (28.0-32.0)
[2025-03-22 04:38] LABS: Hematocrit 33.0 % (41.0-53.0); Mean Corpuscular Volume 74.1 fL (80.0-100.0); Nucleated Red Blood Cells % 0.2 %
[2025-03-22 04:56] LABS: Alanine Aminotransferase 42 U/L (7-40); Albumin 3.2 g/dL (3.2-4.8); Alkaline Phosphatase 170 U/L (46-116); Anion Gap 15 (5-15); BUN/Creatinine Ratio 20.7 (10.0-20.0); Bilirubin, Total 6.4 mg/dL (0.2-1.0); Calcium 7.8 mg/dL (8.7-10.4); Carbon Dioxide 24 mmol/L (20-31); Chloride 95 mmol/L (98-107); Glucose 126 mg/dL (74-106); Potassium 4.6 mmol/L (3.5-5.1); Sodium 134 mmol/L (136-145); Total Protein 5.6 g/dL (5.7-8.2)
[2025-03-22 04:57] LABS: Blood Urea Nitrogen 82 mg/dL (9-23)
--- NOTE | 2025-03-22 05:47 | DVH ---
MEDICAL RECORDS NUMBER: [id number] PROCEDURE: XY CHEST PORTABLE DATE: 03/22/2025 05:15 AM HISTORY: Intubated Views:1 COMPARISON: XY CHEST PORTABLE on DOS: 03/21/25, XY CHEST XRAY 1 VIEW on DOS: 03/21/25, XY CHEST PORTABLE on DOS: 03/21/25, XY CHEST PORTABLE on DOS: 03/20/25, XY CHEST PORTABLE on DOS: 03/19/25 FINDINGS/IMPRESSION: Lungs: Extensive bibasilar infiltrate and atelectasis evident. Pleural fluid is suspected in the bases. Mediastinum: Mediastinal structures appear unremarkable.A endotracheal tube is seen with the tip projecting approximately 2 cm above the ramses.A right-sided jugular line is seen. The tip projects over the superior vena cava. No pneumothorax is seen. Right-sided PICC line is suspected with the tip projecting over the right atrium Skeletal: The skeletal structures appear unremarkable.
[2025-03-22 06:44] LABS: Base Excess -1.1 mmol/L (-2.0-3.0)
--- NOTE | 2025-03-22 09:51 | DVHPN2 ---
Consult Progress Note Subjective Review of Systems: Not Done (intubated and sedated) Objective vital signs Vital Sign Date Time Temp Pulse Resp B/P (MAP) Pulse Ox O2 Delivery O2 Flow Rate FiO2 03/22/25 07:45 88 27 114/72 (86) 100 30 03/22/25 06:45 97.5 207.5 03/22/25 06:00 Mechanical Ventilator+ 03/21/25 16:00 10 Total Intake and Output 03/21/25 03/21/25 03/22/25 15:00 23:00 07:00 Intake Total 588.08463 ml 774.702 ml 555.7 ml Output Total 100 ml 500 ml Balance 588.69386 ml 674.702 ml 55.7 ml medications Current Medications Medications Dose Ordered Sig/Zainab Route Start Time Stop Time Status Last Admin Dose Admin Acetaminophen/ Hydrocodone Bitart 1 tab Q4HP PRN PO 03/18/25 19:15 03/20/25 22:30 1 TAB Ondansetron HCl 4 mg Q4HP PRN IV 03/18/25 19:15 Acetaminophen 650 mg Q6HP PRN PO 03/18/25 19:15 Nitroglycerin 0.4 mg Q5MINP PRN SL 03/18/25 19:15 Morphine Sulfate 2 mg Q30M PRN IV 03/18/25 19:15 Phenylephrine HCl 80 mg/Sodium Chloride 250 ml @ 7.5 mls/hr Q24H IV 03/19/25 09:15 03/22/25 00:43 24.375 MLS/HR Norepinephrine Bitartrate 32 mg/ Sodium Chloride 250 ml @ 0.938 mls/ hr Q24H IV 03/19/25 09:15 03/21/25 05:05 5.625 MLS/HR Vasopressin 20 units/Sodium Chloride 100 ml @ 9 mls/hr Q11H7M IV 03/19/25 09:15 Hydrocortisone Sodium Succinate 100 mg Q12HR IV 03/19/25 10:00 03/21/25 22:02 100 MG Meropenem 50 ml @ 17 mls/hr DAILY IV 03/19/25 10:00 UNV Daptomycin / Sodium Chloride 50 ml @ 100 mls/hr DAILY IV 03/19/25 10:00 UNV Sodium Chloride 10 ml QSHIFT@ IV 03/19/25 10:00 03/21/25 22:03 10 ML Linezolid 300 ml @ 150 mls/hr Q12HR IV 03/19/25 22:00 03/21/25 22:03 150 MLS/HR Bumetanide 25 mg/ Miscellaneous 100 ml @ 4 mls/hr Q24H IV 03/20/25 08:30 03/22/25 00:45 4 MLS/HR Meropenem 50 ml @ 16.7 mls/hr Q12H IV 03/20/25 14:00 03/22/25 01:59 16.7 MLS/HR Propofol 100 ml @ 2.721 mls/ hr Q24H IV 03/21/25 11:15 03/22/25 00:42 8.163 MLS/HR Midazolam HCl 100 ml @ 1 mls/hr Q24H IV 03/21/25 11:15 03/21/25 10:42 1 MLS/HR Fentanyl Citrate 250 ml @ 2.5 mls/hr Q24H IV 03/21/25 11:15 03/21/25 10:42 2.5 MLS/HR Apixaban 5 mg BID GT 03/21/25 22:00 03/21/25 22:03 5 MG Aspirin 162 mg DAILY GT 03/22/25 10:00 Atorvastatin Calcium 40 mg HS GT 03/21/25 22:00 03/21/25 22:02 40 MG Metolazone 5 mg DAILY GT 03/22/25 10:00 Digoxin 125 mcg EOD IV 03/22/25 10:00 Examination: LUNGS:Abnormal (Intubated, FiO2 40%), CVS:Abnormal (Atrial Fibrillation, controlled at 89 bpm.) laboratory and microbiology Laboratory Tests 03/22/25 02:50 Test 03/22/25 02:50 Range/Units Serum Glucose 126 H 74-106 mg/dL Problem List/Assessment/Plan Problem List/Assessment/Plan Problem List/Assessment/Plan Problem List/Assessment/Plan Assessment & Plan 1. Septic Shock likely secondary to pneumonia with gram-positive bacteremia Febrile, hypotensive, WBC 28.9, lactate elevated, positive blood cultures (gram- positive cocci in clusters). Imaging showing pleural effusion with basilar opacity. On phenylephrine, and levophed. Continue IV meropenem + linezolid 03/20/25: Patient still on pressors, wbc trending high, right now on meropenem and linezolid, ECHO prelim read by Dr Washington showed an image that can be artifact vs intracavitary mass, per Dr Washington rescan is needed to clarify, new blood cultures are ordered, we will continue f/u 03/22/2025 No repeatt ECHO as noted as artifact. Intubated 03/21. currently on FiO2 40%. On vasopressor support. 2. Acute on Chronic Hypoxic Respiratory Failure from pneumonia + pleural effusion SOB with right pleural effusion and consolidation. On 40% FiO2, intubated. Sedated. Pulmonology on board. 3. Gram-positive bacteremia Continue daptomycin. Repeat blood cultures 2. Monitor for end-organ involvement. If persistent bacteremia, consider GELY. 03/20/25: Patient still on pressors, wbc trending high, right now on meropenem and linezolid, ECHO read by Dr Washington showed artifact no intracavitary mass. 4. Acute Kidney Injury on CKD Avoid nephrotoxins. Strict I/O, daily weights. Continue gentle diuresis only if volume overloaded. Nephrology consulted; follow recommendations. Renal-dose medications. 03/22/2025 Initiated on HD 03/21. 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 GDMT held due to hypotension and ROBERTO. Volume management with HD per nephrology. Hold ACEi/ARB/ARNI, MRA, SGLT2i. Continue apixaban. 6. Atrial fibrillation with RVR (improved) HR peaked at 151; improved with digoxin load. Continue digoxin every other day. No need of dig levels Continue apixaban, held this am due to significant oral bleeding. Telemetry monitoring. Better controlled. 7. Chronic Hyponatremia Na 123; suspected chronic given history and cirrhosis. Slow correction, Na goal 46 mEq/24 hrs. Nephrology following. Avoid over-diuresis. 8. Cirrhosis with ascites Seen on RUQ ultrasound. Trend LFTs, INR. Poor overall prognosis. Case discussed with Dr Washington Plan discussed with: Other (Case HERNANDEZ) Dietary Evaluation Review Comments: Nutrition Recommendation: 1) EN Nepro Carbsteady @ 45ml/hr x 24hr (goal) along with Pro-stat 1 pk BID. TF at goal volume along with Pro-stat provide 2144 kcal (100%), 118 gm protein (100%), and 785 ml free water. 2) Consider TPN/PN if NPO>7 days 3) Monitor NPO status, lab values, weight trend, and I/O Expected Outcomes/Goals: Intake to meet >75% estimated needs Lab values to improve FU 2-3 days Date of Service: Mar 22, 2025 Billing Provider: DEBORA OHARA Common Visit Codes: [id number] INP/OBS CARE(HIGH), [id number] CARE 30-74 MIN DEBORA OHARA Mar 22, 2025 09:51
[2025-03-22] MEDS: DIGOXIN (250MCG/ML) 2 ML AMPULE IV SCH (10:38)
--- NOTE | 2025-03-22 13:30 | ECG ---
[facility] Test Date: 2025-03-21 Test Time: 02:18:23 Pat Name: CARMEN BERNAL Department: Respiratoy Room: 0262 A Gender: M Supervisor [employer]: MANDY : 1965 Requested By: SUMAN MCKEON Order Number: [id number] Reading MD: Shad Washington Measurements Intervals [place] Rate: 145 P: 0 UT: 0 QRS: 53 QRSD: 107 T: 15 QT: 302 QTc: 469 Interpretive Statements Atrial fibrillation Low voltage, extremity leads RSR' in V1 or V2, probably normal variant Consider anterior infarct Minimal ST elevation, lateral leads Baseline wander in lead(s) V5,V6 Electronically Signed On 03-24-2025 17:17:17 PST by Shad Washington Please click the below link to view image of tracing.
--- NOTE | 2025-03-22 15:17 | DVHPN2 ---
Subjective The patient is seen and examined at bedside. The patient just get intubated early today. Remained on vent Reviewed: Care Plan, H&P, Labs, Medications, Previous Orders Changes from previous H/P or p: No Changes General: Per HPI Objective Vitals Vital Signs Date Time Temp Pulse Resp B/P (MAP) Pulse Ox O2 Delivery O2 Flow Rate FiO2 03/22/25 14:00 24 100 Mechanical Ventilator+ 30 30 03/22/25 13:33 88 112/75 (87) 03/22/25 06:45 97.5 207.5 03/21/25 16:00 10 Intake/Output Intake and Output 03/22/25 07:00 Intake Total 1918.03747 ml Output Total 600 ml Balance 1318.15605 ml Intake Oral 310 ml IV Total 1608.82078 ml Output Urine Total 600 ml General Appearance: Other (Intubated, on vent) HEENT: Atraumatic, PERRLA Lungs: Clear to auscultation, Normal air movement Cardiovascular: Normal S1, Normal S2 Abdomen: Normal bowel sounds, Soft, No tenderness, No hepatospenomegaly, No masses Neuro: Other (Intubated, on vent, unable to exam) Skin: Dry, Intact Psych/Mental Status: Other (Intubated, on vent, unable to exam) Medications Current Medications Medications Dose Ordered Sig/Zainab Route Start Time Stop Time Status Last Admin Dose Admin Acetaminophen/ Hydrocodone Bitart 1 tab Q4HP PRN PO 03/18/25 19:15 03/20/25 22:30 1 TAB Ondansetron HCl 4 mg Q4HP PRN IV 03/18/25 19:15 Acetaminophen 650 mg Q6HP PRN PO 03/18/25 19:15 Nitroglycerin 0.4 mg Q5MINP PRN SL 03/18/25 19:15 Morphine Sulfate 2 mg Q30M PRN IV 03/18/25 19:15 Phenylephrine HCl 80 mg/Sodium Chloride 250 ml @ 7.5 mls/hr Q24H IV 03/19/25 09:15 03/22/25 00:43 24.375 MLS/HR Norepinephrine Bitartrate 32 mg/ Sodium Chloride 250 ml @ 0.938 mls/ hr Q24H IV 03/19/25 09:15 03/21/25 05:05 5.625 MLS/HR Vasopressin 20 units/Sodium Chloride 100 ml @ 9 mls/hr Q11H7M IV 03/19/25 09:15 Hydrocortisone Sodium Succinate 100 mg Q12HR IV 03/19/25 10:00 03/22/25 10:37 100 MG Meropenem 50 ml @ 17 mls/hr DAILY IV 03/19/25 10:00 UNV Daptomycin / Sodium Chloride 50 ml @ 100 mls/hr DAILY IV 03/19/25 10:00 UNV Sodium Chloride 10 ml QSHIFT@, IV 03/19/25 10:00 03/22/25 10:39 10 ML Linezolid 300 ml @ 150 mls/hr Q12HR IV 03/19/25 22:00 03/22/25 10:37 150 MLS/HR Bumetanide 25 mg/ Miscellaneous 100 ml @ 4 mls/hr Q24H IV 03/20/25 08:30 03/22/25 00:45 4 MLS/HR Meropenem 50 ml @ 16.7 mls/hr Q12H IV 03/20/25 14:00 03/22/25 14:57 16.7 MLS/HR Propofol 100 ml @ 2.721 mls/ hr Q24H IV 03/21/25 11:15 03/22/25 00:42 8.163 MLS/HR Midazolam HCl 100 ml @ 1 mls/hr Q24H IV 03/21/25 11:15 03/21/25 10:42 1 MLS/HR Fentanyl Citrate 250 ml @ 2.5 mls/hr Q24H IV 03/21/25 11:15 03/21/25 10:42 2.5 MLS/HR Apixaban 5 mg BID GT 03/21/25 22:00 03/21/25 22:03 5 MG Atorvastatin Calcium 40 mg HS GT 03/21/25 22:00 03/21/25 22:02 40 MG Metolazone 5 mg DAILY GT 03/22/25 10:00 03/22/25 10:38 5 MG Digoxin 125 mcg EOD IV 03/22/25 10:00 Aspirin 81 mg DAILY GT 03/22/25 10:45 03/22/25 11:05 81 MG Laboratory Results Laboratory Tests 03/22/25 02:50 Chemistry Test 03/22/25 02:50 Albumin 3.2 g/dL (3.2-4.8) Calcium Level 7.8 mg/dL (8.7-10.4) L Total Protein 5.6 g/dL (5.7-8.2) L LFT Test 03/22/25 02:50 Alanine Aminotransferase (ALT) 42 U/L (7-40) H Alkaline Phosphatase 170 U/L (46-116) H Aspartate Amino Transferase (AST) 68 U/L (13-40) H Total Bilirubin 6.4 mg/dL (0.2-1.0) H Urinalysis Test 03/21/25 00:00 03/21/25 03:10 Urine Color Dark-yellow (Yellow) Urine Clarity Turbid (Clear) H Urine pH 6.0 (5.0-9.0) Urine Specific [place] 1.014 (1.001-1.035) Urine Protein 2+ (Negative) H Urine Ketones Negative (Negative) Urine Blood 3+ /uL (Negative) H Urine Nitrite Negative (Negative) Urine Bilirubin 1+ (Negative) Urine Urobilinogen Normal mg/dL (Negative) Urine Leukocyte Esterase 2+ /uL (Negative) Urine RBC 896 /hpf (0 - 3) Urine Microscopic WBC 37 /HPF (0-3) H Urine Squamous Epithelial Cells Few /hpf (<5) Urine Bacteria None seen /hpf (None Seen) Urine Sperm Present /hpf (None Seen) Urine Glucose 1+ mg/dL (Normal) H Urine Creatinine 35.89 mg/dL (30.0-125.0) Urine Protein/Creatinine Ratio 30.21 Urine Sodium 95 mmol/L (40-220) Urine Total Protein 1084.4 mg/dL (1-14) H Blood Gas Results Test 03/22/25 06:11 Arterial Blood pH 7.389 (7.350-7.450) FiO2 % 40.0 Microbiology Microbiology Date/Time Source Procedure Growth Status 03/21/25 11:31 Sputum Gram Stain Pending Resulted 03/21/25 11:31 Sputum Respiratory Culture - Preliminary Resulted 03/21/25 02:30 Urine - [place] Urine Culture - Preliminary No growth Resulted 03/20/25 15:03 Blood Blood Culture - Preliminary Methicillin Resistant S.aureus Resulted 03/19/25 23:20 Nose MRSA Screen - Final Methicillin Resistant S.aureus Complete Assessment/Plan Assessment/Plan -septic shock -acute hypoxic respiratory failure status post intubation, on vent -acute on chronic systolic and diastolic heart failure -right pleural effusion -acute kidney injury -chronic kidney disease stage IIIB/four -PE ruled out -history of polysubstance abuse -thrombocytopenia -metabolic encephalopathy Plan: Events: Status post intubation this morning because the patient can not keep airway open Patient with worsening clinical status. Continues to have poor urine output. Olsen catheter has not been placed by nursing staff as ordered. Attempted to place Olsen catheter now. Not able to take pills at this time given encephalopathy. -check ammonia level -potassium lowering : D50 with insulin -continue vasopressor therapy -antibiotic therapy: Cefepime, Zyvox -continue hydrocortisone -blood and urine culture: Preliminary blood culture positive for Gram-positive cocci -echocardiogram pending -bronchodilators -PPI -nephrology and cardiology consultation -repeat labs in a.m. - Devante cath placed. Hemodialysis today Critical care time spent 40 minutes. This does not include time spent performing procedures. This medical document was created using an electronic medical record system with [employer] computerized dictation system. Although this document has been carefully reviewed, there may still be some phonetic and typographical errors. These areas are purely typographical due to imperfections of the software programs, and do not reflect any compromise in the patient's medical care. Plan discussed with: Patient My Orders Orders - EDVIN BAH MD Procedure Category Date Status Time Apixaban (Eliquis) PHA 03/21/25 In Process 22:00 Atorvastatin (Lipitor) PHA 03/21/25 In Process 22:00 Metolazone (Zaroxolyn) PHA 03/22/25 In Process 10:00 Digoxin Injection PHA 03/22/25 In Process (Lanoxin Injection) 10:00 Place Og Tube ORDERS 03/21/25 Transmitted 18:28 * Dietary Consult CONS 03/22/25 Transmitted 10:24 * Wound Consult CONS 03/22/25 Transmitted Date of Service: Mar 22, 2025 Billing Provider: EDVIN BAH MD Common Visit Codes: [id number] CARE 30-74 MIN EDVIN BAH MD Mar 22, 2025 15:17
--- NOTE | 2025-03-22 17:46 | DVHPN2 ---
Progress Note - Dictate Date Seen: Mar 22, 2025 Has the PT tested + for MRSA If YES, has PT been informed?: No Medical Necessity Reason Pt with a Central, PICC or Fol: Yes The following are medically ne: Central Line vital signs Vital Sign Date Time Temp Pulse Resp B/P (MAP) Pulse Ox O2 Delivery O2 Flow Rate FiO2 03/22/25 17:15 97.2 83 24 104/71 (82) 99 207.0 03/22/25 16:00 Mechanical Ventilator+ 30 30 03/21/25 16:00 10 Total Intake and Output 03/21/25 03/21/25 03/22/25 15:00 23:00 07:00 Intake Total 588.78322 ml 774.702 ml 555.7 ml Output Total 100 ml 500 ml Balance 588.12655 ml 674.702 ml 55.7 ml medications Current Medications Medications Dose Ordered Sig/Zainab Route Start Time Stop Time Status Last Admin Dose Admin Acetaminophen/ Hydrocodone Bitart 1 tab Q4HP PRN PO 03/18/25 19:15 03/20/25 22:30 1 TAB Ondansetron HCl 4 mg Q4HP PRN IV 03/18/25 19:15 Acetaminophen 650 mg Q6HP PRN PO 03/18/25 19:15 Nitroglycerin 0.4 mg Q5MINP PRN SL 03/18/25 19:15 Morphine Sulfate 2 mg Q30M PRN IV 03/18/25 19:15 Phenylephrine HCl 80 mg/Sodium Chloride 250 ml @ 7.5 mls/hr Q24H IV 03/19/25 09:15 03/22/25 00:43 24.375 MLS/HR Norepinephrine Bitartrate 32 mg/ Sodium Chloride 250 ml @ 0.938 mls/ hr Q24H IV 03/19/25 09:15 03/21/25 05:05 5.625 MLS/HR Vasopressin 20 units/Sodium Chloride 100 ml @ 9 mls/hr Q11H7M IV 03/19/25 09:15 Hydrocortisone Sodium Succinate 100 mg Q12HR IV 03/19/25 10:00 03/22/25 10:37 100 MG Meropenem 50 ml @ 17 mls/hr DAILY IV 03/19/25 10:00 UNV Daptomycin / Sodium Chloride 50 ml @ 100 mls/hr DAILY IV 03/19/25 10:00 UNV Sodium Chloride 10 ml QSHIFT@10,22 IV 03/19/25 10:00 03/22/25 10:39 10 ML Linezolid 300 ml @ 150 mls/hr Q12HR IV 03/19/25 22:00 03/22/25 10:37 150 MLS/HR Bumetanide 25 mg/ Miscellaneous 100 ml @ 4 mls/hr Q24H IV 03/20/25 08:30 03/22/25 00:45 4 MLS/HR Meropenem 50 ml @ 16.7 mls/hr Q12H IV 03/20/25 14:00 03/22/25 14:57 16.7 MLS/HR Propofol 100 ml @ 2.721 mls/ hr Q24H IV 03/21/25 11:15 03/22/25 00:42 8.163 MLS/HR Midazolam HCl 100 ml @ 1 mls/hr Q24H IV 03/21/25 11:15 03/21/25 10:42 1 MLS/HR Fentanyl Citrate 250 ml @ 2.5 mls/hr Q24H IV 03/21/25 11:15 03/21/25 10:42 2.5 MLS/HR Apixaban 5 mg BID GT 03/21/25 22:00 03/21/25 22:03 5 MG Atorvastatin Calcium 40 mg HS GT 03/21/25 22:00 03/21/25 22:02 40 MG Metolazone 5 mg DAILY GT 03/22/25 10:00 03/22/25 10:38 5 MG Digoxin 125 mcg EOD IV 03/22/25 10:00 Aspirin 81 mg DAILY GT 03/22/25 10:45 03/22/25 11:05 81 MG laboratory and microbiology Laboratory Tests 03/22/25 02:50 Test 03/22/25 02:50 Range/Units Serum Glucose 126 H 74-106 mg/dL Assessment/Plan 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 Impression Acute hypoxemic respiratory failure Hx of substance abuse Bacteremia ROBERTO Patient seen and examined in [facility] Events On mechanical ventilation S/p intubation PEEP 5, FiO2 40% Labs and imaging reviewed ABG reviewed Management Vent support Titrate to maintain sats 90% or above Sedation for vent synchrony Continue antibiotics F/u cultures and ID Bronchodilators Monitor renal function Monitor electrolytes Supplement as needed Pressors as needed for hemodynamic support To maintain a mean arterial pressure of 65 mmHg F/u cardiology DVT prophylaxis Critical care time 35 minutes Dietary Evaluation Review Comments: Nutrition Recommendation: 1) EN Nepro Carbsteady @ 45ml/hr x 24hr (goal) along with Pro-stat 1 pk BID. TF at goal volume along with Pro-stat provide 2144 kcal (100%), 118 gm protein (100%), and 785 ml free water. 2) Consider TPN/PN if NPO>7 days 3) Monitor NPO status, lab values, weight trend, and I/O Expected Outcomes/Goals: Intake to meet >75% estimated needs Lab values to improve FU 2-3 days Plan discussed with: Other (Rn) JESSICA RAYMUNDO MD Mar 22, 2025 17:46
--- NOTE | 2025-03-22 18:00 | DVHPN2 ---
Progress Note Date Seen: Mar 22, 2025 Has the PT tested + for MRSA If YES, has PT been informed?: No Medical Necessity Reason Pt with a Central, PICC or Fol: Yes The following are medically ne: Central Line Subjective Patient reports: Other Review of Systems: Deferred Objective vital signs Vital Sign Date Time Temp Pulse Resp B/P (MAP) Pulse Ox O2 Delivery O2 Flow Rate FiO2 03/22/25 17:15 97.2 83 24 104/71 (82) 99 207.0 03/22/25 16:00 Mechanical Ventilator+ 30 30 03/21/25 16:00 10 Total Intake and Output 03/21/25 03/21/25 03/22/25 15:00 23:00 07:00 Intake Total 588.58706 ml 774.702 ml 555.7 ml Output Total 100 ml 500 ml Balance 588.94483 ml 674.702 ml 55.7 ml medications Current Medications Medications Dose Ordered Sig/Zainab Route Start Time Stop Time Status Last Admin Dose Admin Acetaminophen/ Hydrocodone Bitart 1 tab Q4HP PRN PO 03/18/25 19:15 03/20/25 22:30 1 TAB Ondansetron HCl 4 mg Q4HP PRN IV 03/18/25 19:15 Acetaminophen 650 mg Q6HP PRN PO 03/18/25 19:15 Nitroglycerin 0.4 mg Q5MINP PRN SL 03/18/25 19:15 Morphine Sulfate 2 mg Q30M PRN IV 03/18/25 19:15 Phenylephrine HCl 80 mg/Sodium Chloride 250 ml @ 7.5 mls/hr Q24H IV 03/19/25 09:15 03/22/25 00:43 24.375 MLS/HR Norepinephrine Bitartrate 32 mg/ Sodium Chloride 250 ml @ 0.938 mls/ hr Q24H IV 03/19/25 09:15 03/21/25 05:05 5.625 MLS/HR Vasopressin 20 units/Sodium Chloride 100 ml @ 9 mls/hr Q11H7M IV 03/19/25 09:15 Hydrocortisone Sodium Succinate 100 mg Q12HR IV 03/19/25 10:00 03/22/25 10:37 100 MG Meropenem 50 ml @ 17 mls/hr DAILY IV 03/19/25 10:00 UNV Daptomycin / Sodium Chloride 50 ml @ 100 mls/hr DAILY IV 03/19/25 10:00 UNV Sodium Chloride 10 ml QSHIFT@10,22 IV 03/19/25 10:00 03/22/25 10:39 10 ML Linezolid 300 ml @ 150 mls/hr Q12HR IV 03/19/25 22:00 03/22/25 10:37 150 MLS/HR Bumetanide 25 mg/ Miscellaneous 100 ml @ 4 mls/hr Q24H IV 03/20/25 08:30 03/22/25 00:45 4 MLS/HR Meropenem 50 ml @ 16.7 mls/hr Q12H IV 03/20/25 14:00 03/22/25 14:57 16.7 MLS/HR Propofol 100 ml @ 2.721 mls/ hr Q24H IV 03/21/25 11:15 03/22/25 00:42 8.163 MLS/HR Midazolam HCl 100 ml @ 1 mls/hr Q24H IV 03/21/25 11:15 03/21/25 10:42 1 MLS/HR Fentanyl Citrate 250 ml @ 2.5 mls/hr Q24H IV 03/21/25 11:15 03/21/25 10:42 2.5 MLS/HR Apixaban 5 mg BID GT 03/21/25 22:00 03/21/25 22:03 5 MG Atorvastatin Calcium 40 mg HS GT 03/21/25 22:00 03/21/25 22:02 40 MG Metolazone 5 mg DAILY GT 03/22/25 10:00 03/22/25 10:38 5 MG Digoxin 125 mcg EOD IV 03/22/25 10:00 Aspirin 81 mg DAILY GT 03/22/25 10:45 03/22/25 11:05 81 MG Examination: LUNGS:Abnormal, MSK:Abnormal, NEURO:Abnormal laboratory and microbiology Laboratory Tests 03/22/25 02:50 Test 03/22/25 02:50 Range/Units Serum Glucose 126 H 74-106 mg/dL Microbiology Date/Time Source Procedure Growth Status 03/21/25 11:31 Sputum Gram Stain Pending Resulted 03/21/25 11:31 Sputum Respiratory Culture - Preliminary Resulted 03/21/25 02:30 Urine - [place] Urine Culture - Preliminary No growth Resulted 03/20/25 15:03 Blood Blood Culture - Preliminary Methicillin Resistant S.aureus Resulted 03/19/25 23:20 Nose MRSA Screen - Final Methicillin Resistant S.aureus Complete Problem List/Assessment/Plan Problem List/Assessment/Plan This is a 59-year-old male with past medical history of heart failure (HFrEF, methamphetamine induced, EF 15%), permanent AFib (on Eliquis), BPH, recurrent right-sided pleural effusion/thoracentesis, hypertension and dyslipidemia came to the hospital due to shortness of breath since 3 days. Nephrology is consulted due to raised creatinine. ROBERTO, on CKD 2, due to septic/cardiogenic shock VDRF intubated 03/21 Hyponatremia, likely due to advanced heart failure Hypokalemia Septic shock Acute on chronic systolic heart failure NSTEMI AFib, with a RVR Hypertension Dyslipidemia Cirrhosis Plan/recommendation: no response to bumex drip recommend HD had treatments 03/21 and 03/22 s/p leisa cath intubated Plan discussed with: Other My Orders My Orders Orders - SURENDRA BANERJEE MD Procedure Category Date Status Time Hemodialysis Orders ORDERS 03/22/25 Transmitted 04:00 Dietary Evaluation Review Comments: Nutrition Recommendation: 1) EN Nepro Carbsteady @ 45ml/hr x 24hr (goal) along with Pro-stat 1 pk BID. TF at goal volume along with Pro-stat provide 2144 kcal (100%), 118 gm protein (100%), and 785 ml free water. 2) Consider TPN/PN if NPO>7 days 3) Monitor NPO status, lab values, weight trend, and I/O Expected Outcomes/Goals: Intake to meet >75% estimated needs Lab values to improve FU 2-3 days SURENDRA BANERJEE MD Mar 22, 2025 18:00
--- NOTE | 2025-03-22 21:50 | DVHPN2 ---
Consult Progress Note Subjective Review of Systems: Not Done (intubated and sedated) Other Systems: Patient was seen and evaluated in follow up in the ICU. Patient is intubated and sedated on ventilator. 30% FiO2. WBC 16.8, HCT 33, BUN 82, GENERAL [employer]ODUCTION [employer]ORER 3.96, AST 68, ALT 42. Chest x-ray shows extensive bibasilar infiltrate and atelectasis evident. Pleural fluid is suspected in the bases. Objective vital signs Vital Sign Date Time Temp Pulse Resp B/P (MAP) Pulse Ox O2 Delivery O2 Flow Rate FiO2 03/22/25 14:00 24 100 Mechanical Ventilator+ 30 30 03/22/25 13:33 88 112/75 (87) 03/22/25 11:45 98.1 208.6 03/21/25 16:00 10 Total Intake and Output 03/21/25 03/21/25 03/22/25 15:00 23:00 07:00 Intake Total 588.72521 ml 774.702 ml 555.7 ml Output Total 100 ml 500 ml Balance 588.34124 ml 674.702 ml 55.7 ml medications Current Medications Medications Dose Ordered Sig/Zainab Route Start Time Stop Time Status Last Admin Dose Admin Acetaminophen/ Hydrocodone Bitart 1 tab Q4HP PRN PO 03/18/25 19:15 03/20/25 22:30 1 TAB Ondansetron HCl 4 mg Q4HP PRN IV 03/18/25 19:15 Acetaminophen 650 mg Q6HP PRN PO 03/18/25 19:15 Nitroglycerin 0.4 mg Q5MINP PRN SL 03/18/25 19:15 Morphine Sulfate 2 mg Q30M PRN IV 03/18/25 19:15 Phenylephrine HCl 80 mg/Sodium Chloride 250 ml @ 7.5 mls/hr Q24H IV 03/19/25 09:15 03/22/25 00:43 24.375 MLS/HR Norepinephrine Bitartrate 32 mg/ Sodium Chloride 250 ml @ 0.938 mls/ hr Q24H IV 03/19/25 09:15 03/21/25 05:05 5.625 MLS/HR Vasopressin 20 units/Sodium Chloride 100 ml @ 9 mls/hr Q11H7M IV 03/19/25 09:15 Hydrocortisone Sodium Succinate 100 mg Q12HR IV 03/19/25 10:00 03/22/25 10:37 100 MG Meropenem 50 ml @ 17 mls/hr DAILY IV 03/19/25 10:00 UNV Daptomycin / Sodium Chloride 50 ml @ 100 mls/hr DAILY IV 03/19/25 10:00 UNV Sodium Chloride 10 ml QSHIFT@10,22 IV 03/19/25 10:00 03/22/25 10:39 10 ML Linezolid 300 ml @ 150 mls/hr Q12HR IV 03/19/25 22:00 03/22/25 10:37 150 MLS/HR Bumetanide 25 mg/ Miscellaneous 100 ml @ 4 mls/hr Q24H IV 03/20/25 08:30 03/22/25 00:45 4 MLS/HR Meropenem 50 ml @ 16.7 mls/hr Q12H IV 03/20/25 14:00 03/22/25 14:57 16.7 MLS/HR Propofol 100 ml @ 2.721 mls/ hr Q24H IV 03/21/25 11:15 03/22/25 00:42 8.163 MLS/HR Midazolam HCl 100 ml @ 1 mls/hr Q24H IV 03/21/25 11:15 03/21/25 10:42 1 MLS/HR Fentanyl Citrate 250 ml @ 2.5 mls/hr Q24H IV 03/21/25 11:15 03/21/25 10:42 2.5 MLS/HR Apixaban 5 mg BID GT 03/21/25 22:00 03/21/25 22:03 5 MG Atorvastatin Calcium 40 mg HS GT 03/21/25 22:00 03/21/25 22:02 40 MG Metolazone 5 mg DAILY GT 03/22/25 10:00 03/22/25 10:38 5 MG Digoxin 125 mcg EOD IV 03/22/25 10:00 Aspirin 81 mg DAILY GT 03/22/25 10:45 03/22/25 11:05 81 MG Examination: GENERAL:Abnormal ((intubated), HEENT:Normal, NECK:Normal, LUNGS:Abnormal (Intubated, FiO2 40%), CVS:Abnormal (Atrial Fibrillation, controlled at 89 bpm) laboratory and microbiology Laboratory Tests 03/22/25 02:50 Test 03/22/25 02:50 Range/Units Serum Glucose 126 H 74-106 mg/dL Problem List/Assessment/Plan Problem List/Assessment/Plan Problem List Septic Shock likely secondary to pneumonia with gram-positive bacteremia. Acute on Chronic Hypoxic Respiratory Failure from pneumonia + pleural effusion. Gram-positive bacteremia. Acute Kidney Injury on CKD. 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 Atrial fibrillation with RVR (improved). Chronic Hyponatremia. Cirrhosis with ascites. Assessment/Plan Continued all current supportive medical care. Patient has been seen by Simon Bolton LOCKER ROOM MANAGER on my behalf, him and I discussed the plan with the patient. Continue IV antibiotics. Vasopressors for hemodynamic support. Pending repeat ECHO. Avoid nephrotoxins. Strict I/O, daily weights. Continue gentle diuresis only if volume overloaded. GDMT held due to hypotension and ROBERTO. Hold ACEi/ARB/ARNI, MRA, SGLT2i. Continue apixaban. Continue digoxin every other day. No need of dig levels. Trend LFTs, INR. Poor overall prognosis. Additional plan as per the hospital course. Plan discussed with: Other Dietary Evaluation Review Comments: Nutrition Recommendation: 1) EN Nepro Carbsteady @ 45ml/hr x 24hr (goal) along with Pro-stat 1 pk BID. TF at goal volume along with Pro-stat provide 2144 kcal (100%), 118 gm protein (100%), and 785 ml free water. 2) Consider TPN/PN if NPO>7 days 3) Monitor NPO status, lab values, weight trend, and I/O Expected Outcomes/Goals: Intake to meet >75% estimated needs Lab values to improve FU 2-3 days Date of Service: Mar 22, 2025 Billing Provider: MARTIN BLANCA MD Common Visit Codes: [id number] INP/OBS CARE(HIGH), [id number] CARE 30-74 MIN MARTIN BLANCA MD Mar 22, 2025 15:25
[2025-03-23] VITALS (107 sets, daily range): BP systolic 78–116; BP diastolic 48–77; PULSE 62–94; RESP 14–28; TEMP 97.9–98.6; O2SAT 94–100
[2025-03-23 03:45] LABS: Hemoglobin 10.8 g/dL (13.5-17.5); Mean Corpuscular Hemoglobin 23.9 pg (28.0-32.0)
[2025-03-23 03:47] LABS: Hematocrit 33.4 % (41.0-53.0); Mean Corpuscular Volume 73.9 fL (80.0-100.0); Nucleated Red Blood Cells % 0.2 %
[2025-03-23 04:05] LABS: Alanine Aminotransferase 39 U/L (7-40); Albumin 3.2 g/dL (3.2-4.8); Anion Gap 15 (5-15); BUN/Creatinine Ratio 17.8 (10.0-20.0); Carbon Dioxide 26 mmol/L (20-31); Magnesium 2.5 mg/dL (1.6-2.6); Potassium 3.9 mmol/L (3.5-5.1); Sodium 138 mmol/L (136-145); Total Protein 5.7 g/dL (5.7-8.2)
[2025-03-23 04:06] LABS: Alkaline Phosphatase 177 U/L (46-116); Blood Urea Nitrogen 57 mg/dL (9-23); Calcium 7.7 mg/dL (8.7-10.4); Chloride 97 mmol/L (98-107); Glucose 129 mg/dL (74-106)
[2025-03-23 04:07] LABS: Bilirubin, Total 5.8 mg/dL (0.2-1.0)
--- NOTE | 2025-03-23 05:00 | DVH ---
CHEST RADIOGRAPH Indication: INTUBATED Technique: Single frontal view of the chest was obtained COMPARISON: XY CHEST PORTABLE on DOS: 03/22/25, XY CHEST PORTABLE on DOS: 03/21/25, XY CHEST XRAY 1 VIEW on DOS: 03/21/25, XY CHEST PORTABLE on DOS: 03/21/25, XY CHEST PORTABLE on DOS: 03/20/25 FINDINGS: Lines and Tubes: Endotracheal tube and enteric catheter in satisfactory position. Right central venous catheter in satisfactory position. Right PICC in satisfactory position. Lungs: Diffuse pulmonary vascular congestion. Aeration is slightly improved. Pleura: Small right and moderate left pleural effusions. No pneumothorax. Cardiomediastinal contours: Unremarkable Bones: Unremarkable IMPRESSION: Lines and tubes in satisfactory position. Slightly improved aeration.
[2025-03-23 07:55] LABS: Base Excess 2.3 mmol/L (-2.0-3.0)
--- NOTE | 2025-03-23 11:19 | DVHPN2 ---
Progress Note Date Seen: Mar 23, 2025 Has the PT tested + for MRSA If YES, has PT been informed?: No Medical Necessity Reason Pt with a Central, PICC or Fol: Yes The following are medically ne: Central Line (HD catheter), Olsen Catheter Subjective Review of Systems: Deferred Objective vital signs Vital Sign Date Time Temp Pulse Resp B/P (MAP) Pulse Ox O2 Delivery O2 Flow Rate FiO2 03/23/25 10:50 103/59 03/23/25 08:00 24 99 Mechanical Ventilator+ 30 30 03/23/25 08:00 81 03/23/25 06:45 98.2 208.8 03/21/25 16:00 10 Total Intake and Output 03/22/25 03/22/25 03/23/25 15:00 23:00 07:00 Intake Total 622.930 ml 368.244 ml 700.744 ml Output Total 950 ml 1200 ml Balance 622.930 ml -581.756 ml -499.256 ml medications Current Medications Medications Dose Ordered Sig/Zainab Route Start Time Stop Time Status Last Admin Dose Admin Acetaminophen/ Hydrocodone Bitart 1 tab Q4HP PRN PO 03/18/25 19:15 03/20/25 22:30 1 TAB Ondansetron HCl 4 mg Q4HP PRN IV 03/18/25 19:15 Acetaminophen 650 mg Q6HP PRN PO 03/18/25 19:15 Nitroglycerin 0.4 mg Q5MINP PRN SL 03/18/25 19:15 Morphine Sulfate 2 mg Q30M PRN IV 03/18/25 19:15 Phenylephrine HCl 80 mg/Sodium Chloride 250 ml @ 7.5 mls/hr Q24H IV 03/19/25 09:15 03/23/25 02:03 15 MLS/HR Norepinephrine Bitartrate 32 mg/ Sodium Chloride 250 ml @ 0.938 mls/ hr Q24H IV 03/19/25 09:15 03/21/25 05:05 5.625 MLS/HR Vasopressin 20 units/Sodium Chloride 100 ml @ 9 mls/hr Q11H7M IV 03/19/25 09:15 Hydrocortisone Sodium Succinate 100 mg Q12HR IV 03/19/25 10:00 03/23/25 10:50 100 MG Meropenem 50 ml @ 17 mls/hr DAILY IV 03/19/25 10:00 UNV Daptomycin / Sodium Chloride 50 ml @ 100 mls/hr DAILY IV 03/19/25 10:00 UNV Sodium Chloride 10 ml QSHIFT@10,22 IV 03/19/25 10:00 03/23/25 10:51 10 ML Linezolid 300 ml @ 150 mls/hr Q12HR IV 03/19/25 22:00 03/23/25 11:02 150 MLS/HR Bumetanide 25 mg/ Miscellaneous 100 ml @ 4 mls/hr Q24H IV 03/20/25 08:30 03/23/25 06:10 4 MLS/HR Meropenem 50 ml @ 16.7 mls/hr Q12H IV 03/20/25 14:00 03/23/25 02:00 16.7 MLS/HR Propofol 100 ml @ 2.721 mls/ hr Q24H IV 03/21/25 11:15 03/23/25 00:33 8.163 MLS/HR Midazolam HCl 100 ml @ 1 mls/hr Q24H IV 03/21/25 11:15 03/21/25 10:42 1 MLS/HR Fentanyl Citrate 250 ml @ 2.5 mls/hr Q24H IV 03/21/25 11:15 03/23/25 00:40 7.5 MLS/HR Apixaban 5 mg BID GT 03/21/25 22:00 03/21/25 22:03 5 MG Atorvastatin Calcium 40 mg HS GT 03/21/25 22:00 03/22/25 21:50 40 MG Metolazone 5 mg DAILY GT 03/22/25 10:00 03/23/25 10:50 5 MG Digoxin 125 mcg EOD IV 03/22/25 10:00 Aspirin 81 mg DAILY GT 03/22/25 10:45 03/22/25 11:05 81 MG Examination: GENERAL:Abnormal, LUNGS:Abnormal, CVS:Normal, SKIN:Normal laboratory and microbiology Laboratory Tests 03/23/25 02:52 Test 03/23/25 02:52 Range/Units Serum Glucose 129 H 74-106 mg/dL Microbiology Date/Time Source Procedure Growth Status 03/21/25 11:31 Sputum Gram Stain Pending Resulted 03/21/25 11:31 Sputum Respiratory Culture - Preliminary Resulted 03/21/25 02:30 Urine - Olsen Port Urine Culture - Final Complete 03/20/25 15:03 Blood Blood Culture - Final Methicillin Resistant S.aureus Complete 03/19/25 23:20 Nose MRSA Screen - Final Methicillin Resistant S.aureus Complete Problem List/Assessment/Plan Problem List/Assessment/Plan This is a 59-year-old male with past medical history of heart failure (HFrEF, methamphetamine induced, EF 15%), permanent AFib (on Eliquis), BPH, recurrent right-sided pleural effusion/thoracentesis, hypertension and dyslipidemia came to the hospital due to shortness of breath since 3 days. Nephrology is consulted due to raised creatinine. ROBERTO, on CKD 2, due to septic/cardiogenic shock-----> required acute Hd last 03/22 Acute respiratory failure intubated 03/21 Hyponatremia, likely due to advanced heart failure Septic shock, MRSA bacteremia Acute on chronic systolic heart failure NSTEMI AFib, with a RVR Hypertension Dyslipidemia Cirrhosis methamphetamine abuse Plan/recommendation: s/p leisa cath intubated uop 2L yesterday will hold HD today IV ABX on merrem and Zyvox strict I/O guarded prognosis repeat labs this evening Plan discussed with: Other Dietary Evaluation Review Comments: Nutrition Recommendation: 1) EN Nepro Carbsteady @ 45ml/hr x 24hr (goal) along with Pro-stat 1 pk BID. TF at goal volume along with Pro-stat provide 2144 kcal (100%), 118 gm protein (100%), and 785 ml free water. 2) Consider TPN/PN if NPO>7 days 3) Monitor NPO status, lab values, weight trend, and I/O Expected Outcomes/Goals: Intake to meet >75% estimated needs Lab values to improve FU 2-3 days FEDERICO HANSEN MD Mar 23, 2025 11:18
[2025-03-23] MEDS: BUMETANIDE INJECTION 25 MG in GIVE UN-DILUTED 0 ML IV SCH (11:30)
--- NOTE | 2025-03-23 11:33 | DVHPN2 ---
Consult Progress Note Date Seen: Mar 23, 2025 Subjective Other Systems: No overnight cardiac events reported. Reported oral bleed wth suction Objective vital signs Vital Sign Date Time Temp Pulse Resp B/P (MAP) Pulse Ox O2 Delivery O2 Flow Rate FiO2 03/23/25 10:50 103/59 03/23/25 08:00 24 99 Mechanical Ventilator+ 30 30 03/23/25 08:00 81 03/23/25 06:45 98.2 208.8 03/21/25 16:00 10 Total Intake and Output 03/22/25 03/22/25 03/23/25 14:59 22:59 06:59 Intake Total 627.617 ml 370.432 ml 696.056 ml Output Total 950 ml 1200 ml Balance 627.617 ml -579.568 ml -503.944 ml medications Current Medications Medications Dose Ordered Sig/Zainab Route Start Time Stop Time Status Last Admin Dose Admin Acetaminophen/ Hydrocodone Bitart 1 tab Q4HP PRN PO 03/18/25 19:15 03/20/25 22:30 1 TAB Ondansetron HCl 4 mg Q4HP PRN IV 03/18/25 19:15 Acetaminophen 650 mg Q6HP PRN PO 03/18/25 19:15 Nitroglycerin 0.4 mg Q5MINP PRN SL 03/18/25 19:15 Morphine Sulfate 2 mg Q30M PRN IV 03/18/25 19:15 Phenylephrine HCl 80 mg/Sodium Chloride 250 ml @ 7.5 mls/hr Q24H IV 03/19/25 09:15 03/23/25 02:03 15 MLS/HR Norepinephrine Bitartrate 32 mg/ Sodium Chloride 250 ml @ 0.938 mls/ hr Q24H IV 03/19/25 09:15 03/21/25 05:05 5.625 MLS/HR Vasopressin 20 units/Sodium Chloride 100 ml @ 9 mls/hr Q11H7M IV 03/19/25 09:15 Hydrocortisone Sodium Succinate 100 mg Q12HR IV 03/19/25 10:00 03/23/25 10:50 100 MG Meropenem 50 ml @ 17 mls/hr DAILY IV 03/19/25 10:00 UNV Daptomycin / Sodium Chloride 50 ml @ 100 mls/hr DAILY IV 03/19/25 10:00 UNV Sodium Chloride 10 ml QSHIFT@10,22 IV 03/19/25 10:00 03/23/25 10:51 10 ML Linezolid 300 ml @ 150 mls/hr Q12HR IV 03/19/25 22:00 03/23/25 11:02 150 MLS/HR Bumetanide 25 mg/ Miscellaneous 100 ml @ 4 mls/hr Q24H IV 03/20/25 08:30 03/23/25 06:10 4 MLS/HR Meropenem 50 ml @ 16.7 mls/hr Q12H IV 03/20/25 14:00 03/23/25 02:00 16.7 MLS/HR Propofol 100 ml @ 2.721 mls/ hr Q24H IV 03/21/25 11:15 03/23/25 11:14 8.163 MLS/HR Midazolam HCl 100 ml @ 1 mls/hr Q24H IV 03/21/25 11:15 03/21/25 10:42 1 MLS/HR Fentanyl Citrate 250 ml @ 2.5 mls/hr Q24H IV 03/21/25 11:15 03/23/25 00:40 7.5 MLS/HR Apixaban 5 mg BID GT 03/21/25 22:00 03/21/25 22:03 5 MG Atorvastatin Calcium 40 mg HS GT 03/21/25 22:00 03/22/25 21:50 40 MG Metolazone 5 mg DAILY GT 03/22/25 10:00 03/23/25 10:50 5 MG Digoxin 125 mcg EOD IV 03/22/25 10:00 Aspirin 81 mg DAILY GT 03/22/25 10:45 03/22/25 11:05 81 MG Examination: GENERAL:Abnormal, LUNGS:Abnormal (Endotracheally intubated 30% FiO2), CVS:Abnormal (A-fib controlled rate. 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 [place]) Plan: Transthoracic echocardiogram revealed LVEF 20% with severe global hypokinesis, biatrial and biventricular enlargement, aortic root enlargement, mild thickening of the mitral leaflets, mild mitral annular calcification, mild aortic sclerosis, diminished RV function, doming of the interventricular septum in systole and diastole consistent with a pressure in the volume overload/pulmonary hypertension. Scheduled for a transesophageal echocardiogram on 03/25/2025 to rule out subacute infective endocarditis. Spoke to sister (Myranda Worrell) over the phone who agrees and consents for intervention. In the meantime, discontinue ASA and Eliquis therapy and transition to renal therapeutic Lovenox given oral bleed. Continue vasopressor for hemodynamic support. Initiate GDMT for CHF as renal function and hemodynamics permit. Continue Nephrology recommendations. Further orders per clinical course. Thank you for allowing us to care for this patient. Critical care time: 40 min. This medical document was created using an electronic medical record system with voice recognition software and computerized dictation system. Although this document has been carefully reviewed, there might still be some phonetic and typographical errors. Occasional wrong-word or ``sound-alike substitutions may have occurred due to the inherent limitations of voice recognition software. These areas are purely typographical due to imperfections of the software programs and do not reflect any compromise in the patient's medical care. Please read the chart carefully and recognize, using context, where these substitutions have occurred. Plan discussed with: Other (Sister) Dietary Evaluation Review Comments: Nutrition Recommendation: 1) EN Nepro Carbsteady @ 45ml/hr x 24hr (goal) along with Pro-stat 1 pk BID. TF at goal volume along with Pro-stat provide 2144 kcal (100%), 118 gm protein (100%), and 785 ml free water. 2) Consider TPN/PN if NPO>7 days 3) Monitor NPO status, lab values, weight trend, and I/O Expected Outcomes/Goals: Intake to meet >75% estimated needs Lab values to improve FU 2-3 days Date of Service: Mar 23, 2025 Billing Provider: ALFONZO WALSH Cardiology Common Codes: [id number] CARE 30-74 MIN ALFONZO WALSH SELLING SPECIALIST Mar 23, 2025 11:33
--- NOTE | 2025-03-23 11:35 | DVHPN2 ---
Subjective Patient reports generalized weakness Reviewed: Care Plan, H&P, Labs, Medications, Previous Orders Changes from previous H/P or p: No Changes General: Per HPI Objective Vitals Vital Signs Date Time Temp Pulse Resp B/P (MAP) Pulse Ox O2 Delivery O2 Flow Rate FiO2 03/23/25 10:50 103/59 03/23/25 08:00 24 99 Mechanical Ventilator+ 30 30 03/23/25 08:00 81 03/23/25 06:45 98.2 208.8 03/21/25 16:00 10 Intake/Output Intake and Output 03/23/25 07:00 Intake Total 1691.918 ml Output Total 2150 ml Balance -458.082 ml Intake Oral 80 ml IV Total 1611.918 ml Output Urine Total 2050 ml Other 100 ml General Appearance: Other (Intubated, on vent) HEENT: Atraumatic, PERRLA Lungs: Clear to auscultation, Normal air movement Cardiovascular: Normal S1, Normal S2 Abdomen: Normal bowel sounds, Soft, No tenderness, No hepatospenomegaly, No masses Genitourinary: No Apparent Abnormalities (Olsen catheter) Musculoskeletal: Normal sensory function, Normal motor function Neuro: Other (Intubated, on vent, unable to exam) Skin: Dry, Intact Psych/Mental Status: Other (Intubated, on vent, unable to exam) Medications Current Medications Medications Dose Ordered Sig/Zainab Route Start Time Stop Time Status Last Admin Dose Admin Acetaminophen/ Hydrocodone Bitart 1 tab Q4HP PRN PO 03/18/25 19:15 03/20/25 22:30 1 TAB Ondansetron HCl 4 mg Q4HP PRN IV 03/18/25 19:15 Acetaminophen 650 mg Q6HP PRN PO 03/18/25 19:15 Nitroglycerin 0.4 mg Q5MINP PRN SL 03/18/25 19:15 Morphine Sulfate 2 mg Q30M PRN IV 03/18/25 19:15 Phenylephrine HCl 80 mg/Sodium Chloride 250 ml @ 7.5 mls/hr Q24H IV 03/19/25 09:15 03/23/25 02:03 15 MLS/HR Norepinephrine Bitartrate 32 mg/ Sodium Chloride 250 ml @ 0.938 mls/ hr Q24H IV 03/19/25 09:15 03/21/25 05:05 5.625 MLS/HR Vasopressin 20 units/Sodium Chloride 100 ml @ 9 mls/hr Q11H7M IV 03/19/25 09:15 Hydrocortisone Sodium Succinate 100 mg Q12HR IV 03/19/25 10:00 03/23/25 10:50 100 MG Meropenem 50 ml @ 17 mls/hr DAILY IV 03/19/25 10:00 UNV Daptomycin / Sodium Chloride 50 ml @ 100 mls/hr DAILY IV 03/19/25 10:00 UNV Sodium Chloride 10 ml QSHIFT@, IV 03/19/25 10:00 03/23/25 10:51 10 ML Linezolid 300 ml @ 150 mls/hr Q12HR IV 03/19/25 22:00 03/23/25 11:02 150 MLS/HR Meropenem 50 ml @ 16.7 mls/hr Q12H IV 03/20/25 14:00 03/23/25 02:00 16.7 MLS/HR Propofol 100 ml @ 2.721 mls/ hr Q24H IV 03/21/25 11:15 03/23/25 11:14 8.163 MLS/HR Midazolam HCl 100 ml @ 1 mls/hr Q24H IV 03/21/25 11:15 03/21/25 10:42 1 MLS/HR Fentanyl Citrate 250 ml @ 2.5 mls/hr Q24H IV 03/21/25 11:15 03/23/25 00:40 7.5 MLS/HR Atorvastatin Calcium 40 mg HS GT 03/21/25 22:00 03/22/25 21:50 40 MG Metolazone 5 mg DAILY GT 03/22/25 10:00 03/23/25 10:50 5 MG Enoxaparin Sodium 90 mg DAILY SC 03/24/25 10:00 UNV Bumetanide 25 mg/ Miscellaneous 100 ml @ 2 mls/hr Q24H IV 03/23/25 11:30 UNV Laboratory Results Laboratory Tests 03/23/25 02:52 Chemistry Test 03/23/25 02:52 Albumin 3.2 g/dL (3.2-4.8) Calcium Level 7.7 mg/dL (8.7-10.4) L Magnesium Level 2.5 mg/dL (1.6-2.6) Total Protein 5.7 g/dL (5.7-8.2) LFT Test 03/23/25 02:52 Alanine Aminotransferase (ALT) 39 U/L (7-40) Alkaline Phosphatase 177 U/L (46-116) H Aspartate Amino Transferase (AST) 68 U/L (13-40) H Total Bilirubin 5.8 mg/dL (0.2-1.0) H Urinalysis Test 03/21/25 00:00 03/21/25 03:10 Urine Color Dark-yellow (Yellow) Urine Clarity Turbid (Clear) H Urine pH 6.0 (5.0-9.0) Urine Specific [place] 1.014 (1.001-1.035) Urine Protein 2+ (Negative) H Urine Ketones Negative (Negative) Urine Blood 3+ /uL (Negative) H Urine Nitrite Negative (Negative) Urine Bilirubin 1+ (Negative) Urine Urobilinogen Normal mg/dL (Negative) Urine Leukocyte Esterase 2+ /uL (Negative) Urine RBC 896 /hpf (0 - 3) Urine Microscopic WBC 37 /HPF (0-3) H Urine Squamous Epithelial Cells Few /hpf (<5) Urine Bacteria None seen /hpf (None Seen) Urine Sperm Present /hpf (None Seen) Urine Glucose 1+ mg/dL (Normal) H Urine Creatinine 35.89 mg/dL (30.0-125.0) Urine Protein/Creatinine Ratio 30.21 Urine Sodium 95 mmol/L (40-220) Urine Total Protein 1084.4 mg/dL (1-14) H Blood Gas Results Test 03/23/25 07:12 Arterial Blood pH 7.477 (7.350-7.450) FiO2 % 30.0 Microbiology Microbiology Date/Time Source Procedure Growth Status 03/21/25 11:31 Sputum Gram Stain Pending Resulted 03/21/25 11:31 Sputum Respiratory Culture - Preliminary Resulted 03/21/25 02:30 Urine - [place] Urine Culture - Final Complete 03/20/25 15:03 Blood Blood Culture - Final Methicillin Resistant S.aureus Complete 03/19/25 23:20 Nose MRSA Screen - Final Methicillin Resistant S.aureus Complete Labs and/or images reviewed: Labs reviewed by me, Image(s) reviewed by me Assessment/Plan Assessment/Plan Impression: -septic shock -acute hypoxic respiratory failure -acute on chronic systolic and diastolic heart failure -right pleural effusion -acute kidney injury -chronic kidney disease stage IIIB/four -PE ruled out -history of polysubstance abuse -thrombocytopenia -metabolic encephalopathy Plan: Events: Patient intubated over the weekend. Now only requiring one vasopressor, phenylephrine. Patient received hemodialysis. Urine output noted. -nephrology consultation: Recommendations reviewed -continue vasopressor therapy -continue Zyvox, stop Meropenem -cultures reviewed. Repeat blood culture positive for MRSA -bronchodilators -PPI -continue current vent settings. -nephrology and cardiology consultation -repeat labs in a.m. Critical care time spent with patient discussing and formulating plan of care: 40 minutes. This does not include time spent performing procedures. This medical document was created using an electronic medical record system with [employer] dictation system. Although this document has been carefully reviewed, there may still be some phonetic and typographical errors. These areas are purely typographical due to imperfections of the software programs, and do not reflect any compromise in the patient's medical care. Plan discussed with: Patient, Other (RN) Date of Service: Mar 23, 2025 Billing Provider: ANGELA VAUGHAN NP Common Visit Codes: [id number] CARE 30-74 MIN ANGELA VAUGHAN NP Mar 23, 2025 11:35
[2025-03-23] MEDS: ENOXAPARIN SOD 100 MG/1 ML SYRINGE SC ONE (12:19)
[2025-03-23 14:50] LABS: Potassium 3.6 mmol/L (3.5-5.1); Sodium 136 mmol/L (136-145)
[2025-03-23 14:51] LABS: Anion Gap 14 (5-15); Carbon Dioxide 25 mmol/L (20-31); Chloride 97 mmol/L (98-107)
[2025-03-23 14:52] LABS: Calcium 6.9 mg/dL (8.7-10.4)
[2025-03-23 14:56] LABS: BUN/Creatinine Ratio 18.6 (10.0-20.0)
[2025-03-23 14:57] LABS: Blood Urea Nitrogen 62 mg/dL (9-23); Glucose 151 mg/dL (74-106)
--- NOTE | 2025-03-23 17:52 | DVHPN2 ---
Progress Note - Dictate Date Seen: Mar 23, 2025 Has the PT tested + for MRSA If YES, has PT been informed?: No Medical Necessity Reason Pt with a Central, PICC or Fol: Yes The following are medically ne: Central Line (HD catheter), Olsen Catheter vital signs Vital Sign Date Time Temp Pulse Resp B/P (MAP) Pulse Ox O2 Delivery O2 Flow Rate FiO2 03/23/25 16:11 67 24 98/60 (73) 99 30 03/23/25 15:45 98.1 208.6 03/23/25 14:00 Mechanical Ventilator+ 03/21/25 16:00 10 Total Intake and Output 03/22/25 03/22/25 03/23/25 15:00 23:00 07:00 Intake Total 622.930 ml 368.244 ml 700.744 ml Output Total 950 ml 1200 ml Balance 622.930 ml -581.756 ml -499.256 ml medications Current Medications Medications Dose Ordered Sig/Zainab Route Start Time Stop Time Status Last Admin Dose Admin Acetaminophen/ Hydrocodone Bitart 1 tab Q4HP PRN PO 03/18/25 19:15 03/20/25 22:30 1 TAB Ondansetron HCl 4 mg Q4HP PRN IV 03/18/25 19:15 Acetaminophen 650 mg Q6HP PRN PO 03/18/25 19:15 Nitroglycerin 0.4 mg Q5MINP PRN SL 03/18/25 19:15 Morphine Sulfate 2 mg Q30M PRN IV 03/18/25 19:15 Phenylephrine HCl 80 mg/Sodium Chloride 250 ml @ 7.5 mls/hr Q24H IV 03/19/25 09:15 03/23/25 17:38 15 MLS/HR Norepinephrine Bitartrate 32 mg/ Sodium Chloride 250 ml @ 0.938 mls/ hr Q24H IV 03/19/25 09:15 03/21/25 05:05 5.625 MLS/HR Vasopressin 20 units/Sodium Chloride 100 ml @ 9 mls/hr Q11H7M IV 03/19/25 09:15 Hydrocortisone Sodium Succinate 100 mg Q12HR IV 03/19/25 10:00 03/23/25 10:50 100 MG Meropenem 50 ml @ 17 mls/hr DAILY IV 03/19/25 10:00 UNV Daptomycin / Sodium Chloride 50 ml @ 100 mls/hr DAILY IV 03/19/25 10:00 UNV Sodium Chloride 10 ml QSHIFT@10,22 IV 03/19/25 10:00 03/23/25 10:51 10 ML Linezolid 300 ml @ 150 mls/hr Q12HR IV 03/19/25 22:00 03/23/25 11:02 150 MLS/HR Propofol 100 ml @ 2.721 mls/ hr Q24H IV 03/21/25 11:15 03/23/25 11:14 8.163 MLS/HR Midazolam HCl 100 ml @ 1 mls/hr Q24H IV 03/21/25 11:15 03/21/25 10:42 1 MLS/HR Fentanyl Citrate 250 ml @ 2.5 mls/hr Q24H IV 03/21/25 11:15 03/23/25 00:40 7.5 MLS/HR Atorvastatin Calcium 40 mg HS GT 03/21/25 22:00 03/22/25 21:50 40 MG Metolazone 5 mg DAILY GT 03/22/25 10:00 03/23/25 10:50 5 MG Enoxaparin Sodium 90 mg DAILY SC 03/24/25 10:00 Bumetanide 25 mg/ Miscellaneous 100 ml @ 2 mls/hr Q24H IV 03/23/25 11:30 03/23/25 11:30 2 MLS/HR Enteral Nutritional Formula 1,000 ml 30ML/HR GT 03/23/25 11:45 laboratory and microbiology Laboratory Tests 03/23/25 14:24 03/23/25 02:52 Test 03/23/25 14:24 Range/Units Serum Glucose 151 H 74-106 mg/dL Assessment/Plan Impression Acute hypoxemic respiratory failure Hx of substance abuse Bacteremia ROBERTO Patient seen and examined in [facility] Events On mechanical ventilation S/p intubation PEEP 5, FiO2 30% Bloody secretions reported Persistently bacteremic Labs and imaging reviewed ABG reviewed Management Vent support Titrate to maintain sats 90% or above Sedation for vent synchrony Continue antibiotics Change Zyvox to Vancomycin in view of bacteremia F/u cultures and ID Bronchodilators Monitor renal function Monitor electrolytes Supplement as needed Pressors as needed for hemodynamic support To maintain a mean arterial pressure of 65 mmHg GELY pending to rule out endocarditis F/u cardiology Will consider bronchoscopy DVT prophylaxis Critical care time 35 minutes Dietary Evaluation Review Comments: Nutrition Recommendation: 1) EN Nepro Carbsteady @ 45ml/hr x 24hr (goal) along with Pro-stat 1 pk BID. TF at goal volume along with Pro-stat provide 2144 kcal (100%), 118 gm protein (100%), and 785 ml free water. 2) Consider TPN/PN if NPO>7 days 3) Monitor NPO status, lab values, weight trend, and I/O Expected Outcomes/Goals: Intake to meet >75% estimated needs Lab values to improve FU 2-3 days Plan discussed with: Other (Rn) JESSICA RAYMUNDO MD Mar 23, 2025 17:52
[2025-03-23] MEDS: Nepro With Carb Steady 1 Liter Bottle GT SCH (20:13)
[2025-03-23] MEDS ORDERED: VANCOMYCIN PER PHARMACY 0 MG IV SCH (22:45)
[2025-03-24] VITALS (106 sets, daily range): BP systolic 88–111; BP diastolic 47–69; PULSE 60–87; RESP 12–30; TEMP 97.3–98.8; O2SAT 10–100
--- NOTE | 2025-03-24 03:31 | DVH ---
CHEST RADIOGRAPH Indication: intubated Technique: 1 view Comparison: XY CHEST XRAY 1 VIEW on DOS: 03/23/25, XY CHEST PORTABLE on DOS: 03/22/25, XY CHEST PORTABLE on DOS: 03/21/25, XY CHEST XRAY 1 VIEW on DOS: 03/21/25, XY CHEST PORTABLE on DOS: 03/21/25 FINDINGS: Lines and Tubes: Unchanged. Lungs/Pleura: Unchanged. Cardiomediastinum: Unchanged. Other: Unchanged osseous structures. IMPRESSION: No change from the previous study. Stable support devices. Persistent mid to basilar graded opacities with diffuse interstitial prominence.
[2025-03-24 03:59] LABS: Nucleated Red Blood Cells % 0.1 %
[2025-03-24 04:01] LABS: Hematocrit 34.7 % (41.0-53.0); Hemoglobin 11.0 g/dL (13.5-17.5); Mean Corpuscular Hemoglobin 23.5 pg (28.0-32.0); Mean Corpuscular Volume 74.0 fL (80.0-100.0)
[2025-03-24 04:07] LABS: Anion Gap 16 (5-15); Carbon Dioxide 27 mmol/L (20-31); Potassium 3.7 mmol/L (3.5-5.1); Sodium 138 mmol/L (136-145)
[2025-03-24 04:13] LABS: BUN/Creatinine Ratio 19.9 (10.0-20.0)
[2025-03-24 04:14] LABS: Magnesium 2.5 mg/dL (1.6-2.6)
[2025-03-24 04:17] LABS: Blood Urea Nitrogen 76 mg/dL (9-23); Calcium 7.6 mg/dL (8.7-10.4); Chloride 95 mmol/L (98-107); Glucose 150 mg/dL (74-106)
--- NOTE | 2025-03-24 07:21 | ECG ---
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
[2025-03-24 07:48] LABS: Base Excess 2.4 mmol/L (-2.0-3.0)
[2025-03-24] MEDS: SODIUM CHL 0.9% 1000 ML BAG XX ONE (08:45)
--- NOTE | 2025-03-24 08:46 | DVHPN2 ---
Subjective Intubated and sedated Reviewed: Care Plan, H&P, Labs, Medications, Previous Orders Changes from previous H/P or p: No Changes General: Per HPI Objective Vitals Vital Signs Date Time Temp Pulse Resp B/P (MAP) Pulse Ox O2 Delivery O2 Flow Rate FiO2 03/24/25 07:29 63 24 100/59 (73) 99 30 03/24/25 06:45 97.9 208.2 03/24/25 05:45 Mechanical Ventilator+ Intake/Output Intake and Output 03/24/25 07:00 Intake Total 1639.629 ml Output Total 3145 ml Balance -1505.371 ml Intake Oral 130 ml IV Total 1313.629 ml Tube Feeding 196 ml Output Urine Total 3125 ml Other 20 ml General Appearance: mild distress, Other (Intubated, on vent) HEENT: Atraumatic, PERRLA, Other (bleeding from oral mucosa) Lungs: Clear to auscultation, Normal air movement Cardiovascular: Normal S1, Normal S2 Abdomen: Normal bowel sounds, Soft, No tenderness, No hepatospenomegaly, No masses Genitourinary: No Apparent Abnormalities (Olsen catheter) Musculoskeletal: Other (Unable to assess) Neuro: Other (Unable to assess) Skin: Dry, Intact Psych/Mental Status: Other (Intubated, on vent, unable to exam) Medications Current Medications Medications Dose Ordered Sig/Zainab Route Start Time Stop Time Status Last Admin Dose Admin Acetaminophen/ Hydrocodone Bitart 1 tab Q4HP PRN PO 03/18/25 19:15 03/20/25 22:30 1 TAB Ondansetron HCl 4 mg Q4HP PRN IV 03/18/25 19:15 Acetaminophen 650 mg Q6HP PRN PO 03/18/25 19:15 Nitroglycerin 0.4 mg Q5MINP PRN SL 03/18/25 19:15 Morphine Sulfate 2 mg Q30M PRN IV 03/18/25 19:15 Phenylephrine HCl 80 mg/Sodium Chloride 250 ml @ 7.5 mls/hr Q24H IV 03/19/25 09:15 03/23/25 17:38 15 MLS/HR Norepinephrine Bitartrate 32 mg/ Sodium Chloride 250 ml @ 0.938 mls/ hr Q24H IV 03/19/25 09:15 03/23/25 18:44 0.938 MLS/HR Vasopressin 20 units/Sodium Chloride 100 ml @ 9 mls/hr Q11H7M IV 03/19/25 09:15 Hydrocortisone Sodium Succinate 100 mg Q12HR IV 03/19/25 10:00 03/23/25 21:48 100 MG Meropenem 50 ml @ 17 mls/hr DAILY IV 03/19/25 10:00 UNV Daptomycin / Sodium Chloride 50 ml @ 100 mls/hr DAILY IV 03/19/25 10:00 UNV Sodium Chloride 10 ml QSHIFT@10,22 IV 03/19/25 10:00 03/23/25 21:48 10 ML Linezolid 300 ml @ 150 mls/hr Q12HR IV 03/19/25 22:00 03/23/25 21:48 150 MLS/HR Propofol 100 ml @ 2.721 mls/ hr Q24H IV 03/21/25 11:15 03/24/25 03:15 8.163 MLS/HR Midazolam HCl 100 ml @ 1 mls/hr Q24H IV 03/21/25 11:15 03/21/25 10:42 1 MLS/HR Fentanyl Citrate 250 ml @ 2.5 mls/hr Q24H IV 03/21/25 11:15 03/23/25 00:40 7.5 MLS/HR Atorvastatin Calcium 40 mg HS GT 03/21/25 22:00 03/23/25 21:48 40 MG Metolazone 5 mg DAILY GT 03/22/25 10:00 03/23/25 10:50 5 MG Enoxaparin Sodium 90 mg DAILY SC 03/24/25 10:00 Enteral Nutritional Formula 1,000 ml 30ML/HR GT 03/23/25 11:45 03/23/25 20:13 1,000 ML Vancomycin HCl 0 ml @ 0 mls/hr PER PHARMACY IV 03/23/25 22:45 UNV Bumetanide 2.5 mg DAILY IV 03/24/25 10:00 UNV Laboratory Results Laboratory Tests 03/24/25 03:08 Chemistry Test 03/23/25 14:24 03/24/25 03:08 Calcium Level 6.9 mg/dL (8.7-10.4) L 7.6 mg/dL (8.7-10.4) L Phosphorus Level 5.8 mg/dL (2.4-5.1) H Magnesium Level 2.5 mg/dL (1.6-2.6) Urinalysis Test 03/21/25 00:00 03/21/25 03:10 Urine Color Dark-yellow (Yellow) Urine Clarity Turbid (Clear) H Urine pH 6.0 (5.0-9.0) Urine Specific [place] 1.014 (1.001-1.035) Urine Protein 2+ (Negative) H Urine Ketones Negative (Negative) Urine Blood 3+ /uL (Negative) H Urine Nitrite Negative (Negative) Urine Bilirubin 1+ (Negative) Urine Urobilinogen Normal mg/dL (Negative) Urine Leukocyte Esterase 2+ /uL (Negative) Urine RBC 896 /hpf (0 - 3) Urine Microscopic WBC 37 /HPF (0-3) H Urine Squamous Epithelial Cells Few /hpf (<5) Urine Bacteria None seen /hpf (None Seen) Urine Sperm Present /hpf (None Seen) Urine Glucose 1+ mg/dL (Normal) H Urine Creatinine 35.89 mg/dL (30.0-125.0) Urine Protein/Creatinine Ratio 30.21 Urine Sodium 95 mmol/L (40-220) Urine Total Protein 1084.4 mg/dL (1-14) H Blood Gas Results Test 03/24/25 07:32 Arterial Blood pH 7.504 (7.350-7.450) FiO2 % 30.0 Microbiology Microbiology Date/Time Source Procedure Growth Status 03/21/25 11:31 Sputum Gram Stain - Final Resulted 03/21/25 11:31 Sputum Respiratory Culture - Preliminary Resulted 03/21/25 02:30 Urine - Olsen Port Urine Culture - Final Complete 03/20/25 15:03 Blood Blood Culture - Final Methicillin Resistant S.aureus Complete 03/19/25 23:20 Nose MRSA Screen - Final Methicillin Resistant S.aureus Complete Labs and/or images reviewed: Labs reviewed by me, Image(s) reviewed by me Assessment/Plan Assessment/Plan Impression: -septic shock -acute hypoxic respiratory failure -acute on chronic systolic and diastolic heart failure -right pleural effusion -acute kidney injury -chronic kidney disease stage IIIB/four -PE ruled out -history of polysubstance abuse -thrombocytopenia -metabolic encephalopathy Plan: Events: continued bleeding from oral cavity. UOP acceptable. -nephrology consultation: Recommendations reviewed -continue vasopressor therapy -continue Zyvox, stop Meropenem -Repeat blood culture pending. -Hold lovenox till oral bleeding stops -bronchodilators -PPI -continue current vent settings. -nephrology and cardiology consultation -repeat labs in a.m. Critical care time spent with patient discussing and formulating plan of care: 40 minutes. This does not include time spent performing procedures. This medical document was created using an electronic medical record system with [employer] dictation system. Although this document has been carefully reviewed, there may still be some phonetic and typographical errors. These areas are purely typographical due to imperfections of the software programs, and do not reflect any compromise in the patient's medical care. Plan discussed with: Patient, Other (RN) My Orders Orders - ANGELA VAUGHAN NP Procedure Category Date Status Time Nutritional PHA 03/23/25 In Process Supplements (Nepro 11:45 Apply Z-Guard MICHAEL 03/23/25 In Process 10:40 Ventilator Setup RT 03/24/25 Logged 08:07 Comprehensive LAB 03/25/25 Verified Metabolic Panel 05:00 Comprehensive LAB 03/26/25 Verified Metabolic Panel 05:00 Comprehensive LAB 03/27/25 Verified Metabolic Panel 05:00 Complete Blood Count LAB 03/25/25 Verified 05:00 Complete Blood Count LAB 03/26/25 Verified 05:00 Complete Blood Count LAB 03/27/25 Verified 05:00 Chest Portable XY 03/25/25 Logged 05:00 Chest Portable XY 03/26/25 Logged 05:00 Chest Portable XY 03/27/25 Logged 05:00 Date of Service: Mar 24, 2025 Billing Provider: ANGELA VAUGHAN NP Common Visit Codes: [id number]-[id number] CARE 30-74 MIN ANGELA VAUGHAN NP Mar 24, 2025 08:46
--- NOTE | 2025-03-24 09:21 | DVH ---
US CHEST ULTRASOUND, HISTORY: pleural effusion COMPARISON(S): XY CHEST XRAY 1 VIEW on DOS: 03/24/25, XY CHEST XRAY 1 VIEW on DOS: 03/23/25, XY CHEST XRAY 1 VIEW on DOS: 03/21/25 TECHNICAL DATA: Transverse and longitudinal images are obtained of the chest. FINDING: IMPRESSION(S): Small to moderate bilateral pleural effusion.
--- NOTE | 2025-03-24 09:25 | DVHPN2 ---
Progress Note Date Seen: Mar 24, 2025 Has the PT tested + for MRSA If YES, has PT been informed?: No Medical Necessity Reason Pt with a Central, PICC or Fol: Yes The following are medically ne: Central Line (HD catheter), Olsen Catheter Subjective Review of Systems: Deferred Objective vital signs Vital Sign Date Time Temp Pulse Resp B/P (MAP) Pulse Ox O2 Delivery O2 Flow Rate FiO2 03/24/25 07:29 63 24 100/59 (73) 99 30 03/24/25 06:45 97.9 208.2 03/24/25 05:45 Mechanical Ventilator+ Total Intake and Output 03/23/25 03/23/25 03/24/25 15:00 23:00 07:00 Intake Total 565.304 ml 278.744 ml 795.581 ml Output Total 1400 ml 1745 ml Balance 565.304 ml -1121.256 ml -949.419 ml medications Current Medications Medications Dose Ordered Sig/Zainab Route Start Time Stop Time Status Last Admin Dose Admin Acetaminophen/ Hydrocodone Bitart 1 tab Q4HP PRN PO 03/18/25 19:15 03/20/25 22:30 1 TAB Ondansetron HCl 4 mg Q4HP PRN IV 03/18/25 19:15 Acetaminophen 650 mg Q6HP PRN PO 03/18/25 19:15 Nitroglycerin 0.4 mg Q5MINP PRN SL 03/18/25 19:15 Morphine Sulfate 2 mg Q30M PRN IV 03/18/25 19:15 Phenylephrine HCl 80 mg/Sodium Chloride 250 ml @ 7.5 mls/hr Q24H IV 03/19/25 09:15 03/23/25 17:38 15 MLS/HR Norepinephrine Bitartrate 32 mg/ Sodium Chloride 250 ml @ 0.938 mls/ hr Q24H IV 03/19/25 09:15 03/23/25 18:44 0.938 MLS/HR Vasopressin 20 units/Sodium Chloride 100 ml @ 9 mls/hr Q11H7M IV 03/19/25 09:15 Hydrocortisone Sodium Succinate 100 mg Q12HR IV 03/19/25 10:00 03/23/25 21:48 100 MG Meropenem 50 ml @ 17 mls/hr DAILY IV 03/19/25 10:00 UNV Daptomycin / Sodium Chloride 50 ml @ 100 mls/hr DAILY IV 03/19/25 10:00 UNV Sodium Chloride 10 ml QSHIFT@10,22 IV 03/19/25 10:00 03/23/25 21:48 10 ML Linezolid 300 ml @ 150 mls/hr Q12HR IV 03/19/25 22:00 03/23/25 21:48 150 MLS/HR Propofol 100 ml @ 2.721 mls/ hr Q24H IV 03/21/25 11:15 03/24/25 03:15 8.163 MLS/HR Midazolam HCl 100 ml @ 1 mls/hr Q24H IV 03/21/25 11:15 03/21/25 10:42 1 MLS/HR Fentanyl Citrate 250 ml @ 2.5 mls/hr Q24H IV 03/21/25 11:15 03/23/25 00:40 7.5 MLS/HR Atorvastatin Calcium 40 mg HS GT 03/21/25 22:00 03/23/25 21:48 40 MG Metolazone 5 mg DAILY GT 03/22/25 10:00 03/23/25 10:50 5 MG Enteral Nutritional Formula 1,000 ml 30ML/HR GT 03/23/25 11:45 03/23/25 20:13 1,000 ML Vancomycin HCl 0 ml @ 0 mls/hr PER PHARMACY IV 03/23/25 22:45 UNV Bumetanide 2.5 mg DAILY IV 03/24/25 10:00 Examination: GENERAL:Abnormal, LUNGS:Abnormal, SKIN:Normal laboratory and microbiology Laboratory Tests 03/24/25 03:08 Test 03/24/25 03:08 Range/Units Serum Glucose 150 H 74-106 mg/dL Microbiology Date/Time Source Procedure Growth Status 03/21/25 11:31 Sputum Gram Stain - Final Resulted 03/21/25 11:31 Sputum Respiratory Culture - Preliminary Resulted 03/21/25 02:30 Urine - Olsen Port Urine Culture - Final Complete 03/20/25 15:03 Blood Blood Culture - Final Methicillin Resistant S.aureus Complete 03/19/25 23:20 Nose MRSA Screen - Final Methicillin Resistant S.aureus Complete Problem List/Assessment/Plan Problem List/Assessment/Plan This is a 59-year-old male with past medical history of heart failure (HFrEF, methamphetamine induced, EF 15%), permanent AFib (on Eliquis), BPH, recurrent right-sided pleural effusion/thoracentesis, hypertension and dyslipidemia came to the hospital due to shortness of breath since 3 days. Nephrology is consulted due to raised creatinine. ROBERTO, on CKD 2, due to septic/cardiogenic shock-----> required acute Hd last 03/22 Acute respiratory failure intubated 03/21 Hyponatremia, likely due to advanced heart failure Septic shock, MRSA bacteremia Acute on chronic systolic heart failure NSTEMI AFib, with a RVR Hypertension Dyslipidemia Cirrhosis methamphetamine abuse Plan/recommendation: s/p leisa cath intubated uop is good but BUN continues to rise, partial renal recovery HD today( nurse at bedside) for metabolic clearence switch bumex drip to IVP IV ABX on merrem and Zyvox strict I/O guarded prognosis Plan discussed with: Other My Orders My Orders Orders - FEDERICO HANSEN MD Procedure Category Date Status Time Communication Order ORDERS 03/23/25 Transmitted 15:32 Bumetanide Injection PHA 03/24/25 In Process (Bumex Injection) 10:00 Hemodialysis Orders ORDERS 03/24/25 Transmitted 08:34 Dialysis Nursing MICHAEL 03/24/25 In Process Message 08:34 Document Fluid Input MICHAEL 03/24/25 In Process And Outpu 08:34 Dietary Evaluation Review Comments: Nutrition Recommendation: 1) EN Nepro Carbsteady @ 45ml/hr x 24hr (goal) along with Pro-stat 1 pk BID. TF at goal volume along with Pro-stat provide 2144 kcal (100%), 118 gm protein (100%), and 785 ml free water. 2) Consider TPN/PN if NPO>7 days 3) Monitor NPO status, lab values, weight trend, and I/O Expected Outcomes/Goals: Intake to meet >75% estimated needs Lab values to improve FU 2-3 days FEDERICO HANSEN MD Mar 24, 2025 09:25
--- NOTE | 2025-03-24 09:46 | DVHPN2 ---
Consult Progress Note Date Seen: Mar 24, 2025 Subjective Other Systems: Reported oral bleed with gastric residual with dark secretions Objective vital signs Vital Sign Date Time Temp Pulse Resp B/P (MAP) Pulse Ox O2 Delivery O2 Flow Rate FiO2 03/24/25 07:29 63 24 100/59 (73) 99 30 03/24/25 06:45 97.9 208.2 03/24/25 05:45 Mechanical Ventilator+ Total Intake and Output 03/23/25 03/23/25 03/24/25 15:00 23:00 07:00 Intake Total 565.304 ml 278.744 ml 795.581 ml Output Total 1400 ml 1745 ml Balance 565.304 ml -1121.256 ml -949.419 ml medications Current Medications Medications Dose Ordered Sig/Zainab Route Start Time Stop Time Status Last Admin Dose Admin Acetaminophen/ Hydrocodone Bitart 1 tab Q4HP PRN PO 03/18/25 19:15 03/20/25 22:30 1 TAB Ondansetron HCl 4 mg Q4HP PRN IV 03/18/25 19:15 Acetaminophen 650 mg Q6HP PRN PO 03/18/25 19:15 Nitroglycerin 0.4 mg Q5MINP PRN SL 03/18/25 19:15 Morphine Sulfate 2 mg Q30M PRN IV 03/18/25 19:15 Phenylephrine HCl 80 mg/Sodium Chloride 250 ml @ 7.5 mls/hr Q24H IV 03/19/25 09:15 03/23/25 17:38 15 MLS/HR Norepinephrine Bitartrate 32 mg/ Sodium Chloride 250 ml @ 0.938 mls/ hr Q24H IV 03/19/25 09:15 03/23/25 18:44 0.938 MLS/HR Vasopressin 20 units/Sodium Chloride 100 ml @ 9 mls/hr Q11H7M IV 03/19/25 09:15 Hydrocortisone Sodium Succinate 100 mg Q12HR IV 03/19/25 10:00 03/23/25 21:48 100 MG Meropenem 50 ml @ 17 mls/hr DAILY IV 03/19/25 10:00 UNV Daptomycin / Sodium Chloride 50 ml @ 100 mls/hr DAILY IV 03/19/25 10:00 UNV Sodium Chloride 10 ml QSHIFT@ IV 03/19/25 10:00 03/23/25 21:48 10 ML Linezolid 300 ml @ 150 mls/hr Q12HR IV 03/19/25 22:00 03/23/25 21:48 150 MLS/HR Propofol 100 ml @ 2.721 mls/ hr Q24H IV 03/21/25 11:15 03/24/25 03:15 8.163 MLS/HR Midazolam HCl 100 ml @ 1 mls/hr Q24H IV 03/21/25 11:15 03/21/25 10:42 1 MLS/HR Fentanyl Citrate 250 ml @ 2.5 mls/hr Q24H IV 03/21/25 11:15 03/23/25 00:40 7.5 MLS/HR Atorvastatin Calcium 40 mg HS GT 03/21/25 22:00 03/23/25 21:48 40 MG Metolazone 5 mg DAILY GT 03/22/25 10:00 03/23/25 10:50 5 MG Enteral Nutritional Formula 1,000 ml 30ML/HR GT 03/23/25 11:45 03/23/25 20:13 1,000 ML Vancomycin HCl 0 ml @ 0 mls/hr PER PHARMACY IV 03/23/25 22:45 UNV Bumetanide 2.5 mg DAILY IV 03/24/25 10:00 Examination: HEENT:Abnormal (Residual blood in/on mouth), LUNGS:Abnormal (Enodtracheally intubated 30% FiO2. Bilateral crackles), CVS:Abnormal (Transitioned into a NSR. 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 Washington) Plan: Transthoracic echocardiogram revealed LVEF 20% with severe global hypokinesis, biatrial and biventricular enlargement, aortic root enlargement, mild thickening of the mitral leaflets, mild mitral annular calcification, mild aortic sclerosis, diminished RV function, doming of the interventricular septum in systole and diastole consistent with a pressure in the volume overload/pulmonary hypertension. Initially scheduled for a transesophageal echocardiogram on 03/25/2025 to rule out subacute infective endocarditis. Given oral bleed, we will await for resolution and re-schedule GELY accordingly. In the meantime, discontinue Lovenox or any other AC/antiplatelet therapy (currently in NSR). Initiate PPI. Hold antiarrhythmic therapy, allergic to amiodarone. Initiate preload and afterload reduction with Dobutamine drip. Continue vasopressor for hemodynamic support. Initiate GDMT for CHF as renal function and hemodynamics permit. Continue Nephrology recommendations. DVT/VTE prophylaxis: SCDs. Consider GI consultation. Further orders per clinical course. Thank you for allowing us to care for this patient. Critical care time: 30 min. This medical document was created using an electronic medical record system with voice recognition software and computerized dictation system. Although this document has been carefully reviewed, there might still be some phonetic and typographical errors. Occasional wrong-word or ``sound-alike substitutions may have occurred due to the inherent limitations of voice recognition software. These areas are purely typographical due to imperfections of the software programs and do not reflect any compromise in the patient's medical care. Please read the chart carefully and recognize, using context, where these substitutions have occurred. Plan discussed with: Other Dietary Evaluation Review Comments: Nutrition Recommendation: 1) EN Nepro Carbsteady @ 45ml/hr x 24hr (goal) along with Pro-stat 1 pk BID. TF at goal volume along with Pro-stat provide 2144 kcal (100%), 118 gm protein (100%), and 785 ml free water. 2) Consider TPN/PN if NPO>7 days 3) Monitor NPO status, lab values, weight trend, and I/O Expected Outcomes/Goals: Intake to meet >75% estimated needs Lab values to improve FU 2-3 days Date of Service: Mar 24, 2025 Billing Provider: ALFONZO WALSH Cardiology Common Codes: 72906-[id number] CARE 30-74 MIN ALFONZO WALSH Mar 24, 2025 09:46
[2025-03-24] MEDS ORDERED: ENOXAPARIN SOD 100 MG/1 ML SYRINGE SC SCH (10:00)
[2025-03-24] MEDS: DOBUTamine 1000MCG/ML 250 ML IV SCH (11:38)
[2025-03-24] MEDS: BUMETANIDE 2.5mg/10ml (0.25 mg/ml) INJ IV SCH (12:40)
[2025-03-24] MEDS: PANTOPRAZOLE 40 MG/10 ML VIAL INJ IV SCH (12:41)
[2025-03-24] MEDS: phytonadione 10 MG in SODIUM CHL 0.9% 50 ML IV SCH (12:51)
--- NOTE | 2025-03-24 15:00 | DVHPN2 ---
Progress Note - Dictate Date Seen: Mar 24, 2025 Medical Necessity Reason Pt with a Central, PICC or Fol: Yes The following are medically ne: Central Line (HD catheter), Olsen Catheter vital signs Vital Sign Date Time Temp Pulse Resp B/P (MAP) Pulse Ox O2 Delivery O2 Flow Rate FiO2 03/24/25 14:12 71 20 99/53 (68) 94 30 03/24/25 14:00 Mechanical Ventilator+ 03/24/25 14:00 98.6 209.5 Total Intake and Output 03/23/25 03/23/25 03/24/25 15:00 23:00 07:00 Intake Total 565.304 ml 278.744 ml 817.269 ml Output Total 1400 ml 1745 ml Balance 565.304 ml -1121.256 ml -927.731 ml medications Current Medications Medications Dose Ordered Sig/Zainab Route Start Time Stop Time Status Last Admin Dose Admin Acetaminophen/ Hydrocodone Bitart 1 tab Q4HP PRN PO 03/18/25 19:15 03/20/25 22:30 1 TAB Ondansetron HCl 4 mg Q4HP PRN IV 03/18/25 19:15 Acetaminophen 650 mg Q6HP PRN PO 03/18/25 19:15 Nitroglycerin 0.4 mg Q5MINP PRN SL 03/18/25 19:15 Morphine Sulfate 2 mg Q30M PRN IV 03/18/25 19:15 Phenylephrine HCl 80 mg/Sodium Chloride 250 ml @ 7.5 mls/hr Q24H IV 03/19/25 09:15 03/24/25 14:19 12.188 MLS/HR Norepinephrine Bitartrate 32 mg/ Sodium Chloride 250 ml @ 0.938 mls/ hr Q24H IV 03/19/25 09:15 03/23/25 18:44 0.938 MLS/HR Vasopressin 20 units/Sodium Chloride 100 ml @ 9 mls/hr Q11H7M IV 03/19/25 09:15 Hydrocortisone Sodium Succinate 100 mg Q12HR IV 03/19/25 10:00 03/24/25 12:41 100 MG Meropenem 50 ml @ 17 mls/hr DAILY IV 03/19/25 10:00 UNV Daptomycin / Sodium Chloride 50 ml @ 100 mls/hr DAILY IV 03/19/25 10:00 UNV Sodium Chloride 10 ml QSHIFT@10,22 IV 03/19/25 10:00 03/24/25 12:41 10 ML Linezolid 300 ml @ 150 mls/hr Q12HR IV 03/19/25 22:00 03/24/25 12:41 150 MLS/HR Propofol 100 ml @ 2.721 mls/ hr Q24H IV 03/21/25 11:15 03/24/25 13:27 8.163 MLS/HR Midazolam HCl 100 ml @ 1 mls/hr Q24H IV 03/21/25 11:15 03/21/25 10:42 1 MLS/HR Fentanyl Citrate 250 ml @ 2.5 mls/hr Q24H IV 03/21/25 11:15 03/24/25 10:11 7.5 MLS/HR Atorvastatin Calcium 40 mg HS GT 03/21/25 22:00 03/23/25 21:48 40 MG Metolazone 5 mg DAILY GT 03/22/25 10:00 03/24/25 12:40 5 MG Enteral Nutritional Formula 1,000 ml 30ML/HR GT 03/23/25 11:45 03/23/25 20:13 1,000 ML Vancomycin HCl 0 ml @ 0 mls/hr PER PHARMACY IV 03/23/25 22:45 UNV Bumetanide 2.5 mg DAILY IV 03/24/25 10:00 03/24/25 12:40 2.5 MG Dobutamine HCl/ Dextrose 250 ml @ 12.03 mls/ hr [id number] IV 03/24/25 09:45 03/24/25 11:38 12.03 MLS/HR Pantoprazole Sodium 40 mg DAILY IV 03/24/25 10:00 03/24/25 12:41 40 MG Phytonadione 10 mg/Sodium Chloride 51 ml @ 204 mls/hr DAILY IV 03/24/25 12:20 03/26/25 10:14 03/24/25 12:51 204 MLS/HR laboratory and microbiology Laboratory Tests 03/24/25 03:08 Test 03/24/25 03:08 Range/Units Serum Glucose 150 H 74-106 mg/dL Assessment/Plan Impression Acute hypoxemic respiratory failure Hx of substance abuse Bacteremia ROBERTO Patient seen and examined in [facility] Events On mechanical ventilation S/p intubation PEEP 5, FiO2 30% Bloody secretions reported Persistently bacteremic Labs and imaging reviewed ABG reviewed pH 7.50, pCO2 32, pO2 69 Management Vent support Titrate to maintain sats 90% or above Sedation for vent synchrony Continue antibiotics Change Zyvox to Vancomycin in view of bacteremia F/u cultures and ID Bronchodilators Monitor renal function Monitor electrolytes Supplement as needed Pressors as needed for hemodynamic support To maintain a mean arterial pressure of 65 mmHg GELY pending to rule out endocarditis F/u cardiology Recommend Vitamin K Bronchoscopy deferred in view of minimal secretions DVT prophylaxis Critical care time 35 minutes Dietary Evaluation Review Comments: Nutrition Recommendation: 1) EN Nepro Carbsteady @ 45ml/hr x 24hr (goal) along with Pro-stat 1 pk BID. TF at goal volume along with Pro-stat provide 2144 kcal (100%), 118 gm protein (100%), and 785 ml free water. 2) Consider TPN/PN if NPO>7 days 3) Monitor NPO status, lab values, weight trend, and I/O Expected Outcomes/Goals: Intake to meet >75% estimated needs Lab values to improve FU 2-3 days Plan discussed with: Other (Rn) JESSICA RAYMUNDO MD Mar 24, 2025 15:00
[2025-03-25] VITALS (109 sets, daily range): BP systolic 98–121; BP diastolic 55–77; PULSE 63–82; RESP 10–25; TEMP 96.3–99; O2SAT 86–100
[2025-03-25 03:23] LABS: Hemoglobin 8.8 g/dL (13.5-17.5); Nucleated Red Blood Cells % 0.0 %
[2025-03-25 03:25] LABS: Hematocrit 27.5 % (41.0-53.0); Mean Corpuscular Hemoglobin 24.1 pg (28.0-32.0); Mean Corpuscular Volume 74.8 fL (80.0-100.0)
[2025-03-25 03:48] LABS: Anion Gap 16 (5-15); BUN/Creatinine Ratio 17.6 (10.0-20.0); Carbon Dioxide 24 mmol/L (20-31); Chloride 99 mmol/L (98-107); Potassium 3.6 mmol/L (3.5-5.1); Sodium 139 mmol/L (136-145)
[2025-03-25 04:08] LABS: Alanine Aminotransferase 54 U/L (7-40); Albumin 2.9 g/dL (3.2-4.8); Alkaline Phosphatase 303 U/L (46-116); Bilirubin, Total 4.3 mg/dL (0.2-1.0); Blood Urea Nitrogen 59 mg/dL (9-23); Calcium 6.7 mg/dL (8.7-10.4); Glucose 163 mg/dL (74-106); Total Protein 5.4 g/dL (5.7-8.2)
--- NOTE | 2025-03-25 05:14 | DVH ---
CHEST RADIOGRAPH Indication: pna Technique: Single frontal view of the chest was obtained COMPARISON: XY CHEST XRAY 1 VIEW on DOS: 03/24/25, XY CHEST XRAY 1 VIEW on DOS: 03/23/25, XY CHEST PORTABLE on DOS: 03/22/25, XY CHEST PORTABLE on DOS: 03/21/25, XY CHEST XRAY 1 VIEW on DOS: 03/21/25 FINDINGS: Lines and Tubes: Endotracheal tube, enteric catheter, right PICC and right central venous catheter in satisfactory position. Lungs: Unchanged pulmonary edema. Pleura: Small bilateral pleural effusions. No pneumothorax. Cardiomediastinal contours: Cardiomegaly Bones: Unremarkable IMPRESSION: Lines and tubes in satisfactory position. No significant interval change.
[2025-03-25 07:48] LABS: Base Excess -1.6 mmol/L (-2.0-3.0)
--- NOTE | 2025-03-25 09:11 | ECG ---
[facility] Test Date: 2025-03-24 Test Time: 14:00:59 Pat Name: CARMEN BERNAL Department: Respiratoy Room: 0262 A Gender: M Preventive Medicine Physician: GISELA : 1965 Requested By: ALFONZO WALSH Order Number: [id number] Reading MD: Shad Washington Measurements Intervals [place] Rate: 71 P: 12 NV: 173 QRS: 15 QRSD: 101 T: 245 QT: 462 QTc: 503 Interpretive Statements Sinus rhythm Low voltage, extremity leads Borderline repolarization abnormality Prolonged QT interval Electronically Signed On 03-25-2025 18:53:18 PST by Shad Washington Please click the below link to view image of tracing.
--- NOTE | 2025-03-25 09:12 | DVHPN2 ---
Progress Note - Dictate Date Seen: Mar 25, 2025 Medical Necessity Reason Pt with a Central, PICC or Fol: Yes The following are medically ne: Central Line (HD catheter), Olsen Catheter vital signs Vital Sign Date Time Temp Pulse Resp B/P (MAP) Pulse Ox O2 Delivery O2 Flow Rate FiO2 03/25/25 08:35 78 20 107/66 (80) 94 30 03/25/25 06:00 Mechanical Ventilator+ 03/25/25 05:45 98.2 208.8 Total Intake and Output 03/24/25 03/24/25 03/25/25 15:00 23:00 07:00 Intake Total 597.276 ml 745.048 ml 609.167 ml Output Total 1025 ml 550 ml Balance 597.276 ml -279.952 ml 59.167 ml medications Current Medications Medications Dose Ordered Sig/Zainab Route Start Time Stop Time Status Last Admin Dose Admin Acetaminophen/ Hydrocodone Bitart 1 tab Q4HP PRN PO 03/18/25 19:15 03/20/25 22:30 1 TAB Ondansetron HCl 4 mg Q4HP PRN IV 03/18/25 19:15 Acetaminophen 650 mg Q6HP PRN PO 03/18/25 19:15 Nitroglycerin 0.4 mg Q5MINP PRN SL 03/18/25 19:15 Morphine Sulfate 2 mg Q30M PRN IV 03/18/25 19:15 Phenylephrine HCl 80 mg/Sodium Chloride 250 ml @ 7.5 mls/hr Q24H IV 03/19/25 09:15 03/24/25 14:19 12.188 MLS/HR Norepinephrine Bitartrate 32 mg/ Sodium Chloride 250 ml @ 0.938 mls/ hr Q24H IV 03/19/25 09:15 03/23/25 18:44 0.938 MLS/HR Vasopressin 20 units/Sodium Chloride 100 ml @ 9 mls/hr Q11H7M IV 03/19/25 09:15 Hydrocortisone Sodium Succinate 100 mg Q12HR IV 03/19/25 10:00 03/24/25 21:49 100 MG Meropenem 50 ml @ 17 mls/hr DAILY IV 03/19/25 10:00 UNV Daptomycin / Sodium Chloride 50 ml @ 100 mls/hr DAILY IV 03/19/25 10:00 UNV Sodium Chloride 10 ml QSHIFT@10,22 IV 03/19/25 10:00 03/24/25 21:49 10 ML Linezolid 300 ml @ 150 mls/hr Q12HR IV 03/19/25 22:00 03/24/25 21:49 150 MLS/HR Propofol 100 ml @ 2.721 mls/ hr Q24H IV 03/21/25 11:15 03/25/25 00:56 8.163 MLS/HR Midazolam HCl 100 ml @ 1 mls/hr Q24H IV 03/21/25 11:15 03/21/25 10:42 1 MLS/HR Fentanyl Citrate 250 ml @ 2.5 mls/hr Q24H IV 03/21/25 11:15 03/24/25 10:11 7.5 MLS/HR Atorvastatin Calcium 40 mg HS GT 03/21/25 22:00 03/24/25 21:49 40 MG Metolazone 5 mg DAILY GT 03/22/25 10:00 03/24/25 12:40 5 MG Enteral Nutritional Formula 1,000 ml 30ML/HR GT 03/23/25 11:45 03/23/25 20:13 1,000 ML Vancomycin HCl 0 ml @ 0 mls/hr PER PHARMACY IV 03/23/25 22:45 UNV Bumetanide 2.5 mg DAILY IV 03/24/25 10:00 03/24/25 12:40 2.5 MG Dobutamine HCl/ Dextrose 250 ml @ 12.03 mls/ hr [id number] IV 03/24/25 09:45 03/25/25 06:32 12.03 MLS/HR Pantoprazole Sodium 40 mg DAILY IV 03/24/25 10:00 03/24/25 12:41 40 MG Phytonadione 10 mg/Sodium Chloride 51 ml @ 204 mls/hr DAILY IV 03/24/25 12:20 03/26/25 10:14 03/24/25 12:51 204 MLS/HR Mupirocin 1 applic BID EACHNOSTRI 03/25/25 10:00 03/30/25 09:59 laboratory and microbiology Laboratory Tests 03/25/25 02:55 Test 03/25/25 02:55 Range/Units Serum Glucose 163 H 74-106 mg/dL Assessment/Plan Impression Acute hypoxemic respiratory failure Hx of substance abuse Bacteremia ROBERTO Patient seen and examined in ICU Events On mechanical ventilation S/p intubation PEEP 5, FiO2 30% minimal secretions Persistently bacteremic Labs and imaging reviewed ABG reviewed scheduled for GELY Management Vent support Titrate to maintain sats 90% or above Sedation for vent synchrony Continue antibiotics Change Zyvox to Vancomycin in view of bacteremia F/u cultures and ID Bronchodilators Monitor renal function Monitor electrolytes Supplement as needed Pressors as needed for hemodynamic support To maintain a mean arterial pressure of 65 mmHg GELY pending to rule out endocarditis F/u cardiology Recommend Vitamin K Bronchoscopy deferred in view of minimal secretions DVT prophylaxis Critical care time 35 minutes Dietary Evaluation Review Comments: Nutrition Recommendation: 1) EN Nepro Carbsteady @ 45ml/hr x 24hr (goal) along with Pro-stat 1 pk BID. TF at goal volume along with Pro-stat provide 2144 kcal (100%), 118 gm protein (100%), and 785 ml free water. 2) Consider TPN/PN if NPO>7 days 3) Monitor NPO status, lab values, weight trend, and I/O Expected Outcomes/Goals: Intake to meet >75% estimated needs Lab values to improve FU 2-3 days Plan discussed with: Other (rn) JESSICA RAYMUNDO MD Mar 25, 2025 09:12
--- NOTE | 2025-03-25 09:52 | DVHPN2 ---
Subjective Intubated and sedated Reviewed: Care Plan, H&P, Labs, Medications, Previous Orders Changes from previous H/P or p: No Changes General: Per HPI Objective Vitals Vital Signs Date Time Temp Pulse Resp B/P (MAP) Pulse Ox O2 Delivery O2 Flow Rate FiO2 03/25/25 08:35 78 20 107/66 (80) 94 30 03/25/25 08:00 Mechanical Ventilator+ 03/25/25 05:45 98.2 208.8 Intake/Output Intake and Output 03/25/25 07:00 Intake Total 1951.491 ml Output Total 1575 ml Balance 376.491 ml Intake Oral 90 ml IV Total 1195.491 ml Tube Feeding 606 ml Other 60 ml Output Urine Total 1575 ml General Appearance: mild distress, Other (Intubated, on vent) HEENT: Atraumatic, PERRLA, Other (bleeding from oral mucosa) Lungs: Clear to auscultation, Normal air movement Cardiovascular: Normal S1, Normal S2 Abdomen: Normal bowel sounds, Soft, No tenderness, No hepatospenomegaly, No masses Genitourinary: No Apparent Abnormalities (Olsen catheter) Musculoskeletal: Other (Unable to assess) Neuro: Other (Unable to assess) Skin: Dry, Intact Psych/Mental Status: Other (Intubated, on vent, unable to exam) Medications Current Medications Medications Dose Ordered Sig/Zainab Route Start Time Stop Time Status Last Admin Dose Admin Acetaminophen/ Hydrocodone Bitart 1 tab Q4HP PRN PO 03/18/25 19:15 03/20/25 22:30 1 TAB Ondansetron HCl 4 mg Q4HP PRN IV 03/18/25 19:15 Acetaminophen 650 mg Q6HP PRN PO 03/18/25 19:15 Nitroglycerin 0.4 mg Q5MINP PRN SL 03/18/25 19:15 Morphine Sulfate 2 mg Q30M PRN IV 03/18/25 19:15 Phenylephrine HCl 80 mg/Sodium Chloride 250 ml @ 7.5 mls/hr Q24H IV 03/19/25 09:15 03/24/25 14:19 12.188 MLS/HR Norepinephrine Bitartrate 32 mg/ Sodium Chloride 250 ml @ 0.938 mls/ hr Q24H IV 03/19/25 09:15 03/23/25 18:44 0.938 MLS/HR Vasopressin 20 units/Sodium Chloride 100 ml @ 9 mls/hr Q11H7M IV 03/19/25 09:15 Hydrocortisone Sodium Succinate 100 mg Q12HR IV 03/19/25 10:00 03/24/25 21:49 100 MG Meropenem 50 ml @ 17 mls/hr DAILY IV 03/19/25 10:00 UNV Daptomycin / Sodium Chloride 50 ml @ 100 mls/hr DAILY IV 03/19/25 10:00 UNV Sodium Chloride 10 ml QSHIFT@ IV 03/19/25 10:00 03/24/25 21:49 10 ML Linezolid 300 ml @ 150 mls/hr Q12HR IV 03/19/25 22:00 03/24/25 21:49 150 MLS/HR Propofol 100 ml @ 2.721 mls/ hr Q24H IV 03/21/25 11:15 03/25/25 00:56 8.163 MLS/HR Midazolam HCl 100 ml @ 1 mls/hr Q24H IV 03/21/25 11:15 03/21/25 10:42 1 MLS/HR Fentanyl Citrate 250 ml @ 2.5 mls/hr Q24H IV 03/21/25 11:15 03/24/25 10:11 7.5 MLS/HR Atorvastatin Calcium 40 mg HS GT 03/21/25 22:00 03/24/25 21:49 40 MG Metolazone 5 mg DAILY GT 03/22/25 10:00 03/24/25 12:40 5 MG Enteral Nutritional Formula 1,000 ml 30ML/HR GT 03/23/25 11:45 03/23/25 20:13 1,000 ML Vancomycin HCl 0 ml @ 0 mls/hr PER PHARMACY IV 03/23/25 22:45 UNV Bumetanide 2.5 mg DAILY IV 03/24/25 10:00 03/24/25 12:40 2.5 MG Dobutamine HCl/ Dextrose 250 ml @ 12.03 mls/ hr [id number] IV 03/24/25 09:45 03/25/25 06:32 12.03 MLS/HR Pantoprazole Sodium 40 mg DAILY IV 03/24/25 10:00 03/24/25 12:41 40 MG Phytonadione 10 mg/Sodium Chloride 51 ml @ 204 mls/hr DAILY IV 03/24/25 12:20 03/26/25 10:14 03/24/25 12:51 204 MLS/HR Mupirocin 1 applic BID EACHNOSTRI 03/25/25 10:00 03/30/25 09:59 Laboratory Results Laboratory Tests 03/25/25 02:55 Chemistry Test 03/25/25 02:55 Albumin 2.9 g/dL (3.2-4.8) L Calcium Level 6.7 mg/dL (8.7-10.4) L Total Protein 5.4 g/dL (5.7-8.2) L LFT Test 03/25/25 02:55 Alanine Aminotransferase (ALT) 54 U/L (7-40) H Alkaline Phosphatase 303 U/L (46-116) H Aspartate Amino Transferase (AST) 126 U/L (13-40) H Total Bilirubin 4.3 mg/dL (0.2-1.0) H Urinalysis Test 03/21/25 00:00 03/21/25 03:10 Urine Color Dark-yellow (Yellow) Urine Clarity Turbid (Clear) H Urine pH 6.0 (5.0-9.0) Urine Specific [place] 1.014 (1.001-1.035) Urine Protein 2+ (Negative) H Urine Ketones Negative (Negative) Urine Blood 3+ /uL (Negative) H Urine Nitrite Negative (Negative) Urine Bilirubin 1+ (Negative) Urine Urobilinogen Normal mg/dL (Negative) Urine Leukocyte Esterase 2+ /uL (Negative) Urine RBC 896 /hpf (0 - 3) Urine Microscopic WBC 37 /HPF (0-3) H Urine Squamous Epithelial Cells Few /hpf (<5) Urine Bacteria None seen /hpf (None Seen) Urine Sperm Present /hpf (None Seen) Urine Glucose 1+ mg/dL (Normal) H Urine Creatinine 35.89 mg/dL (30.0-125.0) Urine Protein/Creatinine Ratio 30.21 Urine Sodium 95 mmol/L (40-220) Urine Total Protein 1084.4 mg/dL (1-14) H Blood Gas Results Test 03/25/25 07:24 Arterial Blood pH 7.404 (7.350-7.450) FiO2 % 30.0 Microbiology Microbiology Date/Time Source Procedure Growth Status 03/23/25 17:50 Blood Blood Culture - Preliminary NO GROWTH AFTER 24 HOURS OF INCUBATION. Resulted 03/21/25 11:31 Sputum Gram Stain - Final Complete 03/21/25 11:31 Respiratory Culture - Final Methicillin Resistant S.aureus Complete 03/21/25 02:30 Urine - Olsen Port Urine Culture - Final Complete 03/19/25 23:20 Nose MRSA Screen - Final Methicillin Resistant S.aureus Complete Labs and/or images reviewed: Labs reviewed by me, Image(s) reviewed by me Assessment/Plan Assessment/Plan Impression: -septic shock -acute hypoxic respiratory failure -acute on chronic systolic and diastolic heart failure -right pleural effusion -acute kidney injury -chronic kidney disease stage IIIB/four -PE ruled out -history of polysubstance abuse -thrombocytopenia -metabolic encephalopathy Plan: Events: No events overnight -nephrology consultation: HD yesterday -continue vasopressor therapy -continue Zyvox -Repeat blood culture preliminary no growth -bronchodilators -PPI -continue current vent settings. -nephrology and cardiology consultation -repeat labs, chest x ray, abg,in a.m. Critical care time spent with patient discussing and formulating plan of care: 40 minutes. This does not include time spent performing procedures. This medical document was created using an electronic medical record system with [employer] dictation system. Although this document has been carefully reviewed, there may still be some phonetic and typographical errors. These areas are purely typographical due to imperfections of the software programs, and do not reflect any compromise in the patient's medical care. Plan discussed with: Patient, Other (RN) My Orders Orders - ANGELA VAUGHAN NP Procedure Category Date Status Time Mupirocin 2% Oint PHA 03/25/25 In Process Mrsa Nares (Bactroban 10:00 PTPTT LAB 03/26/25 Verified 04:00 Date of Service: Mar 25, 2025 Billing Provider: ANGELA VAUGHAN NP Common Visit Codes: [id number] CARE 30-74 MIN ANGELA VAUGHAN NP Mar 25, 2025 09:51
--- NOTE | 2025-03-25 11:03 | DVHPN2 ---
Consult Progress Note Subjective Other Systems: Patient is in normal sinus rhythm on site monitor at time of assessment. Patient had nonsustained V-tach overnight Objective vital signs Vital Sign Date Time Temp Pulse Resp B/P (MAP) Pulse Ox O2 Delivery O2 Flow Rate FiO2 03/25/25 10:15 97.9 68 20 106/63 (77) 95 208.2 03/25/25 09:38 Mechanical Ventilator+ 30 30 Total Intake and Output 03/24/25 03/24/25 03/25/25 15:00 23:00 07:00 Intake Total 597.276 ml 745.048 ml 649.048 ml Output Total 1025 ml 550 ml Balance 597.276 ml -279.952 ml 99.048 ml medications Current Medications Medications Dose Ordered Sig/Zainab Route Start Time Stop Time Status Last Admin Dose Admin Acetaminophen/ Hydrocodone Bitart 1 tab Q4HP PRN PO 03/18/25 19:15 03/20/25 22:30 Ondansetron HCl 4 mg Q4HP PRN IV 03/18/25 19:15 Acetaminophen 650 mg Q6HP PRN PO 03/18/25 19:15 Nitroglycerin 0.4 mg Q5MINP PRN SL 03/18/25 19:15 Morphine Sulfate 2 mg Q30M PRN IV 03/18/25 19:15 Phenylephrine HCl 80 mg/Sodium Chloride 250 ml @ 7.5 mls/hr Q24H IV 03/19/25 09:15 03/24/25 14:19 Norepinephrine Bitartrate 32 mg/ Sodium Chloride 250 ml @ 0.938 mls/ hr Q24H IV 03/19/25 09:15 03/23/25 18:44 Vasopressin 20 units/Sodium Chloride 100 ml @ 9 mls/hr Q11H7M IV 03/19/25 09:15 Hydrocortisone Sodium Succinate 100 mg Q12HR IV 03/19/25 10:00 03/24/25 21:49 Meropenem 50 ml @ 17 mls/hr DAILY IV 03/19/25 10:00 UNV Daptomycin / Sodium Chloride 50 ml @ 100 mls/hr DAILY IV 03/19/25 10:00 UNV Sodium Chloride 10 ml QSHIFT@10,22 IV 03/19/25 10:00 03/24/25 21:49 Linezolid 300 ml @ 150 mls/hr Q12HR IV 03/19/25 22:00 03/24/25 21:49 Propofol 100 ml @ 2.721 mls/ hr Q24H IV 03/21/25 11:15 03/25/25 00:56 Midazolam HCl 100 ml @ 1 mls/hr Q24H IV 03/21/25 11:15 03/21/25 10:42 Fentanyl Citrate 250 ml @ 2.5 mls/hr Q24H IV 03/21/25 11:15 03/24/25 10:11 Atorvastatin Calcium 40 mg HS GT 03/21/25 22:00 03/24/25 21:49 Metolazone 5 mg DAILY GT 03/22/25 10:00 03/24/25 12:40 Enteral Nutritional Formula 1,000 ml 30ML/HR GT 03/23/25 11:45 03/23/25 20:13 Vancomycin HCl 0 ml @ 0 mls/hr PER PHARMACY IV 03/23/25 22:45 UNV Bumetanide 2.5 mg DAILY IV 03/24/25 10:00 03/24/25 12:40 Dobutamine HCl/ Dextrose 250 ml @ 12.03 mls/ hr [id number] IV 03/24/25 09:45 03/25/25 06:32 Pantoprazole Sodium 40 mg DAILY IV 03/24/25 10:00 03/24/25 12:41 Phytonadione 10 mg/Sodium Chloride 51 ml @ 204 mls/hr DAILY IV 03/24/25 12:20 03/26/25 10:14 03/24/25 12:51 Mupirocin 1 applic BID EACHNOSTRI 03/25/25 10:00 03/30/25 09:59 Examination: GENERAL:Abnormal, LUNGS:Abnormal (Mechanically ventilated), CVS:Normal, NEURO:Abnormal (Chemically sedated; easily arousable) laboratory and microbiology Laboratory Tests 03/25/25 02:55 Test 03/25/25 02:55 Range/Units Serum Glucose 163 H 74-106 mg/dL Problem List/Assessment/Plan Problem List/Assessment/Plan Acute on Chronic HFrEF, EF 15% (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 Washington) Plan: Transthoracic echocardiogram revealed LVEF 20% with severe global hypokinesis, biatrial and biventricular enlargement, aortic root enlargement, mild thickening of the mitral leaflets, mild mitral annular calcification, mild aortic sclerosis, diminished RV function, doming of the interventricular septum in systole and diastole consistent with a pressure in the volume overload/pulmonary hypertension. Initially scheduled for a transesophageal echocardiogram on 03/25/2025 to rule out subacute infective endocarditis. Given oral bleed, we will await for resolution and re-schedule GELY accordingly. In the meantime, discontinue Lovenox or any other AC/antiplatelet therapy given oral bleeding, thrombocytopenia, and downtrending hemoglobin (currently in NSR). [id number] VASc score: 2 points, HAS-BLED score: 4 points. Initiate SCDs in the meantime. Continue PPI. Hold antiarrhythmic therapy, as patient is allergic to amiodarone. Continue preload and afterload reduction with Dobutamine drip. Continue vasopressor for hemodynamic support. Initiate GDMT for CHF as renal function and hemodynamics permit. Continue Nephrology recommendations. DVT/VTE prophylaxis: SCDs. Consider GI consultation. Further orders per clinical course. Thank you for allowing us to care for this patient. Critical care time: 30 min. This medical document was created using an electronic medical record system with voice recognition software and computerized dictation system. Although this document has been carefully reviewed, there might still be some phonetic and typographical errors. Occasional wrong-word or ``sound-alike substitutions may have occurred due to the inherent limitations of voice recognition software. These areas are purely typographical due to imperfections of the software programs and do not reflect any compromise in the patient's medical care. Please read the chart carefully and recognize, using context, where these substitutions have occurred. Plan discussed with: Patient, Other Dietary Evaluation Review Comments: Nutrition Recommendation: 1) EN Nepro Carbsteady @ 45ml/hr x 24hr (goal) along with Pro-stat 1 pk BID. TF at goal volume along with Pro-stat provide 2144 kcal (100%), 118 gm protein (100%), and 785 ml free water. 2) Consider TPN/PN if NPO>7 days 3) Monitor NPO status, lab values, weight trend, and I/O Expected Outcomes/Goals: Intake to meet >75% estimated needs Lab values to improve FU 2-3 days Date of Service: Mar 25, 2025 Billing Provider: SANDEEP VALDEZ Common Visit Codes: [id number] CARE 30-74 MIN SANDEEP VALDEZ Mar 25, 2025 11:03
[2025-03-25] MEDS: MUPIROCIN 2% OINT 15gm or 22gm FOR MRSA NARES EACHNOSTRI SCH (11:24)
--- NOTE | 2025-03-25 15:57 | DVHPN2 ---
Progress Note Date Seen: Mar 25, 2025 Medical Necessity Reason Pt with a Central, PICC or Fol: Yes The following are medically ne: Central Line (HD catheter), Olsen Catheter Objective vital signs Vital Sign Date Time Temp Pulse Resp B/P (MAP) Pulse Ox O2 Delivery O2 Flow Rate FiO2 03/25/25 14:30 65 20 114/69 (84) 99 30 03/25/25 10:15 97.9 208.2 03/25/25 09:38 Mechanical Ventilator+ Total Intake and Output 03/24/25 03/24/25 03/25/25 15:00 23:00 07:00 Intake Total 597.276 ml 745.048 ml 649.048 ml Output Total 1025 ml 550 ml Balance 597.276 ml -279.952 ml 99.048 ml medications Current Medications Medications Dose Ordered Sig/Zainab Route Start Time Stop Time Status Last Admin Dose Admin Acetaminophen/ Hydrocodone Bitart 1 tab Q4HP PRN PO 03/18/25 19:15 03/20/25 22:30 1 TAB Ondansetron HCl 4 mg Q4HP PRN IV 03/18/25 19:15 Acetaminophen 650 mg Q6HP PRN PO 03/18/25 19:15 Nitroglycerin 0.4 mg Q5MINP PRN SL 03/18/25 19:15 Morphine Sulfate 2 mg Q30M PRN IV 03/18/25 19:15 Phenylephrine HCl 80 mg/Sodium Chloride 250 ml @ 7.5 mls/hr Q24H IV 03/19/25 09:15 03/25/25 14:02 7.5 MLS/HR Norepinephrine Bitartrate 32 mg/ Sodium Chloride 250 ml @ 0.938 mls/ hr Q24H IV 03/19/25 09:15 03/23/25 18:44 0.938 MLS/HR Vasopressin 20 units/Sodium Chloride 100 ml @ 9 mls/hr Q11H7M IV 03/19/25 09:15 Hydrocortisone Sodium Succinate 100 mg Q12HR IV 03/19/25 10:00 03/25/25 11:25 100 MG Meropenem 50 ml @ 17 mls/hr DAILY IV 03/19/25 10:00 UNV Daptomycin / Sodium Chloride 50 ml @ 100 mls/hr DAILY IV 03/19/25 10:00 UNV Sodium Chloride 10 ml QSHIFT@10,22 IV 03/19/25 10:00 03/25/25 11:25 10 ML Linezolid 300 ml @ 150 mls/hr Q12HR IV 03/19/25 22:00 03/25/25 11:26 150 MLS/HR Propofol 100 ml @ 2.721 mls/ hr Q24H IV 03/21/25 11:15 03/25/25 14:01 8.163 MLS/HR Midazolam HCl 100 ml @ 1 mls/hr Q24H IV 03/21/25 11:15 03/21/25 10:42 1 MLS/HR Fentanyl Citrate 250 ml @ 2.5 mls/hr Q24H IV 03/21/25 11:15 03/24/25 10:11 7.5 MLS/HR Atorvastatin Calcium 40 mg HS GT 03/21/25 22:00 03/24/25 21:49 40 MG Metolazone 5 mg DAILY GT 03/22/25 10:00 03/25/25 11:24 5 MG Enteral Nutritional Formula 1,000 ml 30ML/HR GT 03/23/25 11:45 03/23/25 20:13 1,000 ML Vancomycin HCl 0 ml @ 0 mls/hr PER PHARMACY IV 03/23/25 22:45 UNV Bumetanide 2.5 mg DAILY IV 03/24/25 10:00 03/25/25 11:25 2.5 MG Dobutamine HCl/ Dextrose 250 ml @ 12.03 mls/ hr [id number] IV 03/24/25 09:45 03/25/25 06:32 12.03 MLS/HR Pantoprazole Sodium 40 mg DAILY IV 03/24/25 10:00 03/25/25 11:25 40 MG Phytonadione 10 mg/Sodium Chloride 51 ml @ 204 mls/hr DAILY IV 03/24/25 12:20 03/26/25 10:14 03/25/25 11:25 204 MLS/HR Mupirocin 1 applic BID EACHNOSTRI 03/25/25 10:00 03/30/25 09:59 03/25/25 11:24 1 APPLIC Examination: GENERAL:Abnormal, CVS:Normal, SKIN:Normal laboratory and microbiology Laboratory Tests 03/25/25 02:55 Test 03/25/25 02:55 Range/Units Serum Glucose 163 H 74-106 mg/dL Microbiology Date/Time Source Procedure Growth Status 03/23/25 17:50 Blood Blood Culture - Preliminary NO GROWTH AFTER 24 HOURS OF INCUBATION. Resulted 03/21/25 11:31 Sputum Gram Stain - Final Complete 03/21/25 11:31 Respiratory Culture - Final Methicillin Resistant S.aureus Complete 03/21/25 02:30 Urine - Olsen Port Urine Culture - Final Complete 03/19/25 23:20 Nose MRSA Screen - Final Methicillin Resistant S.aureus Complete Problem List/Assessment/Plan Problem List/Assessment/Plan This is a 59-year-old male with past medical history of heart failure (HFrEF, methamphetamine induced, EF 15%), permanent AFib (on Eliquis), BPH, recurrent right-sided pleural effusion/thoracentesis, hypertension and dyslipidemia came to the hospital due to shortness of breath since 3 days. Nephrology is consulted due to raised creatinine. ROBERTO, on CKD 2, due to septic/cardiogenic shock-----> required acute Hd last 03/22 Acute respiratory failure intubated 03/21 Hyponatremia, likely due to advanced heart failure Septic shock, MRSA bacteremia Acute on chronic systolic heart failure NSTEMI AFib, with a RVR Hypertension Dyslipidemia Cirrhosis methamphetamine abuse Plan/recommendation: s/p leisa cath intubated but awake uop is good partial renal recovery last HD yesterday will hold off today monitor next 48hrs bumex drip to IVP IV ABX on merrem and Zyvox strict I/O guarded prognosis Plan discussed with: Patient Dietary Evaluation Review Comments: Nutrition Recommendation: 1) EN Nepro Carbsteady @ 45ml/hr x 24hr (goal) along with Pro-stat 1 pk BID. TF at goal volume along with Pro-stat provide 2144 kcal (100%), 118 gm protein (100%), and 785 ml free water. 2) Consider TPN/PN if NPO>7 days 3) Monitor NPO status, lab values, weight trend, and I/O Expected Outcomes/Goals: Intake to meet >75% estimated needs Lab values to improve FU 2-3 days FEDERICO HANSEN MD Mar 25, 2025 15:57
[2025-03-26] VITALS (109 sets, daily range): BP systolic 83–131; BP diastolic 43–81; PULSE 64–132; RESP 14–24; TEMP 97–98.6; O2SAT 90–100
[2025-03-26 03:04] LABS: Hemoglobin 9.0 g/dL (13.5-17.5); Mean Corpuscular Volume 74.3 fL (80.0-100.0)
[2025-03-26 03:06] LABS: Hematocrit 28.1 % (41.0-53.0); Mean Corpuscular Hemoglobin 23.8 pg (28.0-32.0); Nucleated Red Blood Cells % 0.0 %
[2025-03-26 03:17] LABS: INR 1.19 (0.9-1.15); Partial Thromboplastin Time 28.5 SEC (24.5-34.5); Prothrombin Time 12.4 sec (9.3-11.8)
[2025-03-26 03:20] LABS: Anion Gap 16 (5-15); BUN/Creatinine Ratio 25.1 (10.0-20.0); Carbon Dioxide 27 mmol/L (20-31); Potassium 4.0 mmol/L (3.5-5.1); Sodium 137 mmol/L (136-145); Total Protein 5.8 g/dL (5.7-8.2)
[2025-03-26 03:21] LABS: Alanine Aminotransferase 65 U/L (7-40); Alkaline Phosphatase 344 U/L (46-116); Calcium 7.4 mg/dL (8.7-10.4); Chloride 94 mmol/L (98-107); Glucose 171 mg/dL (74-106)
[2025-03-26 03:22] LABS: Albumin 3.2 g/dL (3.2-4.8); Bilirubin, Total 4.3 mg/dL (0.2-1.0); Blood Urea Nitrogen 108 mg/dL (9-23)
--- NOTE | 2025-03-26 05:32 | DVH ---
CHEST RADIOGRAPH Indication: pna Technique: Single frontal view of the chest was obtained Comparison CHEST PORTABLE on DOS: 03/25/25 FINDINGS: Lines and Tubes: The endotracheal tube terminates 6.6 cm above the ramses. The enteric tube courses below the left hemidiaphragm and the tip extends outside the field of view. Right PICC terminates in the superior vena cava. There is a right central venous catheter with its tip terminating in the superior vena cava. Lungs: Bilateral alveolar consolidation. Pleura: Large bilateral pleural effusions. No pneumothorax. Cardiomediastinal contours: Cardiomegaly. Bones: No acute osseous abnormality. IMPRESSION: 1. Cardiomegaly with CHF. 2. Large bilateral pleural effusions. 3. Support lines and tubes as described above.
[2025-03-26 07:05] LABS: Base Excess 0.1 mmol/L (-2.0-3.0)
--- NOTE | 2025-03-26 09:18 | DVHPN2 ---
Subjective Intubated and sedated Reviewed: Care Plan, H&P, Labs, Medications, Previous Orders Changes from previous H/P or p: No Changes General: Per HPI Objective Vitals Vital Signs Date Time Temp Pulse Resp B/P (MAP) Pulse Ox O2 Delivery O2 Flow Rate FiO2 03/26/25 07:12 68 20 113/62 (79) 95 30 03/26/25 06:30 97.7 207.9 03/26/25 06:00 Mechanical Ventilator+ Intake/Output Intake and Output 03/26/25 07:00 Intake Total 1926.701 ml Output Total 1525 ml Balance 401.701 ml Intake Oral 60 ml IV Total 1404.701 ml Tube Feeding 402 ml Other 60 ml Output Urine Total 1525 ml General Appearance: mild distress, Other (Intubated, on vent) HEENT: Atraumatic, PERRLA, Other (bleeding from oral mucosa) Lungs: Clear to auscultation, Normal air movement Cardiovascular: Normal S1, Normal S2 Abdomen: Normal bowel sounds, Soft, No tenderness, No hepatospenomegaly, No masses Genitourinary: No Apparent Abnormalities (Olsen catheter) Musculoskeletal: Other (Unable to assess) Neuro: Other (Unable to assess) Skin: Dry, Intact Psych/Mental Status: Other (Intubated, on vent, unable to exam) Medications Current Medications Medications Dose Ordered Sig/Zainab Route Start Time Stop Time Status Last Admin Dose Admin Ondansetron HCl 4 mg Q4HP PRN IV 03/18/25 19:15 Acetaminophen 650 mg Q6HP PRN PO 03/18/25 19:15 Nitroglycerin 0.4 mg Q5MINP PRN SL 03/18/25 19:15 Phenylephrine HCl 80 mg/Sodium Chloride 250 ml @ 7.5 mls/hr Q24H IV 03/19/25 09:15 03/25/25 14:02 7.5 MLS/HR Norepinephrine Bitartrate 32 mg/ Sodium Chloride 250 ml @ 0.938 mls/ hr Q24H IV 03/19/25 09:15 03/23/25 18:44 0.938 MLS/HR Vasopressin 20 units/Sodium Chloride 100 ml @ 9 mls/hr Q11H7M IV 03/19/25 09:15 Hydrocortisone Sodium Succinate 100 mg Q12HR IV 03/19/25 10:00 03/25/25 21:52 100 MG Meropenem 50 ml @ 17 mls/hr DAILY IV 03/19/25 10:00 UNV Daptomycin / Sodium Chloride 50 ml @ 100 mls/hr DAILY IV 03/19/25 10:00 UNV Sodium Chloride 10 ml QSHIFT@10,22 IV 03/19/25 10:00 03/25/25 21:52 10 ML Linezolid 300 ml @ 150 mls/hr Q12HR IV 03/19/25 22:00 03/25/25 21:52 150 MLS/HR Propofol 100 ml @ 2.721 mls/ hr Q24H IV 03/21/25 11:15 03/26/25 04:38 8.163 MLS/HR Midazolam HCl 100 ml @ 1 mls/hr Q24H IV 03/21/25 11:15 03/21/25 10:42 1 MLS/HR Fentanyl Citrate 250 ml @ 2.5 mls/hr Q24H IV 03/21/25 11:15 03/25/25 16:16 7.5 MLS/HR Atorvastatin Calcium 40 mg HS GT 03/21/25 22:00 03/25/25 21:52 40 MG Metolazone 5 mg DAILY GT 03/22/25 10:00 03/25/25 11:24 5 MG Vancomycin HCl 0 ml @ 0 mls/hr PER PHARMACY IV 03/23/25 22:45 UNV Bumetanide 2.5 mg DAILY IV 03/24/25 10:00 03/25/25 11:25 2.5 MG Dobutamine HCl/ Dextrose 250 ml @ 12.03 mls/ hr [id number] IV 03/24/25 09:45 03/26/25 03:19 12.03 MLS/HR Pantoprazole Sodium 40 mg DAILY IV 03/24/25 10:00 03/25/25 11:25 40 MG Mupirocin 1 applic BID EACHNOSTRI 03/25/25 10:00 03/30/25 09:59 03/25/25 21:53 1 APPLIC Enteral Nutritional Formula 1,000 ml 40ML/HR GT 03/26/25 08:15 Laboratory Results Laboratory Tests 03/26/25 02:42 Chemistry Test 03/26/25 02:42 Albumin 3.2 g/dL (3.2-4.8) Calcium Level 7.4 mg/dL (8.7-10.4) L Total Protein 5.8 g/dL (5.7-8.2) Coagulation Test 03/26/25 02:42 Prothrombin Time 12.4 sec (9.3-11.8) H Prothrombin Time INR 1.19 (0.9-1.15) H Activated Partial Thromboplast Time 28.5 SEC (24.5-34.5) LFT Test 03/26/25 02:42 Alanine Aminotransferase (ALT) 65 U/L (7-40) H Alkaline Phosphatase 344 U/L (46-116) H Aspartate Amino Transferase (AST) 133 U/L (13-40) H Total Bilirubin 4.3 mg/dL (0.2-1.0) H Urinalysis Test 03/21/25 00:00 03/21/25 03:10 Urine Color Dark-yellow (Yellow) Urine Clarity Turbid (Clear) H Urine pH 6.0 (5.0-9.0) Urine Specific [place] 1.014 (1.001-1.035) Urine Protein 2+ (Negative) H Urine Ketones Negative (Negative) Urine Blood 3+ /uL (Negative) H Urine Nitrite Negative (Negative) Urine Bilirubin 1+ (Negative) Urine Urobilinogen Normal mg/dL (Negative) Urine Leukocyte Esterase 2+ /uL (Negative) Urine RBC 896 /hpf (0 - 3) Urine Microscopic WBC 37 /HPF (0-3) H Urine Squamous Epithelial Cells Few /hpf (<5) Urine Bacteria None seen /hpf (None Seen) Urine Sperm Present /hpf (None Seen) Urine Glucose 1+ mg/dL (Normal) H Urine Creatinine 35.89 mg/dL (30.0-125.0) Urine Protein/Creatinine Ratio 30.21 Urine Sodium 95 mmol/L (40-220) Urine Total Protein 1084.4 mg/dL (1-14) H Blood Gas Results Test 03/26/25 06:47 Arterial Blood pH 7.412 (7.350-7.450) FiO2 % 30.0 Microbiology Microbiology Date/Time Source Procedure Growth Status 03/23/25 17:50 Blood Blood Culture - Preliminary NO GROWTH AFTER 48 HOURS OF INCUBATION. Resulted 03/21/25 11:31 Sputum Gram Stain - Final Complete 03/21/25 11:31 Respiratory Culture - Final Methicillin Resistant S.aureus Complete 03/21/25 02:30 Urine - Olsen Port Urine Culture - Final Complete 03/19/25 23:20 Nose MRSA Screen - Final Methicillin Resistant S.aureus Complete Labs and/or images reviewed: Labs reviewed by me, Image(s) reviewed by me Assessment/Plan Assessment/Plan Impression: -septic shock -acute hypoxic respiratory failure -acute on chronic systolic and diastolic heart failure -right pleural effusion -acute kidney injury -chronic kidney disease stage IIIB/four -PE ruled out -history of polysubstance abuse -thrombocytopenia -metabolic encephalopathy Plan: Events: Patient had insertion site bleeding from HD catheter yesterday. Manual pressure held by myself with Surgicel snow, with hemostasis achieved. Patient also hypocoagulable with 1 unit of FFP provided. Vasopressors weaned off this a.m.. Chest x-ray with persistent pulmonary vascular congestion, opacities with pneumonia -stop hydrocortisone -abdominal ultrasound to assess ascites for possible paracentesis -nephrology consultation: HD per their discretion. Patient continues to be on Bumex IV push -continue vasopressor therapy -continue Zyvox -bronchodilators -PPI -continue current vent settings. -nephrology and cardiology consultation -repeat labs, chest x ray, abg,in a.m. Critical care time spent with patient discussing and formulating plan of care: 40 minutes. This does not include time spent performing procedures. This medical document was created using an electronic medical record system with [employer] dictation system. Although this document has been carefully reviewed, there may still be some phonetic and typographical errors. These areas are purely typographical due to imperfections of the software programs, and do not reflect any compromise in the patient's medical care. Plan discussed with: Patient, Other (RN) My Orders Orders - ANGELA VAUGHAN NP Procedure Category Date Status Time Obtain Consent For: ORDERS 03/25/25 Transmitted 15:51 Frozen Plasma BBK 03/25/25 Logged 15:51 Vital Signs MICHAEL 03/25/25 In Process 15:51 Administer Blood MICHAEL 03/25/25 In Process Products 15:51 Nutritional PHA 03/26/25 In Process Supplements (Nepro 08:15 Abdomen Limited US 03/26/25 Verified 09:13 Date of Service: Mar 26, 2025 Billing Provider: SALBINO,MI[employer]SEM[employer]TER Common Visit Codes: [id number] CARE 30-74 MIN ANGELA VAUGHAN NP Mar 26, 2025 09:18
--- NOTE | 2025-03-26 10:33 | DVHPN2 ---
Consult Progress Note Subjective Other Systems: The patient remains in normal sinus rhythm on wild life photographer at time of assessment. Patient remains chemically sedated and mechanically ventilated. Objective vital signs Vital Sign Date Time Temp Pulse Resp B/P (MAP) Pulse Ox O2 Delivery O2 Flow Rate FiO2 03/26/25 09:16 71 22 99/54 (69) 93 30 03/26/25 06:30 97.7 207.9 03/26/25 06:00 Mechanical Ventilator+ Total Intake and Output 03/25/25 03/25/25 03/26/25 15:00 23:00 07:00 Intake Total 632.544 ml 586.241 ml 707.916 ml Output Total 825 ml 700 ml Balance 632.544 ml -238.759 ml 7.916 ml medications Current Medications Medications Dose Ordered Sig/Zainab Route Start Time Stop Time Status Last Admin Dose Admin Ondansetron HCl 4 mg Q4HP PRN IV 03/18/25 19:15 Acetaminophen 650 mg Q6HP PRN PO 03/18/25 19:15 Nitroglycerin 0.4 mg Q5MINP PRN SL 03/18/25 19:15 Phenylephrine HCl 80 mg/Sodium Chloride 250 ml @ 7.5 mls/hr Q24H IV 03/19/25 09:15 03/25/25 14:02 7.5 MLS/HR Norepinephrine Bitartrate 32 mg/ Sodium Chloride 250 ml @ 0.938 mls/ hr Q24H IV 03/19/25 09:15 03/23/25 18:44 0.938 MLS/HR Vasopressin 20 units/Sodium Chloride 100 ml @ 9 mls/hr Q11H7M IV 03/19/25 09:15 Meropenem 50 ml @ 17 mls/hr DAILY IV 03/19/25 10:00 UNV Daptomycin / Sodium Chloride 50 ml @ 100 mls/hr DAILY IV 03/19/25 10:00 UNV Sodium Chloride 10 ml QSHIFT@10,22 IV 03/19/25 10:00 03/25/25 21:52 10 ML Linezolid 300 ml @ 150 mls/hr Q12HR IV 03/19/25 22:00 03/25/25 21:52 150 MLS/HR Propofol 100 ml @ 2.721 mls/ hr Q24H IV 03/21/25 11:15 03/26/25 04:38 8.163 MLS/HR Midazolam HCl 100 ml @ 1 mls/hr Q24H IV 03/21/25 11:15 03/21/25 10:42 1 MLS/HR Fentanyl Citrate 250 ml @ 2.5 mls/hr Q24H IV 03/21/25 11:15 03/25/25 16:16 7.5 MLS/HR Atorvastatin Calcium 40 mg HS GT 03/21/25 22:00 03/25/25 21:52 40 MG Metolazone 5 mg DAILY GT 03/22/25 10:00 03/25/25 11:24 5 MG Vancomycin HCl 0 ml @ 0 mls/hr PER PHARMACY IV 03/23/25 22:45 UNV Bumetanide 2.5 mg DAILY IV 03/24/25 10:00 03/25/25 11:25 2.5 MG Dobutamine HCl/ Dextrose 250 ml @ 12.03 mls/ hr [id number] IV 03/24/25 09:45 03/26/25 03:19 12.03 MLS/HR Pantoprazole Sodium 40 mg DAILY IV 03/24/25 10:00 03/25/25 11:25 40 MG Mupirocin 1 applic BID EACHNOSTRI 03/25/25 10:00 03/30/25 09:59 03/25/25 21:53 1 APPLIC Enteral Nutritional Formula 1,000 ml 40ML/HR GT 03/26/25 08:15 Examination: GENERAL:Abnormal, LUNGS:Abnormal (Mechanically ventilated), CVS:Normal, NEURO:Abnormal (Chemically sedated) laboratory and microbiology Laboratory Tests 03/26/25 02:42 Test 03/26/25 09:49 Range/Units Serum Glucose Pending Problem List/Assessment/Plan Problem List/Assessment/Plan Acute on Chronic HFrEF, EF 15% (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 [place]) Plan: Transthoracic echocardiogram revealed LVEF 20% with severe global hypokinesis, biatrial and biventricular enlargement, aortic root enlargement, mild thickening of the mitral leaflets, mild mitral annular calcification, mild aortic sclerosis, diminished RV function, doming of the interventricular septum in systole and diastole consistent with a pressure in the volume overload/pulmonary hypertension. Initially scheduled for a transesophageal echocardiogram on 03/25/2025 to rule out subacute infective endocarditis. Given oral bleed, we will await for resolution and re-schedule GELY accordingly. In the meantime, discontinue Lovenox or any other AC/antiplatelet therapy given oral bleeding, thrombocytopenia, and downtrending hemoglobin (currently in NSR). [id number] VASc score: 2 points, HAS-BLED score: 4 points. Continue SCDs in the meantime. Continue PPI. Hold antiarrhythmic therapy, as patient is allergic to amiodarone. Continue preload and afterload reduction with Dobutamine drip. Continue vasopressor for hemodynamic support. Initiate GDMT for CHF as renal function and hemodynamics permit. Continue Nephrology recommendations. DVT/VTE prophylaxis: SCDs. Consider GI consultation given oral bleed and positive stool occult findings. Further orders per clinical course. Thank you for allowing us to care for this patient. Critical care time: 30 min. This medical document was created using an electronic medical record system with voice recognition software and computerized dictation system. Although this document has been carefully reviewed, there might still be some phonetic and typographical errors. Occasional wrong-word or ``sound-alike substitutions may have occurred due to the inherent limitations of voice recognition software. These areas are purely typographical due to imperfections of the software programs and do not reflect any compromise in the patient's medical care. Please read the chart carefully and recognize, using context, where these substitutions have occurred. Plan discussed with: Other (Bedside RN Aleksandra) Dietary Evaluation Review Comments: Nutrition Recommendation: 1) EN Nepro Carbsteady @ 45ml/hr x 24hr (goal) along with Pro-stat 1 pk BID. TF at goal volume along with Pro-stat provide 2144 kcal (100%), 118 gm protein (100%), and 785 ml free water. 2) Consider TPN/PN if NPO>7 days 3) Monitor NPO status, lab values, weight trend, and I/O Expected Outcomes/Goals: Intake to meet >75% estimated needs Lab values to improve FU 2-3 days CC Plasma Assessment Blood Product Administration S: [id number] Date of Service: Mar 26, 2025 Billing Provider: SANDEEP VALDEZ Common Visit Codes: [id number] CARE 30-74 MIN SANDEEP VALDEZ Mar 26, 2025 10:33
[2025-03-26 10:39] LABS: Anion Gap 15 (5-15); Carbon Dioxide 26 mmol/L (20-31); Potassium 4.0 mmol/L (3.5-5.1)
--- NOTE | 2025-03-26 10:42 | DVH ---
CLINICAL INFORMATION: Ascites. TECHNIQUE: Grayscale sonographic imaging of the abdomen was performed to evaluate for ascites. All 4 quadrants were evaluated. COMPARISON: US LIVER on DOS: 03/19/25, US ABDOMEN COMPLETE on DOS: 12/20/22 FINDINGS: There is fluid visualized in all 4 quadrants of the abdomen consistent with ascites. There are also small bilateral pleural effusions. IMPRESSION: 1. Ascites demonstrated in all 4 quadrants of the abdomen. 2. Small bilateral pleural effusions incidentally noted.
[2025-03-26 10:45] LABS: BUN/Creatinine Ratio 24.1 (10.0-20.0)
[2025-03-26 11:55] LABS: Chloride 93 mmol/L (98-107); Glucose 227 mg/dL (74-106); Sodium 134 mmol/L (136-145)
[2025-03-26 11:57] LABS: Blood Urea Nitrogen 105 mg/dL (9-23); Calcium 7.1 mg/dL (8.7-10.4)
--- NOTE | 2025-03-26 13:38 | DVHPN2 ---
Progress Note - Dictate Date Seen: Mar 26, 2025 Medical Necessity Reason Pt with a Central, PICC or Fol: Yes The following are medically ne: Central Line (HD catheter), Olsen Catheter vital signs Vital Sign Date Time Temp Pulse Resp B/P (MAP) Pulse Ox O2 Delivery O2 Flow Rate FiO2 03/26/25 12:00 20 95 Mechanical Ventilator+ 30 30 03/26/25 11:48 72 102/57 (72) 03/26/25 06:30 97.7 207.9 Total Intake and Output 03/25/25 03/25/25 03/26/25 15:00 23:00 07:00 Intake Total 632.544 ml 586.241 ml 707.916 ml Output Total 825 ml 700 ml Balance 632.544 ml -238.759 ml 7.916 ml medications Current Medications Medications Dose Ordered Sig/Zainab Route Start Time Stop Time Status Last Admin Dose Admin Ondansetron HCl 4 mg Q4HP PRN IV 03/18/25 19:15 Acetaminophen 650 mg Q6HP PRN PO 03/18/25 19:15 Nitroglycerin 0.4 mg Q5MINP PRN SL 03/18/25 19:15 Phenylephrine HCl 80 mg/Sodium Chloride 250 ml @ 7.5 mls/hr Q24H IV 03/19/25 09:15 03/25/25 14:02 7.5 MLS/HR Norepinephrine Bitartrate 32 mg/ Sodium Chloride 250 ml @ 0.938 mls/ hr Q24H IV 03/19/25 09:15 03/23/25 18:44 0.938 MLS/HR Vasopressin 20 units/Sodium Chloride 100 ml @ 9 mls/hr Q11H7M IV 03/19/25 09:15 Meropenem 50 ml @ 17 mls/hr DAILY IV 03/19/25 10:00 UNV Daptomycin / Sodium Chloride 50 ml @ 100 mls/hr DAILY IV 03/19/25 10:00 UNV Sodium Chloride 10 ml QSHIFT@ IV 03/19/25 10:00 03/26/25 10:17 10 ML Linezolid 300 ml @ 150 mls/hr Q12HR IV 03/19/25 22:00 03/26/25 10:16 150 MLS/HR Propofol 100 ml @ 2.721 mls/ hr Q24H IV 03/21/25 11:15 03/26/25 10:16 8.163 MLS/HR Midazolam HCl 100 ml @ 1 mls/hr Q24H IV 03/21/25 11:15 03/21/25 10:42 1 MLS/HR Fentanyl Citrate 250 ml @ 2.5 mls/hr Q24H IV 03/21/25 11:15 03/25/25 16:16 7.5 MLS/HR Atorvastatin Calcium 40 mg HS GT 03/21/25 22:00 03/25/25 21:52 40 MG Metolazone 5 mg DAILY GT 03/22/25 10:00 03/26/25 10:17 5 MG Vancomycin HCl 0 ml @ 0 mls/hr PER PHARMACY IV 03/23/25 22:45 UNV Bumetanide 2.5 mg DAILY IV 03/24/25 10:00 03/26/25 10:17 2.5 MG Dobutamine HCl/ Dextrose 250 ml @ 12.03 mls/ hr [id number] IV 03/24/25 09:45 03/26/25 03:19 12.03 MLS/HR Pantoprazole Sodium 40 mg DAILY IV 03/24/25 10:00 03/26/25 10:17 40 MG Mupirocin 1 applic BID EACHNOSTRI 03/25/25 10:00 03/30/25 09:59 03/26/25 10:17 1 APPLIC Enteral Nutritional Formula 1,000 ml 40ML/HR GT 03/26/25 08:15 laboratory and microbiology Laboratory Tests 03/26/25 09:49 03/26/25 02:42 Test 03/26/25 09:49 Range/Units Serum Glucose 227 H 74-106 mg/dL Assessment/Plan Impression Acute hypoxemic respiratory failure Hx of substance abuse Bacteremia ROBERTO Patient seen and examined in ICU Events On mechanical ventilation S/p intubation PEEP 5, FiO2 30% minimal secretions Persistently bacteremic Labs and imaging reviewed ABG reviewed scheduled for GELY Management Vent support Titrate to maintain sats 90% or above Sedation for vent synchrony Continue antibiotics Change Zyvox to Vancomycin in view of bacteremia F/u cultures and ID Bronchodilators Monitor renal function Monitor electrolytes Supplement as needed Pressors as needed for hemodynamic support To maintain a mean arterial pressure of 65 mmHg GELY pending to rule out endocarditis F/u cardiology Recommend Vitamin K Bronchoscopy deferred in view of minimal secretions DVT prophylaxis Critical care time 35 minutes Dietary Evaluation Review Comments: Nutrition Recommendation: 1) EN Nepro Carbsteady @ 45ml/hr x 24hr (goal) along with Pro-stat 1 pk BID. TF at goal volume along with Pro-stat provide 2144 kcal (100%), 118 gm protein (100%), and 785 ml free water. 2) Consider TPN/PN if NPO>7 days 3) Monitor NPO status, lab values, weight trend, and I/O Expected Outcomes/Goals: Intake to meet >75% estimated needs Lab values to improve FU 2-3 days CC Plasma Assessment Blood Product Administration S: [id number] JESSICA RAYMUNDO MD Mar 26, 2025 13:38
--- NOTE | 2025-03-26 14:27 | DVHPN2 ---
Progress Note Date Seen: Mar 26, 2025 Medical Necessity Reason Pt with a Central, PICC or Fol: Yes The following are medically ne: Central Line (HD catheter), Olsen Catheter Subjective Review of Systems: Deferred Objective vital signs Vital Sign Date Time Temp Pulse Resp B/P (MAP) Pulse Ox O2 Delivery O2 Flow Rate FiO2 03/26/25 13:45 74 17 107/58 (74) 94 03/26/25 13:17 30 03/26/25 12:00 97.9 97.9 03/26/25 12:00 Mechanical Ventilator+ Total Intake and Output 03/25/25 03/25/25 03/26/25 15:00 23:00 07:00 Intake Total 632.544 ml 586.241 ml 738.422 ml Output Total 825 ml 700 ml Balance 632.544 ml -238.759 ml 38.422 ml medications Current Medications Medications Dose Ordered Sig/Zainab Route Start Time Stop Time Status Last Admin Dose Admin Ondansetron HCl 4 mg Q4HP PRN IV 03/18/25 19:15 Acetaminophen 650 mg Q6HP PRN PO 03/18/25 19:15 Nitroglycerin 0.4 mg Q5MINP PRN SL 03/18/25 19:15 Phenylephrine HCl 80 mg/Sodium Chloride 250 ml @ 7.5 mls/hr Q24H IV 03/19/25 09:15 03/25/25 14:02 7.5 MLS/HR Norepinephrine Bitartrate 32 mg/ Sodium Chloride 250 ml @ 0.938 mls/ hr Q24H IV 03/19/25 09:15 03/23/25 18:44 0.938 MLS/HR Vasopressin 20 units/Sodium Chloride 100 ml @ 9 mls/hr Q11H7M IV 03/19/25 09:15 Meropenem 50 ml @ 17 mls/hr DAILY IV 03/19/25 10:00 UNV Daptomycin / Sodium Chloride 50 ml @ 100 mls/hr DAILY IV 03/19/25 10:00 UNV Sodium Chloride 10 ml QSHIFT@,22 IV 03/19/25 10:00 03/26/25 10:17 10 ML Linezolid 300 ml @ 150 mls/hr Q12HR IV 03/19/25 22:00 03/26/25 10:16 150 MLS/HR Propofol 100 ml @ 2.721 mls/ hr Q24H IV 03/21/25 11:15 03/26/25 10:16 8.163 MLS/HR Midazolam HCl 100 ml @ 1 mls/hr Q24H IV 03/21/25 11:15 03/21/25 10:42 1 MLS/HR Fentanyl Citrate 250 ml @ 2.5 mls/hr Q24H IV 03/21/25 11:15 03/25/25 16:16 7.5 MLS/HR Atorvastatin Calcium 40 mg HS GT 03/21/25 22:00 03/25/25 21:52 40 MG Metolazone 5 mg DAILY GT 03/22/25 10:00 03/26/25 10:17 5 MG Vancomycin HCl 0 ml @ 0 mls/hr PER PHARMACY IV 03/23/25 22:45 UNV Bumetanide 2.5 mg DAILY IV 03/24/25 10:00 03/26/25 10:17 2.5 MG Dobutamine HCl/ Dextrose 250 ml @ 12.03 mls/ hr [id number] IV 03/24/25 09:45 03/26/25 03:19 12.03 MLS/HR Pantoprazole Sodium 40 mg DAILY IV 03/24/25 10:00 03/26/25 10:17 40 MG Mupirocin 1 applic BID EACHNOSTRI 03/25/25 10:00 03/30/25 09:59 03/26/25 10:17 1 APPLIC Enteral Nutritional Formula 1,000 ml 40ML/HR GT 03/26/25 08:15 Examination: GENERAL:Abnormal, LUNGS:Abnormal, SKIN:Abnormal laboratory and microbiology Laboratory Tests 03/26/25 09:49 03/26/25 02:42 Test 03/26/25 09:49 Range/Units Serum Glucose 227 H 74-106 mg/dL Microbiology Date/Time Source Procedure Growth Status 03/23/25 17:50 Blood Blood Culture - Preliminary NO GROWTH AFTER 48 HOURS OF INCUBATION. Resulted 03/21/25 11:31 Sputum Gram Stain - Final Complete 03/21/25 11:31 Respiratory Culture - Final Methicillin Resistant S.aureus Complete 03/21/25 02:30 Urine - Olsen Port Urine Culture - Final Complete 03/19/25 23:20 Nose MRSA Screen - Final Methicillin Resistant S.aureus Complete Problem List/Assessment/Plan Problem List/Assessment/Plan This is a 59-year-old male with past medical history of heart failure (HFrEF, methamphetamine induced, EF 15%), permanent AFib (on Eliquis), BPH, recurrent right-sided pleural effusion/thoracentesis, hypertension and dyslipidemia came to the hospital due to shortness of breath since 3 days. Nephrology is consulted due to raised creatinine. ROBERTO, on CKD 2, due to septic/cardiogenic shock-----> required acute Hd last 03/22 Acute respiratory failure intubated 03/21 Hyponatremia, likely due to advanced heart failure Septic shock, MRSA bacteremia Acute on chronic systolic heart failure NSTEMI AFib, with a RVR Hypertension Dyslipidemia Cirrhosis methamphetamine abuse Plan/recommendation: s/p leisa cath intubated but awake uop is good but still has no metabolic clearence will schedule dialysis bumex drip to IVP IV ABX on merrem and Zyvox strict I/O guarded prognosis Plan discussed with: Other Dietary Evaluation Review Comments: Nutrition Recommendation: 1) EN Nepro Carbsteady @ 45ml/hr x 24hr (goal) along with Pro-stat 1 pk BID. TF at goal volume along with Pro-stat provide 2144 kcal (100%), 118 gm protein (100%), and 785 ml free water. 2) Consider TPN/PN if NPO>7 days 3) Monitor NPO status, lab values, weight trend, and I/O Expected Outcomes/Goals: Intake to meet >75% estimated needs Lab values to improve FU 2-3 days CC Plasma Assessment Blood Product Administration S: [id number] FEDERICO HANSEN MD Mar 26, 2025 14:27
[2025-03-26] MEDS: SODIUM CHL 0.9% 1000 ML BAG XX ONE (14:30)
[2025-03-26 20:08] LABS: Hematocrit 28.2 % (41.0-53.0); Hemoglobin 8.9 g/dL (13.5-17.5); Mean Corpuscular Hemoglobin 23.5 pg (28.0-32.0); Mean Corpuscular Volume 73.8 fL (80.0-100.0); Nucleated Red Blood Cells % 0.0 %
[2025-03-26 20:17] LABS: Sodium 138 mmol/L (136-145)
[2025-03-26 20:18] LABS: Anion Gap 16 (5-15); Carbon Dioxide 27 mmol/L (20-31)
[2025-03-26 20:23] LABS: BUN/Creatinine Ratio 23.2 (10.0-20.0)
[2025-03-26 20:24] LABS: Magnesium 2.2 mg/dL (1.6-2.6)
[2025-03-26 21:06] LABS: Calcium 7.6 mg/dL (8.7-10.4); Chloride 95 mmol/L (98-107); Glucose 120 mg/dL (74-106); Potassium 3.3 mmol/L (3.5-5.1)
[2025-03-26 21:07] LABS: Blood Urea Nitrogen 85 mg/dL (9-23)
[2025-03-26] MEDS: DESMOPRESSIN INJECTION 20 MCG in SODIUM CHL 0.9% 50 ML IV ONE (22:20)
[2025-03-27] VITALS (109 sets, daily range): BP systolic 88–141; BP diastolic 51–91; PULSE 70–119; RESP 14–24; TEMP 97.1–98.8; O2SAT 89–100
[2025-03-27 03:56] LABS: Hematocrit 28.5 % (41.0-53.0); Hemoglobin 8.9 g/dL (13.5-17.5); Mean Corpuscular Hemoglobin 23.1 pg (28.0-32.0); Mean Corpuscular Volume 74.1 fL (80.0-100.0); Nucleated Red Blood Cells % 0.0 %
[2025-03-27 04:32] LABS: Anion Gap 15 (5-15); BUN/Creatinine Ratio 24.3 (10.0-20.0); Carbon Dioxide 29 mmol/L (20-31); Sodium 137 mmol/L (136-145)
[2025-03-27 04:35] LABS: Alanine Aminotransferase 74 U/L (7-40); Albumin 3.1 g/dL (3.2-4.8); Alkaline Phosphatase 343 U/L (46-116); Bilirubin, Total 4.3 mg/dL (0.2-1.0); Calcium 7.4 mg/dL (8.7-10.4); Chloride 93 mmol/L (98-107); Glucose 110 mg/dL (74-106); Potassium 3.2 mmol/L (3.5-5.1); Total Protein 5.6 g/dL (5.7-8.2)
[2025-03-27 04:36] LABS: Blood Urea Nitrogen 87 mg/dL (9-23)
[2025-03-27] MEDS: POTASSIUM CHL 20MEQ/100ML 100 ML IV ONE ×2 (06:40→06:44)
--- NOTE | 2025-03-27 07:15 | DVH ---
CHEST RADIOGRAPH Indication: pna Technique: Single frontal view of the chest was obtained Comparison: XY CHEST PORTABLE on DOS: 03/26/25. FINDINGS: Lines and Tubes: The endotracheal tube terminates 6.7 cm above the ramses. There is a right central venous catheter with its tip terminating in the superior vena cava. The enteric tube courses below the left hemidiaphragm and the tip extends outside the field of view. Right PICC terminates in the superior cavoatrial junction. Lungs: Bilateral pulmonary opacities are similar to prior study. Pleura: Similar bilateral pleural effusions. No pneumothorax. Cardiomediastinal contours: Cardiomegaly. Bones: No acute osseous abnormality. IMPRESSION: 1. Appropriate position of the support lines and tubes. 2. Pulmonary edema and bilateral pleural effusions similar to prior study.
[2025-03-27 07:26] LABS: Base Excess 2.8 mmol/L (-2.0-3.0)
[2025-03-27] MEDS: PANTOPRAZOLE 40 MG/10 ML VIAL INJ IV SCH (08:09)
[2025-03-27] MEDS: SODIUM CHL 0.9% 1000 ML BAG XX ONE (08:30)
[2025-03-27] MEDS: ALBUMIN 25% 100 ML IV SCH (09:28)
--- NOTE | 2025-03-27 10:33 | MEDREC ---
[facility] ASP Intervention Section I [facility] Intervention: Deescalate AB based on CS (CAUTION USE LINEZOLID, PLT < 100), Duplication of therapy (Duplicate with Cefepime and Meropenem. Please consider d/c one.) SANDOR ALARCON [facility] RESIDENT Mar 27, 2025 10:33
--- NOTE | 2025-03-27 10:35 | DVHPN2 ---
Consult Progress Note Subjective Other Systems: Patient remains in atrial fibrillation/flutter with controlled on cardiac cath tech at time of assessment. Patient is receiving hemodialysis at time of assessment. Objective vital signs Vital Sign Date Time Temp Pulse Resp B/P (MAP) Pulse Ox O2 Delivery O2 Flow Rate FiO2 03/27/25 09:51 20 99 Mechanical Ventilator+ 30 30 03/27/25 09:51 79 03/27/25 09:45 119/73 (88) 03/27/25 08:00 97.1 97.1 Total Intake and Output 03/26/25 03/26/25 03/27/25 15:00 23:00 07:00 Intake Total 521.544 ml 585.922 ml 579.269 ml Output Total 650 ml 1050 ml Balance 521.544 ml -64.078 ml -470.731 ml medications Current Medications Medications Dose Ordered Sig/Zainab Route Start Time Stop Time Status Last Admin Dose Admin Ondansetron HCl 4 mg Q4HP PRN IV 03/18/25 19:15 Acetaminophen 650 mg Q6HP PRN PO 03/18/25 19:15 Nitroglycerin 0.4 mg Q5MINP PRN SL 03/18/25 19:15 Phenylephrine HCl 80 mg/Sodium Chloride 250 ml @ 7.5 mls/hr Q24H IV 03/19/25 09:15 03/25/25 14:02 7.5 MLS/HR Norepinephrine Bitartrate 32 mg/ Sodium Chloride 250 ml @ 0.938 mls/ hr Q24H IV 03/19/25 09:15 03/23/25 18:44 0.938 MLS/HR Vasopressin 20 units/Sodium Chloride 100 ml @ 9 mls/hr Q11H7M IV 03/19/25 09:15 Meropenem 50 ml @ 17 mls/hr DAILY IV 03/19/25 10:00 UNV Daptomycin / Sodium Chloride 50 ml @ 100 mls/hr DAILY IV 03/19/25 10:00 UNV Sodium Chloride 10 ml QSHIFT@10,22 IV 03/19/25 10:00 03/27/25 08:07 10 ML Linezolid 300 ml @ 150 mls/hr Q12HR IV 03/19/25 22:00 03/26/25 22:19 150 MLS/HR Propofol 100 ml @ 2.721 mls/ hr Q24H IV 03/21/25 11:15 03/26/25 21:41 8.163 MLS/HR Midazolam HCl 100 ml @ 1 mls/hr Q24H IV 03/21/25 11:15 03/21/25 10:42 1 MLS/HR Fentanyl Citrate 250 ml @ 2.5 mls/hr Q24H IV 03/21/25 11:15 03/27/25 02:12 7.5 MLS/HR Atorvastatin Calcium 40 mg HS GT 03/21/25 22:00 03/26/25 22:19 40 MG Vancomycin HCl 0 ml @ 0 mls/hr PER PHARMACY IV 03/23/25 22:45 UNV Bumetanide 2.5 mg DAILY IV 03/24/25 10:00 03/27/25 08:07 2.5 MG Dobutamine HCl/ Dextrose 250 ml @ 12.03 mls/ hr [id number] IV 03/24/25 09:45 03/27/25 02:11 12.03 MLS/HR Mupirocin 1 applic BID EACHNOSTRI 03/25/25 10:00 03/30/25 09:59 03/27/25 08:08 1 APPLIC Enteral Nutritional Formula 1,000 ml 40ML/HR GT 03/26/25 08:15 Pantoprazole Sodium 40 mg BID IV 03/27/25 10:00 03/27/25 08:09 40 MG Sucralfate 1 gm TID@0600,1130,2200 GT 03/27/25 11:30 Albumin Human 100 ml @ 100 mls/hr Q1HR IV 03/27/25 09:00 03/27/25 10:59 03/27/25 09:28 100 MLS/HR Examination: GENERAL:Abnormal, LUNGS:Abnormal (Mechanically ventilated), CVS:Abnormal (Atrial fibrillation/flutter with controlled rate on cardiac cath tech), NEURO:Abnormal (Chemically sedated) laboratory and microbiology Laboratory Tests 03/27/25 03:27 Test 03/27/25 03:27 Range/Units Serum Glucose 110 H 74-106 mg/dL Problem List/Assessment/Plan Problem List/Assessment/Plan Acute on Chronic HFrEF, EF 15% (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 [place]) Plan: Transthoracic echocardiogram revealed LVEF 20% with severe global hypokinesis, biatrial and biventricular enlargement, aortic root enlargement, mild thickening of the mitral leaflets, mild mitral annular calcification, mild aortic sclerosis, diminished RV function, doming of the interventricular septum in systole and diastole consistent with a pressure in the volume overload/pulmonary hypertension. Initially scheduled for a transesophageal echocardiogram on 03/25/2025 to rule out subacute infective endocarditis. Given oral bleed, we will await for resolution and re-schedule GELY accordingly. 03/27/25: Patient still experiencing copious oral bleeding now with bleeding noted to right IJ site during hemodialysis. In the meantime, discontinue Lovenox or any other AC/antiplatelet therapy given oral bleeding, thrombocytopenia, and downtrending hemoglobin. [id number] VASc score: 2 points, HAS-BLED score: 4 points. Continue SCDs in the meantime. Continue PPI. Hold antiarrhythmic therapy, as patient is allergic to amiodarone . Continue preload and afterload reduction with Dobutamine drip. Continue vasopressor for hemodynamic support. Initiate GDMT for CHF as renal function and hemodynamics permit. Continue Nephrology recommendations. DVT/VTE prophylaxis: SCDs. Consider GI consultation given oral bleed and positive stool occult findings. Further orders per clinical course. Thank you for allowing us to care for this patient. Critical care time: 30 min. This medical document was created using an electronic medical record system with voice recognition software and computerized dictation system. Although this document has been carefully reviewed, there might still be some phonetic and typographical errors. Occasional wrong-word or ``sound-alike substitutions may have occurred due to the inherent limitations of voice recognition software. These areas are purely typographical due to imperfections of the software programs and do not reflect any compromise in the patient's medical care. Please read the chart carefully and recognize, using context, where these substitutions have occurred. Plan discussed with: Other (Bedside DAVID Durant) Dietary Evaluation Review Comments: Nutrition Recommendation: 1) EN Nepro Carbsteady @ 45ml/hr x 24hr (goal) along with Pro-stat 1 pk BID. TF at goal volume along with Pro-stat provide 2144 kcal (100%), 118 gm protein (100%), and 785 ml free water. 2) Consider TPN/PN if NPO>7 days 3) Monitor NPO status, lab values, weight trend, and I/O Expected Outcomes/Goals: Intake to meet >75% estimated needs Lab values to improve FU 2-3 days CC Plasma Assessment Blood Product Administration S: [id number] Date of Service: Mar 27, 2025 Billing Provider: SANDEEP VALDEZ Common Visit Codes: [id number] CARE 30-74 MIN SANDEEP VALDEZ Mar 27, 2025 10:35
[2025-03-27] MEDS: SUCRALFATE 1 GM/10 ML ORAL SUSP GT SCH (11:30)
--- NOTE | 2025-03-27 11:50 | DVHPN2 ---
Subjective Intubated and sedated Reviewed: Care Plan, H&P, Labs, Medications, Previous Orders Changes from previous H/P or p: No Changes General: Per HPI Objective Vitals Vital Signs Date Time Temp Pulse Resp B/P (MAP) Pulse Ox O2 Delivery O2 Flow Rate FiO2 03/27/25 10:30 80 14 126/75 (92) 98 03/27/25 09:51 Mechanical Ventilator+ 30 30 03/27/25 08:00 97.1 97.1 Intake/Output Intake and Output 03/27/25 07:00 Intake Total 1686.735 ml Output Total 1700 ml Balance -13.265 ml Intake Oral 60 ml IV Total 1306.735 ml Tube Feeding 320 ml Output Urine Total 1700 ml # Bowel Movements 3 General Appearance: mild distress, Other (Intubated, on vent) HEENT: Atraumatic, PERRLA, Other (bleeding from oral mucosa) Lungs: Clear to auscultation, Normal air movement Cardiovascular: Normal S1, Normal S2 Abdomen: Normal bowel sounds, Soft, No tenderness, No hepatospenomegaly, No masses Genitourinary: No Apparent Abnormalities (Olsen catheter) Musculoskeletal: Other (Unable to assess) Neuro: Other (Unable to assess) Skin: Dry, Intact Psych/Mental Status: Other (Intubated, on vent, unable to exam) Medications Current Medications Medications Dose Ordered Sig/Zainab Route Start Time Stop Time Status Last Admin Dose Admin Ondansetron HCl 4 mg Q4HP PRN IV 03/18/25 19:15 Acetaminophen 650 mg Q6HP PRN PO 03/18/25 19:15 Nitroglycerin 0.4 mg Q5MINP PRN SL 03/18/25 19:15 Phenylephrine HCl 80 mg/Sodium Chloride 250 ml @ 7.5 mls/hr Q24H IV 03/19/25 09:15 03/25/25 14:02 7.5 MLS/HR Norepinephrine Bitartrate 32 mg/ Sodium Chloride 250 ml @ 0.938 mls/ hr Q24H IV 03/19/25 09:15 03/23/25 18:44 0.938 MLS/HR Vasopressin 20 units/Sodium Chloride 100 ml @ 9 mls/hr Q11H7M IV 03/19/25 09:15 Meropenem 50 ml @ 17 mls/hr DAILY IV 03/19/25 10:00 UNV Daptomycin / Sodium Chloride 50 ml @ 100 mls/hr DAILY IV 03/19/25 10:00 UNV Sodium Chloride 10 ml QSHIFT@10,22 IV 03/19/25 10:00 03/27/25 08:07 10 ML Linezolid 300 ml @ 150 mls/hr Q12HR IV 03/19/25 22:00 03/27/25 10:00 150 MLS/HR Propofol 100 ml @ 2.721 mls/ hr Q24H IV 03/21/25 11:15 03/26/25 21:41 8.163 MLS/HR Midazolam HCl 100 ml @ 1 mls/hr Q24H IV 03/21/25 11:15 03/21/25 10:42 1 MLS/HR Fentanyl Citrate 250 ml @ 2.5 mls/hr Q24H IV 03/21/25 11:15 03/27/25 02:12 7.5 MLS/HR Atorvastatin Calcium 40 mg HS GT 03/21/25 22:00 03/26/25 22:19 40 MG Vancomycin HCl 0 ml @ 0 mls/hr PER PHARMACY IV 03/23/25 22:45 UNV Bumetanide 2.5 mg DAILY IV 03/24/25 10:00 03/27/25 08:07 2.5 MG Dobutamine HCl/ Dextrose 250 ml @ 12.03 mls/ hr [id number] IV 03/24/25 09:45 03/27/25 02:11 12.03 MLS/HR Mupirocin 1 applic BID EACHNOSTRI 03/25/25 10:00 03/30/25 09:59 03/27/25 08:08 1 APPLIC Enteral Nutritional Formula 1,000 ml 40ML/HR GT 03/26/25 08:15 Pantoprazole Sodium 40 mg BID IV 03/27/25 10:00 03/27/25 08:09 40 MG Sucralfate 1 gm TID@0600,1130,2200 GT 03/27/25 11:30 Laboratory Results Laboratory Tests 03/27/25 03:27 Chemistry Test 03/26/25 19:52 03/27/25 03:27 Calcium Level 7.6 mg/dL (8.7-10.4) L 7.4 mg/dL (8.7-10.4) L Magnesium Level 2.2 mg/dL (1.6-2.6) Albumin 3.1 g/dL (3.2-4.8) L Total Protein 5.6 g/dL (5.7-8.2) L LFT Test 03/27/25 03:27 Alanine Aminotransferase (ALT) 74 U/L (7-40) H Alkaline Phosphatase 343 U/L (46-116) H Aspartate Amino Transferase (AST) 135 U/L (13-40) H Total Bilirubin 4.3 mg/dL (0.2-1.0) H Urinalysis Test 03/21/25 00:00 03/21/25 03:10 Urine Color Dark-yellow (Yellow) Urine Clarity Turbid (Clear) H Urine pH 6.0 (5.0-9.0) Urine Specific [place] 1.014 (1.001-1.035) Urine Protein 2+ (Negative) H Urine Ketones Negative (Negative) Urine Blood 3+ /uL (Negative) H Urine Nitrite Negative (Negative) Urine Bilirubin 1+ (Negative) Urine Urobilinogen Normal mg/dL (Negative) Urine Leukocyte Esterase 2+ /uL (Negative) Urine RBC 896 /hpf (0 - 3) Urine Microscopic WBC 37 /HPF (0-3) H Urine Squamous Epithelial Cells Few /hpf (<5) Urine Bacteria None seen /hpf (None Seen) Urine Sperm Present /hpf (None Seen) Urine Glucose 1+ mg/dL (Normal) H Urine Creatinine 35.89 mg/dL (30.0-125.0) Urine Protein/Creatinine Ratio 30.21 Urine Sodium 95 mmol/L (40-220) Urine Total Protein 1084.4 mg/dL (1-14) H Blood Gas Results Test 03/27/25 06:26 Arterial Blood pH 7.428 (7.350-7.450) FiO2 % 30.0 Microbiology Microbiology Date/Time Source Procedure Growth Status 03/23/25 17:50 Blood Blood Culture - Preliminary NO GROWTH AFTER 72 HOURS OF INCUBATION. Resulted 03/21/25 11:31 Sputum Gram Stain - Final Complete 03/21/25 11:31 Respiratory Culture - Final Methicillin Resistant S.aureus Complete 03/21/25 02:30 Urine - Olsen Port Urine Culture - Final Complete 03/19/25 23:20 Nose MRSA Screen - Final Methicillin Resistant S.aureus Complete Labs and/or images reviewed: Labs reviewed by me, Image(s) reviewed by me Assessment/Plan Assessment/Plan Impression: -septic shock -acute hypoxic respiratory failure -acute on chronic systolic and diastolic heart failure -right pleural effusion -acute kidney injury -chronic kidney disease stage IIIB/four -PE ruled out -history of polysubstance abuse -thrombocytopenia -metabolic encephalopathy Plan: Events: Patient is still has oozing from HD catheter site. H&H stable. Receiving hemodialysis again today. Continues to be off vasopressors. Chest x- ray with persistent pulmonary vascular congestion and opacities -nephrology consultation: HD per their discretion. Patient continues to be on Bumex IV push -continue vasopressor therapy -continue Zyvox -bronchodilators -PPI -continue current vent settings. -nephrology and cardiology consultation -repeat labs, chest x ray, abg,in a.m. Critical care time spent with patient discussing and formulating plan of care: 40 minutes. This does not include time spent performing procedures. This medical document was created using an electronic medical record system with [employer] dictation system. Although this document has been carefully reviewed, there may still be some phonetic and typographical errors. These areas are purely typographical due to imperfections of the software programs, and do not reflect any compromise in the patient's medical care. Plan discussed with: Patient, Other (RN) My Orders Orders - ANGELA VAUGHAN NP Procedure Category Date Status Time Abg W/ Co-Ox RT 03/27/25 Logged 07:00 Pantoprazole PHA 03/27/25 In Process (Protonix) 10:00 Sucralfate Susp PHA 03/27/25 In Process (Carafate Susp) 11:30 * Gi Dvh C Python Developer CONS 03/27/25 Transmitted 07:56 Date of Service: Mar 27, 2025 Billing Provider: ANGELA VAUGHAN NP Common Visit Codes: [id number] CARE 30-74 MIN ANGELA VAUGHAN NP Mar 27, 2025 11:50
[2025-03-27] MEDS: TRANEXAMIC ACID 1,000 MG in SODIUM CHL 0.9% 100 ML IV ONE (12:30)
[2025-03-27] MEDS: OCTREOTIDE ACETATE 100 MCG in SODIUM CHL 0.9% 50 ML IV ONE (14:30)
[2025-03-27] MEDS: phytonadione 10 MG in SODIUM CHL 0.9% 50 ML IV ONE (14:30)
--- NOTE | 2025-03-27 14:31 | DVHCONRES ---
Date Seen: Mar 27, 2025 Resident Creating Document: DONNIE PEDRO RESIDENT History of Present Illness 59-year-old male who is hospital stay has been complicated with AFib with RVR, sepsis secondary to pneumonia, MRSA bacteremia, ROBERTO requiring hemodialysis, HFrEF-EF 15%, liver cirrhosis and positive stool occult. GI consultation for positive stool occult blood. Recommend FFP X 2 units, vitamin K today and tomorrow, Protonix drip, octreotide for 48 hours. Family History: Cirrhosis of liver G8 MOTHER FH: CHF (congestive heart failure) G8 FATHER FH: myocardial infarction G8 FATHER FH: natural G8 MOTHER 19 CHILD Allergies: Coded Allergies: Amiodarone (Verified Allergy, Unknown, 08/16/23) Metoprolol (Verified Allergy, Unknown, rapid decrease in blood pressure, 02/13/24) Penicillins (Verified Allergy, Unknown, 06/09/23) Home Meds Active Scripts Bumetanide (Bumex Tablet) 1 Mg Tab, 1 MG PO BID for 30 Days, #60 TAB BLK BX WARNING-CAN LEAD TO PROFOUND DIURESIS WITH FLUID- ELECTROLYTE LOSS Prov:JOHN SHAH MD 01/13/25 Atorvastatin Calcium (ATORVASTATIN CALCIUM) 40 Mg Tab, 40 MG PO DAILY for 30 Days, #30 TAB 3 Refills Prov:JOHN SHAH MD 01/13/25 Apixaban Base (ELIQUIS) 5 Mg Tab, 5 MG PO BID for 30 Days, #60 TAB 3 Refills Prov:JOHN SHAH MD 01/13/25 Potassium Chloride (Potassium Chloride ER) 10 Meq Tab, 10 MEQ PO DAILY for 30 Days, #30 TAB 3 Refills Prov:JOHN SHAH MD 01/13/25 Carvedilol (Carvedilol) 3.125 Mg Tab, 3.125 MG PO BID for 30 Days, #60 TAB 3 Refills Prov:JOHN SHAH MD 01/13/25 Tamsulosin Hcl (Tamsulosin Hcl) 0.4 Mg Cap, 1 CAP PO DAILY for 30 Days, #30 CAP Prov:JOHN SHAH MD 01/13/25 Digoxin (Digoxin) 125 Mcg Tab, 125 MCG PO DAILY for 30 Days, #30 TAB Prov:JOHN SHAH MD 01/13/25 Sacubitril-Valsartan (Entresto 24-26 mg) 1 Tab Tab, 1 TAB PO BID for 30 Days, #60 TAB 6 Refills Prov:JOHN SHAH MD 01/13/25 Current Medications Current Medications Medications (Trade) Dose Ordered Sig/Zainab Route PRN Reason Start Time Stop Time Status Last Admin Pantoprazole Sodium (Protonix) 40 mg BID IV 03/27/25 10:00 03/27/25 08:09 Sucralfate (Carafate Susp) 1 gm TID@0600,1130,2200 GT 03/27/25 11:30 03/27/25 11:30 Albumin Human 100 ml @ 100 mls/hr Q1HR IV 03/27/25 09:00 03/27/25 10:59 DC 03/27/25 09:28 Review of Systems Could not be obtained as patient is intubated Vital Signs Vital Signs Date Time Temp Pulse Resp B/P (MAP) Pulse Ox O2 Delivery O2 Flow Rate FiO2 03/27/25 14:15 73 19 115/69 (84) 96 03/27/25 13:42 30 03/27/25 13:35 Mechanical Ventilator+ 03/27/25 12:00 97.3 97.3 Physical Exam Male patient frail-appearing, intubated and mechanically ventilated, RASS -1, responding to verbal and touch commands General: Well-built, afebrile, palor, mucosae are moist. Bleeding through right IJ catheter, mucosal membrane. Cardiovascular: Tachycardic and irregular S1 and S2. No murmurs, gallops or rubs. No JVD elevation. Pedal edema bilaterally Respiratory: Decreased breath sounds heard on auscultation, mechanically ventilated Abdomen: Soft, nontender, nondistended, normoactive bowel sounds, no rebound tenderness, no organomegaly, no masses Genitourinary: Deferred Labs/Diagnostic Data Labs Test 03/27/25 06:26 03/27/25 03:27 03/26/25 19:52 03/26/25 02:42 Range/Units Blood Gas Specimen Type Arterial Blood Gas Sample Site Left radial Blood Gas Patient Temperature 37.0 Arterial Blood Date Drawn [id number] Arterial Blood pH 7.428 7.350-7.450 Arterial Blood Partial Pressure CO2 42.5 35.0-48.0 mmHg Arterial Blood Partial Pressure O2 65.2 L 83.0-108.0 mmHg Arterial Blood HCO3 27.4 21.0-28.0 mmol/L Arterial Blood Oxygen Saturation 90.6 L 94.0-98.0 % Arterial Blood Base Excess 2.8 -2.0-3.0 mmol/L Arterial Blood Oxyhemoglobin 89.5 L 94.0-98.0 % Arterial Blood Carboxyhemoglobin 0.7 0.5-1.5 % Arterial Blood Methemoglobin 0.5 0.0-1.5 % Brian Test Modified Blood Gas Total Hemoglobin 10.00 L 13.5-17.5 g/dL Blood Gas Set Respiration Rate 20.0 Blood Gas Modality Vent - ac FiO2 % 30.0 Blood Gas Tidal Volume 450.0 Blood Gas PEEP or CPAP 5.0 White Blood Count 16.7 H 4.4-10.8 10^3/uL Red Blood Count 3.85 L 4.5-5.90 10^6/uL Hemoglobin 8.9 L 13.5-17.5 g/dL Hematocrit 28.5 L 41.0-53.0 % Mean Corpuscular Volume 74.1 L 80.0-100.0 fL Mean Corpuscular Hemoglobin 23.1 L 28.0-32.0 pg Mean Corpuscular Hemoglobin Concent 31.2 L 32.0-36.0 g/dL Red Cell Distribution Width 21.3 H 11.8-14.3 % Platelet Count 94 L 140-450 10^3/uL Mean Platelet Volume 8.5 6.9-10.8 fL Neutrophils (%) (Auto) 89.6 H 37.0-80.0 % Lymphocytes (%) (Auto) 3.3 L 10.0-50.0 % Monocytes (%) (Auto) 6.7 0.0-12.0 % Eosinophils (%) (Auto) 0.3 0.0-7.0 % Basophils (%) (Auto) 0.1 0.0-2.0 % Neutrophils # (Auto) 15.0 H 1.6-8.6 10 ^3/uL Lymphocytes # (Auto) 0.5 0.4-5.4 10 ^3/uL Monocytes # (Auto) 1.1 0-1.3 10 ^3/uL Eosinophils # (Auto) 0.1 0-0.8 10 ^3/uL Basophils # (Auto) 0 0-0.2 10 ^3/uL Nucleated Red Blood Cells 0.0 % Sodium Level 137 136-145 mmol/L Potassium Level 3.2 L 3.5-5.1 mmol/L Chloride Level 93 L 98-107 mmol/L Carbon Dioxide Level 29 20-31 mmol/L Anion Gap 15 5-15 Blood Urea Nitrogen 87 *H 9-23 mg/dL Creatinine 3.58 H 0.700-1.30 mg/dL Glomerular Filtration Rate Calc 19 >90 mL/min BUN/Creatinine Ratio 24.3 H 10.0-20.0 Serum Glucose 110 H 74-106 mg/dL Calcium Level 7.4 L 8.7-10.4 mg/dL Total Bilirubin 4.3 H 0.2-1.0 mg/dL Aspartate Amino Transferase (AST) 135 H 13-40 U/L Alanine Aminotransferase (ALT) 74 H 7-40 U/L Alkaline Phosphatase 343 H 46-116 U/L Total Protein 5.6 L 5.7-8.2 g/dL Albumin 3.1 L 3.2-4.8 g/dL Magnesium Level 2.2 1.6-2.6 mg/dL Prothrombin Time 12.4 H 9.3-11.8 sec Prothrombin Time INR 1.19 H 0.9-1.15 Activated Partial Thromboplast Time 28.5 24.5-34.5 SEC Test 03/26/25 01:45 03/23/25 14:24 03/21/25 06:16 03/21/25 03:10 Range/Units Stool Occult Blood Positive Negative Stool Occult Blood Sample #3 Negative Phosphorus Level 5.8 H 2.4-5.1 mg/dL POC Glucose 177 H 70-106 mg/dl Urine Creatinine 35.89 30.0-125.0 mg/dL Urine Protein/Creatinine Ratio 30.21 Urine Sodium 95 40-220 mmol/L Urine Total Protein 1084.4 H 1-14 mg/dL Hepatitis B Surface Antigen Negative Negative Test 03/21/25 00:00 03/20/25 22:55 03/20/25 11:42 03/20/25 03:58 Range/Units Urine Color Dark-yellow Yellow Urine Clarity Turbid H Clear Urine pH 6.0 5.0-9.0 Urine Specific [place] 1.014 1.001-1.035 Urine Protein 2+ H Negative Urine Ketones Negative Negative Urine Blood 3+ H Negative /uL Urine Nitrite Negative Negative Urine Bilirubin 1+ Negative Urine Urobilinogen Normal Negative mg/dL Urine Leukocyte Esterase 2+ Negative /uL Urine RBC 896 0 - 3 /hpf Urine Microscopic WBC 37 H 0-3 /HPF Urine Squamous Epithelial Cells Few <5 /hpf Urine Bacteria None seen None Seen /hpf Urine Sperm Present None Seen /hpf Urine Glucose 1+ H Normal mg/dL Urine Opiates Screen Neg NEGATIVE Urine Fentanyl Screen Neg NEGATIVE Urine Barbiturates Screen Neg NEGATIVE Urine Phencyclidine Screen Neg NEGATIVE Urine Amphetamines Screen Pos NEGATIVE Urine Benzodiazepines Screen Neg NEGATIVE Urine Cocaine Screen Neg NEGATIVE Urine Cannabinoids Screen Neg NEGATIVE Blood Gas Liter Flow 10.00 Ammonia 24 11-32 umol/L Differential Total Cells Counted 100.0 100 Neutrophils % (Manual) 91 H 37.0-80.0 Band Neutrophils % (Manual) 0 Lymphocytes % (Manual) 5 L 10.0-50.0 Monocytes % (Manual) 4 0-12 Eosinophils % (Manual) 0 0-7 Basophils % (Manual) 0 0.0-2.0 Metamyelocytes % (manual) 0 Myelocytes % (Manual) 0 Promyelocytes % (Manual) 0 Blast Cells % (Manual) 0 Reactive Lymphocytes 0 Platelet Estimate Adequate Hypochromasia (manual) Moderate Anisocytosis (manual) Slight Microcytosis Slight Test 03/19/25 19:49 03/19/25 14:30 03/18/25 17:17 03/18/25 15:30 Range/Units Parathyroid Hormone (Intact) 85.0 H 18.4-80.1 pg/mL Influenza Type A Antigen Negative Negative Influenza Type B Antigen Negative Negative SARS-CoV-2 Antigen (Rapid) Negative NEGATIVE Lactic Acid Level 4.1 *H 0.4-2.0 mmol/L Free Thyroxine Index 1.4 1.2-4.9 Thyroxine (T4) 4.0 L 4.5-12.0 ug/dL Triiodothyronine (T3) Uptake 36 24-39 % Test 03/18/25 13:45 Range/Units D-Dimer, Quantitative 24.58 H 0.0-0.49 mg/L FEU Troponin I High Sensitivity 213 *H </=54 ng/L B-Type Natriuretic Peptide 3471.13 0-100 pg/mL Thyroid Stimulating Hormone (TSH) 4.95 H 0.55-4.78 uIU/mL Digoxin Level 0.35 L 0.8-2 ng/mL Microbiology Date/Time Source Procedure Growth Status 03/23/25 17:50 Blood Blood Culture - Preliminary NO GROWTH AFTER 72 HOURS OF INCUBATION. Resulted 03/21/25 11:31 Sputum Gram Stain - Final Complete 03/21/25 11:31 Respiratory Culture - Final Methicillin Resistant S.aureus Complete 03/21/25 02:30 Urine - Olsen Port Urine Culture - Final Complete 03/19/25 23:20 Nose MRSA Screen - Final Methicillin Resistant S.aureus Complete Assessment Alcoholic cirrhosis -meld score 27 Rule out GI bleed Anemia likely iron-deficiency versus chronic kidney disease Septic shock with MRSA bacteremia Acute hypoxic respiratory failure status post intubation Ascites Acute on chronic HFrEF exacerbation-EF 15-20% Acute kidney injury needing hemodialysis Atrial fibrillation with RVR Hypertension Plan: Recommendation: Given the alcoholic cirrhosis and positive stool occult, patient will be started on octreotide drip for the next 48 hours. Also started on Protonix drip. FFPx2 for mucosal bleeding. Vitamin K 10 mg X 1. Currently on dobutamine and neosyn Continue enteric feeding as tolerated Follow up with fibrinogen and FDPs Rest of management per primary team Thank you for consulting GI Plan discussed with the patient in which all questions been answered Case discussed with primary nurse, Dr. Painting Plan discussed with: Patient DONNIE PEDRO RESIDENT Mar 27, 2025 14:31
--- NOTE | 2025-03-27 14:31 | DVHPN2 ---
Progress Note - Dictate Date Seen: Mar 27, 2025 Medical Necessity Reason Pt with a Central, PICC or Fol: Yes The following are medically ne: Central Line (HD catheter), Olsen Catheter vital signs Vital Sign Date Time Temp Pulse Resp B/P (MAP) Pulse Ox O2 Delivery O2 Flow Rate FiO2 03/27/25 14:15 73 19 115/69 (84) 96 03/27/25 13:42 30 03/27/25 13:35 Mechanical Ventilator+ 03/27/25 12:00 97.3 97.3 Total Intake and Output 03/26/25 03/26/25 03/27/25 14:59 22:59 06:59 Intake Total 524.357 ml 433.109 ml 724.048 ml Output Total 650 ml 1050 ml Balance 524.357 ml -216.891 ml -325.952 ml medications Current Medications Medications Dose Ordered Sig/Zainab Route Start Time Stop Time Status Last Admin Dose Admin Ondansetron HCl 4 mg Q4HP PRN IV 03/18/25 19:15 Acetaminophen 650 mg Q6HP PRN PO 03/18/25 19:15 Nitroglycerin 0.4 mg Q5MINP PRN SL 03/18/25 19:15 Phenylephrine HCl 80 mg/Sodium Chloride 250 ml @ 7.5 mls/hr Q24H IV 03/19/25 09:15 03/25/25 14:02 7.5 MLS/HR Norepinephrine Bitartrate 32 mg/ Sodium Chloride 250 ml @ 0.938 mls/ hr Q24H IV 03/19/25 09:15 03/23/25 18:44 0.938 MLS/HR Vasopressin 20 units/Sodium Chloride 100 ml @ 9 mls/hr Q11H7M IV 03/19/25 09:15 Meropenem 50 ml @ 17 mls/hr DAILY IV 03/19/25 10:00 UNV Daptomycin / Sodium Chloride 50 ml @ 100 mls/hr DAILY IV 03/19/25 10:00 UNV Sodium Chloride 10 ml QSHIFT@,22 IV 03/19/25 10:00 03/27/25 08:07 10 ML Linezolid 300 ml @ 150 mls/hr Q12HR IV 03/19/25 22:00 03/27/25 10:00 150 MLS/HR Propofol 100 ml @ 2.721 mls/ hr Q24H IV 03/21/25 11:15 03/27/25 11:00 10.884 MLS/HR Midazolam HCl 100 ml @ 1 mls/hr Q24H IV 03/21/25 11:15 03/21/25 10:42 1 MLS/HR Fentanyl Citrate 250 ml @ 2.5 mls/hr Q24H IV 03/21/25 11:15 03/27/25 02:12 7.5 MLS/HR Atorvastatin Calcium 40 mg HS GT 03/21/25 22:00 03/26/25 22:19 40 MG Vancomycin HCl 0 ml @ 0 mls/hr PER PHARMACY IV 03/23/25 22:45 UNV Bumetanide 2.5 mg DAILY IV 03/24/25 10:00 03/27/25 08:07 2.5 MG Dobutamine HCl/ Dextrose 250 ml @ 12.03 mls/ hr [id number] IV 03/24/25 09:45 03/27/25 02:11 12.03 MLS/HR Mupirocin 1 applic BID EACHNOSTRI 03/25/25 10:00 03/30/25 09:59 03/27/25 08:08 1 APPLIC Enteral Nutritional Formula 1,000 ml 40ML/HR GT 03/26/25 08:15 Pantoprazole Sodium 40 mg BID IV 03/27/25 10:00 03/27/25 08:09 40 MG Sucralfate 1 gm TID@0600,1130,2200 GT 03/27/25 11:30 03/27/25 11:30 1 GM laboratory and microbiology Laboratory Tests 03/27/25 03:27 Test 03/27/25 03:27 Range/Units Serum Glucose 110 H 74-106 mg/dL Assessment/Plan Impression Acute hypoxemic respiratory failure Hx of substance abuse Bacteremia ROBERTO Patient seen and examined in ICU Events On mechanical ventilation S/p intubation PEEP 5, FiO2 30% minimal secretions Persistently bacteremic coagulopathy related to sepsis and liver disease oozing noted from injection and line sites Labs and imaging reviewed ABG reviewed GELY deferred until more stable Management Vent support Titrate to maintain sats 90% or above Sedation for vent synchrony Continue antibiotics F/u cultures and ID Bronchodilators Monitor renal function Monitor electrolytes Supplement as needed Pressors as needed for hemodynamic support To maintain a mean arterial pressure of 65 mmHg GELY pending to rule out endocarditis F/u cardiology Vitamin K Bronchoscopy deferred in view of minimal secretions DVT prophylaxis Critical care time 35 minutes Dietary Evaluation Review Comments: Nutrition Recommendation: 1) EN Nepro Carbsteady @ 45ml/hr x 24hr (goal) along with Pro-stat 1 pk BID. TF at goal volume along with Pro-stat provide 2144 kcal (100%), 118 gm protein (100%), and 785 ml free water. 2) Consider TPN/PN if NPO>7 days 3) Monitor NPO status, lab values, weight trend, and I/O Expected Outcomes/Goals: Intake to meet >75% estimated needs Lab values to improve FU 2-3 days Plan discussed with: Other (rn) CC Plasma Assessment Blood Product Administration S: [id number] JESSICA RAYMUNDO MD Mar 27, 2025 14:31
--- NOTE | 2025-03-27 15:45 | DVHPN2 ---
Progress Note - Dictate Date Seen: Mar 27, 2025 Medical Necessity Reason Pt with a Central, PICC or Fol: Yes The following are medically ne: Central Line (HD catheter), Olsen Catheter Subjective Tolerated approximately 1 L of UF with dialysis today vital signs Vital Sign Date Time Temp Pulse Resp B/P (MAP) Pulse Ox O2 Delivery O2 Flow Rate FiO2 03/27/25 14:15 73 19 115/69 (84) 96 03/27/25 13:42 30 03/27/25 13:35 Mechanical Ventilator+ 03/27/25 12:00 97.3 97.3 Total Intake and Output 03/26/25 03/26/25 03/27/25 15:00 23:00 07:00 Intake Total 521.544 ml 585.922 ml 579.269 ml Output Total 650 ml 1050 ml Balance 521.544 ml -64.078 ml -470.731 ml medications Current Medications Medications Dose Ordered Sig/Zainab Route Start Time Stop Time Status Last Admin Dose Admin Ondansetron HCl 4 mg Q4HP PRN IV 03/18/25 19:15 Acetaminophen 650 mg Q6HP PRN PO 03/18/25 19:15 Nitroglycerin 0.4 mg Q5MINP PRN SL 03/18/25 19:15 Phenylephrine HCl 80 mg/Sodium Chloride 250 ml @ 7.5 mls/hr Q24H IV 03/19/25 09:15 03/25/25 14:02 7.5 MLS/HR Norepinephrine Bitartrate 32 mg/ Sodium Chloride 250 ml @ 0.938 mls/ hr Q24H IV 03/19/25 09:15 03/23/25 18:44 0.938 MLS/HR Vasopressin 20 units/Sodium Chloride 100 ml @ 9 mls/hr Q11H7M IV 03/19/25 09:15 Meropenem 50 ml @ 17 mls/hr DAILY IV 03/19/25 10:00 UNV Daptomycin / Sodium Chloride 50 ml @ 100 mls/hr DAILY IV 03/19/25 10:00 UNV Sodium Chloride 10 ml QSHIFT@10,22 IV 03/19/25 10:00 03/27/25 08:07 10 ML Linezolid 300 ml @ 150 mls/hr Q12HR IV 03/19/25 22:00 03/27/25 10:00 150 MLS/HR Propofol 100 ml @ 2.721 mls/ hr Q24H IV 03/21/25 11:15 03/27/25 11:00 10.884 MLS/HR Midazolam HCl 100 ml @ 1 mls/hr Q24H IV 03/21/25 11:15 03/21/25 10:42 1 MLS/HR Fentanyl Citrate 250 ml @ 2.5 mls/hr Q24H IV 03/21/25 11:15 03/27/25 02:12 7.5 MLS/HR Atorvastatin Calcium 40 mg HS GT 03/21/25 22:00 03/26/25 22:19 40 MG Vancomycin HCl 0 ml @ 0 mls/hr PER PHARMACY IV 03/23/25 22:45 UNV Bumetanide 2.5 mg DAILY IV 03/24/25 10:00 03/27/25 08:07 2.5 MG Dobutamine HCl/ Dextrose 250 ml @ 12.03 mls/ hr [id number] IV 03/24/25 09:45 03/27/25 02:11 12.03 MLS/HR Mupirocin 1 applic BID EACHNOSTRI 03/25/25 10:00 03/30/25 09:59 03/27/25 08:08 1 APPLIC Enteral Nutritional Formula 1,000 ml 40ML/HR GT 03/26/25 08:15 Sucralfate 1 gm TID@0600,1130,2200 GT 03/27/25 11:30 03/27/25 11:30 1 GM Pantoprazole Sodium 50 ml @ 10 mls/hr Q5H IV 03/27/25 14:30 Octreotide Acetate 500 mcg/ Sodium Chloride 100 ml @ 10 mls/hr Q10H IV 03/27/25 14:30 objective heent: nc/at, mmm lungs: Adequate air exchange cvs: no rub abd: soft, bowel sounds audible ext: + edema laboratory and microbiology Laboratory Tests 03/27/25 03:27 Test 03/27/25 03:27 Range/Units Serum Glucose 110 H 74-106 mg/dL Assessment/Plan ROBERTO, on CKD 2, due to septic/cardiogenic shock-----> required acute Hd last 03/22 Acute respiratory failure intubated 11/15 Hyponatremia, likely due to advanced heart failure Septic shock, MRSA bacteremia Acute on chronic systolic heart failure NSTEMI AFib, with a RVR Hypertension Dyslipidemia Cirrhosis methamphetamine abuse Plan/recommendation: - tolerated minimal UF today approximately 1 L - we will continue to evaluate daily for kidney replacement therapy needs Dietary Evaluation Review Comments: Nutrition Recommendation: 1) EN Nepro Carbsteady @ 45ml/hr x 24hr (goal) along with Pro-stat 1 pk BID. TF at goal volume along with Pro-stat provide 2144 kcal (100%), 118 gm protein (100%), and 785 ml free water. 2) Consider TPN/PN if NPO>7 days 3) Monitor NPO status, lab values, weight trend, and I/O Expected Outcomes/Goals: Intake to meet >75% estimated needs Lab values to improve FU 2-3 days Plan discussed with: Other CC Plasma Assessment Blood Product Administration S: [id number] MANUEL WELSH MD Mar 27, 2025 15:45
[2025-03-27] MEDS: OCTREOTIDE ACETATE 500 MCG in SODIUM CHL 0.9% 99 ML IV SCH (17:30)
[2025-03-27] MEDS: PANTOPRAZOLE 40mg/50ML NS AE 50 ML IV SCH (17:30)
[2025-03-27 18:09] LABS: Fibrinogen 223.0 mg/dL (177-375); INR 1.14 (0.9-1.15); Partial Thromboplastin Time 27.3 SEC (24.5-34.5); Prothrombin Time 11.9 sec (9.3-11.8)
[2025-03-27] MEDS: EPOETIN ALFA-EPBX 10,000 UNIT/1ML VIAL SC ONE (23:08)
[2025-03-28] VITALS (109 sets, daily range): BP systolic 89–120; BP diastolic 42–79; PULSE 64–91; RESP 17–23; TEMP 97.8–98.3; O2SAT 71–100
[2025-03-28 03:37] LABS: Hemoglobin 8.2 g/dL (13.5-17.5); Nucleated Red Blood Cells % 0.0 %
[2025-03-28 03:40] LABS: Hematocrit 25.9 % (41.0-53.0); Mean Corpuscular Hemoglobin 23.8 pg (28.0-32.0); Mean Corpuscular Volume 74.7 fL (80.0-100.0)
[2025-03-28 03:50] LABS: Sodium 141 mmol/L (136-145)
[2025-03-28 03:51] LABS: Anion Gap 14 (5-15)
[2025-03-28 03:56] LABS: BUN/Creatinine Ratio 20.1 (10.0-20.0)
[2025-03-28 04:01] LABS: Blood Urea Nitrogen 62 mg/dL (9-23); Calcium 7.5 mg/dL (8.7-10.4); Carbon Dioxide 31 mmol/L (20-31); Chloride 96 mmol/L (98-107); Glucose 71 mg/dL (74-106); Potassium 3.1 mmol/L (3.5-5.1)
[2025-03-28 04:53] LABS: Anisocytosis Slight
[2025-03-28] MEDS: POTASSIUM CHL 20MEQ/100ML 100 ML IV ONE (06:26)
[2025-03-28] MEDS: CALCIUM GLUC 1,000mg/50ml-NS 50 ML IV ONE (06:26)
--- NOTE | 2025-03-28 07:15 | DVH ---
CHEST RADIOGRAPH Indication: pna Technique: Single frontal view of the chest was obtained COMPARISON: XY CHEST PORTABLE on DOS: 03/27/25, XY CHEST PORTABLE on DOS: 03/26/25, XY CHEST PORTABLE on DOS: 03/25/25, XY CHEST XRAY 1 VIEW on DOS: 03/24/25, XY CHEST XRAY 1 VIEW on DOS: 03/23/25 FINDINGS: Lines and Tubes: Endotracheal tube, enteric catheter, and right PICC in satisfactory position. Lungs: Multifocal airspace disease and pulmonary vascular congestion. Pleura: Small bilateral pleural effusions. No pneumothorax. Cardiomediastinal contours: Unremarkable Bones: Unremarkable IMPRESSION: Lines and tubes in satisfactory position. No significant interval change.
--- NOTE | 2025-03-28 09:33 | DVHPN2 ---
Reviewed: Care Plan, H&P, Labs, Medications, Previous Orders Changes from previous H/P or p: No Changes General: Per HPI Objective Vitals Vital Signs Date Time Temp Pulse Resp B/P (MAP) Pulse Ox O2 Delivery O2 Flow Rate FiO2 03/28/25 08:30 79 20 110/69 (83) 98 03/28/25 08:30 Mechanical Ventilator+ 30 30 03/28/25 08:00 98.3 98.3 03/27/25 22:30 30.0 Intake/Output Intake and Output 03/28/25 07:00 Intake Total 2565.249 ml Output Total 2375 ml Balance 190.249 ml Intake Oral 320 ml IV Total 1945.249 ml Blood Product 300 ml Output Urine Total 2375 ml # Bowel Movements 2 General Appearance: mild distress, Other (Intubated, on vent) HEENT: Atraumatic, PERRLA, Other (bleeding from oral mucosa) Lungs: Clear to auscultation, Normal air movement Cardiovascular: Normal S1, Normal S2 Abdomen: Normal bowel sounds, Soft, No tenderness, No hepatospenomegaly, No masses Genitourinary: No Apparent Abnormalities (Olsen catheter) Musculoskeletal: Other (Unable to assess) Neuro: Other (Unable to assess) Skin: Dry, Intact Psych/Mental Status: Other (Intubated, on vent, unable to exam) Medications Current Medications Medications Dose Ordered Sig/Zainab Route Start Time Stop Time Status Last Admin Dose Admin Ondansetron HCl 4 mg Q4HP PRN IV 03/18/25 19:15 Acetaminophen 650 mg Q6HP PRN PO 03/18/25 19:15 Nitroglycerin 0.4 mg Q5MINP PRN SL 03/18/25 19:15 Phenylephrine HCl 80 mg/Sodium Chloride 250 ml @ 7.5 mls/hr Q24H IV 03/19/25 09:15 03/28/25 01:13 7.5 MLS/HR Norepinephrine Bitartrate 32 mg/ Sodium Chloride 250 ml @ 0.938 mls/ hr Q24H IV 03/19/25 09:15 03/23/25 18:44 0.938 MLS/HR Vasopressin 20 units/Sodium Chloride 100 ml @ 9 mls/hr Q11H7M IV 03/19/25 09:15 Meropenem 50 ml @ 17 mls/hr DAILY IV 03/19/25 10:00 UNV Daptomycin / Sodium Chloride 50 ml @ 100 mls/hr DAILY IV 03/19/25 10:00 UNV Sodium Chloride 10 ml QSHIFT@, IV 03/19/25 10:00 03/27/25 22:11 10 ML Linezolid 300 ml @ 150 mls/hr Q12HR IV 03/19/25 22:00 03/27/25 22:11 150 MLS/HR Propofol 100 ml @ 2.721 mls/ hr Q24H IV 03/21/25 11:15 03/28/25 03:07 10.884 MLS/HR Midazolam HCl 100 ml @ 1 mls/hr Q24H IV 03/21/25 11:15 03/21/25 10:42 1 MLS/HR Fentanyl Citrate 250 ml @ 2.5 mls/hr Q24H IV 03/21/25 11:15 03/28/25 01:12 10 MLS/HR Atorvastatin Calcium 40 mg HS GT 03/21/25 22:00 03/27/25 22:10 40 MG Vancomycin HCl 0 ml @ 0 mls/hr PER PHARMACY IV 03/23/25 22:45 UNV Bumetanide 2.5 mg DAILY IV 03/24/25 10:00 03/27/25 08:07 2.5 MG Dobutamine HCl/ Dextrose 250 ml @ 12.03 mls/ hr [id number] IV 03/24/25 09:45 03/27/25 22:51 12.03 MLS/HR Mupirocin 1 applic BID EACHNOSTRI 03/25/25 10:00 03/30/25 09:59 03/27/25 22:11 1 APPLIC Enteral Nutritional Formula 1,000 ml 40ML/HR GT 03/26/25 08:15 Sucralfate 1 gm TID@0600,1130,2200 GT 03/27/25 11:30 03/28/25 06:26 1 GM Pantoprazole Sodium 50 ml @ 10 mls/hr Q5H IV 03/27/25 14:30 03/28/25 08:00 10 MLS/HR Octreotide Acetate 500 mcg/ Sodium Chloride 100 ml @ 10 mls/hr Q10H IV 03/27/25 14:30 03/28/25 01:34 10 MLS/HR Ceftriaxone Sodium 50 ml @ 100 mls/hr DAILY@09 IV 03/29/25 09:00 Laboratory Results Laboratory Tests 03/28/25 02:40 Chemistry Test 03/28/25 02:40 Calcium Level 7.5 mg/dL (8.7-10.4) L Magnesium Level 2.1 mg/dL (1.6-2.6) Coagulation Test 03/27/25 15:14 Prothrombin Time 11.9 sec (9.3-11.8) H Prothrombin Time INR 1.14 (0.9-1.15) Activated Partial Thromboplast Time 27.3 SEC (24.5-34.5) Fibrinogen 223 mg/dL (177-375) Fibrin Degradation Products Pending Urinalysis Test 03/21/25 00:00 03/21/25 03:10 Urine Color Dark-yellow (Yellow) Urine Clarity Turbid (Clear) H Urine pH 6.0 (5.0-9.0) Urine Specific [place] 1.014 (1.001-1.035) Urine Protein 2+ (Negative) H Urine Ketones Negative (Negative) Urine Blood 3+ /uL (Negative) H Urine Nitrite Negative (Negative) Urine Bilirubin 1+ (Negative) Urine Urobilinogen Normal mg/dL (Negative) Urine Leukocyte Esterase 2+ /uL (Negative) Urine RBC 896 /hpf (0 - 3) Urine Microscopic WBC 37 /HPF (0-3) H Urine Squamous Epithelial Cells Few /hpf (<5) Urine Bacteria None seen /hpf (None Seen) Urine Sperm Present /hpf (None Seen) Urine Glucose 1+ mg/dL (Normal) H Urine Creatinine 35.89 mg/dL (30.0-125.0) Urine Protein/Creatinine Ratio 30.21 Urine Sodium 95 mmol/L (40-220) Urine Total Protein 1084.4 mg/dL (1-14) H Microbiology Microbiology Date/Time Source Procedure Growth Status 03/23/25 17:50 Blood Blood Culture - Preliminary NO GROWTH AFTER 72 HOURS OF INCUBATION. Resulted 03/21/25 11:31 Sputum Gram Stain - Final Complete 03/21/25 11:31 Respiratory Culture - Final Methicillin Resistant S.aureus Complete 03/21/25 02:30 Urine - Olsen Port Urine Culture - Final Complete 03/19/25 23:20 Nose MRSA Screen - Final Methicillin Resistant S.aureus Complete Labs and/or images reviewed: Labs reviewed by me, Image(s) reviewed by me Assessment/Plan Assessment/Plan 59-year-old male presents for evaluation of shortness for breath. Patient reports a two day history of worsening shortness for breath with generalized weakness and chest pressure. Denies nausea or vomiting. No headache. Patient noted to be in AFib with RVR. Past Medical History Chronic kidney disease, CHF, AFib, dyslipidemia, hypertension 03/27 Events: Patient is still has oozing from HD catheter site. H&H stable. Receiving hemodialysis again today. Continues to be off vasopressors. Chest x- ray with persistent pulmonary vascular congestion and opacities. 03/28: Patient here with sepsis, GI bleed. Patient also has AFib currently rate controlled in the 70s, getting dobutamine and Sunny-Synephrine. Minimal vent settings RASS -1. Patient has a ascites has not had any paracentesis yet. There is concern for possible source in the ascites as patient is getting octreotide and Protonix drip. GI has not done any procedure yet for GI bleed, he has stool occult positive. Patient is also new requiring dialysis, has Devante catheter right IJ which has significant bleed, RN are trying pressure surgical snow pressure tapes pressure dressings. Continues to have slow bleeds. We will hold off CPAP trials for this reason. Patient also had MRSA nares and MRSA bacteremia., We will eventually require GELY. We will need ruled out endocarditis. Patient is on Zyvox, most recent blood cultures have been negative, we will add ceftriaxone as patient was possible concern for SBP. No FFP today, hemoglobin stable. Continue primary team's management otherwise. - cardiology has a amiodarone for decreasing preload and afterload. But patient also on Sunny-Synephrine, discharge with Cardiology and recommend Levophed versus dopamine for vasopressor. Defer further changes to Cardiology. Impression: -septic shock -acute hypoxic respiratory failure -acute on chronic systolic and diastolic heart failure -right pleural effusion -acute kidney injury -chronic kidney disease stage IIIB/four -PE ruled out -history of polysubstance abuse -thrombocytopenia -metabolic encephalopathy Plan: -nephrology consultation: HD per their discretion. Patient continues to be on Bumex IV push -continue vasopressor therapy -continue Zyvox -bronchodilators -PPI -continue current vent settings. -nephrology and cardiology consultation -repeat labs, chest x ray, abg,in a.m. Critical care time spent with patient discussing and formulating plan of care: 40 minutes. This does not include time spent performing procedures. Plan discussed with: Patient My Orders Orders - BABATUNDE GUILLEN MD Procedure Category Date Status Time Ceftriaxone 1gm/50ml PHA 03/29/25 In Process (Rocephin) 09:00 Ceftriaxone 1gm/50ml PHA 03/28/25 In Process (Rocephin) 09:30 Date of Service: Mar 28, 2025 Billing Provider: BABATUNDE GUILLEN MD Common Visit Codes: [id number] CARE 30-74 MIN BABATUNDE GUILLEN MD Mar 28, 2025 09:33
--- NOTE | 2025-03-28 11:36 | DVHPN2 ---
Consult Progress Note Subjective Other Systems: Remains in controlled atrial fibrillation/atrial flutter on environmental monitoring technician. Episodes of nonsustained V-tach seen overnight. Objective vital signs Vital Sign Date Time Temp Pulse Resp B/P (MAP) Pulse Ox O2 Delivery O2 Flow Rate FiO2 03/28/25 10:26 30 03/28/25 10:07 20 98 Mechanical Ventilator+ 03/28/25 10:00 88 111/65 (80) 03/28/25 08:00 98.3 98.3 03/27/25 22:30 30.0 Total Intake and Output 03/27/25 03/27/25 03/28/25 15:00 23:00 07:00 Intake Total 718.625 ml 943.312 ml 903.312 ml Output Total 900 ml 1475 ml Balance 718.625 ml 43.312 ml -571.688 ml medications Current Medications Medications Dose Ordered Sig/Zainab Route Start Time Stop Time Status Last Admin Dose Admin Ondansetron HCl 4 mg Q4HP PRN IV 03/18/25 19:15 Acetaminophen 650 mg Q6HP PRN PO 03/18/25 19:15 Nitroglycerin 0.4 mg Q5MINP PRN SL 03/18/25 19:15 Phenylephrine HCl 80 mg/Sodium Chloride 250 ml @ 7.5 mls/hr Q24H IV 03/19/25 09:15 03/28/25 01:13 7.5 MLS/HR Norepinephrine Bitartrate 32 mg/ Sodium Chloride 250 ml @ 0.938 mls/ hr Q24H IV 03/19/25 09:15 03/23/25 18:44 0.938 MLS/HR Vasopressin 20 units/Sodium Chloride 100 ml @ 9 mls/hr Q11H7M IV 03/19/25 09:15 Meropenem 50 ml @ 17 mls/hr DAILY IV 03/19/25 10:00 UNV Daptomycin / Sodium Chloride 50 ml @ 100 mls/hr DAILY IV 03/19/25 10:00 UNV Sodium Chloride 10 ml QSHIFT@,22 IV 03/19/25 10:00 03/28/25 09:33 10 ML Linezolid 300 ml @ 150 mls/hr Q12HR IV 03/19/25 22:00 03/28/25 09:32 150 MLS/HR Propofol 100 ml @ 2.721 mls/ hr Q24H IV 03/21/25 11:15 03/28/25 03:07 10.884 MLS/HR Midazolam HCl 100 ml @ 1 mls/hr Q24H IV 03/21/25 11:15 03/21/25 10:42 1 MLS/HR Fentanyl Citrate 250 ml @ 2.5 mls/hr Q24H IV 03/21/25 11:15 03/28/25 01:12 10 MLS/HR Atorvastatin Calcium 40 mg HS GT 03/21/25 22:00 03/27/25 22:10 40 MG Vancomycin HCl 0 ml @ 0 mls/hr PER PHARMACY IV 03/23/25 22:45 UNV Bumetanide 2.5 mg DAILY IV 03/24/25 10:00 03/28/25 09:32 2.5 MG Dobutamine HCl/ Dextrose 250 ml @ 12.03 mls/ hr [id number] IV 03/24/25 09:45 03/27/25 22:51 12.03 MLS/HR Mupirocin 1 applic BID EACHNOSTRI 03/25/25 10:00 03/30/25 09:59 03/28/25 09:33 1 APPLIC Enteral Nutritional Formula 1,000 ml 40ML/HR GT 03/26/25 08:15 Sucralfate 1 gm TID@0600,1130,2200 GT 03/27/25 11:30 03/28/25 09:32 1 GM Pantoprazole Sodium 50 ml @ 10 mls/hr Q5H IV 03/27/25 14:30 03/28/25 08:00 10 MLS/HR Octreotide Acetate 500 mcg/ Sodium Chloride 100 ml @ 10 mls/hr Q10H IV 03/27/25 14:30 03/28/25 01:34 10 MLS/HR Ceftriaxone Sodium 50 ml @ 100 mls/hr DAILY@09 IV 03/29/25 09:00 Examination: GENERAL:Abnormal, LUNGS:Abnormal (Mechanically ventilated), CVS:Abnormal (Controlled AFib/flutter), NEURO:Abnormal (Chemically sedated) laboratory and microbiology Laboratory Tests 03/28/25 02:40 Test 03/28/25 02:40 Range/Units Serum Glucose 71 L 74-106 mg/dL Problem List/Assessment/Plan Problem List/Assessment/Plan Acute on Chronic HFrEF, EF 15% (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 [place]) Plan: Transthoracic echocardiogram revealed LVEF 20% with severe global hypokinesis, biatrial and biventricular enlargement, aortic root enlargement, mild thickening of the mitral leaflets, mild mitral annular calcification, mild aortic sclerosis, diminished RV function, doming of the interventricular septum in systole and diastole consistent with a pressure in the volume overload/pulmonary hypertension. Initially scheduled for a transesophageal echocardiogram on 03/25/2025 to rule out subacute infective endocarditis. Given oral bleed, we will await for resolution and re-schedule GELY accordingly. 03/27/25: Patient still experiencing copious oral bleeding now with bleeding noted to right IJ site during hemodialysis. 03/28/25: Oral bleeding continues. Hemoglobin and platelet count trending down today. In the meantime, discontinue Lovenox or any other AC/antiplatelet therapy given oral bleeding, thrombocytopenia, and downtrending hemoglobin. [id number] VASc score: 2 points, HAS-BLED score: 4 points. Continue SCDs in the meantime. Continue PPI. Hold antiarrhythmic therapy, as patient is allergic to amiodarone . Continue vasopressor for hemodynamic support. Initiate GDMT for CHF as renal function and hemodynamics permit. Continue Nephrology recommendations. DVT/VTE prophylaxis: SCDs. Consider GI consultation given oral bleed and positive stool occult findings. Further orders per clinical course. Thank you for allowing us to care for this patient. Critical care time: 30 min. This medical document was created using an electronic medical record system with voice recognition software and computerized dictation system. Although this document has been carefully reviewed, there might still be some phonetic and typographical errors. Occasional wrong-word or ``sound-alike substitutions may have occurred due to the inherent limitations of voice recognition software. These areas are purely typographical due to imperfections of the software programs and do not reflect any compromise in the patient's medical care. Please read the chart carefully and recognize, using context, where these substitutions have occurred. Plan discussed with: Other (Covering bedside DAVID Roberson) Dietary Evaluation Review Comments: Nutrition Recommendation: 1) EN Nepro Carbsteady @ 45ml/hr x 24hr (goal) along with Pro-stat 1 pk BID. TF at goal volume along with Pro-stat provide 2144 kcal (100%), 118 gm protein (100%), and 785 ml free water. 2) Consider TPN/PN if NPO>7 days 3) Monitor NPO status, lab values, weight trend, and I/O Expected Outcomes/Goals: Intake to meet >75% estimated needs Lab values to improve FU 2-3 days CC Plasma Assessment Blood Product Administration S: [id number] Date of Service: Mar 28, 2025 Billing Provider: SANDEEP VALDEZ Common Visit Codes: [id number] CARE 30-74 MIN SANDEEP VALDEZ Mar 28, 2025 11:36
[2025-03-28] MEDS: POTASSIUM CHL 20MEQ/100ML 100 ML IV SCH (12:15)
--- NOTE | 2025-03-28 12:38 | DVHPN2 ---
Progress Note - Dictate Date Seen: Mar 28, 2025 Medical Necessity Reason Pt with a Central, PICC or Fol: Yes The following are medically ne: Central Line (HD catheter), Olsen Catheter Subjective Noted oozing from dialysis catheter insertion site. vital signs Vital Sign Date Time Temp Pulse Resp B/P (MAP) Pulse Ox O2 Delivery O2 Flow Rate FiO2 03/28/25 11:50 77 20 105/72 (83) 99 30 03/28/25 10:07 Mechanical Ventilator+ 03/28/25 08:00 98.3 98.3 03/27/25 22:30 30.0 Total Intake and Output 03/27/25 03/27/25 03/28/25 15:00 23:00 07:00 Intake Total 718.625 ml 943.312 ml 903.312 ml Output Total 900 ml 1475 ml Balance 718.625 ml 43.312 ml -571.688 ml medications Current Medications Medications Dose Ordered Sig/Zainab Route Start Time Stop Time Status Last Admin Dose Admin Ondansetron HCl 4 mg Q4HP PRN IV 03/18/25 19:15 Acetaminophen 650 mg Q6HP PRN PO 03/18/25 19:15 Nitroglycerin 0.4 mg Q5MINP PRN SL 03/18/25 19:15 Phenylephrine HCl 80 mg/Sodium Chloride 250 ml @ 7.5 mls/hr Q24H IV 03/19/25 09:15 03/28/25 01:13 7.5 MLS/HR Norepinephrine Bitartrate 32 mg/ Sodium Chloride 250 ml @ 0.938 mls/ hr Q24H IV 03/19/25 09:15 03/23/25 18:44 0.938 MLS/HR Vasopressin 20 units/Sodium Chloride 100 ml @ 9 mls/hr Q11H7M IV 03/19/25 09:15 Meropenem 50 ml @ 17 mls/hr DAILY IV 03/19/25 10:00 UNV Daptomycin / Sodium Chloride 50 ml @ 100 mls/hr DAILY IV 03/19/25 10:00 UNV Sodium Chloride 10 ml QSHIFT@10,22 IV 03/19/25 10:00 03/28/25 09:33 10 ML Linezolid 300 ml @ 150 mls/hr Q12HR IV 03/19/25 22:00 03/28/25 09:32 150 MLS/HR Propofol 100 ml @ 2.721 mls/ hr Q24H IV 03/21/25 11:15 03/28/25 03:07 10.884 MLS/HR Midazolam HCl 100 ml @ 1 mls/hr Q24H IV 03/21/25 11:15 03/21/25 10:42 1 MLS/HR Fentanyl Citrate 250 ml @ 2.5 mls/hr Q24H IV 03/21/25 11:15 03/28/25 01:12 10 MLS/HR Atorvastatin Calcium 40 mg HS GT 03/21/25 22:00 03/27/25 22:10 40 MG Vancomycin HCl 0 ml @ 0 mls/hr PER PHARMACY IV 03/23/25 22:45 UNV Bumetanide 2.5 mg DAILY IV 03/24/25 10:00 03/28/25 09:32 2.5 MG Mupirocin 1 applic BID EACHNOSTRI 03/25/25 10:00 03/30/25 09:59 03/28/25 09:33 1 APPLIC Enteral Nutritional Formula 1,000 ml 40ML/HR GT 03/26/25 08:15 Sucralfate 1 gm TID@0600,1130,2200 GT 03/27/25 11:30 03/28/25 09:32 1 GM Pantoprazole Sodium 50 ml @ 10 mls/hr Q5H IV 03/27/25 14:30 03/28/25 08:00 10 MLS/HR Octreotide Acetate 500 mcg/ Sodium Chloride 100 ml @ 10 mls/hr Q10H IV 03/27/25 14:30 03/28/25 12:00 10 MLS/HR Ceftriaxone Sodium 50 ml @ 100 mls/hr DAILY@09 IV 03/29/25 09:00 Potassium Chloride 100 ml @ 50 mls/hr Q2H IV 03/28/25 12:15 03/28/25 16:14 objective heent: nc/at, mmm lungs: Adequate air exchange cvs: no rub abd: soft, bowel sounds audible ext: trace edema laboratory and microbiology Laboratory Tests 03/28/25 02:40 Test 03/28/25 02:40 Range/Units Serum Glucose 71 L 74-106 mg/dL Assessment/Plan ROBERTO, on CKD 2, due to septic/cardiogenic shock-----> required acute Hd last 03/22 Acute respiratory failure intubated 03/21 Hyponatremia, likely due to advanced heart failure Septic shock, MRSA bacteremia Acute on chronic systolic heart failure NSTEMI AFib, with a RVR Hypertension Dyslipidemia Cirrhosis methamphetamine abuse Plan/recommendation: -agree with continuing to hold pressure at site with sand bag/weight -we will supplement with additional 40 mEq KCL -without urgent indication for dialysis today. Dietary Evaluation Review Comments: Nutrition Recommendation: 1) EN Nepro Carbsteady @ 45ml/hr x 24hr (goal) along with Pro-stat 1 pk BID. TF at goal volume along with Pro-stat provide 2144 kcal (100%), 118 gm protein (100%), and 785 ml free water. 2) Consider TPN/PN if NPO>7 days 3) Monitor NPO status, lab values, weight trend, and I/O Expected Outcomes/Goals: Intake to meet >75% estimated needs Lab values to improve FU 2-3 days Plan discussed with: Other CC Plasma Assessment Blood Product Administration S: [id number] MANUEL WELSH MD Mar 28, 2025 12:38
--- NOTE | 2025-03-28 13:32 | DVHPN2 ---
Progress Note - Dictate Date Seen: Mar 28, 2025 Medical Necessity Reason Pt with a Central, PICC or Fol: Yes The following are medically ne: Central Line (HD catheter), Olsen Catheter vital signs Vital Sign Date Time Temp Pulse Resp B/P (MAP) Pulse Ox O2 Delivery O2 Flow Rate FiO2 03/28/25 13:00 77 20 92/59 (70) 98 03/28/25 12:45 97.8 97.8 03/28/25 12:00 Mechanical Ventilator+ 30 30 03/27/25 22:30 30.0 Total Intake and Output 03/27/25 03/27/25 03/28/25 15:00 23:00 07:00 Intake Total 718.625 ml 943.312 ml 903.312 ml Output Total 900 ml 1475 ml Balance 718.625 ml 43.312 ml -571.688 ml medications Current Medications Medications Dose Ordered Sig/Zainab Route Start Time Stop Time Status Last Admin Dose Admin Ondansetron HCl 4 mg Q4HP PRN IV 03/18/25 19:15 Acetaminophen 650 mg Q6HP PRN PO 03/18/25 19:15 Nitroglycerin 0.4 mg Q5MINP PRN SL 03/18/25 19:15 Phenylephrine HCl 80 mg/Sodium Chloride 250 ml @ 7.5 mls/hr Q24H IV 03/19/25 09:15 03/28/25 01:13 7.5 MLS/HR Norepinephrine Bitartrate 32 mg/ Sodium Chloride 250 ml @ 0.938 mls/ hr Q24H IV 03/19/25 09:15 03/23/25 18:44 0.938 MLS/HR Vasopressin 20 units/Sodium Chloride 100 ml @ 9 mls/hr Q11H7M IV 03/19/25 09:15 Meropenem 50 ml @ 17 mls/hr DAILY IV 03/19/25 10:00 UNV Daptomycin / Sodium Chloride 50 ml @ 100 mls/hr DAILY IV 03/19/25 10:00 UNV Sodium Chloride 10 ml QSHIFT@ IV 03/19/25 10:00 03/28/25 09:33 10 ML Linezolid 300 ml @ 150 mls/hr Q12HR IV 03/19/25 22:00 03/28/25 09:32 150 MLS/HR Propofol 100 ml @ 2.721 mls/ hr Q24H IV 03/21/25 11:15 03/28/25 03:07 10.884 MLS/HR Midazolam HCl 100 ml @ 1 mls/hr Q24H IV 03/21/25 11:15 03/21/25 10:42 1 MLS/HR Fentanyl Citrate 250 ml @ 2.5 mls/hr Q24H IV 03/21/25 11:15 03/28/25 01:12 10 MLS/HR Atorvastatin Calcium 40 mg HS GT 03/21/25 22:00 03/27/25 22:10 40 MG Vancomycin HCl 0 ml @ 0 mls/hr PER PHARMACY IV 03/23/25 22:45 UNV Bumetanide 2.5 mg DAILY IV 03/24/25 10:00 03/28/25 09:32 2.5 MG Mupirocin 1 applic BID EACHNOSTRI 03/25/25 10:00 03/30/25 09:59 03/28/25 09:33 1 APPLIC Enteral Nutritional Formula 1,000 ml 40ML/HR GT 03/26/25 08:15 Sucralfate 1 gm TID@0600,1130,2200 GT 03/27/25 11:30 03/28/25 09:32 1 GM Pantoprazole Sodium 50 ml @ 10 mls/hr Q5H IV 03/27/25 14:30 03/28/25 13:26 10 MLS/HR Octreotide Acetate 500 mcg/ Sodium Chloride 100 ml @ 10 mls/hr Q10H IV 03/27/25 14:30 03/28/25 12:00 10 MLS/HR Ceftriaxone Sodium 50 ml @ 100 mls/hr DAILY@09 IV 03/29/25 09:00 Potassium Chloride 100 ml @ 50 mls/hr Q2H IV 03/28/25 12:15 03/28/25 16:14 03/28/25 12:15 50 MLS/HR laboratory and microbiology Laboratory Tests 03/28/25 02:40 Test 03/28/25 02:40 Range/Units Serum Glucose 71 L 74-106 mg/dL Assessment/Plan Impression Acute hypoxemic respiratory failure Hx of substance abuse Bacteremia ROBERTO Patient seen and examined in ICU Events On mechanical ventilation S/p intubation PEEP 5, FiO2 30% minimal secretions coagulopathy related to sepsis and liver disease oozing noted from injection and line sites vitamin k given Labs and imaging reviewed ABG reviewed Management Vent support Titrate to maintain sats 90% or above Sedation for vent synchrony Continue antibiotics F/u cultures and ID Bronchodilators Monitor renal function Monitor electrolytes Supplement as needed Pressors as needed for hemodynamic support To maintain a mean arterial pressure of 65 mmHg Awaiting GELY when more stable F/u cardiology Vitamin K Bronchoscopy deferred in view of minimal secretions DVT prophylaxis Critical care time 35 minutes Dietary Evaluation Review Comments: Nutrition Recommendation: 1) EN Nepro Carbsteady @ 45ml/hr x 24hr (goal) along with Pro-stat 1 pk BID. TF at goal volume along with Pro-stat provide 2144 kcal (100%), 118 gm protein (100%), and 785 ml free water. 2) Consider TPN/PN if NPO>7 days 3) Monitor NPO status, lab values, weight trend, and I/O Expected Outcomes/Goals: Intake to meet >75% estimated needs Lab values to improve FU 2-3 days Plan discussed with: Other (Rn) CC Plasma Assessment Blood Product Administration S: [id number] JESSICA RAYMUNDO MD Mar 28, 2025 13:32
[2025-03-28 14:00] LABS: Hemoglobin 8.1 g/dL (13.5-17.5)
[2025-03-28 14:02] LABS: Hematocrit 26.0 % (41.0-53.0); Mean Corpuscular Hemoglobin 23.7 pg (28.0-32.0); Mean Corpuscular Volume 76.0 fL (80.0-100.0); Nucleated Red Blood Cells % 0.0 %; Potassium 3.6 mmol/L (3.5-5.1); Sodium 139 mmol/L (136-145)
[2025-03-28 14:03] LABS: Anion Gap 13 (5-15); Carbon Dioxide 30 mmol/L (20-31)
[2025-03-28 14:09] LABS: BUN/Creatinine Ratio 18.1 (10.0-20.0); Glucose 83 mg/dL (74-106)
[2025-03-28 14:10] LABS: Blood Urea Nitrogen 56 mg/dL (9-23); Calcium 7.8 mg/dL (8.7-10.4); Chloride 96 mmol/L (98-107)
--- NOTE | 2025-03-28 18:46 | DVHPN2 ---
Progress Note - Dictate Date Seen: Mar 28, 2025 Medical Necessity Reason Pt with a Central, PICC or Fol: Yes The following are medically ne: Central Line (HD catheter), Olsen Catheter Subjective Patient with continues oozing today from the dialysis catheter site also Remains in controlled atrial fibrillation/atrial flutter on cardiac catheterization technician. Episodes of nonsustained V-tach seen overnight. Hemoglobin stable at 8.1. Patient is S/P 2 units FFP PT INR is normalized Vitamin K given vital signs Vital Sign Date Time Temp Pulse Resp B/P (MAP) Pulse Ox O2 Delivery O2 Flow Rate FiO2 03/28/25 18:10 80 03/28/25 18:09 30 03/28/25 18:09 20 99 Mechanical Ventilator+ 03/28/25 18:02 104/73 (83) 03/28/25 16:00 97.8 97.8 03/27/25 22:30 30.0 Total Intake and Output 03/27/25 03/27/25 03/28/25 15:00 23:00 07:00 Intake Total 718.625 ml 943.312 ml 903.312 ml Output Total 900 ml 1475 ml Balance 718.625 ml 43.312 ml -571.688 ml medications Current Medications Medications Dose Ordered Sig/Zainab Route Start Time Stop Time Status Last Admin Dose Admin Ondansetron HCl 4 mg Q4HP PRN IV 03/18/25 19:15 Acetaminophen 650 mg Q6HP PRN PO 03/18/25 19:15 Nitroglycerin 0.4 mg Q5MINP PRN SL 03/18/25 19:15 Phenylephrine HCl 80 mg/Sodium Chloride 250 ml @ 7.5 mls/hr Q24H IV 03/19/25 09:15 03/28/25 01:13 7.5 MLS/HR Norepinephrine Bitartrate 32 mg/ Sodium Chloride 250 ml @ 0.938 mls/ hr Q24H IV 03/19/25 09:15 03/23/25 18:44 0.938 MLS/HR Vasopressin 20 units/Sodium Chloride 100 ml @ 9 mls/hr Q11H7M IV 03/19/25 09:15 Meropenem 50 ml @ 17 mls/hr DAILY IV 03/19/25 10:00 UNV Daptomycin / Sodium Chloride 50 ml @ 100 mls/hr DAILY IV 03/19/25 10:00 UNV Sodium Chloride 10 ml QSHIFT@10,22 IV 03/19/25 10:00 03/28/25 09:33 10 ML Linezolid 300 ml @ 150 mls/hr Q12HR IV 03/19/25 22:00 03/28/25 09:32 150 MLS/HR Propofol 100 ml @ 2.721 mls/ hr Q24H IV 03/21/25 11:15 03/28/25 14:14 10.884 MLS/HR Midazolam HCl 100 ml @ 1 mls/hr Q24H IV 03/21/25 11:15 03/21/25 10:42 1 MLS/HR Fentanyl Citrate 250 ml @ 2.5 mls/hr Q24H IV 03/21/25 11:15 03/28/25 01:12 10 MLS/HR Atorvastatin Calcium 40 mg HS GT 03/21/25 22:00 03/27/25 22:10 40 MG Vancomycin HCl 0 ml @ 0 mls/hr PER PHARMACY IV 03/23/25 22:45 UNV Bumetanide 2.5 mg DAILY IV 03/24/25 10:00 03/28/25 09:32 2.5 MG Mupirocin 1 applic BID EACHNOSTRI 03/25/25 10:00 03/30/25 09:59 03/28/25 09:33 1 APPLIC Enteral Nutritional Formula 1,000 ml 40ML/HR GT 03/26/25 08:15 Sucralfate 1 gm TID@0600,1130,2200 GT 03/27/25 11:30 03/28/25 09:32 1 GM Pantoprazole Sodium 50 ml @ 10 mls/hr Q5H IV 03/27/25 14:30 03/28/25 17:43 10 MLS/HR Octreotide Acetate 500 mcg/ Sodium Chloride 100 ml @ 10 mls/hr Q10H IV 03/27/25 14:30 03/28/25 12:00 10 MLS/HR Ceftriaxone Sodium 50 ml @ 100 mls/hr DAILY@09 IV 03/29/25 09:00 objective Male patient frail-appearing, intubated and mechanically ventilated, RASS -1, responding to verbal and touch commands General: Well-built, afebrile, palor, mucosae are moist. Bleeding through right IJ catheter, mucosal membrane. Cardiovascular: Tachycardic and irregular S1 and S2. No murmurs, gallops or rubs. No JVD elevation. Pedal edema bilaterally Respiratory: Decreased breath sounds heard on auscultation, mechanically ventilated Abdomen: Soft, nontender, nondistended, normoactive bowel sounds, no rebound tenderness, no organomegaly, no masses Genitourinary: Deferred laboratory and microbiology Laboratory Tests 03/28/25 13:02 Test 03/28/25 13:02 Range/Units Serum Glucose 83 74-106 mg/dL Problems(with codes): (1) Uncontrolled atrial fibrillation (2) CHF exacerbation (3) Elevated troponin (4) Dehydration with hyponatremia (5) CKD (chronic kidney disease) stage 4, GFR 15-29 ml/min Prognosis Assessment plan Patient appears to have a generalized coagulopathy and not specific active GI bleeding , stool is occult blood positive Continue conservative management from GI point of view Patient is on IV Protonix drip Currently as on IV octreotide but we can probably taper that off in the next 24- 48 hours Hold off CPAP trials for now Continue IV antibiotics Patient is on pressor support and amiodarone Currently not stable for any endoscopic workup Monitor labs and I will follow up patient with you Dietary Evaluation Review Comments: Nutrition Recommendation: 1) EN Nepro Carbsteady @ 45ml/hr x 24hr (goal) along with Pro-stat 1 pk BID. TF at goal volume along with Pro-stat provide 2144 kcal (100%), 118 gm protein (100%), and 785 ml free water. 2) Consider TPN/PN if NPO>7 days 3) Monitor NPO status, lab values, weight trend, and I/O Expected Outcomes/Goals: Intake to meet >75% estimated needs Lab values to improve FU 2-3 days Plan discussed with: Other (Dr Estrada) CC Plasma Assessment Blood Product Administration S: [id number] CHIVO GANDHI MD Mar 28, 2025 18:46
[2025-03-28] MEDS: phytonadione 10 MG in SODIUM CHL 0.9% 50 ML IV ONE (21:45)
[2025-03-29] VITALS (109 sets, daily range): BP systolic 80–127; BP diastolic 45–88; PULSE 64–111; RESP 14–22; TEMP 97.6–99; O2SAT 83–100
[2025-03-29 03:26] LABS: Mean Corpuscular Hemoglobin 23.6 pg (28.0-32.0); Nucleated Red Blood Cells % 0.0 %
[2025-03-29 03:28] LABS: Hematocrit 26.9 % (41.0-53.0); Hemoglobin 8.6 g/dL (13.5-17.5); Mean Corpuscular Volume 74.1 fL (80.0-100.0)
[2025-03-29 03:29] LABS: Potassium 3.5 mmol/L (3.5-5.1); Sodium 141 mmol/L (136-145)
[2025-03-29 03:30] LABS: Anion Gap 15 (5-15)
[2025-03-29 03:32] LABS: Calcium 7.7 mg/dL (8.7-10.4); Carbon Dioxide 32 mmol/L (20-31); Chloride 94 mmol/L (98-107)
[2025-03-29 03:35] LABS: BUN/Creatinine Ratio 21.2 (10.0-20.0); Glucose 93 mg/dL (74-106)
[2025-03-29 03:39] LABS: Blood Urea Nitrogen 70 mg/dL (9-23)
[2025-03-29 05:50] LABS: Anisocytosis Moderate
[2025-03-29 09:46] LABS: Base Excess 4.6 mmol/L (-2.0-3.0)
--- NOTE | 2025-03-29 09:47 | DVHPN2 ---
Reviewed: Care Plan, H&P, Labs, Medications, Previous Orders Changes from previous H/P or p: No Changes General: Per HPI Objective Vitals Vital Signs Date Time Temp Pulse Resp B/P (MAP) Pulse Ox O2 Delivery O2 Flow Rate FiO2 03/29/25 08:45 79 20 91/61 (71) 96 03/29/25 08:32 30 03/29/25 08:00 Mechanical Ventilator+ 03/29/25 08:00 98.3 98.3 03/27/25 22:30 30.0 Intake/Output Intake and Output 03/29/25 07:00 Intake Total 2500.706 ml Output Total 6500 ml Balance -3999.294 ml Intake Oral 275 ml IV Total 1963.706 ml Tube Feeding 262 ml Output Urine Total 6500 ml # Bowel Movements 7 General Appearance: mild distress, Other (Intubated, on vent) HEENT: Atraumatic, PERRLA, Other (bleeding from oral mucosa) Lungs: Clear to auscultation, Normal air movement Cardiovascular: Normal S1, Normal S2 Abdomen: Normal bowel sounds, Soft, No tenderness, No hepatospenomegaly, No masses Genitourinary: No Apparent Abnormalities (Olsen catheter) Musculoskeletal: Other (Unable to assess) Neuro: Other (Unable to assess) Skin: Dry, Intact Psych/Mental Status: Other (Intubated, on vent, unable to exam) Medications Current Medications Medications Dose Ordered Sig/Zainab Route Start Time Stop Time Status Last Admin Dose Admin Ondansetron HCl 4 mg Q4HP PRN IV 03/18/25 19:15 Acetaminophen 650 mg Q6HP PRN PO 03/18/25 19:15 Nitroglycerin 0.4 mg Q5MINP PRN SL 03/18/25 19:15 Phenylephrine HCl 80 mg/Sodium Chloride 250 ml @ 7.5 mls/hr Q24H IV 03/19/25 09:15 03/29/25 06:25 7.5 MLS/HR Norepinephrine Bitartrate 32 mg/ Sodium Chloride 250 ml @ 0.938 mls/ hr Q24H IV 03/19/25 09:15 03/23/25 18:44 0.938 MLS/HR Vasopressin 20 units/Sodium Chloride 100 ml @ 9 mls/hr Q11H7M IV 03/19/25 09:15 Meropenem 50 ml @ 17 mls/hr DAILY IV 03/19/25 10:00 UNV Daptomycin / Sodium Chloride 50 ml @ 100 mls/hr DAILY IV 03/19/25 10:00 UNV Sodium Chloride 10 ml QSHIFT@, IV 03/19/25 10:00 03/28/25 21:46 10 ML Linezolid 300 ml @ 150 mls/hr Q12HR IV 03/19/25 22:00 03/28/25 21:46 150 MLS/HR Propofol 100 ml @ 2.721 mls/ hr Q24H IV 03/21/25 11:15 03/29/25 08:46 16.326 MLS/HR Midazolam HCl 100 ml @ 1 mls/hr Q24H IV 03/21/25 11:15 03/21/25 10:42 1 MLS/HR Fentanyl Citrate 250 ml @ 2.5 mls/hr Q24H IV 03/21/25 11:15 03/29/25 04:52 10 MLS/HR Atorvastatin Calcium 40 mg HS GT 03/21/25 22:00 03/28/25 21:46 40 MG Vancomycin HCl 0 ml @ 0 mls/hr PER PHARMACY IV 03/23/25 22:45 UNV Bumetanide 2.5 mg DAILY IV 03/24/25 10:00 03/28/25 09:32 2.5 MG Mupirocin 1 applic BID EACHNOSTRI 03/25/25 10:00 03/30/25 09:59 03/28/25 21:47 1 APPLIC Enteral Nutritional Formula 1,000 ml 40ML/HR GT 03/26/25 08:15 Sucralfate 1 gm TID@0600,1130,2200 GT 03/27/25 11:30 03/29/25 05:58 1 GM Pantoprazole Sodium 50 ml @ 10 mls/hr Q5H IV 03/27/25 14:30 03/29/25 08:42 10 MLS/HR Octreotide Acetate 500 mcg/ Sodium Chloride 100 ml @ 10 mls/hr Q10H IV 03/27/25 14:30 03/29/25 00:13 10 MLS/HR Ceftriaxone Sodium 50 ml @ 100 mls/hr DAILY@09 IV 03/29/25 09:00 03/29/25 08:43 100 MLS/HR Laboratory Results Laboratory Tests 03/29/25 02:50 Chemistry Test 03/28/25 13:02 03/29/25 02:50 Calcium Level 7.8 mg/dL (8.7-10.4) L 7.7 mg/dL (8.7-10.4) L Urinalysis Test 03/21/25 00:00 03/21/25 03:10 Urine Color Dark-yellow (Yellow) Urine Clarity Turbid (Clear) H Urine pH 6.0 (5.0-9.0) Urine Specific [place] 1.014 (1.001-1.035) Urine Protein 2+ (Negative) H Urine Ketones Negative (Negative) Urine Blood 3+ /uL (Negative) H Urine Nitrite Negative (Negative) Urine Bilirubin 1+ (Negative) Urine Urobilinogen Normal mg/dL (Negative) Urine Leukocyte Esterase 2+ /uL (Negative) Urine RBC 896 /hpf (0 - 3) Urine Microscopic WBC 37 /HPF (0-3) H Urine Squamous Epithelial Cells Few /hpf (<5) Urine Bacteria None seen /hpf (None Seen) Urine Sperm Present /hpf (None Seen) Urine Glucose 1+ mg/dL (Normal) H Urine Creatinine 35.89 mg/dL (30.0-125.0) Urine Protein/Creatinine Ratio 30.21 Urine Sodium 95 mmol/L (40-220) Urine Total Protein 1084.4 mg/dL (1-14) H Microbiology Microbiology Date/Time Source Procedure Growth Status 03/23/25 17:50 Blood Blood Culture - Final NO GROWTH AFTER 5 DAYS OF INCUBATION. Complete 03/21/25 11:31 Sputum Gram Stain - Final Complete 03/21/25 11:31 Respiratory Culture - Final Methicillin Resistant S.aureus Complete 03/21/25 02:30 Urine - [place] Urine Culture - Final Complete 03/19/25 23:20 Nose MRSA Screen - Final Methicillin Resistant S.aureus Complete Labs and/or images reviewed: Labs reviewed by me, Image(s) reviewed by me Assessment/Plan Assessment/Plan 59-year-old male presents for evaluation of shortness for breath. Patient reports a two day history of worsening shortness for breath with generalized weakness and chest pressure. Denies nausea or vomiting. No headache. Patient noted to be in AFib with RVR. Past Medical History Chronic kidney disease, CHF, AFib, dyslipidemia, hypertension 03/27 Events: Patient is still has oozing from HD catheter site. H&H stable. Receiving hemodialysis again today. Continues to be off vasopressors. Chest x- ray with persistent pulmonary vascular congestion and opacities. 03/28: Patient here with sepsis, GI bleed. Patient also has AFib currently rate controlled in the 70s, getting dobutamine and Sunny-Synephrine. Minimal vent settings RASS -1. Patient has a ascites has not had any paracentesis yet. There is concern for possible source in the ascites as patient is getting octreotide and Protonix drip. GI has not done any procedure yet for GI bleed, he has stool occult positive. Patient is also new requiring dialysis, has Devante catheter right IJ which has significant bleed, RN are trying pressure surgical snow pressure tapes pressure dressings. Continues to have slow bleeds. We will hold off CPAP trials for this reason. Patient also had MRSA nares and MRSA bacteremia., We will eventually require GELY. We will need ruled out endocarditis. Patient is on Zyvox, most recent blood cultures have been negative, we will add ceftriaxone as patient was possible concern for SBP. No FFP today, hemoglobin stable. Continue primary team's management otherwise. - cardiology has a amiodarone for decreasing preload and afterload. But patient also on Sunny-Synephrine, discharge with Cardiology and recommend Levophed versus dopamine for vasopressor. Defer further changes to Cardiology. 03/29: Cardiology has off dobutamine, increased Bumex to 2.5 b.i.d.. Patient is very well net negative, almost 3-4 L urine output daily. Continuing oral tube feeds. Right HD Devante cath is not bleeding as much anymore. We will continue to hold off hold off CPAP trials for now. Looking more euvolemic. We will continue diuresis and possibly we will have to deescalate off of diuretics tomorrow with primary team. Continues Protonix drip and octreotide. Continue antibiotics as yesterday ceftriaxone and Zyvox. No significant changes today minimal vent settings. Impression: -septic shock -acute hypoxic respiratory failure -acute on chronic systolic and diastolic heart failure -right pleural effusion -acute kidney injury -chronic kidney disease stage IIIB/four -PE ruled out -history of polysubstance abuse -thrombocytopenia -metabolic encephalopathy Plan: -nephrology consultation: HD per their discretion. Patient continues to be on Bumex IV push -continue vasopressor therapy -continue Zyvox -bronchodilators -PPI -continue current vent settings. -nephrology and cardiology consultation -repeat labs, chest x ray, abg,in a.m. Critical care time spent with patient discussing and formulating plan of care: 40 minutes. This does not include time spent performing procedures. Plan discussed with: Other Date of Service: Mar 29, 2025 Billing Provider: BABATUNDE GUILLEN MD Common Visit Codes: [id number] CARE 30-74 MIN BABATUNDE GUILLEN MD Mar 29, 2025 09:47
--- NOTE | 2025-03-29 13:38 | DVHPN2 ---
Progress Note - Dictate Date Seen: Mar 29, 2025 Medical Necessity Reason Pt with a Central, PICC or Fol: Yes The following are medically ne: Central Line (HD catheter), Olsen Catheter Subjective Significant urine output, net negative almost 4 L yesterday. vital signs Vital Sign Date Time Temp Pulse Resp B/P (MAP) Pulse Ox O2 Delivery O2 Flow Rate FiO2 03/29/25 12:56 85 20 105/65 (78) 97 30 03/29/25 12:00 Mechanical Ventilator+ 03/29/25 08:00 98.3 98.3 03/27/25 22:30 30.0 Total Intake and Output 03/28/25 03/28/25 03/29/25 15:00 23:00 07:00 Intake Total 889.562 ml 1037.072 ml 574.072 ml Output Total 4050 ml 2450 ml Balance 889.562 ml -3012.928 ml -1875.928 ml medications Current Medications Medications Dose Ordered Sig/Zainab Route Start Time Stop Time Status Last Admin Dose Admin Ondansetron HCl 4 mg Q4HP PRN IV 03/18/25 19:15 Acetaminophen 650 mg Q6HP PRN PO 03/18/25 19:15 Nitroglycerin 0.4 mg Q5MINP PRN SL 03/18/25 19:15 Phenylephrine HCl 80 mg/Sodium Chloride 250 ml @ 7.5 mls/hr Q24H IV 03/19/25 09:15 03/29/25 06:25 7.5 MLS/HR Norepinephrine Bitartrate 32 mg/ Sodium Chloride 250 ml @ 0.938 mls/ hr Q24H IV 03/19/25 09:15 03/23/25 18:44 0.938 MLS/HR Vasopressin 20 units/Sodium Chloride 100 ml @ 9 mls/hr Q11H7M IV 03/19/25 09:15 Meropenem 50 ml @ 17 mls/hr DAILY IV 03/19/25 10:00 UNV Daptomycin / Sodium Chloride 50 ml @ 100 mls/hr DAILY IV 03/19/25 10:00 UNV Sodium Chloride 10 ml QSHIFT@10,22 IV 03/19/25 10:00 03/29/25 11:13 10 ML Linezolid 300 ml @ 150 mls/hr Q12HR IV 03/19/25 22:00 03/29/25 11:12 150 MLS/HR Propofol 100 ml @ 2.721 mls/ hr Q24H IV 03/21/25 11:15 03/29/25 08:46 16.326 MLS/HR Midazolam HCl 100 ml @ 1 mls/hr Q24H IV 03/21/25 11:15 03/21/25 10:42 1 MLS/HR Fentanyl Citrate 250 ml @ 2.5 mls/hr Q24H IV 03/21/25 11:15 03/29/25 04:52 10 MLS/HR Atorvastatin Calcium 40 mg HS GT 03/21/25 22:00 03/28/25 21:46 40 MG Vancomycin HCl 0 ml @ 0 mls/hr PER PHARMACY IV 03/23/25 22:45 UNV Bumetanide 2.5 mg DAILY IV 03/24/25 10:00 03/29/25 11:12 2.5 MG Mupirocin 1 applic BID EACHNOSTRI 03/25/25 10:00 03/30/25 09:59 03/29/25 11:13 1 APPLIC Enteral Nutritional Formula 1,000 ml 40ML/HR GT 03/26/25 08:15 Sucralfate 1 gm TID@0600,1130,2200 GT 03/27/25 11:30 03/29/25 11:13 1 GM Pantoprazole Sodium 50 ml @ 10 mls/hr Q5H IV 03/27/25 14:30 03/29/25 08:42 10 MLS/HR Ceftriaxone Sodium 50 ml @ 100 mls/hr DAILY@09 IV 03/29/25 09:00 03/29/25 08:43 100 MLS/HR objective heent: nc/at, mmm lungs: Adequate air exchange cvs: no rub abd: soft, bowel sounds audible ext: trace edema laboratory and microbiology Laboratory Tests 03/29/25 02:50 Test 03/29/25 02:50 Range/Units Serum Glucose 93 74-106 mg/dL Assessment/Plan ROBERTO, on CKD 2, due to septic/cardiogenic shock-----> required acute Hd last 03/22 Acute respiratory failure intubated 03/21 Hyponatremia, likely due to advanced heart failure Septic shock, MRSA bacteremia Acute on chronic systolic heart failure NSTEMI AFib, with a RVR Hypertension Dyslipidemia Cirrhosis methamphetamine abuse Plan/recommendation: - efficacious response to diuretics - we will hold off on dialysis today, and evaluate daily for continued signs of renal recovery. Dietary Evaluation Review Comments: Nutrition Recommendation: 1) EN Nepro Carbsteady @ 45ml/hr x 24hr (goal) along with Pro-stat 1 pk BID. TF at goal volume along with Pro-stat provide 2144 kcal (100%), 118 gm protein (100%), and 785 ml free water. 2) Consider TPN/PN if NPO>7 days 3) Monitor NPO status, lab values, weight trend, and I/O Expected Outcomes/Goals: Intake to meet >75% estimated needs Lab values to improve FU 2-3 days Plan discussed with: Other CC Plasma Assessment Blood Product Administration S: [id number] MANUEL WELSH MD Mar 29, 2025 13:38
--- NOTE | 2025-03-29 14:10 | DVHPN2 ---
Progress Note - Dictate Date Seen: Mar 29, 2025 Medical Necessity Reason Pt with a Central, PICC or Fol: Yes The following are medically ne: Central Line (HD catheter), Olsen Catheter Subjective Patient seen in DU 262 , intubated sedated Remains in controlled atrial fibrillation/atrial flutter on cardiac Hemoglobin stable at 8.6. Patient is S/P 2 units FFP PT INR is normalized Vitamin K given Bleeding per orally and around the dialysis catheter has improved vital signs Vital Sign Date Time Temp Pulse Resp B/P (MAP) Pulse Ox O2 Delivery O2 Flow Rate FiO2 03/29/25 12:56 85 20 105/65 (78) 97 30 03/29/25 12:00 Mechanical Ventilator+ 03/29/25 08:00 98.3 98.3 03/27/25 22:30 30.0 Total Intake and Output 03/28/25 03/28/25 03/29/25 15:00 23:00 07:00 Intake Total 889.562 ml 1037.072 ml 574.072 ml Output Total 4050 ml 2450 ml Balance 889.562 ml -3012.928 ml -1875.928 ml medications Current Medications Medications Dose Ordered Sig/Zainab Route Start Time Stop Time Status Last Admin Dose Admin Ondansetron HCl 4 mg Q4HP PRN IV 03/18/25 19:15 Acetaminophen 650 mg Q6HP PRN PO 03/18/25 19:15 Nitroglycerin 0.4 mg Q5MINP PRN SL 03/18/25 19:15 Phenylephrine HCl 80 mg/Sodium Chloride 250 ml @ 7.5 mls/hr Q24H IV 03/19/25 09:15 03/29/25 06:25 7.5 MLS/HR Norepinephrine Bitartrate 32 mg/ Sodium Chloride 250 ml @ 0.938 mls/ hr Q24H IV 03/19/25 09:15 03/23/25 18:44 0.938 MLS/HR Vasopressin 20 units/Sodium Chloride 100 ml @ 9 mls/hr Q11H7M IV 03/19/25 09:15 Meropenem 50 ml @ 17 mls/hr DAILY IV 03/19/25 10:00 UNV Daptomycin / Sodium Chloride 50 ml @ 100 mls/hr DAILY IV 03/19/25 10:00 UNV Sodium Chloride 10 ml QSHIFT@10,22 IV 03/19/25 10:00 03/29/25 11:13 10 ML Linezolid 300 ml @ 150 mls/hr Q12HR IV 03/19/25 22:00 03/29/25 11:12 150 MLS/HR Propofol 100 ml @ 2.721 mls/ hr Q24H IV 03/21/25 11:15 03/29/25 08:46 16.326 MLS/HR Midazolam HCl 100 ml @ 1 mls/hr Q24H IV 03/21/25 11:15 03/21/25 10:42 1 MLS/HR Fentanyl Citrate 250 ml @ 2.5 mls/hr Q24H IV 03/21/25 11:15 03/29/25 04:52 10 MLS/HR Atorvastatin Calcium 40 mg HS GT 03/21/25 22:00 03/28/25 21:46 40 MG Vancomycin HCl 0 ml @ 0 mls/hr PER PHARMACY IV 03/23/25 22:45 UNV Bumetanide 2.5 mg DAILY IV 03/24/25 10:00 03/29/25 11:12 2.5 MG Mupirocin 1 applic BID EACHNOSTRI 03/25/25 10:00 03/30/25 09:59 03/29/25 11:13 1 APPLIC Enteral Nutritional Formula 1,000 ml 40ML/HR GT 03/26/25 08:15 Sucralfate 1 gm TID@0600,1130,2200 GT 03/27/25 11:30 03/29/25 11:13 1 GM Pantoprazole Sodium 50 ml @ 10 mls/hr Q5H IV 03/27/25 14:30 03/29/25 08:42 10 MLS/HR Ceftriaxone Sodium 50 ml @ 100 mls/hr DAILY@09 IV 03/29/25 09:00 03/29/25 08:43 100 MLS/HR objective Male patient frail-appearing, intubated and mechanically ventilated, RASS -1, responding to verbal and touch commands Dried in crusted blood around the mouth, ETT an NG-tube in place General: Well-built, afebrile, palor, mucosae are moist. Bleeding through right IJ catheter, mucosal membrane. Cardiovascular: Tachycardic and irregular S1 and S2. No murmurs, gallops or rubs. No JVD elevation. Pedal edema bilaterally Respiratory: Decreased breath sounds heard on auscultation, mechanically ventilated Abdomen: Soft, nontender, nondistended, normoactive bowel sounds, no rebound tenderness, no organomegaly, no masses Extremities shows areas of ecchymosis and bruising laboratory and microbiology Laboratory Tests 03/29/25 02:50 Test 03/29/25 02:50 Range/Units Serum Glucose 93 74-106 mg/dL Problems(with codes): (1) Coagulopathy (2) Anemia (3) Atrial fibrillation with RVR (4) Acute respiratory failure with hypoxia (5) Sepsis (6) CKD (chronic kidney disease) stage 4, GFR 15-29 ml/min Prognosis Plan Patient is responding well to diuretics No further need for hemodialysis Bleeding slowing down after getting 2 units of FFP Taper off the IV octreotide drip today Taper off IV Protonix drip tomorrow Maintained on Protonix 40 mg q.12 hours Monitor labs GI team will be standing by for signs of any active GI bleeding Dietary Evaluation Review Comments: Nutrition Recommendation: 1) EN Nepro Carbsteady @ 45ml/hr x 24hr (goal) along with Pro-stat 1 pk BID. TF at goal volume along with Pro-stat provide 2144 kcal (100%), 118 gm protein (100%), and 785 ml free water. 2) Consider TPN/PN if NPO>7 days 3) Monitor NPO status, lab values, weight trend, and I/O Expected Outcomes/Goals: Intake to meet >75% estimated needs Lab values to improve FU 2-3 days Plan discussed with: Other (ICU Nurse Declan) CC Plasma Assessment Blood Product Administration S: [id number] CHIVO GANDHI MD Mar 29, 2025 14:10
--- NOTE | 2025-03-29 14:55 | DVHPN2 ---
Progress Note - Dictate Date Seen: Mar 29, 2025 Medical Necessity Reason Pt with a Central, PICC or Fol: Yes The following are medically ne: Central Line (HD catheter), Olsen Catheter vital signs Vital Sign Date Time Temp Pulse Resp B/P (MAP) Pulse Ox O2 Delivery O2 Flow Rate FiO2 03/29/25 14:47 87 20 84/50 (61) 97 30 03/29/25 12:00 Mechanical Ventilator+ 03/29/25 08:00 98.3 98.3 03/27/25 22:30 30.0 Total Intake and Output 03/28/25 03/28/25 03/29/25 15:00 23:00 07:00 Intake Total 889.562 ml 1037.072 ml 574.072 ml Output Total 4050 ml 2450 ml Balance 889.562 ml -3012.928 ml -1875.928 ml medications Current Medications Medications Dose Ordered Sig/Zainab Route Start Time Stop Time Status Last Admin Dose Admin Ondansetron HCl 4 mg Q4HP PRN IV 03/18/25 19:15 Acetaminophen 650 mg Q6HP PRN PO 03/18/25 19:15 Nitroglycerin 0.4 mg Q5MINP PRN SL 03/18/25 19:15 Phenylephrine HCl 80 mg/Sodium Chloride 250 ml @ 7.5 mls/hr Q24H IV 03/19/25 09:15 03/29/25 06:25 7.5 MLS/HR Norepinephrine Bitartrate 32 mg/ Sodium Chloride 250 ml @ 0.938 mls/ hr Q24H IV 03/19/25 09:15 03/23/25 18:44 0.938 MLS/HR Vasopressin 20 units/Sodium Chloride 100 ml @ 9 mls/hr Q11H7M IV 03/19/25 09:15 Meropenem 50 ml @ 17 mls/hr DAILY IV 03/19/25 10:00 UNV Daptomycin / Sodium Chloride 50 ml @ 100 mls/hr DAILY IV 03/19/25 10:00 UNV Sodium Chloride 10 ml QSHIFT@10,22 IV 03/19/25 10:00 03/29/25 11:13 10 ML Linezolid 300 ml @ 150 mls/hr Q12HR IV 03/19/25 22:00 03/29/25 11:12 150 MLS/HR Propofol 100 ml @ 2.721 mls/ hr Q24H IV 03/21/25 11:15 03/29/25 08:46 16.326 MLS/HR Midazolam HCl 100 ml @ 1 mls/hr Q24H IV 03/21/25 11:15 03/21/25 10:42 1 MLS/HR Fentanyl Citrate 250 ml @ 2.5 mls/hr Q24H IV 03/21/25 11:15 03/29/25 04:52 10 MLS/HR Atorvastatin Calcium 40 mg HS GT 03/21/25 22:00 03/28/25 21:46 40 MG Vancomycin HCl 0 ml @ 0 mls/hr PER PHARMACY IV 03/23/25 22:45 UNV Bumetanide 2.5 mg DAILY IV 03/24/25 10:00 03/29/25 11:12 2.5 MG Mupirocin 1 applic BID EACHNOSTRI 03/25/25 10:00 03/30/25 09:59 03/29/25 11:13 1 APPLIC Enteral Nutritional Formula 1,000 ml 40ML/HR GT 03/26/25 08:15 Sucralfate 1 gm TID@0600,1130,2200 GT 03/27/25 11:30 03/29/25 11:13 1 GM Pantoprazole Sodium 50 ml @ 10 mls/hr Q5H IV 03/27/25 14:30 03/29/25 08:42 10 MLS/HR Ceftriaxone Sodium 50 ml @ 100 mls/hr DAILY@09 IV 03/29/25 09:00 03/29/25 08:43 100 MLS/HR laboratory and microbiology Laboratory Tests 03/29/25 02:50 Test 03/29/25 02:50 Range/Units Serum Glucose 93 74-106 mg/dL Assessment/Plan Impression Acute hypoxemic respiratory failure Hx of substance abuse Bacteremia ROBERTO Patient seen and examined in ICU Events On mechanical ventilation S/p intubation PEEP 5, FiO2 30% No signs of bleeding Labs and imaging reviewed ABG reviewed Management Vent support Titrate to maintain sats 90% or above Sedation for vent synchrony Continue antibiotics F/u cultures and ID Bronchodilators Monitor renal function Monitor electrolytes Supplement as needed Pressors as needed for hemodynamic support To maintain a mean arterial pressure of 65 mmHg Awaiting GELY F/u cardiology DVT prophylaxis Critical care time 35 minutes Dietary Evaluation Review Comments: Nutrition Recommendation: 1) EN Nepro Carbsteady @ 45ml/hr x 24hr (goal) along with Pro-stat 1 pk BID. TF at goal volume along with Pro-stat provide 2144 kcal (100%), 118 gm protein (100%), and 785 ml free water. 2) Consider TPN/PN if NPO>7 days 3) Monitor NPO status, lab values, weight trend, and I/O Expected Outcomes/Goals: Intake to meet >75% estimated needs Lab values to improve FU 2-3 days Plan discussed with: Other (Rn) CC Plasma Assessment Blood Product Administration S: [id number] JESSICA RAYMUNDO MD Mar 29, 2025 14:55
--- NOTE | 2025-03-29 17:30 | DVHPN2 ---
Consult Progress Note Subjective Other Systems: Patient in atrial fibrillation with controlled rate on cardiac exercise specialist. Patient remains chemically sedated and mechanically ventilated at time of assessment Objective vital signs Vital Sign Date Time Temp Pulse Resp B/P (MAP) Pulse Ox O2 Delivery O2 Flow Rate FiO2 03/29/25 16:30 80 20 98/63 (75) 99 03/29/25 16:20 30 03/29/25 16:00 Mechanical Ventilator+ 03/29/25 16:00 98.8 98.8 03/27/25 22:30 30.0 Total Intake and Output 03/28/25 03/28/25 03/29/25 15:00 23:00 07:00 Intake Total 889.562 ml 1037.072 ml 574.072 ml Output Total 4050 ml 2450 ml Balance 889.562 ml -3012.928 ml -1875.928 ml medications Current Medications Medications Dose Ordered Sig/Zainab Route Start Time Stop Time Status Last Admin Dose Admin Ondansetron HCl 4 mg Q4HP PRN IV 03/18/25 19:15 Acetaminophen 650 mg Q6HP PRN PO 03/18/25 19:15 Nitroglycerin 0.4 mg Q5MINP PRN SL 03/18/25 19:15 Phenylephrine HCl 80 mg/Sodium Chloride 250 ml @ 7.5 mls/hr Q24H IV 03/19/25 09:15 03/29/25 06:25 7.5 MLS/HR Norepinephrine Bitartrate 32 mg/ Sodium Chloride 250 ml @ 0.938 mls/ hr Q24H IV 03/19/25 09:15 03/23/25 18:44 0.938 MLS/HR Vasopressin 20 units/Sodium Chloride 100 ml @ 9 mls/hr Q11H7M IV 03/19/25 09:15 Meropenem 50 ml @ 17 mls/hr DAILY IV 03/19/25 10:00 UNV Daptomycin / Sodium Chloride 50 ml @ 100 mls/hr DAILY IV 03/19/25 10:00 UNV Sodium Chloride 10 ml QSHIFT@10,22 IV 03/19/25 10:00 03/29/25 11:13 10 ML Linezolid 300 ml @ 150 mls/hr Q12HR IV 03/19/25 22:00 03/29/25 11:12 150 MLS/HR Propofol 100 ml @ 2.721 mls/ hr Q24H IV 03/21/25 11:15 03/29/25 17:19 13.605 MLS/HR Midazolam HCl 100 ml @ 1 mls/hr Q24H IV 03/21/25 11:15 03/21/25 10:42 1 MLS/HR Fentanyl Citrate 250 ml @ 2.5 mls/hr Q24H IV 03/21/25 11:15 03/29/25 04:52 10 MLS/HR Atorvastatin Calcium 40 mg HS GT 03/21/25 22:00 03/28/25 21:46 40 MG Vancomycin HCl 0 ml @ 0 mls/hr PER PHARMACY IV 03/23/25 22:45 UNV Bumetanide 2.5 mg DAILY IV 03/24/25 10:00 03/29/25 11:12 2.5 MG Mupirocin 1 applic BID EACHNOSTRI 03/25/25 10:00 03/30/25 09:59 03/29/25 11:13 1 APPLIC Enteral Nutritional Formula 1,000 ml 40ML/HR GT 03/26/25 08:15 Sucralfate 1 gm TID@0600,1130,2200 GT 03/27/25 11:30 03/29/25 11:13 1 GM Pantoprazole Sodium 50 ml @ 10 mls/hr Q5H IV 03/27/25 14:30 03/29/25 15:09 10 MLS/HR Ceftriaxone Sodium 50 ml @ 100 mls/hr DAILY@09 IV 03/29/25 09:00 03/29/25 08:43 100 MLS/HR Examination: GENERAL:Abnormal, LUNGS:Abnormal (Mechanically ventilated), CVS:Abnormal (Atrial fibrillation with controlled rate), NEURO:Abnormal (Chemically sedated) laboratory and microbiology Laboratory Tests 03/29/25 02:50 Test 03/29/25 02:50 Range/Units Serum Glucose 93 74-106 mg/dL Problem List/Assessment/Plan Problem List/Assessment/Plan Acute on Chronic HFrEF, EF 15% (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 Washington) Plan: Transthoracic echocardiogram revealed LVEF 20% with severe global hypokinesis, biatrial and biventricular enlargement, aortic root enlargement, mild thickening of the mitral leaflets, mild mitral annular calcification, mild aortic sclerosis, diminished RV function, doming of the interventricular septum in systole and diastole consistent with a pressure in the volume overload/pulmonary hypertension. Initially scheduled for a transesophageal echocardiogram on 03/25/2025 to rule out subacute infective endocarditis. Given oral bleed, we will await for resolution and re-schedule GELY accordingly. 03/26/25: Patient experiencing oral bleeding overnight and at time of assessment. Oral suctioning reveals copious amounts of blood. 03/27/25: Patient still experiencing copious oral bleeding now with bleeding noted to right IJ site during hemodialysis. 03/28/25: Oral bleeding continues. Hemoglobin and platelet count trending down today. 03/29/25: Oral bleeding persists. GI team on board. Case discussed in detail with . In the meantime, discontinue Lovenox or any other AC/antiplatelet therapy given oral bleeding, thrombocytopenia, and downtrending hemoglobin. [id number] VASc score: 2 points, HAS-BLED score: 4 points. Continue SCDs in the meantime. Continue PPI. Hold antiarrhythmic therapy, as patient is allergic to amiodarone. Continue vasopressor for hemodynamic support. Initiate GDMT for CHF as renal function and hemodynamics permit. Continue Nephrology recommendations. DVT/VTE prophylaxis: SCDs. Given persistent oral bleeding, cardiology team we will hold off on transesophageal echocardiogram. Please reconsult Cardiology once platelets have normalized and patient is no longer experiencing oral bleeding. Thank you for allowing us to care for this patient. Critical care time: 30 min. This medical document was created using an electronic medical record system with voice recognition software and computerized dictation system. Although this document has been carefully reviewed, there might still be some phonetic and typographical errors. Occasional wrong-word or ``sound-alike substitutions may have occurred due to the inherent limitations of voice recognition software. These areas are purely typographical due to imperfections of the software programs and do not reflect any compromise in the patient's medical care. Please read the chart carefully and recognize, using context, where these substitutions have occurred. Plan discussed with: Other (Bedside RN Declan) Dietary Evaluation Review Comments: Nutrition Recommendation: 1) EN Nepro Carbsteady @ 45ml/hr x 24hr (goal) along with Pro-stat 1 pk BID. TF at goal volume along with Pro-stat provide 2144 kcal (100%), 118 gm protein (100%), and 785 ml free water. 2) Consider TPN/PN if NPO>7 days 3) Monitor NPO status, lab values, weight trend, and I/O Expected Outcomes/Goals: Intake to meet >75% estimated needs Lab values to improve FU 2-3 days CC Plasma Assessment Blood Product Administration S: [id number] Date of Service: Mar 29, 2025 Billing Provider: SANDEEP VALDEZ Common Visit Codes: [id number] CARE 30-74 MIN SANDEEP VALDEZ Mar 29, 2025 17:30
[2025-03-30] VITALS (104 sets, daily range): BP systolic 75–138; BP diastolic 47–90; PULSE 57–109; RESP 12–25; TEMP 97.5–98.5; O2SAT 94–100
--- NOTE | 2025-03-30 03:46 | DVH ---
CHEST RADIOGRAPH Indication: INTUBATED Technique: Single frontal view of the chest was obtained Comparison: XY CHEST PORTABLE on DOS: 03/28/25, XY CHEST PORTABLE on DOS: 03/27/25, XY CHEST PORTABLE on DOS: 03/26/25 IMPRESSION: The heart is prominent size. Endotracheal tube, enteric tube, and right IJ catheter, PICC line appear satisfactory position. Effusion increased opacity in the lung bases predominantly on the right appear similar. No pneumothorax. No significant interval change.
[2025-03-30 03:52] LABS: Hematocrit 28.5 % (41.0-53.0); Hemoglobin 9.0 g/dL (13.5-17.5); Mean Corpuscular Hemoglobin 23.5 pg (28.0-32.0); Nucleated Red Blood Cells % 0.0 %
[2025-03-30 03:54] LABS: Mean Corpuscular Volume 74.6 fL (80.0-100.0)
[2025-03-30 04:01] LABS: Chloride 92 mmol/L (98-107); Potassium 3.2 mmol/L (3.5-5.1); Sodium 140 mmol/L (136-145)
[2025-03-30 04:02] LABS: Anion Gap 15 (5-15)
[2025-03-30 04:06] LABS: Calcium 7.8 mg/dL (8.7-10.4); Carbon Dioxide 33 mmol/L (20-31)
[2025-03-30 04:07] LABS: BUN/Creatinine Ratio 22.3 (10.0-20.0)
[2025-03-30 04:25] LABS: Blood Urea Nitrogen 73 mg/dL (9-23); Glucose 129 mg/dL (74-106)
[2025-03-30] MEDS: POTASSIUM CHL 20MEQ/100ML 100 ML IV ONE (05:19)
[2025-03-30 07:32] LABS: Base Excess 6.9 mmol/L (-2.0-3.0)
--- NOTE | 2025-03-30 10:29 | DVHPN2 ---
Subjective Intubated and sedated Reviewed: Care Plan, H&P, Labs, Medications, Previous Orders Changes from previous H/P or p: No Changes General: Per HPI Objective Vitals Vital Signs Date Time Temp Pulse Resp B/P (MAP) Pulse Ox O2 Delivery O2 Flow Rate FiO2 03/30/25 10:00 30 03/30/25 09:21 70 20 104/64 (77) 96 03/30/25 08:00 Mechanical Ventilator+ 03/30/25 08:00 98.2 98.2 Intake/Output Intake and Output 03/30/25 07:00 Intake Total 2242.663 ml Output Total 4700 ml Balance -2457.337 ml Intake Oral 160 ml IV Total 1706.663 ml Tube Feeding 376 ml Output Urine Total 4700 ml # Bowel Movements 1 General Appearance: mild distress, Other (Intubated, on vent) HEENT: Atraumatic, PERRLA, Other (bleeding from oral mucosa) Lungs: Clear to auscultation, Normal air movement Cardiovascular: Normal S1, Normal S2 Abdomen: Normal bowel sounds, Soft, No tenderness, No hepatospenomegaly, No masses Genitourinary: No Apparent Abnormalities (Olsen catheter) Musculoskeletal: Other (Unable to assess) Neuro: Other (Unable to assess) Skin: Dry, Intact Psych/Mental Status: Other (Intubated, on vent, unable to exam) Medications Current Medications Medications Dose Ordered Sig/Zainab Route Start Time Stop Time Status Last Admin Dose Admin Ondansetron HCl 4 mg Q4HP PRN IV 03/18/25 19:15 Acetaminophen 650 mg Q6HP PRN PO 03/18/25 19:15 Nitroglycerin 0.4 mg Q5MINP PRN SL 03/18/25 19:15 Phenylephrine HCl 80 mg/Sodium Chloride 250 ml @ 7.5 mls/hr Q24H IV 03/19/25 09:15 03/30/25 09:16 12.188 MLS/HR Norepinephrine Bitartrate 32 mg/ Sodium Chloride 250 ml @ 0.938 mls/ hr Q24H IV 03/19/25 09:15 03/23/25 18:44 0.938 MLS/HR Vasopressin 20 units/Sodium Chloride 100 ml @ 9 mls/hr Q11H7M IV 03/19/25 09:15 Meropenem 50 ml @ 17 mls/hr DAILY IV 03/19/25 10:00 UNV Daptomycin / Sodium Chloride 50 ml @ 100 mls/hr DAILY IV 03/19/25 10:00 UNV Sodium Chloride 10 ml QSHIFT@10, IV 03/19/25 10:00 03/29/25 22:39 10 ML Linezolid 300 ml @ 150 mls/hr Q12HR IV 03/19/25 22:00 03/29/25 22:39 150 MLS/HR Propofol 100 ml @ 2.721 mls/ hr Q24H IV 03/21/25 11:15 03/30/25 05:18 13.605 MLS/HR Midazolam HCl 100 ml @ 1 mls/hr Q24H IV 03/21/25 11:15 03/21/25 10:42 1 MLS/HR Fentanyl Citrate 250 ml @ 2.5 mls/hr Q24H IV 03/21/25 11:15 03/30/25 03:06 10 MLS/HR Atorvastatin Calcium 40 mg HS GT 03/21/25 22:00 03/29/25 22:39 40 MG Vancomycin HCl 0 ml @ 0 mls/hr PER PHARMACY IV 03/23/25 22:45 UNV Bumetanide 2.5 mg DAILY IV 03/24/25 10:00 03/29/25 11:12 2.5 MG Enteral Nutritional Formula 1,000 ml 40ML/HR GT 03/26/25 08:15 Sucralfate 1 gm TID@0600,1130,2200 GT 03/27/25 11:30 03/30/25 05:18 1 GM Pantoprazole Sodium 50 ml @ 10 mls/hr Q5H IV 03/27/25 14:30 03/30/25 05:17 10 MLS/HR Ceftriaxone Sodium 50 ml @ 100 mls/hr DAILY@09 IV 03/29/25 09:00 03/30/25 09:13 100 MLS/HR Laboratory Results Laboratory Tests 03/30/25 03:00 Chemistry Test 03/30/25 03:00 Calcium Level 7.8 mg/dL (8.7-10.4) L Phosphorus Level Pending Urinalysis Test 03/21/25 00:00 03/21/25 03:10 Urine Color Dark-yellow (Yellow) Urine Clarity Turbid (Clear) H Urine pH 6.0 (5.0-9.0) Urine Specific [place] 1.014 (1.001-1.035) Urine Protein 2+ (Negative) H Urine Ketones Negative (Negative) Urine Blood 3+ /uL (Negative) H Urine Nitrite Negative (Negative) Urine Bilirubin 1+ (Negative) Urine Urobilinogen Normal mg/dL (Negative) Urine Leukocyte Esterase 2+ /uL (Negative) Urine RBC 896 /hpf (0 - 3) Urine Microscopic WBC 37 /HPF (0-3) H Urine Squamous Epithelial Cells Few /hpf (<5) Urine Bacteria None seen /hpf (None Seen) Urine Sperm Present /hpf (None Seen) Urine Glucose 1+ mg/dL (Normal) H Urine Creatinine 35.89 mg/dL (30.0-125.0) Urine Protein/Creatinine Ratio 30.21 Urine Sodium 95 mmol/L (40-220) Urine Total Protein 1084.4 mg/dL (1-14) H Blood Gas Results Test 03/30/25 06:58 Arterial Blood pH 7.475 (7.350-7.450) FiO2 % 30.0 Microbiology Microbiology Date/Time Source Procedure Growth Status 03/23/25 17:50 Blood Blood Culture - Final NO GROWTH AFTER 5 DAYS OF INCUBATION. Complete 03/21/25 11:31 Sputum Gram Stain - Final Complete 03/21/25 11:31 Respiratory Culture - Final Methicillin Resistant S.aureus Complete 03/21/25 02:30 Urine - Olsen Port Urine Culture - Final Complete 03/19/25 23:20 Nose MRSA Screen - Final Methicillin Resistant S.aureus Complete Labs and/or images reviewed: Labs reviewed by me, Image(s) reviewed by me Assessment/Plan Assessment/Plan Impression: -septic shock -acute hypoxic respiratory failure -acute on chronic systolic and diastolic heart failure -right pleural effusion -acute kidney injury -chronic kidney disease stage IIIB/four -PE ruled out -history of polysubstance abuse -thrombocytopenia -metabolic encephalopathy Plan: Events: Continues to be on phenylephrine drip. If no plans for HD given adequate urine output, DC Devante catheter. H&H stable. -stop Protonix drip. Change to Protonix 40 mg IV b.i.d. -nephrology consultation: HD per their discretion. Patient continues to be on Bumex IV push -continue vasopressor therapy -continue Zyvox -bronchodilators -PPI -continue current vent settings.-CPAP trial once appropriate -nephrology and cardiology consultation -repeat labs, chest x ray, abg,in a.m. Critical care time spent with patient discussing and formulating plan of care: 40 minutes. This does not include time spent performing procedures. This medical document was created using an electronic medical record system with [employer] dictation system. Although this document has been carefully reviewed, there may still be some phonetic and typographical errors. These areas are purely typographical due to imperfections of the software programs, and do not reflect any compromise in the patient's medical care. Plan discussed with: Patient, Other (RN) My Orders Orders - ANGELA VAUGHAN NP Procedure Category Date Status Time Abg W/ Co-Ox RT 03/30/25 Logged 06:00 Respiratory Misc. RT 03/30/25 Transmitted Order 09:54 Cpap/Sed Vacation Med ORDERS 03/30/25 Verified Weaning 10:23 Cpap Trial For Am ORDERS 03/30/25 Verified 10:23 Pantoprazole PHA 03/30/25 Verified (Protonix) 22:00 Complete Blood Count LAB 03/31/25 Verified 04:00 Basic Metabolic Panel LAB 03/31/25 Verified 04:00 Date of Service: Mar 30, 2025 Billing Provider: ANGELA VAUGHAN NP Common Visit Codes: [id number] CARE 30-74 MIN ANGELA VAUGHAN NP Mar 30, 2025 10:29
--- NOTE | 2025-03-30 14:16 | DVHPN2 ---
Progress Note Date Seen: Mar 30, 2025 Resident Creating Document: MARK COLEMAN RESIDENT Medical Necessity Reason Pt with a Central, PICC or Fol: Yes The following are medically ne: Central Line (HD catheter), Olsen Catheter Subjective Review of Systems Patient seen and examined at the bedside. Unable to obtain ROS due to patient's clinical status patient is currently Sedated and intubated. Changes from previous H/P or p: No Changes Other Systems: Patient seen and examined by myself today in follow-up with the medicine resident, I agree with the assessment and plan Objective vital signs Vital Sign Date Time Temp Pulse Resp B/P (MAP) Pulse Ox O2 Delivery O2 Flow Rate FiO2 03/30/25 13:24 69 20 112/77 (89) 98 30 03/30/25 12:00 Mechanical Ventilator+ 03/30/25 08:00 98.2 98.2 Total Intake and Output 03/29/25 03/29/25 03/30/25 15:00 23:00 07:00 Intake Total 724.278 ml 592.522 ml 961.656 ml Output Total 2250 ml 2450 ml Balance 724.278 ml -1657.478 ml -1488.344 ml medications Current Medications Medications Dose Ordered Sig/Zainab Route Start Time Stop Time Status Last Admin Dose Admin Ondansetron HCl 4 mg Q4HP PRN IV 03/18/25 19:15 Acetaminophen 650 mg Q6HP PRN PO 03/18/25 19:15 Nitroglycerin 0.4 mg Q5MINP PRN SL 03/18/25 19:15 Phenylephrine HCl 80 mg/Sodium Chloride 250 ml @ 7.5 mls/hr Q24H IV 03/19/25 09:15 03/30/25 09:16 12.188 MLS/HR Norepinephrine Bitartrate 32 mg/ Sodium Chloride 250 ml @ 0.938 mls/ hr Q24H IV 03/19/25 09:15 03/23/25 18:44 0.938 MLS/HR Vasopressin 20 units/Sodium Chloride 100 ml @ 9 mls/hr Q11H7M IV 03/19/25 09:15 Meropenem 50 ml @ 17 mls/hr DAILY IV 03/19/25 10:00 UNV Daptomycin / Sodium Chloride 50 ml @ 100 mls/hr DAILY IV 03/19/25 10:00 UNV Sodium Chloride 10 ml QSHIFT@10,22 IV 03/19/25 10:00 03/30/25 11:04 10 ML Linezolid 300 ml @ 150 mls/hr Q12HR IV 03/19/25 22:00 03/30/25 11:03 150 MLS/HR Propofol 100 ml @ 2.721 mls/ hr Q24H IV 03/21/25 11:15 03/30/25 05:18 13.605 MLS/HR Midazolam HCl 100 ml @ 1 mls/hr Q24H IV 03/21/25 11:15 03/21/25 10:42 1 MLS/HR Fentanyl Citrate 250 ml @ 2.5 mls/hr Q24H IV 03/21/25 11:15 03/30/25 03:06 10 MLS/HR Atorvastatin Calcium 40 mg HS GT 03/21/25 22:00 03/29/25 22:39 40 MG Vancomycin HCl 0 ml @ 0 mls/hr PER PHARMACY IV 03/23/25 22:45 UNV Enteral Nutritional Formula 1,000 ml 40ML/HR GT 03/26/25 08:15 Sucralfate 1 gm TID@0600,1130,2200 GT 03/27/25 11:30 03/30/25 11:17 1 GM Pantoprazole Sodium 40 mg BID IV 03/30/25 22:00 Cancel Pantoprazole Sodium 40 mg BID IV 03/30/25 22:00 Bumetanide 1 mg BIDD IV 03/30/25 18:00 Examination General Appearance: mild distress, Other (Intubated, on vent) HEENT: Atraumatic, PERRLA, Other (bleeding from oral mucosa) Lungs: Slightly diminished sounds Cardiovascular: Normal S1, Normal S2 Abdomen: Normal bowel sounds, Soft, No tenderness, No hepatosplenomegaly, No masses Genitourinary: Olsen catheter Musculoskeletal: 2+ pitting BLE Neuro: Unable to assess Skin: Dry, Intact laboratory and microbiology Laboratory Tests 03/30/25 03:00 Test 03/30/25 03:00 Range/Units Serum Glucose 129 H 74-106 mg/dL Microbiology Date/Time Source Procedure Growth Status 03/23/25 17:50 Blood Blood Culture - Final NO GROWTH AFTER 5 DAYS OF INCUBATION. Complete 03/21/25 11:31 Sputum Gram Stain - Final Complete 03/21/25 11:31 Respiratory Culture - Final Methicillin Resistant S.aureus Complete 03/21/25 02:30 Urine - Olsen Port Urine Culture - Final Complete 03/19/25 23:20 Nose MRSA Screen - Final Methicillin Resistant S.aureus Complete Labs and/or images reviewed: Labs reviewed by me, Image(s) reviewed by me Problem List/Assessment/Plan Problem List/Assessment/Plan ROBERTO, on CKD 2, due to septic/cardiogenic shock required acute Hd last 03/27 Acute respiratory failure intubated 03/21 Hyponatremia, likely due to advanced heart failure Septic shock, MRSA bacteremia Acute on chronic systolic heart failure NSTEMI AFib, with a RVR Hypertension Dyslipidemia Cirrhosis Methamphetamine abuse Hypokalemia Plan/recommendation: Kidney function slightly worsened today Increased urine output Strict I&Os Monitor urinary output ( 2450 mL over the night ) Continue Bumex 1 mg b.i.d Urine sodium Daily assess fluid status Pressor support as required No hemodialysis for now, may remove Devante if needed Rest of management as per primary team Case discussed with the Dr. Chapman Plan discussed with: Other (FAmily and RN) My Orders My Orders Orders - MARK COLEMAN Procedure Category Date Status Time Bumetanide Injection PHA 03/30/25 In Process (Bumex Injection) 18:00 Dietary Evaluation Review Comments: Nutrition Recommendation: 1) EN Nepro Carbsteady @ 45ml/hr x 24hr (goal) along with Pro-stat 1 pk BID. TF at goal volume along with Pro-stat provide 2144 kcal (100%), 118 gm protein (100%), and 785 ml free water. 2) Consider TPN/PN if NPO>7 days 3) Monitor NPO status, lab values, weight trend, and I/O Expected Outcomes/Goals: Intake to meet >75% estimated needs Lab values to improve FU 2-3 days CC Plasma Assessment Blood Product Administration S: [id number] MARK COLEMAN Mar 30, 2025 14:16 AUDI CHAPMAN MD Mar 30, 2025 14:44
--- NOTE | 2025-03-30 14:34 | DVHPN2 ---
Progress Note Date Seen: Mar 30, 2025 Resident Creating Document: DONNIE PEDRO RESIDENT Medical Necessity Reason Pt with a Central, PICC or Fol: Yes The following are medically ne: Central Line (HD catheter), Olsen Catheter Subjective Review of Systems 59-year-old male who is hospital stay has been complicated with AFib with RVR, sepsis secondary to pneumonia, MRSA bacteremia, ROBERTO requiring hemodialysis, HFrEF-EF 15%, liver cirrhosis and positive stool occult. GI consultation for positive stool occult blood. Recommend FFP X 2 units, vitamin K today and tomorrow, Protonix drip, octreotide for 48 hours. 03/30-patient seen and examined. One bowel movement overnight, black tarry. Patient will be scheduled for EGD tentatively tomorrow. Objective vital signs Vital Sign Date Time Temp Pulse Resp B/P (MAP) Pulse Ox O2 Delivery O2 Flow Rate FiO2 03/30/25 13:24 69 20 112/77 (89) 98 30 03/30/25 12:00 Mechanical Ventilator+ 03/30/25 08:00 98.2 98.2 Total Intake and Output 03/29/25 03/29/25 03/30/25 15:00 23:00 07:00 Intake Total 724.278 ml 592.522 ml 961.656 ml Output Total 2250 ml 2450 ml Balance 724.278 ml -1657.478 ml -1488.344 ml medications Current Medications Medications Dose Ordered Sig/Zainab Route Start Time Stop Time Status Last Admin Dose Admin Ondansetron HCl 4 mg Q4HP PRN IV 03/18/25 19:15 Acetaminophen 650 mg Q6HP PRN PO 03/18/25 19:15 Nitroglycerin 0.4 mg Q5MINP PRN SL 03/18/25 19:15 Phenylephrine HCl 80 mg/Sodium Chloride 250 ml @ 7.5 mls/hr Q24H IV 03/19/25 09:15 03/30/25 09:16 12.188 MLS/HR Norepinephrine Bitartrate 32 mg/ Sodium Chloride 250 ml @ 0.938 mls/ hr Q24H IV 03/19/25 09:15 03/23/25 18:44 0.938 MLS/HR Vasopressin 20 units/Sodium Chloride 100 ml @ 9 mls/hr Q11H7M IV 03/19/25 09:15 Meropenem 50 ml @ 17 mls/hr DAILY IV 03/19/25 10:00 UNV Daptomycin / Sodium Chloride 50 ml @ 100 mls/hr DAILY IV 03/19/25 10:00 UNV Sodium Chloride 10 ml QSHIFT@10,22 IV 03/19/25 10:00 03/30/25 11:04 10 ML Linezolid 300 ml @ 150 mls/hr Q12HR IV 03/19/25 22:00 03/30/25 11:03 150 MLS/HR Propofol 100 ml @ 2.721 mls/ hr Q24H IV 03/21/25 11:15 03/30/25 05:18 13.605 MLS/HR Midazolam HCl 100 ml @ 1 mls/hr Q24H IV 03/21/25 11:15 03/21/25 10:42 1 MLS/HR Fentanyl Citrate 250 ml @ 2.5 mls/hr Q24H IV 03/21/25 11:15 03/30/25 03:06 10 MLS/HR Atorvastatin Calcium 40 mg HS GT 03/21/25 22:00 03/29/25 22:39 40 MG Vancomycin HCl 0 ml @ 0 mls/hr PER PHARMACY IV 03/23/25 22:45 UNV Enteral Nutritional Formula 1,000 ml 40ML/HR GT 03/26/25 08:15 Sucralfate 1 gm TID@0600,1130,2200 GT 03/27/25 11:30 03/30/25 11:17 1 GM Pantoprazole Sodium 40 mg BID IV 03/30/25 22:00 Cancel Pantoprazole Sodium 40 mg BID IV 03/30/25 22:00 Bumetanide 1 mg BIDD IV 03/30/25 18:00 Examination Male patient frail-appearing, intubated and mechanically ventilated, RASS -1, responding to verbal and touch commands General: Well-built, afebrile, palor, mucosae are moist. Bleeding through right IJ catheter, mucosal membrane. Cardiovascular: Tachycardic and irregular S1 and S2. No murmurs, gallops or rubs. No JVD elevation. Pedal edema bilaterally Respiratory: Decreased breath sounds heard on auscultation, mechanically ventilated Abdomen: Soft, nontender, nondistended, normoactive bowel sounds, no rebound tenderness, no organomegaly, no masses Genitourinary: Deferred laboratory and microbiology Laboratory Tests 03/30/25 03:00 Test 03/30/25 03:00 Range/Units Serum Glucose 129 H 74-106 mg/dL Microbiology Date/Time Source Procedure Growth Status 03/23/25 17:50 Blood Blood Culture - Final NO GROWTH AFTER 5 DAYS OF INCUBATION. Complete 03/21/25 11:31 Sputum Gram Stain - Final Complete 03/21/25 11:31 Respiratory Culture - Final Methicillin Resistant S.aureus Complete 03/21/25 02:30 Urine - Olsen Port Urine Culture - Final Complete 03/19/25 23:20 Nose MRSA Screen - Final Methicillin Resistant S.aureus Complete Labs and/or images reviewed: Labs reviewed by me, Image(s) reviewed by me Problem List/Assessment/Plan Problem List/Assessment/Plan Alcoholic cirrhosis -meld score 27 Rule out GI bleed Anemia likely iron-deficiency versus chronic kidney disease Septic shock with MRSA bacteremia Acute hypoxic respiratory failure status post intubation Ascites Acute on chronic HFrEF exacerbation-EF 15-20% Acute kidney injury needing hemodialysis Atrial fibrillation with RVR Hypertension Plan: Recommendation: Given the alcoholic cirrhosis and positive stool occult, patient completed octreotide for 48 hours. Tapered off Protonix drip, Continue Protonix 40 mg IV b.i.d.. Patient will be scheduled for EGD tentatively 03/31. NPO after midnight. FFPx2 for mucosal bleeding. Vitamin K 10 mg X 1. Currently on dobutamine and neosyn Continue enteric feeding as tolerated Rest of management per primary team Thank you for consulting GI Plan discussed with the patient in which all questions been answered Case discussed with primary nurse, Dr. Painting Plan discussed with: Other (Nurse terrazas) My Orders My Orders Orders - DONNIE PEDRO RESIDENT Procedure Category Date Status Time Pantoprazole PHA 03/30/25 In Process (Protonix) 22:00 Dietary Evaluation Review Comments: Nutrition Recommendation: 1) EN Nepro Carbsteady @ 45ml/hr x 24hr (goal) along with Pro-stat 1 pk BID. TF at goal volume along with Pro-stat provide 2144 kcal (100%), 118 gm protein (100%), and 785 ml free water. 2) Consider TPN/PN if NPO>7 days 3) Monitor NPO status, lab values, weight trend, and I/O Expected Outcomes/Goals: Intake to meet >75% estimated needs Lab values to improve FU 2-3 days CC Plasma Assessment Blood Product Administration S: [id number] DONNIE PEDRO RESIDENT Mar 30, 2025 14:33
[2025-03-30] MEDS: POTASSIUM CHL 20MEQ/100ML 200 ML IV ONE (15:42)
[2025-03-30] MEDS: CALCIUM GLUC 1,000mg/50ml-NS 50 ML IV ONE (15:42)
--- NOTE | 2025-03-30 17:06 | DVHPN2 ---
Progress Note - Dictate Date Seen: Mar 30, 2025 Medical Necessity Reason Pt with a Central, PICC or Fol: No The following are medically ne: Central Line (HD catheter), Olsen Catheter vital signs Vital Sign Date Time Temp Pulse Resp B/P (MAP) Pulse Ox O2 Delivery O2 Flow Rate FiO2 03/30/25 16:00 30 03/30/25 16:00 20 98 Mechanical Ventilator+ 03/30/25 15:35 76 112/69 (83) 03/30/25 08:00 98.2 98.2 Total Intake and Output 03/29/25 03/29/25 03/30/25 15:00 23:00 07:00 Intake Total 724.278 ml 592.522 ml 961.656 ml Output Total 2250 ml 2450 ml Balance 724.278 ml -1657.478 ml -1488.344 ml medications Current Medications Medications Dose Ordered Sig/Zainab Route Start Time Stop Time Status Last Admin Dose Admin Ondansetron HCl 4 mg Q4HP PRN IV 03/18/25 19:15 Acetaminophen 650 mg Q6HP PRN PO 03/18/25 19:15 Nitroglycerin 0.4 mg Q5MINP PRN SL 03/18/25 19:15 Phenylephrine HCl 80 mg/Sodium Chloride 250 ml @ 7.5 mls/hr Q24H IV 03/19/25 09:15 03/30/25 09:16 12.188 MLS/HR Norepinephrine Bitartrate 32 mg/ Sodium Chloride 250 ml @ 0.938 mls/ hr Q24H IV 03/19/25 09:15 03/23/25 18:44 0.938 MLS/HR Vasopressin 20 units/Sodium Chloride 100 ml @ 9 mls/hr Q11H7M IV 03/19/25 09:15 Meropenem 50 ml @ 17 mls/hr DAILY IV 03/19/25 10:00 UNV Daptomycin / Sodium Chloride 50 ml @ 100 mls/hr DAILY IV 03/19/25 10:00 UNV Sodium Chloride 10 ml QSHIFT@,22 IV 03/19/25 10:00 03/30/25 11:04 10 ML Linezolid 300 ml @ 150 mls/hr Q12HR IV 03/19/25 22:00 03/30/25 11:03 150 MLS/HR Propofol 100 ml @ 2.721 mls/ hr Q24H IV 03/21/25 11:15 03/30/25 14:37 13.605 MLS/HR Midazolam HCl 100 ml @ 1 mls/hr Q24H IV 03/21/25 11:15 03/21/25 10:42 1 MLS/HR Fentanyl Citrate 250 ml @ 2.5 mls/hr Q24H IV 03/21/25 11:15 03/30/25 03:06 10 MLS/HR Atorvastatin Calcium 40 mg HS GT 03/21/25 22:00 03/29/25 22:39 40 MG Vancomycin HCl 0 ml @ 0 mls/hr PER PHARMACY IV 03/23/25 22:45 UNV Enteral Nutritional Formula 1,000 ml 40ML/HR GT 03/26/25 08:15 Sucralfate 1 gm TID@0600,1130,2200 GT 03/27/25 11:30 03/30/25 11:17 1 GM Pantoprazole Sodium 40 mg BID IV 03/30/25 22:00 Cancel Pantoprazole Sodium 40 mg BID IV 03/30/25 22:00 Bumetanide 1 mg BIDD IV 03/30/25 18:00 laboratory and microbiology Laboratory Tests 03/30/25 03:00 Test 03/30/25 03:00 Range/Units Serum Glucose 129 H 74-106 mg/dL Assessment/Plan Impression Acute hypoxemic respiratory failure Hx of substance abuse Bacteremia ROBERTO Patient seen and examined in ICU Events On mechanical ventilation S/p intubation PEEP 5, FiO2 30% No more bleeding Labs and imaging reviewed ABG reviewed Management Vent support Titrate to maintain sats 90% or above Sedation for vent synchrony Continue antibiotics rpt blood cx negative Bronchodilators Monitor renal function Monitor electrolytes Supplement as needed Pressors as needed for hemodynamic support To maintain a mean arterial pressure of 65 mmHg F/u cardiology DVT prophylaxis Critical care time 35 minutes Dietary Evaluation Review Comments: Nutrition Recommendation: 1) EN Nepro Carbsteady @ 45ml/hr x 24hr (goal) along with Pro-stat 1 pk BID. TF at goal volume along with Pro-stat provide 2144 kcal (100%), 118 gm protein (100%), and 785 ml free water. 2) Consider TPN/PN if NPO>7 days 3) Monitor NPO status, lab values, weight trend, and I/O Expected Outcomes/Goals: Intake to meet >75% estimated needs Lab values to improve FU 2-3 days Plan discussed with: Other (rn) CC Plasma Assessment Blood Product Administration S: [id number] JESSICA RAYMUNDO MD Mar 30, 2025 17:06
[2025-03-30] MEDS: BUMETANIDE 1mg/4ml VIAL (0.25mg/ml) IV SCH (18:50)
[2025-03-30] MEDS: PANTOPRAZOLE 40 MG/10 ML VIAL INJ IV SCH (21:50)
[2025-03-30] MEDS ORDERED: PANTOPRAZOLE 40 MG/10 ML VIAL INJ IV SCH (22:00)
[2025-03-31] VITALS (105 sets, daily range): BP systolic 80–124; BP diastolic 51–83; PULSE 71–126; RESP 13–27; TEMP 97.9–100.2; O2SAT 92–100
[2025-03-31 03:38] LABS: Hematocrit 31.1 % (41.0-53.0); Hemoglobin 9.9 g/dL (13.5-17.5); Mean Corpuscular Hemoglobin 23.6 pg (28.0-32.0); Mean Corpuscular Volume 74.3 fL (80.0-100.0); Nucleated Red Blood Cells % 0.0 %
[2025-03-31 03:47] LABS: Sodium 140 mmol/L (136-145)
[2025-03-31 03:48] LABS: Anion Gap 16 (5-15)
[2025-03-31 03:53] LABS: BUN/Creatinine Ratio 25.3 (10.0-20.0); Glucose 103 mg/dL (74-106)
[2025-03-31 03:54] LABS: Blood Urea Nitrogen 75 mg/dL (9-23); Calcium 7.8 mg/dL (8.7-10.4); Carbon Dioxide 35 mmol/L (20-31); Chloride 89 mmol/L (98-107); Potassium 2.8 mmol/L (3.5-5.1)
[2025-03-31] MEDS: POTASSIUM CHL 20MEQ/100ML 100 ML IV ONE (05:08)
[2025-03-31 07:41] LABS: Base Excess 8.6 mmol/L (-2.0-3.0)
[2025-03-31 08:01] LABS: INR 1.17 (0.9-1.15); Prothrombin Time 12.2 sec (9.3-11.8)
[2025-03-31] MEDS: POTASSIUM EFFERVESENT TAB 25 MEQ GT ONE (10:12)
[2025-03-31] MEDS: POTASSIUM CHL 20MEQ/100ML 100 ML IV SCH (10:12)
--- NOTE | 2025-03-31 10:45 | DVHPN2 ---
Subjective Intubated and sedated Reviewed: Care Plan, H&P, Labs, Medications, Previous Orders Changes from previous H/P or p: No Changes General: Per HPI Objective Vitals Vital Signs Date Time Temp Pulse Resp B/P (MAP) Pulse Ox O2 Delivery O2 Flow Rate FiO2 03/31/25 09:45 82 23 98/58 (71) 97 30 03/31/25 08:00 Mechanical Ventilator+ 03/31/25 04:00 98.2 98.2 Intake/Output Intake and Output 03/31/25 07:00 Intake Total 1837.109 ml Output Total 5125 ml Balance -3287.891 ml Intake Oral 90 ml IV Total 1170.109 ml Tube Feeding 577 ml Output Urine Total 5125 ml # Bowel Movements 1 General Appearance: mild distress, Other (Intubated, on vent) HEENT: Atraumatic, PERRLA, Other (bleeding from oral mucosa) Lungs: Clear to auscultation, Normal air movement Cardiovascular: Normal S1, Normal S2 Abdomen: Normal bowel sounds, Soft, No tenderness, No hepatospenomegaly, No masses Genitourinary: No Apparent Abnormalities (Olsen catheter) Musculoskeletal: Other (Unable to assess) Neuro: Other (Unable to assess) Skin: Dry, Intact Psych/Mental Status: Other (Intubated, on vent, unable to exam) Medications Current Medications Medications Dose Ordered Sig/Zainab Route Start Time Stop Time Status Last Admin Dose Admin Ondansetron HCl 4 mg Q4HP PRN IV 03/18/25 19:15 Acetaminophen 650 mg Q6HP PRN PO 03/18/25 19:15 Nitroglycerin 0.4 mg Q5MINP PRN SL 03/18/25 19:15 Phenylephrine HCl 80 mg/Sodium Chloride 250 ml @ 7.5 mls/hr Q24H IV 03/19/25 09:15 03/31/25 02:47 16.875 MLS/HR Norepinephrine Bitartrate 32 mg/ Sodium Chloride 250 ml @ 0.938 mls/ hr Q24H IV 03/19/25 09:15 03/23/25 18:44 0.938 MLS/HR Vasopressin 20 units/Sodium Chloride 100 ml @ 9 mls/hr Q11H7M IV 03/19/25 09:15 Meropenem 50 ml @ 17 mls/hr DAILY IV 03/19/25 10:00 UNV Daptomycin / Sodium Chloride 50 ml @ 100 mls/hr DAILY IV 03/19/25 10:00 UNV Sodium Chloride 10 ml QSHIFT@10,22 IV 03/19/25 10:00 03/31/25 10:01 10 ML Linezolid 300 ml @ 150 mls/hr Q12HR IV 03/19/25 22:00 03/31/25 10:01 150 MLS/HR Propofol 100 ml @ 2.721 mls/ hr Q24H IV 03/21/25 11:15 03/31/25 10:02 13.605 MLS/HR Midazolam HCl 100 ml @ 1 mls/hr Q24H IV 03/21/25 11:03/21/25 10:42 1 MLS/HR Fentanyl Citrate 250 ml @ 2.5 mls/hr Q24H IV 03/21/25 11:15 03/31/25 02:29 10 MLS/HR Atorvastatin Calcium 40 mg HS GT 03/21/25 22:00 03/30/25 21:50 40 MG Vancomycin HCl 0 ml @ 0 mls/hr PER PHARMACY IV 03/23/25 22:45 UNV Enteral Nutritional Formula 1,000 ml 40ML/HR GT 03/26/25 08:15 Sucralfate 1 gm TID@0600,1130,2200 GT 03/27/25 11:30 03/30/25 21:50 1 GM Pantoprazole Sodium 40 mg BID IV 03/30/25 22:00 Cancel Pantoprazole Sodium 40 mg BID IV 03/30/25 22:00 03/31/25 10:01 40 MG Bumetanide 1 mg BIDD IV 03/30/25 18:00 03/31/25 06:40 1 MG Potassium Chloride 100 ml @ 50 mls/hr Q2H IV 03/31/25 09:30 03/31/25 15:29 03/31/25 10:12 50 MLS/HR Laboratory Results Laboratory Tests 03/31/25 03:05 Chemistry Test 03/31/25 03:05 Calcium Level 7.8 mg/dL (8.7-10.4) L Magnesium Level Pending Coagulation Test 03/31/25 06:49 Prothrombin Time 12.2 sec (9.3-11.8) H Prothrombin Time INR 1.17 (0.9-1.15) H Urinalysis Test 03/21/25 00:00 03/21/25 03:10 Urine Color Dark-yellow (Yellow) Urine Clarity Turbid (Clear) H Urine pH 6.0 (5.0-9.0) Urine Specific [place] 1.014 (1.001-1.035) Urine Protein 2+ (Negative) H Urine Ketones Negative (Negative) Urine Blood 3+ /uL (Negative) H Urine Nitrite Negative (Negative) Urine Bilirubin 1+ (Negative) Urine Urobilinogen Normal mg/dL (Negative) Urine Leukocyte Esterase 2+ /uL (Negative) Urine RBC 896 /hpf (0 - 3) Urine Microscopic WBC 37 /HPF (0-3) H Urine Squamous Epithelial Cells Few /hpf (<5) Urine Bacteria None seen /hpf (None Seen) Urine Sperm Present /hpf (None Seen) Urine Glucose 1+ mg/dL (Normal) H Urine Creatinine 35.89 mg/dL (30.0-125.0) Urine Protein/Creatinine Ratio 30.21 Urine Sodium 95 mmol/L (40-220) Urine Total Protein 1084.4 mg/dL (1-14) H Blood Gas Results Test 03/31/25 07:30 Arterial Blood pH 7.528 (7.350-7.450) FiO2 % 30.0 Microbiology Microbiology Date/Time Source Procedure Growth Status 03/23/25 17:50 Blood Blood Culture - Final NO GROWTH AFTER 5 DAYS OF INCUBATION. Complete 03/21/25 11:31 Sputum Gram Stain - Final Complete 03/21/25 11:31 Respiratory Culture - Final Methicillin Resistant S.aureus Complete 03/21/25 02:30 Urine - Olsen Port Urine Culture - Final Complete 03/19/25 23:20 Nose MRSA Screen - Final Methicillin Resistant S.aureus Complete Labs and/or images reviewed: Labs reviewed by me, Image(s) reviewed by me Assessment/Plan Assessment/Plan Impression: -septic shock -acute hypoxic respiratory failure -acute on chronic systolic and diastolic heart failure -right pleural effusion -acute kidney injury -chronic kidney disease stage IIIB/four -PE ruled out -history of polysubstance abuse -thrombocytopenia -metabolic encephalopathy Plan: Events: H&H stable. Thrombocytopenia improving. Plans for EGD today. Hold CPAP trial. Patient may also undergo GELY after EGD if no varices are noted. -continue IV Protonix -nephrology consultation: HD per their discretion. Patient continues to be on Bumex IV push -continue vasopressor therapy -continue Zyvox -bronchodilators -PPI -continue current vent settings.-CPAP trial once appropriate -nephrology and cardiology consultation -repeat labs, chest x ray, abg,in a.m. Critical care time spent with patient discussing and formulating plan of care: 40 minutes. This does not include time spent performing procedures. This medical document was created using an electronic medical record system with [employer] dictation system. Although this document has been carefully reviewed, there may still be some phonetic and typographical errors. These areas are purely typographical due to imperfections of the software programs, and do not reflect any compromise in the patient's medical care. Plan discussed with: Patient, Other (RN) My Orders Orders - ANGELA VAUGHAN NP Procedure Category Date Status Time Communication Order ORDERS 03/31/25 Transmitted 09:25 Cpap Trial For Am ORDERS 03/31/25 Transmitted 09:25 Cpap/Sed Vacation Med ORDERS 03/31/25 Transmitted Weaning 09:25 Magnesium LAB 03/31/25 In Process 09:25 Basic Metabolic Panel LAB 04/01/25 Verified 04:00 Magnesium LAB 04/01/25 Verified 04:00 Complete Blood Count LAB 04/01/25 Verified 04:00 PTPTT LAB 04/01/25 Verified 04:00 Date of Service: Mar 31, 2025 Billing Provider: ANGELA VAUGHAN NP Common Visit Codes: [id number] CARE 30-74 MIN ANGELA VAUGHAN NP Mar 31, 2025 10:45
--- NOTE | 2025-03-31 14:22 | DVHPN2 ---
Progress Note Date Seen: Mar 31, 2025 Resident Creating Document: MARK COLEMAN RESIDENT Medical Necessity Reason Pt with a Central, PICC or Fol: No The following are medically ne: Central Line (HD catheter), Olsen Catheter Subjective Review of Systems Patient seen and examined at the bedside. Unable to obtain ROS due to patient's clinical status patient is currently Sedated and intubated. Other Systems: Patient seen and examined by myself today on rounds with the medicine resident, I agree with the assessment Objective vital signs Vital Sign Date Time Temp Pulse Resp B/P (MAP) Pulse Ox O2 Delivery O2 Flow Rate FiO2 03/31/25 13:29 83 22 104/71 (82) 97 30 03/31/25 12:00 Mechanical Ventilator+ 03/31/25 08:00 97.9 97.9 Total Intake and Output 03/30/25 03/30/25 03/31/25 15:00 23:00 07:00 Intake Total 574.156 ml 604.593 ml 658.360 ml Output Total 2550 ml 2575 ml Balance 574.156 ml -1945.407 ml -1916.640 ml medications Current Medications Medications Dose Ordered Sig/Zainab Route Start Time Stop Time Status Last Admin Dose Admin Ondansetron HCl 4 mg Q4HP PRN IV 03/18/25 19:15 Acetaminophen 650 mg Q6HP PRN PO 03/18/25 19:15 Nitroglycerin 0.4 mg Q5MINP PRN SL 03/18/25 19:15 Phenylephrine HCl 80 mg/Sodium Chloride 250 ml @ 7.5 mls/hr Q24H IV 03/19/25 09:15 03/31/25 02:47 16.875 MLS/HR Norepinephrine Bitartrate 32 mg/ Sodium Chloride 250 ml @ 0.938 mls/ hr Q24H IV 03/19/25 09:15 03/23/25 18:44 0.938 MLS/HR Vasopressin 20 units/Sodium Chloride 100 ml @ 9 mls/hr Q11H7M IV 03/19/25 09:15 Meropenem 50 ml @ 17 mls/hr DAILY IV 03/19/25 10:00 UNV Daptomycin / Sodium Chloride 50 ml @ 100 mls/hr DAILY IV 03/19/25 10:00 UNV Sodium Chloride 10 ml QSHIFT@ IV 03/19/25 10:00 03/31/25 10:01 10 ML Linezolid 300 ml @ 150 mls/hr Q12HR IV 03/19/25 22:00 03/31/25 10:01 150 MLS/HR Propofol 100 ml @ 2.721 mls/ hr Q24H IV 03/21/25 11:15 03/31/25 10:02 13.605 MLS/HR Midazolam HCl 100 ml @ 1 mls/hr Q24H IV 03/21/25 11:15 03/21/25 10:42 1 MLS/HR Fentanyl Citrate 250 ml @ 2.5 mls/hr Q24H IV 03/21/25 11:15 03/31/25 02:29 10 MLS/HR Atorvastatin Calcium 40 mg HS GT 03/21/25 22:00 03/30/25 21:50 40 MG Vancomycin HCl 0 ml @ 0 mls/hr PER PHARMACY IV 03/23/25 22:45 UNV Enteral Nutritional Formula 1,000 ml 40ML/HR GT 03/26/25 08:15 Sucralfate 1 gm TID@0600,1130,2200 GT 03/27/25 11:30 03/30/25 21:50 1 GM Pantoprazole Sodium 40 mg BID IV 03/30/25 22:00 Cancel Pantoprazole Sodium 40 mg BID IV 03/30/25 22:00 03/31/25 10:01 40 MG Bumetanide 1 mg BIDD IV 03/30/25 18:00 03/31/25 06:40 1 MG Potassium Chloride 100 ml @ 50 mls/hr Q2H IV 03/31/25 09:30 03/31/25 15:29 03/31/25 12:06 50 MLS/HR Diltiazem HCl 125 ml @ 5 mls/hr Q24H IV 03/31/25 12:30 03/31/25 13:07 5 MLS/HR Examination General Appearance: mild distress, Other (Intubated, on vent) HEENT: Atraumatic, PERRLA, Other (bleeding from oral mucosa) Lungs: Slightly diminished sounds Cardiovascular: Normal S1, Normal S2 Abdomen: Normal bowel sounds, Soft, No tenderness, No hepatosplenomegaly, No masses Genitourinary: Olsen catheter Musculoskeletal: 2+ pitting BLE Neuro: Unable to assess Skin: Dry, Intact Examination: LUNGS:Normal ( plan), CVS:Normal, MSK:Abnormal laboratory and microbiology Laboratory Tests 03/31/25 03:05 Test 03/31/25 03:05 Range/Units Serum Glucose 103 74-106 mg/dL Microbiology Date/Time Source Procedure Growth Status 03/23/25 17:50 Blood Blood Culture - Final NO GROWTH AFTER 5 DAYS OF INCUBATION. Complete 03/21/25 11:31 Sputum Gram Stain - Final Complete 03/21/25 11:31 Respiratory Culture - Final Methicillin Resistant S.aureus Complete 03/21/25 02:30 Urine - Olsen Port Urine Culture - Final Complete 03/19/25 23:20 Nose MRSA Screen - Final Methicillin Resistant S.aureus Complete Labs and/or images reviewed: Labs reviewed by me, Image(s) reviewed by me Problem List/Assessment/Plan Problem List/Assessment/Plan ROBERTO, on CKD 2, due to septic/cardiogenic shock required acute Hd last 03/27- improving Acute respiratory failure intubated 03/21 Hyponatremia, likely due to advanced heart failure- improved Septic shock, MRSA bacteremia Acute on chronic systolic heart failure NSTEMI AFib, with a RVR Hypertension Dyslipidemia Cirrhosis Methamphetamine abuse Hypokalemia Plan/recommendation: Kidney function slightly improved today Increased urine output Strict I&Os Continue Bumex 1 mg b.i.d Daily assess fluid status Pressor support as required No hemodialysis for now, may remove Devante if needed Rest of management as per primary team Case discussed with the Dr. Chapman Plan discussed with: Other (RN) Dietary Evaluation Review Comments: Nutrition Recommendation: 1) EN Nepro Carbsteady @ 45ml/hr x 24hr (goal) along with Pro-stat 1 pk BID. TF at goal volume along with Pro-stat provide 2144 kcal (100%), 118 gm protein (100%), and 785 ml free water. 2) Consider TPN/PN if NPO>7 days 3) Monitor NPO status, lab values, weight trend, and I/O Expected Outcomes/Goals: Intake to meet >75% estimated needs Lab values to improve FU 2-3 days CC Plasma Assessment Blood Product Administration S: [id number] MARK COLEMAN Mar 31, 2025 14:22 AUDI CHAPMAN MD Mar 31, 2025 14:25
[2025-03-31] MEDS: NOREPINEPHRINE 8 MG/250ML KIT 250 ML IV ONE (15:58)
--- NOTE | 2025-03-31 16:57 | DVHOP2 ---
Operative Report DATE OF OPERATION: 03/31/25 PROCEDURE: Upper Endoscopy with biopsy. PREOPERATIVE INDICATION: The patient is a 59 -year-old male undergoing endoscopy for suspected upper GI bleed rule out varices POSTOPERATIVE DIAGNOSES: 1. Patient appeared to have traumatic injury to his lips and mouth causing some bleeding and encrusted old blood 2. Patient had a 1-2 cm sliding-type hiatal hernia with grade B to C erosive esophagitis with some distal linear esophageal ulcers from which biopsies were obtained, there were no esophageal varices 3. Mild antral gastritis and moderate duodenitis of the duodenal bulb with hyperemia erythema superficial excoriations 4. Otherwise normal examination up to the 2nd and 3rd part of the duodenal with good bile drainage and no fresh or old blood in the upper GI tract PROCEDURE PERFORMED BY: [employer] Painting GI NURSE: Deanne SCOPE: Olympus videoendoscope. ASA CLASS: 3. PREOPERATIVE MEDICATIONS: Patient was intubated sedated PROCEDURE IN DETAIL: After obtaining an informed consent, the patient was placed on left lateral decubitus position. The patient was then sedated with the above medications. A bite block was placed between his teeth. The endoscope was then passed through the oropharynx, into the esophagus, and through the stomach and pylorus up to the second and third part of the duodenum. The endoscope was then withdrawn. The 2nd and 3rd part of the duodenal, duodenal bulb and postbulbar area showed [id number] duodenitis with hyperemia erythema superficial excoriations Duodenal biopsies were obtained. The pre-pyloric area antrum and body showed mild gastritis. Gastric biopsies were obtained. On retroflexion the fundus and cardia were normal in the angularis was normal No fresh or old blood was seen in the upper GI tract. The endoscope was then withdrawn into the distal esophagus. Patient had a 1-2 cm sliding-type hiatal hernia with the acute erosive esophagitis Linear esophageal ulcers with standing into the distal 5-10 cm of the esophagus from which biopsies were obtained. There were no varices. The proximal esophagus and oropharynx were unremarkable Patient appeared to have dried blood around his mouth and the gum line and some of it was cleared with oral hygiene The patient tolerated the procedure well without difficulty. COMPLICATIONS : None SPECIMENS: Duodenal biopsy Gastric biopsy Esophageal biopsies DISPOSITION: Stable Continue to monitor in RUGGIERO PLAN: 1. Await for biopsy result 2. Will place pt on Protonix 40 mg bid IV 3. Carafate suspension 1 g 4 times a day 4. Patient may be started on enteral tube feedings if required and if he failed CPAP trial 5. Patient may proceed with a GELY as per Cardiology consult the patient is stabilized CHIVO PAINTING MD Mar 31, 2025 16:57
--- NOTE | 2025-03-31 17:36 | DVHPN2 ---
Progress Note - Dictate Date Seen: Mar 31, 2025 Medical Necessity Reason Pt with a Central, PICC or Fol: No The following are medically ne: Central Line (HD catheter), Olsen Catheter vital signs Vital Sign Date Time Temp Pulse Resp B/P (MAP) Pulse Ox O2 Delivery O2 Flow Rate FiO2 03/31/25 16:15 89 20 91/67 (75) 98 30 03/31/25 12:00 Mechanical Ventilator+ 03/31/25 08:00 97.9 97.9 Total Intake and Output 03/30/25 03/30/25 03/31/25 15:00 23:00 07:00 Intake Total 574.156 ml 604.593 ml 658.360 ml Output Total 2550 ml 2575 ml Balance 574.156 ml -1945.407 ml -1916.640 ml medications Current Medications Medications Dose Ordered Sig/Zainab Route Start Time Stop Time Status Last Admin Dose Admin Ondansetron HCl 4 mg Q4HP PRN IV 03/18/25 19:15 Acetaminophen 650 mg Q6HP PRN PO 03/18/25 19:15 Nitroglycerin 0.4 mg Q5MINP PRN SL 03/18/25 19:15 Phenylephrine HCl 80 mg/Sodium Chloride 250 ml @ 7.5 mls/hr Q24H IV 03/19/25 09:15 03/31/25 02:47 16.875 MLS/HR Norepinephrine Bitartrate 32 mg/ Sodium Chloride 250 ml @ 0.938 mls/ hr Q24H IV 03/19/25 09:15 03/23/25 18:44 0.938 MLS/HR Vasopressin 20 units/Sodium Chloride 100 ml @ 9 mls/hr Q11H7M IV 03/19/25 09:15 Meropenem 50 ml @ 17 mls/hr DAILY IV 03/19/25 10:00 UNV Daptomycin / Sodium Chloride 50 ml @ 100 mls/hr DAILY IV 03/19/25 10:00 UNV Sodium Chloride 10 ml QSHIFT@ IV 03/19/25 10:00 03/31/25 10:01 10 ML Linezolid 300 ml @ 150 mls/hr Q12HR IV 03/19/25 22:00 03/31/25 10:01 150 MLS/HR Propofol 100 ml @ 2.721 mls/ hr Q24H IV 03/21/25 11:15 03/31/25 10:02 13.605 MLS/HR Midazolam HCl 100 ml @ 1 mls/hr Q24H IV 03/21/25 11:15 03/21/25 10:42 1 MLS/HR Fentanyl Citrate 250 ml @ 2.5 mls/hr Q24H IV 03/21/25 11:15 03/31/25 02:29 10 MLS/HR Atorvastatin Calcium 40 mg HS GT 03/21/25 22:00 03/30/25 21:50 40 MG Vancomycin HCl 0 ml @ 0 mls/hr PER PHARMACY IV 03/23/25 22:45 UNV Enteral Nutritional Formula 1,000 ml 40ML/HR GT 03/26/25 08:15 Sucralfate 1 gm TID@0600,1130,2200 GT 03/27/25 11:30 03/30/25 21:50 1 GM Pantoprazole Sodium 40 mg BID IV 03/30/25 22:00 Cancel Pantoprazole Sodium 40 mg BID IV 03/30/25 22:00 03/31/25 10:01 40 MG Bumetanide 1 mg BIDD IV 03/30/25 18:00 03/31/25 06:40 1 MG Diltiazem HCl 125 ml @ 5 mls/hr Q24H IV 03/31/25 12:30 03/31/25 13:07 5 MLS/HR laboratory and microbiology Laboratory Tests 03/31/25 03:05 Test 03/31/25 03:05 Range/Units Serum Glucose 103 74-106 mg/dL Assessment/Plan Impression Acute hypoxemic respiratory failure Hx of substance abuse Bacteremia ROBERTO Patient seen and examined in ICU Events On mechanical ventilation S/p intubation PEEP 5, FiO2 30% Patient scheduled for endoscopy Labs and imaging reviewed ABG reviewed Management Vent support Titrate to maintain sats 90% or above Sedation for vent synchrony Continue antibiotic Bronchodilators Monitor renal function Monitor electrolytes Supplement as needed Pressors as needed for hemodynamic support To maintain a mean arterial pressure of 65 mmHg F/u cardiology F/u GI DVT prophylaxis Critical care time 35 minutes Dietary Evaluation Review Comments: Nutrition Recommendation: 1) EN Nepro Carbsteady @ 45ml/hr x 24hr (goal) along with Pro-stat 1 pk BID. TF at goal volume along with Pro-stat provide 2144 kcal (100%), 118 gm protein (100%), and 785 ml free water. 2) Consider TPN/PN if NPO>7 days 3) Monitor NPO status, lab values, weight trend, and I/O Expected Outcomes/Goals: Intake to meet >75% estimated needs Lab values to improve FU 2-3 days Plan discussed with: Other (Rn) CC Plasma Assessment Blood Product Administration S: [id number] JESSICA RAYMUNDO MD Mar 31, 2025 17:36
[2025-03-31] MEDS: Nepro With Carb Steady 1 Liter Bottle GT SCH (20:56)
[2025-04-01] VITALS (111 sets, daily range): BP systolic 77–124; BP diastolic 45–75; PULSE 18–113; RESP 12–32; TEMP 98.3–100.1; O2SAT 88–100
[2025-04-01 04:09] LABS: Sodium 140 mmol/L (136-145)
[2025-04-01 04:10] LABS: Anion Gap 18 (5-15)
[2025-04-01 04:14] LABS: Hematocrit 28.8 % (41.0-53.0); Hemoglobin 9.2 g/dL (13.5-17.5); Mean Corpuscular Hemoglobin 24.1 pg (28.0-32.0); Mean Corpuscular Volume 75.1 fL (80.0-100.0); Nucleated Red Blood Cells % 0.1 %
[2025-04-01 04:15] LABS: BUN/Creatinine Ratio 28.6 (10.0-20.0); Glucose 105 mg/dL (74-106); INR 1.3 (0.9-1.15); Partial Thromboplastin Time 31.7 SEC (24.5-34.5); Prothrombin Time 13.4 sec (9.3-11.8)
[2025-04-01 04:18] LABS: Blood Urea Nitrogen 82 mg/dL (9-23); Calcium 7.4 mg/dL (8.7-10.4); Carbon Dioxide 31 mmol/L (20-31); Chloride 91 mmol/L (98-107); Magnesium 1.5 mg/dL (1.6-2.6); Potassium 3.4 mmol/L (3.5-5.1)
[2025-04-01] MEDS: POTASSIUM CHL 20MEQ/100ML 100 ML IV ONE (05:34)
--- NOTE | 2025-04-01 08:07 | ECG ---
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
[2025-04-01 08:37] LABS: Base Excess 5.6 mmol/L (-2.0-3.0)
[2025-04-01] MEDS: MAGNESIUM SULFATE 1GM/100ML 100 ML IV SCH (08:41)
--- NOTE | 2025-04-01 09:49 | DVHPN2 ---
Subjective Intubated and sedated Reviewed: Care Plan, H&P, Labs, Medications, Previous Orders Changes from previous H/P or p: No Changes General: Per HPI Objective Vitals Vital Signs Date Time Temp Pulse Resp B/P (MAP) Pulse Ox O2 Delivery O2 Flow Rate FiO2 04/01/25 08:00 30 04/01/25 07:52 104 18 113/66 (82) 94 04/01/25 06:00 Mechanical Ventilator+ 04/01/25 04:00 99.3 99.3 Intake/Output Intake and Output 04/01/25 07:00 Intake Total 2976.581 ml Output Total 2700 ml Balance 276.581 ml Intake Oral 100 ml IV Total 2439.581 ml Tube Feeding 437 ml Output Urine Total 2700 ml # Bowel Movements 1 General Appearance: mild distress, Other (Intubated, on vent) HEENT: Atraumatic, PERRLA, Other (bleeding from oral mucosa) Lungs: Clear to auscultation, Normal air movement, Other (Mechanical ventilation) Cardiovascular: Normal S1, Normal S2 Abdomen: Normal bowel sounds, Soft, No tenderness, No hepatospenomegaly, No masses Genitourinary: No Apparent Abnormalities (Olsen catheter) Musculoskeletal: Other (Unable to assess) Neuro: Other (Unable to assess) Skin: Dry, Intact Psych/Mental Status: Other (Intubated, on vent, unable to exam) Medications Current Medications Medications Dose Ordered Sig/Zainab Route Start Time Stop Time Status Last Admin Dose Admin Ondansetron HCl 4 mg Q4HP PRN IV 03/18/25 19:15 Acetaminophen 650 mg Q6HP PRN PO 03/18/25 19:15 Nitroglycerin 0.4 mg Q5MINP PRN SL 03/18/25 19:15 Phenylephrine HCl 80 mg/Sodium Chloride 250 ml @ 7.5 mls/hr Q24H IV 03/19/25 09:15 04/01/25 05:34 33.75 MLS/HR Norepinephrine Bitartrate 32 mg/ Sodium Chloride 250 ml @ 0.938 mls/ hr Q24H IV 03/19/25 09:15 03/23/25 18:44 0.938 MLS/HR Vasopressin 20 units/Sodium Chloride 100 ml @ 9 mls/hr Q11H7M IV 03/19/25 09:15 04/01/25 02:44 9 MLS/HR Meropenem 50 ml @ 17 mls/hr DAILY IV 03/19/25 10:00 UNV Daptomycin / Sodium Chloride 50 ml @ 100 mls/hr DAILY IV 03/19/25 10:00 UNV Sodium Chloride 10 ml QSHIFT@10,22 IV 03/19/25 10:00 03/31/25 20:57 10 ML Linezolid 300 ml @ 150 mls/hr Q12HR IV 03/19/25 22:00 03/31/25 20:57 150 MLS/HR Propofol 100 ml @ 2.721 mls/ hr Q24H IV 03/21/25 11:15 03/31/25 23:35 13.605 MLS/HR Midazolam HCl 100 ml @ 1 mls/hr Q24H IV 03/21/25 11:15 03/21/25 10:42 1 MLS/HR Fentanyl Citrate 250 ml @ 2.5 mls/hr Q24H IV 03/21/25 11:15 03/31/25 22:05 12.5 MLS/HR Atorvastatin Calcium 40 mg HS GT 03/21/25 22:00 03/31/25 20:56 40 MG Vancomycin HCl 0 ml @ 0 mls/hr PER PHARMACY IV 03/23/25 22:45 UNV Enteral Nutritional Formula 1,000 ml 40ML/HR GT 03/26/25 08:15 03/31/25 20:56 1,000 ML Sucralfate 1 gm TID@0600,1130,2200 GT 03/27/25 11:30 04/01/25 05:19 1 GM Pantoprazole Sodium 40 mg BID IV 03/30/25 22:00 Cancel Pantoprazole Sodium 40 mg BID IV 03/30/25 22:00 03/31/25 20:56 40 MG Bumetanide 1 mg BIDD IV 03/30/25 18:00 04/01/25 05:19 1 MG Diltiazem HCl 125 ml @ 5 mls/hr Q24H IV 03/31/25 12:30 03/31/25 13:07 5 MLS/HR Levofloxacin 50 ml @ 50 mls/hr DAILY@0900 IV 04/02/25 09:00 Laboratory Results Laboratory Tests 04/01/25 03:19 Chemistry Test 04/01/25 03:19 Calcium Level 7.4 mg/dL (8.7-10.4) L Magnesium Level 1.5 mg/dL (1.6-2.6) L Coagulation Test 04/01/25 03:19 Prothrombin Time 13.4 sec (9.3-11.8) H Prothrombin Time INR 1.30 (0.9-1.15) H Activated Partial Thromboplast Time 31.7 SEC (24.5-34.5) Urinalysis Test 03/21/25 00:00 03/21/25 03:10 Urine Color Dark-yellow (Yellow) Urine Clarity Turbid (Clear) H Urine pH 6.0 (5.0-9.0) Urine Specific [place] 1.014 (1.001-1.035) Urine Protein 2+ (Negative) H Urine Ketones Negative (Negative) Urine Blood 3+ /uL (Negative) H Urine Nitrite Negative (Negative) Urine Bilirubin 1+ (Negative) Urine Urobilinogen Normal mg/dL (Negative) Urine Leukocyte Esterase 2+ /uL (Negative) Urine RBC 896 /hpf (0 - 3) Urine Microscopic WBC 37 /HPF (0-3) H Urine Squamous Epithelial Cells Few /hpf (<5) Urine Bacteria None seen /hpf (None Seen) Urine Sperm Present /hpf (None Seen) Urine Glucose 1+ mg/dL (Normal) H Urine Creatinine 35.89 mg/dL (30.0-125.0) Urine Protein/Creatinine Ratio 30.21 Urine Sodium 95 mmol/L (40-220) Urine Total Protein 1084.4 mg/dL (1-14) H Blood Gas Results Test 04/01/25 06:28 Arterial Blood pH 7.524 (7.350-7.450) FiO2 % 30.0 Microbiology Microbiology Date/Time Source Procedure Growth Status 03/23/25 17:50 Blood Blood Culture - Final NO GROWTH AFTER 5 DAYS OF INCUBATION. Complete 03/21/25 11:31 Sputum Gram Stain - Final Complete 03/21/25 11:31 Respiratory Culture - Final Methicillin Resistant S.aureus Complete 03/21/25 02:30 Urine - Olsen Port Urine Culture - Final Complete 03/19/25 23:20 Nose MRSA Screen - Final Methicillin Resistant S.aureus Complete Labs and/or images reviewed: Labs reviewed by me, Image(s) reviewed by me Assessment/Plan Assessment/Plan Impression: -septic shock -acute hypoxic respiratory failure -acute on chronic systolic and diastolic heart failure -right pleural effusion -acute kidney injury -chronic kidney disease stage IIIB/four -PE ruled out -history of polysubstance abuse -thrombocytopenia -metabolic encephalopathy Plan: Events: H&H stable. EGD performed yesterday. No signs of active bleeding. No signs of esophageal varices. Worsening leukocytosis with shock. -repeat gomez cultures -continue IV Protonix -nephrology consultation: HD per their discretion. Patient continues to be on Bumex IV push -continue vasopressor therapy -continue Zyvox, add Levaquin -bronchodilators -PPI -continue current vent settings CPAP trial daily. -nephrology and cardiology consultation -repeat labs, chest x ray, abg,in a.m. Critical care time spent with patient discussing and formulating plan of care: 40 minutes. This does not include time spent performing procedures. This medical document was created using an electronic medical record system with [employer] dictation system. Although this document has been carefully reviewed, there may still be some phonetic and typographical errors. These areas are purely typographical due to imperfections of the software programs, and do not reflect any compromise in the patient's medical care. Plan discussed with: Patient, Other (RN) My Orders Orders - ANGELA VAUGHAN NP Procedure Category Date Status Time Diltiazem 125mg/125ml PHA 03/31/25 In Process Bag Kit (Cardizem) 12:30 Abg W/ Co-Ox RT 04/01/25 Logged 06:00 * Wound Consult CONS 04/01/25 Transmitted Blood Culture VISH 04/01/25 Logged 08:18 Respiratory Culture VISH 04/01/25 Logged W/ Gs 08:18 Urine Bacterial VISH 04/01/25 Logged Culture 08:18 Levofloxacin 500mg PHA 04/01/25 In Process (Levaquin 500mg/ 100m 09:03 Levofloxacin 250mg PHA 04/02/25 In Process (Levaquin 250mg) 09:00 Abg W/ Co-Ox RT 04/01/25 Logged 09:41 Basic Metabolic Panel LAB 04/02/25 Verified 04:00 Chest Portable XY 04/02/25 Verified 04:00 Abg W/ Co-Ox RT 04/02/25 Verified 04:00 Complete Blood Count LAB 04/02/25 Verified 04:00 Date of Service: Apr 01, 2025 Billing Provider: ANGELA VAUGHAN NP Common Visit Codes: 92000-[id number] CARE 30-74 MIN ANGELA VAUGHAN NP Apr 01, 2025 09:49
[2025-04-01 10:05] LABS: Base Excess 5.0 mmol/L (-2.0-3.0)
--- NOTE | 2025-04-01 13:34 | DVHPN2 ---
Progress Note Date Seen: Apr 01, 2025 Resident Creating Document: MARK COLEMAN RESIDENT Medical Necessity Reason Pt with a Central, PICC or Fol: No The following are medically ne: Central Line (HD catheter), Olsen Catheter Subjective Review of Systems Patient seen and examined at the bedside. Unable to obtain ROS due to patient's clinical status patient is currently Sedated and intubated. Review of Systems: RESPIRATORY:Abnormal Other Systems: Patient seen and examined by myself today on rounds with the medicine resident, I agree with the assessment and plan Objective vital signs Vital Sign Date Time Temp Pulse Resp B/P (MAP) Pulse Ox O2 Delivery O2 Flow Rate FiO2 04/01/25 12:30 96 26 111/73 (86) 97 04/01/25 12:00 30 04/01/25 12:00 100.1 100.1 04/01/25 12:00 Mechanical Ventilator+ Total Intake and Output 03/31/25 03/31/25 04/01/25 15:00 23:00 07:00 Intake Total 935.236 ml 1018.840 ml 1022.505 ml Output Total 1900 ml 800 ml Balance 935.236 ml -881.160 ml 222.505 ml medications Current Medications Medications Dose Ordered Sig/Zainab Route Start Time Stop Time Status Last Admin Dose Admin Ondansetron HCl 4 mg Q4HP PRN IV 03/18/25 19:15 Acetaminophen 650 mg Q6HP PRN PO 03/18/25 19:15 Nitroglycerin 0.4 mg Q5MINP PRN SL 03/18/25 19:15 Phenylephrine HCl 80 mg/Sodium Chloride 250 ml @ 7.5 mls/hr Q24H IV 03/19/25 09:15 04/01/25 11:21 33.75 MLS/HR Norepinephrine Bitartrate 32 mg/ Sodium Chloride 250 ml @ 0.938 mls/ hr Q24H IV 03/19/25 09:15 03/23/25 18:44 0.938 MLS/HR Vasopressin 20 units/Sodium Chloride 100 ml @ 9 mls/hr Q11H7M IV 03/19/25 09:15 04/01/25 11:19 9 MLS/HR Meropenem 50 ml @ 17 mls/hr DAILY IV 03/19/25 10:00 UNV Daptomycin / Sodium Chloride 50 ml @ 100 mls/hr DAILY IV 03/19/25 10:00 UNV Sodium Chloride 10 ml QSHIFT@10,22 IV 03/19/25 10:00 04/01/25 10:09 10 ML Linezolid 300 ml @ 150 mls/hr Q12HR IV 03/19/25 22:00 04/01/25 11:55 150 MLS/HR Propofol 100 ml @ 2.721 mls/ hr Q24H IV 03/21/25 11:15 04/01/25 12:27 13.605 MLS/HR Midazolam HCl 100 ml @ 1 mls/hr Q24H IV 03/21/25 11:15 03/21/25 10:42 1 MLS/HR Fentanyl Citrate 250 ml @ 2.5 mls/hr Q24H IV 03/21/25 11:15 03/31/25 22:05 12.5 MLS/HR Atorvastatin Calcium 40 mg HS GT 03/21/25 22:00 03/31/25 20:56 40 MG Vancomycin HCl 0 ml @ 0 mls/hr PER PHARMACY IV 03/23/25 22:45 UNV Enteral Nutritional Formula 1,000 ml 40ML/HR GT 03/26/25 08:15 03/31/25 20:56 1,000 ML Sucralfate 1 gm TID@0600,1130,2200 GT 03/27/25 11:30 04/01/25 11:54 1 GM Pantoprazole Sodium 40 mg BID IV 03/30/25 22:00 Cancel Pantoprazole Sodium 40 mg BID IV 03/30/25 22:00 04/01/25 10:08 40 MG Bumetanide 1 mg BIDD IV 03/30/25 18:00 04/01/25 05:19 1 MG Diltiazem HCl 125 ml @ 5 mls/hr Q24H IV 03/31/25 12:30 04/01/25 10:03 5 MLS/HR Levofloxacin 50 ml @ 50 mls/hr DAILY@0900 IV 04/02/25 09:00 Examination General Appearance: mild distress, Other (Intubated, on vent) HEENT: Atraumatic, PERRLA, Other (bleeding from oral mucosa) Lungs: Slightly diminished sounds Cardiovascular: Normal S1, Normal S2 Abdomen: Normal bowel sounds, Soft, No tenderness, No hepatosplenomegaly, No masses Genitourinary: Olsen catheter Musculoskeletal: 2+ pitting BLE Neuro: Unable to assess Skin: Dry, Intact laboratory and microbiology Laboratory Tests 04/01/25 03:19 Test 04/01/25 03:19 Range/Units Serum Glucose 105 74-106 mg/dL Microbiology Date/Time Source Procedure Growth Status 03/23/25 17:50 Blood Blood Culture - Final NO GROWTH AFTER 5 DAYS OF INCUBATION. Complete 03/21/25 11:31 Sputum Gram Stain - Final Complete 03/21/25 11:31 Respiratory Culture - Final Methicillin Resistant S.aureus Complete 03/21/25 02:30 Urine - Olsen Port Urine Culture - Final Complete 03/19/25 23:20 Nose MRSA Screen - Final Methicillin Resistant S.aureus Complete Problem List/Assessment/Plan Problem List/Assessment/Plan ROBERTO, on CKD 2, due to septic/cardiogenic shock required acute Hd last 03/27- improving Acute respiratory failure intubated 03/21 Hyponatremia, likely due to advanced heart failure- improved Septic shock, MRSA bacteremia Acute on chronic systolic heart failure NSTEMI AFib, with a RVR Hypertension Dyslipidemia Cirrhosis Methamphetamine abuse Hypokalemia Plan/recommendation: Kidney function slightly improved today slightly decreased urine output Strict I&Os Continue Bumex 1 mg b.i.d KCL replacement Daily assess fluid status Pressor support as required No hemodialysis Rest of management as per primary team Case discussed with the Dr. Chapman Plan discussed with: Other (rn) Dietary Evaluation Review Comments: Nutrition Recommendation: 1) EN Nepro Carbsteady @ 45ml/hr x 24hr (goal) along with Pro-stat 1 pk BID. TF at goal volume along with Pro-stat provide 2144 kcal (100%), 118 gm protein (100%), and 785 ml free water. 2) Consider TPN/PN if NPO>7 days 3) Monitor NPO status, lab values, weight trend, and I/O Expected Outcomes/Goals: Intake to meet >75% estimated needs Lab values to improve FU 2-3 days CC Plasma Assessment Blood Product Administration S: [id number] MARK OCLEMAN Apr 01, 2025 13:34 AUDI CHAPMAN MD Apr 01, 2025 14:08
--- NOTE | 2025-04-01 13:45 | DVHPN2 ---
Progress Note Date Seen: Apr 01, 2025 Resident Creating Document: DONNIE PEDRO RESIDENT Medical Necessity Reason Pt with a Central, PICC or Fol: No The following are medically ne: Central Line (HD catheter), Olsen Catheter Subjective Review of Systems 59-year-old male who is hospital stay has been complicated with AFib with RVR, sepsis secondary to pneumonia, MRSA bacteremia, ROBERTO requiring hemodialysis, HFrEF-EF 15%, liver cirrhosis and positive stool occult. GI consultation for positive stool occult blood. Recommend FFP X 2 units, vitamin K today and tomorrow, Protonix drip, octreotide for 48 hours. Patient seen and examined. T-max 100.2 F. CPAP trial today. WBC increased to 21. H&H stable. Objective vital signs Vital Sign Date Time Temp Pulse Resp B/P (MAP) Pulse Ox O2 Delivery O2 Flow Rate FiO2 04/01/25 12:30 96 26 111/73 (86) 97 04/01/25 12:00 30 04/01/25 12:00 100.1 100.1 04/01/25 12:00 Mechanical Ventilator+ Total Intake and Output 03/31/25 03/31/25 04/01/25 15:00 23:00 07:00 Intake Total 935.236 ml 1018.840 ml 1022.505 ml Output Total 1900 ml 800 ml Balance 935.236 ml -881.160 ml 222.505 ml medications Current Medications Medications Dose Ordered Sig/Zainab Route Start Time Stop Time Status Last Admin Dose Admin Ondansetron HCl 4 mg Q4HP PRN IV 03/18/25 19:15 Acetaminophen 650 mg Q6HP PRN PO 03/18/25 19:15 Nitroglycerin 0.4 mg Q5MINP PRN SL 03/18/25 19:15 Phenylephrine HCl 80 mg/Sodium Chloride 250 ml @ 7.5 mls/hr Q24H IV 03/19/25 09:15 04/01/25 11:21 33.75 MLS/HR Norepinephrine Bitartrate 32 mg/ Sodium Chloride 250 ml @ 0.938 mls/ hr Q24H IV 03/19/25 09:15 03/23/25 18:44 0.938 MLS/HR Vasopressin 20 units/Sodium Chloride 100 ml @ 9 mls/hr Q11H7M IV 03/19/25 09:15 04/01/25 11:19 9 MLS/HR Meropenem 50 ml @ 17 mls/hr DAILY IV 03/19/25 10:00 UNV Daptomycin / Sodium Chloride 50 ml @ 100 mls/hr DAILY IV 03/19/25 10:00 UNV Sodium Chloride 10 ml QSHIFT@10,22 IV 03/19/25 10:00 04/01/25 10:09 10 ML Linezolid 300 ml @ 150 mls/hr Q12HR IV 03/19/25 22:00 04/01/25 11:55 150 MLS/HR Propofol 100 ml @ 2.721 mls/ hr Q24H IV 03/21/25 11:15 04/01/25 12:27 13.605 MLS/HR Midazolam HCl 100 ml @ 1 mls/hr Q24H IV 03/21/25 11:15 03/21/25 10:42 1 MLS/HR Fentanyl Citrate 250 ml @ 2.5 mls/hr Q24H IV 03/21/25 11:15 03/31/25 22:05 12.5 MLS/HR Atorvastatin Calcium 40 mg HS GT 03/21/25 22:00 03/31/25 20:56 40 MG Vancomycin HCl 0 ml @ 0 mls/hr PER PHARMACY IV 03/23/25 22:45 UNV Enteral Nutritional Formula 1,000 ml 40ML/HR GT 03/26/25 08:15 03/31/25 20:56 1,000 ML Sucralfate 1 gm TID@0600,1130,2200 GT 03/27/25 11:30 04/01/25 11:54 1 GM Pantoprazole Sodium 40 mg BID IV 03/30/25 22:00 Cancel Pantoprazole Sodium 40 mg BID IV 03/30/25 22:00 04/01/25 10:08 40 MG Bumetanide 1 mg BIDD IV 03/30/25 18:00 04/01/25 05:19 1 MG Diltiazem HCl 125 ml @ 5 mls/hr Q24H IV 03/31/25 12:30 04/01/25 10:03 5 MLS/HR Levofloxacin 50 ml @ 50 mls/hr DAILY@0900 IV 04/02/25 09:00 Examination Male patient frail-appearing, intubated and mechanically ventilated, RASS -1, responding to verbal and touch commands General: Well-built, afebrile, palor, mucosae are moist. Bleeding through right IJ catheter, mucosal membrane. Cardiovascular: Tachycardic and irregular S1 and S2. No murmurs, gallops or rubs. No JVD elevation. Pedal edema bilaterally Respiratory: Decreased breath sounds heard on auscultation, mechanically ventilated Abdomen: Soft, nontender, nondistended, normoactive bowel sounds, no rebound tenderness, no organomegaly, no masses Genitourinary: Deferred laboratory and microbiology Laboratory Tests 04/01/25 03:19 Test 04/01/25 03:19 Range/Units Serum Glucose 105 74-106 mg/dL Microbiology Date/Time Source Procedure Growth Status 03/23/25 17:50 Blood Blood Culture - Final NO GROWTH AFTER 5 DAYS OF INCUBATION. Complete 03/21/25 11:31 Sputum Gram Stain - Final Complete 03/21/25 11:31 Respiratory Culture - Final Methicillin Resistant S.aureus Complete 03/21/25 02:30 Urine - Olsen Port Urine Culture - Final Complete 03/19/25 23:20 Nose MRSA Screen - Final Methicillin Resistant S.aureus Complete Labs and/or images reviewed: Labs reviewed by me, Image(s) reviewed by me Problem List/Assessment/Plan Problem List/Assessment/Plan Alcoholic cirrhosis -meld score 27 Ruled out GI bleed at this time Ruled out esophageal varices Anemia likely iron-deficiency versus chronic kidney disease Septic shock with MRSA bacteremia Acute hypoxic respiratory failure status post intubation Ascites Acute on chronic HFrEF exacerbation-EF 15-20% Acute kidney injury needing hemodialysis Atrial fibrillation with RVR Hypertension Plan: Recommendation: Patient underwent upper EGD 03/31 which showed traumatic injury to his lips and mouth, 1-2 cm sliding-type hiatal hernia with grade B to C erosive esophagitis with distal linear esophageal ulcers. Mild antral gastritis , moderate duodenitis we will hyperemia. Continue Protonix 40 mg IV b.i.d., Carafate suspension 1 g 4 times a day Recommend enteral feeding May proceed with GELY as per Cardiology Follow up with biopsy results Rest of management per primary team Recommend discontinuing diltiazem drip given EF 20% Thank you for consulting GI Plan discussed with the patient in which all questions been answered Case discussed with primary nurse, Dr. Painting Plan discussed with: Other (Nurse) Dietary Evaluation Review Comments: Nutrition Recommendation: 1) EN Nepro Carbsteady @ 45ml/hr x 24hr (goal) along with Pro-stat 1 pk BID. TF at goal volume along with Pro-stat provide 2144 kcal (100%), 118 gm protein (100%), and 785 ml free water. 2) Consider TPN/PN if NPO>7 days 3) Monitor NPO status, lab values, weight trend, and I/O Expected Outcomes/Goals: Intake to meet >75% estimated needs Lab values to improve FU 2-3 days CC Plasma Assessment Blood Product Administration S: [id number] DONNIE PEDRO RESIDENT Apr 01, 2025 13:45
[2025-04-01] MEDS: SODIUM CHLORIDE 0.9% 500 ML IV ONE (15:47)
--- NOTE | 2025-04-01 17:21 | DVHPN2 ---
Progress Note - Dictate Date Seen: Apr 01, 2025 Medical Necessity Reason Pt with a Central, PICC or Fol: No The following are medically ne: Central Line (HD catheter), Olsen Catheter vital signs Vital Sign Date Time Temp Pulse Resp B/P (MAP) Pulse Ox O2 Delivery O2 Flow Rate FiO2 04/01/25 16:01 82 23 106/60 (75) 97 30 04/01/25 14:00 Mechanical Ventilator+ 04/01/25 14:00 99.3 99.3 Total Intake and Output 03/31/25 03/31/25 04/01/25 15:00 23:00 07:00 Intake Total 935.236 ml 1018.840 ml 1022.505 ml Output Total 1900 ml 800 ml Balance 935.236 ml -881.160 ml 222.505 ml medications Current Medications Medications Dose Ordered Sig/Zainab Route Start Time Stop Time Status Last Admin Dose Admin Ondansetron HCl 4 mg Q4HP PRN IV 03/18/25 19:15 Acetaminophen 650 mg Q6HP PRN PO 03/18/25 19:15 Nitroglycerin 0.4 mg Q5MINP PRN SL 03/18/25 19:15 Phenylephrine HCl 80 mg/Sodium Chloride 250 ml @ 7.5 mls/hr Q24H IV 03/19/25 09:15 04/01/25 11:21 33.75 MLS/HR Norepinephrine Bitartrate 32 mg/ Sodium Chloride 250 ml @ 0.938 mls/ hr Q24H IV 03/19/25 09:15 03/23/25 18:44 0.938 MLS/HR Vasopressin 20 units/Sodium Chloride 100 ml @ 9 mls/hr Q11H7M IV 03/19/25 09:15 04/01/25 11:19 9 MLS/HR Meropenem 50 ml @ 17 mls/hr DAILY IV 03/19/25 10:00 UNV Daptomycin / Sodium Chloride 50 ml @ 100 mls/hr DAILY IV 03/19/25 10:00 UNV Sodium Chloride 10 ml QSHIFT@10,22 IV 03/19/25 10:00 04/01/25 10:09 10 ML Linezolid 300 ml @ 150 mls/hr Q12HR IV 03/19/25 22:00 04/01/25 11:55 150 MLS/HR Propofol 100 ml @ 2.721 mls/ hr Q24H IV 03/21/25 11:15 04/01/25 12:27 13.605 MLS/HR Midazolam HCl 100 ml @ 1 mls/hr Q24H IV 03/21/25 11:15 03/21/25 10:42 1 MLS/HR Fentanyl Citrate 250 ml @ 2.5 mls/hr Q24H IV 03/21/25 11:15 03/31/25 22:05 12.5 MLS/HR Atorvastatin Calcium 40 mg HS GT 03/21/25 22:00 03/31/25 20:56 40 MG Vancomycin HCl 0 ml @ 0 mls/hr PER PHARMACY IV 03/23/25 22:45 UNV Enteral Nutritional Formula 1,000 ml 40ML/HR GT 03/26/25 08:15 03/31/25 20:56 1,000 ML Sucralfate 1 gm TID@0600,1130,2200 GT 03/27/25 11:30 04/01/25 11:54 1 GM Pantoprazole Sodium 40 mg BID IV 03/30/25 22:00 Cancel Pantoprazole Sodium 40 mg BID IV 03/30/25 22:00 04/01/25 10:08 40 MG Bumetanide 1 mg BIDD IV 03/30/25 18:00 04/01/25 05:19 1 MG Diltiazem HCl 125 ml @ 5 mls/hr Q24H IV 03/31/25 12:30 04/01/25 10:03 5 MLS/HR Levofloxacin 50 ml @ 50 mls/hr DAILY@0900 IV 04/02/25 09:00 laboratory and microbiology Laboratory Tests 04/01/25 03:19 Test 04/01/25 03:19 Range/Units Serum Glucose 105 74-106 mg/dL Assessment/Plan Impression Acute hypoxemic respiratory failure Hx of substance abuse Bacteremia ROBERTO Patient seen and examined in ICU Events On mechanical ventilation S/p intubation PEEP 5, FiO2 30% On 2 pressors for hemodynamic support Labs and imaging reviewed ABG reviewed Management Vent support Titrate to maintain sats 90% or above Sedation holiday in AM If patient follows commands, proceed to weaning trial Pressure support /5, extubate when ready Continue antibiotic Bronchodilators Monitor renal function Monitor electrolytes Supplement as needed Pressors as needed for hemodynamic support To maintain a mean arterial pressure of 65 mmHg F/u cardiology F/u GI DVT prophylaxis Critical care time 35 minutes Dietary Evaluation Review Comments: Nutrition Recommendation: 1) EN Nepro Carbsteady @ 45ml/hr x 24hr (goal) along with Pro-stat 1 pk BID. TF at goal volume along with Pro-stat provide 2144 kcal (100%), 118 gm protein (100%), and 785 ml free water. 2) Consider TPN/PN if NPO>7 days 3) Monitor NPO status, lab values, weight trend, and I/O Expected Outcomes/Goals: Intake to meet >75% estimated needs Lab values to improve FU 2-3 days Plan discussed with: Other (Rn) CC Plasma Assessment Blood Product Administration S: [id number] JESSICA RAYMUNDO MD Apr 01, 2025 17:21
[2025-04-02] VITALS (90 sets, daily range): BP systolic 79–108; BP diastolic 41–72; PULSE 32–97; RESP 16–32; TEMP 96.7–98.9; O2SAT 49–100
[2025-04-02 02:49] LABS: Anion Gap 20 (5-15); Carbon Dioxide 26 mmol/L (20-31); Potassium 4.2 mmol/L (3.5-5.1); Sodium 137 mmol/L (136-145)
[2025-04-02 02:55] LABS: BUN/Creatinine Ratio 27.6 (10.0-20.0); Hematocrit 24.6 % (41.0-53.0); Hemoglobin 7.7 g/dL (13.5-17.5); Mean Corpuscular Hemoglobin 23.6 pg (28.0-32.0); Mean Corpuscular Volume 75.9 fL (80.0-100.0)
[2025-04-02 03:18] LABS: Calcium 7.1 mg/dL (8.7-10.4); Chloride 91 mmol/L (98-107); Glucose 121 mg/dL (74-106)
[2025-04-02 03:20] LABS: Blood Urea Nitrogen 96 mg/dL (9-23)
[2025-04-02 04:48] LABS: Total Cells Counted 100.0 (100)
[2025-04-02 04:49] LABS: Anisocytosis Slight
--- NOTE | 2025-04-02 06:10 | DVH ---
CHEST RADIOGRAPH Indication: pna Technique: Single frontal view of the chest was obtained COMPARISON: XY CHEST PORTABLE on DOS: 03/30/25, XY CHEST PORTABLE on DOS: 03/28/25, XY CHEST PORTABLE on DOS: 03/27/25, XY CHEST PORTABLE on DOS: 03/26/25, XY CHEST PORTABLE on DOS: 03/25/25 FINDINGS: Lines and Tubes: Endotracheal tube, enteric catheter in satisfactory position. Lungs: Pulmonary vascular congestion. Pleura: Small right pleural effusion. No pneumothorax. Cardiomediastinal contours: Cardiomegaly. Bones: Unremarkable IMPRESSION: Cardiomegaly and pulmonary vascular congestion. Small right pleural effusion.
[2025-04-02 07:48] LABS: Base Excess -5.9 mmol/L (-2.0-3.0)
--- NOTE | 2025-04-02 10:38 | DVHPN2 ---
Progress Note Date Seen: Apr 02, 2025 Medical Necessity Reason Pt with a Central, PICC or Fol: No The following are medically ne: Central Line (HD catheter), Olsen Catheter Subjective Review of Systems: Deferred Objective vital signs Vital Sign Date Time Temp Pulse Resp B/P (MAP) Pulse Ox O2 Delivery O2 Flow Rate FiO2 04/02/25 10:03 97/55 04/02/25 10:02 70 26 100 30 04/02/25 06:00 Mechanical Ventilator+ 04/02/25 04:00 97.8 97.8 Total Intake and Output 04/01/25 04/01/25 04/02/25 15:00 23:00 07:00 Intake Total 774.50 ml 917.225 ml 694.216 ml Output Total 175 ml 38 ml Balance 774.50 ml 742.225 ml 656.216 ml medications Current Medications Medications Dose Ordered Sig/Zainab Route Start Time Stop Time Status Last Admin Dose Admin Ondansetron HCl 4 mg Q4HP PRN IV 03/18/25 19:15 Acetaminophen 650 mg Q6HP PRN PO 03/18/25 19:15 Nitroglycerin 0.4 mg Q5MINP PRN SL 03/18/25 19:15 Phenylephrine HCl 80 mg/Sodium Chloride 250 ml @ 7.5 mls/hr Q24H IV 03/19/25 09:15 04/02/25 09:40 33.75 MLS/HR Norepinephrine Bitartrate 32 mg/ Sodium Chloride 250 ml @ 0.938 mls/ hr Q24H IV 03/19/25 09:15 04/02/25 04:25 0.938 MLS/HR Vasopressin 20 units/Sodium Chloride 100 ml @ 9 mls/hr Q11H7M IV 03/19/25 09:15 04/02/25 10:03 9 MLS/HR Meropenem 50 ml @ 17 mls/hr DAILY IV 03/19/25 10:00 UNV Daptomycin / Sodium Chloride 50 ml @ 100 mls/hr DAILY IV 03/19/25 10:00 UNV Sodium Chloride 10 ml QSHIFT@10,22 IV 03/19/25 10:00 04/02/25 09:35 10 ML Linezolid 300 ml @ 150 mls/hr Q12HR IV 03/19/25 22:00 04/01/25 21:31 150 MLS/HR Propofol 100 ml @ 2.721 mls/ hr Q24H IV 03/21/25 11:15 04/02/25 09:36 13.605 MLS/HR Midazolam HCl 100 ml @ 1 mls/hr Q24H IV 03/21/25 11:15 03/21/25 10:42 1 MLS/HR Fentanyl Citrate 250 ml @ 2.5 mls/hr Q24H IV 03/21/25 11:15 04/02/25 09:39 7.5 MLS/HR Atorvastatin Calcium 40 mg HS GT 03/21/25 22:00 04/01/25 21:31 40 MG Vancomycin HCl 0 ml @ 0 mls/hr PER PHARMACY IV 03/23/25 22:45 UNV Enteral Nutritional Formula 1,000 ml 40ML/HR GT 03/26/25 08:15 04/01/25 21:31 1,000 ML Sucralfate 1 gm TID@0600,1130,2200 GT 03/27/25 11:30 04/02/25 06:25 1 GM Pantoprazole Sodium 40 mg BID IV 03/30/25 22:00 Cancel Pantoprazole Sodium 40 mg BID IV 03/30/25 22:00 04/02/25 09:49 40 MG Bumetanide 1 mg BIDD IV 03/30/25 18:00 04/02/25 06:25 1 MG Diltiazem HCl 125 ml @ 5 mls/hr Q24H IV 03/31/25 12:30 04/02/25 09:44 5 MLS/HR Levofloxacin 50 ml @ 50 mls/hr DAILY@0900 IV 04/02/25 09:00 04/02/25 09:34 50 MLS/HR Examination: GENERAL:Abnormal, LUNGS:Abnormal, CVS:Abnormal, SKIN:Abnormal laboratory and microbiology Laboratory Tests 04/02/25 02:20 Test 04/02/25 02:20 Range/Units Serum Glucose 121 H 74-106 mg/dL Microbiology Date/Time Source Procedure Growth Status 03/23/25 17:50 Blood Blood Culture - Final NO GROWTH AFTER 5 DAYS OF INCUBATION. Complete 03/21/25 11:31 Sputum Gram Stain - Final Complete 03/21/25 11:31 Respiratory Culture - Final Methicillin Resistant S.aureus Complete 03/21/25 02:30 Urine - Olsen Port Urine Culture - Final Complete 03/19/25 23:20 Nose MRSA Screen - Final Methicillin Resistant S.aureus Complete Problem List/Assessment/Plan Problem List/Assessment/Plan This is a 59-year-old male with past medical history of heart failure (HFrEF, methamphetamine induced, EF 15%), permanent AFib (on Eliquis), BPH, recurrent right-sided pleural effusion/thoracentesis, hypertension and dyslipidemia came to the hospital due to shortness of breath since 3 days. Nephrology is consulted due to raised creatinine. ROBERTO, on CKD 2, due to septic/cardiogenic shock-----> required acute Hd last 03/27 Acute respiratory failure intubated 03/21 Septic shock, MRSA bacteremia Acute on chronic systolic heart failure EF < 15% NSTEMI AFib, with a RVR Cirrhosis methamphetamine abuse Plan/recommendation: redeveloping shock now on 3 pressors, UOP now poor hb 7.7 today , no obvious bleeding sites per nurse rec PRBC today bumex drip and albumin CXR , exam congested nurse reports cultures sent yesterday but I cannot see them will rec reorder IV ABX on merrem and Zyvox strict I/O obtained consent to resume dialysis in next 24-48 hours from patient sister Myranda over the phone. She is aware he is high risk for poor outcomes and intolerance of dialysis poor overall prognosis Plan discussed with: Other (sister Myranda) My Orders My Orders Orders - FEDERICO HANSEN MD Procedure Category Date Status Time Urinalysis LAB 04/02/25 Logged 10:27 Basic Metabolic Panel LAB 04/03/25 Verified 04:00 Dietary Evaluation Review Comments: Nutrition Recommendation: 1) EN Nepro Carbsteady @ 45ml/hr x 24hr (goal) along with Pro-stat 1 pk BID. TF at goal volume along with Pro-stat provide 2144 kcal (100%), 118 gm protein (100%), and 785 ml free water. 2) Consider TPN/PN if NPO>7 days 3) Monitor NPO status, lab values, weight trend, and I/O Expected Outcomes/Goals: Intake to meet >75% estimated needs Lab values to improve FU 2-3 days CC Plasma Assessment Blood Product Administration S: [id number] FEDERICO HANSEN MD Apr 02, 2025 10:38
--- NOTE | 2025-04-02 12:02 | DVHPN2 ---
Progress Note - Dictate Date Seen: Apr 02, 2025 Medical Necessity Reason Pt with a Central, PICC or Fol: No The following are medically ne: Central Line (HD catheter), Olsen Catheter vital signs Vital Sign Date Time Temp Pulse Resp B/P (MAP) Pulse Ox O2 Delivery O2 Flow Rate FiO2 04/02/25 11:30 68 26 95/55 (68) 99 04/02/25 10:02 30 04/02/25 08:00 96.7 96.7 04/02/25 06:00 Mechanical Ventilator+ Total Intake and Output 04/01/25 04/01/25 04/02/25 15:00 23:00 07:00 Intake Total 774.50 ml 917.225 ml 694.216 ml Output Total 175 ml 38 ml Balance 774.50 ml 742.225 ml 656.216 ml medications Current Medications Medications Dose Ordered Sig/Zainab Route Start Time Stop Time Status Last Admin Dose Admin Ondansetron HCl 4 mg Q4HP PRN IV 03/18/25 19:15 Acetaminophen 650 mg Q6HP PRN PO 03/18/25 19:15 Nitroglycerin 0.4 mg Q5MINP PRN SL 03/18/25 19:15 Phenylephrine HCl 80 mg/Sodium Chloride 250 ml @ 7.5 mls/hr Q24H IV 03/19/25 09:15 04/02/25 09:40 33.75 MLS/HR Norepinephrine Bitartrate 32 mg/ Sodium Chloride 250 ml @ 0.938 mls/ hr Q24H IV 03/19/25 09:15 04/02/25 04:25 0.938 MLS/HR Vasopressin 20 units/Sodium Chloride 100 ml @ 9 mls/hr Q11H7M IV 03/19/25 09:15 04/02/25 10:03 9 MLS/HR Meropenem 50 ml @ 17 mls/hr DAILY IV 03/19/25 10:00 UNV Daptomycin / Sodium Chloride 50 ml @ 100 mls/hr DAILY IV 03/19/25 10:00 UNV Sodium Chloride 10 ml QSHIFT@10,22 IV 03/19/25 10:00 04/02/25 09:35 10 ML Linezolid 300 ml @ 150 mls/hr Q12HR IV 03/19/25 22:00 04/02/25 11:12 150 MLS/HR Propofol 100 ml @ 2.721 mls/ hr Q24H IV 03/21/25 11:15 04/02/25 09:36 13.605 MLS/HR Midazolam HCl 100 ml @ 1 mls/hr Q24H IV 03/21/25 11:15 03/21/25 10:42 1 MLS/HR Fentanyl Citrate 250 ml @ 2.5 mls/hr Q24H IV 03/21/25 11:15 04/02/25 09:39 7.5 MLS/HR Atorvastatin Calcium 40 mg HS GT 03/21/25 22:00 04/01/25 21:31 40 MG Vancomycin HCl 0 ml @ 0 mls/hr PER PHARMACY IV 03/23/25 22:45 UNV Enteral Nutritional Formula 1,000 ml 40ML/HR GT 03/26/25 08:15 04/01/25 21:31 1,000 ML Sucralfate 1 gm TID@0600,1130,2200 GT 03/27/25 11:30 04/02/25 06:25 1 GM Pantoprazole Sodium 40 mg BID IV 03/30/25 22:00 Cancel Pantoprazole Sodium 40 mg BID IV 03/30/25 22:00 04/02/25 09:49 40 MG Diltiazem HCl 125 ml @ 5 mls/hr Q24H IV 03/31/25 12:30 04/02/25 09:44 5 MLS/HR Levofloxacin 50 ml @ 50 mls/hr DAILY@0900 IV 04/02/25 09:00 04/02/25 09:34 50 MLS/HR Bumetanide 2 mg BIDD IV 04/02/25 18:00 laboratory and microbiology Laboratory Tests 04/02/25 02:20 Test 04/02/25 02:20 Range/Units Serum Glucose 121 H 74-106 mg/dL Assessment/Plan Impression Acute hypoxemic respiratory failure Hx of substance abuse Bacteremia ROBERTO Patient seen and examined in ICU Events pt declining fever last night On mechanical ventilation S/p intubation PEEP 5, FiO2 30% On 3 pressors for hemodynamic support Labs and imaging reviewed ABG reviewed Management Vent support Titrate to maintain sats 90% or above Continue antibiotics Bronchodilators Monitor renal function Monitor electrolytes Supplement as needed may need HD unstable hemodynamics Pressors as needed for hemodynamic support To maintain a mean arterial pressure of 65 mmHg F/u cardiology F/u GI DVT prophylaxis Critical care time 35 minutes Dietary Evaluation Review Comments: Nutrition Recommendation: 1) EN Nepro Carbsteady @ 45ml/hr x 24hr (goal) along with Pro-stat 1 pk BID. TF at goal volume along with Pro-stat provide 2144 kcal (100%), 118 gm protein (100%), and 785 ml free water. 2) Consider TPN/PN if NPO>7 days 3) Monitor NPO status, lab values, weight trend, and I/O Expected Outcomes/Goals: Intake to meet >75% estimated needs Lab values to improve FU 2-3 days Plan discussed with: Other (rn) CC Plasma Assessment Blood Product Administration S: [id number] JESSICA RAYMUNDO MD Apr 02, 2025 12:02
[2025-04-02] MEDS: ALBUMIN 25% 100 ML IV ONE (12:44)
[2025-04-02] MEDS: BUMETANIDE 1mg/4ml VIAL (0.25mg/ml) IV ONE (13:49)
--- NOTE | 2025-04-02 15:49 | DVHPN2 ---
Progress Note Date Seen: Apr 02, 2025 Resident Creating Document: DONNIE PEDRO RESIDENT Medical Necessity Reason Pt with a Central, PICC or Fol: No The following are medically ne: Central Line (HD catheter), Olsen Catheter Subjective Review of Systems 59-year-old male who is hospital stay has been complicated with AFib with RVR, sepsis secondary to pneumonia, MRSA bacteremia, ROBERTO requiring hemodialysis, HFrEF-EF 15%, liver cirrhosis and positive stool occult. GI consultation for positive stool occult blood. Recommend FFP X 2 units, vitamin K today and tomorrow, Protonix drip, octreotide for 48 hours. 04/01 Patient seen and examined. T-max 100.2 F. CPAP trial today. WBC increased to 21. H&H stable. 04/02 - H&H downtrending, on 3 pressors, tube feeds on hold, bm today Objective vital signs Vital Sign Date Time Temp Pulse Resp B/P (MAP) Pulse Ox O2 Delivery O2 Flow Rate FiO2 04/02/25 15:29 88/50 04/02/25 15:00 70 23 91 04/02/25 14:55 97.9 97.9 04/02/25 14:05 30 04/02/25 12:00 Mechanical Ventilator+ Total Intake and Output 04/01/25 04/01/25 04/02/25 15:00 23:00 07:00 Intake Total 774.50 ml 917.225 ml 694.216 ml Output Total 175 ml 38 ml Balance 774.50 ml 742.225 ml 656.216 ml medications Current Medications Medications Dose Ordered Sig/Zainab Route Start Time Stop Time Status Last Admin Dose Admin Ondansetron HCl 4 mg Q4HP PRN IV 03/18/25 19:15 Acetaminophen 650 mg Q6HP PRN PO 03/18/25 19:15 Nitroglycerin 0.4 mg Q5MINP PRN SL 03/18/25 19:15 Phenylephrine HCl 80 mg/Sodium Chloride 250 ml @ 7.5 mls/hr Q24H IV 03/19/25 09:15 04/02/25 09:40 33.75 MLS/HR Norepinephrine Bitartrate 32 mg/ Sodium Chloride 250 ml @ 0.938 mls/ hr Q24H IV 03/19/25 09:15 04/02/25 04:25 0.938 MLS/HR Vasopressin 20 units/Sodium Chloride 100 ml @ 9 mls/hr Q11H7M IV 03/19/25 09:15 04/02/25 10:03 9 MLS/HR Meropenem 50 ml @ 17 mls/hr DAILY IV 03/19/25 10:00 UNV Daptomycin / Sodium Chloride 50 ml @ 100 mls/hr DAILY IV 03/19/25 10:00 UNV Sodium Chloride 10 ml QSHIFT@10,22 IV 03/19/25 10:00 04/02/25 09:35 10 ML Linezolid 300 ml @ 150 mls/hr Q12HR IV 03/19/25 22:00 04/02/25 11:12 150 MLS/HR Propofol 100 ml @ 2.721 mls/ hr Q24H IV 03/21/25 11:15 04/02/25 15:29 19.047 MLS/HR Midazolam HCl 100 ml @ 1 mls/hr Q24H IV 03/21/25 11:15 03/21/25 10:42 1 MLS/HR Fentanyl Citrate 250 ml @ 2.5 mls/hr Q24H IV 03/21/25 11:15 04/02/25 09:39 7.5 MLS/HR Atorvastatin Calcium 40 mg HS GT 03/21/25 22:00 04/01/25 21:31 40 MG Vancomycin HCl 0 ml @ 0 mls/hr PER PHARMACY IV 03/23/25 22:45 UNV Enteral Nutritional Formula 1,000 ml 40ML/HR GT 03/26/25 08:15 04/01/25 21:31 1,000 ML Sucralfate 1 gm TID@0600,1130,2200 GT 03/27/25 11:30 04/02/25 12:34 1 GM Pantoprazole Sodium 40 mg BID IV 03/30/25 22:00 Cancel Pantoprazole Sodium 40 mg BID IV 03/30/25 22:00 04/02/25 09:49 40 MG Diltiazem HCl 125 ml @ 5 mls/hr Q24H IV 03/31/25 12:30 04/02/25 09:44 5 MLS/HR Levofloxacin 50 ml @ 50 mls/hr DAILY@0900 IV 04/02/25 09:00 04/02/25 09:34 50 MLS/HR Bumetanide 2 mg BIDD IV 04/02/25 18:00 Examination Male patient frail-appearing, intubated and mechanically ventilated, RASS -1, responding to verbal and touch commands General: Well-built, afebrile, palor, mucosae are moist. Bleeding through right IJ catheter, mucosal membrane. Cardiovascular: Tachycardic and irregular S1 and S2. No murmurs, gallops or rubs. No JVD elevation. Pedal edema bilaterally Respiratory: Decreased breath sounds heard on auscultation, mechanically ventilated Abdomen: Soft, nontender, nondistended, normoactive bowel sounds, no rebound tenderness, no organomegaly, no masses Genitourinary: Deferred laboratory and microbiology Laboratory Tests 04/02/25 02:20 Test 04/02/25 02:20 Range/Units Serum Glucose 121 H 74-106 mg/dL Microbiology Date/Time Source Procedure Growth Status 04/01/25 11:20 Blood Blood Culture - Preliminary NO GROWTH AFTER 24 HOURS OF INCUBATION. Resulted 04/01/25 10:21 Sputum Gram Stain - Final Resulted 04/01/25 10:21 Sputum Respiratory Culture - Preliminary Resulted 04/01/25 10:15 Voided Urine Urine Culture - Preliminary No growth Resulted 03/19/25 23:20 Nose MRSA Screen - Final Methicillin Resistant S.aureus Complete Labs and/or images reviewed: Labs reviewed by me, Image(s) reviewed by me Problem List/Assessment/Plan Problem List/Assessment/Plan Alcoholic cirrhosis -meld score 27 Ruled out GI bleed at this time Ruled out esophageal varices Anemia likely iron-deficiency versus chronic kidney disease Septic shock with MRSA bacteremia Acute hypoxic respiratory failure status post intubation Ascites Acute on chronic HFrEF exacerbation-EF 15-20% Acute kidney injury needing hemodialysis Atrial fibrillation with RVR Hypertension Plan: Recommendation: Patient underwent upper EGD 03/31 which showed traumatic injury to his lips and mouth, 1-2 cm sliding-type hiatal hernia with grade B to C erosive esophagitis with distal linear esophageal ulcers. Mild antral gastritis , moderate duodenitis we will hyperemia. Continue Protonix 40 mg IV b.i.d., Carafate suspension 1 g 4 times a day Recommend enteral feeding May proceed with GELY as per Cardiology Follow up with biopsy results Rest of management per primary team Recommend discontinuing diltiazem drip given EF 20% poor prognosis Thank you for consulting GI Plan discussed with the patient in which all questions been answered Case discussed with primary nurse, Dr. Painting Plan discussed with: Other Dietary Evaluation Review Comments: Nutrition Recommendation: 1) EN Nepro Carbsteady @ 45ml/hr x 24hr (goal) along with Pro-stat 1 pk BID. TF at goal volume along with Pro-stat provide 2144 kcal (100%), 118 gm protein (100%), and 785 ml free water. 2) Consider TPN/PN if NPO>7 days 3) Monitor NPO status, lab values, weight trend, and I/O Expected Outcomes/Goals: Intake to meet >75% estimated needs Lab values to improve FU 2-3 days CC Plasma Assessment Blood Product Administration S: [id number] DONNIE PEDRO RESIDENT Apr 02, 2025 15:48
--- NOTE | 2025-04-02 16:51 | DVHPN2 ---
Subjective PATIENT'S REMAINS INTUBATED AND SEDATED CURRENTLY ON MULTIPLE VASOPRESSORS. IN THE EVENING PATIENT'S SISTER CALLED AND PATIENT WAS REQUESTED TO BE DNR . Reviewed: Care Plan, H&P, Labs, Medications, Previous Orders Changes from previous H/P or p: No Changes General: Per HPI Objective Vitals Vital Signs Date Time Temp Pulse Resp B/P (MAP) Pulse Ox O2 Delivery O2 Flow Rate FiO2 04/02/25 16:15 69 23 84/46 (59) 92 04/02/25 16:02 30 04/02/25 14:55 97.9 97.9 04/02/25 12:00 Mechanical Ventilator+ Intake/Output Intake and Output 04/02/25 07:00 Intake Total 2385.941 ml Output Total 213 ml Balance 2172.941 ml Intake Oral 50 ml IV Total 2171.941 ml Tube Feeding 164 ml Output Urine Total 213 ml # Bowel Movements 3 Exam HEENT PUPILS ARE REACTIVE NECK IS SUPPLE CV IS S1-S2 IRREGULAR IRREGULAR RATE AND RHYTHM RESPIRATORY DIMINISHED BREATH SOUNDS BASES GI POSITIVE BOWEL SOUND EXTREMITY NO EDEMA ENGINE MANAGER INTUBATED AND SEDATED General Appearance: mild distress, Other (Intubated, on vent) HEENT: Atraumatic, PERRLA, Other (bleeding from oral mucosa) Lungs: Clear to auscultation, Normal air movement, Other (Mechanical ventilation) Cardiovascular: Normal S1, Normal S2 Abdomen: Normal bowel sounds, Soft, No tenderness, No hepatospenomegaly, No masses Genitourinary: No Apparent Abnormalities (Olsen catheter) Musculoskeletal: Other (Unable to assess) Neuro: Other (Unable to assess) Skin: Dry, Intact Psych/Mental Status: Other (Intubated, on vent, unable to exam) Medications Current Medications Medications Dose Ordered Sig/Zainab Route Start Time Stop Time Status Last Admin Dose Admin Ondansetron HCl 4 mg Q4HP PRN IV 03/18/25 19:15 Acetaminophen 650 mg Q6HP PRN PO 03/18/25 19:15 Nitroglycerin 0.4 mg Q5MINP PRN SL 03/18/25 19:15 Phenylephrine HCl 80 mg/Sodium Chloride 250 ml @ 7.5 mls/hr Q24H IV 03/19/25 09:15 04/02/25 09:40 33.75 MLS/HR Norepinephrine Bitartrate 32 mg/ Sodium Chloride 250 ml @ 0.938 mls/ hr Q24H IV 03/19/25 09:15 04/02/25 04:25 0.938 MLS/HR Vasopressin 20 units/Sodium Chloride 100 ml @ 9 mls/hr Q11H7M IV 03/19/25 09:15 04/02/25 10:03 9 MLS/HR Meropenem 50 ml @ 17 mls/hr DAILY IV 03/19/25 10:00 UNV Daptomycin / Sodium Chloride 50 ml @ 100 mls/hr DAILY IV 03/19/25 10:00 UNV Sodium Chloride 10 ml QSHIFT@10,22 IV 03/19/25 10:00 04/02/25 09:35 10 ML Linezolid 300 ml @ 150 mls/hr Q12HR IV 03/19/25 22:00 04/02/25 11:12 150 MLS/HR Propofol 100 ml @ 2.721 mls/ hr Q24H IV 03/21/25 11:15 04/02/25 15:29 19.047 MLS/HR Midazolam HCl 100 ml @ 1 mls/hr Q24H IV 03/21/25 11:15 03/21/25 10:42 1 MLS/HR Fentanyl Citrate 250 ml @ 2.5 mls/hr Q24H IV 03/21/25 11:15 04/02/25 09:39 7.5 MLS/HR Atorvastatin Calcium 40 mg HS GT 03/21/25 22:00 04/01/25 21:31 40 MG Vancomycin HCl 0 ml @ 0 mls/hr PER PHARMACY IV 03/23/25 22:45 UNV Enteral Nutritional Formula 1,000 ml 40ML/HR GT 03/26/25 08:15 04/01/25 21:31 1,000 ML Sucralfate 1 gm TID@0600,1130,2200 GT 03/27/25 11:30 04/02/25 12:34 1 GM Pantoprazole Sodium 40 mg BID IV 03/30/25 22:00 Cancel Pantoprazole Sodium 40 mg BID IV 03/30/25 22:00 04/02/25 09:49 40 MG Diltiazem HCl 125 ml @ 5 mls/hr Q24H IV 03/31/25 12:30 04/02/25 09:44 5 MLS/HR Levofloxacin 50 ml @ 50 mls/hr DAILY@0900 IV 04/02/25 09:00 04/02/25 09:34 50 MLS/HR Bumetanide 2 mg BIDD IV 04/02/25 18:00 Epinephrine HCl 250 ml @ 7.5 mls/hr Q24H IV 04/02/25 16:30 Laboratory Results Laboratory Tests 04/02/25 02:20 Chemistry Test 04/02/25 02:20 Calcium Level 7.1 mg/dL (8.7-10.4) L Magnesium Level 1.9 mg/dL (1.6-2.6) Urinalysis Test 03/21/25 00:00 03/21/25 03:10 Urine Color Dark-yellow (Yellow) Urine Clarity Turbid (Clear) H Urine pH 6.0 (5.0-9.0) Urine Specific [place] 1.014 (1.001-1.035) Urine Protein 2+ (Negative) H Urine Ketones Negative (Negative) Urine Blood 3+ /uL (Negative) H Urine Nitrite Negative (Negative) Urine Bilirubin 1+ (Negative) Urine Urobilinogen Normal mg/dL (Negative) Urine Leukocyte Esterase 2+ /uL (Negative) Urine RBC 896 /hpf (0 - 3) Urine Microscopic WBC 37 /HPF (0-3) H Urine Squamous Epithelial Cells Few /hpf (<5) Urine Bacteria None seen /hpf (None Seen) Urine Sperm Present /hpf (None Seen) Urine Glucose 1+ mg/dL (Normal) H Urine Creatinine 35.89 mg/dL (30.0-125.0) Urine Protein/Creatinine Ratio 30.21 Urine Sodium 95 mmol/L (40-220) Urine Total Protein 1084.4 mg/dL (1-14) H Blood Gas Results Test 04/02/25 07:19 Arterial Blood pH 7.378 (7.350-7.450) FiO2 % 30.0 Microbiology Microbiology Date/Time Source Procedure Growth Status 04/01/25 11:20 Blood Blood Culture - Preliminary NO GROWTH AFTER 24 HOURS OF INCUBATION. Resulted 04/01/25 10:21 Sputum Gram Stain - Final Resulted 04/01/25 10:21 Sputum Respiratory Culture - Preliminary Resulted 04/01/25 10:15 Voided Urine Urine Culture - Preliminary No growth Resulted 03/19/25 23:20 Nose MRSA Screen - Final Methicillin Resistant S.aureus Complete Assessment/Plan Assessment/Plan 59-YEAR-OLD MALE WITH A KNOWN HISTORY OF CHRONIC CONGESTIVE HEART FAILURE, CKD, HISTORY OF POLYSUBSTANCE ABUSE PRESENTED TO THE HOSPITAL WITH THE INCREASING SHORTNESS A BREATH FOUND TO HAVE 1. SEPTIC SHOCK CURRENTLY ON MULTIPLE VASOPRESSORS 2. MRSA PNEUMONIA. 3. MRSA BACTEREMIA 4. ACUTE ON CHRONIC CONGESTIVE HEART FAILURE WITH SYSTOLIC AND DIASTOLIC HEART FAILURE 5. ACUTE HYPOXIC RESPIRATORY FAILURE REQUIRING INTUBATION 6. AKA WITH A UNDERLYING CKD WITH A OLIGURIA 7. POLYSUBSTANCE ABUSE 8. THROMBOCYTOPENIA 9. METABOLIC ENCEPHALOPATHY -CONTINUE IV VASOPRESSORS, IV ANTIBIOTICS, PATIENT'S REMAINS CRITICAL PAROXYSMAL VERY POOR. Plan discussed with: Other My Orders Orders - BERNA SWENSON MD Procedure Category Date Status Time Epinephrine Hcl PHA 04/02/25 In Process 16:30 Date of Service: Apr 02, 2025 Billing Provider: BERNA SWENSON MD Common Visit Codes: [id number] INP/OBS CARE(HIGH) BERNA SWENSON MD Apr 02, 2025 16:51
[2025-04-02] MEDS: EPINEPHrine HCL 250 ML IV SCH (16:52)
[2025-04-02] MEDS: BUMETANIDE 1mg/4ml VIAL (0.25mg/ml) IV SCH (18:00)
[2025-04-02] MEDS ORDERED: LORazepam 2MG/ML-1ML VIAL IV PRN (19:15)
[2025-04-02] MEDS ORDERED: MORPHINE SULFATE INJ 2 MG/ml SYRG IV PRN (19:15)
--- NOTE | 2025-04-03 12:39 | DVHDS2 ---
Discharge Summary Date of Admission Mar 18, 2025 at 19:09 Date of Discharge: Apr 02, 2025 Admitting Diagnosis Acute on Chronic respiratory failure Labs/Diagnostic Data: Laboratory Results Test 04/02/25 07:19 04/02/25 02:20 04/01/25 09:57 04/01/25 03:19 Blood Gas Specimen Type Arterial Blood Gas Sample Site Right radial Blood Gas Patient Temperature 37.0 Arterial Blood Date Drawn [id number] Arterial Blood pH 7.378 (7.350-7.450) Arterial Blood Partial Pressure CO2 32.2 mmHg (35.0-48.0) Arterial Blood Partial Pressure O2 78.3 mmHg (83.0-108.0) Arterial Blood HCO3 18.5 mmol/L (21.0-28.0) Arterial Blood Oxygen Saturation 93.8 % (94.0-98.0) Arterial Blood Base Excess -5.9 mmol/L (-2.0-3.0) Arterial Blood Oxyhemoglobin 92.5 % (94.0-98.0) Arterial Blood Carboxyhemoglobin 0.7 % (0.5-1.5) Arterial Blood Methemoglobin 0.7 % (0.0-1.5) Arterial Blood Deoxyhemoglobin 6.1 % (0.0-5.0) Brian Test Modified Blood Gas Total Hemoglobin 8.90 g/dL (13.5-17.5) Blood Gas Set Respiration Rate 14.0 Blood Gas Modality Vent - ac FiO2 % 30.0 Blood Gas Tidal Volume 500.0 Blood Gas PEEP or CPAP 5.0 White Blood Count 21.3 10^3/uL (4.4-10.8) Red Blood Count 3.24 10^6/uL (4.5-5.90) Hemoglobin 7.7 g/dL (13.5-17.5) Hematocrit 24.6 % (41.0-53.0) Mean Corpuscular Volume 75.9 fL (80.0-100.0) Mean Corpuscular Hemoglobin 23.6 pg (28.0-32.0) Mean Corpuscular Hemoglobin Concent 31.1 g/dL (32.0-36.0) Red Cell Distribution Width 21.8 % (11.8-14.3) Platelet Count 92 10^3/uL (140-450) Mean Platelet Volume 10.0 fL (6.9-10.8) Neutrophils (%) (Auto) % (37.0-80.0) Lymphocytes (%) (Auto) % (10.0-50.0) Monocytes (%) (Auto) % (0.0-12.0) Basophils (%) (Auto) % (0.0-2.0) Neutrophils # (Auto) 10 ^3/uL (1.6-8.6) Lymphocytes # (Auto) 10 ^3/uL (0.4-5.4) Monocytes # (Auto) 10 ^3/uL (0-1.3) Differential Total Cells Counted 100.0 (100) Neutrophils % (Manual) 74 (37.0-80.0) Band Neutrophils % (Manual) 16 Lymphocytes % (Manual) 3 (10.0-50.0) Monocytes % (Manual) 6 (0-12) Eosinophils % (Manual) 0 (0-7) Basophils % (Manual) 0 (0.0-2.0) Metamyelocytes % (manual) 1 Myelocytes % (Manual) 0 Promyelocytes % (Manual) 0 Blast Cells % (Manual) 0 Reactive Lymphocytes 0 Platelet Estimate Decreased Hypochromasia (manual) Moderate Anisocytosis (manual) Slight Microcytosis Slight Sodium Level 137 mmol/L (136-145) Potassium Level 4.2 mmol/L (3.5-5.1) Chloride Level 91 mmol/L (98-107) Carbon Dioxide Level 26 mmol/L (20-31) Anion Gap 20 (5-15) Blood Urea Nitrogen 96 mg/dL (9-23) Creatinine 3.48 mg/dL (0.700-1.30) Glomerular Filtration Rate Calc 20 mL/min (>90) BUN/Creatinine Ratio 27.6 (10.0-20.0) Serum Glucose 121 mg/dL (74-106) Calcium Level 7.1 mg/dL (8.7-10.4) Magnesium Level 1.9 mg/dL (1.6-2.6) Blood Gas Spontaneous Rate 14 Blood Gas Spontaneous Tidal Volume 577 Blood Gas Pressure Support 8 Bl Gas Inspiratory/Expiratory Ratio 1:3.2 Eosinophils (%) (Auto) 0.2 % (0.0-7.0) Eosinophils # (Auto) 0 10 ^3/uL (0-0.8) Basophils # (Auto) 0.2 10 ^3/uL (0-0.2) Nucleated Red Blood Cells 0.1 % Prothrombin Time 13.4 sec (9.3-11.8) Prothrombin Time INR 1.30 (0.9-1.15) Activated Partial Thromboplast Time 31.7 SEC (24.5-34.5) Test 03/30/25 03:00 03/29/25 02:50 03/28/25 11:08 03/28/25 02:40 Phosphorus Level 5.0 mg/dL (2.4-5.1) Polychromasia Hepatitis C Antibody Negative (Negative) Target Cells Few Stomatocytes Test 03/27/25 15:14 03/27/25 03:27 03/26/25 01:45 03/21/25 06:16 Fibrinogen 223 mg/dL (177-375) Fibrin Degradation Products 10 ug/mL (<5) Total Bilirubin 4.3 mg/dL (0.2-1.0) Aspartate Amino Transferase (AST) 135 U/L (13-40) Alanine Aminotransferase (ALT) 74 U/L (7-40) Alkaline Phosphatase 343 U/L (46-116) Total Protein 5.6 g/dL (5.7-8.2) Albumin 3.1 g/dL (3.2-4.8) Stool Occult Blood Positive (Negative) Stool Occult Blood Sample #3 (Negative) POC Glucose 177 mg/dl (70-106) Test 03/21/25 03:10 03/21/25 00:00 03/20/25 22:55 03/20/25 11:42 Urine Creatinine 35.89 mg/dL (30.0-125.0) Urine Protein/Creatinine Ratio 30.21 Urine Sodium 95 mmol/L (40-220) Urine Total Protein 1084.4 mg/dL (1-14) Hepatitis B Surface Antigen Negative (Negative) Urine Color Dark-yellow (Yellow) Urine Clarity Turbid (Clear) Urine pH 6.0 (5.0-9.0) Urine Specific [place] 1.014 (1.001-1.035) Urine Protein 2+ (Negative) Urine Ketones Negative (Negative) Urine Blood 3+ /uL (Negative) Urine Nitrite Negative (Negative) Urine Bilirubin 1+ (Negative) Urine Urobilinogen Normal mg/dL (Negative) Urine Leukocyte Esterase 2+ /uL (Negative) Urine RBC 896 /hpf (0 - 3) Urine Microscopic WBC 37 /HPF (0-3) Urine Squamous Epithelial Cells Few /hpf (<5) Urine Bacteria None seen /hpf (None Seen) Urine Sperm Present /hpf (None Seen) Urine Glucose 1+ mg/dL (Normal) Urine Opiates Screen Neg (NEGATIVE) Urine Fentanyl Screen Neg (NEGATIVE) Urine Barbiturates Screen Neg (NEGATIVE) Urine Phencyclidine Screen Neg (NEGATIVE) Urine Amphetamines Screen Pos (NEGATIVE) Urine Benzodiazepines Screen Neg (NEGATIVE) Urine Cocaine Screen Neg (NEGATIVE) Urine Cannabinoids Screen Neg (NEGATIVE) Blood Gas Liter Flow 10.00 Ammonia 24 umol/L (11-32) Test 03/19/25 19:49 03/19/25 14:30 03/18/25 17:17 03/18/25 15:30 Parathyroid Hormone (Intact) 85.0 pg/mL (18.4-80.1) Influenza Type A Antigen Negative (Negative) Influenza Type B Antigen Negative (Negative) SARS-CoV-2 Antigen (Rapid) Negative (NEGATIVE) Lactic Acid Level 4.1 mmol/L (0.4-2.0) Free Thyroxine Index 1.4 (1.2-4.9) Thyroxine (T4) 4.0 ug/dL (4.5-12.0) Triiodothyronine (T3) Uptake 36 % (24-39) Test 03/18/25 13:45 D-Dimer, Quantitative 24.58 mg/L FEU (0.0-0.49) Troponin I High Sensitivity 213 ng/L (</=54) B-Type Natriuretic Peptide 3471.13 pg/mL (0-100) Thyroid Stimulating Hormone (TSH) 4.95 uIU/mL (0.55-4.78) Digoxin Level 0.35 ng/mL (0.8-2) Other Laboratory Tests 04/02/25 02:20 Brief Hx & Hospital Course: History of Present Illness 59-year-old male presents for evaluation of shortness for breath. Patient reports a two day history of worsening shortness for breath with generalized weakness and chest pressure. Denies nausea or vomiting. No headache. Patient noted to be in AFib with RVR. Course of hospitalization: Patient had complicated course of hospital stay including worsening respiratory failure requiring mechanical ventilation. Patient was noted to be positive for MRSA of the blood as well as sputum. Patient was started on empiric antibiotic therapy, including Zyvox. Patient's renal function also deteriorated, for which patient was placed on hemodialysis. Patient's shock has worsened, requiring maximum vasopressor support of three different agents. Patient's family decided to make the patient a compassionate extubation, for which he was extubated yesterday evening. Total time spent with patient discussing and formulating plan of care: 35 minutes. This medical document was created using an electronic medical record system with [employer] dictation system. Although this document has been carefully reviewed, there may still be some phonetic and typographical errors. These areas are purely typographical due to imperfections of the software programs, and do not reflect any compromise in the patient's medical care. Consults/Reason for consult Nephrology: Acute kidney injury requiring renal replacement therapy Cardiology: AFib with RVR severe heart failure Pulmonary: acute respiratory failure Condition at Discharge: Poor Final Diagnosis/Problems List -septic shock -acute hypoxic respiratory failure -acute on chronic systolic and diastolic heart failure -right pleural effusion -acute kidney injury -chronic kidney disease stage IIIB/four -PE ruled out -history of polysubstance abuse -thrombocytopenia -metabolic encephalopathy Discharge Disposition: at Hospital Discharge Instruct/Medications Scheduled Apixaban Base (Eliquis), 5 MG PO BID Atorvastatin Calcium (Atorvastatin Calcium), 40 MG PO DAILY Bumetanide (Bumex Tablet), 1 MG PO BID Carvedilol (Carvedilol), 3.125 MG PO BID Digoxin (Digoxin), 125 MCG PO DAILY Potassium Chloride (Potassium Chloride ER), 10 MEQ PO DAILY Sacubitril-Valsartan (Entresto 24-26 mg), 1 TAB PO BID Tamsulosin Hcl (Tamsulosin Hcl), 1 CAP PO DAILY 36 Discharge Statement: "Patient was advised to return to the ER or call 911 if any headaches, dizziness, shortness of breath, chest pain, abdominal pain, bleeding, fevers, or worsening of medical condition. Patient was counseled about treatment plan, medications, possible side effects, patientverbalized understanding. All questions were answered to the best of my ability. This discharge took greater then 30 minutes in planning, reviewing documentation, counseling the patient, and discussing with other team members." ASSESSMENT ASSESSMENT Assessment Date of Service: Apr 03, 2025 Billing Provider: ANGELA VAUGHAN NP Visit Codes: [id number] DISCH DAY >30min ANGELA VAUGHAN NP Apr 03, 2025 12:39
== END 2025-04-03 02:14 | DRG 720 ==
LOC: EDBD 13:10 → ER 13:10 → OVERFLOW 19:09 → ICU CENTRL 03-20 03:02
PROVIDERS: ADMIT Nurse Practitioner Acute Care; ATTEND Nurse Practitioner Acute Care
PROC: 02HV33Z Insertion of Infusion Device into Superior Vena Cava, Percutaneous Approach (ICD-10-PCS; 2025-03-19)
PROC: B548ZZA Ultrasonography of Superior Vena Cava, Guidance (ICD-10-PCS; 2025-03-19)
PROC: 0BH17EZ Insertion of Endotracheal Airway into Trachea, Via Natural or Artificial Opening (ICD-10-PCS; principal; 2025-03-21)
PROC: 5A1955Z Respiratory Ventilation, Greater than 96 Consecutive Hours (ICD-10-PCS; 2025-03-21)
PROC: 02HV33Z Insertion of Infusion Device into Superior Vena Cava, Percutaneous Approach (ICD-10-PCS; 2025-03-21)
PROC: B548ZZA Ultrasonography of Superior Vena Cava, Guidance (ICD-10-PCS; 2025-03-21)
PROC: 5A1D70Z Performance of Urinary Filtration, Intermittent, Less than 6 Hours Per Day (ICD-10-PCS; 2025-03-21)
PROC: 5A1D70Z Performance of Urinary Filtration, Intermittent, Less than 6 Hours Per Day (ICD-10-PCS; 2025-03-23)
PROC: 5A1D70Z Performance of Urinary Filtration, Intermittent, Less than 6 Hours Per Day (ICD-10-PCS; 2025-03-24)
PROC: 5A1D70Z Performance of Urinary Filtration, Intermittent, Less than 6 Hours Per Day (ICD-10-PCS; 2025-03-26)
PROC: 5A1D70Z Performance of Urinary Filtration, Intermittent, Less than 6 Hours Per Day (ICD-10-PCS; 2025-03-27)
PROC: 0DB98ZX Excision of Duodenum, Via Natural or Artificial Opening Endoscopic, Diagnostic (ICD-10-PCS; 2025-03-31)
PROC: 0DB68ZX Excision of Stomach, Via Natural or Artificial Opening Endoscopic, Diagnostic (ICD-10-PCS; 2025-03-31)
PROC: 0DB38ZX Excision of Lower Esophagus, Via Natural or Artificial Opening Endoscopic, Diagnostic (ICD-10-PCS; 2025-03-31)
PROC: 30233N1 Transfusion of Nonautologous Red Blood Cells into Peripheral Vein, Percutaneous Approach (ICD-10-PCS; 2025-04-02)
DX: A41.02 Sepsis due to Methicillin resistant Staphylococcus aureus (principal); R57.0 Cardiogenic shock; R65.21 Severe sepsis with septic shock; I21.4 Non-ST elevation (NSTEMI) myocardial infarction; J96.21 Acute and chronic respiratory failure with hypoxia; I50.43 Acute on chronic combined systolic (congestive) and diastolic (congestive) heart failure; G93.41 Metabolic encephalopathy; J15.212 Pneumonia due to Methicillin resistant Staphylococcus aureus; Z99.2 Dependence on renal dialysis; D69.6 Thrombocytopenia, unspecified; N17.9 Acute kidney failure, unspecified; D68.8 Other specified coagulation defects; I13.0 Hypertensive heart and chronic kidney disease with heart failure and stage 1 through stage 4 chronic kidney disease, or unspecified chronic kidney disease; F15.10 Other stimulant abuse, uncomplicated; E03.9 Hypothyroidism, unspecified; K70.30 Alcoholic cirrhosis of liver without ascites; D64.9 Anemia, unspecified; N18.4 Chronic kidney disease, stage 4 (severe); I47.20 Ventricular tachycardia, unspecified; Z66 Do not resuscitate; I42.9 Cardiomyopathy, unspecified; I48.91 Unspecified atrial fibrillation; E87.1 Hypo-osmolality and hyponatremia; R18.8 Other ascites; E87.6 Hypokalemia; E78.5 Hyperlipidemia, unspecified; K44.9 Diaphragmatic hernia without obstruction or gangrene; K22.10 Ulcer of esophagus without bleeding; F17.210 Nicotine dependence, cigarettes, uncomplicated; E87.5 Hyperkalemia; I48.21 Permanent atrial fibrillation; N40.0 Benign prostatic hyperplasia without lower urinary tract symptoms; R74.01 Elevation of levels of liver transaminase levels; I48.0 Paroxysmal atrial fibrillation; Z20.822 Contact with and (suspected) exposure to COVID-19; E86.0 Dehydration; I48.92 Unspecified atrial flutter; K29.70 Gastritis, unspecified, without bleeding; K29.80 Duodenitis without bleeding; Z88.0 Allergy status to penicillin; Z79.899 Other long term (current) drug therapy; Z88.8 Allergy status to other drugs, medicaments and biological substances
CPT/HCPCS: 36415; 36556; 36569; 36600; 43239; 71045; 76604; 76705; 76775; 76937; 78582; 80048; 80053; 80162; 80307; 81001; 82140; 82270; 82570; 82805; 82962; 83605; 83735; 83880; 83970; 84100; 84132; 84156; 84300; 84443; 84484; 85007; 85025; 85027; 85362; 85379; 85384; 85610; 85730; 86803; 86850; 86900; 86901; 86920; 87040; 87070; 87077; 87081; 87086; 87186; 87205; 87340; 87426; 87804; 90935; 93005; 93306; 93970; 94002; 94003; 94640; 96361; 96365; 96375; 99291; G0378; J0169; J1642; J1815; J1885; J1956; J2185; J2470; J2704; J3430; J3480; P9047